=== PATIENT | male | born 1940 | race African-American/Black ===

== ENCOUNTER 2017-02-02 11:32 | Emergency (ER) | payer MEDICAID, MEDICARE, OTHER ==
--- NOTE | 2017-02-02 12:27 | ER Document Report ---
ED Medical Screen (RME) - General Chief Complaint: Leg Pain Stated Complaint: LEFT SIDE, FOOT AND LEG PAIN Time Seen by Provider: 02/02/17 12:17 Mode of Arrival: Ambulatory Information source: Patient, Relative - son Notes: Patient presents with his son for complaints of left ankle pain has been her last couple days. Son reports for the past 2 weeks patient has had increased confusion and slurred speech, progressively worse. Patient was seen by Dr. Landrum and is being scheduled for CT scan. TRAVEL OUTSIDE OF THE [place] IN LAST 30 DAYS: No - Related Data Allergies/Adverse Reactions: No Known Allergies Allergy (Verified 02/02/17 12:15) Past Medical History Renal/ Medical History: Denies: Hx Peritoneal Dialysis Physical Exam - Vital signs Vitals: Temp Pulse Resp BP Pulse Ox 98.5 F 67 16 165/104 H 99 02/02/17 11:39 02/02/17 11:39 02/02/17 11:39 02/02/17 11:39 02/02/17 11:39 Course - Vital Signs Vital signs: Temp Pulse Resp BP Pulse Ox 98.5 F 64 16 175/96 H 99 02/02/17 16:08 02/02/17 16:08 02/02/17 16:08 02/02/17 16:08 02/02/17 16:08 - Laboratory Result Diagrams: 02/02/17 12:45 02/02/17 12:45 Laboratory results interpreted by me: 02/02/17 02/02/17 02/02/17 12:40 12:45 12:45 MCHC 31.6 L RDW 15.9 H Plt Count 133 L Monocytes % 14.6 H Est GFR (Non-Af Amer) 58 L Direct Bilirubin 0.5 H Ur Leukocyte Esterase TRACE H Doctor's Discharge - Discharge Clinical Impression: Left foot pain, Gout Condition: Stable Disposition: HOME, SELF-CARE Additional Instructions: Take Ibuprofen 600 mg by mouth every 6 hours with food to help out with your foot pain. Your EKG is not normal, but we do not have an old one to compare this to. SInce you are not having any chest pain, you must follow-up with your primary care physician to have your symptoms rechecked. Gout You have been diagnosed as having gout. Gout is a problem caused by an excess of uric acid, a natural chemical found in the body. The cause of this disease is unknown. Gout arthritis occurs when crystals of uric acid form in the joints. The big toe is the most common joint involved, but any joint can become affected. Persons with gout may also form uric acid kidney stones, resulting in flank pain and blood in the urine. Nodules of uric acid may form under the skin. The first step of treatment is to decrease the inflammation in the joint with antiinflammatory medication. Medication to lower the uric acid level in the blood may then be prescribed. This medication should be taken regularly, as any sudden change in dosage may provoke an attack of gout. Some foods, such as red meat, can provoke an attack in some gout sufferers. Call the doctor if new symptoms arise, or if you do not improve. Gout Diet Changing your diet can decrease the uric acid in your blood. High levels of uric acid cause gouty arthritis and uric acid kidney stones. If you have gout , you should avoid meats that are high in purine. Meat products to avoid include liver, kidneys, and brains. In general, poultry is better than red meats. Seafoods to avoid include anchovies, sardines, villarreal, mackerel, and scallops. In addition to limiting purine-rich foods, people with gout should limit protein intake to 10-15% of total calories. Carbohydrate intake should be around 50% of total daily calories. Limit fat intake to 30% of total daily calories. Cholesterol intake should be less than 300 mg/day. Maintain or achieve a healthy body weight. Weight loss should be gradual. Rapid weight loss can actually increase uric acid levels temporarily. Alcohol, especially beer, should be avoided. Get plenty of fluids. This dilutes urinary uric acid, and helps prevent uric acid kidney stones. Drink eight to twelve cups of water daily. Referrals: IVAN LANDRUM MD [ACTIVE STAFF] - Follow up as needed
[2017-02-02 13:11] LABS: APPEARANCE,URINE CLEAR; BILIRUBIN,URINE NEGATIVE (NEGATIVE); GLUCOSE, URINE NEGATIVE (NEGATIVE); KETONES,URINE NEGATIVE (NEGATIVE); LEUKOCYTE ESTERASE,URINE TRACE (NEGATIVE); NITRITE,URINE NEGATIVE (NEGATIVE); PROTEIN,URINE NEGATIVE (NEGATIVE); URINE SPECIFIC GRAVITY 1.011; UROBILINOGEN,URINE NEGATIVE mg/dL (<2.0)
[2017-02-02 13:13] LABS: PROTHROMBIN TIME 12.7 SEC (11.4-15.4)
[2017-02-02 13:14] LABS: ABSOLUTE LYMPHOCYTES (AUTO) 1.4 10^3/uL (0.5-4.7); ABSOLUTE MONOCYTES (AUTO) 1.4 10^3/uL (0.1-1.4); ABSOLUTE NEUT (AUTO) 6.7 10^3/uL (1.7-8.2); BASOPHILS % (AUTO) 0.4 % (0-2); EOSINOPHILS % (AUTO) 0.4 % (0-6); HEMATOCRIT 47.5 % (37.9-51.0); HGB HCT DIFFERENCE -2.5; LYMPHOCYTES % (AUTO) 14.3 % (13-45); MEAN CORPUSCULAR HEMOGLOBIN 27.3 pg (27.0-33.4); MEAN CORPUSCULAR HGB CONC 31.6 g/dL (32.0-36.0); MEAN CORPUSCULAR VOLUME 87 fl (80-97); MONOCYTES % (AUTO) 14.6 % (3-13); RED BLOOD COUNT 5.48 10^6/uL (4.35-5.55); RED CELL DISTRIBUTION WIDTH 15.9 % (11.5-14.0); SEGMENTED NEUTROPHILS % (AUTO) 70.3 % (42-78); WHITE BLOOD COUNT 9.5 10^3/uL (4.0-10.5)
[2017-02-02 13:23] LABS: ALANINE AMINOTRANSFERASE 35 U/L (21-72); ALBUMIN 4.2 g/dL (3.5-5.0); ALKALINE PHOSPHATASE 101 U/L (38-126); ANION GAP 12 (5-19); ASPARTATE AMINO TRANSFERASE 27 U/L (17-59); BILIRUBIN,DIRECT 0.5 mg/dL (0.0-0.4); BILIRUBIN,TOTAL 0.7 mg/dL (0.2-1.3); BLOOD UREA NITROGEN 16 mg/dL (7-20); CARBON DIOXIDE 27 mmol/L (22-30); CHLORIDE 104 mmol/L (98-107); CREATININE RESULT 1.21 mg/dL (0.52-1.25); GLUCOSE 94 mg/dL (75-110); POTASSIUM 4.6 mmol/L (3.6-5.0); SODIUM 142.7 mmol/L (137-145); TOTAL PROTEIN 7.8 g/dL (6.3-8.2)
--- NOTE | 2017-02-02 13:51 | EKG REPORT ---
SEVERITY:- ABNORMAL ECG - ATRIAL-PACED COMPLEXES CONSIDER ANTERIOR INFARCT NONSPECIFIC T ABNORMALITIES, LATERAL LEADS : Confirmed by: Wilder Rizzo 02-Feb-2017 13:50:23
[2017-02-02] MEDS ORDERED: IBUPROFEN 600 MG TABLET PO ONE (14:10)
--- NOTE | 2017-02-02 14:21 | ER Document Report ---
ED Extremity Problem, Lower - General Chief Complaint: Leg Pain Stated Complaint: LEFT SIDE, FOOT AND LEG PAIN Time Seen by Provider: 02/02/17 12:17 Mode of Arrival: Ambulatory Notes: The patient is a 76-year-old male, past medical history hypertension, gout, history of [place], history of stroke, presents with 2 weeks of increasing left foot pain. In addition, he was having slurred speech a week ago, but he says that this has resolved. He saw his primary care physician, Dr. Landrum, yesterday and was started on Neurontin. He is also scheduled for an outpatient CT scan next week. He cannot remember what he takes in the past to help with his gout. He denies nausea, vomiting, numbness, tingling, focal weakness, blurry vision, chest pain, shortness of breath, fevers or headache. TRAVEL OUTSIDE OF THE [place] IN LAST 30 DAYS: No - Related Data Allergies/Adverse Reactions: No Known Allergies Allergy (Verified 02/02/17 12:15) Past Medical History - General Information source: Patient, Relative - son - Social History Smoking Status: Unknown if Ever Smoked Family History: Reviewed & Not Pertinent Patient has suicidal ideation: No Patient has homicidal ideation: No Renal/ Medical History: Denies: Hx Peritoneal Dialysis Review of Systems - Review of Systems Notes: REVIEW OF SYSTEMS: CONSTITUTIONAL: -fevers, -chills EENT: -eye pain, -difficulty swallowing, -nasal congestion CARDIOVASCULAR:-chest pain, -syncope. RESPIRATORY: -cough, -SOB GASTROINTESTINAL: -abdominal pain, -nausea, -vomiting, -diarrhea GENITOURINARY: -dysuria, -hematuria MUSCULOSKELETAL: +left foot pain, -back pain, -neck pain SKIN: -rash or skin lesions. HEMATOLOGIC: -easy bruising or bleeding. LYMPHATIC: -swollen, enlarged glands. NEUROLOGICAL: -altered mental status or loss of consciousness, -headache, - focal weakness or numbness PSYCHIATRIC: -anxiety, -depression. ALL OTHER SYSTEMS REVIEWED AND NEGATIVE. Physical Exam - Vital signs Vitals: Temp Pulse Resp BP Pulse Ox 98.5 F 67 16 165/104 H 99 02/02/17 11:39 02/02/17 11:39 02/02/17 11:39 02/02/17 11:39 02/02/17 11:39 - Notes Notes: PHYSICAL EXAMINATION: GENERAL: Well-appearing, well-nourished and in no acute distress. HEAD: Atraumatic, normocephalic. EYES: Pupils equal round and reactive to light, extraocular movements intact, sclera anicteric, conjunctiva are normal. ENT: nares patent, oropharynx clear without exudates. Moist mucous membranes. NECK: Normal range of motion, supple without lymphadenopathy LUNGS: Breath sounds clear to auscultation bilaterally and equal. No wheezes rales or rhonchi. HEART: Regular rate and rhythm without murmurs ABDOMEN: Soft, nontender, normoactive bowel sounds. No guarding, no rebound. No masses appreciated. EXTREMITIES: Mild tenderness and swelling over left foot diffusely, no erythema and storng pulses, normal range of motion, no pitting or edema. No cyanosis. NEUROLOGICAL: Cranial nerves grossly intact. Normal speech. Normal sensory and motor exams. PSYCH: Normal mood, normal affect. SKIN: Warm, Dry, normal turgor, no rashes or lesions noted. Course - Re-evaluation Re-evalutation: Labs, head CT and EKG performed prior to my evaluation in triage. Patient with absolutely no chest pain or neuro symptoms at this time. EKG shows nonspecific T abnormalities in the anterior lateral leads. Repeat EKG performed 2 hours later shows no changes. Troponin negative. No old EKG to compare. Head CT does not show any acute bleed, but it does show evidence of old infarcts. Patient with no neuro symptoms at this time. Patient's kidney function is normal, so will begin NSAIDs to help with his gout pain. He also has Neurontin prescribed to him by his primary care physician yesterday. Strong pulses and no evidence of necrotizing fasciitis or acute limb ischemia. Will discharge patient home with follow-up at his primary care physician. - Vital Signs Vital signs: Temp Pulse Resp BP Pulse Ox 98.5 F 67 16 182/98 H 100 02/02/17 11:39 02/02/17 11:39 02/02/17 14:07 02/02/17 14:07 02/02/17 14:07 - Laboratory Result Diagrams: 02/02/17 12:45 02/02/17 12:45 Laboratory results interpreted by me: 02/02/17 02/02/17 02/02/17 12:40 12:45 12:45 MCHC 31.6 L RDW 15.9 H Plt Count 133 L Monocytes % 14.6 H Est GFR (Non-Af Amer) 58 L Direct Bilirubin 0.5 H Ur Leukocyte Esterase TRACE H - Diagnostic Test Radiology reviewed: Image reviewed, Reports reviewed Radiology results interpreted by me: Head CT: NAD, evidence of old infarcts Left foot x-ray: No fractures or dislocations - EKG Interpretation by Me EKG shows normal: Sinus rhythm, [place], Intervals, QRS Complexes When compared to previous EKG there are: Previous EKG unavailable Additional EKG results interpreted by me: Non-specific ST changes in V3 and V4. 2 EKGs performed 2 hours apart show no dynamic changes. Discharge - Discharge Clinical Impression: Left foot pain Gout Qualifiers: Gout site: foot Gout etiology: unspecified cause Laterality: left Chronicity: chronic Presence of tophus: without tophus Condition: Stable Disposition: HOME, SELF-CARE Additional Instructions: Take Ibuprofen 600 mg by mouth every 6 hours with food to help out with your foot pain. Your EKG is not normal, but we do not have an old one to compare this to. SInce you are not having any chest pain, you must follow-up with your primary care physician to have your symptoms rechecked. Gout You have been diagnosed as having gout. Gout is a problem caused by an excess of uric acid, a natural chemical found in the body. The cause of this disease is unknown. Gout arthritis occurs when crystals of uric acid form in the joints. The big toe is the most common joint involved, but any joint can become affected. Persons with gout may also form uric acid kidney stones, resulting in flank pain and blood in the urine. Nodules of uric acid may form under the skin. The first step of treatment is to decrease the inflammation in the joint with antiinflammatory medication. Medication to lower the uric acid level in the blood may then be prescribed. This medication should be taken regularly, as any sudden change in dosage may provoke an attack of gout. Some foods, such as red meat, can provoke an attack in some gout sufferers. Call the doctor if new symptoms arise, or if you do not improve. Gout Diet Changing your diet can decrease the uric acid in your blood. High levels of uric acid cause gouty arthritis and uric acid kidney stones. If you have gout , you should avoid meats that are high in purine. Meat products to avoid include liver, kidneys, and brains. In general, poultry is better than red meats. Seafoods to avoid include anchovies, sardines, villarreal, mackerel, and scallops. In addition to limiting purine-rich foods, people with gout should limit protein intake to 10-15% of total calories. Carbohydrate intake should be around 50% of total daily calories. Limit fat intake to 30% of total daily calories. Cholesterol intake should be less than 300 mg/day. Maintain or achieve a healthy body weight. Weight loss should be gradual. Rapid weight loss can actually increase uric acid levels temporarily. Alcohol, especially beer, should be avoided. Get plenty of fluids. This dilutes urinary uric acid, and helps prevent uric acid kidney stones. Drink eight to twelve cups of water daily. Referrals: IVAN LANDRUM MD [ACTIVE STAFF] - Follow up as needed
[2017-02-02 16:09] VITALS: BP 175/96
--- NOTE | 2017-02-03 12:04 | EKG REPORT ---
SEVERITY:- ABNORMAL ECG - ATRIAL-PACED COMPLEXES CONSIDER ANTERIOR INFARCT AGE INDETERMINATE NONSPECIFIC T ABNORMALITIES, LATERAL LEADS : Confirmed by: Wilder Rizzo 03-Feb-2017 12:03:50
== END 2017-02-02 16:09 | disposition home or self-care (01) ==
LOC: ER 11:32
DX: M10.9 Gout, unspecified (principal); M79.672 Pain in left foot; M79.605 Pain in left leg; I10 Essential (primary) hypertension; I25.2 Old myocardial infarction; Z86.73 Personal history of transient ischemic attack (TIA), and cerebral infarction without residual deficits; Z79.899 Other long term (current) drug therapy
CPT/HCPCS: 93005; 99284; 36415; 85025; 85610; 80053; 81001; 84484; 73610; 71020; 70450; 93010; A9270

== ENCOUNTER 2017-02-07 12:24 | Emergency (ER) | payer MEDICARE ==
--- NOTE | 2017-02-07 12:59 | ER Document Report ---
ED Medical Screen (RME) - General Chief Complaint: Foot Pain Stated Complaint: LEFT LEG PAIN Time Seen by Provider: 02/07/17 12:54 Information source: Patient Notes: 76-year-old male who presents with the onset last week of some pain to his left leg. Patient states he has had gout multiple times. Patient states she was seen and evaluated this facility. Patient states however that the pain started behind his left leg and has now radiated down to his foot. Patient states the pain is to his anterior gallo ankle and foot. Patient states that his "gout" attacks in the past have never been extending this high in his leg. TRAVEL OUTSIDE OF THE [place] IN LAST 30 DAYS: No - Related Data Allergies/Adverse Reactions: No Known Allergies Allergy (Verified 02/07/17 12:26) Past Medical History Renal/ Medical History: Denies: Hx Peritoneal Dialysis Physical Exam - Vital signs Vitals: Temp Pulse Resp BP Pulse Ox 97.9 F 63 16 125/74 99 02/07/17 12:30 02/07/17 12:30 02/07/17 12:30 02/07/17 12:30 02/07/17 12:30 Course - Vital Signs Vital signs: Temp Pulse Resp BP Pulse Ox 97.9 F 63 16 125/74 99 02/07/17 12:30 02/07/17 12:30 02/07/17 12:30 02/07/17 12:30 02/07/17 12:30
[2017-02-07 13:36] LABS: ABSOLUTE NEUT (AUTO) 4.5 10^3/uL (1.7-8.2); BASOPHILS % (AUTO) 0.6 % (0-2); EOSINOPHILS % (AUTO) 0.6 % (0-6); HEMATOCRIT 44.6 % (37.9-51.0); HGB HCT DIFFERENCE -2.6; LYMPHOCYTES % (AUTO) 15.3 % (13-45); MEAN CORPUSCULAR HEMOGLOBIN 27.5 pg (27.0-33.4); MEAN CORPUSCULAR HGB CONC 31.5 g/dL (32.0-36.0); MEAN CORPUSCULAR VOLUME 87 fl (80-97); MONOCYTES % (AUTO) 14.8 % (3-13); RED CELL DISTRIBUTION WIDTH 15.7 % (11.5-14.0); SEGMENTED NEUTROPHILS % (AUTO) 68.7 % (42-78); WHITE BLOOD COUNT 6.6 10^3/uL (4.0-10.5)
[2017-02-07 13:51] LABS: ANION GAP 9 (5-19); BLOOD UREA NITROGEN 24 mg/dL (7-20); CALCIUM 9.4 mg/dL (8.4-10.2); CARBON DIOXIDE 27 mmol/L (22-30); CHLORIDE 106 mmol/L (98-107); CREATININE RESULT 1.17 mg/dL (0.52-1.25); GLUCOSE 106 mg/dL (75-110); POTASSIUM 5.2 mmol/L (3.6-5.0); SODIUM 141.8 mmol/L (137-145)
--- NOTE | 2017-02-07 13:51 | ER Document Report ---
ED General - General Chief Complaint: Foot Pain Stated Complaint: LEFT LEG PAIN Time Seen by Provider: 02/07/17 12:54 Information source: Patient Notes: 76-year-old male presents with one week duration of leg pain. Patient states he feels ice cold. Denies any trauma, patient was seen here one week prior TRAVEL OUTSIDE OF THE [place] IN LAST 30 DAYS: No - HPI Onset: Last week Onset/Duration: Persistent Quality of pain: Achy, Sharp Severity: Moderate Pain Level: 4 Associated symptoms: None Exacerbated by: Denies Relieved by: Denies Similar symptoms previously: Yes Recently seen / treated by doctor: Yes - Related Data Allergies/Adverse Reactions: No Known Allergies Allergy (Verified 02/07/17 12:26) Past Medical History - General Information source: Patient - Social History Smoking Status: Never Smoker Cigarette use (# per day): No Chew tobacco use (# tins/day): No Smoking Education Provided: No Family History: Reviewed & Not Pertinent Patient has suicidal ideation: No Patient has homicidal ideation: No - Past Medical History Cardiac Medical History: Reports: Hx Hypercholesterolemia, Hx Hypertension Renal/ Medical History: Denies: Hx Peritoneal Dialysis Review of Systems - Review of Systems Notes: PHYSICAL EXAMINATION: GENERAL: Well-appearing, well-nourished and in no acute distress. HEAD: Atraumatic, normocephalic. EYES: Pupils equal round and reactive to light, extraocular movements intact, sclera anicteric, conjunctiva are normal. ENT: Nares patent, oropharynx clear without exudates. Moist mucous membranes. NECK: Normal range of motion, supple without lymphadenopathy LUNGS: Breath sounds clear to auscultation bilaterally and equal. No wheezes rales or rhonchi. HEART: Regular rate and rhythm without murmurs ABDOMEN: Soft, nontender, nondistended abdomen. No guarding, no rebound. No masses appreciated. Musculoskeletal: Right leg warm good pulses noted left leg ice cold no acute cyanosis noted however no pulse noted on palpation NEUROLOGICAL: Cranial nerves grossly intact. Normal speech, normal gait. Normal sensory, motor exams PSYCH: Normal mood, normal affect. Physical Exam - Vital signs Vitals: Temp Pulse Resp BP Pulse Ox 97.9 F 63 16 125/74 99 02/07/17 12:30 02/07/17 12:30 02/07/17 12:30 02/07/17 12:30 02/07/17 12:30 Course - Re-evaluation Re-evalutation: 02/07/17 14:14 vidashai paged for transfer 02/07/17 14:25 Dr Ko notes left popliteal occlusion with very little flow in the dorsalis pedis Dr Callahan accepts to the ED [facility]. 02/07/17 14:52 Patient awaiting transfer at this time otherwise stable - Vital Signs Vital signs: Temp Pulse Resp BP Pulse Ox 97.9 F 63 16 125/74 99 02/07/17 12:30 02/07/17 12:30 02/07/17 12:30 02/07/17 12:30 02/07/17 12:30 - Laboratory Result Diagrams: 02/07/17 13:10 02/07/17 13:10 Laboratory results interpreted by me: 02/07/17 02/07/17 13:10 13:10 MCHC 31.5 L RDW 15.7 H Plt Count 149 L Monocytes % 14.8 H Potassium 5.2 H BUN 24 H Critical Care Note - Critical Care Note Total time excluding time spent on procedures (mins): 44 Comments: 44 minutes of critical care time spent in direct contact evaluating and reevaluating the patient, treating symptoms, reviewing labs and studies and speaking with family and consultants excluding any procedures Discharge - Discharge Clinical Impression: Occlusion of left popliteal artery Pain of lower extremity Qualifiers: Laterality: left Qualified Code(s): M79.605 - Pain in left leg Condition: Fair Disposition: [facility]
[2017-02-07] MEDS ORDERED: HEPARIN SOD (PORCINE) 1,000 UNIT/ML 10 ML VIAL IV ONE (14:15)
[2017-02-07] MEDS ORDERED: HEPARIN SOD (PORCINE) 1,000 UNIT/ML 10 ML VIAL IV PRN (14:15)
[2017-02-07] MEDS ORDERED: HEPARIN SODIUM,PORCINE/D5W 250 ML IV PRN (14:15)
[2017-02-07 14:41] LABS: PROTHROMBIN TIME 12.8 SEC (11.4-15.4)
[2017-02-07 14:42] LABS: PARTIAL THROMBOPLASTIN TIME 31.8 SEC (23.5-35.8)
[2017-02-07] MEDS ORDERED: HYDROMORPHONE HCL INJ/PF 2 MG/ML AMPULE IV ONE (15:05)
[2017-02-07 15:35] VITALS: BP 176/90
--- NOTE | 2017-02-07 16:58 | XCELERA REPORT ---
[address] [address] Lower Extremity Venous Evaluation Name: LESLI MOHAN Age: 76 yrs Gender: Male : 1940 Patient Status: Preadmit Patient Location: ER Study Date: 02/07/2017 01:33 PM Procedure: Color flow and duplex imaging of the veins of the left lower extremity as well as the right Common Femoral vein. Reason For Study: left lower leg Ordering Physician: CONSUELO CASTILLO Performed By: Stephanie Gillis Right Sided Venous Evaluation Incidental findings of totally occluded Femoral artery with no reconstitution, till minimal, trickle flow in the Anterior Tibial artery. Normal vessel filling wall to wall, compression and augmentation as well as Colour flow down to the infrageniculate veins. Critical Findings Called in to the ER at abouit 1600. Interpretation Summary No duplex evidence of DVT or obstruction in the left lower extremity nor in the right Common Femoral vein. Limb threatening lack of arterial flow to left leg. The patient is being transferred to [facility] for arterial work. : CONSUELO CASTILLO > Lee Ko
== END 2017-02-07 15:40 | disposition short-term general hospital (02) ==
LOC: ER 12:24
DX: I77.1 Stricture of artery (principal); M79.605 Pain in left leg
CPT/HCPCS: 96376; 99291; 96375; 96365; 36415; 85025; 85610; 85730; 80048; 93971 ×2; J1644 ×2; J1170

== ENCOUNTER 2017-05-05 12:41 | Inpatient (IN) | payer MEDICARE ==
--- NOTE | 2017-05-05 12:43 | ER Document Report ---
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 Pt had possible seizure last night, found unresponsive today. TRAVEL OUTSIDE OF THE [place] IN LAST 30 DAYS: No - HPI Onset: Just prior to arrival Onset/Duration: Sudden Quality of pain: No pain Severity: Severe Pain Level: Denies Associated symptoms: Weakness Exacerbated by: Denies Relieved by: Denies Similar symptoms previously: No Recently seen / treated by doctor: No - Related Data Allergies/Adverse Reactions: No Known Allergies Allergy (Verified 02/07/17 12:26) Past Medical History - Social History Smoking Status: Never Smoker Cigarette use (# per day): No Chew tobacco use (# tins/day): No Smoking Education Provided: No Family History: Reviewed & Not Pertinent - Past Medical History Cardiac Medical History: Reports: Hx Heart Attack, Hx Hypercholesterolemia, Hx Hypertension Renal/ Medical History: Denies: Hx Peritoneal Dialysis Past Surgical History: Reports: Hx Cardiac Surgery - pacemaker Review of Systems - Review of Systems -: Yes ROS unobtainable due to patient's medical condition Physical Exam - Vital signs Vitals: Pulse Ox 100 05/05/17 14:00 Interpretation: Tachycardic, Other - General General appearance: Unresponsive In distress: Severe - HEENT Head: Normocephalic, Atraumatic Eyes: Normal, Other Pupils: Pinpoint - Respiratory Respiratory status: Other - intubated Chest status: Nontender Breath sounds: Normal Chest palpation: Normal - Cardiovascular Rhythm: Tachycardia Heart sounds: Normal auscultation Murmur: No - Abdominal Inspection: Normal Distension: No distension Bowel sounds: Normal Tenderness: Nontender - Back Back: Normal, Nontender - Extremities General upper extremity: Normal inspection, Nontender, Normal color, Normal ROM , Normal temperature General lower extremity: Other - left bka, wound noted. No: Janett's sign - Neurological Neuro grossly intact: No Cognition: Other Christian Coma Scale Eye Opening: None [place] Coma Scale Verbal: None [place] Coma Scale Motor: None [place] Coma Scale Total: 3 Speech: Normal Sensory: Other Course - Re-evaluation Re-evalutation: 05/05/17 12:52 pt intubated by ems, pt concerning for cva bleed on avisis 05/05/17 14:14 CT head was negative, patient has been intubated initial GCS 3 however over the past hour he has moved his bilateral upper extremities, no obvious sign of infection is noted however the lactate is significantly elevated. This may have just been postictal in nature. Patient will be admitted to the ICU to the hospitalist service he is noted to be severely acidotic metabolic Bicarb was given - Vital Signs Vital signs: Temp Pulse Resp BP Pulse Ox 100 05/05/17 14:00 - Laboratory Result Diagrams: 05/05/17 12:54 05/05/17 12:54 Laboratory results interpreted by me: 05/05/17 05/05/17 05/05/17 12:50 12:54 12:54 WBC 13.9 H RBC 4.29 L Hgb 11.3 L MCH 26.3 L MCHC 28.6 L RDW 18.7 H Seg Neutrophils % 80.8 H Absolute Neutrophils 11.2 H PT 15.8 H VBG pH VBG HCO3 Sodium Chloride Carbon Dioxide Anion Gap Creatinine Est GFR ( Amer) Est GFR (Non-Af Amer) Glucose Lactic Acid Direct Bilirubin ALT Urine Protein 100 H Urine Ketones TRACE H Urine Blood LARGE H Ur Leukocyte Esterase SMALL H 05/05/17 05/05/17 05/05/17 12:54 12:54 12:54 WBC RBC Hgb MCH MCHC RDW Seg Neutrophils % Absolute Neutrophils PT VBG pH 6.80 L* VBG HCO3 7.5 L Sodium 145.4 H Chloride 111 H Carbon Dioxide 8 L* Anion Gap 26 H Creatinine 1.76 H Est GFR ( Amer) 46 L Est GFR (Non-Af Amer) 38 L Glucose 142 H Lactic Acid 17.3 H Direct Bilirubin 0.6 H ALT 9 L Urine Protein Urine Ketones Urine Blood Ur Leukocyte Esterase - Diagnostic Test Radiology reviewed: Image reviewed, Reports reviewed - EKG Interpretation by Me EKG shows normal: Sinus rhythm, [place], Intervals, QRS Complexes Critical Care Note - Critical Care Note Total time excluding time spent on procedures (mins): 45 Comments: 45 minutes of critical care time spent in direct contact evaluating and reevaluating the patient, treating symptoms, reviewing labs and studies and speaking with family and consultants excluding any procedures Discharge - Discharge Clinical Impression: Intubated for airway protection, Severe metabolic acidosis, Lactic acidosis, Unresponsiveness Condition: Critical Disposition: ADMITTED INPATIENT Admitting Provider: Hospitalist Unit Admitted: ICU
[2017-05-05 13:09] LABS: VENOUS BLOOD BASE EXCESS -26.8 mmol/L; VENOUS BLOOD HCO3 7.5 mmol/L (20-32); VENOUS BLOOD PCO2 49.3 mmHg (35-63)
[2017-05-05 13:10] LABS: PROTHROMBIN TIME 15.8 SEC (11.4-15.4)
[2017-05-05 13:12] LABS: ABSOLUTE EOSINOPHILS # (AUTO) 0.1 10^3/uL (0.0-0.6); ABSOLUTE LYMPHOCYTES (AUTO) 2.1 10^3/uL (0.5-4.7); ABSOLUTE MONOCYTES (AUTO) 0.5 10^3/uL (0.1-1.4); ABSOLUTE NEUT (AUTO) 11.2 10^3/uL (1.7-8.2); BASOPHILS % (AUTO) 0.2 % (0-2); EOSINOPHILS % (AUTO) 0.7 % (0-6); HEMATOCRIT 39.5 % (37.9-51.0); HEMOGLOBIN 11.3 g/dL (13.5-17.0); LYMPHOCYTES % (AUTO) 14.9 % (13-45); MEAN CORPUSCULAR HEMOGLOBIN 26.3 pg (27.0-33.4); MEAN CORPUSCULAR HGB CONC 28.6 g/dL (32.0-36.0); MEAN CORPUSCULAR VOLUME 92 fl (80-97); MONOCYTES % (AUTO) 3.4 % (3-13); RED BLOOD COUNT 4.29 10^6/uL (4.35-5.55); RED CELL DISTRIBUTION WIDTH 18.7 % (11.5-14.0); SEGMENTED NEUTROPHILS % (AUTO) 80.8 % (42-78); WHITE BLOOD COUNT 13.9 10^3/uL (4.0-10.5)
[2017-05-05 13:13] LABS: VENOUS BLOOD PH 6.8 (7.30-7.42)
[2017-05-05 13:18] LABS: APPEARANCE,URINE CLOUDY; BILIRUBIN,URINE NEGATIVE (NEGATIVE); GLUCOSE, URINE NEGATIVE (NEGATIVE); KETONES,URINE TRACE mg/dL (NEGATIVE); LEUKOCYTE ESTERASE,URINE SMALL (NEGATIVE); NITRITE,URINE NEGATIVE (NEGATIVE); PROTEIN,URINE 100 mg/dL (NEGATIVE); URINE SPECIFIC GRAVITY 1.019; UROBILINOGEN,URINE NEGATIVE mg/dL (<2.0)
--- NOTE | 2017-05-05 13:19 | RADIOLOGY REPORT (SQ) ---
EXAM DESCRIPTION: CHEST SINGLE VIEW COMPLETED DATE/TIME: 05/05/2017 1:08 pm REASON FOR STUDY: post intubation COMPARISON: 02/02/2017 EXAM PARAMETERS: NUMBER OF VIEWS: One view. TECHNIQUE: Single frontal radiographic view of the chest acquired. RADIATION DOSE: NA LIMITATIONS: None. FINDINGS: LUNGS AND PLEURA: No opacities, masses or pneumothorax. No pleural effusion. MEDIASTINUM AND HILAR STRUCTURES: No masses. Contour normal. HEART AND VASCULAR STRUCTURES: Heart normal in size. Normal vasculature. BONES: No acute findings. HARDWARE: Battery pack and leads remain in place. OTHER: No other significant finding. IMPRESSION: NO ACUTE RADIOGRAPHIC FINDING IN THE CHEST. TECHNICAL DOCUMENTATION: JOB ID: [id number]
[2017-05-05] MEDS ORDERED: SODIUM BICARBONATE 8.4% INJ 50 MEQ/50 ML DISP.SYRIN IV ONE (13:22)
[2017-05-05 13:24] LABS: ALANINE AMINOTRANSFERASE 9 U/L (21-72); ALBUMIN 3.9 g/dL (3.5-5.0); ALKALINE PHOSPHATASE 116 U/L (38-126); ASPARTATE AMINO TRANSFERASE 34 U/L (17-59); BILIRUBIN,DIRECT 0.6 mg/dL (0.0-0.4); BILIRUBIN,TOTAL 0.6 mg/dL (0.2-1.3); BLOOD UREA NITROGEN 20 mg/dL (7-20); CALCIUM 9.8 mg/dL (8.4-10.2); CHLORIDE 111 mmol/L (98-107); CREATININE RESULT 1.76 mg/dL (0.52-1.25); GLUCOSE 142 mg/dL (75-110); POTASSIUM 4.6 mmol/L (3.6-5.0); SODIUM 145.4 mmol/L (137-145); TOTAL PROTEIN 7.7 g/dL (6.3-8.2)
[2017-05-05 13:29] LABS: HGB HCT DIFFERENCE -5.6
[2017-05-05 13:30] LABS: ANION GAP 26 (5-19)
[2017-05-05 13:37] LABS: CARBON DIOXIDE 8 mmol/L (22-30)
--- NOTE | 2017-05-05 13:37 | RADIOLOGY REPORT (SQ) ---
EXAM DESCRIPTION: CT HEAD WITHOUT COMPLETED DATE/TIME: 05/05/2017 1:24 pm REASON FOR STUDY: altered COMPARISON: None. TECHNIQUE: Axial images acquired through the brain without intravenous contrast. Images reviewed wi th bone, brain and subdural windows. Images stored on PACS. All CT scanners at this facility use dose modulation, iterative reconstruction, and/or weight based d osing when appropriate to reduce radiation dose to as low as reasonably achievable (ALARA). [facility]: Dose Right [facility]: CareDose [facility]: Dose Right [facility]: Teradose 4D [facility]: Smart [employer] RADIATION DOSE: Up-to-date CT equipment and radiation dose reduction techniques were employed. CTDIv ol: 63.6 mGy. DLP: 1163 mGy-cm. mGy. LIMITATIONS: None. FINDINGS: VENTRICLES: Prominent. CEREBRUM: No masses. No hemorrhage. No midline shift. Areas of low density in the white matter mos t likely due to chronic micro-vascular ischemic change. No evidence for acute infarction. 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 EXTRAAXIAL SPACES: Mild age-related involutional change. No fluid collections. No masses. ORBITS AND GLOBE: No intra- or extraconal masses. Normal contour of globe without masses. CALVARIUM: No fracture. PARANASAL SINUSES: No fluid or mucosal thickening. SOFT TISSUES: No mass or hematoma. OTHER: No other significant finding. IMPRESSION: MILD CHRONIC CHANGES OF ATROPHY AND MICROVASCULAR ISCHEMIA. NO ACUTE PROCESS. TECHNICAL DOCUMENTATION: JOB ID: [id number] Quality ID # [id number]: Final reports with documentation of one or more dose reduction techniques (e.g., Au tomated exposure control, adjustment of the mA and/or kV according to patient size, use of iterative reconstruction technique) 2010 [employer]- All Rights Reserved
[2017-05-05] MEDS ORDERED: CEFTRIAXONE 1 GM/D5W RTU 50 ML IV ONE (13:42)
[2017-05-05] MEDS ORDERED: PROPOFOL 100 ML IV ONE (13:44)
[2017-05-05] MEDS: PROPOFOL 100 ML IV PRN ×3 (14:04→17:47)
[2017-05-05] MEDS: NORMAL SALINE 1000 ML 1,000 ML IV PRN ×5 (14:05→21:09)
--- NOTE | 2017-05-05 14:24 | RADIOLOGY REPORT (SQ) ---
EXAM DESCRIPTION: KUB/ABDOMEN (SINGLE VIEW) COMPLETED DATE/TIME: 05/05/2017 2:16 pm REASON FOR STUDY: line placement COMPARISON: None. NUMBER OF VIEWS: One view. TECHNIQUE: Supine radiographic image of the abdomen acquired. LIMITATIONS: None. FINDINGS: BOWEL GAS PATTERN: NG tube is been placed. Tip lies in the stomach. There is mild small bowel prominence this could represent early obstruction or ileus. CALCIFICATIONS: No suspicious calcifications. SOFT TISSUES: No gross mass or suggestion of organomegaly. HARDWARE: None in the abdomen. BONES: No acute fracture. No worrisome bone lesions. OTHER: No other significant finding. IMPRESSION: NG tube appears to be in satisfactory position. Mild small-bowel distention as describe d. TECHNICAL DOCUMENTATION: JOB ID: [id number] [employer]- All Rights Reserved
[2017-05-05] MEDS ORDERED: NORMAL SALINE 1000 ML 1,000 ML IV PRN (14:36)
[2017-05-05] MEDS ORDERED: PIPERACILLIN SODIUM/TAZOBACTAM 4.5 GM in NORMAL SALINE 100 ML IV SCH (15:00)
[2017-05-05] MEDS ORDERED: VANCOMYCIN HCL 0 MG in DEXTROSE 5%-WATER 250 ML IV NR (15:00)
[2017-05-05 15:33] LABS: MAGNESIUM 2.5 mg/dL (1.6-2.3)
[2017-05-05] MEDS ORDERED: PIPERACILLIN SODIUM/TAZOBACTAM 3.375 GM in NORMAL SALINE 100 ML IV ONE (16:00)
[2017-05-05 16:05] LABS: THYROID STIMULATING HORMONE 3.97 uIU/mL (0.47-4.68)
[2017-05-05 17:03] LABS: ARTERIAL BLOOD BASE EXCESS -7.1 mmol/L; ARTERIAL BLOOD O2 SATURATION 99.1 % (94-98)
[2017-05-05] MEDS: VANCOMYCIN HCL 1,000 MG in DEXTROSE 5%-WATER 250 ML IV SCH (17:44)
[2017-05-05 17:50] LABS: CREATINE KINASE MB 3.17 ng/mL (<4.55)
[2017-05-05 17:56] LABS: TROPONIN I 0.312 ng/mL
--- NOTE | 2017-05-05 18:57 | PDOC PROGRESS REPORT ---
Bedside Procedure - Central Line Right Internal jugular Time completed: 18:10 Consent obtained: Yes Central line pre-insertion: Sterile PPE donned, Betadine prep applied, Chloraprep applied, Sterile drapes applied Central line lumen type: Triple Anesthetic type: 1% Lidocaine Ultrasound guided: Yes Line secured with sutures: Yes Central line post-insertion: Biopatch applied, Sutured, Sterile dressing applied , Position confirmed w/ CXR Complications: No
--- NOTE | 2017-05-05 19:08 | RADIOLOGY REPORT (SQ) ---
EXAM DESCRIPTION: CHEST SINGLE VIEW COMPLETED DATE/TIME: 05/05/2017 6:55 pm REASON FOR STUDY: central line placement COMPARISON: 05/05/2017 EXAM PARAMETERS: NUMBER OF VIEWS: One view TECHNIQUE: Single frontal radiograph of the chest. RADIATION DOSE: N/A LIMITATIONS: None. FINDINGS: TEMPORARY SUPPORT DEVICES:ETT in expected location. NG tube courses below the omar-diaphr agm in to the stomach. Central venous access catheter tip is in expected location. Cavoatrial juncti on. LUNGS AND PLEURA: No opacities. Bilateral pleural effusions and basilar opacities. No masses. No pneu mothorax. MEDIASTINUM AND HILAR STRUCTURES: No masses. Contour normal. HEART AND VASCULAR STRUCTURES: Heart normal in size. normal vascularity. Pacemaker unchanged. BONES: No acute findings. OTHER: No other significant finding. IMPRESSION: Bilateral pleural effusions and basilar opacities. SUPPORT DEVICE(S) IN EXPECTED LOCATIONS. TECHNICAL DOCUMENTATION: JOB ID: [id number] [employer] All Rights Reserved
[2017-05-05 19:23] LABS: ARTERIAL BLOOD BASE EXCESS -4.7 mmol/L; ARTERIAL BLOOD O2 SATURATION 99.3 % (94-98)
[2017-05-05] MEDS ORDERED: NORMAL SALINE 1000 ML 2,000 ML IV ONE (19:45)
--- NOTE | 2017-05-05 21:52 | PDOC H&P ---
History of Present Illness Admission Date/PCP: 05/05/17 14:45 History of Present Illness: Patient was transferred to the emergency room on mechanical ventilation, he was tracheally intubated on the field for airway protection, EMG was dispatched to patient's residence because he was unresponsive ,no history could be obtained from this patient. In the emergency room he was evaluated the initial venous blood gas showed pH 6.9, the CO2 was 8 he was severely acidotic there was associated lactic acidosis, the lactic acid level was 17.3, he was hemodynamically unstable with low blood pressure. Patient has a history of peripheral vascular disease, status post amputation of the left leg, history of atrial fibrillation on chronic anticoagulation with Eliquis. Patient is new to our practice I saw him for the first time couple of weeks ago when he came to establish with us. He recently moved from [facility] to [place], [place]. On inspection of the stump there is an area of ulceration on the dorsal aspect of the stump, it looks infected with greenish discharge suggesting Pseudomonas infection. The nasogastric tube was inserted ,showed coffee-ground aspirate suggesting stress ulcers, GI bleed. No history could be obtained from this patient,record was reviewed ,he is started on Zosyn, vancomycin and clindamycin intravenously. Past Medical History Cardiac Medical History: Reports: Atrial Fibrillation, Myocardial Infarction, Hyperlipidema, Hypertension, Peripheral Vascular Disease Social History Smoking Status: Former Smoker Family History Family History: Reviewed & Not Pertinent Parental Family History Reviewed: Yes Children Family History Reviewed: Yes Sibling(s) Family History Reviewed.: Yes Medication/Allergy Home Medications: Acetaminophen [Tylenol 325 mg Tablet] 650 mg PO Q4HP PRN 05/05/17 Apixaban [Eliquis 5 mg Tablet] 5 mg PO Q12 05/05/17 Aspirin [Aspirin 81 mg Chewable Tablet] 81 mg PO DAILY 05/05/17 Atorvastatin Calcium [Lipitor 40 mg Tablet] 40 mg PO DAILY 05/05/17 Carvedilol [Coreg 3.125 mg Tablet] 3.125 mg PO Q12 05/05/17 Clopidogrel Bisulfate [Plavix 75 mg Tablet] 75 mg PO DAILY 05/05/17 Furosemide [Lasix] 40 mg PO DAILY 05/05/17 Polyethylene Glycol 3350 [Miralax Powder 17 gm/Packet] 17 gm PO DAILY 05/05/17 Potassium Chloride [K-Tab ER] 20 meq PO DAILY 05/05/17 Tamsulosin HCl [Flomax 0.4 mg Cap.sr] 0.4 mg PO DAILY 05/05/17 Tramadol HCl [Ultram 50 mg Tablet] 50 mg PO Q4HP PRN 05/05/17 Allergies/Adverse Reactions: No Known Allergies Allergy (Verified 02/07/17 12:26) Review of Systems ROS unobtainable: Due to endotracheal tube, Due to mental status Physical Exam Vital Signs: Temp Pulse Resp BP Pulse Ox 97.7 F 72 12 110/78 100 05/05/17 20:00 05/05/17 20:00 05/05/17 20:00 05/05/17 20:00 05/05/17 20:04 Intake & Output 05/04/17 05/05/17 05/06/17 06:59 06:59 06:59 Intake Total 500 Output Total 550 Balance -50 Weight 65.9 kg General appearance: PRESENT: other - Patient on mechanical ventilation Respiratory exam: PRESENT: other - Auscultation, there is equal air entry on both lung roberson Cardiovascular exam: PRESENT: +S1, +S2 GI/Abdominal exam: PRESENT: soft Extremities exam: PRESENT: other - Amputation above knee of left leg, there is ulceration on the stump with greenish discharge Neurological exam: PRESENT: other - Sedated on mechanical ventilation Results Laboratory Results: 05/05/17 05/05/17 05/05/17 15:30 16:40 17:15 Carbonic Acid 1.50 H HCO3/H2CO3 Ratio 13:1 ABG pH 7.23 L ABG pCO2 49.8 H ABG pO2 190.4 H ABG HCO3 20.3 ABG O2 Saturation 99.1 H ABG Base Excess -7.1 FiO2 60% Lactic Acid 1.9 Ammonia 14.8 05/05/17 18:50 Carbonic Acid 1.14 HCO3/H2CO3 Ratio 17:1 ABG pH 7.35 ABG pCO2 38.0 ABG pO2 193.9 H ABG HCO3 20.4 ABG O2 Saturation 99.3 H ABG Base Excess -4.7 FiO2 50% Lactic Acid Ammonia 05/05/17 05/05/17 17:15 17:15 Creatine Kinase 123 CK-MB (CK-2) 3.17 Troponin I 0.312 Impressions: Chest X-Ray 05/05/17 12:43 IMPRESSION: NO ACUTE RADIOGRAPHIC FINDING IN THE CHEST. Head CT 05/05/17 12:43 IMPRESSION: MILD CHRONIC CHANGES OF ATROPHY AND MICROVASCULAR ISCHEMIA. NO ACUTE PROCESS. KUB X-Ray 05/05/17 13:59 IMPRESSION: NG tube appears to be in satisfactory position. Mild small-bowel distention as described. Assessment & Plan - Diagnosis (1) Septic shock Is this a current diagnosis for this admission?: YesPlan: Patient is presently not requiring vasopressor, he will empirically be treated with intravenous antibiotic, vancomycin, Zosyn and clindamycin (2) Metabolic acidosis with increased anion gap and accumulation of organic acids Is this a current diagnosis for this admission?: Yes (3) Elevated troponin Is this a current diagnosis for this admission?: YesPlan: Elevated troponin most likely related to sepsis
[2017-05-05 21:54] LABS: ANION GAP 7 (5-19); BLOOD UREA NITROGEN 20 mg/dL (7-20); CALCIUM 7.2 mg/dL (8.4-10.2); CHLORIDE 115 mmol/L (98-107); CREATININE RESULT 1.12 mg/dL (0.52-1.25); GLUCOSE 142 mg/dL (75-110); POTASSIUM 3.9 mmol/L (3.6-5.0); SODIUM 140.8 mmol/L (137-145)
[2017-05-05 22:06] LABS: CARBON DIOXIDE 19 mmol/L (22-30)
[2017-05-05] MEDS: CLINDAMYCIN 600 MG/D5W RTU 600 MG/50 ML RTUPB IV SCH (22:53)
[2017-05-05] MEDS: HEPARIN SOD (PORCINE) 5,000 UNIT/ML 1 ML SYRINGE SUBCUT SCH (22:54)
[2017-05-06 00:06] LABS: CREATINE KINASE MB 4.65 ng/mL (<4.55)
[2017-05-06 00:08] LABS: TROPONIN I 0.432 ng/mL
[2017-05-06] MEDS: PIPERACILLIN SODIUM/TAZOBACTAM 3.375 GM in NORMAL SALINE 100 ML IV SCH ×5 (00:20→23:26)
[2017-05-06] MEDS: PROPOFOL 100 ML IV PRN ×4 (01:40→21:15)
[2017-05-06 04:53] LABS: ARTERIAL BLOOD BASE EXCESS -5.1 mmol/L; ARTERIAL BLOOD O2 SATURATION 97.2 % (94-98)
[2017-05-06 05:02] LABS: PROTHROMBIN TIME 15.5 SEC (11.4-15.4)
[2017-05-06 05:03] LABS: PARTIAL THROMBOPLASTIN TIME 36.1 SEC (23.5-35.8)
[2017-05-06 05:07] LABS: ALANINE AMINOTRANSFERASE 23 U/L (21-72); ALBUMIN 2.4 g/dL (3.5-5.0); ALKALINE PHOSPHATASE 75 U/L (38-126); AMYLASE 380 U/L (30-110); ANION GAP 9 (5-19); ASPARTATE AMINO TRANSFERASE 23 U/L (17-59); BILIRUBIN,DIRECT 0.3 mg/dL (0.0-0.4); BILIRUBIN,TOTAL 0.3 mg/dL (0.2-1.3); BLOOD UREA NITROGEN 20 mg/dL (7-20); CALCIUM 7.5 mg/dL (8.4-10.2); CARBON DIOXIDE 18 mmol/L (22-30); CHLORIDE 116 mmol/L (98-107); CREATINE KINASE 207 U/L (55-170); CREATININE RESULT 1.33 mg/dL (0.52-1.25); GLUCOSE 114 mg/dL (75-110); LIPASE 64.6 U/L (23-300); POTASSIUM 4.1 mmol/L (3.6-5.0); SODIUM 142.7 mmol/L (137-145); TOTAL PROTEIN 5.3 g/dL (6.3-8.2)
[2017-05-06 05:18] LABS: CREATINE KINASE MB 4.97 ng/mL (<4.55); TROPONIN I 0.375 ng/mL
[2017-05-06] MEDS: HEPARIN SOD (PORCINE) 5,000 UNIT/ML 1 ML SYRINGE SUBCUT SCH ×3 (05:21→21:27)
[2017-05-06] MEDS: LANSOPRAZOLE 30 MG TAB.RAP.DR PO SCH ×2 (05:21→17:01)
[2017-05-06 05:59] LABS: ABSOLUTE LYMPHOCYTES (AUTO) 0.6 10^3/uL (0.5-4.7); ABSOLUTE MONOCYTES (AUTO) 1.2 10^3/uL (0.1-1.4); ABSOLUTE NEUT (AUTO) 8.3 10^3/uL (1.7-8.2); BASOPHILS % (AUTO) 0.1 % (0-2); HEMATOCRIT 28.1 % (37.9-51.0); HGB HCT DIFFERENCE -1.1; LYMPHOCYTES % (AUTO) 6.3 % (13-45); MEAN CORPUSCULAR HEMOGLOBIN 27.1 pg (27.0-33.4); MONOCYTES % (AUTO) 11.4 % (3-13); RED BLOOD COUNT 3.33 10^6/uL (4.35-5.55); RED CELL DISTRIBUTION WIDTH 17.5 % (11.5-14.0); SEGMENTED NEUTROPHILS % (AUTO) 82.2 % (42-78); WHITE BLOOD COUNT 10.1 10^3/uL (4.0-10.5)
[2017-05-06] MEDS: CLINDAMYCIN 600 MG/D5W RTU 600 MG/50 ML RTUPB IV SCH ×3 (06:01→21:26)
[2017-05-06 06:14] LABS: MEAN CORPUSCULAR VOLUME 85 fl (80-97)
--- NOTE | 2017-05-06 07:42 | RADIOLOGY REPORT (SQ) ---
EXAM DESCRIPTION: CHEST SINGLE VIEW COMPLETED DATE/TIME: 05/06/2017 7:08 am REASON FOR STUDY: respiratory failure COMPARISON: 05/05/2017. EXAM PARAMETERS: NUMBER OF VIEWS: One view. TECHNIQUE: Single frontal radiographic view of the chest acquired. RADIATION DOSE: NA LIMITATIONS: None. FINDINGS: LUNGS AND PLEURA: Small bibasilar opacity-layered effusion. MEDIASTINUM AND HILAR STRUCTURES: No masses. Contour normal. HEART AND VASCULAR STRUCTURES: Borderline cardiac silhouette size. BONES: No acute findings. HARDWARE: Left cardiac stimulation device and leads. Adequate appearing endotracheal tube. Likely a dequate NG tube obscured distally. OTHER: No other significant finding. IMPRESSION: No significant interval change. TECHNICAL DOCUMENTATION: JOB ID: [id number]
[2017-05-06] MEDS: NORMAL SALINE 1000 ML 1,000 ML IV PRN (10:25)
--- NOTE | 2017-05-06 10:49 | RADIOLOGY REPORT (SQ) ---
EXAM DESCRIPTION: FEMUR LEFT COMPLETED DATE/TIME: 05/06/2017 10:02 am REASON FOR STUDY: r/o osteo COMPARISON: None NUMBER OF VIEWS: AP and lateral views TECHNIQUE: Two radiographic images acquired of the left femur to include hip and knee in at least on e projection. LIMITATIONS: None. FINDINGS: MINERALIZATION: Normal. BONES: Patient is status post amputation at the level of the mid femur. There is no plain film evide nce for bony involvement by osteomyelitis. SOFT TISSUES: Postsurgical changes are identified. OTHER: No other significant finding. IMPRESSION: Status post amputation at the level of the mid femur. There is no plain film evidence f or bony involvement by osteomyelitis. Other findings as noted above TECHNICAL DOCUMENTATION: JOB ID: [id number] [employer]- All Rights Reserved
--- NOTE | 2017-05-06 12:37 | OPERATIVE REPORT E ---
Operative Report NAME: MOHAN BALLESTEROS : 1940 AGE: 76Y DATE OF SURGERY: 05/06/2017 ROOM: 609 PREOPERATIVE DIAGNOSIS: Ulcer along the left anterior thigh with some greenish discharge. POSTOPERATIVE DIAGNOSIS: Ulcer along the left anterior thigh with some greenish discharge with partially necrotic skin. OPERATION: Sharp debridement of left anterior thigh ulcer measuring 7 cm wide by 3 cm long, an area of cavitation that appears to be quite dry about 1 x 2 cm on the lateral aspect of the old wound. SURGEON: RAO ÁLVAREZ M.D. ANESTHESIA: TISSUE REMOVED OR ALTERED: PROCEDURE: Patient has been intubated and was given extra propofol. The anterior thigh just above the AKA amputation stump which appears to be healing well, was then prepped and draped in the usual sterile fashion. With use of 11 blade, the necrotic skin was partially debrided down to the subcutaneous area. Most of the skin was incised, however, no obvious evidence of collection underneath. The skin debrided roughly measured about 6 cm x 4 cm. Patient tolerated procedure well. DICTATING PHYSICIAN: RAO ÁLVAREZ M.D. [id number] PHY#: [id number] ID: [id number] JOB#: [id number] ACCT: [id number] cc:RAO ÁLVAREZ M.D. >
--- NOTE | 2017-05-06 14:08 | PDOC CONSULTATION ---
Consultation Consult Date: 05/05/17 Attending physician:: CAYETANO RAY Consult reason:: acute resp failure/sepsis History of Present Illness Admission Date/PCP: 05/05/17 14:45 History of Present Illness: MOHAN BALLESTEROS JR is a 76 year old male found unresponsive hypoxic,unarousable; 2 weels s/p discharged from hospital out of town wher he had complicated course DVT,infection leading to a L bka.Since his discharged his course was unenevenyyful per family. smoking hx in distant past;large amount passive smoke as a child and adult Past Medical History Cardiac Medical History: Reports: Myocardial Infarction, Hyperlipidema, Hypertension Past Surgical History Past Surgical History: Reports: Vascular Surgery Social History Information Source: Relative, [facility] Records Smoking Status: Former Smoker Passive smoke exposure as: Both Family History Family History: Reviewed & Not Pertinent Parental Family History Reviewed: No Children Family History Reviewed: No Sibling(s) Family History Reviewed.: No Medication/Allergy Home Medications: Acetaminophen [Tylenol 325 mg Tablet] 650 mg PO Q4HP PRN 05/05/17 Apixaban [Eliquis 5 mg Tablet] 5 mg PO Q12 05/05/17 Aspirin [Aspirin 81 mg Chewable Tablet] 81 mg PO DAILY 05/05/17 Atorvastatin Calcium [Lipitor 40 mg Tablet] 40 mg PO DAILY 05/05/17 Carvedilol [Coreg 3.125 mg Tablet] 3.125 mg PO Q12 05/05/17 Clopidogrel Bisulfate [Plavix 75 mg Tablet] 75 mg PO DAILY 05/05/17 Furosemide [Lasix] 40 mg PO DAILY 05/05/17 Polyethylene Glycol 3350 [Miralax Powder 17 gm/Packet] 17 gm PO DAILY 05/05/17 Potassium Chloride [K-Tab ER] 20 meq PO DAILY 05/05/17 Tamsulosin HCl [Flomax 0.4 mg Cap.sr] 0.4 mg PO DAILY 05/05/17 Tramadol HCl [Ultram 50 mg Tablet] 50 mg PO Q4HP PRN 05/05/17 Allergies/Adverse Reactions: No Known Allergies Allergy (Verified 02/07/17 12:26) Review of Systems ROS unobtainable: Due to endotracheal tube, Due to mental status Physical Exam Vital Signs: Temp Pulse Resp BP Pulse Ox 126 H 16 116/82 100 05/05/17 14:49 05/05/17 14:49 05/05/17 14:49 05/05/17 16:51 General appearance: PRESENT: no acute distress, disheveled, thin, well-developed Head exam: PRESENT: atraumatic, normocephalic Eye exam: PRESENT: conjunctiva pale Mouth exam: PRESENT: dry mucosa, neck supple, tongue midline, other - ET tube d# 1 Neck exam: ABSENT: carotid bruit, JVD, lymphadenopathy, thyromegaly Respiratory exam: PRESENT: decreased breath sounds, prolonged expiratory phas, rhonchi, symmetrical, unlabored Cardiovascular exam: PRESENT: RRR, +S1, +S2 Pulses: PRESENT: normal radial pulses GI/Abdominal exam: PRESENT: normal bowel sounds, soft. ABSENT: distended, guarding, mass, organolmegaly, rebound, tenderness Rectal exam: PRESENT: deferred Gentrourinary exam: PRESENT: indwelling catheter Extremities exam: PRESENT: other - Lbka tessa in place 3x5 cm rectangle pkin area purulent with green discharged and eschar Skin exam: PRESENT: warm Results Laboratory Results: 05/05/17 05/05/17 05/05/17 15:30 16:40 17:15 Carbonic Acid 1.50 H HCO3/H2CO3 Ratio 13:1 ABG pH 7.23 L ABG pCO2 49.8 H ABG pO2 190.4 H ABG HCO3 20.3 ABG O2 Saturation 99.1 H ABG Base Excess -7.1 FiO2 60% Lactic Acid 1.9 Ammonia 14.8 05/05/17 05/05/17 17:15 17:15 Creatine Kinase 123 CK-MB (CK-2) 3.17 Troponin I 0.312 Impressions: Chest X-Ray 05/05/17 12:43 IMPRESSION: NO ACUTE RADIOGRAPHIC FINDING IN THE CHEST. Head CT 05/05/17 12:43 IMPRESSION: MILD CHRONIC CHANGES OF ATROPHY AND MICROVASCULAR ISCHEMIA. NO ACUTE PROCESS. KUB X-Ray 05/05/17 13:59 IMPRESSION: NG tube appears to be in satisfactory position. Mild small-bowel distention as described. Assessment & Plan - Diagnosis (1) Lactic acidosis Is this a current diagnosis for this admission?: YesPlan: poor perfusion and infection (2) Septic shock Is this a current diagnosis for this admission?: YesPlan: volume replacement ok for now (3) Unresponsive episode Is this a current diagnosis for this admission?: Yes - Time Critical Time spent with patient: 35 or more minutes - 55 min
--- NOTE | 2017-05-06 14:19 | PDOC PROGRESS REPORT ---
Subjective Progress Note for:: 05/06/17 Subjective:: intubated and sedated Physical Exam Vital Signs: Temp Pulse Resp BP Pulse Ox 98.4 F 62 12 120/76 100 05/06/17 08:00 05/06/17 08:00 05/06/17 08:00 05/06/17 08:00 05/06/17 08:00 Intake & Output 05/05/17 05/06/17 05/07/17 06:59 06:59 06:59 Intake Total 3430 Output Total 1290 100 Balance 2140 -100 Weight 66.7 kg General appearance: PRESENT: no acute distress, disheveled, thin, well-developed Head exam: PRESENT: atraumatic, normocephalic Eye exam: PRESENT: conjunctiva pale Mouth exam: PRESENT: dry mucosa, neck supple, tongue midline, other - ET tube d# 2 Neck exam: ABSENT: carotid bruit, JVD, lymphadenopathy, thyromegaly Respiratory exam: PRESENT: decreased breath sounds, prolonged expiratory phas, rhonchi, symmetrical, unlabored Cardiovascular exam: PRESENT: RRR, +S1, +S2 Pulses: PRESENT: normal radial pulses GI/Abdominal exam: PRESENT: normal bowel sounds, soft. ABSENT: distended, guarding, mass, organolmegaly, rebound, tenderness Rectal exam: PRESENT: deferred Gentrourinary exam: PRESENT: urethral discharge Extremities exam: PRESENT: other - leg wound Skin exam: PRESENT: warm Results Laboratory Results: 05/06/17 05:40 05/06/17 04:35 05/05/17 05/05/17 05/05/17 15:30 16:40 17:15 WBC RBC Hgb Hct MCV MCH MCHC RDW Plt Count Seg Neutrophils % Lymphocytes % Monocytes % Eosinophils % Basophils % Absolute Neutrophils Absolute Lymphocytes Absolute Monocytes Absolute Eosinophils Absolute Basophils Carbonic Acid 1.50 H HCO3/H2CO3 Ratio 13:1 ABG pH 7.23 L ABG pCO2 49.8 H ABG pO2 190.4 H ABG HCO3 20.3 ABG O2 Saturation 99.1 H ABG Base Excess -7.1 FiO2 60% Sodium Potassium Chloride Carbon Dioxide Anion Gap BUN Creatinine Est GFR ( Amer) Est GFR (Non-Af Amer) Glucose Lactic Acid 1.9 Calcium Total Bilirubin AST ALT Alkaline Phosphatase Ammonia 14.8 Total Protein Albumin Amylase Lipase 0805/05/17 05/06/17 18:50 21:20 04:30 WBC RBC Hgb Hct MCV MCH MCHC RDW Plt Count Seg Neutrophils % Lymphocytes % Monocytes % Eosinophils % Basophils % Absolute Neutrophils Absolute Lymphocytes Absolute Monocytes Absolute Eosinophils Absolute Basophils Carbonic Acid 1.14 1.02 L HCO3/H2CO3 Ratio 17:1 19:1 ABG pH 7.35 7.38 ABG pCO2 38.0 33.8 L ABG pO2 193.9 H 95.8 ABG HCO3 20.4 19.4 L ABG O2 Saturation 99.3 H 97.2 ABG Base Excess -4.7 -5.1 FiO2 50% 21% Sodium 140.8 Potassium 3.9 Chloride 115 H Carbon Dioxide 19 L D Anion Gap 7 BUN 20 Creatinine 1.12 Est GFR ( Amer) > 60 Est GFR (Non-Af Amer) > 60 Glucose 142 H Lactic Acid Calcium 7.2 L Total Bilirubin AST ALT Alkaline Phosphatase Ammonia Total Protein Albumin Amylase Lipase 05/06/17 05/06/17 05/06/17 04:35 04:35 05:40 WBC Cancelled 10.1 RBC Cancelled 3.33 L Hgb Cancelled 9.0 L D Hct Cancelled 28.1 L MCV Cancelled 85 D MCH Cancelled 27.1 MCHC Cancelled 32.0 RDW Cancelled 17.5 H Plt Count Cancelled 135 L Seg Neutrophils % Cancelled 82.2 H Lymphocytes % Cancelled 6.3 L Monocytes % Cancelled 11.4 Eosinophils % Cancelled 0.0 Basophils % Cancelled 0.1 Absolute Neutrophils Cancelled 8.3 H Absolute Lymphocytes Cancelled 0.6 Absolute Monocytes Cancelled 1.2 Absolute Eosinophils Cancelled 0.0 Absolute Basophils Cancelled 0.0 Carbonic Acid HCO3/H2CO3 Ratio ABG pH ABG pCO2 ABG pO2 ABG HCO3 ABG O2 Saturation ABG Base Excess FiO2 Sodium 142.7 Potassium 4.1 Chloride 116 H Carbon Dioxide 18 L Anion Gap 9 BUN 20 Creatinine 1.33 H Est GFR ( Amer) > 60 Est GFR (Non-Af Amer) 52 L Glucose 114 H Lactic Acid Calcium 7.5 L Total Bilirubin 0.3 AST 23 ALT 23 Alkaline Phosphatase 75 Ammonia Total Protein 5.3 L Albumin 2.4 L Amylase 380 H Lipase 64.6 08/11/17 08/11/17 08/11/17 17:15 17:15 23:30 Creatine Kinase 123 160 CK-MB (CK-2) 3.17 Troponin I 0.312 05/05/17 05/06/17 05/06/17 23:30 04:35 04:35 Creatine Kinase 207 H CK-MB (CK-2) 4.65 H 4.97 H Troponin I 0.432 0.375 Impressions: Head CT 05/05/17 12:43 IMPRESSION: MILD CHRONIC CHANGES OF ATROPHY AND MICROVASCULAR ISCHEMIA. NO ACUTE PROCESS. KUB X-Ray 05/05/17 13:59 IMPRESSION: NG tube appears to be in satisfactory position. Mild small-bowel distention as described. Chest X-Ray 05/06/17 06:00 IMPRESSION: No significant interval change. Assessment & Plan - Diagnosis (1) Lactic acidosis Is this a current diagnosis for this admission?: Yes (2) Septic shock Is this a current diagnosis for this admission?: Yes (3) Unresponsive episode Is this a current diagnosis for this admission?: Yes (4) Leg abrasion, infected Qualifiers: Laterality: left Is this a current diagnosis for this admission?: YesPlan: area of recent skin graft?surgery to debride - Time Critical Time spent with patient: 35 or more minutes - 45 min
--- NOTE | 2017-05-06 16:34 | EKG REPORT ---
SEVERITY:- ABNORMAL ECG - SINUS TACHYCARDIA ATRIAL PREMATURE COMPLEX LOW VOLTAGE IN FRONTAL LEADS CONSIDER ANTEROSEPTAL INFARCT NONSPECIFIC T ABNORMALITIES, LATERAL LEADS VPC : Confirmed by: Wilder Rizzo 06-May-2017 16:33:46
--- NOTE | 2017-05-06 16:34 | PDOC PROGRESS REPORT ---
Subjective Progress Note for:: 05/06/17 Subjective:: Patient remained sedated and intubated Physical Exam Vital Signs: Temp Pulse Resp BP Pulse Ox 99.0 F 69 14 144/88 H 100 05/06/17 16:00 05/06/17 16:00 05/06/17 16:00 05/06/17 16:00 05/06/17 16:00 Intake & Output 05/05/17 05/06/17 05/07/17 06:59 06:59 06:59 Intake Total 3430 Output Total 1290 360 Balance 2140 -360 Weight 66.7 kg Eye exam: PRESENT: PERRLA Respiratory exam: PRESENT: clear to auscultation srikanth Cardiovascular exam: PRESENT: +S1 GI/Abdominal exam: PRESENT: soft Neurological exam: PRESENT: other - sedated Results Laboratory Results: 05/06/17 05:40 05/06/17 04:35 05/05/17 05/05/17 05/05/17 16:40 17:15 18:50 WBC RBC Hgb Hct MCV MCH MCHC RDW Plt Count Seg Neutrophils % Lymphocytes % Monocytes % Eosinophils % Basophils % Absolute Neutrophils Absolute Lymphocytes Absolute Monocytes Absolute Eosinophils Absolute Basophils Carbonic Acid 1.50 H 1.14 HCO3/H2CO3 Ratio 13:1 17:1 ABG pH 7.23 L 7.35 ABG pCO2 49.8 H 38.0 ABG pO2 190.4 H 193.9 H ABG HCO3 20.3 20.4 ABG O2 Saturation 99.1 H 99.3 H ABG Base Excess -7.1 -4.7 FiO2 60% 50% Sodium Potassium Chloride Carbon Dioxide Anion Gap BUN Creatinine Est GFR ( Amer) Est GFR (Non-Af Amer) Glucose Lactic Acid 1.9 Calcium Total Bilirubin AST ALT Alkaline Phosphatase Total Protein Albumin Amylase Lipase 05/05/17 05/06/17 05/06/17 21:20 04:30 04:35 WBC RBC Hgb Hct MCV MCH MCHC RDW Plt Count Seg Neutrophils % Lymphocytes % Monocytes % Eosinophils % Basophils % Absolute Neutrophils Absolute Lymphocytes Absolute Monocytes Absolute Eosinophils Absolute Basophils Carbonic Acid 1.02 L HCO3/H2CO3 Ratio 19:1 ABG pH 7.38 ABG pCO2 33.8 L ABG pO2 95.8 ABG HCO3 19.4 L ABG O2 Saturation 97.2 ABG Base Excess -5.1 FiO2 21% Sodium 140.8 142.7 Potassium 3.9 4.1 Chloride 115 H 116 H Carbon Dioxide 19 L D 18 L Anion Gap 7 9 BUN 20 20 Creatinine 1.12 1.33 H Est GFR ( Amer) > 60 > 60 Est GFR (Non-Af Amer) > 60 52 L Glucose 142 H 114 H Lactic Acid Calcium 7.2 L 7.5 L Total Bilirubin 0.3 AST 23 ALT 23 Alkaline Phosphatase 75 Total Protein 5.3 L Albumin 2.4 L Amylase 380 H Lipase 64.6 05/06/17 05/06/17 04:35 05:40 WBC Cancelled 10.1 RBC Cancelled 3.33 L Hgb Cancelled 9.0 L D Hct Cancelled 28.1 L MCV Cancelled 85 D MCH Cancelled 27.1 MCHC Cancelled 32.0 RDW Cancelled 17.5 H Plt Count Cancelled 135 L Seg Neutrophils % Cancelled 82.2 H Lymphocytes % Cancelled 6.3 L Monocytes % Cancelled 11.4 Eosinophils % Cancelled 0.0 Basophils % Cancelled 0.1 Absolute Neutrophils Cancelled 8.3 H Absolute Lymphocytes Cancelled 0.6 Absolute Monocytes Cancelled 1.2 Absolute Eosinophils Cancelled 0.0 Absolute Basophils Cancelled 0.0 Carbonic Acid HCO3/H2CO3 Ratio ABG pH ABG pCO2 ABG pO2 ABG HCO3 ABG O2 Saturation ABG Base Excess FiO2 Sodium Potassium Chloride Carbon Dioxide Anion Gap BUN Creatinine Est GFR ( Amer) Est GFR (Non-Af Amer) Glucose Lactic Acid Calcium Total Bilirubin AST ALT Alkaline Phosphatase Total Protein Albumin Amylase Lipase 05/05/17 05/05/17 05/05/17 17:15 17:15 23:30 Creatine Kinase 123 160 CK-MB (CK-2) 3.17 Troponin I 0.312 05/05/17 05/06/17 05/06/17 23:30 04:35 04:35 Creatine Kinase 207 H CK-MB (CK-2) 4.65 H 4.97 H Troponin I 0.432 0.375 Impressions: Head CT 05/05/17 12:43 IMPRESSION: MILD CHRONIC CHANGES OF ATROPHY AND MICROVASCULAR ISCHEMIA. NO ACUTE PROCESS. KUB X-Ray 05/05/17 13:59 IMPRESSION: NG tube appears to be in satisfactory position. Mild small-bowel distention as described. Chest X-Ray 05/06/17 06:00 IMPRESSION: No significant interval change. 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 There is no plain film evidence for bony involvement by osteomyelitis. Other findings as noted above Assessment & Plan - Diagnosis (1) Septic shock Is this a current diagnosis for this admission?: Yes (2) Metabolic acidosis with increased anion gap and accumulation of organic acids Is this a current diagnosis for this admission?: Yes (3) Elevated troponin Is this a current diagnosis for this admission?: Yes - Plan Summary Plan Summary: Patient is still acidotic metabolically, continue vent support, continue IV antibiotic, start nutritional support
[2017-05-06] MEDS: VANCOMYCIN HCL 1,000 MG in DEXTROSE 5%-WATER 250 ML IV SCH (17:00)
[2017-05-07] MEDS: NORMAL SALINE 1000 ML 1,000 ML IV PRN ×2 (00:05→12:13)
[2017-05-07] MEDS: PROPOFOL 100 ML IV PRN ×3 (03:18→15:35)
[2017-05-07] MEDS: CLINDAMYCIN 600 MG/D5W RTU 600 MG/50 ML RTUPB IV SCH ×3 (05:00→21:23)
[2017-05-07] MEDS: HEPARIN SOD (PORCINE) 5,000 UNIT/ML 1 ML SYRINGE SUBCUT SCH ×3 (05:01→21:23)
[2017-05-07] MEDS: LANSOPRAZOLE 30 MG TAB.RAP.DR PO SCH ×2 (05:04→16:18)
[2017-05-07 05:42] LABS: ABSOLUTE LYMPHOCYTES (AUTO) 0.8 10^3/uL (0.5-4.7); ABSOLUTE MONOCYTES (AUTO) 0.9 10^3/uL (0.1-1.4); ABSOLUTE NEUT (AUTO) 6.5 10^3/uL (1.7-8.2); ARTERIAL BLOOD O2 SATURATION 97.1 % (94-98); BASOPHILS % (AUTO) 0.4 % (0-2); EOSINOPHILS % (AUTO) 0.3 % (0-6); HEMATOCRIT 26.2 % (37.9-51.0); HEMOGLOBIN 8.3 g/dL (13.5-17.0); HGB HCT DIFFERENCE -1.3; MEAN CORPUSCULAR HEMOGLOBIN 26.7 pg (27.0-33.4); MEAN CORPUSCULAR HGB CONC 31.8 g/dL (32.0-36.0); MEAN CORPUSCULAR VOLUME 84 fl (80-97); MONOCYTES % (AUTO) 11.2 % (3-13); RED BLOOD COUNT 3.11 10^6/uL (4.35-5.55); RED CELL DISTRIBUTION WIDTH 18.3 % (11.5-14.0); SEGMENTED NEUTROPHILS % (AUTO) 78.1 % (42-78); WHITE BLOOD COUNT 8.3 10^3/uL (4.0-10.5)
[2017-05-07 05:52] LABS: PROTHROMBIN TIME 15.3 SEC (11.4-15.4)
[2017-05-07 05:53] LABS: PARTIAL THROMBOPLASTIN TIME 37.1 SEC (23.5-35.8)
[2017-05-07 05:58] LABS: ALANINE AMINOTRANSFERASE 26 U/L (21-72); ALBUMIN 2.2 g/dL (3.5-5.0); ALKALINE PHOSPHATASE 65 U/L (38-126); AMYLASE 129 U/L (30-110); ANION GAP 8 (5-19); ASPARTATE AMINO TRANSFERASE 25 U/L (17-59); BILIRUBIN,DIRECT 0.3 mg/dL (0.0-0.4); BILIRUBIN,TOTAL 0.3 mg/dL (0.2-1.3); BLOOD UREA NITROGEN 14 mg/dL (7-20); CALCIUM 7.9 mg/dL (8.4-10.2); CARBON DIOXIDE 19 mmol/L (22-30); CHLORIDE 119 mmol/L (98-107); CREATININE RESULT 1.17 mg/dL (0.52-1.25); GLUCOSE 81 mg/dL (75-110); LIPASE 46.7 U/L (23-300); POTASSIUM 3.5 mmol/L (3.6-5.0); SODIUM 145.5 mmol/L (137-145); TOTAL PROTEIN 5.1 g/dL (6.3-8.2)
[2017-05-07] MEDS: PIPERACILLIN SODIUM/TAZOBACTAM 3.375 GM in NORMAL SALINE 100 ML IV SCH ×3 (06:05→17:17)
--- NOTE | 2017-05-07 08:40 | RADIOLOGY REPORT (SQ) ---
EXAM DESCRIPTION: CHEST SINGLE VIEW COMPLETED DATE/TIME: 05/07/2017 6:37 am REASON FOR STUDY: respiratory failure COMPARISON: 05/06/2017 EXAM PARAMETERS: NUMBER OF VIEWS: One view. TECHNIQUE: Single frontal radiographic view of the chest acquired. RADIATION DOSE: NA LIMITATIONS: None. FINDINGS: LUNGS AND PLEURA: The previously described bibasilar densities appear improved. MEDIASTINUM AND HILAR STRUCTURES: No masses. Contour normal. HEART AND VASCULAR STRUCTURES: The configuration of the heart and mediastinal structures is unchanged . BONES: No acute findings. HARDWARE: AICD device is unchanged in position. Endotracheal tube and central line are unchanged in position. OTHER: No other significant finding. IMPRESSION: Interval improvement in the bibasilar densities as noted above TECHNICAL DOCUMENTATION: JOB ID: [id number]
--- NOTE | 2017-05-07 12:04 | PDOC PROGRESS REPORT ---
Subjective Progress Note for:: 05/14/17 Subjective:: Patient sedated and intubated Physical Exam Vital Signs: Temp Pulse Resp BP Pulse Ox 98.2 F 64 23 H 136/79 H 98 05/07/17 08:00 05/07/17 10:00 05/07/17 11:17 05/07/17 11:17 05/07/17 11:23 Intake & Output 05/06/17 05/07/17 05/08/17 06:59 06:59 06:59 Intake Total 3430 2449 Output Total 1290 1560 225 Balance 2140 889 -225 Weight 66.7 kg 68.4 kg Eye exam: PRESENT: PERRLA Respiratory exam: PRESENT: clear to auscultation srikanth Cardiovascular exam: PRESENT: +S1, +S2 GI/Abdominal exam: PRESENT: soft Skin exam: PRESENT: other Results Laboratory Results: 05/07/17 05:25 05/07/17 05:25 05/07/17 05/07/17 05/07/17 05:25 05:25 05:25 WBC 8.3 RBC 3.11 L Hgb 8.3 L Hct 26.2 L MCV 84 MCH 26.7 L MCHC 31.8 L RDW 18.3 H Plt Count 127 L Seg Neutrophils % 78.1 H Lymphocytes % 10.0 L Monocytes % 11.2 Eosinophils % 0.3 Basophils % 0.4 Absolute Neutrophils 6.5 Absolute Lymphocytes 0.8 Absolute Monocytes 0.9 Absolute Eosinophils 0.0 Absolute Basophils 0.0 Carbonic Acid 0.97 L HCO3/H2CO3 Ratio 19:1 ABG pH 7.39 ABG pCO2 32.3 L ABG pO2 92.7 ABG HCO3 19.2 L ABG O2 Saturation 97.1 ABG Base Excess -5.0 FiO2 21% Sodium 145.5 H Potassium 3.5 L Chloride 119 H Carbon Dioxide 19 L Anion Gap 8 BUN 14 Creatinine 1.17 Est GFR ( Amer) > 60 Est GFR (Non-Af Amer) > 60 Glucose 81 Calcium 7.9 L Magnesium 2.0 Total Bilirubin 0.3 AST 25 ALT 26 Alkaline Phosphatase 65 Total Protein 5.1 L Albumin 2.2 L Amylase 129 H Lipase 46.7 05/05/17 16:35 Tracheal Aspirate Gram Stain - Final 05/05/17 16:35 Tracheal Aspirate Sputum Culture - Final NORMAL SANDRITA 05/05/17 05/05/17 05/05/17 17:15 17:15 23:30 Creatine Kinase 123 160 CK-MB (CK-2) 3.17 Troponin I 0.312 05/05/17 05/06/17 05/06/17 23:30 04:35 04:35 Creatine Kinase 207 H CK-MB (CK-2) 4.65 H 4.97 H Troponin I 0.432 0.375 Impressions: Head CT 05/05/17 12:43 IMPRESSION: MILD CHRONIC CHANGES OF ATROPHY AND MICROVASCULAR ISCHEMIA. NO ACUTE PROCESS. KUB X-Ray 05/05/17 13:59 IMPRESSION: NG tube appears to be in satisfactory position. Mild small-bowel distention as described. 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 There is no plain film evidence for bony involvement by osteomyelitis. Other findings as noted above Chest X-Ray 05/07/17 06:00 IMPRESSION: Interval improvement in the bibasilar densities as noted above Assessment & Plan - Diagnosis (1) Septic shock Is this a current diagnosis for this admission?: YesPlan: Patient is not requiring any vasopressors (2) Metabolic acidosis with increased anion gap and accumulation of organic acids Is this a current diagnosis for this admission?: Yes (3) Elevated troponin Is this a current diagnosis for this admission?: Yes (4) Pseudomonal sepsis Is this a current diagnosis for this admission?: Yes - Plan Summary Plan Summary: start tube feeds today with Jevity
[2017-05-07] MEDS: POTASSIUM CHLORIDE 20 MEQ/50 ML RTU IV SCH ×2 (12:58→14:26)
[2017-05-07] MEDS: VANCOMYCIN HCL 1,250 MG in DEXTROSE 5%-WATER 250 ML IV SCH (15:35)
--- NOTE | 2017-05-07 16:56 | PDOC PROGRESS REPORT ---
Subjective Progress Note for:: 05/07/17 Subjective:: intubated and sedated Physical Exam Vital Signs: Temp Pulse Resp BP Pulse Ox 99.9 F 66 20 133/87 H 97 05/07/17 16:00 05/07/17 16:00 05/07/17 16:00 05/07/17 16:00 05/07/17 16:00 Intake & Output 05/06/17 05/07/17 05/08/17 06:59 06:59 06:59 Intake Total 3430 2449 Output Total 1290 1560 500 Balance 2140 889 -500 Weight 66.7 kg 68.4 kg General appearance: PRESENT: no acute distress, disheveled, well-developed Head exam: PRESENT: atraumatic, normocephalic Eye exam: PRESENT: conjunctiva pale Mouth exam: PRESENT: dry mucosa, neck supple, tongue midline, other - ET tube Neck exam: ABSENT: carotid bruit, JVD, lymphadenopathy, thyromegaly Respiratory exam: PRESENT: decreased breath sounds, prolonged expiratory phas, rhonchi, unlabored Cardiovascular exam: PRESENT: RRR, +S1, +S2 Pulses: PRESENT: normal radial pulses GI/Abdominal exam: PRESENT: diminished bowel sounds, soft. ABSENT: distended, guarding, mass, organolmegaly, rebound, tenderness Rectal exam: PRESENT: deferred Gentrourinary exam: PRESENT: indwelling catheter Musculoskeletal exam: PRESENT: other - L aka Skin exam: PRESENT: other - area skin graft eschar Results Laboratory Results: 05/07/17 05:25 05/07/17 05:25 05/07/17 05/07/17 05/07/17 05:25 05:25 05:25 WBC 8.3 RBC 3.11 L Hgb 8.3 L Hct 26.2 L MCV 84 MCH 26.7 L MCHC 31.8 L RDW 18.3 H Plt Count 127 L Seg Neutrophils % 78.1 H Lymphocytes % 10.0 L Monocytes % 11.2 Eosinophils % 0.3 Basophils % 0.4 Absolute Neutrophils 6.5 Absolute Lymphocytes 0.8 Absolute Monocytes 0.9 Absolute Eosinophils 0.0 Absolute Basophils 0.0 Carbonic Acid 0.97 L HCO3/H2CO3 Ratio 19:1 ABG pH 7.39 ABG pCO2 32.3 L ABG pO2 92.7 ABG HCO3 19.2 L ABG O2 Saturation 97.1 ABG Base Excess -5.0 FiO2 21% Sodium 145.5 H Potassium 3.5 L Chloride 119 H Carbon Dioxide 19 L Anion Gap 8 BUN 14 Creatinine 1.17 Est GFR ( Amer) > 60 Est GFR (Non-Af Amer) > 60 Glucose 81 Calcium 7.9 L Magnesium 2.0 Total Bilirubin 0.3 AST 25 ALT 26 Alkaline Phosphatase 65 Total Protein 5.1 L Albumin 2.2 L Amylase 129 H Lipase 46.7 05/05/17 16:35 Tracheal Aspirate Gram Stain - Final 05/05/17 16:35 Tracheal Aspirate Sputum Culture - Final NORMAL SANDRITA 05/05/17 05/05/17 05/05/17 17:15 17:15 23:30 Creatine Kinase 123 160 CK-MB (CK-2) 3.17 Troponin I 0.312 05/05/17 05/06/17 05/06/17 23:30 04:35 04:35 Creatine Kinase 207 H CK-MB (CK-2) 4.65 H 4.97 H Troponin I 0.432 0.375 Impressions: Head CT 05/05/17 12:43 IMPRESSION: MILD CHRONIC CHANGES OF ATROPHY AND MICROVASCULAR ISCHEMIA. NO ACUTE PROCESS. KUB X-Ray 05/05/17 13:59 IMPRESSION: NG tube appears to be in satisfactory position. Mild small-bowel distention as described. 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 There is no plain film evidence for bony involvement by osteomyelitis. Other findings as noted above Chest X-Ray 05/07/17 06:00 IMPRESSION: Interval improvement in the bibasilar densities as noted above Assessment & Plan - Diagnosis (1) Lactic acidosis Is this a current diagnosis for this admission?: Yes (2) Septic shock Is this a current diagnosis for this admission?: Yes (3) Unresponsive episode Is this a current diagnosis for this admission?: Yes (4) Leg abrasion, infected Qualifiers: Laterality: left Is this a current diagnosis for this admission?: Yes
[2017-05-07] MEDS: COLLAGENASE CLOSTRIDIUM HIST. OINT 30 GM TOP SCH (17:17)
[2017-05-07] MEDS ORDERED: ALTEPLASE INJ 2 MG VIAL (CATH CLEARANCE) IV ONE (19:45)
[2017-05-08] MEDS: PROPOFOL 100 ML IV PRN ×3 (00:16→21:26)
[2017-05-08] MEDS: PIPERACILLIN SODIUM/TAZOBACTAM 3.375 GM in NORMAL SALINE 100 ML IV SCH ×4 (00:16→17:44)
[2017-05-08] MEDS: CLINDAMYCIN 600 MG/D5W RTU 600 MG/50 ML RTUPB IV SCH ×3 (05:04→21:25)
[2017-05-08] MEDS: HEPARIN SOD (PORCINE) 5,000 UNIT/ML 1 ML SYRINGE SUBCUT SCH ×3 (05:05→21:27)
[2017-05-08] MEDS: LANSOPRAZOLE 30 MG TAB.RAP.DR PO SCH ×2 (05:05→16:06)
[2017-05-08] MEDS: NORMAL SALINE 1000 ML 1,000 ML IV PRN ×2 (05:05→18:07)
[2017-05-08 05:42] LABS: ABSOLUTE MONOCYTES (AUTO) 0.9 10^3/uL (0.1-1.4); ABSOLUTE NEUT (AUTO) 4.6 10^3/uL (1.7-8.2); BASOPHILS % (AUTO) 0.7 % (0-2); EOSINOPHILS % (AUTO) 0.6 % (0-6); HEMATOCRIT 27.6 % (37.9-51.0); HEMOGLOBIN 8.7 g/dL (13.5-17.0); HGB HCT DIFFERENCE -1.5; LYMPHOCYTES % (AUTO) 15.2 % (13-45); MEAN CORPUSCULAR HEMOGLOBIN 26.9 pg (27.0-33.4); MEAN CORPUSCULAR HGB CONC 31.6 g/dL (32.0-36.0); MEAN CORPUSCULAR VOLUME 85 fl (80-97); MONOCYTES % (AUTO) 14.2 % (3-13); RED BLOOD COUNT 3.25 10^6/uL (4.35-5.55); RED CELL DISTRIBUTION WIDTH 18.3 % (11.5-14.0); SEGMENTED NEUTROPHILS % (AUTO) 69.3 % (42-78); WHITE BLOOD COUNT 6.6 10^3/uL (4.0-10.5)
[2017-05-08 05:49] LABS: ARTERIAL BLOOD BASE EXCESS -5.3 mmol/L; ARTERIAL BLOOD O2 SATURATION 97.3 % (94-98)
[2017-05-08 05:51] LABS: PROTHROMBIN TIME 15.4 SEC (11.4-15.4)
[2017-05-08 06:03] LABS: ALANINE AMINOTRANSFERASE 22 U/L (21-72); ALBUMIN 2.3 g/dL (3.5-5.0); ALKALINE PHOSPHATASE 61 U/L (38-126); AMYLASE 70 U/L (30-110); ANION GAP 6 (5-19); ASPARTATE AMINO TRANSFERASE 21 U/L (17-59); BILIRUBIN,DIRECT 0.5 mg/dL (0.0-0.4); BILIRUBIN,TOTAL 0.5 mg/dL (0.2-1.3); BLOOD UREA NITROGEN 11 mg/dL (7-20); CALCIUM 8.1 mg/dL (8.4-10.2); CARBON DIOXIDE 19 mmol/L (22-30); CHLORIDE 121 mmol/L (98-107); CREATININE RESULT 1.03 mg/dL (0.52-1.25); GLUCOSE 94 mg/dL (75-110); LIPASE 62.9 U/L (23-300); POTASSIUM 3.6 mmol/L (3.6-5.0); SODIUM 146.4 mmol/L (137-145); TOTAL PROTEIN 5.3 g/dL (6.3-8.2)
--- NOTE | 2017-05-08 07:57 | RADIOLOGY REPORT (SQ) ---
EXAM DESCRIPTION: CHEST SINGLE VIEW COMPLETED DATE/TIME: 05/08/2017 6:52 am REASON FOR STUDY: respiratory failure COMPARISON: Chest films 02/02/2017, 05/05/2017, 05/06/2017, 05/07/2017 EXAM PARAMETERS: NUMBER OF VIEWS: One view. TECHNIQUE: Single frontal radiographic view of the chest acquired. RADIATION DOSE: NA LIMITATIONS: None. FINDINGS: Endotracheal tube tip 5 cm above the johnny, unchanged. Nasogastric tube tip and side port in the stomach. Right jugular central venous catheter tip in the superior vena cava. Unchanged left-sided dual lead pacemaker. LUNGS AND PLEURA: Trace fluid or atelectasis in the posterior costophrenic sulci. Lungs are otherwis e well inflated and free of focal infiltrates. No pneumothorax. MEDIASTINUM AND HILAR STRUCTURES: No masses. Contour normal. HEART AND VASCULAR STRUCTURES: Heart normal in size. Normal vasculature. BONES: No acute findings. HARDWARE: As above OTHER: No other significant finding. IMPRESSION: Minimal density in the right and left posterior costophrenic sulci likely atelectasis. Tubes and lines in good positioning. TECHNICAL DOCUMENTATION: JOB ID: [id number]
--- NOTE | 2017-05-08 10:45 | PDOC PROGRESS REPORT ---
Subjective Progress Note for:: 05/08/17 Subjective:: intubated and sedated Physical Exam Vital Signs: Temp Pulse Resp BP Pulse Ox 98.4 F 70 17 101/69 100 05/08/17 07:44 05/08/17 07:44 05/08/17 07:44 05/08/17 07:44 05/08/17 07:44 Intake & Output 05/07/17 05/08/17 05/09/17 06:59 06:59 06:59 Intake Total 2449 2899 Output Total 1560 1110 25 Balance 889 1789 -25 Weight 68.4 kg 69.9 kg General appearance: PRESENT: no acute distress, disheveled, well-developed, well -nourished Head exam: PRESENT: atraumatic, normocephalic Eye exam: PRESENT: conjunctiva pale Mouth exam: PRESENT: dry mucosa, neck supple, tongue midline, other - ET tube in place Neck exam: ABSENT: carotid bruit, JVD, lymphadenopathy, thyromegaly Respiratory exam: PRESENT: decreased breath sounds, prolonged expiratory phas, rales, rhonchi, symmetrical, unlabored Cardiovascular exam: PRESENT: RRR, +S1, +S2 Pulses: PRESENT: normal radial pulses GI/Abdominal exam: PRESENT: normal bowel sounds, soft. ABSENT: distended, guarding, mass, organolmegaly, rebound, tenderness Rectal exam: PRESENT: deferred Gentrourinary exam: PRESENT: indwelling catheter Musculoskeletal exam: PRESENT: normal inspection Skin exam: PRESENT: dry Results Laboratory Results: 05/08/17 05:30 05/08/17 05:30 05/07/17 05/08/17 05/08/17 18:45 05:25 05:30 WBC 6.6 RBC 3.25 L Hgb 8.7 L Hct 27.6 L MCV 85 MCH 26.9 L MCHC 31.6 L RDW 18.3 H Plt Count 116 L Seg Neutrophils % 69.3 Lymphocytes % 15.2 Monocytes % 14.2 H Eosinophils % 0.6 Basophils % 0.7 Absolute Neutrophils 4.6 Absolute Lymphocytes 1.0 Absolute Monocytes 0.9 Absolute Eosinophils 0.0 Absolute Basophils 0.0 Carbonic Acid 0.88 L HCO3/H2CO3 Ratio 20:1 ABG pH 7.42 ABG pCO2 29.3 L ABG pO2 92.9 ABG HCO3 18.4 L ABG O2 Saturation 97.3 ABG Base Excess -5.3 FiO2 21% Sodium Potassium 3.9 Chloride Carbon Dioxide Anion Gap BUN Creatinine Est GFR ( Amer) Est GFR (Non-Af Amer) Glucose Calcium Total Bilirubin AST ALT Alkaline Phosphatase Total Protein Albumin Amylase Lipase 05/08/17 05:30 WBC RBC Hgb Hct MCV MCH MCHC RDW Plt Count Seg Neutrophils % Lymphocytes % Monocytes % Eosinophils % Basophils % Absolute Neutrophils Absolute Lymphocytes Absolute Monocytes Absolute Eosinophils Absolute Basophils Carbonic Acid HCO3/H2CO3 Ratio ABG pH ABG pCO2 ABG pO2 ABG HCO3 ABG O2 Saturation ABG Base Excess FiO2 Sodium 146.4 H Potassium 3.6 Chloride 121 H Carbon Dioxide 19 L Anion Gap 6 BUN 11 Creatinine 1.03 Est GFR ( Amer) > 60 Est GFR (Non-Af Amer) > 60 Glucose 94 Calcium 8.1 L Total Bilirubin 0.5 AST 21 ALT 22 Alkaline Phosphatase 61 Total Protein 5.3 L Albumin 2.3 L Amylase 70 Lipase 62.9 05/05/17 16:35 Tracheal Aspirate Gram Stain - Final 05/05/17 16:35 Tracheal Aspirate Sputum Culture - Final NORMAL SANDRITA 05/05/17 05/05/17 05/05/17 17:15 17:15 23:30 Creatine Kinase 123 160 CK-MB (CK-2) 3.17 Troponin I 0.312 05/05/17 05/06/17 05/06/17 23:30 04:35 04:35 Creatine Kinase 207 H CK-MB (CK-2) 4.65 H 4.97 H Troponin I 0.432 0.375 Impressions: Head CT 05/05/17 12:43 IMPRESSION: MILD CHRONIC CHANGES OF ATROPHY AND MICROVASCULAR ISCHEMIA. NO ACUTE PROCESS. KUB X-Ray 05/05/17 13:59 IMPRESSION: NG tube appears to be in satisfactory position. Mild small-bowel distention as described. 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 There is no plain film evidence for bony involvement by osteomyelitis. Other findings as noted above Chest X-Ray 05/08/17 06:00 IMPRESSION: Minimal density in the right and left posterior costophrenic sulci likely atelectasis. Tubes and lines in good positioning. Assessment & Plan - Diagnosis (1) Lactic acidosis Is this a current diagnosis for this admission?: Yes (2) Septic shock Is this a current diagnosis for this admission?: Yes (3) Unresponsive episode Is this a current diagnosis for this admission?: Yes (4) Leg abrasion, infected Qualifiers: Laterality: left Is this a current diagnosis for this admission?: YesPlan: Surgeon At the bedside debriding wound - Time Critical Time spent with patient: 35 or more minutes
--- NOTE | 2017-05-08 11:47 | Operative Report ---
Operative Report DATE OF SURGERY: 05/08/17 PREOPERATIVE DIAGNOSIS: Open wound left anterior thigh POSTOPERATIVE DIAGNOSIS: Same OPERATION: Excisional debridement of devitalized skin subcutaneous tissue using tenotomy scissors and #10 blade, with approximately 1 g of tissue removed approximately 2 x 3 cm SURGEON: JANETT ART ANESTHESIA: Other - None tissue was insensate TISSUE REMOVED OR ALTERED: See below COMPLICATIONS: None ESTIMATED BLOOD LOSS: Scant INTRAOPERATIVE FINDINGS: See below PROCEDURE: Summary of procedure: 1. Patient left thigh was exposed, prepped with Betadine. This was a rectangular wound superficially, but centrally there was nonviable dermis that was . Therefore using tenotomy scissors and #10 blade, the devitalized subcutaneous tissue and deep dermis was shaved off. Specimens were disposed of. Wound irrigated with chlorhexidine, then dressed with Xeroform and 4 x 4's. 2. Wound care instructions provided.
[2017-05-08] MEDS: COLLAGENASE CLOSTRIDIUM HIST. OINT 30 GM TOP SCH ×2 (12:22→17:44)
[2017-05-08 12:48] LABS: CREATINE KINASE MB 0.65 ng/mL (<4.55); TROPONIN I 0.06 ng/mL
[2017-05-08] MEDS: VANCOMYCIN HCL 1,250 MG in DEXTROSE 5%-WATER 250 ML IV SCH (16:03)
[2017-05-09] MEDS: PIPERACILLIN SODIUM/TAZOBACTAM 3.375 GM in NORMAL SALINE 100 ML IV SCH ×5 (00:18→23:45)
[2017-05-09] MEDS: PROPOFOL 100 ML IV PRN ×4 (00:30→23:45)
[2017-05-09] MEDS: LANSOPRAZOLE 30 MG TAB.RAP.DR PO SCH ×2 (06:01→17:51)
[2017-05-09] MEDS: CLINDAMYCIN 600 MG/D5W RTU 600 MG/50 ML RTUPB IV SCH ×3 (06:01→22:10)
[2017-05-09] MEDS: VANCOMYCIN HCL 750 MG in DEXTROSE 5%-WATER 250 ML IV SCH ×2 (06:03→17:51)
[2017-05-09] MEDS: NORMAL SALINE 1000 ML 1,000 ML IV PRN (06:04)
[2017-05-09] MEDS: HEPARIN SOD (PORCINE) 5,000 UNIT/ML 1 ML SYRINGE SUBCUT SCH ×3 (06:04→22:10)
[2017-05-09 06:36] LABS: ARTERIAL BLOOD BASE EXCESS -5.3 mmol/L; ARTERIAL BLOOD O2 SATURATION 97.3 % (94-98)
[2017-05-09 06:43] LABS: ABSOLUTE EOSINOPHILS # (AUTO) 0.1 10^3/uL (0.0-0.6); ABSOLUTE LYMPHOCYTES (AUTO) 0.7 10^3/uL (0.5-4.7); ABSOLUTE MONOCYTES (AUTO) 0.6 10^3/uL (0.1-1.4); ABSOLUTE NEUT (AUTO) 4.7 10^3/uL (1.7-8.2); BASOPHILS % (AUTO) 0.7 % (0-2); EOSINOPHILS % (AUTO) 2.1 % (0-6); HEMATOCRIT 28.5 % (37.9-51.0); HGB HCT DIFFERENCE -1.5; LYMPHOCYTES % (AUTO) 11.6 % (13-45); MEAN CORPUSCULAR HEMOGLOBIN 26.8 pg (27.0-33.4); MEAN CORPUSCULAR HGB CONC 31.5 g/dL (32.0-36.0); MEAN CORPUSCULAR VOLUME 85 fl (80-97); MONOCYTES % (AUTO) 10.3 % (3-13); RED BLOOD COUNT 3.34 10^6/uL (4.35-5.55); RED CELL DISTRIBUTION WIDTH 18.5 % (11.5-14.0); SEGMENTED NEUTROPHILS % (AUTO) 75.3 % (42-78); WHITE BLOOD COUNT 6.2 10^3/uL (4.0-10.5)
[2017-05-09 06:50] LABS: ALANINE AMINOTRANSFERASE 19 U/L (21-72); ALBUMIN 2.3 g/dL (3.5-5.0); ALKALINE PHOSPHATASE 62 U/L (38-126); ANION GAP 6 (5-19); ASPARTATE AMINO TRANSFERASE 17 U/L (17-59); BILIRUBIN,DIRECT 0.3 mg/dL (0.0-0.4); BILIRUBIN,TOTAL 0.3 mg/dL (0.2-1.3); BLOOD UREA NITROGEN 8 mg/dL (7-20); CALCIUM 8.2 mg/dL (8.4-10.2); CARBON DIOXIDE 20 mmol/L (22-30); CHLORIDE 120 mmol/L (98-107); CREATINE KINASE 197 U/L (55-170); CREATININE RESULT 1.03 mg/dL (0.52-1.25); GLUCOSE 103 mg/dL (75-110); MAGNESIUM 1.8 mg/dL (1.6-2.3); PHOSPHORUS 2.7 mg/dL (2.5-4.5); POTASSIUM 3.7 mmol/L (3.6-5.0); TOTAL PROTEIN 5.4 g/dL (6.3-8.2)
[2017-05-09 07:01] LABS: CREATINE KINASE MB 0.75 ng/mL (<4.55); TROPONIN I 0.056 ng/mL
--- NOTE | 2017-05-09 07:20 | RADIOLOGY REPORT (SQ) ---
EXAM DESCRIPTION: CHEST SINGLE VIEW COMPLETED DATE/TIME: 05/09/2017 6:31 am REASON FOR STUDY: resp failure COMPARISON: 05/09/2017. EXAM PARAMETERS: NUMBER OF VIEWS: One view. TECHNIQUE: Single frontal radiographic view of the chest acquired. RADIATION DOSE: NA LIMITATIONS: None. FINDINGS: LUNGS AND PLEURA: Small obscuration -effusion of bilateral costophrenic angles. MEDIASTINUM AND HILAR STRUCTURES: No masses. Contour normal. HEART AND VASCULAR STRUCTURES: Heart normal in size. Normal vasculature. BONES: No acute findings. HARDWARE: Adequate appearing endotracheal tube, right internal jugular central line, left cardiac sti mulation device, and NG tube obscured distally. OTHER: No other significant finding. IMPRESSION: No significant interval change. TECHNICAL DOCUMENTATION: JOB ID: [id number]
--- NOTE | 2017-05-09 08:59 | PDOC PROGRESS REPORT ---
Subjective Progress Note for:: 05/09/17 Subjective:: Patient remain intubated and ventilator supported. Tolerating enteral tube feeding.Remain on antibiotic therapy including IV Clindamycin, Vancpomycin and Zosyn. No reported fever. Physical Exam Vital Signs: Temp Pulse Resp BP Pulse Ox 97.7 F 65 14 106/72 100 05/09/17 07:40 05/09/17 07:40 05/09/17 07:40 05/09/17 07:40 05/09/17 08:20 Intake & Output 05/08/17 05/09/17 05/10/17 06:59 06:59 06:59 Intake Total 2899 2803 Output Total 1110 1010 35 Balance 1789 1793 -35 Weight 69.9 kg 72 kg Physical Exam: Sedated on IV Propofol. ET and NG tubes in situ. Head exam: PRESENT: atraumatic, normocephalic Eye exam: PRESENT: conjunctiva pink, EOMI, PERRLA. ABSENT: scleral icterus Mouth exam: PRESENT: moist Respiratory exam: PRESENT: clear to auscultation srikanth, decreased breath sounds - at lung bases Cardiovascular exam: PRESENT: RRR - monitor revealed pacemaker rhythm. ABSENT: diastolic murmur, rubs, systolic murmur GI/Abdominal exam: PRESENT: normal bowel sounds, soft. ABSENT: distended, guarding, mass, organolmegaly, rebound, tenderness Extremities exam: PRESENT: left AKA. ABSENT: pedal edema Neurological exam: PRESENT: altered - sedated Skin exam: PRESENT: dry, warm Results Laboratory Results: 05/09/17 06:15 05/09/17 06:15 05/09/17 05/09/17 05/09/17 06:15 06:15 06:15 WBC 6.2 RBC 3.34 L Hgb 9.0 L Hct 28.5 L MCV 85 MCH 26.8 L MCHC 31.5 L RDW 18.5 H Plt Count 118 L Seg Neutrophils % 75.3 Lymphocytes % 11.6 L Monocytes % 10.3 Eosinophils % 2.1 Basophils % 0.7 Absolute Neutrophils 4.7 Absolute Lymphocytes 0.7 Absolute Monocytes 0.6 Absolute Eosinophils 0.1 Absolute Basophils 0.0 Carbonic Acid 0.97 L HCO3/H2CO3 Ratio 19:1 ABG pH 7.38 ABG pCO2 32.1 L ABG pO2 95.6 ABG HCO3 18.6 L ABG O2 Saturation 97.3 ABG Base Excess -5.3 FiO2 21% Sodium Cancelled Potassium Cancelled Chloride Cancelled Carbon Dioxide Cancelled Anion Gap Cancelled BUN Cancelled Creatinine Cancelled Est GFR ( Amer) Cancelled Est GFR (Non-Af Amer) Cancelled Glucose Cancelled Calcium Cancelled Phosphorus Magnesium Total Bilirubin AST ALT Alkaline Phosphatase Total Protein Albumin 05/09/17 06:15 WBC RBC Hgb Hct MCV MCH MCHC RDW Plt Count Seg Neutrophils % Lymphocytes % Monocytes % Eosinophils % Basophils % Absolute Neutrophils Absolute Lymphocytes Absolute Monocytes Absolute Eosinophils Absolute Basophils Carbonic Acid HCO3/H2CO3 Ratio ABG pH ABG pCO2 ABG pO2 ABG HCO3 ABG O2 Saturation ABG Base Excess FiO2 Sodium 146.0 H Potassium 3.7 Chloride 120 H Carbon Dioxide 20 L Anion Gap 6 BUN 8 Creatinine 1.03 Est GFR ( Amer) > 60 Est GFR (Non-Af Amer) > 60 Glucose 103 Calcium 8.2 L Phosphorus 2.7 Magnesium 1.8 Total Bilirubin 0.3 AST 17 ALT 19 L Alkaline Phosphatase 62 Total Protein 5.4 L Albumin 2.3 L 05/05/17 16:45 Thigh - Left Gram Stain - Final 05/05/17 05/05/17 05/05/17 17:15 17:15 23:30 Creatine Kinase 123 160 CK-MB (CK-2) 3.17 Troponin I 0.312 05/05/17 05/06/17 05/06/17 23:30 04:35 04:35 Creatine Kinase 207 H CK-MB (CK-2) 4.65 H 4.97 H Troponin I 0.432 0.375 05/08/17 05/08/17 05/09/17 12:00 12:00 06:15 Creatine Kinase 186 H 197 H CK-MB (CK-2) 0.65 Troponin I 0.060 05/09/17 06:15 Creatine Kinase CK-MB (CK-2) 0.75 Troponin I 0.056 Impressions: Head CT 05/05/17 12:43 IMPRESSION: MILD CHRONIC CHANGES OF ATROPHY AND MICROVASCULAR ISCHEMIA. NO ACUTE PROCESS. KUB X-Ray 05/05/17 13:59 IMPRESSION: NG tube appears to be in satisfactory position. Mild small-bowel distention as described. 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 There is no plain film evidence for bony involvement by osteomyelitis. Other findings as noted above Chest X-Ray 05/09/17 06:00 IMPRESSION: No significant interval change. Assessment & Plan - Diagnosis (1) Pseudomonal sepsis Is this a current diagnosis for this admission?: YesPlan: Continue on current antibiotic therapy. Prognosis remain guarded. (2) Leg abrasion, infected Qualifiers: Laterality: left Is this a current diagnosis for this admission?: YesPlan: Continue antibiotic coverage. Follow up on Gram positive cocci in pair organism identification and sensitivity. (3) Acute respiratory failure with hypercapnia Is this a current diagnosis for this admission?: YesPlan: Continue ventilatory support. Clinical Data Abstractor input appreciated. - Time Time Spent with patient: 25-34 minutes Medications reviewed and adjusted accordingly: Yes Anticipated discharge: SNF Within: Other - Inpatient Certification Based on my medical assessment, after consideration of the patient's comorbidities, presenting symptoms, or acuity I expect that the services needed warrant INPATIENT care.: Yes I certify that my determination is in accordance with my understanding of Medicare's requirements for reasonable and necessary INPATIENT services [42 CFR 412.3e].: Yes Medical Necessity: Need Close Monitoring Due to Risk of Patient Decompensation, Need For IV Fluids, Need For Continuous Telemetry Monitoring, Need for Nebulizer Therapy and Monitoring of Response, Need for IV Antibiotics, Risk of Complication if Not Cared For in Hospital Post Hospital Care: D/C or Transfer Summary - Plan Summary Plan Summary: See covering attending physician orders.
[2017-05-09] MEDS: COLLAGENASE CLOSTRIDIUM HIST. OINT 30 GM TOP SCH ×2 (09:20→17:50)
--- NOTE | 2017-05-09 10:34 | PDOC PROGRESS REPORT ---
Subjective Progress Note for:: 05/09/17 Subjective:: intubated and sedated Physical Exam Vital Signs: Temp Pulse Resp BP Pulse Ox 97.7 F 65 14 106/72 100 05/09/17 07:40 05/09/17 07:40 05/09/17 07:40 05/09/17 07:40 05/09/17 07:40 Intake & Output 05/08/17 05/09/17 05/10/17 06:59 06:59 06:59 Intake Total 2899 2803 Output Total 1110 1010 35 Balance 1789 1793 -35 Weight 69.9 kg 72 kg General appearance: PRESENT: no acute distress, disheveled, well-developed, well -nourished Head exam: PRESENT: atraumatic, normocephalic Eye exam: PRESENT: conjunctiva pale Mouth exam: PRESENT: dry mucosa, neck supple, tongue midline, other - ET tube in place Neck exam: ABSENT: carotid bruit, JVD, lymphadenopathy, thyromegaly Respiratory exam: PRESENT: decreased breath sounds, prolonged expiratory phas, rhonchi, symmetrical, unlabored. ABSENT: crackles, rales, retraction, stridor, tachypnea, wheezes Cardiovascular exam: PRESENT: RRR, rubs, +S1. ABSENT: bradycardia, clicks Pulses: PRESENT: normal radial pulses GI/Abdominal exam: PRESENT: diminished bowel sounds, soft. ABSENT: distended, guarding, mass, organolmegaly, rebound, tenderness Rectal exam: PRESENT: deferred Gentrourinary exam: PRESENT: indwelling catheter Musculoskeletal exam: PRESENT: normal inspection Skin exam: PRESENT: dry, warm Results Laboratory Results: 05/09/17 06:15 05/09/17 06:15 05/09/17 05/09/17 05/09/17 06:15 06:15 06:15 WBC 6.2 RBC 3.34 L Hgb 9.0 L Hct 28.5 L MCV 85 MCH 26.8 L MCHC 31.5 L RDW 18.5 H Plt Count 118 L Seg Neutrophils % 75.3 Lymphocytes % 11.6 L Monocytes % 10.3 Eosinophils % 2.1 Basophils % 0.7 Absolute Neutrophils 4.7 Absolute Lymphocytes 0.7 Absolute Monocytes 0.6 Absolute Eosinophils 0.1 Absolute Basophils 0.0 Carbonic Acid 0.97 L HCO3/H2CO3 Ratio 19:1 ABG pH 7.38 ABG pCO2 32.1 L ABG pO2 95.6 ABG HCO3 18.6 L ABG O2 Saturation 97.3 ABG Base Excess -5.3 FiO2 21% Sodium Cancelled Potassium Cancelled Chloride Cancelled Carbon Dioxide Cancelled Anion Gap Cancelled BUN Cancelled Creatinine Cancelled Est GFR ( Amer) Cancelled Est GFR (Non-Af Amer) Cancelled Glucose Cancelled Calcium Cancelled Phosphorus Magnesium Total Bilirubin AST ALT Alkaline Phosphatase Total Protein Albumin 05/09/17 06:15 WBC RBC Hgb Hct MCV MCH MCHC RDW Plt Count Seg Neutrophils % Lymphocytes % Monocytes % Eosinophils % Basophils % Absolute Neutrophils Absolute Lymphocytes Absolute Monocytes Absolute Eosinophils Absolute Basophils Carbonic Acid HCO3/H2CO3 Ratio ABG pH ABG pCO2 ABG pO2 ABG HCO3 ABG O2 Saturation ABG Base Excess FiO2 Sodium 146.0 H Potassium 3.7 Chloride 120 H Carbon Dioxide 20 L Anion Gap 6 BUN 8 Creatinine 1.03 Est GFR ( Amer) > 60 Est GFR (Non-Af Amer) > 60 Glucose 103 Calcium 8.2 L Phosphorus 2.7 Magnesium 1.8 Total Bilirubin 0.3 AST 17 ALT 19 L Alkaline Phosphatase 62 Total Protein 5.4 L Albumin 2.3 L 05/05/17 16:45 Thigh - Left Gram Stain - Final 05/05/17 05/05/17 05/05/17 17:15 17:15 23:30 Creatine Kinase 123 160 CK-MB (CK-2) 3.17 Troponin I 0.312 05/05/17 05/06/17 05/06/17 23:30 04:35 04:35 Creatine Kinase 207 H CK-MB (CK-2) 4.65 H 4.97 H Troponin I 0.432 0.375 05/08/17 05/08/17 05/09/17 12:00 12:00 06:15 Creatine Kinase 186 H 197 H CK-MB (CK-2) 0.65 Troponin I 0.060 05/09/17 06:15 Creatine Kinase CK-MB (CK-2) 0.75 Troponin I 0.056 Impressions: Head CT 05/05/17 12:43 IMPRESSION: MILD CHRONIC CHANGES OF ATROPHY AND MICROVASCULAR ISCHEMIA. NO ACUTE PROCESS. KUB X-Ray 05/05/17 13:59 IMPRESSION: NG tube appears to be in satisfactory position. Mild small-bowel distention as described. 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 There is no plain film evidence for bony involvement by osteomyelitis. Other findings as noted above Chest X-Ray 05/09/17 06:00 IMPRESSION: No significant interval change. Assessment & Plan - Diagnosis (1) Lactic acidosis Is this a current diagnosis for this admission?: YesPlan: Labs- All tests 24 hr 05/05/17 05/05/17 05/06/17 12:54 21:20 04:35 Carbon Dioxide 8 L* 19 L D 18 L 05/07/17 05/08/17 05/09/17 05:25 05:30 06:15 Carbon Dioxide 19 L 19 L 20 L (2) Septic shock Is this a current diagnosis for this admission?: Yes (3) Unresponsive episode Is this a current diagnosis for this admission?: Yes (4) Leg abrasion, infected Qualifiers: Laterality: left Is this a current diagnosis for this admission?: YesPlan: 05/05/17 16:45 Gram Stain - Final Thigh - Left Wound Culture - Preliminary Pseudomonas Aeruginosa Gram Positive Cocci In Pairs Skin Cintia 05/05/17 16:35 Gram Stain - Final Tracheal Aspirate Sputum Culture - Final NORMAL CINTIA - Time Critical Time spent with patient: 25-34 minutes
[2017-05-10] MEDS: HEPARIN SOD (PORCINE) 5,000 UNIT/ML 1 ML SYRINGE SUBCUT SCH ×3 (05:22→21:44)
[2017-05-10] MEDS: VANCOMYCIN HCL 750 MG in DEXTROSE 5%-WATER 250 ML IV SCH ×2 (05:22→18:34)
[2017-05-10] MEDS: LANSOPRAZOLE 30 MG TAB.RAP.DR PO SCH ×2 (05:22→18:17)
[2017-05-10] MEDS: PIPERACILLIN SODIUM/TAZOBACTAM 3.375 GM in NORMAL SALINE 100 ML IV SCH ×4 (05:23→23:17)
[2017-05-10] MEDS: CLINDAMYCIN 600 MG/D5W RTU 600 MG/50 ML RTUPB IV SCH ×3 (05:23→21:43)
[2017-05-10] MEDS: PROPOFOL 100 ML IV PRN ×3 (06:54→23:17)
[2017-05-10] MEDS ORDERED: POTASSI CL 20 MEQ/50 ML RIDER 20 MEQ/50 ML RTUPB IV ONE ×2 (07:24→07:31)
[2017-05-10 07:48] LABS: ABSOLUTE BASOPHILS # (AUTO) 0.1 10^3/uL (0.0-0.2); ABSOLUTE EOSINOPHILS # (AUTO) 0.1 10^3/uL (0.0-0.6); ABSOLUTE LYMPHOCYTES (AUTO) 0.7 10^3/uL (0.5-4.7); ABSOLUTE MONOCYTES (AUTO) 0.7 10^3/uL (0.1-1.4); ABSOLUTE NEUT (AUTO) 3.8 10^3/uL (1.7-8.2); BASOPHILS % (AUTO) 1.3 % (0-2); EOSINOPHILS % (AUTO) 2.2 % (0-6); HEMATOCRIT 26.2 % (37.9-51.0); HEMOGLOBIN 8.5 g/dL (13.5-17.0); HGB HCT DIFFERENCE -0.7; LYMPHOCYTES % (AUTO) 12.8 % (13-45); MEAN CORPUSCULAR HEMOGLOBIN 27.5 pg (27.0-33.4); MEAN CORPUSCULAR HGB CONC 32.5 g/dL (32.0-36.0); MEAN CORPUSCULAR VOLUME 85 fl (80-97); MONOCYTES % (AUTO) 12.9 % (3-13); RED CELL DISTRIBUTION WIDTH 18.1 % (11.5-14.0); SEGMENTED NEUTROPHILS % (AUTO) 70.8 % (42-78); WHITE BLOOD COUNT 5.4 10^3/uL (4.0-10.5)
[2017-05-10 07:55] LABS: ANION GAP 5 (5-19); BLOOD UREA NITROGEN 6 mg/dL (7-20); CARBON DIOXIDE 21 mmol/L (22-30); CHLORIDE 120 mmol/L (98-107); CREATININE RESULT 0.95 mg/dL (0.52-1.25); GLUCOSE 103 mg/dL (75-110); MAGNESIUM 1.7 mg/dL (1.6-2.3); PHOSPHORUS 2.8 mg/dL (2.5-4.5); POTASSIUM 3.2 mmol/L (3.6-5.0); SODIUM 146.1 mmol/L (137-145)
[2017-05-10 07:56] LABS: ARTERIAL BLOOD BASE EXCESS -3.8 mmol/L; ARTERIAL BLOOD O2 SATURATION 96.8 % (94-98)
--- NOTE | 2017-05-10 08:41 | PDOC PROGRESS REPORT ---
Subjective Subjective:: Patient remain intubated and vent supported. Tolerating enteral tube feeding. Remain on IV Clindamycin, Vancpomycin and Zosyn. No reported fever. Physical Exam Vital Signs: Temp Pulse Resp BP Pulse Ox 98.2 F 62 12 95/68 L 100 05/10/17 07:54 05/10/17 07:54 05/10/17 07:54 05/10/17 07:54 05/10/17 07:54 Intake & Output 05/09/17 05/10/17 05/11/17 06:59 06:59 06:59 Intake Total 2803 3240 Output Total 1010 930 20 Balance 1793 2310 -20 Weight 72 kg 68 kg Physical Exam: Sedated on IV Propofol. ET and NG tubes in situ. Head exam: PRESENT: atraumatic, normocephalic Eye exam: PRESENT: conjunctiva pink, EOMI, PERRLA. ABSENT: scleral icterus Mouth exam: PRESENT: moist Respiratory exam: PRESENT: clear to auscultation srikanth, decreased breath sounds - at lung bases Cardiovascular exam: PRESENT: RRR - monitor revealed pacemaker rhythm. ABSENT: diastolic murmur, rubs, systolic murmur GI/Abdominal exam: PRESENT: normal bowel sounds, soft. ABSENT: distended, guarding, mass, organomegaly, rebound, tenderness Extremities exam: PRESENT: left AKA. ABSENT: pedal edema Neurological exam: PRESENT: altered - sedated Skin exam: PRESENT: dry, warm Results Laboratory Results: 05/09/17 06:15 05/09/17 06:15 05/05/17 16:45 Thigh - Left Gram Stain - Final 05/05/17 16:45 Thigh - Left Wound Culture - Final Pseudomonas Aeruginosa Enterococcus Faecalis(Group D) Skin Cintia No Anaerobic Organisms 05/05/17 05/05/17 05/05/17 17:15 17:15 23:30 Creatine Kinase 123 160 CK-MB (CK-2) 3.17 Troponin I 0.312 05/05/17 05/06/17 05/06/17 23:30 04:35 04:35 Creatine Kinase 207 H CK-MB (CK-2) 4.65 H 4.97 H Troponin I 0.432 0.375 05/08/17 05/08/17 05/09/17 12:00 12:00 06:15 Creatine Kinase 186 H 197 H CK-MB (CK-2) 0.65 Troponin I 0.060 05/09/17 06:15 Creatine Kinase CK-MB (CK-2) 0.75 Troponin I 0.056 Impressions: Head CT 05/05/17 12:43 IMPRESSION: MILD CHRONIC CHANGES OF ATROPHY AND MICROVASCULAR ISCHEMIA. NO ACUTE PROCESS. KUB X-Ray 05/05/17 13:59 IMPRESSION: NG tube appears to be in satisfactory position. Mild small-bowel distention as described. 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 There is no plain film evidence for bony involvement by osteomyelitis. Other findings as noted above Assessment & Plan - Diagnosis (1) Pseudomonal sepsis Is this a current diagnosis for this admission?: Yes (2) Leg abrasion, infected Qualifiers: Laterality: left Is this a current diagnosis for this admission?: Yes (3) Acute respiratory failure with hypercapnia Is this a current diagnosis for this admission?: Yes - Time Time Spent with patient: 25-34 minutes Medications reviewed and adjusted accordingly: Yes Anticipated discharge: SNF - Inpatient Certification Based on my medical assessment, after consideration of the patient's comorbidities, presenting symptoms, or acuity I expect that the services needed warrant INPATIENT care.: Yes I certify that my determination is in accordance with my understanding of Medicare's requirements for reasonable and necessary INPATIENT services [42 CFR 412.3e].: Yes Medical Necessity: Need Close Monitoring Due to Risk of Patient Decompensation, Need For IV Fluids, Need For Continuous Telemetry Monitoring, Need for Nebulizer Therapy and Monitoring of Response, Need for IV Antibiotics, Risk of Complication if Not Cared For in Hospital Post Hospital Care: D/C or Transfer Summary - Plan Summary Plan Summary: Continue IV Vancomycin, Zosyn and Clindamycin coverage. Patient is schedule for EEG evaluation this morning. Increase feeding rate to 30 mL/hour. Continue all other current medication management.
--- NOTE | 2017-05-10 09:03 | RADIOLOGY REPORT (SQ) ---
EXAM DESCRIPTION: CHEST SINGLE VIEW COMPLETED DATE/TIME: 05/10/2017 8:14 am REASON FOR STUDY: resp failure COMPARISON: 05/09/2008, 05/05/2017, 05/08/2017, 05/09/2017 chest films EXAM PARAMETERS: NUMBER OF VIEWS: One view. TECHNIQUE: Single frontal radiographic view of the chest acquired. RADIATION DOSE: NA LIMITATIONS: None. FINDINGS: LUNGS AND PLEURA: Mild pulmonary vascular prominence is present with mild alveolar and int erstitial edema and trace bilateral pleural effusions. This is new compared 05/09/2017 at 0555 hours. No pneumothorax MEDIASTINUM AND HILAR STRUCTURES: No masses. Contour normal. HEART AND VASCULAR STRUCTURES: No cardiomegaly BONES: No acute findings. HARDWARE: Endotracheal tube tip 4 cm above the johnny. Nasogastric tube tip and side port in the sto mach. Right jugular central line tip superior vena cava. OTHER: Left-sided pacemaker unchanged IMPRESSION: Mild alveolar and interstitial edema with trace pleural effusions. TECHNICAL DOCUMENTATION: JOB ID: [id number]
[2017-05-10] MEDS: COLLAGENASE CLOSTRIDIUM HIST. OINT 30 GM TOP SCH ×2 (10:50→18:12)
[2017-05-10 12:48] LABS: ANION GAP 6 (5-19); BLOOD UREA NITROGEN 6 mg/dL (7-20); CALCIUM 7.9 mg/dL (8.4-10.2); CARBON DIOXIDE 21 mmol/L (22-30); CHLORIDE 119 mmol/L (98-107); CREATININE RESULT 0.89 mg/dL (0.52-1.25); GLUCOSE 112 mg/dL (75-110); POTASSIUM 3.6 mmol/L (3.6-5.0); SODIUM 146.1 mmol/L (137-145)
--- NOTE | 2017-05-10 16:09 | PDOC PROGRESS REPORT ---
Subjective Progress Note for:: 05/10/17 Subjective:: intubated and sedated Physical Exam Vital Signs: Temp Pulse Resp BP Pulse Ox 98.2 F 62 12 95/68 L 100 05/10/17 07:54 05/10/17 07:54 05/10/17 07:54 05/10/17 07:54 05/10/17 07:54 Intake & Output 05/09/17 05/10/17 05/11/17 06:59 06:59 06:59 Intake Total 2803 3240 Output Total 1010 930 20 Balance 1793 2310 -20 Weight 72 kg 68 kg General appearance: PRESENT: no acute distress, disheveled, thin, well-developed Head exam: PRESENT: atraumatic, normocephalic Eye exam: PRESENT: conjunctiva pale Mouth exam: PRESENT: dry mucosa, neck supple, tongue midline, other - ET tube in place Neck exam: ABSENT: carotid bruit, JVD, lymphadenopathy, thyromegaly Respiratory exam: PRESENT: decreased breath sounds, prolonged expiratory phas, rhonchi, symmetrical, unlabored Cardiovascular exam: PRESENT: RRR, +S1, +S2 Pulses: PRESENT: normal radial pulses GI/Abdominal exam: PRESENT: ascites Rectal exam: PRESENT: deferred Gentrourinary exam: PRESENT: indwelling catheter Musculoskeletal exam: PRESENT: normal inspection Skin exam: PRESENT: dry, warm Results Laboratory Results: 05/09/17 06:15 05/09/17 06:15 05/05/17 16:45 Thigh - Left Gram Stain - Final 05/05/17 16:45 Thigh - Left Wound Culture - Final Pseudomonas Aeruginosa Enterococcus Faecalis(Group D) Skin Cintia No Anaerobic Organisms 05/05/17 05/05/17 05/05/17 17:15 17:15 23:30 Creatine Kinase 123 160 CK-MB (CK-2) 3.17 Troponin I 0.312 05/05/17 05/06/17 05/06/17 23:30 04:35 04:35 Creatine Kinase 207 H CK-MB (CK-2) 4.65 H 4.97 H Troponin I 0.432 0.375 05/08/17 05/08/17 05/09/17 12:00 12:00 06:15 Creatine Kinase 186 H 197 H CK-MB (CK-2) 0.65 Troponin I 0.060 05/09/17 06:15 Creatine Kinase CK-MB (CK-2) 0.75 Troponin I 0.056 Impressions: Head CT 05/05/17 12:43 IMPRESSION: MILD CHRONIC CHANGES OF ATROPHY AND MICROVASCULAR ISCHEMIA. NO ACUTE PROCESS. KUB X-Ray 05/05/17 13:59 IMPRESSION: NG tube appears to be in satisfactory position. Mild small-bowel distention as described. 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 There is no plain film evidence for bony involvement by osteomyelitis. Other findings as noted above Assessment & Plan - Diagnosis (1) Lactic acidosis Is this a current diagnosis for this admission?: Yes Plan: Left thigh wound debrided by surgery 05/05/17 16:45 Gram Stain - Final Thigh - Left Wound Culture - Final Pseudomonas Aeruginosa Enterococcus Faecalis(Group D) Skin Cintia No Anaerobic Organisms (2) Septic shock Is this a current diagnosis for this admission?: No (3) Unresponsive episode Is this a current diagnosis for this admission?: Yes (4) Leg abrasion, infected Qualifiers: Laterality: left Is this a current diagnosis for this admission?: Yes - Time Critical Time spent with patient: 25-34 minutes - Plan Summary Plan Summary: Positive fluid balance 8.9 L over the last 5 days Lasix 20 IV every 124 doses
[2017-05-10] MEDS: FUROSEMIDE INJ/PF 20 MG/2 ML SDV IV SCH (18:11)
[2017-05-10 18:16] LABS: CREATININE RESULT 0.87 mg/dL (0.52-1.25)
[2017-05-10] MEDS: NORMAL SALINE 1000 ML 1,000 ML IV PRN (18:27)
[2017-05-11] MEDS: VANCOMYCIN HCL 750 MG in DEXTROSE 5%-WATER 250 ML IV SCH ×2 (05:33→17:49)
[2017-05-11] MEDS: PROPOFOL 100 ML IV PRN (05:33)
[2017-05-11 05:34] LABS: ARTERIAL BLOOD BASE EXCESS -1.7 mmol/L; ARTERIAL BLOOD O2 SATURATION 96.3 % (94-98)
[2017-05-11] MEDS: CLINDAMYCIN 600 MG/D5W RTU 600 MG/50 ML RTUPB IV SCH ×3 (05:34→21:08)
[2017-05-11] MEDS: FUROSEMIDE INJ/PF 20 MG/2 ML SDV IV SCH ×2 (05:35→17:50)
[2017-05-11] MEDS: PIPERACILLIN SODIUM/TAZOBACTAM 3.375 GM in NORMAL SALINE 100 ML IV SCH ×4 (05:35→23:59)
[2017-05-11] MEDS: HEPARIN SOD (PORCINE) 5,000 UNIT/ML 1 ML SYRINGE SUBCUT SCH ×3 (05:36→21:08)
[2017-05-11] MEDS: LANSOPRAZOLE 30 MG TAB.RAP.DR PO SCH ×2 (05:36→17:09)
[2017-05-11] MEDS: NORMAL SALINE 1000 ML 1,000 ML IV PRN ×2 (05:38→19:37)
[2017-05-11 05:53] LABS: BLOOD UREA NITROGEN 4 mg/dL (7-20); CALCIUM 7.8 mg/dL (8.4-10.2); CHLORIDE 119 mmol/L (98-107); CREATININE RESULT 0.95 mg/dL (0.52-1.25); GLUCOSE 91 mg/dL (75-110)
[2017-05-11 06:05] LABS: CARBON DIOXIDE 23 mmol/L (22-30); POTASSIUM 3.1 mmol/L (3.6-5.0)
[2017-05-11 06:06] LABS: ANION GAP 1 (5-19)
[2017-05-11] MEDS: POTASSIUM CHLORIDE 20 MEQ/50 ML RTU IV SCH ×2 (07:50→09:30)
[2017-05-11] MEDS: COLLAGENASE CLOSTRIDIUM HIST. OINT 30 GM TOP SCH ×2 (09:32→17:29)
--- NOTE | 2017-05-11 11:18 | PDOC PROGRESS REPORT ---
Subjective Progress Note for:: 05/11/17 Subjective:: intubated Responds appropriately to commands Physical Exam Vital Signs: Temp Pulse Resp BP Pulse Ox 99.7 F 69 12 133/70 H 95 05/10/17 15:57 05/10/17 20:00 05/11/17 06:00 05/11/17 05:51 05/11/17 06:00 Intake & Output 05/10/17 05/11/17 05/12/17 06:59 06:59 06:59 Intake Total 3240 4278 Output Total 930 3285 Balance 2310 993 Weight 68 kg 67.5 kg General appearance: PRESENT: no acute distress, cooperative, disheveled, well- developed, well-nourished Head exam: PRESENT: atraumatic, normocephalic Eye exam: PRESENT: conjunctiva pale, EOMI Mouth exam: PRESENT: dry mucosa, neck supple, tongue midline, other - ET tube in place Neck exam: ABSENT: carotid bruit, JVD, lymphadenopathy, thyromegaly Respiratory exam: PRESENT: decreased breath sounds, prolonged expiratory phas, rhonchi, symmetrical, unlabored Cardiovascular exam: PRESENT: RRR, +S1, +S2 Pulses: PRESENT: normal radial pulses GI/Abdominal exam: PRESENT: diminished bowel sounds, soft. ABSENT: distended, guarding, mass, organolmegaly, rebound, tenderness Rectal exam: PRESENT: deferred Gentrourinary exam: PRESENT: indwelling catheter Musculoskeletal exam: PRESENT: normal inspection Neurological exam: PRESENT: awake Skin exam: PRESENT: dry, warm Results Laboratory Results: 05/10/17 05:10 05/11/17 05:15 05/10/17 05/10/17 05/10/17 05:10 05:45 05:45 WBC 5.4 RBC 3.10 L Hgb 8.5 L Hct 26.2 L MCV 85 MCH 27.5 MCHC 32.5 RDW 18.1 H Plt Count 114 L Seg Neutrophils % 70.8 Lymphocytes % 12.8 L Monocytes % 12.9 Eosinophils % 2.2 Basophils % 1.3 Absolute Neutrophils 3.8 Absolute Lymphocytes 0.7 Absolute Monocytes 0.7 Absolute Eosinophils 0.1 Absolute Basophils 0.1 Carbonic Acid 0.91 L HCO3/H2CO3 Ratio 21:1 ABG pH 7.42 ABG pCO2 30.2 L ABG pO2 85.2 ABG HCO3 19.3 L ABG O2 Saturation 96.8 ABG Base Excess -3.8 FiO2 21% Sodium 146.1 H Potassium 3.2 L Chloride 120 H Carbon Dioxide 21 L Anion Gap 5 BUN 6 L Creatinine 0.95 Est GFR ( Amer) > 60 Est GFR (Non-Af Amer) > 60 Glucose 103 Calcium 8.0 L Phosphorus 2.8 Magnesium 1.7 05/10/17 05/10/17 05/11/17 12:00 17:51 05:15 WBC RBC Hgb Hct MCV MCH MCHC RDW Plt Count Seg Neutrophils % Lymphocytes % Monocytes % Eosinophils % Basophils % Absolute Neutrophils Absolute Lymphocytes Absolute Monocytes Absolute Eosinophils Absolute Basophils Carbonic Acid 0.99 L HCO3/H2CO3 Ratio 22:1 ABG pH 7.44 ABG pCO2 32.9 L ABG pO2 79.4 L ABG HCO3 22.0 ABG O2 Saturation 96.3 ABG Base Excess -1.7 FiO2 21% Sodium 146.1 H Potassium 3.6 Chloride 119 H Carbon Dioxide 21 L Anion Gap 6 BUN 6 L Creatinine 0.89 0.87 Est GFR ( Amer) > 60 > 60 Est GFR (Non-Af Amer) > 60 > 60 Glucose 112 H Calcium 7.9 L Phosphorus Magnesium 05/11/17 05:15 WBC RBC Hgb Hct MCV MCH MCHC RDW Plt Count Seg Neutrophils % Lymphocytes % Monocytes % Eosinophils % Basophils % Absolute Neutrophils Absolute Lymphocytes Absolute Monocytes Absolute Eosinophils Absolute Basophils Carbonic Acid HCO3/H2CO3 Ratio ABG pH ABG pCO2 ABG pO2 ABG HCO3 ABG O2 Saturation ABG Base Excess FiO2 Sodium 143.0 Potassium 3.1 L Chloride 119 H Carbon Dioxide 23 Anion Gap 1 L BUN 4 L Creatinine 0.95 Est GFR ( Amer) > 60 Est GFR (Non-Af Amer) > 60 Glucose 91 Calcium 7.8 L Phosphorus Magnesium 05/05/17 05/05/17 05/05/17 17:15 17:15 23:30 Creatine Kinase 123 160 CK-MB (CK-2) 3.17 Troponin I 0.312 05/05/17 05/06/17 05/06/17 23:30 04:35 04:35 Creatine Kinase 207 H CK-MB (CK-2) 4.65 H 4.97 H Troponin I 0.432 0.375 05/08/17 05/08/1717 12:00 12:00 06:15 Creatine Kinase 186 H 197 H CK-MB (CK-2) 0.65 Troponin I 0.060 05/09/17 06:15 Creatine Kinase CK-MB (CK-2) 0.75 Troponin I 0.056 Impressions: Head CT 05/05/17 12:43 IMPRESSION: MILD CHRONIC CHANGES OF ATROPHY AND MICROVASCULAR ISCHEMIA. NO ACUTE PROCESS. KUB X-Ray 05/05/17 13:59 IMPRESSION: NG tube appears to be in satisfactory position. Mild small-bowel distention as described. 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 There is no plain film evidence for bony involvement by osteomyelitis. Other findings as noted above Assessment & Plan - Diagnosis (1) Lactic acidosis Is this a current diagnosis for this admission?: Yes Plan: Metabolic acidosis continues to improve (2) Septic shock Is this a current diagnosis for this admission?: No (3) Unresponsive episode Is this a current diagnosis for this admission?: Yes Plan: Patient currently responding to commands appropriately (4) Leg abrasion, infected Qualifiers: Laterality: left Is this a current diagnosis for this admission?: Yes Plan: 05/05/17 16:45 Gram Stain - Final Thigh - Left Wound Culture - Preliminary Pseudomonas Aeruginosa Gram Positive Cocci In Pairs Skin Cintia 05/05/17 16:35 Gram Stain - Final Tracheal Aspirate Sputum Culture - Final NORMAL CINTIA - Time Critical Time spent with patient: 35 or more minutes - Extubation 55 minutes - Plan Summary Plan Summary: Mental status, respiratory rate, FiO2, minute ventilation all suggest successful extubation will proceed with extubation
--- NOTE | 2017-05-11 19:08 | PDOC PROGRESS REPORT ---
Subjective Progress Note for:: 05/11/17 Subjective:: Patient remain intubated, vent supported, awake and following commands presently. Tolerating enteral tube feeding. Remain on IV Clindamycin, Vancomycin and Zosyn. No reported fever. Physical Exam Vital Signs: Temp Pulse Resp BP Pulse Ox 99.7 F 79 15 135/89 H 96 05/11/17 16:00 05/11/17 18:00 05/11/17 18:52 05/11/17 18:52 05/11/17 18:52 Intake & Output 05/10/17 05/11/17 05/12/17 06:59 06:59 06:59 Intake Total 3240 4278 1291 Output Total 930 3285 1875 Balance 2310 993 -584 Weight 68 kg 67.5 kg Physical Exam: ET and NG tubes in situ. Head exam: PRESENT: atraumatic, normocephalic Eye exam: PRESENT: conjunctiva pink, EOMI, PERRLA. ABSENT: scleral icterus Mouth exam: PRESENT: moist Respiratory exam: PRESENT: clear to auscultation srikanth, decreased breath sounds - at lung bases Cardiovascular exam: PRESENT: RRR - monitor revealed pacemaker rhythm. ABSENT: diastolic murmur, rubs, systolic murmur GI/Abdominal exam: PRESENT: normal bowel sounds, soft. ABSENT: distended, guarding, mass, organomegaly, rebound, tenderness Extremities exam: PRESENT: left AKA. ABSENT: pedal edema Neurological exam: PRESENT: altered - sedated Skin exam: PRESENT: dry, warm. [place] in situ. Wound dressing satisfactory. Results Laboratory Results: 05/10/17 05:10 05/11/17 14:51 05/11/17 05/11/17 05/11/17 05:15 05:15 14:51 Carbonic Acid 0.99 L HCO3/H2CO3 Ratio 22:1 ABG pH 7.44 ABG pCO2 32.9 L ABG pO2 79.4 L ABG HCO3 22.0 ABG O2 Saturation 96.3 ABG Base Excess -1.7 FiO2 21% Sodium 143.0 Potassium 3.1 L 3.7 Chloride 119 H Carbon Dioxide 23 Anion Gap 1 L BUN 4 L Creatinine 0.95 Est GFR ( Amer) > 60 Est GFR (Non-Af Amer) > 60 Glucose 91 Calcium 7.8 L 05/05/17 05/05/17 05/05/17 17:15 17:15 23:30 Creatine Kinase 123 160 CK-MB (CK-2) 3.17 Troponin I 0.312 05/05/17 05/06/17 05/06/17 23:30 04:35 04:35 Creatine Kinase 207 H CK-MB (CK-2) 4.65 H 4.97 H Troponin I 0.432 0.375 05/08/17 05/08/17 05/09/17 12:00 12:00 06:15 Creatine Kinase 186 H 197 H CK-MB (CK-2) 0.65 Troponin I 0.060 05/09/17 06:15 Creatine Kinase CK-MB (CK-2) 0.75 Troponin I 0.056 Impressions: Head CT 05/05/17 12:43 IMPRESSION: MILD CHRONIC CHANGES OF ATROPHY AND MICROVASCULAR ISCHEMIA. NO ACUTE PROCESS. KUB X-Ray 05/05/17 13:59 IMPRESSION: NG tube appears to be in satisfactory position. Mild small-bowel distention as described. 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 There is no plain film evidence for bony involvement by osteomyelitis. Other findings as noted above Assessment & Plan - Diagnosis (1) Pseudomonal sepsis Is this a current diagnosis for this admission?: Yes (2) Leg abrasion, infected Qualifiers: Laterality: left Is this a current diagnosis for this admission?: Yes (3) Acute respiratory failure with hypercapnia Is this a current diagnosis for this admission?: Yes - Time Time Spent with patient: 25-34 minutes Medications reviewed and adjusted accordingly: Yes Anticipated discharge: SNF Within: Other - Inpatient Certification Based on my medical assessment, after consideration of the patient's comorbidities, presenting symptoms, or acuity I expect that the services needed warrant INPATIENT care.: Yes I certify that my determination is in accordance with my understanding of Medicare's requirements for reasonable and necessary INPATIENT services [42 CFR 412.3e].: Yes Medical Necessity: Need Close Monitoring Due to Risk of Patient Decompensation, Need For IV Fluids, Need For Continuous Telemetry Monitoring, Need for Nebulizer Therapy and Monitoring of Response, Need for IV Antibiotics, Risk of Complication if Not Cared For in Hospital Post Hospital Care: D/C or Transfer Summary - Plan Summary Plan Summary: Continue current antibiotic coverage. Possible extubation in the morning. Maintain on all other current medication management.
[2017-05-12 05:17] LABS: ARTERIAL BLOOD O2 SATURATION 96.2 % (94-98)
[2017-05-12 05:22] LABS: ABSOLUTE EOSINOPHILS # (AUTO) 0.1 10^3/uL (0.0-0.6); ABSOLUTE MONOCYTES (AUTO) 0.9 10^3/uL (0.1-1.4); ABSOLUTE NEUT (AUTO) 5.3 10^3/uL (1.7-8.2); BASOPHILS % (AUTO) 0.5 % (0-2); EOSINOPHILS % (AUTO) 1.9 % (0-6); HEMATOCRIT 26.3 % (37.9-51.0); HEMOGLOBIN 8.4 g/dL (13.5-17.0); HGB HCT DIFFERENCE -1.1; LYMPHOCYTES % (AUTO) 13.1 % (13-45); MEAN CORPUSCULAR HEMOGLOBIN 26.7 pg (27.0-33.4); MEAN CORPUSCULAR VOLUME 84 fl (80-97); MONOCYTES % (AUTO) 12.7 % (3-13); RED BLOOD COUNT 3.15 10^6/uL (4.35-5.55); RED CELL DISTRIBUTION WIDTH 18.4 % (11.5-14.0); SEGMENTED NEUTROPHILS % (AUTO) 71.8 % (42-78); WHITE BLOOD COUNT 7.4 10^3/uL (4.0-10.5)
[2017-05-12 05:39] LABS: ALANINE AMINOTRANSFERASE 37 U/L (21-72); ALBUMIN 2.2 g/dL (3.5-5.0); ALKALINE PHOSPHATASE 57 U/L (38-126); ANION GAP 7 (5-19); ASPARTATE AMINO TRANSFERASE 42 U/L (17-59); BILIRUBIN,DIRECT 0.3 mg/dL (0.0-0.4); BILIRUBIN,TOTAL 0.3 mg/dL (0.2-1.3); BLOOD UREA NITROGEN 5 mg/dL (7-20); CARBON DIOXIDE 24 mmol/L (22-30); CHLORIDE 114 mmol/L (98-107); CREATININE RESULT 0.87 mg/dL (0.52-1.25); GLUCOSE 92 mg/dL (75-110); MAGNESIUM 1.3 mg/dL (1.6-2.3); POTASSIUM 3.1 mmol/L (3.6-5.0); SODIUM 144.5 mmol/L (137-145); TOTAL PROTEIN 5.1 g/dL (6.3-8.2)
[2017-05-12] MEDS: VANCOMYCIN HCL 750 MG in DEXTROSE 5%-WATER 250 ML IV SCH ×2 (06:00→17:33)
[2017-05-12] MEDS: CLINDAMYCIN 600 MG/D5W RTU 600 MG/50 ML RTUPB IV SCH ×2 (06:01→14:03)
[2017-05-12] MEDS: FUROSEMIDE INJ/PF 20 MG/2 ML SDV IV SCH (06:01)
[2017-05-12] MEDS: LANSOPRAZOLE 30 MG TAB.RAP.DR PO SCH ×2 (06:02→17:34)
[2017-05-12] MEDS: HEPARIN SOD (PORCINE) 5,000 UNIT/ML 1 ML SYRINGE SUBCUT SCH ×3 (06:02→21:21)
[2017-05-12] MEDS: PIPERACILLIN SODIUM/TAZOBACTAM 3.375 GM in NORMAL SALINE 100 ML IV SCH ×3 (06:03→17:34)
[2017-05-12] MEDS: NORMAL SALINE 1000 ML 1,000 ML IV PRN ×2 (06:04→17:36)
[2017-05-12] MEDS: POTASSIUM CHLORIDE 20 MEQ/50 ML RTU IV SCH ×4 (07:49→19:48)
[2017-05-12] MEDS: COLLAGENASE CLOSTRIDIUM HIST. OINT 30 GM TOP SCH ×2 (11:00→17:35)
--- NOTE | 2017-05-12 14:26 | PDOC PROGRESS REPORT ---
Subjective Progress Note for:: 05/12/17 Subjective:: intubated Responds appropriately to commands,[place] Continues to display Physical Exam Vital Signs: Temp Pulse Resp BP Pulse Ox 99.7 F 90 20 127/109 H 80 L 05/12/17 05:46 05/11/17 20:00 05/12/17 06:22 05/12/17 06:22 05/12/17 06:22 Intake & Output 05/11/17 05/12/17 05/13/17 06:59 06:59 06:59 Intake Total 4278 3135 Output Total 3285 4175 Balance 993 -1040 Weight 67.5 kg 72.6 kg General appearance: PRESENT: no acute distress, cooperative, disheveled, thin, well-developed Head exam: PRESENT: atraumatic, normocephalic Eye exam: PRESENT: conjunctiva pale, EOMI Mouth exam: PRESENT: dry mucosa, neck supple, tongue midline, other - ET in place Neck exam: ABSENT: carotid bruit, JVD, lymphadenopathy, thyromegaly Respiratory exam: PRESENT: decreased breath sounds, prolonged expiratory phas, rhonchi, symmetrical, unlabored Cardiovascular exam: PRESENT: RRR, +S1, +S2 Pulses: PRESENT: normal radial pulses GI/Abdominal exam: PRESENT: normal bowel sounds, soft. ABSENT: distended, guarding, mass, organolmegaly, rebound, tenderness Rectal exam: PRESENT: deferred Gentrourinary exam: PRESENT: indwelling catheter Musculoskeletal exam: PRESENT: normal inspection Neurological exam: PRESENT: awake Psychiatric exam: PRESENT: flat affect Skin exam: PRESENT: dry, warm Results Laboratory Results: 05/12/17 05:00 05/12/17 05:00 05/11/17 05/12/17 05/12/17 14:51 05:00 05:00 WBC 7.4 RBC 3.15 L Hgb 8.4 L Hct 26.3 L MCV 84 MCH 26.7 L MCHC 32.0 RDW 18.4 H Plt Count 121 L Seg Neutrophils % 71.8 Lymphocytes % 13.1 Monocytes % 12.7 Eosinophils % 1.9 Basophils % 0.5 Absolute Neutrophils 5.3 Absolute Lymphocytes 1.0 Absolute Monocytes 0.9 Absolute Eosinophils 0.1 Absolute Basophils 0.0 Carbonic Acid 1.00 L HCO3/H2CO3 Ratio 22:1 ABG pH 7.45 ABG pCO2 33.1 L ABG pO2 78.3 L ABG HCO3 22.5 ABG O2 Saturation 96.2 ABG Base Excess -1.0 FiO2 21% Sodium Potassium 3.7 Chloride Carbon Dioxide Anion Gap BUN Creatinine Est GFR ( Amer) Est GFR (Non-Af Amer) Glucose Calcium Magnesium Total Bilirubin AST ALT Alkaline Phosphatase Total Protein Albumin 05/12/17 05:00 WBC RBC Hgb Hct MCV MCH MCHC RDW Plt Count Seg Neutrophils % Lymphocytes % Monocytes % Eosinophils % Basophils % Absolute Neutrophils Absolute Lymphocytes Absolute Monocytes Absolute Eosinophils Absolute Basophils Carbonic Acid HCO3/H2CO3 Ratio ABG pH ABG pCO2 ABG pO2 ABG HCO3 ABG O2 Saturation ABG Base Excess FiO2 Sodium 144.5 Potassium 3.1 L Chloride 114 H Carbon Dioxide 24 Anion Gap 7 BUN 5 L Creatinine 0.87 Est GFR ( Amer) > 60 Est GFR (Non-Af Amer) > 60 Glucose 92 Calcium 8.0 L Magnesium 1.3 L Total Bilirubin 0.3 AST 42 ALT 37 Alkaline Phosphatase 57 Total Protein 5.1 L Albumin 2.2 L 05/05/17 05/05/17 05/05/17 17:15 17:15 23:30 Creatine Kinase 123 160 CK-MB (CK-2) 3.17 Troponin I 0.312 05/05/17 05/06/17 05/06/17 23:30 04:35 04:35 Creatine Kinase 207 H CK-MB (CK-2) 4.65 H 4.97 H Troponin I 0.432 0.375 05/08/17 05/08/17 05/09/17 12:00 12:00 06:15 Creatine Kinase 186 H 197 H CK-MB (CK-2) 0.65 Troponin I 0.060 05/09/17 06:15 Creatine Kinase CK-MB (CK-2) 0.75 Troponin I 0.056 Impressions: Head CT 05/05/17 12:43 IMPRESSION: MILD CHRONIC CHANGES OF ATROPHY AND MICROVASCULAR ISCHEMIA. NO ACUTE PROCESS. KUB X-Ray 05/05/17 13:59 IMPRESSION: NG tube appears to be in satisfactory position. Mild small-bowel distention as described. 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 There is no plain film evidence for bony involvement by osteomyelitis. Other findings as noted above Assessment & Plan - Diagnosis (1) Lactic acidosis Is this a current diagnosis for this admission?: Yes (2) Septic shock Is this a current diagnosis for this admission?: No (3) Unresponsive episode Is this a current diagnosis for this admission?: Yes Plan: improving (4) Leg abrasion, infected Qualifiers: Laterality: left Is this a current diagnosis for this admission?: Yes - Time Critical Time spent with patient: 25-34 minutes
--- NOTE | 2017-05-12 15:31 | RADIOLOGY REPORT (SQ) ---
EXAM DESCRIPTION: CHEST SINGLE VIEW COMPLETED DATE/TIME: 05/11/2017 6:39 am REASON FOR STUDY: Respiratory failure COMPARISON: AP chest 05/10/2017, 05/09/2017, 05/07/2017, 05/06/2017 TECHNIQUE: AP portable chest 05/11/2017, 607 hours LIMITATIONS: None FINDINGS: Endotracheal tube tip midtrachea. Nasogastric tube tip and side port below the hemidiaphr agms. Right jugular central line tip superior vena cava. Unchanged left-sided dual lead pacemaker Small right trace left pleural effusions, new compared to 05/09/2017, similar compared to 05/10/2017. Mild bibasilar atelectasis. No fluffy alveolar infiltrates worrisome for edema or pneumonia. No cardiomegaly. Coronary stents. IMPRESSION: Tubes and lines in good positioning. Small right, trace left pleural effusions with minimal bibasilar atelectasis.
--- NOTE | 2017-05-12 16:27 | PDOC PROGRESS REPORT ---
Subjective Progress Note for:: 05/12/17 Subjective:: Patient remain intubated, vent supported, awake and following commands presently. Extubation not carried out today due to excessive fatigue. Patient did not sleep overnight off sedation therapy. Tolerating enteral tube feeding. Remain on IV Clindamycin, Vancomycin and Zosyn. No reported fever. Physical Exam Vital Signs: Temp Pulse Resp BP Pulse Ox 99.3 F 80 22 H 128/89 H 98 05/12/17 12:00 05/12/17 14:00 05/12/17 14:23 05/12/17 14:23 05/12/17 14:23 Intake & Output 05/11/17 05/12/17 05/13/17 06:59 06:59 06:59 Intake Total 4278 3135 Output Total 3285 4175 750 Balance 993 -1040 -750 Weight 67.5 kg 72.6 kg Physical Exam: ET and NG tubes in situ. Head exam: PRESENT: atraumatic, normocephalic Eye exam: PRESENT: conjunctiva pink, EOMI, PERRLA. ABSENT: scleral icterus Mouth exam: PRESENT: moist Respiratory exam: PRESENT: clear to auscultation srikanth, decreased breath sounds - at lung bases Cardiovascular exam: PRESENT: RRR - monitor revealed pacemaker rhythm. ABSENT: diastolic murmur, rubs, systolic murmur GI/Abdominal exam: PRESENT: normal bowel sounds, soft. ABSENT: distended, guarding, mass, organomegaly, rebound, tenderness Extremities exam: PRESENT: left AKA. ABSENT: pedal edema Neurological exam: PRESENT: altered - sedated Skin exam: PRESENT: dry, warm. Anat in situ. Wound dressing satisfactory. Results Laboratory Results: 05/12/17 05:00 05/12/17 14:40 05/12/17 05/12/17 05/12/17 05:00 05:00 05:00 WBC 7.4 RBC 3.15 L Hgb 8.4 L Hct 26.3 L MCV 84 MCH 26.7 L MCHC 32.0 RDW 18.4 H Plt Count 121 L Seg Neutrophils % 71.8 Lymphocytes % 13.1 Monocytes % 12.7 Eosinophils % 1.9 Basophils % 0.5 Absolute Neutrophils 5.3 Absolute Lymphocytes 1.0 Absolute Monocytes 0.9 Absolute Eosinophils 0.1 Absolute Basophils 0.0 Carbonic Acid 1.00 L HCO3/H2CO3 Ratio 22:1 ABG pH 7.45 ABG pCO2 33.1 L ABG pO2 78.3 L ABG HCO3 22.5 ABG O2 Saturation 96.2 ABG Base Excess -1.0 FiO2 21% Sodium 144.5 Potassium 3.1 L Chloride 114 H Carbon Dioxide 24 Anion Gap 7 BUN 5 L Creatinine 0.87 Est GFR ( Amer) > 60 Est GFR (Non-Af Amer) > 60 Glucose 92 Calcium 8.0 L Magnesium 1.3 L Total Bilirubin 0.3 AST 42 ALT 37 Alkaline Phosphatase 57 Total Protein 5.1 L Albumin 2.2 L 05/12/17 14:40 WBC RBC Hgb Hct MCV MCH MCHC RDW Plt Count Seg Neutrophils % Lymphocytes % Monocytes % Eosinophils % Basophils % Absolute Neutrophils Absolute Lymphocytes Absolute Monocytes Absolute Eosinophils Absolute Basophils Carbonic Acid HCO3/H2CO3 Ratio ABG pH ABG pCO2 ABG pO2 ABG HCO3 ABG O2 Saturation ABG Base Excess FiO2 Sodium Potassium 3.2 L Chloride Carbon Dioxide Anion Gap BUN Creatinine Est GFR ( Amer) Est GFR (Non-Af Amer) Glucose Calcium Magnesium Total Bilirubin AST ALT Alkaline Phosphatase Total Protein Albumin 05/05/17 05/05/17 05/05/17 17:15 17:15 23:30 Creatine Kinase 123 160 CK-MB (CK-2) 3.17 Troponin I 0.312 05/05/17 05/06/17 05/06/17 23:30 04:35 04:35 Creatine Kinase 207 H CK-MB (CK-2) 4.65 H 4.97 H Troponin I 0.432 0.375 05/08/17 05/08/17 05/09/17 12:00 12:00 06:15 Creatine Kinase 186 H 197 H CK-MB (CK-2) 0.65 Troponin I 0.060 05/09/17 06:15 Creatine Kinase CK-MB (CK-2) 0.75 Troponin I 0.056 Impressions: Head CT 05/05/17 12:43 IMPRESSION: MILD CHRONIC CHANGES OF ATROPHY AND MICROVASCULAR ISCHEMIA. NO ACUTE PROCESS. KUB X-Ray 05/05/17 13:59 IMPRESSION: NG tube appears to be in satisfactory position. Mild small-bowel distention as described. 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 There is no plain film evidence for bony involvement by osteomyelitis. Other findings as noted above Chest X-Ray 05/11/17 06:00 IMPRESSION: Tubes and lines in good positioning. Small right, trace left pleural effusions with minimal bibasilar atelectasis. Assessment & Plan - Diagnosis (1) Pseudomonal sepsis Is this a current diagnosis for this admission?: Yes Plan: Continue on current antibiotic therapy. Prognosis remain guarded. (2) Leg abrasion, infected Qualifiers: Laterality: left Is this a current diagnosis for this admission?: Yes Plan: Continue antibiotic coverage. (3) Acute respiratory failure with hypercapnia Is this a current diagnosis for this admission?: Yes Plan: Continue ventilatory support. Technical Applications Specialist input appreciated. (4) Hypokalemia due to inadequate potassium intake Is this a current diagnosis for this admission?: Yes Plan: Patient will receive potassium supplementation. Monitor serum K+ level. Obtain magnesium level. - Time Time Spent with patient: 25-34 minutes Medications reviewed and adjusted accordingly: Yes Anticipated discharge: SNF - Inpatient Certification Based on my medical assessment, after consideration of the patient's comorbidities, presenting symptoms, or acuity I expect that the services needed warrant INPATIENT care.: Yes I certify that my determination is in accordance with my understanding of Medicare's requirements for reasonable and necessary INPATIENT services [42 CFR 412.3e].: Yes Medical Necessity: Need Close Monitoring Due to Risk of Patient Decompensation, Need For IV Fluids, Need For Continuous Telemetry Monitoring, Need for IV Antibiotics, Risk of Complication if Not Cared For in Hospital Post Hospital Care: D/C or Transfer Summary - Plan Summary Plan Summary: Continue current medication management and ventilator support. Possible extubation if his clinical condition continue to improve.
[2017-05-12] MEDS ORDERED: ACETAMINOPHEN 325 MG TABLET NG PRN (16:29)
[2017-05-13] MEDS: PIPERACILLIN SODIUM/TAZOBACTAM 3.375 GM in NORMAL SALINE 100 ML IV SCH ×3 (00:45→17:35)
[2017-05-13] MEDS: POTASSIUM CHLORIDE 20 MEQ/50 ML RTU IV SCH ×2 (01:04→03:34)
[2017-05-13] MEDS: NORMAL SALINE 1000 ML 1,000 ML IV PRN ×2 (04:55→18:09)
[2017-05-13] MEDS: HEPARIN SOD (PORCINE) 5,000 UNIT/ML 1 ML SYRINGE SUBCUT SCH (05:53)
[2017-05-13] MEDS: LANSOPRAZOLE 30 MG TAB.RAP.DR PO SCH ×2 (05:53→18:04)
[2017-05-13] MEDS: VANCOMYCIN HCL 750 MG in DEXTROSE 5%-WATER 250 ML IV SCH ×2 (05:54→18:06)
[2017-05-13 06:52] LABS: ABSOLUTE BASOPHILS # (AUTO) 0.1 10^3/uL (0.0-0.2); ABSOLUTE EOSINOPHILS # (AUTO) 0.2 10^3/uL (0.0-0.6); ABSOLUTE LYMPHOCYTES (AUTO) 0.7 10^3/uL (0.5-4.7); ABSOLUTE MONOCYTES (AUTO) 0.8 10^3/uL (0.1-1.4); ABSOLUTE NEUT (AUTO) 4.5 10^3/uL (1.7-8.2); EOSINOPHILS % (AUTO) 3.3 % (0-6); HEMATOCRIT 26.4 % (37.9-51.0); HEMOGLOBIN 8.5 g/dL (13.5-17.0); HGB HCT DIFFERENCE -0.9; LYMPHOCYTES % (AUTO) 11.4 % (13-45); MEAN CORPUSCULAR HEMOGLOBIN 27.1 pg (27.0-33.4); MEAN CORPUSCULAR HGB CONC 32.3 g/dL (32.0-36.0); MEAN CORPUSCULAR VOLUME 84 fl (80-97); MONOCYTES % (AUTO) 12.8 % (3-13); RED BLOOD COUNT 3.15 10^6/uL (4.35-5.55); RED CELL DISTRIBUTION WIDTH 18.7 % (11.5-14.0); SEGMENTED NEUTROPHILS % (AUTO) 71.5 % (42-78); WHITE BLOOD COUNT 6.3 10^3/uL (4.0-10.5)
[2017-05-13 06:55] LABS: ARTERIAL BLOOD BASE EXCESS 0.1 mmol/L; ARTERIAL BLOOD O2 SATURATION 96.8 % (94-98)
[2017-05-13 07:11] LABS: BLOOD UREA NITROGEN 6 mg/dL (7-20); CALCIUM 7.8 mg/dL (8.4-10.2); CREATININE RESULT 0.86 mg/dL (0.52-1.25); GLUCOSE 146 mg/dL (75-110); MAGNESIUM 1.5 mg/dL (1.6-2.3); POTASSIUM 3.8 mmol/L (3.6-5.0)
[2017-05-13 07:23] LABS: ANION GAP 5 (5-19); CARBON DIOXIDE 24 mmol/L (22-30); CHLORIDE 112 mmol/L (98-107); SODIUM 140.7 mmol/L (137-145)
--- NOTE | 2017-05-13 07:27 | RADIOLOGY REPORT (SQ) ---
EXAM DESCRIPTION: CHEST SINGLE VIEW COMPLETED DATE/TIME: 05/13/2017 6:39 am REASON FOR STUDY: alt mental status COMPARISON: 05/11/2017. EXAM PARAMETERS: NUMBER OF VIEWS: One view. TECHNIQUE: Single frontal radiographic view of the chest acquired. RADIATION DOSE: NA LIMITATIONS: None. FINDINGS: LUNGS AND PLEURA: [id number] mixed interstitial and airspace opacity of both lung fi elds, small bibasilar haziness-layered effusion. MEDIASTINUM AND HILAR STRUCTURES: No masses. Contour normal. HEART AND VASCULAR STRUCTURES: Borderline cardiac silhouette. BONES: No acute findings. HARDWARE: Left cardiac stimulation device and leads. Likely adequate endotracheal tube. Right inter nal jugular central line tip at the inferior cavoatrial junction. OTHER: No other significant finding. IMPRESSION: No significant interval change. TECHNICAL DOCUMENTATION: JOB ID: [id number]
[2017-05-13] MEDS: MAGNESIUM SULFATE 1 GM in D5W 100 ML IV SCH ×2 (08:51→09:53)
--- NOTE | 2017-05-13 09:01 | PDOC PROGRESS REPORT ---
Subjective Progress Note for:: 05/13/17 Subjective:: This is a 76-year-old male was admitted for the unresponsive and the Pseudomonas sepsis and respiratory failure and currently still intubated. No fever no other events happen patient still currently on vent Physical Exam Vital Signs: Temp Pulse Resp BP Pulse Ox 99.7 F 78 12 126/77 H 97 05/13/17 08:00 05/13/17 08:00 05/13/17 08:00 05/13/17 08:00 05/13/17 08:00 Intake & Output 05/12/17 05/13/17 05/14/17 06:59 06:59 06:59 Intake Total 3135 3567 Output Total 4175 1340 75 Balance -1040 2227 -75 Weight 72.6 kg 74.7 kg Physical Exam: Currently intubated General appearance: PRESENT: no acute distress Eye exam: PRESENT: PERRLA Mouth exam: PRESENT: dry mucosa Neck exam: ABSENT: JVD Respiratory exam: PRESENT: clear to auscultation srikanth Cardiovascular exam: PRESENT: +S1, +S2 GI/Abdominal exam: PRESENT: normal bowel sounds, soft Extremities exam: PRESENT: left BKA Neurological exam: PRESENT: alert Results Laboratory Results: 05/13/17 06:40 05/13/17 06:40 05/12/17 05/13/17 05/13/17 14:40 00:15 06:40 WBC RBC Hgb Hct MCV MCH MCHC RDW Plt Count Seg Neutrophils % Lymphocytes % Monocytes % Eosinophils % Basophils % Absolute Neutrophils Absolute Lymphocytes Absolute Monocytes Absolute Eosinophils Absolute Basophils Carbonic Acid 1.00 L HCO3/H2CO3 Ratio 23:1 ABG pH 7.47 H ABG pCO2 33.3 L ABG pO2 83.0 ABG HCO3 23.5 ABG O2 Saturation 96.8 ABG Base Excess 0.1 FiO2 21% Sodium Potassium 3.2 L 3.4 L Chloride Carbon Dioxide Anion Gap BUN Creatinine Est GFR ( Amer) Est GFR (Non-Af Amer) Glucose Calcium Magnesium 05/13/17 05/13/17 06:40 06:40 WBC 6.3 RBC 3.15 L Hgb 8.5 L Hct 26.4 L MCV 84 MCH 27.1 MCHC 32.3 RDW 18.7 H Plt Count 124 L Seg Neutrophils % 71.5 Lymphocytes % 11.4 L Monocytes % 12.8 Eosinophils % 3.3 Basophils % 1.0 Absolute Neutrophils 4.5 Absolute Lymphocytes 0.7 Absolute Monocytes 0.8 Absolute Eosinophils 0.2 Absolute Basophils 0.1 Carbonic Acid HCO3/H2CO3 Ratio ABG pH ABG pCO2 ABG pO2 ABG HCO3 ABG O2 Saturation ABG Base Excess FiO2 Sodium 140.7 Potassium 3.8 Chloride 112 H Carbon Dioxide 24 Anion Gap 5 BUN 6 L Creatinine 0.86 Est GFR ( Amer) > 60 Est GFR (Non-Af Amer) > 60 Glucose 146 H Calcium 7.8 L Magnesium 1.5 L 05/05/17 05/05/17 05/05/17 17:15 17:15 23:30 Creatine Kinase 123 160 CK-MB (CK-2) 3.17 Troponin I 0.312 05/05/17 05/06/17 05/06/17 23:30 04:35 04:35 Creatine Kinase 207 H CK-MB (CK-2) 4.65 H 4.97 H Troponin I 0.432 0.375 05/08/17 05/08/17 05/09/17 12:00 12:00 06:15 Creatine Kinase 186 H 197 H CK-MB (CK-2) 0.65 Troponin I 0.060 05/09/17 06:15 Creatine Kinase CK-MB (CK-2) 0.75 Troponin I 0.056 Impressions: Head CT 05/05/17 12:43 IMPRESSION: MILD CHRONIC CHANGES OF ATROPHY AND MICROVASCULAR ISCHEMIA. NO ACUTE PROCESS. KUB X-Ray 05/05/17 13:59 IMPRESSION: NG tube appears to be in satisfactory position. Mild small-bowel distention as described. 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 There is no plain film evidence for bony involvement by osteomyelitis. Other findings as noted above Chest X-Ray 05/13/17 06:00 IMPRESSION: No significant interval change. Assessment & Plan - Diagnosis (1) Acute respiratory failure with hypercapnia Is this a current diagnosis for this admission?: Yes Plan: Currently intubated follow with the pulmonary (2) Lactic acidosis Is this a current diagnosis for this admission?: Yes Plan: All resolved (3) Pseudomonal sepsis Is this a current diagnosis for this admission?: Yes Plan: Continues to IV Zosyn and the vancomycin (4) Septic shock Is this a current diagnosis for this admission?: No Plan: Is all improving - Time Time Spent with patient: 15-24 minutes Medications reviewed and adjusted accordingly: Yes Anticipated discharge: Other Within: Other - Inpatient Certification Based on my medical assessment, after consideration of the patient's comorbidities, presenting symptoms, or acuity I expect that the services needed warrant INPATIENT care.: Yes I certify that my determination is in accordance with my understanding of Medicare's requirements for reasonable and necessary INPATIENT services [42 CFR 412.3e].: Yes Medical Necessity: Need for IV Antibiotics Post Hospital Care: D/C Pension Examiner Documentation - Plan Summary Plan Summary: Continues to IV Zosyn and vancomycin coverage continue some Lasix follow with the pulmonary place the magnesium
[2017-05-13] MEDS: COLLAGENASE CLOSTRIDIUM HIST. OINT 30 GM TOP SCH ×2 (09:52→18:06)
[2017-05-13] MEDS: FUROSEMIDE INJ/PF 20 MG/2 ML SDV IV SCH ×2 (09:52→21:14)
[2017-05-13] MEDS ORDERED: LORAZEPAM INJ 2 MG/1 ML VIAL ONE (10:35)
[2017-05-13] MEDS ORDERED: DILTIAZEM HCL/D5W 125 MG/125 ML RTUINJ IV ONE (10:43)
[2017-05-13] MEDS ORDERED: DILTIAZEM HCL INJ 25 MG/5 ML VIAL ONE (10:43)
[2017-05-13] MEDS ORDERED: FUROSEMIDE INJ/PF 40 MG/4 ML SDV ONE (11:05)
[2017-05-13] MEDS ORDERED: PROPOFOL 100 ML IV ONE (11:06)
[2017-05-13 11:08] LABS: ARTERIAL BLOOD BASE EXCESS -5.8 mmol/L; ARTERIAL BLOOD O2 SATURATION 92.7 % (94-98)
[2017-05-13] MEDS ORDERED: AMIODARONE HCL INJ 150 MG/3 ML VIAL IV ONE ×3 (11:14→11:50)
--- NOTE | 2017-05-13 11:15 | RADIOLOGY REPORT (SQ) ---
EXAM DESCRIPTION: CHEST SINGLE VIEW COMPLETED DATE/TIME: 05/13/2017 11:02 am REASON FOR STUDY: Respiratory distress COMPARISON: 05/13/2017 NUMBER OF VIEWS: One view. TECHNIQUE: Single frontal radiographic view of the chest acquired. LIMITATIONS: None. FINDINGS: LUNGS AND PLEURA: Increasing patchy multifocal airspace disease suggestive of pulmonary ed alfie. Small to moderate right pleural effusion and small left pleural effusion. MEDIASTINUM AND HILAR STRUCTURES: No masses or contour abnormality. HEART AND VASCULATURE: Cardiac enlargement. Vascular congestion. BONES: No acute findings. HARDWARE: Stable. OTHER: No other significant finding. IMPRESSION: FINDINGS COMPATIBLE WITH WORSENING PULMONARY EDEMA AND RIGHT GREATER THAN LEFT PLEURAL E FFUSIONS. TECHNICAL DOCUMENTATION: JOB ID: [id number] [employer]- All Rights Reserved
[2017-05-13 11:20] LABS: ANION GAP 12 (5-19); BLOOD UREA NITROGEN 6 mg/dL (7-20); CALCIUM 8.2 mg/dL (8.4-10.2); CARBON DIOXIDE 19 mmol/L (22-30); CHLORIDE 110 mmol/L (98-107); CREATINE KINASE 129 U/L (55-170); CREATININE RESULT 0.94 mg/dL (0.52-1.25); GLUCOSE 231 mg/dL (75-110); POTASSIUM 3.7 mmol/L (3.6-5.0); SODIUM 140.8 mmol/L (137-145)
[2017-05-13 11:31] LABS: MAGNESIUM 2.5 mg/dL (1.6-2.3)
[2017-05-13 11:32] LABS: CREATINE KINASE MB 0.67 ng/mL (<4.55); TROPONIN I 0.039 ng/mL
[2017-05-13] MEDS ORDERED: NOREPINEPHRINE BITARTRATE INJ/PF 4 MG/4 ML SDV IV ONE (11:37)
[2017-05-13] MEDS ORDERED: DEXTROSE 5%-WATER 500 ML with AMIODARONE HCL 900 MG IV PRN ×2 (11:55)
[2017-05-13] MEDS ORDERED: ENOXAPARIN SODIUM INJ 60 MG/0.6 ML DISP.SYRIN SUBCUT ONE (12:00)
[2017-05-13] MEDS ORDERED: ENOXAPARIN SODIUM INJ 30 MG/0.3 ML DISP.SYRIN IV ONE (12:00)
--- NOTE | 2017-05-13 12:42 | PROGRESS NOTE E ---
Progress Note NAME: MOHAN BALLESTEROS : 1940 AGE: 76Y DATE: 05/13/2017 ROOM: 609 CRITICAL CARE NOTE: This is a 76-year-old patient who apparently was doing well this morning, but nursing from ICU called that the patient has been started to wean off. The patient is getting tachycardic and in more respiratory distress. The patient initially was given Cardizem and the patient's blood pressure was getting lower also. The patient at that time seen by myself and Dr. Rizzo, the radio director, and was given some amiodarone and IV fluids and then stabilized the patient currently. The patient's chest x-ray showed most likely a pulmonary edema and given IV Lasix. At this point the patient's initial chemistry was sodium 140, potassium 3.7, the patient's troponin is also 0.039. The patient at this point continues the current supportive measures. She was given some Levophed drip for maintaining the blood pressure. The patient at this point we will order the CT angiogram to rule out any PE and do serial cardiac enzymes and stat echocardiogram ordered by Dr. Rizzo. Again, the patient's overall prognosis is poor. We will continue the IV Zosyn and vancomycin. I discussed with the family about the patient's poor prognosis in the ICU. We will hope the patient continues to be improved. More than 45 minutes spent examining the patient in the ICU and discussed with the family. DICTATING PHYSICIAN: IVAN LANDRUM M.D. [id number] PHY#: [id number] ID: [id number] JOB#: [id number] ACCT: [id number] cc: >
[2017-05-13] MEDS ORDERED: LORAZEPAM INJ 2 MG/1 ML VIAL IV PRN (13:32)
--- NOTE | 2017-05-13 15:04 | XCELERA REPORT ---
[address] [address] Transthoracic Echocardiogram Report Name: MOHAN BALLESTEROS JR Age: 76 yrs Gender: Male : 1940 Patient Status: Inpatient Patient Location: ICU^609^A Study Date: 05/13/2017 01:20 PM Height: 69 in Weight: 164 lb BSA: 1.9 m2 Procedure: A complete two-dimensional transthoracic echocardiogram was performed (2D, M-mode, spectral and color flow Doppler). The study was technically difficult with many images being suboptimal in quality. Reason For Study: cad/chf Ordering Physician: IVAN LANDRUM Performed By: Nazario Ferrari Interpretation Summary The study was technically difficult with many images being suboptimal in quality. The Ejection Fraction estimate is 25-30% Left ventricular systolic function is severely reduced. There is borderline concentric left ventricular hypertrophy. The left ventricle is mildly dilated. Doppler measurements suggest pseudonormalized left ventricular relaxation, which is associated with grade II/IV or mild to moderate diastolic dysfunction There is mid to distal anterior wall akinesis There is apical wall akinesis The right ventricular systolic function is normal. The left atrium is moderately dilated. The right atrium is normal in size There is a mild amount of mitral regurgitation There is no mitral valve stenosis. No aortic regurgitation is present. There is no aortic valve stenosis There is a trace to mild amount of tricuspid regurgitation There is mild to moderate pulmonary hypertension by echo Right ventricular systolic pressure is estimated to be elevated at 40- 50mmHg. The aortic root is not well visualized. The inferior vena cava appeared dilated and decreased < 50% with respiration (RAP 15-20 mmHg) There is no pericardial effusion. MMode/2D Measurements & Calculations RVDd: 2.0 cm LVIDd: 5.9 cm FS: 20.1 % Ao root diam: IVSd: 0.66 cm LVIDs: 4.7 cm EDV(Teich): 3.2 cm LVPWd: 0.72 cm 174.9 ml Ao root area: ESV(Teich): 104.1 ml 8.1 cm2 EF(Teich): 40.5 % LVLd ap4: 7.7 cm SV(MOD-sp4): EDV(MOD-sp4): 39.0 ml 118.0 ml LVLs ap4: 7.4 cm ESV(MOD-sp4): 79.0 ml EF(MOD-sp4): 33.1 % Doppler Measurements & Calculations MV E max isidra: MV P1/2t max isidra: Ao V2 max: LV V1 max P.4 cm/sec 62.7 cm/sec 98.0 cm/sec 3.6 mmHg MV A max isidra: MV P1/2t: 59.8 msec Ao max PG: LV V1 max: 32.6 cm/sec 3.8 mmHg 94.9 cm/sec MV E/A: 1.9 MVA(P1/2t): 3.7 cm2 MV dec slope: 307.4 cm/sec2 PA V2 max: TR max isidra: RAP systole: 72.6 cm/sec 237.0 cm/sec 10.0 mmHg PA max PG: TR max P.5 mmHg 2.1 mmHg RVSP(TR): 32.5 mmHg Left Ventricle The left ventricle is mildly dilated. There is borderline concentric left ventricular hypertrophy. Left ventricular systolic function is severely reduced. The Ejection Fraction estimate is 25-30%. Doppler measurements suggest pseudonormalized left ventricular relaxation, which is associated with grade II/IV or mild to moderate diastolic dysfunction. There is mid to distal anterior wall akinesis. There is apical wall akinesis. Right Ventricle The right ventricle is grossly normal size. There is normal right ventricular wall thickness. The right ventricular systolic function is normal. Atria The right atrium is normal in size. The left atrium is moderately dilated. Interarterial septum not well visualized and not well dopplered. Cannot comment on ASD/PFO presence. Mitral Valve The mitral valve leaflets are sclerotic, but show no functional abnormalities. There is no mitral valve stenosis. There is a mild amount of mitral regurgitation. Aortic Valve The aortic valve is sclerotic, but shows no functional abnormality. There is no aortic valve stenosis. No aortic regurgitation is present. Tricuspid Valve The tricuspid valve is not well visualized secondary to technical limitations. There is no tricuspid stenosis. There is a trace to mild amount of tricuspid regurgitation. There is mild to moderate pulmonary hypertension by echo. Right ventricular systolic pressure is estimated to be elevated at 40-50mmHg. Pulmonic Valve The pulmonic valve is not well visualized. Great Vessels The aortic root is not well visualized. The inferior vena cava appeared dilated and decreased < 50% with respiration (RAP 15-20 mmHg). Effusions There is no pericardial effusion. : IVAN LANDRUM > Wilder Rizzo
--- NOTE | 2017-05-13 15:59 | PDOC CONSULTATION ---
Consultation Consult Date: 05/13/17 Attending physician:: IVAN LANDRUM Consult reason:: Tachycardia and respiratory distress History of Present Illness Admission Date/PCP: 05/05/17 14:45 Patient complains of: Patient is intubated and sedated History of Present Illness: MOHAN BALLESTEROS JR is a 76 year old male found unresponsive hypoxic, unarousable ; 3 weels s/p discharged from hospital out of town wher he had complicated course DVT, infection leading to a L bka. Patient has been recuperating in the intensive care unit. This morning while there was an attempt to wean patient off the ventilator, patient was noted to go into sudden respiratory distress and also become intermittently severely tachycardic. He was noted to have both atrial fibrillation with rapid ventricular response and also nonsustained multiple runs of wide-complex tachycardia. I saw 1 paced termination from his internal defibrillator in the unit. Patient cannot give any history. Past Medical History Cardiac Medical History: Reports: Atrial Fibrillation, Myocardial Infarction, Hyperlipidema, Hypertension, Peripheral Vascular Disease Past Surgical History Past Surgical History: Reports: Vascular Surgery, Other - Status post amputation left lower extremity. Social History Information Source: [facility] Records Smoking Status: Former Smoker - Advance Directive Resuscitation Status: Do Not Resuscitate Surrogate healthcare decision maker:: Patient's daughter Family History Family History: Reviewed & Not Pertinent, CAD, Hypertension Parental Family History Reviewed: Yes Children Family History Reviewed: Yes Sibling(s) Family History Reviewed.: Yes Medication/Allergy Home Medications: Acetaminophen [Tylenol 325 mg Tablet] 650 mg PO Q4HP PRN 05/05/17 Apixaban [Eliquis 5 mg Tablet] 5 mg PO Q12 05/05/17 Aspirin [Aspirin 81 mg Chewable Tablet] 81 mg PO DAILY 05/05/17 Atorvastatin Calcium [Lipitor 40 mg Tablet] 40 mg PO DAILY 05/05/17 Carvedilol [Coreg 3.125 mg Tablet] 3.125 mg PO Q12 05/05/17 Clopidogrel Bisulfate [Plavix 75 mg Tablet] 75 mg PO DAILY 05/05/17 Furosemide [Lasix] 40 mg PO DAILY 05/05/17 Polyethylene Glycol 3350 [Miralax Powder 17 gm/Packet] 17 gm PO DAILY 05/05/17 Potassium Chloride [K-Tab ER] 20 meq PO DAILY 05/05/17 Tamsulosin HCl [Flomax 0.4 mg Cap.sr] 0.4 mg PO DAILY 05/05/17 Tramadol HCl [Ultram 50 mg Tablet] 50 mg PO Q4HP PRN 05/05/17 Allergies/Adverse Reactions: No Known Allergies Allergy (Verified 02/07/17 12:26) Review of Systems ROS unobtainable: Due to endotracheal tube Physical Exam Vital Signs: Temp Pulse Resp BP Pulse Ox 98.2 F 64 19 119/76 100 05/13/17 14:00 05/13/17 14:00 05/13/17 14:15 05/13/17 14:15 05/13/17 14:15 Intake & Output 05/12/17 05/13/17 05/14/17 06:59 06:59 06:59 Intake Total 3135 3567 Output Total 4175 1340 1700 Balance -1040 2227 -1700 Weight 72.6 kg 74.7 kg Exam: GENERAL: well-nourished and in no acute distress. Patient is intubated and sedated. Orientation cannot be checked HEAD: Atraumatic, normocephalic. EYES: Pupils equal round and reactive to light, extraocular movements could not be checked, sclera anicteric, conjunctiva are normal. ENT: TMs normal, nares patent, oropharynx clear without exudates. Moist mucous membranes. No oral ulcerations or bleeding gums noted NECK: supple without lymphadenopathy or JVD. Trachea is central. No cervical or axillary lymphadenopathy noted. Carotids are 2+ LUNGS: Breath sounds mostly clear to auscultation patient is noted to have bibasal crackles at the bases. Bibasilar wheezing noted. CHEST: Palpation of the chest wall shows no significant chest wall tenderness or abnormalities. HEART: [place] [employer], No PSH, 2/6 CYNDIE aortic area, 1/6 reyna systolic murmur mitral area , no rubs or gallops. ABDOMEN: Soft, no significant tenderness appreciated, normoactive bowel sounds. No guarding, no rebound. No rigidity noted . No masses appreciated. EXTREMITIES: Pedal pulses are 1-2+, no calf tenderness noted, 1+ pedal edema noted. No clubbing or cyanosis. 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 NEUROLOGICAL: The patient cannot participate in the neurological exam but no facial asymmetry noted. Extremities slightly hypotonic PSYCH: This cannot be evaluated. Patient cannot participate. SKIN: No significant ecchymosis, rash, or signs of pruritus noted. MUSCULOSKELETAL EXAM: No significant joint swelling noted. Patient cannot participate in musculoskeletal exam Results Laboratory Results: 05/13/17 06:40 05/13/17 10:50 05/13/17 05/13/17 05/13/17 00:15 06:40 06:40 WBC RBC Hgb Hct MCV MCH MCHC RDW Plt Count Seg Neutrophils % Lymphocytes % Monocytes % Eosinophils % Basophils % Absolute Neutrophils Absolute Lymphocytes Absolute Monocytes Absolute Eosinophils Absolute Basophils Carbonic Acid 1.00 L HCO3/H2CO3 Ratio 23:1 ABG pH 7.47 H ABG pCO2 33.3 L ABG pO2 83.0 ABG HCO3 23.5 ABG O2 Saturation 96.8 ABG Base Excess 0.1 FiO2 21% Sodium 140.7 Potassium 3.4 L 3.8 Chloride 112 H Carbon Dioxide 24 Anion Gap 5 BUN 6 L Creatinine 0.86 Est GFR ( Amer) > 60 Est GFR (Non-Af Amer) > 60 Glucose 146 H Calcium 7.8 L Magnesium 1.5 L 05/13/17 05/13/17 05/13/17 06:40 10:50 10:50 WBC 6.3 RBC 3.15 L Hgb 8.5 L Hct 26.4 L MCV 84 MCH 27.1 MCHC 32.3 RDW 18.7 H Plt Count 124 L Seg Neutrophils % 71.5 Lymphocytes % 11.4 L Monocytes % 12.8 Eosinophils % 3.3 Basophils % 1.0 Absolute Neutrophils 4.5 Absolute Lymphocytes 0.7 Absolute Monocytes 0.8 Absolute Eosinophils 0.2 Absolute Basophils 0.1 Carbonic Acid 1.23 HCO3/H2CO3 Ratio 16:1 ABG pH 7.31 L ABG pCO2 41.0 ABG pO2 70.4 L ABG HCO3 20.1 ABG O2 Saturation 92.7 L ABG Base Excess -5.8 FiO2 100% Sodium 140.8 Potassium 3.7 Chloride 110 H Carbon Dioxide 19 L Anion Gap 12 BUN 6 L Creatinine 0.94 Est GFR ( Amer) > 60 Est GFR (Non-Af Amer) > 60 Glucose 231 H Calcium 8.2 L Magnesium 2.5 H D 05/05/17 05/05/17 05/05/17 17:15 17:15 23:30 Creatine Kinase 123 160 CK-MB (CK-2) 3.17 Troponin I 0.312 NT-Pro-B Natriuret Pep 05/05/17 05/06/17 05/06/17 23:30 04:35 04:35 Creatine Kinase 207 H CK-MB (CK-2) 4.65 H 4.97 H Troponin I 0.432 0.375 NT-Pro-B Natriuret Pep 05/08/17 05/08/17 05/09/17 12:00 12:00 06:15 Creatine Kinase 186 H 197 H CK-MB (CK-2) 0.65 Troponin I 0.060 NT-Pro-B Natriuret Pep 05/09/17 05/13/17 05/13/17 06:15 10:50 10:50 Creatine Kinase 129 CK-MB (CK-2) 0.75 0.67 Troponin I 0.056 0.039 NT-Pro-B Natriuret Pep 30319 H EKG Comments: Sinus tachycardia, probable anterior AZ age indeterminate. No acute ST segment changes noted. Impressions: Head CT 05/05/17 12:43 IMPRESSION: MILD CHRONIC CHANGES OF ATROPHY AND MICROVASCULAR ISCHEMIA. NO ACUTE PROCESS. KUB X-Ray 05/05/17 13:59 IMPRESSION: NG tube appears to be in satisfactory position. Mild small-bowel distention as described. 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 There is no plain film evidence for bony involvement by osteomyelitis. Other findings as noted above Chest X-Ray 05/13/17 06:00 IMPRESSION: No significant interval change. Status: Image reviewed by al - Chest x-ray reviewed. Consistent with pulmonary edema and also pneumonia. Patient is noted to have a dual-chamber defibrillator in place Assessment & Plan - Diagnosis (1) Acute respiratory failure Qualifiers: Respiratory failure complication: unspecified whether with hypoxia or hypercapnia Qualified Code(s): J96.00 - Acute respiratory failure, unspecified whether with hypoxia or hypercapnia Is this a current diagnosis for this admission?: Yes (2) Coronary artery disease Qualifiers: Coronary Disease-Associated Artery/Lesion type: unspecified vessel or lesion type Associated angina: angina presence unspecified Is this a current diagnosis for this admission?: Yes (3) Pulmonary edema Qualifiers: Chronicity: acute Qualified Code(s): J81.0 - Acute pulmonary edema Is this a current diagnosis for this admission?: Yes (4) Pneumonia Qualifiers: Pneumonia type: due to unspecified organism Lung location: unspecified part of lung Is this a current diagnosis for this admission?: Yes (5) Hypotension Qualifiers: Hypotension type: unspecified hypotension type Qualified Code(s): I95.9 - Hypotension, unspecified Is this a current diagnosis for this admission?: Yes (6) Ventricular tachycardia Is this a current diagnosis for this admission?: Yes (7) Atrial fibrillation with RVR Is this a current diagnosis for this admission?: Yes (8) Peripheral vascular disease Is this a current diagnosis for this admission?: Yes - Notes Notes: Acute respiratory failure: Patient noted to go into acute respiratory failure with marked increased ventricular rate and severe transient hypoxemia. Patient felt to have acute pulmonary edema, cannot rule out acute pulmonary embolism. Patient was placed back on 100% oxygen, patient was placed on IV and subcu Lovenox. Precipitating cause could be either acute ischemia versus pulmonary embolism. Patient to have a CT of the chest when more stable. Dr. Landrum to discuss CODE STATUS. Subsequently it seems patient was made a DNR. Coronary artery disease: 2D echo shows anterior wall and apical akinesis. This seems related to old AZ. LVEF is severely reduced. Medical management will be gradually optimized. Pulmonary edema: Most likely related to LV systolic dysfunction, cannot rule out aspiration. At this point patient was given IV Lasix with good response. Patient blood pressure needed to be supported by transient Levophed infusion. Pneumonia: Continue antibiotic therapy. Hypotension: Most likely related to severe LV systolic dysfunction, ischemia, cardiac dysrhythmia. At this point continue to observe and institute vasopressor support as needed. Peripheral vascular disease: No evidence of acute limb ischemia at this point but continue to observe. Ventricular tachycardia: Patient has a functioning defibrillator. Have started patient on amiodarone drip after giving bolus of 150 mg. Atrial fibrillation with rapid ventricular response: Patient being placed on amiodarone drip. Patient was transiently placed on Cardizem but that has now been discontinued. Will recommend beta-blockers for rate control and also digoxin if needed. Patient started on full dose chronic anticoagulation. Patient was critically ill and I was at the bedside for 15-20 minutes. This was directing care. - Time Time Spent: 50 to 70 Minutes - CODE STATUS : was discussed, patient remains DO NOT RESUSCITATE. Surrogate decision-maker unchanged. Multiple medical problems were addressed. More than 50% of the time spent coordinating care, discussing management plans with involved caregivers. Management plans discussed with involved personnels. Medical decision making was of moderate to high complexity, patient's has multiple comorbidities. Critical Time spent with patient: 15-25 minutes Medications reviewed and adjusted accordingly: Yes
--- NOTE | 2017-05-13 16:58 | RADIOLOGY REPORT (SQ) ---
EXAM DESCRIPTION: CTA CHEST COMPLETED DATE/TIME: 05/13/2017 4:26 pm REASON FOR STUDY: sob COMPARISON: Chest films 05/13/2017, 05/06/2017, 02/02/2017 TECHNIQUE: CT scan of the chest performed using helical scanning technique with dynamic intravenous contrast injection. Images reviewed with lung, soft tissue and bone windows. Reconstructed coronal and sagittal MPR images reviewed. Additional 3 dimensional post-processing performed to develop Maximal Intensity Projection images (WI P). All images stored on PACS. All CT scanners at this facility use dose modulation, iterative reconstruction, and/or weight based d osing when appropriate to reduce radiation dose to as low as reasonably achievable (ALARA). [facility]: Dose Right [facility]: CareDose [facility]: Dose Right [facility]: Teradose 4D [facility]: MYR CONTRAST TYPE AND DOSE: contrast/concentration: Isovue 370.00 mg/ml; Total Contrast Delivered: 68.0 ml; Total Saline Delivered: 80.0 ml RENAL FUNCTION: Creatinine 0.86 RADIATION DOSE: Up-to-date CT equipment and radiation dose reduction techniques were employed. CTDIv ol: 28.2 - 46.9 mGy. DLP: 1157 mGy-cm. . LIMITATIONS: None. FINDINGS: LUNGS AND PLEURA: Complete collapse of the right lower lobe and left lower lobe. Dependen t atelectasis in the upper lobes [id number]. Small to moderate bilateral pleural effusi ons. No pneumothorax. There is probable mucous plugging of the left lower lobe airways best shown o n axial images 63-72. AORTA AND GREAT VESSELS: No aneurysm or dissection. HEART: No pericardial effusion. LAD coronary stent. Left-sided dual lead pacemaker. PULMONARY ARTERIES: No emboli visualized in the main pulmonary arteries or the segmental branches. HILAR AND MEDIASTINAL STRUCTURES: Few small 1 to 2 cm precarinal, and bilateral hilar lymph nodes. HARDWARE: Endotracheal tube tip in the midtrachea. Nasogastric tube tip and side port in the stomach UPPER ABDOMEN: Left upper pole renal cortical cysts. THYROID AND OTHER SOFT TISSUES: No masses. No adenopathy. BONES: No acute or significant finding. 3D MIPS: Confirm above findings. OTHER: No other significant finding. IMPRESSION: No CT angio evidence of acute pulmonary emboli or thoracic aortic dissection. Bilateral complete collapse of the lower lobes with small to moderate bilateral pleural effusions. TECHNICAL DOCUMENTATION: JOB ID: [id number] Quality ID # [id number]: Final reports with documentation of one or more dose reduction techniques (e.g., Au tomated exposure control, adjustment of the mA and/or kV according to patient size, use of iterative reconstruction technique) 2010 [employer]- All Rights Reserved
[2017-05-13 18:05] LABS: ARTERIAL BLOOD BASE EXCESS 0.7 mmol/L; ARTERIAL BLOOD O2 SATURATION 99.3 % (94-98)
[2017-05-13] MEDS: PROPOFOL 100 ML IV PRN (18:05)
[2017-05-13] MEDS: DEXTROSE 5%-WATER 250 ML with NOREPINEPHRINE BITARTRATE 4 MG IV PRN ×2 (18:05)
[2017-05-13 18:20] LABS: ANION GAP 6 (5-19); BLOOD UREA NITROGEN 7 mg/dL (7-20); CALCIUM 7.8 mg/dL (8.4-10.2); CARBON DIOXIDE 23 mmol/L (22-30); CHLORIDE 110 mmol/L (98-107); CREATINE KINASE 95 U/L (55-170); CREATININE RESULT 0.88 mg/dL (0.52-1.25); GLUCOSE 170 mg/dL (75-110); MAGNESIUM 1.8 mg/dL (1.6-2.3); POTASSIUM 3.6 mmol/L (3.6-5.0); SODIUM 138.6 mmol/L (137-145)
[2017-05-13 18:30] LABS: CREATINE KINASE MB 1.34 ng/mL (<4.55); TROPONIN I 0.083 ng/mL
[2017-05-13] MEDS: ENOXAPARIN SODIUM INJ 80 MG/0.8 ML DISP.SYRIN SUBCUT SCH (21:15)
[2017-05-14] MEDS: PIPERACILLIN SODIUM/TAZOBACTAM 3.375 GM in NORMAL SALINE 100 ML IV SCH ×5 (00:31→23:40)
[2017-05-14] MEDS: PROPOFOL 100 ML IV PRN ×3 (00:31→23:39)
[2017-05-14] MEDS: LANSOPRAZOLE 30 MG TAB.RAP.DR PO SCH ×2 (05:24→17:24)
[2017-05-14 05:25] LABS: ARTERIAL BLOOD O2 SATURATION 98.1 % (94-98)
[2017-05-14 05:30] LABS: ABSOLUTE BASOPHILS # (AUTO) 0.1 10^3/uL (0.0-0.2); ABSOLUTE EOSINOPHILS # (AUTO) 0.3 10^3/uL (0.0-0.6); ABSOLUTE LYMPHOCYTES (AUTO) 1.1 10^3/uL (0.5-4.7); ABSOLUTE MONOCYTES (AUTO) 1.1 10^3/uL (0.1-1.4); ABSOLUTE NEUT (AUTO) 5.1 10^3/uL (1.7-8.2); BASOPHILS % (AUTO) 0.7 % (0-2); HEMATOCRIT 26.6 % (37.9-51.0); HEMOGLOBIN 8.5 g/dL (13.5-17.0); HGB HCT DIFFERENCE -1.1; LYMPHOCYTES % (AUTO) 14.5 % (13-45); MEAN CORPUSCULAR HEMOGLOBIN 26.7 pg (27.0-33.4); MEAN CORPUSCULAR HGB CONC 31.9 g/dL (32.0-36.0); MEAN CORPUSCULAR VOLUME 84 fl (80-97); MONOCYTES % (AUTO) 14.3 % (3-13); RED BLOOD COUNT 3.18 10^6/uL (4.35-5.55); RED CELL DISTRIBUTION WIDTH 18.9 % (11.5-14.0); SEGMENTED NEUTROPHILS % (AUTO) 66.5 % (42-78); WHITE BLOOD COUNT 7.7 10^3/uL (4.0-10.5)
[2017-05-14] MEDS: NORMAL SALINE 1000 ML 1,000 ML IV PRN ×2 (05:35→21:52)
[2017-05-14] MEDS: DEXTROSE 5%-WATER 250 ML with NOREPINEPHRINE BITARTRATE 4 MG IV PRN ×4 (05:37→18:36)
[2017-05-14 05:38] LABS: ALANINE AMINOTRANSFERASE 44 U/L (21-72); ALBUMIN 2.2 g/dL (3.5-5.0); ALKALINE PHOSPHATASE 55 U/L (38-126); ASPARTATE AMINO TRANSFERASE 34 U/L (17-59); BILIRUBIN,DIRECT 0.2 mg/dL (0.0-0.4); BILIRUBIN,TOTAL 0.2 mg/dL (0.2-1.3); BLOOD UREA NITROGEN 7 mg/dL (7-20); CALCIUM 7.7 mg/dL (8.4-10.2); CARBON DIOXIDE 26 mmol/L (22-30); CHLORIDE 111 mmol/L (98-107); CREATININE RESULT 0.88 mg/dL (0.52-1.25); GLUCOSE 141 mg/dL (75-110); MAGNESIUM 1.8 mg/dL (1.6-2.3); POTASSIUM 3.1 mmol/L (3.6-5.0)
[2017-05-14 05:49] LABS: SODIUM 140.5 mmol/L (137-145)
[2017-05-14 05:50] LABS: ANION GAP 4 (5-19)
[2017-05-14] MEDS: VANCOMYCIN HCL 750 MG in DEXTROSE 5%-WATER 250 ML IV SCH ×2 (06:01→17:24)
[2017-05-14] MEDS: POTASSIUM CHLORIDE 20 MEQ/50 ML RTU IV SCH ×2 (06:08→08:07)
--- NOTE | 2017-05-14 07:34 | EKG REPORT ---
SEVERITY:- ABNORMAL ECG - WANDERING PACEMAKER LOW VOLTAGE THROUGHOUT BORDERLINE R WAVE PROGRESSION, ANTERIOR LEADS NONSPECIFIC T ABNORMALITIES, LATERAL LEADS : Confirmed by: Alex Hurtado MD 14-May-2017 07:33:43
--- NOTE | 2017-05-14 09:34 | PDOC PROGRESS REPORT ---
Subjective Progress Note for:: 05/14/17 Subjective:: Patient is currently stable. Patient currently DNR. Patient's have an episode of respiratory distress and A. fib and patient's currently on a Levophed drip and continuous IV antibiotic Physical Exam Vital Signs: Temp Pulse Resp BP Pulse Ox 97.5 F 65 24 H 97/69 L 100 05/14/17 05:44 05/14/17 04:00 05/14/17 06:48 05/14/17 06:48 05/14/17 06:48 Intake & Output 05/13/17 05/14/17 05/15/17 06:59 06:59 06:59 Intake Total 3567 5025 Output Total 1340 4935 Balance 2227 90 Weight 74.7 kg 73.4 kg Physical Exam: intubated/under sedation only intubated and sedation's General appearance: PRESENT: no acute distress Eye exam: PRESENT: PERRLA Mouth exam: PRESENT: neck supple Respiratory exam: PRESENT: decreased breath sounds Cardiovascular exam: PRESENT: +S1, +S2 GI/Abdominal exam: PRESENT: normal bowel sounds, soft Extremities exam: PRESENT: pedal edema Neurological exam: PRESENT: altered Results Laboratory Results: 05/14/17 05:15 05/14/17 05:15 05/13/17 05/13/17 05/13/17 10:50 10:50 17:45 WBC RBC Hgb Hct MCV MCH MCHC RDW Plt Count Seg Neutrophils % Lymphocytes % Monocytes % Eosinophils % Basophils % Absolute Neutrophils Absolute Lymphocytes Absolute Monocytes Absolute Eosinophils Absolute Basophils Carbonic Acid 1.23 1.16 HCO3/H2CO3 Ratio 16:1 21:1 ABG pH 7.31 L 7.43 ABG pCO2 41.0 38.4 ABG pO2 70.4 L 181.3 H ABG HCO3 20.1 25.0 ABG O2 Saturation 92.7 L 99.3 H ABG Base Excess -5.8 0.7 FiO2 100% 80% Sodium 140.8 Potassium 3.7 Chloride 110 H Carbon Dioxide 19 L Anion Gap 12 BUN 6 L Creatinine 0.94 Est GFR ( Amer) > 60 Est GFR (Non-Af Amer) > 60 Glucose 231 H Calcium 8.2 L Magnesium 2.5 H D Total Bilirubin AST ALT Alkaline Phosphatase Total Protein Albumin 08/19/17 08/20/17 08/20/17 17:45 05:15 05:15 WBC 7.7 RBC 3.18 L Hgb 8.5 L Hct 26.6 L MCV 84 MCH 26.7 L MCHC 31.9 L RDW 18.9 H Plt Count 135 L Seg Neutrophils % 66.5 Lymphocytes % 14.5 Monocytes % 14.3 H Eosinophils % 4.0 Basophils % 0.7 Absolute Neutrophils 5.1 Absolute Lymphocytes 1.1 Absolute Monocytes 1.1 Absolute Eosinophils 0.3 Absolute Basophils 0.1 Carbonic Acid 1.12 HCO3/H2CO3 Ratio 20:1 ABG pH 7.42 ABG pCO2 37.2 ABG pO2 110.7 H ABG HCO3 23.4 ABG O2 Saturation 98.1 H ABG Base Excess -1.0 FiO2 30% Sodium 138.6 Potassium 3.6 Chloride 110 H Carbon Dioxide 23 Anion Gap 6 BUN 7 Creatinine 0.88 Est GFR ( Amer) > 60 Est GFR (Non-Af Amer) > 60 Glucose 170 H Calcium 7.8 L Magnesium 1.8 Total Bilirubin AST ALT Alkaline Phosphatase Total Protein Albumin 05/14/17 05:15 WBC RBC Hgb Hct MCV MCH MCHC RDW Plt Count Seg Neutrophils % Lymphocytes % Monocytes % Eosinophils % Basophils % Absolute Neutrophils Absolute Lymphocytes Absolute Monocytes Absolute Eosinophils Absolute Basophils Carbonic Acid HCO3/H2CO3 Ratio ABG pH ABG pCO2 ABG pO2 ABG HCO3 ABG O2 Saturation ABG Base Excess FiO2 Sodium 140.5 Potassium 3.1 L Chloride 111 H Carbon Dioxide 26 Anion Gap 4 L BUN 7 Creatinine 0.88 Est GFR ( Amer) > 60 Est GFR (Non-Af Amer) > 60 Glucose 141 H Calcium 7.7 L Magnesium 1.8 Total Bilirubin 0.2 AST 34 ALT 44 Alkaline Phosphatase 55 Total Protein 5.0 L Albumin 2.2 L 05/05/17 05/05/17 05/05/17 17:15 17:15 23:30 Creatine Kinase 123 160 CK-MB (CK-2) 3.17 Troponin I 0.312 NT-Pro-B Natriuret Pep 05/05/17 05/06/17 05/06/17 23:30 04:35 04:35 Creatine Kinase 207 H CK-MB (CK-2) 4.65 H 4.97 H Troponin I 0.432 0.375 NT-Pro-B Natriuret Pep 05/08/17 05/08/17 05/09/17 12:00 12:00 06:15 Creatine Kinase 186 H 197 H CK-MB (CK-2) 0.65 Troponin I 0.060 NT-Pro-B Natriuret Pep 05/09/17 05/13/17 05/13/17 06:15 10:50 10:50 Creatine Kinase 129 CK-MB (CK-2) 0.75 0.67 Troponin I 0.056 0.039 NT-Pro-B Natriuret Pep 57386 H 05/13/17 05/13/17 17:45 17:45 Creatine Kinase 95 CK-MB (CK-2) 1.34 Troponin I 0.083 NT-Pro-B Natriuret Pep Impressions: Head CT 05/05/17 12:43 IMPRESSION: MILD CHRONIC CHANGES OF ATROPHY AND MICROVASCULAR ISCHEMIA. NO ACUTE PROCESS. KUB X-Ray 05/05/17 13:59 IMPRESSION: NG tube appears to be in satisfactory position. Mild small-bowel distention as described. 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 There is no plain film evidence for bony involvement by osteomyelitis. Other findings as noted above Chest/Abdomen CTA 05/13/17 00:00 IMPRESSION: No CT angio evidence of acute pulmonary emboli or thoracic aortic dissection. Bilateral complete collapse of the lower lobes with small to moderate bilateral pleural effusions. Chest X-Ray 05/13/17 06:00 IMPRESSION: No significant interval change. Assessment & Plan - Diagnosis (1) Acute respiratory failure with hypercapnia Is this a current diagnosis for this admission?: Yes Plan: Currently intubated follow with the pulmonary (2) Lactic acidosis Is this a current diagnosis for this admission?: Yes Plan: All resolved (3) Pseudomonal sepsis Is this a current diagnosis for this admission?: Yes Plan: Continues to IV Zosyn and the vancomycin (4) Septic shock Is this a current diagnosis for this admission?: No Plan: Is all improving (5) Atrial fibrillation with RVR Is this a current diagnosis for this admission?: Yes Plan: Currently stable (6) Coronary artery disease Qualifiers: Coronary Disease-Associated Artery/Lesion type: unspecified vessel or lesion type Associated angina: angina presence unspecified Is this a current diagnosis for this admission?: Yes Plan: Status post defibrillator currently stable patient is DNR (7) Pulmonary edema Qualifiers: Chronicity: acute Qualified Code(s): J81.0 - Acute pulmonary edema Is this a current diagnosis for this admission?: Yes Plan: Nightly on IV Lasix will repeat the chest x-ray CT angiogram negative for PE (8) Anemia Qualifiers: Anemia type: unspecified type Qualified Code(s): D64.9 - Anemia, unspecified Is this a current diagnosis for this admission?: Yes Plan: Continues to monitor the patient if it below 8 we will transfuse the blood - Time Time Spent with patient: 15-24 minutes Medications reviewed and adjusted accordingly: Yes Anticipated discharge: Other Within: Other - Inpatient Certification Medical Necessity: Need Close Monitoring Due to Risk of Patient Decompensation, Need for IV Antibiotics Post Hospital Care: D/C Property Developer Documentation - Plan Summary Plan Summary: Discussed with the patient's family the patient's poor conditions patient is currently a DNR
--- NOTE | 2017-05-14 10:01 | RADIOLOGY REPORT (SQ) ---
EXAM DESCRIPTION: CHEST SINGLE VIEW COMPLETED DATE/TIME: 05/14/2017 9:53 am REASON FOR STUDY: respirtory distress COMPARISON: 05/13/2017 EXAM PARAMETERS: NUMBER OF VIEWS: One view. TECHNIQUE: Single frontal radiographic view of the chest acquired. RADIATION DOSE: NA LIMITATIONS: None. FINDINGS: LUNGS AND PLEURA: Overall improved aeration with some residual bilateral pleural effusions and airspace disease. MEDIASTINUM AND HILAR STRUCTURES: No masses. Contour normal. HEART AND VASCULAR STRUCTURES: Heart stable in size. Normal vasculature. BONES: No acute findings. HARDWARE: Stable. OTHER: No other significant finding. IMPRESSION: IMPROVED APPEARANCE OF THE CHEST ABOVE. TECHNICAL DOCUMENTATION: JOB ID: [id number]
[2017-05-14] MEDS: FUROSEMIDE INJ/PF 20 MG/2 ML SDV IV SCH ×2 (10:15→21:52)
[2017-05-14] MEDS: ENOXAPARIN SODIUM INJ 80 MG/0.8 ML DISP.SYRIN SUBCUT SCH (10:15)
[2017-05-14] MEDS: COLLAGENASE CLOSTRIDIUM HIST. OINT 30 GM TOP SCH ×2 (10:16→17:24)
[2017-05-14] MEDS ORDERED: AMIODARONE HCL 200 MG TABLET NG ONE (10:30)
[2017-05-14 13:19] LABS: ANION GAP 5 (5-19); BLOOD UREA NITROGEN 6 mg/dL (7-20); CALCIUM 7.9 mg/dL (8.4-10.2); CARBON DIOXIDE 25 mmol/L (22-30); CHLORIDE 110 mmol/L (98-107); CREATININE RESULT 0.87 mg/dL (0.52-1.25); GLUCOSE 136 mg/dL (75-110); POTASSIUM 3.5 mmol/L (3.6-5.0); SODIUM 140.4 mmol/L (137-145)
--- NOTE | 2017-05-14 13:55 | PDOC PROGRESS REPORT ---
Subjective Progress Note for:: 05/14/17 Subjective:: Patient showing improvement. Blood pressure has been stable. There is marked decrease in ventricular tachyarrhythmia as well as atrial tachyarrhythmia on amiodarone, to be switched over to amiodarone 400 p.o. twice daily. Patient remains intubated, sedated, patient however looks comfortable and in acute distress. Medications reviewed. Physical Exam Vital Signs: Temp Pulse Resp BP Pulse Ox 98.6 F 61 12 111/77 100 05/14/17 12:27 05/14/17 12:27 05/14/17 12:27 05/14/17 12:27 05/14/17 12:27 Intake & Output 05/13/17 05/14/17 05/15/17 06:59 06:59 06:59 Intake Total 3567 5025 Output Total 1340 4935 1325 Balance 2227 90 -1325 Weight 74.7 kg 73.4 kg Exam: GENERAL: well-nourished and in no acute distress. Patient is intubated and sedated. Orientation cannot be checked HEAD: Atraumatic, normocephalic. EYES: Pupils equal round and reactive to light, extraocular movements could not be checked, sclera anicteric, conjunctiva are normal. ENT: TMs normal, nares patent, oropharynx clear without exudates. Moist mucous membranes. No oral ulcerations or bleeding gums noted NECK: supple without lymphadenopathy or JVD. Trachea is central. No cervical or axillary lymphadenopathy noted. Carotids are 2+ LUNGS: Breath sounds mostly clear to auscultation patient is noted to have bibasal crackles at the extreme bases CHEST: Palpation of the chest wall shows no significant chest wall tenderness or abnormalities. 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 ABDOMEN: Soft, no significant tenderness appreciated, normoactive bowel sounds. No guarding, no rebound. No rigidity noted . No masses appreciated. EXTREMITIES: Pedal pulses are 1-2+, no calf tenderness noted, 1+ pedal edema noted. No clubbing or cyanosis. 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 NEUROLOGICAL: The patient cannot participate in the neurological exam but no facial asymmetry noted. Extremities slightly hypotonic PSYCH: This cannot be evaluated. Patient cannot participate. SKIN: No significant ecchymosis, rash, or signs of pruritus noted. MUSCULOSKELETAL EXAM: No significant joint swelling noted. Patient cannot participate in musculoskeletal exam Results Laboratory Results: 05/14/17 05:15 05/14/17 12:55 05/13/17 05/13/17 05/14/17 17:45 17:45 05:15 WBC RBC Hgb Hct MCV MCH MCHC RDW Plt Count Seg Neutrophils % Lymphocytes % Monocytes % Eosinophils % Basophils % Absolute Neutrophils Absolute Lymphocytes Absolute Monocytes Absolute Eosinophils Absolute Basophils Carbonic Acid 1.16 1.12 HCO3/H2CO3 Ratio 21:1 20:1 ABG pH 7.43 7.42 ABG pCO2 38.4 37.2 ABG pO2 181.3 H 110.7 H ABG HCO3 25.0 23.4 ABG O2 Saturation 99.3 H 98.1 H ABG Base Excess 0.7 -1.0 FiO2 80% 30% Sodium 138.6 Potassium 3.6 Chloride 110 H Carbon Dioxide 23 Anion Gap 6 BUN 7 Creatinine 0.88 Est GFR ( Amer) > 60 Est GFR (Non-Af Amer) > 60 Glucose 170 H Calcium 7.8 L Magnesium 1.8 Total Bilirubin AST ALT Alkaline Phosphatase Total Protein Albumin 05/14/17 05/14/17 05/14/17 05:15 05:15 12:55 WBC 7.7 RBC 3.18 L Hgb 8.5 L Hct 26.6 L MCV 84 MCH 26.7 L MCHC 31.9 L RDW 18.9 H Plt Count 135 L Seg Neutrophils % 66.5 Lymphocytes % 14.5 Monocytes % 14.3 H Eosinophils % 4.0 Basophils % 0.7 Absolute Neutrophils 5.1 Absolute Lymphocytes 1.1 Absolute Monocytes 1.1 Absolute Eosinophils 0.3 Absolute Basophils 0.1 Carbonic Acid HCO3/H2CO3 Ratio ABG pH ABG pCO2 ABG pO2 ABG HCO3 ABG O2 Saturation ABG Base Excess FiO2 Sodium 140.5 140.4 Potassium 3.1 L 3.5 L Chloride 111 H 110 H Carbon Dioxide 26 25 Anion Gap 4 L 5 BUN 7 6 L Creatinine 0.88 0.87 Est GFR ( Amer) > 60 > 60 Est GFR (Non-Af Amer) > 60 > 60 Glucose 141 H 136 H Calcium 7.7 L 7.9 L Magnesium 1.8 Total Bilirubin 0.2 AST 34 ALT 44 Alkaline Phosphatase 55 Total Protein 5.0 L Albumin 2.2 L 05/05/17 05/05/17 05/05/17 17:15 17:15 23:30 Creatine Kinase 123 160 CK-MB (CK-2) 3.17 Troponin I 0.312 NT-Pro-B Natriuret Pep 05/05/17 05/06/17 05/06/17 23:30 04:35 04:35 Creatine Kinase 207 H CK-MB (CK-2) 4.65 H 4.97 H Troponin I 0.432 0.375 NT-Pro-B Natriuret Pep 05/08/17 05/08/17 05/09/17 12:00 12:00 06:15 Creatine Kinase 186 H 197 H CK-MB (CK-2) 0.65 Troponin I 0.060 NT-Pro-B Natriuret Pep 05/09/17 05/13/17 05/13/17 06:15 10:50 10:50 Creatine Kinase 129 CK-MB (CK-2) 0.75 0.67 Troponin I 0.056 0.039 NT-Pro-B Natriuret Pep 20126 H 05/13/17 05/13/17 17:45 17:45 Creatine Kinase 95 CK-MB (CK-2) 1.34 Troponin I 0.083 NT-Pro-B Natriuret Pep EKG Comments: Telemetry strips shows intermittent AV paced rhythm. Impressions: Head CT 05/05/17 12:43 IMPRESSION: MILD CHRONIC CHANGES OF ATROPHY AND MICROVASCULAR ISCHEMIA. NO ACUTE PROCESS. KUB X-Ray 05/05/17 13:59 IMPRESSION: NG tube appears to be in satisfactory position. Mild small-bowel distention as described. 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 There is no plain film evidence for bony involvement by osteomyelitis. Other findings as noted above Chest/Abdomen CTA 05/13/17 00:00 IMPRESSION: No CT angio evidence of acute pulmonary emboli or thoracic aortic dissection. Bilateral complete collapse of the lower lobes with small to moderate bilateral pleural effusions. Chest X-Ray 05/14/17 00:00 IMPRESSION: IMPROVED APPEARANCE OF THE CHEST ABOVE. Status: Image reviewed by or - Chest x-ray shows improvement in pulmonary edema but patient remains in mild CHF. Assessment & Plan - Diagnosis (1) Acute respiratory failure Qualifiers: Respiratory failure complication: unspecified whether with hypoxia or hypercapnia Qualified Code(s): J96.00 - Acute respiratory failure, unspecified whether with hypoxia or hypercapnia Is this a current diagnosis for this admission?: Yes (2) Coronary artery disease Qualifiers: Coronary Disease-Associated Artery/Lesion type: unspecified vessel or lesion type Associated angina: angina presence unspecified Is this a current diagnosis for this admission?: Yes (3) Pulmonary edema Qualifiers: Chronicity: acute Qualified Code(s): J81.0 - Acute pulmonary edema Is this a current diagnosis for this admission?: Yes (4) Pneumonia Qualifiers: Pneumonia type: due to unspecified organism Lung location: unspecified part of lung Is this a current diagnosis for this admission?: Yes (5) Hypotension Qualifiers: Hypotension type: unspecified hypotension type Qualified Code(s): I95.9 - Hypotension, unspecified Is this a current diagnosis for this admission?: Yes (6) Ventricular tachycardia Is this a current diagnosis for this admission?: Yes (7) Atrial fibrillation with RVR Is this a current diagnosis for this admission?: Yes (8) Peripheral vascular disease Is this a current diagnosis for this admission?: Yes - Notes Notes: Acute respiratory failure: Currently intubated and being artificially ventilated. CTA chest was negative for pulmonary embolism but showed large left pleural effusion and moderate right pleural effusion. Will recommend diuretic therapy and optimization of CHF therapy. It seems respiratory failure was precipitated by acute pulmonary edema. This was most likely cardiogenic. Coronary artery disease: 2D echo shows anterior wall and apical akinesis. This seems related to old [place]. LVEF is severely reduced. Medical management will be gradually optimized. Patient noted to have stent in the LAD. Pulmonary edema: Most likely related to LV systolic dysfunction, cannot rule out aspiration. Continue with IV Lasix which had elicited so far a good response. Patient blood pressure needed to be supported by transient Levophed infusion. Currently on low-dose Levophed. Pneumonia: Continue antibiotic therapy. Hypotension: Most likely related to severe LV systolic dysfunction, ischemia, cardiac dysrhythmia. At this point continue to observe and institute vasopressor support as needed. Peripheral vascular disease: No evidence of acute limb ischemia at this point but continue to observe. Ventricular tachycardia: Patient has a functioning defibrillator. Have started patient on amiodarone drip after giving bolus of 150 mg. Atrial fibrillation with rapid ventricular response: Patient being placed on amiodarone drip. Patient was transiently placed on Cardizem but that has now been discontinued. Will recommend beta-blockers for rate control and also digoxin if needed. Have discontinued full dose anticoagulation in view of anemia, have started patient on Lovenox 30 mg subcu every 12. - Time Time with patient: Greater than 35 minutes - CODE STATUS was discussed, patient remains DNR. Surrogate decision-maker unchanged. Multiple medical problems were addressed. More than 50% of the time spent coordinating care, discussing management plans with involved caregivers. Management plans discussed with involved personnels. Medical decision making was of moderate to high complexity , patient's has multiple comorbidities. Dr. Willard to cover from tomorrow. Medications reviewed and adjusted accordingly: Yes
[2017-05-14] MEDS: AMIODARONE HCL 200 MG TABLET NG SCH (17:23)
[2017-05-14] MEDS: ENOXAPARIN SODIUM INJ 30 MG/0.3 ML DISP.SYRIN SUBCUT SCH (21:53)
[2017-05-15] MEDS: LANSOPRAZOLE 30 MG TAB.RAP.DR PO SCH ×2 (05:07→17:38)
[2017-05-15] MEDS: PIPERACILLIN SODIUM/TAZOBACTAM 3.375 GM in NORMAL SALINE 100 ML IV SCH ×4 (05:07→23:50)
[2017-05-15] MEDS: PROPOFOL 100 ML IV PRN ×4 (05:07→22:57)
[2017-05-15 05:43] LABS: APPEARANCE,URINE SLIGHTLY-CLOUDY; BILIRUBIN,URINE NEGATIVE (NEGATIVE); GLUCOSE, URINE NEGATIVE (NEGATIVE); KETONES,URINE NEGATIVE (NEGATIVE); LEUKOCYTE ESTERASE,URINE NEGATIVE (NEGATIVE); NITRITE,URINE NEGATIVE (NEGATIVE); PROTEIN,URINE NEGATIVE (NEGATIVE); UROBILINOGEN,URINE NEGATIVE mg/dL (<2.0)
[2017-05-15 05:46] LABS: HEMATOCRIT 25.1 % (37.9-51.0); HGB HCT DIFFERENCE -1.1; MEAN CORPUSCULAR HEMOGLOBIN 26.8 pg (27.0-33.4); MEAN CORPUSCULAR HGB CONC 31.8 g/dL (32.0-36.0); MEAN CORPUSCULAR VOLUME 84 fl (80-97); RED BLOOD COUNT 2.98 10^6/uL (4.35-5.55); RED CELL DISTRIBUTION WIDTH 19.9 % (11.5-14.0)
[2017-05-15] MEDS: VANCOMYCIN HCL 750 MG in DEXTROSE 5%-WATER 250 ML IV SCH ×2 (05:55→17:38)
[2017-05-15 06:02] LABS: BLOOD UREA NITROGEN 5 mg/dL (7-20); CALCIUM 7.8 mg/dL (8.4-10.2); CARBON DIOXIDE 27 mmol/L (22-30); CHLORIDE 111 mmol/L (98-107); CREATININE RESULT 0.91 mg/dL (0.52-1.25); GLUCOSE 124 mg/dL (75-110); POTASSIUM 3.1 mmol/L (3.6-5.0)
[2017-05-15 06:10] LABS: SODIUM 141.7 mmol/L (137-145)
[2017-05-15 06:12] LABS: ANION GAP 4 (5-19)
[2017-05-15] MEDS: FUROSEMIDE INJ/PF 20 MG/2 ML SDV IV SCH ×2 (09:42→21:17)
[2017-05-15] MEDS: AMIODARONE HCL 200 MG TABLET NG SCH ×2 (09:42→17:38)
[2017-05-15] MEDS: COLLAGENASE CLOSTRIDIUM HIST. OINT 30 GM TOP SCH ×2 (09:44→18:37)
[2017-05-15] MEDS: ENOXAPARIN SODIUM INJ 30 MG/0.3 ML DISP.SYRIN SUBCUT SCH ×2 (12:04→21:22)
--- NOTE | 2017-05-15 12:40 | EEG PRO FEE REPORT ---
EEG INTERPRETATION PATIENT NAME: MOHAN BALLESTEROS ROOM#: [id number] ORDER#: [id number] DATE OF STUDY: 05/10/2017 : 1940 REFERRING MD: MARLI LANG M.D. DIAGNOSIS: Altered mental status MEDICATIONS: Heparin, Lansoprozole, Propofol, Clindamycin. REPORT This is a 16 channel EEG recording with a channel of EKG done during wakefulness, periods of drowsiness likely; photic stimulation, and early stages of sleep. In wakefulness the background activity predominantly 7.5 cycles per second seen best in the posterior electrodes. This gives away intermittently to slower forms 4-5 cycles per second. Beta 18-22 cycles per second seen in moderate artifact. No epileptiform discharges noted. Photic stimulation was administered did not evoke any abnormal discharges. More slowing seen in early stages of sleep. IMPRESSION Mildly abnormal EEG that has some intermittent generalized slowing; finding is not specific can be sleepiness, drowsiness, medication affected, cephalopathy such as toxic, metabolic, ischemic, etc. Clinical correlation in that regard is recommended however no epileptiform activity noted. INTERPRETING PHYSICIAN: BRIJESH JUNG M.D. /: TEE TT: 1057 ID: [id number] /: [id number] TD: [id number] JOB: [id number] cc:Karlo CALLEUNKarlo OCHOA M.D. >
--- NOTE | 2017-05-15 15:28 | PDOC PROGRESS REPORT ---
Subjective Subjective:: Patient remain intubated, vent supported, and sedated on Propofol infusion. Interval event with respiratory distress and Atrial fibrillation noted. Cardiology input appreciated. Tolerating enteral tube feeding. Remain on IV Vancomycin and Zosyn. No reported fever. Physical Exam Vital Signs: Temp Pulse Resp BP Pulse Ox 98.6 F 63 12 110/68 99 05/15/17 12:00 05/15/17 14:00 05/15/17 14:00 05/15/17 14:00 05/15/17 14:00 Intake & Output 05/14/17 05/15/17 05/16/17 06:59 06:59 06:59 Intake Total 5025 4415 60 Output Total 4935 3675 2050 Balance 90 740 -1990 Weight 73.4 kg 73.6 kg Physical Exam: Remain intubated with ET and NG tubes in situ. Head exam: PRESENT: atraumatic, normocephalic Eye exam: PRESENT: conjunctiva pink, EOMI, PERRLA. ABSENT: scleral icterus Mouth exam: PRESENT: moist Respiratory exam: PRESENT: clear to auscultation srikanth, decreased breath sounds - at lung bases Cardiovascular exam: PRESENT: RRR - monitor revealed pacemaker rhythm. ABSENT: diastolic murmur, rubs, systolic murmur GI/Abdominal exam: PRESENT: normal bowel sounds, soft. ABSENT: distended, guarding, mass, organomegaly, rebound, tenderness Extremities exam: PRESENT: left AKA. ABSENT: pedal edema Neurological exam: PRESENT: altered - sedated Skin exam: PRESENT: dry, warm. [place] in situ. Wound dressing satisfactory. Results Laboratory Results: 05/15/17 05:30 05/15/17 05:30 05/15/17 05/15/17 05/15/17 00:05 05:30 05:30 WBC 7.0 RBC 2.98 L Hgb 8.0 L Hct 25.1 L MCV 84 MCH 26.8 L MCHC 31.8 L RDW 19.9 H Plt Count 129 L Sodium Potassium Chloride Carbon Dioxide Anion Gap BUN Creatinine Est GFR ( Amer) Est GFR (Non-Af Amer) Glucose Calcium Urine Color YELLOW Urine Appearance SLIGHTLY-CLOUDY Urine pH 5.0 Ur Specific [place]nn 1.020 Urine Protein NEGATIVE Urine Glucose (UA) NEGATIVE Urine Ketones NEGATIVE Urine Blood NEGATIVE Urine Nitrite NEGATIVE Ur Leukocyte Esterase NEGATIVE Urine WBC (Auto) 2 Urine RBC (Auto) 1 Stool Occult Blood NEGATIVE 05/15/17 05:30 WBC RBC Hgb Hct MCV MCH MCHC RDW Plt Count Sodium 141.7 Potassium 3.1 L Chloride 111 H Carbon Dioxide 27 Anion Gap 4 L BUN 5 L Creatinine 0.91 Est GFR ( Amer) > 60 Est GFR (Non-Af Amer) > 60 Glucose 124 H Calcium 7.8 L Urine Color Urine Appearance Urine pH Ur Specific [place] Urine Protein Urine Glucose (UA) Urine Ketones Urine Blood Urine Nitrite Ur Leukocyte Esterase Urine WBC (Auto) Urine RBC (Auto) Stool Occult Blood 05/05/17 05/05/17 05/05/17 17:15 17:15 23:30 Creatine Kinase 123 160 CK-MB (CK-2) 3.17 Troponin I 0.312 NT-Pro-B Natriuret Pep 05/05/17 05/06/17 05/06/17 23:30 04:35 04:35 Creatine Kinase 207 H CK-MB (CK-2) 4.65 H 4.97 H Troponin I 0.432 0.375 NT-Pro-B Natriuret Pep 05/08/17 05/08/17 05/09/17 12:00 12:00 06:15 Creatine Kinase 186 H 197 H CK-MB (CK-2) 0.65 Troponin I 0.060 NT-Pro-B Natriuret Pep 05/09/17 05/13/17 05/13/17 06:15 10:50 10:50 Creatine Kinase 129 CK-MB (CK-2) 0.75 0.67 Troponin I 0.056 0.039 NT-Pro-B Natriuret Pep 23151 H 05/13/17 05/13/17 17:45 17:45 Creatine Kinase 95 CK-MB (CK-2) 1.34 Troponin I 0.083 NT-Pro-B Natriuret Pep Impressions: Head CT 05/05/17 12:43 IMPRESSION: MILD CHRONIC CHANGES OF ATROPHY AND MICROVASCULAR ISCHEMIA. NO ACUTE PROCESS. KUB X-Ray 05/05/17 13:59 IMPRESSION: NG tube appears to be in satisfactory position. Mild small-bowel distention as described. 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 There is no plain film evidence for bony involvement by osteomyelitis. Other findings as noted above Chest/Abdomen CTA 05/13/17 00:00 IMPRESSION: No CT angio evidence of acute pulmonary emboli or thoracic aortic dissection. Bilateral complete collapse of the lower lobes with small to moderate bilateral pleural effusions. Chest X-Ray 05/14/17 00:00 IMPRESSION: IMPROVED APPEARANCE OF THE CHEST ABOVE. EEG INTERPRETATION 05/10/2017: Impression: Mildly abnormal EEG that has some intermittent generalized slowing; finding is not specific can be sleepiness, drowsiness, medication affected, cephalopathy such as toxic, metabolic, ischemic, etc. Clinical correlation in that regard is recommended however no epileptiform activity noted. Assessment & Plan - Diagnosis (1) Pseudomonal sepsis Is this a current diagnosis for this admission?: Yes (2) Leg abrasion, infected Qualifiers: Laterality: left Is this a current diagnosis for this admission?: Yes (3) Acute respiratory failure with hypercapnia Is this a current diagnosis for this admission?: Yes (4) Hypokalemia due to inadequate potassium intake Is this a current diagnosis for this admission?: Yes (5) Atrial fibrillation with RVR Is this a current diagnosis for this admission?: Yes Plan: Patient remain on pacemaker rate control management. (6) Hypotension Qualifiers: Hypotension type: unspecified hypotension type Qualified Code(s): I95.9 - Hypotension, unspecified Is this a current diagnosis for this admission?: Yes Plan: Improved on IV Levophed and IV Normal Saline infusion. - Time Time Spent with patient: 25-34 minutes Medications reviewed and adjusted accordingly: Yes Anticipated discharge: SNF Within: Other - Inpatient Certification Based on my medical assessment, after consideration of the patient's comorbidities, presenting symptoms, or acuity I expect that the services needed warrant INPATIENT care.: Yes I certify that my determination is in accordance with my understanding of Medicare's requirements for reasonable and necessary INPATIENT services [42 CFR 412.3e].: Yes Medical Necessity: Need Close Monitoring Due to Risk of Patient Decompensation, Need For IV Fluids, Need For Continuous Telemetry Monitoring, Need for Nebulizer Therapy and Monitoring of Response, Need for IV Antibiotics, Risk of Complication if Not Cared For in Hospital Post Hospital Care: D/C or Transfer Summary - Plan Summary Plan Summary: Continue IV antibiotic therapy coverage. Maintain on pressor support. I had extensive discussion with family at bedside regarding care plan and consideration of comfort care during this visit. Family will further deliberate on the issue and get back to me of Dr Molina. Overall prognosis remain poor. Patient do remain on DNR status.
[2017-05-15] MEDS: NORMAL SALINE 1000 ML 1,000 ML IV PRN (22:54)
[2017-05-16] MEDS: PIPERACILLIN SODIUM/TAZOBACTAM 3.375 GM in NORMAL SALINE 100 ML IV SCH ×4 (05:19→23:03)
[2017-05-16] MEDS: PROPOFOL 100 ML IV PRN ×3 (05:19→22:28)
[2017-05-16] MEDS: LANSOPRAZOLE 30 MG TAB.RAP.DR PO SCH ×2 (05:20→17:15)
[2017-05-16 06:07] LABS: ANION GAP 5 (5-19); BLOOD UREA NITROGEN 6 mg/dL (7-20); CARBON DIOXIDE 28 mmol/L (22-30); CHLORIDE 109 mmol/L (98-107); CREATININE RESULT 0.82 mg/dL (0.52-1.25); GLUCOSE 104 mg/dL (75-110); SODIUM 141.8 mmol/L (137-145)
[2017-05-16] MEDS: POTASSIUM CHLORIDE 20 MEQ/50 ML RTU IV SCH ×3 (06:52→10:11)
[2017-05-16] MEDS: AMIODARONE HCL 200 MG TABLET NG SCH ×2 (09:46→17:16)
[2017-05-16] MEDS: FUROSEMIDE INJ/PF 20 MG/2 ML SDV IV SCH ×2 (09:46→21:13)
[2017-05-16] MEDS: ENOXAPARIN SODIUM INJ 30 MG/0.3 ML DISP.SYRIN SUBCUT SCH ×2 (09:47→21:14)
[2017-05-16] MEDS: COLLAGENASE CLOSTRIDIUM HIST. OINT 30 GM TOP SCH ×2 (10:15→17:16)
[2017-05-16] MEDS: NORMAL SALINE 1000 ML 1,000 ML IV PRN ×2 (10:22→21:13)
[2017-05-16 16:12] LABS: BLOOD UREA NITROGEN 8 mg/dL (7-20); CARBON DIOXIDE 30 mmol/L (22-30); CREATININE RESULT 0.83 mg/dL (0.52-1.25); GLUCOSE 95 mg/dL (75-110); POTASSIUM 3.5 mmol/L (3.6-5.0)
[2017-05-16 16:22] LABS: CHLORIDE 109 mmol/L (98-107); SODIUM 140.7 mmol/L (137-145)
[2017-05-16 16:26] LABS: ANION GAP 2 (5-19)
--- NOTE | 2017-05-16 18:16 | PDOC PROGRESS REPORT ---
Subjective Progress Note for:: 05/16/17 Subjective:: Patient remain intubated and vent supported. Sedated on Propofol infusion. Tolerating enteral tube feeding. Remain on IV Vancomycin and Zosyn. No reported fever. Family has not indicated decision of further care intensity. Physical Exam Vital Signs: Temp Pulse Resp BP Pulse Ox 99.1 F 64 12 96/59 L 96 05/16/17 16:00 05/16/17 16:00 05/16/17 17:40 05/16/17 17:40 05/16/17 17:40 Intake & Output 05/15/17 05/16/17 05/17/17 06:59 06:59 06:59 Intake Total 4415 4056 Output Total 3679 8193 1835 Balance 740 379 -1836 Weight 73.6 kg 73.7 kg Physical Exam: ET and NG tubes in situ. Head exam: PRESENT: atraumatic, normocephalic Eye exam: PRESENT: conjunctiva pink, EOMI, PERRLA. ABSENT: scleral icterus Mouth exam: PRESENT: moist Respiratory exam: PRESENT: clear to auscultation srikanth, decreased breath sounds - at lung bases Cardiovascular exam: PRESENT: RRR - monitor revealed pacemaker rhythm. ABSENT: diastolic murmur, rubs, systolic murmur GI/Abdominal exam: PRESENT: normal bowel sounds, soft. ABSENT: distended, guarding, mass, organomegaly, rebound, tenderness Extremities exam: PRESENT: left AKA. ABSENT: pedal edema Neurological exam: PRESENT: altered - sedated Skin exam: PRESENT: dry, warm. [place] in situ. Wound dressing satisfactory. Results Laboratory Results: 05/15/17 05:30 05/16/17 15:52 05/16/17 05/16/17 05:30 15:52 Sodium 141.8 140.7 Potassium 3.0 L* 3.5 L Chloride 109 H 109 H Carbon Dioxide 28 30 Anion Gap 5 2 L BUN 6 L 8 Creatinine 0.82 0.83 Est GFR ( Amer) > 60 > 60 Est GFR (Non-Af Amer) > 60 > 60 Glucose 104 95 Calcium 8.0 L 8.0 L 05/05/17 05/05/17 05/05/17 17:15 17:15 23:30 Creatine Kinase 123 160 CK-MB (CK-2) 3.17 Troponin I 0.312 NT-Pro-B Natriuret Pep 05/05/17 05/06/17 05/06/17 23:30 04:35 04:35 Creatine Kinase 207 H CK-MB (CK-2) 4.65 H 4.97 H Troponin I 0.432 0.375 NT-Pro-B Natriuret Pep 05/08/17 05/08/17 05/09/17 12:00 12:00 06:15 Creatine Kinase 186 H 197 H CK-MB (CK-2) 0.65 Troponin I 0.060 NT-Pro-B Natriuret Pep 05/09/17 05/13/17 05/13/17 06:15 10:50 10:50 Creatine Kinase 129 CK-MB (CK-2) 0.75 0.67 Troponin I 0.056 0.039 NT-Pro-B Natriuret Pep 38024 H 05/13/17 05/13/17 17:45 17:45 Creatine Kinase 95 CK-MB (CK-2) 1.34 Troponin I 0.083 NT-Pro-B Natriuret Pep Impressions: Head CT 05/05/17 12:43 IMPRESSION: MILD CHRONIC CHANGES OF ATROPHY AND MICROVASCULAR ISCHEMIA. NO ACUTE PROCESS. KUB X-Ray 05/05/17 13:59 IMPRESSION: NG tube appears to be in satisfactory position. Mild small-bowel distention as described. 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 There is no plain film evidence for bony involvement by osteomyelitis. Other findings as noted above Chest/Abdomen CTA 05/13/17 00:00 IMPRESSION: No CT angio evidence of acute pulmonary emboli or thoracic aortic dissection. Bilateral complete collapse of the lower lobes with small to moderate bilateral pleural effusions. Chest X-Ray 05/14/17 00:00 IMPRESSION: IMPROVED APPEARANCE OF THE CHEST ABOVE. Assessment & Plan - Diagnosis (1) Pseudomonal sepsis Is this a current diagnosis for this admission?: Yes (2) Leg abrasion, infected Qualifiers: Laterality: left Is this a current diagnosis for this admission?: Yes (3) Acute respiratory failure with hypercapnia Is this a current diagnosis for this admission?: Yes (4) Hypokalemia due to inadequate potassium intake Is this a current diagnosis for this admission?: Yes (5) Atrial fibrillation with RVR Is this a current diagnosis for this admission?: Yes (6) Hypotension Qualifiers: Hypotension type: unspecified hypotension type Qualified Code(s): I95.9 - Hypotension, unspecified Is this a current diagnosis for this admission?: Yes - Time Time Spent with patient: 25-34 minutes Medications reviewed and adjusted accordingly: Yes Anticipated discharge: Hospice Within: Other - Inpatient Certification Based on my medical assessment, after consideration of the patient's comorbidities, presenting symptoms, or acuity I expect that the services needed warrant INPATIENT care.: Yes I certify that my determination is in accordance with my understanding of Medicare's requirements for reasonable and necessary INPATIENT services [42 CFR 412.3e].: Yes Medical Necessity: Need Close Monitoring Due to Risk of Patient Decompensation, Need For IV Fluids, Need For Continuous Telemetry Monitoring, Need for Nebulizer Therapy and Monitoring of Response, Need for IV Antibiotics, Risk of Complication if Not Cared For in Hospital Post Hospital Care: D/C or Transfer Summary - Plan Summary Plan Summary: Continue current medication management. Follow up with family regarding decision on care intensity in view of his poor prognosis and morbidities.
[2017-05-16] MEDS: DEXTROSE 5%-WATER 250 ML with NOREPINEPHRINE BITARTRATE 4 MG IV PRN ×2 (18:20)
[2017-05-17] MEDS: PIPERACILLIN SODIUM/TAZOBACTAM 3.375 GM in NORMAL SALINE 100 ML IV SCH ×4 (05:19→23:01)
[2017-05-17] MEDS: LANSOPRAZOLE 30 MG TAB.RAP.DR PO SCH ×2 (05:19→17:00)
[2017-05-17 05:22] LABS: APPEARANCE,URINE TURBID; BILIRUBIN,URINE NEGATIVE (NEGATIVE); GLUCOSE, URINE NEGATIVE (NEGATIVE); KETONES,URINE NEGATIVE (NEGATIVE); LEUKOCYTE ESTERASE,URINE NEGATIVE (NEGATIVE); NITRITE,URINE NEGATIVE (NEGATIVE); PROTEIN,URINE NEGATIVE (NEGATIVE); URINE SPECIFIC GRAVITY 1.012; UROBILINOGEN,URINE NEGATIVE mg/dL (<2.0)
[2017-05-17 05:27] LABS: HEMATOCRIT 24.7 % (37.9-51.0); HGB HCT DIFFERENCE -0.7; MEAN CORPUSCULAR HEMOGLOBIN 27.2 pg (27.0-33.4); MEAN CORPUSCULAR HGB CONC 32.3 g/dL (32.0-36.0); MEAN CORPUSCULAR VOLUME 84 fl (80-97); RED BLOOD COUNT 2.93 10^6/uL (4.35-5.55); RED CELL DISTRIBUTION WIDTH 20.1 % (11.5-14.0); WHITE BLOOD COUNT 6.2 10^3/uL (4.0-10.5)
[2017-05-17 05:39] LABS: BLOOD UREA NITROGEN 7 mg/dL (7-20); CALCIUM 7.6 mg/dL (8.4-10.2); CARBON DIOXIDE 29 mmol/L (22-30); CREATININE RESULT 0.81 mg/dL (0.52-1.25); GLUCOSE 86 mg/dL (75-110)
[2017-05-17 05:54] LABS: ANION GAP 5 (5-19); CHLORIDE 108 mmol/L (98-107); POTASSIUM 3.2 mmol/L (3.6-5.0); SODIUM 142.2 mmol/L (137-145)
[2017-05-17] MEDS ORDERED: POTASSI CL 20 MEQ/50 ML RIDER 20 MEQ/50 ML RTUPB IV ONE (06:07)
[2017-05-17] MEDS: PROPOFOL 100 ML IV PRN ×3 (08:18→23:01)
[2017-05-17] MEDS: POTASSIUM CHLORIDE 20 MEQ/50 ML RTU IV SCH ×2 (08:20→10:47)
[2017-05-17] MEDS: NORMAL SALINE 1000 ML 1,000 ML IV PRN ×2 (08:22→17:03)
[2017-05-17] MEDS: FUROSEMIDE INJ/PF 20 MG/2 ML SDV IV SCH ×2 (10:45→21:45)
[2017-05-17] MEDS: AMIODARONE HCL 200 MG TABLET NG SCH ×2 (10:45→17:00)
[2017-05-17] MEDS: COLLAGENASE CLOSTRIDIUM HIST. OINT 30 GM TOP SCH ×2 (10:46→17:01)
[2017-05-17] MEDS: ENOXAPARIN SODIUM INJ 30 MG/0.3 ML DISP.SYRIN SUBCUT SCH ×2 (10:48→21:45)
--- NOTE | 2017-05-17 17:03 | PDOC PROGRESS REPORT ---
Subjective Progress Note for:: 05/17/17 Subjective:: Patient remains sedated and intubated Physical Exam Vital Signs: Temp Pulse Resp BP Pulse Ox 99.0 F 61 12 107/65 95 05/17/17 15:53 05/17/17 15:53 05/17/17 15:53 05/17/17 15:53 05/17/17 15:53 Intake & Output 05/16/17 05/17/17 05/18/17 06:59 06:59 06:59 Intake Total 4056 4589 Output Total 4482 4450 1525 Balance -379 63 -1525 Weight 73.7 kg 72.7 kg General appearance: PRESENT: no acute distress Eye exam: PRESENT: PERRLA Respiratory exam: PRESENT: clear to auscultation srikanth Cardiovascular exam: PRESENT: +S1, +S2 GI/Abdominal exam: PRESENT: soft Results Laboratory Results: 05/17/17 05:00 05/17/17 13:00 05/17/17 05/17/17 05/17/17 05:00 05:00 05:00 WBC 6.2 RBC 2.93 L Hgb 8.0 L Hct 24.7 L MCV 84 MCH 27.2 MCHC 32.3 RDW 20.1 H Plt Count 156 Sodium 142.2 Potassium 3.2 L Chloride 108 H Carbon Dioxide 29 Anion Gap 5 BUN 7 Creatinine 0.81 Est GFR ( Amer) > 60 Est GFR (Non-Af Amer) > 60 Glucose 86 Calcium 7.6 L Urine Color Urine Appearance Urine pH Ur Specific [place] Urine Protein Urine Glucose (UA) Urine Ketones Urine Blood Urine Nitrite Ur Leukocyte Esterase Urine WBC (Auto) Urine RBC (Auto) Stool Occult Blood NEGATIVE 05/17/17 05/17/17 05:00 13:00 WBC RBC Hgb Hct MCV MCH MCHC RDW Plt Count Sodium Potassium 3.9 Chloride Carbon Dioxide Anion Gap BUN Creatinine Est GFR ( Amer) Est GFR (Non-Af Amer) Glucose Calcium Urine Color YELLOW Urine Appearance TURBID Urine pH 5.0 Ur Specific [place] 1.012 Urine Protein NEGATIVE Urine Glucose (UA) NEGATIVE Urine Ketones NEGATIVE Urine Blood MODERATE H Urine Nitrite NEGATIVE Ur Leukocyte Esterase NEGATIVE Urine WBC (Auto) 3 Urine RBC (Auto) 31 Stool Occult Blood 05/05/17 05/05/17 05/05/17 17:15 17:15 23:30 Creatine Kinase 123 160 CK-MB (CK-2) 3.17 Troponin I 0.312 NT-Pro-B Natriuret Pep 05/05/17 05/06/17 05/06/17 23:30 04:35 04:35 Creatine Kinase 207 H CK-MB (CK-2) 4.65 H 4.97 H Troponin I 0.432 0.375 NT-Pro-B Natriuret Pep 05/08/17 05/08/17 05/09/17 12:00 12:00 06:15 Creatine Kinase 186 H 197 H CK-MB (CK-2) 0.65 Troponin I 0.060 NT-Pro-B Natriuret Pep 05/09/17 05/13/17 05/13/17 06:15 10:50 10:50 Creatine Kinase 129 CK-MB (CK-2) 0.75 0.67 Troponin I 0.056 0.039 NT-Pro-B Natriuret Pep 42852 H 05/13/17 05/13/17 17:45 17:45 Creatine Kinase 95 CK-MB (CK-2) 1.34 Troponin I 0.083 NT-Pro-B Natriuret Pep Impressions: Head CT 05/05/17 12:43 IMPRESSION: MILD CHRONIC CHANGES OF ATROPHY AND MICROVASCULAR ISCHEMIA. NO ACUTE PROCESS. KUB X-Ray 05/05/17 13:59 IMPRESSION: NG tube appears to be in satisfactory position. Mild small-bowel distention as described. 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 There is no plain film evidence for bony involvement by osteomyelitis. Other findings as noted above Chest/Abdomen CTA 05/13/17 00:00 IMPRESSION: No CT angio evidence of acute pulmonary emboli or thoracic aortic dissection. Bilateral complete collapse of the lower lobes with small to moderate bilateral pleural effusions. Chest X-Ray 05/14/17 00:00 IMPRESSION: IMPROVED APPEARANCE OF THE CHEST ABOVE. Assessment & Plan - Diagnosis (1) Septic shock Is this a current diagnosis for this admission?: Yes Plan: Patient remained on intravenous norepinephrine to maintain a normal blood pressure, he is hemodynamically unstable requiring continuous vasopressor with norepinephrine, the nurses stated that family is thinking of transitioning care to comfort care measures. (2) Metabolic acidosis with increased anion gap and accumulation of organic acids Is this a current diagnosis for this admission?: Yes (3) Elevated troponin Is this a current diagnosis for this admission?: Yes (4) Pseudomonal sepsis Is this a current diagnosis for this admission?: Yes Plan: Patient will continue present antibiotic coverage
--- NOTE | 2017-05-17 20:26 | PDOC PROGRESS REPORT ---
Subjective Progress Note for:: 05/16/17 Subjective:: Patient showing improvement. Blood pressure has been stable. There is marked decrease in ventricular tachyarrhythmia as well as atrial tachyarrhythmia on amiodarone, to be switched over to amiodarone 400 p.o. twice daily. Patient remains intubated, sedated, patient however looks comfortable and in acute distress. Medications reviewed. Physical Exam Vital Signs: Temp Pulse Resp BP Pulse Ox 99.0 F 62 12 119/75 98 05/17/17 15:53 05/17/17 20:00 05/17/17 18:11 05/17/17 18:11 05/17/17 18:11 Intake & Output 05/16/17 05/17/17 05/18/17 06:59 06:59 06:59 Intake Total 4056 4523 2060 Output Total 4435 4460 1800 Balance -379 63 260 Weight 73.7 kg 72.7 kg Results Laboratory Results: 05/17/17 05:00 05/17/17 13:00 05/17/17 05/17/17 05/17/17 05:00 05:00 05:00 WBC 6.2 RBC 2.93 L Hgb 8.0 L Hct 24.7 L MCV 84 MCH 27.2 MCHC 32.3 RDW 20.1 H Plt Count 156 Sodium 142.2 Potassium 3.2 L Chloride 108 H Carbon Dioxide 29 Anion Gap 5 BUN 7 Creatinine 0.81 Est GFR ( Amer) > 60 Est GFR (Non-Af Amer) > 60 Glucose 86 Calcium 7.6 L Urine Color Urine Appearance Urine pH Ur Specific [employer] Urine Protein Urine Glucose (UA) Urine Ketones Urine Blood Urine Nitrite Ur Leukocyte Esterase Urine WBC (Auto) Urine RBC (Auto) Stool Occult Blood NEGATIVE 05/17/17 05/17/17 05:00 13:00 WBC RBC Hgb Hct MCV MCH MCHC RDW Plt Count Sodium Potassium 3.9 Chloride Carbon Dioxide Anion Gap BUN Creatinine Est GFR ( Amer) Est GFR (Non-Af Amer) Glucose Calcium Urine Color YELLOW Urine Appearance TURBID Urine pH 5.0 Ur Specific [employer] 1.012 Urine Protein NEGATIVE Urine Glucose (UA) NEGATIVE Urine Ketones NEGATIVE Urine Blood MODERATE H Urine Nitrite NEGATIVE Ur Leukocyte Esterase NEGATIVE Urine WBC (Auto) 3 Urine RBC (Auto) 31 Stool Occult Blood 05/05/17 05/05/1705/05/17 17:15 17:15 23:30 Creatine Kinase 123 160 CK-MB (CK-2) 3.17 Troponin I 0.312 NT-Pro-B Natriuret Pep 05/05/17 05/06/17 05/06/17 23:30 04:35 04:35 Creatine Kinase 207 H CK-MB (CK-2) 4.65 H 4.97 H Troponin I 0.432 0.375 NT-Pro-B Natriuret Pep 05/08/17 05/08/17 05/09/17 12:00 12:00 06:15 Creatine Kinase 186 H 197 H CK-MB (CK-2) 0.65 Troponin I 0.060 NT-Pro-B Natriuret Pep 05/09/17 05/13/17 05/13/17 06:15 10:50 10:50 Creatine Kinase 129 CK-MB (CK-2) 0.75 0.67 Troponin I 0.056 0.039 NT-Pro-B Natriuret Pep 27217 H 05/13/17 05/13/17 17:45 17:45 Creatine Kinase 95 CK-MB (CK-2) 1.34 Troponin I 0.083 NT-Pro-B Natriuret Pep Impressions: Head CT 05/05/17 12:43 IMPRESSION: MILD CHRONIC CHANGES OF ATROPHY AND MICROVASCULAR ISCHEMIA. NO ACUTE PROCESS. KUB X-Ray 05/05/17 13:59 IMPRESSION: NG tube appears to be in satisfactory position. Mild small-bowel distention as described. 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 There is no plain film evidence for bony involvement by osteomyelitis. Other findings as noted above Chest/Abdomen CTA 05/13/17 00:00 IMPRESSION: No CT angio evidence of acute pulmonary emboli or thoracic aortic dissection. Bilateral complete collapse of the lower lobes with small to moderate bilateral pleural effusions. Chest X-Ray 05/14/17 00:00 IMPRESSION: IMPROVED APPEARANCE OF THE CHEST ABOVE. Assessment & Plan - Diagnosis (1) Acute respiratory failure Qualifiers: Respiratory failure complication: unspecified whether with hypoxia or hypercapnia Qualified Code(s): J96.00 - Acute respiratory failure, unspecified whether with hypoxia or hypercapnia Is this a current diagnosis for this admission?: Yes (2) Coronary artery disease Qualifiers: Coronary Disease-Associated Artery/Lesion type: unspecified vessel or lesion type Associated angina: angina presence unspecified Is this a current diagnosis for this admission?: Yes (3) Pulmonary edema Qualifiers: Chronicity: acute Qualified Code(s): J81.0 - Acute pulmonary edema Is this a current diagnosis for this admission?: Yes (4) Pneumonia Qualifiers: Pneumonia type: due to unspecified organism Lung location: unspecified part of lung Is this a current diagnosis for this admission?: Yes (5) Hypotension Qualifiers: Hypotension type: unspecified hypotension type Qualified Code(s): I95.9 - Hypotension, unspecified Is this a current diagnosis for this admission?: Yes (6) Ventricular tachycardia Is this a current diagnosis for this admission?: Yes (7) Atrial fibrillation with RVR Is this a current diagnosis for this admission?: Yes (8) Peripheral vascular disease Is this a current diagnosis for this admission?: Yes - Notes Notes: Acute respiratory failure: Currently intubated and being artificially ventilated. It seems respiratory failure was precipitated by acute pulmonary edema. This was most likely cardiogenic. Continue with baseline diuretic therapy. Coronary artery disease: 2D echo shows anterior wall and apical akinesis. This seems related to old DC. LVEF is severely reduced. Medical management will be gradually optimized. Patient noted to have stent in the LAD. Pulmonary edema: Most likely related to LV systolic dysfunction, cannot rule out aspiration. Patient blood pressure needed to be supported by transient Levophed infusion. Currently on low-dose Levophed. Pneumonia: Continue antibiotic therapy. Hypotension: Most likely related to severe LV systolic dysfunction, ischemia, cardiac dysrhythmia. At this point continue to observe and institute vasopressor support as needed. Peripheral vascular disease: No evidence of acute limb ischemia at this point but continue to observe. Ventricular tachycardia: Patient has a functioning defibrillator. Continue p.o. amiodarone. Atrial fibrillation with rapid ventricular response: Will recommend beta- blockers for rate control and also digoxin if needed. Probably a marginal candidate for chronic anticoagulation. - Time Time with patient: Greater than 35 minutes - CODE STATUS : was discussed, patient remains DO NOT RESUSCITATE. Surrogate decision-maker unchanged. Multiple medical problems were addressed. More than 50% of the time spent coordinating care, discussing management plans with involved caregivers. Management plans discussed with involved personnels. Medical decision making was of moderate to high complexity, patient's has multiple comorbidities. Medications reviewed and adjusted accordingly: Yes
--- NOTE | 2017-05-17 20:26 | PDOC PROGRESS REPORT ---
Subjective Progress Note for:: 05/17/17 Subjective:: Patient showing improvement. Blood pressure has been stable. There is marked decrease in ventricular tachyarrhythmia as well as atrial tachyarrhythmia on amiodarone, to be switched over to amiodarone 400 p.o. twice daily. Patient remains intubated, sedated, patient however looks comfortable and in acute distress. Medications reviewed. Physical Exam Vital Signs: Temp Pulse Resp BP Pulse Ox 99.0 F 62 12 119/75 98 05/17/17 15:53 05/17/17 20:00 05/17/17 18:11 05/17/17 18:11 05/17/17 18:11 Intake & Output 05/16/17 05/17/17 05/18/17 06:59 06:59 06:59 Intake Total 4056 4523 2060 Output Total 4435 4460 1800 Balance -379 63 260 Weight 73.7 kg 72.7 kg Results Laboratory Results: 05/17/17 05:00 05/17/17 13:00 05/17/17 05/17/17 05/17/17 05:00 05:00 05:00 WBC 6.2 RBC 2.93 L Hgb 8.0 L Hct 24.7 L MCV 84 MCH 27.2 MCHC 32.3 RDW 20.1 H Plt Count 156 Sodium 142.2 Potassium 3.2 L Chloride 108 H Carbon Dioxide 29 Anion Gap 5 BUN 7 Creatinine 0.81 Est GFR ( Amer) > 60 Est GFR (Non-Af Amer) > 60 Glucose 86 Calcium 7.6 L Urine Color Urine Appearance Urine pH Ur Specific [place] Urine Protein Urine Glucose (UA) Urine Ketones Urine Blood Urine Nitrite Ur Leukocyte Esterase Urine WBC (Auto) Urine RBC (Auto) Stool Occult Blood NEGATIVE 05/17/17 05/17/17 05:00 13:00 WBC RBC Hgb Hct MCV MCH MCHC RDW Plt Count Sodium Potassium 3.9 Chloride Carbon Dioxide Anion Gap BUN Creatinine Est GFR ( Amer) Est GFR (Non-Af Amer) Glucose Calcium Urine Color YELLOW Urine Appearance TURBID Urine pH 5.0 Ur Specific [place] 1.012 Urine Protein NEGATIVE Urine Glucose (UA) NEGATIVE Urine Ketones NEGATIVE Urine Blood MODERATE H Urine Nitrite NEGATIVE Ur Leukocyte Esterase NEGATIVE Urine WBC (Auto) 3 Urine RBC (Auto) 31 Stool Occult Blood 05/05/17 05/05/1705/05/17 17:15 17:15 23:30 Creatine Kinase 123 160 CK-MB (CK-2) 3.17 Troponin I 0.312 NT-Pro-B Natriuret Pep 05/05/17 05/06/17 05/06/17 23:30 04:35 04:35 Creatine Kinase 207 H CK-MB (CK-2) 4.65 H 4.97 H Troponin I 0.432 0.375 NT-Pro-B Natriuret Pep 05/08/17 05/08/17 05/09/17 12:00 12:00 06:15 Creatine Kinase 186 H 197 H CK-MB (CK-2) 0.65 Troponin I 0.060 NT-Pro-B Natriuret Pep 05/09/17 05/13/17 05/13/17 06:15 10:50 10:50 Creatine Kinase 129 CK-MB (CK-2) 0.75 0.67 Troponin I 0.056 0.039 NT-Pro-B Natriuret Pep 58557 H 05/13/17 05/13/17 17:45 17:45 Creatine Kinase 95 CK-MB (CK-2) 1.34 Troponin I 0.083 NT-Pro-B Natriuret Pep Impressions: Head CT 05/05/17 12:43 IMPRESSION: MILD CHRONIC CHANGES OF ATROPHY AND MICROVASCULAR ISCHEMIA. NO ACUTE PROCESS. KUB X-Ray 05/05/17 13:59 IMPRESSION: NG tube appears to be in satisfactory position. Mild small-bowel distention as described. 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 There is no plain film evidence for bony involvement by osteomyelitis. Other findings as noted above Chest/Abdomen CTA 05/13/17 00:00 IMPRESSION: No CT angio evidence of acute pulmonary emboli or thoracic aortic dissection. Bilateral complete collapse of the lower lobes with small to moderate bilateral pleural effusions. Chest X-Ray 05/14/17 00:00 IMPRESSION: IMPROVED APPEARANCE OF THE CHEST ABOVE. Assessment & Plan - Diagnosis (1) Acute respiratory failure Qualifiers: Respiratory failure complication: unspecified whether with hypoxia or hypercapnia Qualified Code(s): J96.00 - Acute respiratory failure, unspecified whether with hypoxia or hypercapnia Is this a current diagnosis for this admission?: Yes (2) Coronary artery disease Qualifiers: Coronary Disease-Associated Artery/Lesion type: unspecified vessel or lesion type Associated angina: angina presence unspecified Is this a current diagnosis for this admission?: Yes (3) Pulmonary edema Qualifiers: Chronicity: acute Qualified Code(s): J81.0 - Acute pulmonary edema Is this a current diagnosis for this admission?: Yes (4) Pneumonia Qualifiers: Pneumonia type: due to unspecified organism Lung location: unspecified part of lung Is this a current diagnosis for this admission?: Yes (5) Hypotension Qualifiers: Hypotension type: unspecified hypotension type Qualified Code(s): I95.9 - Hypotension, unspecified Is this a current diagnosis for this admission?: Yes (6) Ventricular tachycardia Is this a current diagnosis for this admission?: Yes (7) Atrial fibrillation with RVR Is this a current diagnosis for this admission?: Yes (8) Peripheral vascular disease Is this a current diagnosis for this admission?: Yes - Notes Notes: Acute respiratory failure: Currently intubated and being artificially ventilated. It seems respiratory failure was precipitated by acute pulmonary edema. This was most likely cardiogenic. Continue with baseline diuretic therapy. Coronary artery disease: 2D echo shows anterior wall and apical akinesis. This seems related to old AR. LVEF is severely reduced. Medical management will be gradually optimized. Patient noted to have stent in the LAD. Pulmonary edema: Most likely related to LV systolic dysfunction, cannot rule out aspiration. Patient blood pressure needed to be supported by transient Levophed infusion. Currently on low-dose Levophed. Pneumonia: Continue antibiotic therapy. Hypotension: Most likely related to severe LV systolic dysfunction, ischemia, cardiac dysrhythmia. At this point continue to observe and institute vasopressor support as needed. Peripheral vascular disease: No evidence of acute limb ischemia at this point but continue to observe. Ventricular tachycardia: Patient has a functioning defibrillator. Continue p.o. amiodarone. Atrial fibrillation with rapid ventricular response: Will recommend beta- blockers for rate control and also digoxin if needed. Probably a marginal candidate for chronic anticoagulation. Have discontinued full dose anticoagulation in view of anemia, have started patient on Lovenox 30 mg subcu every 12. - Time Time with patient: 15-25 minutes - CODE STATUS : was discussed, patient remains DO NOT RESUSCITATE. Surrogate decision-maker unchanged. Multiple medical problems were addressed. More than 50% of the time spent coordinating care, discussing management plans with involved caregivers. Management plans discussed with involved personnels. Medical decision making was of moderate to high complexity, patient's has multiple comorbidities.
--- NOTE | 2017-05-17 21:46 | EKG REPORT ---
SEVERITY:- ABNORMAL ECG - ATRIAL-PACED COMPLEXES vs SINUS RHYTHM LOW VOLTAGE IN FRONTAL LEADS BORDERLINE R WAVE PROGRESSION, ANTERIOR LEADS NONSPECIFIC T ABNORMALITIES, LATERAL LEADS BORDERLINE PROLONGED QT INTERVAL : Confirmed by: Wilder Rizzo 17-May-2017 21:45:38
[2017-05-18] MEDS: PROPOFOL 100 ML IV PRN ×2 (03:34→11:12)
[2017-05-18] MEDS: DEXTROSE 5%-WATER 250 ML with NOREPINEPHRINE BITARTRATE 4 MG IV PRN ×2 (03:34)
[2017-05-18] MEDS: NORMAL SALINE 1000 ML 1,000 ML IV PRN ×2 (03:35→22:14)
[2017-05-18 05:29] LABS: ANION GAP 6 (5-19); BLOOD UREA NITROGEN 8 mg/dL (7-20); CALCIUM 8.2 mg/dL (8.4-10.2); CARBON DIOXIDE 29 mmol/L (22-30); CHLORIDE 109 mmol/L (98-107); GLUCOSE 124 mg/dL (75-110); POTASSIUM 3.4 mmol/L (3.6-5.0); SODIUM 144.3 mmol/L (137-145)
[2017-05-18] MEDS: PIPERACILLIN SODIUM/TAZOBACTAM 3.375 GM in NORMAL SALINE 100 ML IV SCH ×4 (05:54→23:40)
[2017-05-18] MEDS: LANSOPRAZOLE 30 MG TAB.RAP.DR PO SCH ×2 (05:54→18:08)
[2017-05-18] MEDS: POTASSIUM CHLORIDE 20 MEQ/50 ML RTU IV SCH ×2 (07:59→11:11)
[2017-05-18 08:37] LABS: ARTERIAL BLOOD BASE EXCESS 6.6 mmol/L
[2017-05-18 08:41] LABS: ABSOLUTE EOSINOPHILS # (AUTO) 0.2 10^3/uL (0.0-0.6); ABSOLUTE LYMPHOCYTES (AUTO) 0.8 10^3/uL (0.5-4.7); ABSOLUTE MONOCYTES (AUTO) 0.8 10^3/uL (0.1-1.4); ABSOLUTE NEUT (AUTO) 4.8 10^3/uL (1.7-8.2); BASOPHILS % (AUTO) 0.8 % (0-2); EOSINOPHILS % (AUTO) 2.4 % (0-6); HEMATOCRIT 24.4 % (37.9-51.0); LYMPHOCYTES % (AUTO) 11.4 % (13-45); MEAN CORPUSCULAR HEMOGLOBIN 26.8 pg (27.0-33.4); MEAN CORPUSCULAR HGB CONC 31.9 g/dL (32.0-36.0); MEAN CORPUSCULAR VOLUME 84 fl (80-97); MONOCYTES % (AUTO) 12.7 % (3-13); RED BLOOD COUNT 2.91 10^6/uL (4.35-5.55); RED CELL DISTRIBUTION WIDTH 19.6 % (11.5-14.0); SEGMENTED NEUTROPHILS % (AUTO) 72.7 % (42-78); WHITE BLOOD COUNT 6.6 10^3/uL (4.0-10.5)
[2017-05-18 08:44] LABS: HEMOGLOBIN 7.8 g/dL (13.5-17.0)
--- NOTE | 2017-05-18 09:35 | RADIOLOGY REPORT (SQ) ---
EXAM DESCRIPTION: CHEST SINGLE VIEW COMPLETED DATE/TIME: 05/18/2017 8:43 am REASON FOR STUDY: resp failure COMPARISON: CT angio chest 05/13/2017, Chest films 05/05/2017, 05/09/2017, 05/13/2017, 05/14/2017 EXAM PARAMETERS: NUMBER OF VIEWS: One view. TECHNIQUE: Single frontal radiographic view of the chest acquired. RADIATION DOSE: NA LIMITATIONS: Caps FINDINGS: Endotracheal tube tip 5 to 6 cm above the johnny, at the level of the clavicular heads. Right jugular central line tip superior vena cava. Nasogastric tube tip and side port in the stomach. LUNGS AND PLEURA: Stable trace bilateral pleural effusions. No focal airspace disease. No pneumotho rax. MEDIASTINUM AND HILAR STRUCTURES: No masses. Contour normal. HEART AND VASCULAR STRUCTURES: Heart normal in size. Normal vasculature. BONES: No acute findings. HARDWARE: Left-sided dual lead pacemaker unchanged OTHER: No other significant finding. IMPRESSION: Stable trace bilateral pleural effusions. No dense lobar consolidation worrisome for pn eumonia. Tubes and lines in good positioning TECHNICAL DOCUMENTATION: JOB ID: [id number]
[2017-05-18] MEDS: FUROSEMIDE INJ/PF 20 MG/2 ML SDV IV SCH ×2 (11:13→22:13)
[2017-05-18] MEDS: COLLAGENASE CLOSTRIDIUM HIST. OINT 30 GM TOP SCH ×2 (11:14→17:49)
[2017-05-18] MEDS: ENOXAPARIN SODIUM INJ 30 MG/0.3 ML DISP.SYRIN SUBCUT SCH ×2 (11:14→22:18)
[2017-05-18] MEDS: AMIODARONE HCL 200 MG TABLET NG SCH ×2 (11:14→18:08)
[2017-05-18] MEDS: ACETAMINOPHEN SOLN 325 MG/10.15 ML UDCUP NG PRN (17:48)
[2017-05-18 18:15] LABS: HEMATOCRIT 24.3 % (37.9-51.0); HGB HCT DIFFERENCE -0.9; MEAN CORPUSCULAR HEMOGLOBIN 26.8 pg (27.0-33.4); MEAN CORPUSCULAR VOLUME 84 fl (80-97); RED CELL DISTRIBUTION WIDTH 19.7 % (11.5-14.0); WHITE BLOOD COUNT 6.8 10^3/uL (4.0-10.5)
[2017-05-18 18:17] LABS: HEMOGLOBIN 7.8 g/dL (13.5-17.0)
[2017-05-18 18:40] LABS: BLOOD UREA NITROGEN 10 mg/dL (7-20); CALCIUM 8.2 mg/dL (8.4-10.2); CHLORIDE 108 mmol/L (98-107); GLUCOSE 97 mg/dL (75-110); POTASSIUM 3.8 mmol/L (3.6-5.0)
[2017-05-18 18:50] LABS: CARBON DIOXIDE 31 mmol/L (22-30); SODIUM 141.5 mmol/L (137-145)
[2017-05-18 18:52] LABS: ANION GAP 3 (5-19)
--- NOTE | 2017-05-18 19:36 | PDOC PROGRESS REPORT ---
Subjective Progress Note for:: 05/18/17 Subjective:: Patient sedated and intubated Physical Exam Vital Signs: Temp Pulse Resp BP Pulse Ox 99.0 F 60 0 L 104/63 96 05/17/17 15:53 05/18/17 07:44 05/18/17 18:28 05/18/17 18:28 05/18/17 18:28 Intake & Output 05/17/17 05/18/17 05/19/17 06:59 06:59 06:59 Intake Total 4554 4102 1553 Output Total 4404 7700 5 Balance 63 842 -472 Weight 72.7 kg 73.6 kg General appearance: PRESENT: no acute distress Respiratory exam: PRESENT: clear to auscultation srikanth Cardiovascular exam: PRESENT: +S1, +S2 GI/Abdominal exam: PRESENT: soft Results Laboratory Results: 05/18/17 18:00 05/18/17 18:00 05/18/17 05/18/17 05/18/17 04:55 08:20 08:23 WBC 6.6 RBC 2.91 L Hgb 7.8 L Hct 24.4 L MCV 84 MCH 26.8 L MCHC 31.9 L RDW 19.6 H Plt Count 175 Seg Neutrophils % 72.7 Lymphocytes % 11.4 L Monocytes % 12.7 Eosinophils % 2.4 Basophils % 0.8 Absolute Neutrophils 4.8 Absolute Lymphocytes 0.8 Absolute Monocytes 0.8 Absolute Eosinophils 0.2 Absolute Basophils 0.0 Carbonic Acid 1.15 HCO3/H2CO3 Ratio 26:1 ABG pH 7.51 H ABG pCO2 38.3 ABG pO2 99.1 ABG HCO3 30.0 H ABG O2 Saturation 98.0 ABG Base Excess 6.6 FiO2 30% Sodium 144.3 Potassium 3.4 L Chloride 109 H Carbon Dioxide 29 Anion Gap 6 BUN 8 Creatinine 0.90 Est GFR ( Amer) > 60 Est GFR (Non-Af Amer) > 60 Glucose 124 H Calcium 8.2 L 05/18/17 05/18/17 18:00 18:00 WBC 6.8 RBC 2.90 L Hgb 7.8 L Hct 24.3 L MCV 84 MCH 26.8 L MCHC 32.0 RDW 19.7 H Plt Count 179 Seg Neutrophils % Lymphocytes % Monocytes % Eosinophils % Basophils % Absolute Neutrophils Absolute Lymphocytes Absolute Monocytes Absolute Eosinophils Absolute Basophils Carbonic Acid HCO3/H2CO3 Ratio ABG pH ABG pCO2 ABG pO2 ABG HCO3 ABG O2 Saturation ABG Base Excess FiO2 Sodium 141.5 Potassium 3.8 Chloride 108 H Carbon Dioxide 31 H Anion Gap 3 L BUN 10 Creatinine 0.90 Est GFR ( Amer) > 60 Est GFR (Non-Af Amer) > 60 Glucose 97 Calcium 8.2 L 05/05/17 05/05/17 05/05/17 17:15 17:15 23:30 Creatine Kinase 123 160 CK-MB (CK-2) 3.17 Troponin I 0.312 NT-Pro-B Natriuret Pep 05/05/17 05/06/17 05/06/17 23:30 04:35 04:35 Creatine Kinase 207 H CK-MB (CK-2) 4.65 H 4.97 H Troponin I 0.432 0.375 NT-Pro-B Natriuret Pep 05/08/17 05/08/17 05/09/17 12:00 12:00 06:15 Creatine Kinase 186 H 197 H CK-MB (CK-2) 0.65 Troponin I 0.060 NT-Pro-B Natriuret Pep 05/09/17 05/13/17 05/13/17 06:15 10:50 10:50 Creatine Kinase 129 CK-MB (CK-2) 0.75 0.67 Troponin I 0.056 0.039 NT-Pro-B Natriuret Pep 19357 H 05/13/17 05/13/17 17:45 17:45 Creatine Kinase 95 CK-MB (CK-2) 1.34 Troponin I 0.083 NT-Pro-B Natriuret Pep Impressions: Head CT 05/05/17 12:43 IMPRESSION: MILD CHRONIC CHANGES OF ATROPHY AND MICROVASCULAR ISCHEMIA. NO ACUTE PROCESS. KUB X-Ray 05/05/17 13:59 IMPRESSION: NG tube appears to be in satisfactory position. Mild small-bowel distention as described. 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 There is no plain film evidence for bony involvement by osteomyelitis. Other findings as noted above Chest/Abdomen CTA 05/13/17 00:00 IMPRESSION: No CT angio evidence of acute pulmonary emboli or thoracic aortic dissection. Bilateral complete collapse of the lower lobes with small to moderate bilateral pleural effusions. Chest X-Ray 05/18/17 08:08 IMPRESSION: Stable trace bilateral pleural effusions. No dense lobar consolidation worrisome for pneumonia. Tubes and lines in good positioning Assessment & Plan - Diagnosis (1) Septic shock Is this a current diagnosis for this admission?: Yes (2) Metabolic acidosis with increased anion gap and accumulation of organic acids Is this a current diagnosis for this admission?: Yes (3) Elevated troponin Is this a current diagnosis for this admission?: Yes (4) Pseudomonal sepsis Is this a current diagnosis for this admission?: Yes (5) Anemia Qualifiers: Anemia type: unspecified type Qualified Code(s): D64.9 - Anemia, unspecified Is this a current diagnosis for this admission?: Yes Plan: We will transfuse with 2 units of packed red blood cells (6) Acute respiratory failure Qualifiers: Respiratory failure complication: unspecified whether with hypoxia or hypercapnia Qualified Code(s): J96.00 - Acute respiratory failure, unspecified whether with hypoxia or hypercapnia Is this a current diagnosis for this admission?: Yes Plan: Patient still continues to require mechanical ventilation, he tolerated pressure support mode/weaning mode for prolonged period of time we hopefully can wean patient off mechanical ventilation tomorrow, family will be in tomorrow.
[2017-05-19] MEDS: PIPERACILLIN SODIUM/TAZOBACTAM 3.375 GM in NORMAL SALINE 100 ML IV SCH ×3 (06:04→18:05)
[2017-05-19] MEDS: LANSOPRAZOLE 30 MG TAB.RAP.DR PO SCH ×2 (06:04→18:06)
[2017-05-19] MEDS: PROPOFOL 100 ML IV PRN (06:05)
[2017-05-19] MEDS: NORMAL SALINE 1000 ML 1,000 ML IV PRN (06:05)
[2017-05-19 06:36] LABS: APPEARANCE,URINE SLIGHTLY-CLOUDY; BILIRUBIN,URINE NEGATIVE (NEGATIVE); GLUCOSE, URINE NEGATIVE (NEGATIVE); KETONES,URINE NEGATIVE (NEGATIVE); LEUKOCYTE ESTERASE,URINE NEGATIVE (NEGATIVE); NITRITE,URINE NEGATIVE (NEGATIVE); PROTEIN,URINE 30 mg/dL (NEGATIVE); URINE SPECIFIC GRAVITY 1.025; UROBILINOGEN,URINE NEGATIVE mg/dL (<2.0)
[2017-05-19 06:37] LABS: AMORPHOUS SEDIMENT,URINE TRACE /HPF
[2017-05-19 06:46] LABS: ABSOLUTE BASOPHILS # (AUTO) 0.1 10^3/uL (0.0-0.2); ABSOLUTE EOSINOPHILS # (AUTO) 0.1 10^3/uL (0.0-0.6); ABSOLUTE MONOCYTES (AUTO) 0.9 10^3/uL (0.1-1.4); ABSOLUTE NEUT (AUTO) 5.3 10^3/uL (1.7-8.2); BASOPHILS % (AUTO) 0.7 % (0-2); EOSINOPHILS % (AUTO) 1.8 % (0-6); HEMATOCRIT 31.1 % (37.9-51.0); HGB HCT DIFFERENCE -0.2; LYMPHOCYTES % (AUTO) 13.8 % (13-45); MEAN CORPUSCULAR HEMOGLOBIN 28.2 pg (27.0-33.4); MEAN CORPUSCULAR HGB CONC 33.2 g/dL (32.0-36.0); MEAN CORPUSCULAR VOLUME 85 fl (80-97); MONOCYTES % (AUTO) 12.4 % (3-13); RED BLOOD COUNT 3.66 10^6/uL (4.35-5.55); RED CELL DISTRIBUTION WIDTH 17.5 % (11.5-14.0); SEGMENTED NEUTROPHILS % (AUTO) 71.3 % (42-78); WHITE BLOOD COUNT 7.4 10^3/uL (4.0-10.5)
[2017-05-19 06:50] LABS: ANION GAP 6 (5-19); BLOOD UREA NITROGEN 10 mg/dL (7-20); CALCIUM 8.6 mg/dL (8.4-10.2); CARBON DIOXIDE 30 mmol/L (22-30); CHLORIDE 108 mmol/L (98-107); CREATININE RESULT 0.93 mg/dL (0.52-1.25); GLUCOSE 82 mg/dL (75-110); POTASSIUM 3.5 mmol/L (3.6-5.0); SODIUM 144.4 mmol/L (137-145)
[2017-05-19 06:53] LABS: HEMOGLOBIN 10.3 g/dL (13.5-17.0)
[2017-05-19] MEDS: COLLAGENASE CLOSTRIDIUM HIST. OINT 30 GM TOP SCH ×2 (09:29→18:06)
[2017-05-19] MEDS: AMIODARONE HCL 200 MG TABLET NG SCH ×2 (09:29→18:06)
[2017-05-19] MEDS: ENOXAPARIN SODIUM INJ 30 MG/0.3 ML DISP.SYRIN SUBCUT SCH ×2 (09:29→22:17)
[2017-05-19] MEDS: FUROSEMIDE INJ/PF 20 MG/2 ML SDV IV SCH ×2 (09:29→22:16)
[2017-05-19] MEDS ORDERED: DEXAMETHASONE SOD PHOSPHATE INJ 4 MG/1 ML VIAL IV PRN (10:04)
[2017-05-19] MEDS ORDERED: SCOPOLAMINE HYDROBROMIDE 1.5 MG PATCH.TD72 TD ONE (20:00)
--- NOTE | 2017-05-19 21:32 | PDOC PROGRESS REPORT ---
Subjective Progress Note for:: 05/19/17 Subjective:: Patient was extubated from mechanical ventilation today, is seems to be tolerating the extubation very well ,presently on facemask oxygen therapy patient is a DNR status. Physical Exam Vital Signs: Temp Pulse Resp BP Pulse Ox 98.8 F 70 26 H 95/82 L 99 05/19/17 19:49 05/19/17 19:40 05/19/17 18:33 05/19/17 18:33 05/19/17 18:33 Intake & Output 05/18/17 05/19/17 05/20/17 06:59 06:59 06:59 Intake Total 4102 2747 380 Output Total 3260 8125 1335 Balance 842 -300 -163 Weight 73.6 kg 72.7 kg General appearance: PRESENT: mild distress Eye exam: PRESENT: PERRLA Respiratory exam: PRESENT: clear to auscultation srikanth Cardiovascular exam: PRESENT: +S1, +S2 GI/Abdominal exam: PRESENT: soft Neurological exam: PRESENT: alert Results Laboratory Results: 05/19/17 06:20 05/19/17 06:20 05/18/17 05/19/17 05/19/17 19:14 06:20 06:20 WBC 7.4 RBC 3.66 L Hgb 10.3 L D Hct 31.1 L MCV 85 MCH 28.2 MCHC 33.2 RDW 17.5 H Plt Count 171 Seg Neutrophils % 71.3 Lymphocytes % 13.8 Monocytes % 12.4 Eosinophils % 1.8 Basophils % 0.7 Absolute Neutrophils 5.3 Absolute Lymphocytes 1.0 Absolute Monocytes 0.9 Absolute Eosinophils 0.1 Absolute Basophils 0.1 Sodium 144.4 Potassium 3.5 L Chloride 108 H Carbon Dioxide 30 Anion Gap 6 BUN 10 Creatinine 0.93 Est GFR ( Amer) > 60 Est GFR (Non-Af Amer) > 60 Glucose 82 Calcium 8.6 Urine Color Urine Appearance Urine pH Ur Specific Thatcher Urine Protein Urine Glucose (UA) Urine Ketones Urine Blood Urine Nitrite Ur Leukocyte Esterase Urine WBC (Auto) Urine RBC (Auto) Stool Occult Blood Blood Type O POSITIVE Antibody Screen NEGATIVE 05/19/17 05/19/17 06:20 06:20 WBC RBC Hgb Hct MCV MCH MCHC RDW Plt Count Seg Neutrophils % Lymphocytes % Monocytes % Eosinophils % Basophils % Absolute Neutrophils Absolute Lymphocytes Absolute Monocytes Absolute Eosinophils Absolute Basophils Sodium Potassium Chloride Carbon Dioxide Anion Gap BUN Creatinine Est GFR ( Amer) Est GFR (Non-Af Amer) Glucose Calcium Urine Color YELLOW Urine Appearance SLIGHTLY-CLOUDY Urine pH 5.0 Ur Specific Thatcher 1.025 Urine Protein 30 H Urine Glucose (UA) NEGATIVE Urine Ketones NEGATIVE Urine Blood NEGATIVE Urine Nitrite NEGATIVE Ur Leukocyte Esterase NEGATIVE Urine WBC (Auto) 2 Urine RBC (Auto) 5 Stool Occult Blood NEGATIVE Blood Type Antibody Screen 05/05/17 05/05/17 05/05/17 17:15 17:15 23:30 Creatine Kinase 123 160 CK-MB (CK-2) 3.17 Troponin I 0.312 NT-Pro-B Natriuret Pep 05/05/17 05/06/17 05/06/17 23:30 04:35 04:35 Creatine Kinase 207 H CK-MB (CK-2) 4.65 H 4.97 H Troponin I 0.432 0.375 NT-Pro-B Natriuret Pep 05/08/17 05/08/17 05/09/17 12:00 12:00 06:15 Creatine Kinase 186 H 197 H CK-MB (CK-2) 0.65 Troponin I 0.060 NT-Pro-B Natriuret Pep 05/09/17 05/13/17 05/13/17 06:15 10:50 10:50 Creatine Kinase 129 CK-MB (CK-2) 0.75 0.67 Troponin I 0.056 0.039 NT-Pro-B Natriuret Pep 70965 H 05/13/17 05/13/17 17:45 17:45 Creatine Kinase 95 CK-MB (CK-2) 1.34 Troponin I 0.083 NT-Pro-B Natriuret Pep Impressions: Head CT 05/05/17 12:43 IMPRESSION: MILD CHRONIC CHANGES OF ATROPHY AND MICROVASCULAR ISCHEMIA. NO ACUTE PROCESS. KUB X-Ray 05/05/17 13:59 IMPRESSION: NG tube appears to be in satisfactory position. Mild small-bowel distention as described. 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 There is no plain film evidence for bony involvement by osteomyelitis. Other findings as noted above Chest/Abdomen CTA 05/13/17 00:00 IMPRESSION: No CT angio evidence of acute pulmonary emboli or thoracic aortic dissection. Bilateral complete collapse of the lower lobes with small to moderate bilateral pleural effusions. Chest X-Ray 05/18/17 08:08 IMPRESSION: Stable trace bilateral pleural effusions. No dense lobar consolidation worrisome for pneumonia. Tubes and lines in good positioning Assessment & Plan - Diagnosis (1) Septic shock Is this a current diagnosis for this admission?: Yes (2) Metabolic acidosis with increased anion gap and accumulation of organic acids Is this a current diagnosis for this admission?: Yes (3) Elevated troponin Is this a current diagnosis for this admission?: Yes (4) Pseudomonal sepsis Is this a current diagnosis for this admission?: Yes (5) Anemia Qualifiers: Anemia type: unspecified type Qualified Code(s): D64.9 - Anemia, unspecified Is this a current diagnosis for this admission?: Yes (6) Acute respiratory failure Qualifiers: Respiratory failure complication: unspecified whether with hypoxia or hypercapnia Qualified Code(s): J96.00 - Acute respiratory failure, unspecified whether with hypoxia or hypercapnia Is this a current diagnosis for this admission?: Yes
--- NOTE | 2017-05-19 23:59 | EKG REPORT ---
SEVERITY:- ABNORMAL ECG - SINUS RHYTHM NONSPECIFIC T ABNORMALITIES, DIFFUSE LEADS BORDERLINE PROLONGED QT INTERVAL LVH : Confirmed by: Wilder Rizzo 19-May-2017 23:58:55
[2017-05-20] MEDS: PIPERACILLIN SODIUM/TAZOBACTAM 3.375 GM in NORMAL SALINE 100 ML IV SCH ×2 (00:17→05:17)
[2017-05-20] MEDS: LANSOPRAZOLE 30 MG TAB.RAP.DR PO SCH ×2 (05:17→17:33)
[2017-05-20 05:23] LABS: ARTERIAL BLOOD BASE EXCESS 6.3 mmol/L; ARTERIAL BLOOD O2 SATURATION 98.9 % (94-98)
[2017-05-20 05:24] LABS: ABSOLUTE LYMPHOCYTES (AUTO) 0.5 10^3/uL (0.5-4.7); ABSOLUTE MONOCYTES (AUTO) 0.9 10^3/uL (0.1-1.4); ABSOLUTE NEUT (AUTO) 6.6 10^3/uL (1.7-8.2); BASOPHILS % (AUTO) 0.3 % (0-2); EOSINOPHILS % (AUTO) 0.2 % (0-6); LYMPHOCYTES % (AUTO) 6.8 % (13-45); MEAN CORPUSCULAR HEMOGLOBIN 28.3 pg (27.0-33.4); MEAN CORPUSCULAR HGB CONC 33.4 g/dL (32.0-36.0); MEAN CORPUSCULAR VOLUME 85 fl (80-97); MONOCYTES % (AUTO) 10.8 % (3-13); RED BLOOD COUNT 3.55 10^6/uL (4.35-5.55); SEGMENTED NEUTROPHILS % (AUTO) 81.9 % (42-78)
[2017-05-20 05:41] LABS: ALANINE AMINOTRANSFERASE 41 U/L (21-72); ALBUMIN 2.5 g/dL (3.5-5.0); ALKALINE PHOSPHATASE 62 U/L (38-126); ANION GAP 7 (5-19); ASPARTATE AMINO TRANSFERASE 29 U/L (17-59); BILIRUBIN,DIRECT 0.4 mg/dL (0.0-0.4); BILIRUBIN,TOTAL 0.4 mg/dL (0.2-1.3); BLOOD UREA NITROGEN 18 mg/dL (7-20); CALCIUM 8.5 mg/dL (8.4-10.2); CARBON DIOXIDE 30 mmol/L (22-30); CHLORIDE 106 mmol/L (98-107); CREATININE RESULT 0.99 mg/dL (0.52-1.25); GLUCOSE 112 mg/dL (75-110); MAGNESIUM 1.9 mg/dL (1.6-2.3); POTASSIUM 3.6 mmol/L (3.6-5.0); SODIUM 142.9 mmol/L (137-145); TOTAL PROTEIN 5.4 g/dL (6.3-8.2)
[2017-05-20] MEDS: COLLAGENASE CLOSTRIDIUM HIST. OINT 30 GM TOP SCH ×2 (10:51→17:34)
[2017-05-20] MEDS: ENOXAPARIN SODIUM INJ 30 MG/0.3 ML DISP.SYRIN SUBCUT SCH ×2 (10:51→22:23)
[2017-05-20] MEDS: FUROSEMIDE INJ/PF 20 MG/2 ML SDV IV SCH ×2 (10:52→22:23)
[2017-05-20] MEDS: AMIODARONE HCL 200 MG TABLET NG SCH ×2 (10:54→17:32)
--- NOTE | 2017-05-20 16:22 | PROGRESS NOTE E ---
Progress Note NAME: MOHAN BALLESTEROS : 1940 AGE: 76Y DATE: 05/20/2017 ROOM: 609 SUBJECTIVE: The patient appears to be nonverbal. He does not answer any questions but appears to be comfortable. He has no further ventricular arrhythmia on amiodarone and also is in sinus rhythm. There is trace pedal edema. The patient does not seem to have PND or orthopnea. OBJECTIVE: GENERAL: On examination the patient is well built but looks chronically ill. VITAL SIGNS: He was afebrile with a temperature of 98.1 degrees Fahrenheit earlier. At present, his pulse is 70 beats per minute. Blood pressure is 125/72. Note that the patient is off all pressors. Respirations are 24 per minute. O2 oximetry is 99% on 2 liters nasal cannula. HEAD: Atraumatic/normocephalic. EYES: Pupils are equal, round, reactive to, light and accommodation. Extraocular motions are normal. EARS, NOSE, AND THROAT: Negative. NECK: Supple. At present, there is no JVD. Carotids are equal. There is no bruit. There is no lymphadenopathy. There is no goiter. Trachea is central. CHEST: Lungs show a few crackles in the bases which are dry. HEART: S1 and S2 is heard. There is no S3 gallop. There is no S4 gallop. There is a systolic murmur in the left sternal border and the apex. There is no rub. ABDOMEN: Soft, nontender. There is no hepatosplenomegaly, and bowel sounds are well heard. There are no tender areas or masses. EXTREMITIES: Femorals are diminished. There is no femoral bruit. Leg pulses are diminished. There is trace pedal edema. There is no cyanosis or clubbing. Capillary refill is normal. There is no calf tenderness. CENTRAL NERVOUS SYSTEM: The patient is conscious but nonverbal but moves all 4 extremities. PSYCHIATRIC: Examination could not be made since the patient is not cooperative. INTAKE/OUTPUT: The patient's 24-hour intake has been 1368 mL, output is 2575 mL. DIAGNOSTIC DATA: The patient's EKG shows sinus rhythm, nonspecific T changes in the inferolateral leads. Note that the patient was extubated yesterday. The patient's sodium is 142.9, potassium is 3.6, chloride is 106, CO2 is 30. The patient's BUN is 18, creatinine is 0.99, GFR is greater than 60, glucose is 112. The patient's magnesium is normal at 1.9. His calcium is normal at 8.5. His liver function tests are normal. His albumin is 2.5. Total protein is 5.4. The patient's white count is 8,000, hemoglobin is 10, hematocrit is 30, the patient's platelet count is 197,000. The patient's ABGs today show a pH of 7.44, pCO2 is slightly elevated at 47.6, pO2 is good at 144.9, and O2 saturations are 98.9% on nasal cannula of 4 liters. Now the patient has been downgraded to 2 liters. IMPRESSION: 1. ACUTE RESPIRATORY FAILURE, PATIENT NOW EXTUBATED. 2. CORONARY ARTERY DISEASE. THE PATIENT DOES NOT SEEM TO BE HAVING ANY ANGINA. 3. PULMONARY EDEMA, AT PRESENT COMPENSATED. 4. PNEUMONIA SEEMS TO HAVE RESOLVED. 5. HYPOTENSION. THIS SEEMS TO HAVE ALSO RESOLVED. THE PATIENT'S BLOOD PRESSURE IS ALSO STABLE. 6. VENTRICULAR TACHYCARDIA WITH NO EVIDENCE OF AMIODARONE. 7. ATRIAL FIBRILLATION WITH RAPID VENTRICULAR RESPONSE. AT PRESENT, THE PATIENT IS IN SINUS RHYTHM. 8. PERIPHERAL VASCULAR DISEASE. AT PRESENT, THE PATIENT IS ASYMPTOMATIC FROM THAT. 9. THE PATIENT HAD ELEVATED TROPONIN-I WHICH IS BORDERLINE ELEVATION AND PROBABLY MOST LIKELY SECONDARY TO THE CHF. 10. CARDIOMYOPATHY, AT PRESENT SEEMS TO BE COMPENSATED. PLAN: The patient seems to be stable, although is nonverbal, probably has some form of dementia. Note, the patient's medications were reviewed. Twenty-five minutes spent on this patient with more than 50% of the time spent on direct patient care. Discussed the case with the other caregivers on this patient's case. Medical decision making was of moderate complexity. Will follow with you. DICTATING PHYSICIAN: ELENA BENSON M.D. [id number] PHY#: [id number] ID: [id number] JOB#: [id number] ACCT: [id number] cc:ELENA BENSON M.D. >
--- NOTE | 2017-05-20 16:26 | PDOC PROGRESS REPORT ---
Subjective Progress Note for:: 05/20/17 Subjective:: Patient is s/p extubation. Remain on supplemental oxygen via nasal cannula. Family at bedside. Tolerating enteral tube feeding. No reported fever. Patient remain a DNR. Physical Exam Vital Signs: Temp Pulse Resp BP Pulse Ox 98.4 F 62 28 H 136/78 H 100 05/20/17 05:31 05/20/17 08:00 05/20/17 14:00 05/20/17 13:33 05/20/17 14:00 Intake & Output 05/19/17 05/20/17 05/21/17 06:59 06:59 06:59 Intake Total 2747 1368 Output Total 3275 8197 1179 Balance -524 -8289 -117 Weight 72.7 kg 70 kg General appearance: PRESENT: no acute distress, cooperative Head exam: PRESENT: atraumatic, normocephalic Mouth exam: PRESENT: moist, other - NGT in situ Respiratory exam: PRESENT: clear to auscultation srikanth, decreased breath sounds - at lung bases Cardiovascular exam: PRESENT: RRR, +S1, +S2, other - pacemaker rhythm on monitor. ABSENT: diastolic murmur, rubs, systolic murmur GI/Abdominal exam: PRESENT: normal bowel sounds, soft. ABSENT: distended, guarding, mass, organolmegaly, rebound, tenderness Extremities exam: PRESENT: left AKA. ABSENT: pedal edema Neurological exam: PRESENT: alert, awake Psychiatric exam: ABSENT: agitated Skin exam: PRESENT: dry, intact, warm. ABSENT: cyanosis, rash Results Laboratory Results: 05/20/17 05:10 05/20/17 05:10 05/20/17 05/20/17 05/20/17 05:05 05:10 05:10 WBC 8.0 RBC 3.55 L Hgb 10.0 L Hct 30.0 L MCV 85 MCH 28.3 MCHC 33.4 RDW 18.0 H Plt Count 192 Seg Neutrophils % 81.9 H Lymphocytes % 6.8 L Monocytes % 10.8 Eosinophils % 0.2 Basophils % 0.3 Absolute Neutrophils 6.6 Absolute Lymphocytes 0.5 Absolute Monocytes 0.9 Absolute Eosinophils 0.0 Absolute Basophils 0.0 Carbonic Acid 1.43 H HCO3/H2CO3 Ratio 21:1 ABG pH 7.44 ABG pCO2 47.6 H ABG pO2 144.9 H ABG HCO3 31.4 H ABG O2 Saturation 98.9 H ABG Base Excess 6.3 FiO2 4 LITERS Sodium 142.9 Potassium 3.6 Chloride 106 Carbon Dioxide 30 Anion Gap 7 BUN 18 Creatinine 0.99 Est GFR ( Amer) > 60 Est GFR (Non-Af Amer) > 60 Glucose 112 H Calcium 8.5 Magnesium 1.9 Total Bilirubin 0.4 AST 29 ALT 41 Alkaline Phosphatase 62 Total Protein 5.4 L Albumin 2.5 L 05/05/17 05/05/17 05/05/17 17:15 17:15 23:30 Creatine Kinase 123 160 CK-MB (CK-2) 3.17 Troponin I 0.312 NT-Pro-B Natriuret Pep 05/05/17 05/06/17 05/06/17 23:30 04:35 04:35 Creatine Kinase 207 H CK-MB (CK-2) 4.65 H 4.97 H Troponin I 0.432 0.375 NT-Pro-B Natriuret Pep 05/08/17 05/08/17 05/09/17 12:00 12:00 06:15 Creatine Kinase 186 H 197 H CK-MB (CK-2) 0.65 Troponin I 0.060 NT-Pro-B Natriuret Pep 05/09/17 05/13/17 05/13/17 06:15 10:50 10:50 Creatine Kinase 129 CK-MB (CK-2) 0.75 0.67 Troponin I 0.056 0.039 NT-Pro-B Natriuret Pep 29314 H 05/13/17 05/13/17 17:45 17:45 Creatine Kinase 95 CK-MB (CK-2) 1.34 Troponin I 0.083 NT-Pro-B Natriuret Pep Impressions: Head CT 05/05/17 12:43 IMPRESSION: MILD CHRONIC CHANGES OF ATROPHY AND MICROVASCULAR ISCHEMIA. NO ACUTE PROCESS. KUB X-Ray 05/05/17 13:59 IMPRESSION: NG tube appears to be in satisfactory position. Mild small-bowel distention as described. 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 There is no plain film evidence for bony involvement by osteomyelitis. Other findings as noted above Chest/Abdomen CTA 05/13/17 00:00 IMPRESSION: No CT angio evidence of acute pulmonary emboli or thoracic aortic dissection. Bilateral complete collapse of the lower lobes with small to moderate bilateral pleural effusions. Chest X-Ray 05/18/17 08:08 IMPRESSION: Stable trace bilateral pleural effusions. No dense lobar consolidation worrisome for pneumonia. Tubes and lines in good positioning Assessment & Plan - Diagnosis (1) Pseudomonal sepsis Is this a current diagnosis for this admission?: Yes (2) Leg abrasion, infected Qualifiers: Laterality: left Is this a current diagnosis for this admission?: Yes (3) Acute respiratory failure with hypercapnia Is this a current diagnosis for this admission?: Yes (4) Hypokalemia due to inadequate potassium intake Is this a current diagnosis for this admission?: Yes (5) Atrial fibrillation with RVR Is this a current diagnosis for this admission?: Yes (6) Hypotension Qualifiers: Hypotension type: unspecified hypotension type Qualified Code(s): I95.9 - Hypotension, unspecified Is this a current diagnosis for this admission?: Yes - Time Time Spent with patient: 25-34 minutes Medications reviewed and adjusted accordingly: Yes Anticipated discharge: SNF Within: Other - Inpatient Certification Based on my medical assessment, after consideration of the patient's comorbidities, presenting symptoms, or acuity I expect that the services needed warrant INPATIENT care.: Yes I certify that my determination is in accordance with my understanding of Medicare's requirements for reasonable and necessary INPATIENT services [42 CFR 412.3e].: Yes Medical Necessity: Need Close Monitoring Due to Risk of Patient Decompensation, Need For IV Fluids, Need For Continuous Telemetry Monitoring, Risk of Complication if Not Cared For in Hospital Post Hospital Care: D/C or Transfer Summary - Plan Summary Plan Summary: Continue current medication management. Down grade to telemetry status.
[2017-05-21] MEDS: LANSOPRAZOLE 30 MG TAB.RAP.DR PO SCH ×2 (05:34→16:42)
--- NOTE | 2017-05-21 05:53 | PDOC PROGRESS REPORT ---
Subjective Progress Note for:: 05/18/17 Subjective:: Patient showing improvement. Blood pressure has been stable. There is marked decrease in ventricular tachyarrhythmia as well as atrial tachyarrhythmia on amiodarone, continue with amiodarone 400 p.o. twice daily. Patient remains intubated, sedated, patient however looks comfortable and in acute distress. Medications reviewed. Physical Exam Vital Signs: Temp Pulse Resp BP Pulse Ox 99.9 F 73 17 106/70 96 05/18/17 21:43 05/18/17 20:00 05/18/17 23:00 05/18/17 22:58 05/18/17 23:00 Intake & Output 05/17/17 05/18/17 05/19/17 06:59 06:59 06:59 Intake Total 4523 4102 1553 Output Total 4460 3260 2225 Balance 63 842 -672 Weight 72.7 kg 73.6 kg Exam: GENERAL: well-nourished and in no acute distress. Patient is intubated and sedated. Orientation cannot be checked HEAD: Atraumatic, normocephalic. EYES: Pupils equal round and reactive to light, extraocular movements could not be checked, sclera anicteric, conjunctiva are normal. ENT: TMs normal, nares patent, oropharynx clear without exudates. Moist mucous membranes. No oral ulcerations or bleeding gums noted NECK: supple without lymphadenopathy or JVD. Trachea is central. No cervical or axillary lymphadenopathy noted. Carotids are 2+ LUNGS: Breath sounds mostly clear to auscultation patient is noted to have bibasal crackles at the extreme bases CHEST: Palpation of the chest wall shows no significant chest wall tenderness or abnormalities. HEART: [place] [employer], No PSH, 2/6 CYNDIE aortic area, 1/6 reyna systolic murmur mitral area , no rubs or gallops. ABDOMEN: Soft, no significant tenderness appreciated, normoactive bowel sounds. No guarding, no rebound. No rigidity noted . No masses appreciated. EXTREMITIES: Pedal pulses are 1-2+, no calf tenderness noted, 1+ pedal edema noted. No clubbing or cyanosis. 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 Extremities slightly hypotonic. 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 PSYCH: This cannot be evaluated. Patient cannot participate. SKIN: No significant ecchymosis, rash, or signs of pruritus noted. MUSCULOSKELETAL EXAM: No significant joint swelling noted. Patient cannot participate in musculoskeletal exam Results Laboratory Results: 05/18/17 18:00 05/18/17 18:00 05/18/17 05/18/17 05/18/17 04:55 08:20 08:23 WBC 6.6 RBC 2.91 L Hgb 7.8 L Hct 24.4 L MCV 84 MCH 26.8 L MCHC 31.9 L RDW 19.6 H Plt Count 175 Seg Neutrophils % 72.7 Lymphocytes % 11.4 L Monocytes % 12.7 Eosinophils % 2.4 Basophils % 0.8 Absolute Neutrophils 4.8 Absolute Lymphocytes 0.8 Absolute Monocytes 0.8 Absolute Eosinophils 0.2 Absolute Basophils 0.0 Carbonic Acid 1.15 HCO3/H2CO3 Ratio 26:1 ABG pH 7.51 H ABG pCO2 38.3 ABG pO2 99.1 ABG HCO3 30.0 H ABG O2 Saturation 98.0 ABG Base Excess 6.6 FiO2 30% Sodium 144.3 Potassium 3.4 L Chloride 109 H Carbon Dioxide 29 Anion Gap 6 BUN 8 Creatinine 0.90 Est GFR ( Amer) > 60 Est GFR (Non-Af Amer) > 60 Glucose 124 H Calcium 8.2 L Blood Type Antibody Screen 05/18/17 05/18/17 05/18/17 18:00 18:00 19:14 WBC 6.8 RBC 2.90 L Hgb 7.8 L Hct 24.3 L MCV 84 MCH 26.8 L MCHC 32.0 RDW 19.7 H Plt Count 179 Seg Neutrophils % Lymphocytes % Monocytes % Eosinophils % Basophils % Absolute Neutrophils Absolute Lymphocytes Absolute Monocytes Absolute Eosinophils Absolute Basophils Carbonic Acid HCO3/H2CO3 Ratio ABG pH ABG pCO2 ABG pO2 ABG HCO3 ABG O2 Saturation ABG Base Excess FiO2 Sodium 141.5 Potassium 3.8 Chloride 108 H Carbon Dioxide 31 H Anion Gap 3 L BUN 10 Creatinine 0.90 Est GFR ( Amer) > 60 Est GFR (Non-Af Amer) > 60 Glucose 97 Calcium 8.2 L Blood Type O POSITIVE Antibody Screen NEGATIVE 05/05/17 05/05/17 05/05/17 17:15 17:15 23:30 Creatine Kinase 123 160 CK-MB (CK-2) 3.17 Troponin I 0.312 NT-Pro-B Natriuret Pep 05/05/17 05/06/17 05/06/17 23:30 04:35 04:35 Creatine Kinase 207 H CK-MB (CK-2) 4.65 H 4.97 H Troponin I 0.432 0.375 NT-Pro-B Natriuret Pep 05/08/17 05/08/17 05/09/17 12:00 12:00 06:15 Creatine Kinase 186 H 197 H CK-MB (CK-2) 0.65 Troponin I 0.060 NT-Pro-B Natriuret Pep 05/09/17 05/13/17 05/13/17 06:15 10:50 10:50 Creatine Kinase 129 CK-MB (CK-2) 0.75 0.67 Troponin I 0.056 0.039 NT-Pro-B Natriuret Pep 94710 H 05/13/17 05/13/17 17:45 17:45 Creatine Kinase 95 CK-MB (CK-2) 1.34 Troponin I 0.083 NT-Pro-B Natriuret Pep Impressions: Head CT 05/05/17 12:43 IMPRESSION: MILD CHRONIC CHANGES OF ATROPHY AND MICROVASCULAR ISCHEMIA. NO ACUTE PROCESS. KUB X-Ray 05/05/17 13:59 IMPRESSION: NG tube appears to be in satisfactory position. Mild small-bowel distention as described. 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 There is no plain film evidence for bony involvement by osteomyelitis. Other findings as noted above Chest/Abdomen CTA 05/13/17 00:00 IMPRESSION: No CT angio evidence of acute pulmonary emboli or thoracic aortic dissection. Bilateral complete collapse of the lower lobes with small to moderate bilateral pleural effusions. Chest X-Ray 05/18/17 08:08 IMPRESSION: Stable trace bilateral pleural effusions. No dense lobar consolidation worrisome for pneumonia. Tubes and lines in good positioning Assessment & Plan - Diagnosis (1) Acute respiratory failure Qualifiers: Respiratory failure complication: unspecified whether with hypoxia or hypercapnia Qualified Code(s): J96.00 - Acute respiratory failure, unspecified whether with hypoxia or hypercapnia Is this a current diagnosis for this admission?: Yes (2) Coronary artery disease Qualifiers: Coronary Disease-Associated Artery/Lesion type: unspecified vessel or lesion type Associated angina: angina presence unspecified Is this a current diagnosis for this admission?: Yes (3) Pulmonary edema Qualifiers: Chronicity: acute Qualified Code(s): J81.0 - Acute pulmonary edema Is this a current diagnosis for this admission?: Yes (4) Pneumonia Qualifiers: Pneumonia type: due to unspecified organism Lung location: unspecified part of lung Is this a current diagnosis for this admission?: Yes (5) Hypotension Qualifiers: Hypotension type: unspecified hypotension type Qualified Code(s): I95.9 - Hypotension, unspecified Is this a current diagnosis for this admission?: Yes (6) Ventricular tachycardia Is this a current diagnosis for this admission?: Yes (7) Atrial fibrillation with RVR Is this a current diagnosis for this admission?: Yes (8) Peripheral vascular disease Is this a current diagnosis for this admission?: Yes - Notes Notes: Acute respiratory failure: Currently intubated and being artificially ventilated. It seems respiratory failure was precipitated by acute pulmonary edema. This was most likely cardiogenic. Continue with baseline diuretic therapy. Coronary artery disease: 2D echo shows anterior wall and apical akinesis. 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 LVEF is severely reduced. Medical management will be gradually optimized. Patient noted to have stent in the LAD. Pulmonary edema: Most likely related to LV systolic dysfunction, cannot rule out aspiration. Patient blood pressure needed to be supported by transient Levophed infusion. Currently off Levophed. Pneumonia: Continue antibiotic therapy. Hypotension: Most likely related to severe LV systolic dysfunction, ischemia, cardiac dysrhythmia. At this point continue to observe and institute vasopressor support as needed. Peripheral vascular disease: No evidence of acute limb ischemia at this point but continue to observe. Ventricular tachycardia: Patient has a functioning defibrillator. Continue p.o. amiodarone. Atrial fibrillation with rapid ventricular response: Will recommend beta- blockers for rate control and also digoxin if needed. Probably a marginal candidate for chronic anticoagulation. Have discontinued full dose anticoagulation in view of anemia, have started patient on Lovenox 30 mg subcu every 12. - Time Time with patient: Greater than 35 minutes - CODE STATUS : was discussed, patient remains DO NOT RESUSCITATE. Surrogate decision-maker unchanged. Multiple medical problems were addressed. More than 50% of the time spent coordinating care, discussing management plans with involved caregivers. Management plans discussed with involved personnels. Medical decision making was of moderate to high complexity, patient's has multiple comorbidities. Dr. Montse Carrasquillo to cover from tomorrow. Medications reviewed and adjusted accordingly: Yes
[2017-05-21 06:21] LABS: ABSOLUTE EOSINOPHILS # (AUTO) 0.1 10^3/uL (0.0-0.6); ABSOLUTE MONOCYTES (AUTO) 0.8 10^3/uL (0.1-1.4); ABSOLUTE NEUT (AUTO) 4.8 10^3/uL (1.7-8.2); BASOPHILS % (AUTO) 0.5 % (0-2); EOSINOPHILS % (AUTO) 1.4 % (0-6); HEMATOCRIT 30.8 % (37.9-51.0); HEMOGLOBIN 10.1 g/dL (13.5-17.0); HGB HCT DIFFERENCE -0.5; LYMPHOCYTES % (AUTO) 14.2 % (13-45); MEAN CORPUSCULAR HEMOGLOBIN 27.9 pg (27.0-33.4); MEAN CORPUSCULAR HGB CONC 32.8 g/dL (32.0-36.0); MEAN CORPUSCULAR VOLUME 85 fl (80-97); MONOCYTES % (AUTO) 12.4 % (3-13); RED BLOOD COUNT 3.63 10^6/uL (4.35-5.55); RED CELL DISTRIBUTION WIDTH 17.9 % (11.5-14.0); SEGMENTED NEUTROPHILS % (AUTO) 71.5 % (42-78); WHITE BLOOD COUNT 6.8 10^3/uL (4.0-10.5)
[2017-05-21 06:35] LABS: ANION GAP 6 (5-19); BLOOD UREA NITROGEN 18 mg/dL (7-20); CALCIUM 8.4 mg/dL (8.4-10.2); CARBON DIOXIDE 33 mmol/L (22-30); CHLORIDE 104 mmol/L (98-107); CREATININE RESULT 0.86 mg/dL (0.52-1.25); GLUCOSE 118 mg/dL (75-110); MAGNESIUM 1.9 mg/dL (1.6-2.3); POTASSIUM 3.2 mmol/L (3.6-5.0); SODIUM 143.2 mmol/L (137-145)
--- NOTE | 2017-05-21 09:53 | PDOC PROGRESS REPORT ---
Subjective Progress Note for:: 05/21/17 Subjective:: No observed difficulty with breathing. No reported fever or chills. Tolerating NG tube feeding. Patient remain a DNR. Physical Exam Vital Signs: Temp Pulse Resp BP Pulse Ox 98.9 F 70 15 142/83 H 98 05/21/17 07:22 05/21/17 07:47 05/21/17 07:22 05/21/17 07:22 05/21/17 07:22 Intake & Output 05/20/17 05/21/17 05/22/17 06:59 06:59 06:59 Intake Total 1368 1901 120 Output Total 2575 2610 Balance -1207 -819 120 Weight 70 kg 70 kg Physical Exam: General appearance: PRESENT: no acute distress, cooperative Head exam: PRESENT: atraumatic, normocephalic Mouth exam: PRESENT: moist, other - NGT in situ Respiratory exam: PRESENT: clear to auscultation srikanth, decreased breath sounds - at lung bases Cardiovascular exam: PRESENT: RRR, +S1, +S2, other - pacemaker rhythm on monitor. ABSENT: diastolic murmur, rubs, systolic murmur GI/Abdominal exam: PRESENT: normal bowel sounds, soft. ABSENT: distended, guarding, mass, organomegaly, rebound, tenderness Extremities exam: PRESENT: left AKA. ABSENT: pedal edema Neurological exam: PRESENT: alert, awake Psychiatric exam: ABSENT: agitated Skin exam: PRESENT: dry, intact, warm. ABSENT: cyanosis, rash Results Laboratory Results: 05/21/17 05:30 05/21/17 05:30 05/21/17 05/21/17 05:30 05:30 WBC 6.8 RBC 3.63 L Hgb 10.1 L Hct 30.8 L MCV 85 MCH 27.9 MCHC 32.8 RDW 17.9 H Plt Count 201 Seg Neutrophils % 71.5 Lymphocytes % 14.2 Monocytes % 12.4 Eosinophils % 1.4 Basophils % 0.5 Absolute Neutrophils 4.8 Absolute Lymphocytes 1.0 Absolute Monocytes 0.8 Absolute Eosinophils 0.1 Absolute Basophils 0.0 Sodium 143.2 Potassium 3.2 L Chloride 104 Carbon Dioxide 33 H Anion Gap 6 BUN 18 Creatinine 0.86 Est GFR ( Amer) > 60 Est GFR (Non-Af Amer) > 60 Glucose 118 H Calcium 8.4 Magnesium 1.9 05/05/17 05/05/17 05/05/17 17:15 17:15 23:30 Creatine Kinase 123 160 CK-MB (CK-2) 3.17 Troponin I 0.312 NT-Pro-B Natriuret Pep 05/05/17 05/06/17 05/06/17 23:30 04:35 04:35 Creatine Kinase 207 H CK-MB (CK-2) 4.65 H 4.97 H Troponin I 0.432 0.375 NT-Pro-B Natriuret Pep 05/08/17 05/08/17 05/09/17 12:00 12:00 06:15 Creatine Kinase 186 H 197 H CK-MB (CK-2) 0.65 Troponin I 0.060 NT-Pro-B Natriuret Pep 05/09/17 05/13/17 05/13/17 06:15 10:50 10:50 Creatine Kinase 129 CK-MB (CK-2) 0.75 0.67 Troponin I 0.056 0.039 NT-Pro-B Natriuret Pep 88807 H 05/13/17 05/13/17 17:45 17:45 Creatine Kinase 95 CK-MB (CK-2) 1.34 Troponin I 0.083 NT-Pro-B Natriuret Pep Impressions: Head CT 05/05/17 12:43 IMPRESSION: MILD CHRONIC CHANGES OF ATROPHY AND MICROVASCULAR ISCHEMIA. NO ACUTE PROCESS. KUB X-Ray 05/05/17 13:59 IMPRESSION: NG tube appears to be in satisfactory position. Mild small-bowel distention as described. 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 There is no plain film evidence for bony involvement by osteomyelitis. Other findings as noted above Chest/Abdomen CTA 05/13/17 00:00 IMPRESSION: No CT angio evidence of acute pulmonary emboli or thoracic aortic dissection. Bilateral complete collapse of the lower lobes with small to moderate bilateral pleural effusions. Chest X-Ray 05/18/17 08:08 IMPRESSION: Stable trace bilateral pleural effusions. No dense lobar consolidation worrisome for pneumonia. Tubes and lines in good positioning Assessment & Plan - Diagnosis (1) Pseudomonal sepsis Is this a current diagnosis for this admission?: Yes (2) Leg abrasion, infected Qualifiers: Laterality: left Is this a current diagnosis for this admission?: Yes (3) Acute respiratory failure with hypercapnia Is this a current diagnosis for this admission?: Yes (4) Hypokalemia due to inadequate potassium intake Is this a current diagnosis for this admission?: Yes (5) Atrial fibrillation with RVR Is this a current diagnosis for this admission?: Yes (6) Hypotension Qualifiers: Hypotension type: unspecified hypotension type Qualified Code(s): I95.9 - Hypotension, unspecified Is this a current diagnosis for this admission?: Yes - Time Time Spent with patient: 25-34 minutes Medications reviewed and adjusted accordingly: Yes Anticipated discharge: SNF Within: Other - Inpatient Certification Based on my medical assessment, after consideration of the patient's comorbidities, presenting symptoms, or acuity I expect that the services needed warrant INPATIENT care.: Yes I certify that my determination is in accordance with my understanding of Medicare's requirements for reasonable and necessary INPATIENT services [42 CFR 412.3e].: Yes Medical Necessity: Need Close Monitoring Due to Risk of Patient Decompensation, Need For IV Fluids, Need For Continuous Telemetry Monitoring, Risk of Complication if Not Cared For in Hospital Post Hospital Care: D/C or Transfer Summary - Plan Summary Plan Summary: We will replace potassium via NG tube. Maintain on all other current medication management. Repeat BMP in AM. cardiology input appreciated.
[2017-05-21] MEDS ORDERED: POTASSIUM CHLORIDE 20 MEQ/15 ML UDCUP PO SCH (10:00)
[2017-05-21] MEDS: POTASSIUM CHLORIDE 20 MEQ/15 ML UDCUP NG SCH ×2 (10:17→21:59)
[2017-05-21] MEDS: AMIODARONE HCL 200 MG TABLET NG SCH ×2 (10:17→18:16)
[2017-05-21] MEDS: ENOXAPARIN SODIUM INJ 30 MG/0.3 ML DISP.SYRIN SUBCUT SCH ×2 (10:17→22:00)
[2017-05-21] MEDS: FUROSEMIDE INJ/PF 20 MG/2 ML SDV IV SCH ×2 (10:17→21:58)
[2017-05-21] MEDS: COLLAGENASE CLOSTRIDIUM HIST. OINT 30 GM TOP SCH ×2 (10:19→18:16)
[2017-05-21] MEDS ORDERED: LISINOPRIL 10 MG TABLET NG SCH (14:00)
[2017-05-21] MEDS ORDERED: LISINOPRIL 10 MG TABLET NG ONE (14:45)
[2017-05-21] MEDS ORDERED: CARVEDILOL 6.25 MG TABLET NG ONE (15:00)
--- NOTE | 2017-05-21 15:17 | PROGRESS NOTE E ---
Progress Note NAME: MOHAN BALLESTEROS : 1940 AGE: 76Y DATE: 05/18/2017 ROOM: 528 SUBJECTIVE: The patient is a little more verbal today, but still does not talk much. He does answer some questions. He denies any chest pain or discomfort. There is no PND, orthopnea, or shortness of breath. He remains in sinus rhythm. There is no TIA or CVA symptoms. OBJECTIVE: GENERAL: On examination, the patient is well built but looks chronically ill. Note that the patient is still being fed with an NG. VITAL SIGNS: The patient is afebrile with a temperature of 98.9 degrees Fahrenheit, pulse 70 beats per minute, blood pressure is 137/86, respirations are 18 per minute, O2 sat is 100% on room air. Also, the patient does not keep his oxygen on and his sats have been good on 100%. Hence, I have asked the nurse to stop the nasal *------* of oxygen and to recheck the saturation and make sure that it is above 93%. HEAD: Atraumatic/normocephalic. EYES: Pupils are equal, round, regular, reactive to light and accommodation. Extraocular motions are normal. There is no conjunctival pallor. There is no scleral icterus. EARS, NOSE, AND THROAT: Negative. NECK: Supple. There is no JVD. Carotids are equal. There is no bruit. There is no lymphadenopathy. There is no goiter. Trachea is central. CHEST: Lungs show a few crackles in the bases which are dry and less than yesterday. HEART: S1 and S2 is heard. There is no S3 gallop. There is no S4 gallop. There is a systolic murmur in the left sternal border and the apex. There is no rub. ABDOMEN: Soft, nontender. There is no hepatosplenomegaly, and bowel sounds are well heard. There are no tender areas or masses. EXTREMITIES: Femorals are diminished. There are no femoral bruits. Leg pulses are diminished. There is no pedal edema. There is no cyanosis or clubbing. Capillary refill is normal. There is no calf tenderness. CENTRAL NERVOUS SYSTEM: The patient is conscious, a little more verbal than yesterday, but moves all 4 extremities. PSYCHIATRIC: The patient does not appear to be agitated. INTAKE/OUTPUT: The patient's 24-hour intake is 1,901 mL; output is 2,610 mL. DIAGNOSTIC DATA: The patient's white count is 6,800; hemoglobin is 10.1; hematocrit is 30.8; and his platelet count is 201,000. The patient's sodium is 143.2, potassium 3.2, chloride is 104, CO2 is 33. The patient's BUN is 18, creatinine is 0.86, GFR is greater than 60, and his blood sugar is 118. The patient's calcium is 8.4 and his magnesium is 1.9. IMPRESSION: 1. ACUTE RESPIRATORY FAILURE, PATIENT HAS NOW BEEN EXTUBATED. 2. CORONARY ARTERY DISEASE. THE PATIENT DOES NOT SEEM TO HAVE ANY ANGINAL SYMPTOMS. 3. 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 4. PULMONARY EDEMA, SEEMS TO HAVE RESOLVED. 5. PNEUMONIA, SEEMS TO HAVE RESOLVED. 6. HYPOTENSION. THIS SEEMS TO HAVE ALSO RESOLVED. THE PATIENT'S BLOOD PRESSURE IS ALSO STABLE AND THE PATIENT IS OFF PRESSORS. 7. VENTRICULAR TACHYCARDIA. NO EVIDENCE OF RECURRENCE ON AMIODARONE. 8. ATRIAL FIBRILLATION WITH RAPID VENTRICULAR RESPONSE. AT PRESENT, THE PATIENT IS IN SINUS RHYTHM ON AMIODARONE. 9. PERIPHERAL VASCULAR DISEASE. THE PATIENT IS ASYMPTOMATIC AND THERE IS NO EVIDENCE OF LIMB ISCHEMIA. 10. THE PATIENT HAD ELEVATED TROPONIN-I, WHICH IS BORDERLINE ELEVATION AND MOST LIKELY SECONDARY TO THE CHF AND HYPOTENSION. 11. CARDIOMYOPATHY, AT PRESENT SEEMS TO BE COMPENSATED AND THE PATIENT'S LV EJECTION FRACTION WAS 25-30%. 12. HYPOKALEMIA. THE PATIENT IS GETTING POTASSIUM THROUGH THE NG TUBE. WILL RECHECK HIS SMA-7 IN THE A.M. The patient seems to be stable. He also states that his son, Maico, is his surrogate healthcare decision maker. It is also noted that the patient's son is next of kin on the chart in the summary, in the demographics. RECOMMENDATIONS: Will decrease the patient's amiodarone to 200 mg p.o. b.i.d. to give room to start the patient on Coreg 6.25 mg p.o. b.i.d. and also add Lisinopril 10 mg p.o. b.i.d. and see if these can be increased. Also, will recheck the patient's potassium in the a.m. Note that 30 minutes were spent on this patient with more than 50% of the time spent on direct patient care. His medications have been reviewed and discussed with the covering attending physician for Dr. Molina, and the medication changes have been made. Note that the patient is not a candidate for chronic anticoagulation. I discussed the case with the other caregivers on the patient's case. Medical decision making today was of high complexity in view of the making the decision that the patient is not a candidate for chronic anticoagulation therapy, and decreased the patient's amiodarone and starting the patient on ION inhibitor and beta justo, as recommended by the guidelines for a patient with cardiomyopathy. Will follow with you. Thanking you. DICTATING PHYSICIAN: ELENA BENSON M.D. [id number] RANCHO#: [id number] ID: [id number] JOB#: [id number] ACCT: [id number] cc: >
[2017-05-21] MEDS ORDERED: IPRATROPIUM/ALBUTEROL 0.5-2.5 MG/3 ML AMPUL NEB ONE (21:56)
[2017-05-21] MEDS: CARVEDILOL 6.25 MG TABLET NG SCH (21:59)
[2017-05-21] MEDS: LISINOPRIL 10 MG TABLET NG SCH (21:59)
[2017-05-22] MEDS: IPRATROPIUM/ALBUTEROL 0.5-2.5 MG/3 ML AMPUL NEB SCH ×4 (02:13→19:46)
[2017-05-22 04:36] LABS: HEMATOCRIT 38.3 % (37.9-51.0); HGB HCT DIFFERENCE -1.4; MEAN CORPUSCULAR HEMOGLOBIN 27.2 pg (27.0-33.4); MEAN CORPUSCULAR HGB CONC 32.1 g/dL (32.0-36.0); MEAN CORPUSCULAR VOLUME 85 fl (80-97); RED BLOOD COUNT 4.53 10^6/uL (4.35-5.55); RED CELL DISTRIBUTION WIDTH 17.7 % (11.5-14.0); WHITE BLOOD COUNT 12.6 10^3/uL (4.0-10.5)
[2017-05-22 04:40] LABS: HEMOGLOBIN 12.3 g/dL (13.5-17.0)
[2017-05-22 04:44] LABS: ANION GAP 7 (5-19); BLOOD UREA NITROGEN 22 mg/dL (7-20); CALCIUM 8.4 mg/dL (8.4-10.2); CARBON DIOXIDE 28 mmol/L (22-30); CHLORIDE 107 mmol/L (98-107); CREATININE RESULT 0.92 mg/dL (0.52-1.25); GLUCOSE 116 mg/dL (75-110); SODIUM 142.4 mmol/L (137-145)
[2017-05-22 04:56] LABS: POTASSIUM 4.1 mmol/L (3.6-5.0)
[2017-05-22] MEDS: LANSOPRAZOLE 30 MG TAB.RAP.DR PO SCH ×2 (05:03→18:50)
[2017-05-22] MEDS: ENOXAPARIN SODIUM INJ 30 MG/0.3 ML DISP.SYRIN SUBCUT SCH ×2 (09:43→21:42)
[2017-05-22] MEDS: CARVEDILOL 6.25 MG TABLET NG SCH ×2 (09:43→21:50)
[2017-05-22] MEDS: LISINOPRIL 10 MG TABLET NG SCH ×2 (09:43→21:42)
[2017-05-22] MEDS: AMIODARONE HCL 200 MG TABLET NG SCH ×2 (09:43→18:50)
[2017-05-22] MEDS: FUROSEMIDE INJ/PF 20 MG/2 ML SDV IV SCH (09:44)
[2017-05-22] MEDS: COLLAGENASE CLOSTRIDIUM HIST. OINT 30 GM TOP SCH ×2 (09:46→18:51)
[2017-05-22 14:51] LABS: APPEARANCE,URINE CLEAR; BILIRUBIN,URINE NEGATIVE (NEGATIVE); GLUCOSE, URINE NEGATIVE (NEGATIVE); KETONES,URINE NEGATIVE (NEGATIVE); LEUKOCYTE ESTERASE,URINE NEGATIVE (NEGATIVE); NITRITE,URINE NEGATIVE (NEGATIVE); PROTEIN,URINE NEGATIVE (NEGATIVE); UROBILINOGEN,URINE NEGATIVE mg/dL (<2.0)
--- NOTE | 2017-05-22 14:56 | PDOC PROGRESS REPORT ---
Subjective Progress Note for:: 05/22/17 Subjective:: doing well at this time Physical Exam Vital Signs: Temp Pulse Resp BP Pulse Ox 99.3 F 90 20 147/102 H 99 05/22/17 07:28 05/22/17 13:30 05/22/17 13:30 05/22/17 07:28 05/22/17 07:28 Intake & Output 05/21/17 05/22/17 05/23/17 06:59 06:59 06:59 Intake Total 1901 1335 Output Total 2610 2625 Balance -709 -1350 Weight 70 kg 72.7 kg General appearance: PRESENT: no acute distress, cooperative, disheveled, well- developed Head exam: PRESENT: atraumatic, normocephalic Eye exam: PRESENT: conjunctiva pale, EOMI Mouth exam: PRESENT: dry mucosa, neck supple, tongue midline Neck exam: ABSENT: carotid bruit, JVD, lymphadenopathy, thyromegaly Respiratory exam: PRESENT: decreased breath sounds, prolonged expiratory phas, rhonchi, symmetrical, unlabored Cardiovascular exam: PRESENT: irregular rhythm Pulses: PRESENT: normal radial pulses GI/Abdominal exam: PRESENT: normal bowel sounds, soft. ABSENT: distended, guarding, mass, organolmegaly, rebound, tenderness Rectal exam: PRESENT: deferred Gentrourinary exam: PRESENT: indwelling catheter Musculoskeletal exam: PRESENT: normal inspection Neurological exam: PRESENT: awake Skin exam: PRESENT: warm Results Laboratory Results: 05/22/17 04:12 05/22/17 04:12 05/22/17 05/22/17 05/22/17 04:12 04:12 14:17 WBC 12.6 H RBC 4.53 Hgb 12.3 L D Hct 38.3 MCV 85 MCH 27.2 MCHC 32.1 RDW 17.7 H Plt Count 244 Sodium 142.4 Potassium 4.1 Chloride 107 Carbon Dioxide 28 Anion Gap 7 BUN 22 H Creatinine 0.92 Est GFR ( Amer) > 60 Est GFR (Non-Af Amer) > 60 Glucose 116 H Calcium 8.4 Urine Color YELLOW Urine Appearance CLEAR Urine pH 6.0 Ur Specific [place] 1.010 Urine Protein NEGATIVE Urine Glucose (UA) NEGATIVE Urine Ketones NEGATIVE Urine Blood NEGATIVE Urine Nitrite NEGATIVE Ur Leukocyte Esterase NEGATIVE Urine WBC (Auto) 1 Urine RBC (Auto) 2 05/05/17 05/05/17 05/05/17 17:15 17:15 23:30 Creatine Kinase 123 160 CK-MB (CK-2) 3.17 Troponin I 0.312 NT-Pro-B Natriuret Pep 05/05/17 05/06/17 05/06/17 23:30 04:35 04:35 Creatine Kinase 207 H CK-MB (CK-2) 4.65 H 4.97 H Troponin I 0.432 0.375 NT-Pro-B Natriuret Pep 05/08/17 05/08/17 05/09/17 12:00 12:00 06:15 Creatine Kinase 186 H 197 H CK-MB (CK-2) 0.65 Troponin I 0.060 NT-Pro-B Natriuret Pep 05/09/17 05/13/17 05/13/17 06:15 10:50 10:50 Creatine Kinase 129 CK-MB (CK-2) 0.75 0.67 Troponin I 0.056 0.039 NT-Pro-B Natriuret Pep 02278 H 05/13/17 05/13/17 17:45 17:45 Creatine Kinase 95 CK-MB (CK-2) 1.34 Troponin I 0.083 NT-Pro-B Natriuret Pep Impressions: Head CT 05/05/17 12:43 IMPRESSION: MILD CHRONIC CHANGES OF ATROPHY AND MICROVASCULAR ISCHEMIA. NO ACUTE PROCESS. KUB X-Ray 05/05/17 13:59 IMPRESSION: NG tube appears to be in satisfactory position. Mild small-bowel distention as described. 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 There is no plain film evidence for bony involvement by osteomyelitis. Other findings as noted above Chest/Abdomen CTA 05/13/17 00:00 IMPRESSION: No CT angio evidence of acute pulmonary emboli or thoracic aortic dissection. Bilateral complete collapse of the lower lobes with small to moderate bilateral pleural effusions. Chest X-Ray 05/18/17 08:08 IMPRESSION: Stable trace bilateral pleural effusions. No dense lobar consolidation worrisome for pneumonia. Tubes and lines in good positioning Assessment & Plan - Diagnosis (1) Lactic acidosis Is this a current diagnosis for this admission?: No (2) Septic shock Is this a current diagnosis for this admission?: No (3) Unresponsive episode Is this a current diagnosis for this admission?: No (4) Leg abrasion, infected Qualifiers: Laterality: left Is this a current diagnosis for this admission?: Yes Plan: improved
[2017-05-22] MEDS ORDERED: CARVEDILOL 6.25 MG TABLET PO SCH (17:20)
[2017-05-22] MEDS: DEXTROSE 5%-NORMAL SALINE 1,000 ML IV PRN (18:50)
--- NOTE | 2017-05-22 19:45 | PDOC PROGRESS REPORT ---
Subjective Progress Note for:: 05/22/17 Subjective:: Patient was seen by the bedside, he was admitted because of septic shock, he was extubated on Monday. The nasogastric tube be discontinued, speech consultation will be requested, complained of constipation Physical Exam Vital Signs: Temp Pulse Resp BP Pulse Ox 98.9 F 100 34 H 154/105 H 100 05/22/17 16:24 05/22/17 16:24 05/22/17 16:24 05/22/17 16:24 05/22/17 16:24 Intake & Output 05/21/17 05/22/17 05/23/17 06:59 06:59 06:59 Intake Total 1901 1335 600 Output Total 2610 2685 1275 Balance -709 -1350 -675 Weight 70 kg 72.7 kg General appearance: PRESENT: no acute distress Eye exam: PRESENT: PERRLA Respiratory exam: PRESENT: clear to auscultation srikanth Cardiovascular exam: PRESENT: +S1, +S2 GI/Abdominal exam: PRESENT: soft Results Laboratory Results: 05/22/17 04:12 05/22/17 04:12 05/22/17 05/22/17 05/22/17 04:12 04:12 14:17 WBC 12.6 H RBC 4.53 Hgb 12.3 L D Hct 38.3 MCV 85 MCH 27.2 MCHC 32.1 RDW 17.7 H Plt Count 244 Sodium 142.4 Potassium 4.1 Chloride 107 Carbon Dioxide 28 Anion Gap 7 BUN 22 H Creatinine 0.92 Est GFR ( Amer) > 60 Est GFR (Non-Af Amer) > 60 Glucose 116 H Calcium 8.4 Urine Color YELLOW Urine Appearance CLEAR Urine pH 6.0 Ur Specific [place] 1.010 Urine Protein NEGATIVE Urine Glucose (UA) NEGATIVE Urine Ketones NEGATIVE Urine Blood NEGATIVE Urine Nitrite NEGATIVE Ur Leukocyte Esterase NEGATIVE Urine WBC (Auto) 1 Urine RBC (Auto) 2 05/05/17 05/05/17 05/05/17 17:15 17:15 23:30 Creatine Kinase 123 160 CK-MB (CK-2) 3.17 Troponin I 0.312 NT-Pro-B Natriuret Pep 05/05/17 05/06/17 05/06/17 23:30 04:35 04:35 Creatine Kinase 207 H CK-MB (CK-2) 4.65 H 4.97 H Troponin I 0.432 0.375 NT-Pro-B Natriuret Pep 05/08/17 05/08/17 05/09/17 12:00 12:00 06:15 Creatine Kinase 186 H 197 H CK-MB (CK-2) 0.65 Troponin I 0.060 NT-Pro-B Natriuret Pep 05/09/17 05/13/17 05/13/17 06:15 10:50 10:50 Creatine Kinase 129 CK-MB (CK-2) 0.75 0.67 Troponin I 0.056 0.039 NT-Pro-B Natriuret Pep 06961 H 05/13/17 05/13/17 17:45 17:45 Creatine Kinase 95 CK-MB (CK-2) 1.34 Troponin I 0.083 NT-Pro-B Natriuret Pep Impressions: Head CT 05/05/17 12:43 IMPRESSION: MILD CHRONIC CHANGES OF ATROPHY AND MICROVASCULAR ISCHEMIA. NO ACUTE PROCESS. KUB X-Ray 05/05/17 13:59 IMPRESSION: NG tube appears to be in satisfactory position. Mild small-bowel distention as described. 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 There is no plain film evidence for bony involvement by osteomyelitis. Other findings as noted above Chest/Abdomen CTA 05/13/17 00:00 IMPRESSION: No CT angio evidence of acute pulmonary emboli or thoracic aortic dissection. Bilateral complete collapse of the lower lobes with small to moderate bilateral pleural effusions. Chest X-Ray 05/18/17 08:08 IMPRESSION: Stable trace bilateral pleural effusions. No dense lobar consolidation worrisome for pneumonia. Tubes and lines in good positioning Assessment & Plan - Diagnosis (1) Septic shock Is this a current diagnosis for this admission?: No (2) Metabolic acidosis with increased anion gap and accumulation of organic acids Is this a current diagnosis for this admission?: Yes (3) Elevated troponin Is this a current diagnosis for this admission?: Yes (4) Pseudomonal sepsis Is this a current diagnosis for this admission?: Yes (5) Anemia Qualifiers: Anemia type: unspecified type Qualified Code(s): D64.9 - Anemia, unspecified Is this a current diagnosis for this admission?: Yes (6) Acute respiratory failure Qualifiers: Respiratory failure complication: unspecified whether with hypoxia or hypercapnia Qualified Code(s): J96.00 - Acute respiratory failure, unspecified whether with hypoxia or hypercapnia Is this a current diagnosis for this admission?: Yes (7) Atrial fibrillation with RVR Is this a current diagnosis for this admission?: Yes Plan: Continue amiodarone, increase carvedilol to 25 mg 1 tablet 2 times a day , discontinued nasogastric tube because of risk of aspiration , speech evaluation in the morning ,molases enema for constipation
--- NOTE | 2017-05-22 23:37 | PROGRESS NOTE E ---
Progress Note NAME: MOHAN BALLESTEROS : 1940 AGE: 76Y DATE: 05/22/2017 ROOM: 528 SUBJECTIVE: Note that the patient is very confused and agitated and is in soft restraints. Otherwise, apart from the agitation he does not seem to be in any acute distress. He is still being fed by the NG tube and he is now placed on oxygen since the sats dropped. There is no recurrence of ventricular tachycardia or atrial fibrillation. There is no TIA or CVA symptoms. In spite of his agitation, the patient is awake and alert but definitely confused and is nonverbal. OBJECTIVE: VITAL SIGNS: On examination, he is afebrile with a temperature of 99.3 degrees Fahrenheit, pulse is 92 beats per minute, blood pressure is 147/102 and most likely increased due to agitation, respirations are 18 and O2 saturations are 99% on 4L nasal cannula. HEAD: Atraumatic, normocephalic. EYES: Pupils are equal, round, regular, reactive to light and accommodation. Extraocular movements are normal. There is no conjunctivae pallor. There is no scleral icterus. ENT: Negative. NECK: Supple. There is no JVD. Carotids are equal. There is no bruit. There is no lymphadenopathy. Trachea is central. There is no goiter. LUNGS: Fairly clear. There is diminished inspiration and prolonged expiration on auscultation. There are a few scattered rhonchi. There are no rales, pneumonia or CHF. HEART: S1 and S2 are heard. There is no S3 gallop. There is no S4 gallop. S1 is of normal intensity. There is a systolic murmur in the left sternal border of the apex. There is no rub. ABDOMEN: Soft, nontender. There is no hepatosplenomegaly. Bowel sounds are well heard. There are no tender areas or masses. EXTREMITIES: Femorals are diminished. There are no femoral bruits. Leg pulses are diminished. There is no pedal edema. There is no cyanosis or clubbing. Capillary refill is normal. There are no tender areas or masses. There is no calf tenderness. CENTRAL NERVOUS SYSTEM: The patient is conscious, awake, but disoriented and agitated. He moves all 4 extremities in spite of being in restraints, hence no focal deficit. PSYCHIATRIC: The patient appears agitated. No other exam could be made. His 24 hour intact is 1335 and output is 2685. LABORATORY DATA: White count of 12,600, hemoglobin is 12.3, hematocrit is 38.3, platelet count is 244,000. The patient's sodium is 142.4, potassium 4.1, chloride is 107, CO2 is 28, BUN is 22, creatinine is 0.92. GFR is greater than 60. Glucose is 116. Calcium is 8.4. IMPRESSION: 1. ALTERED MENTAL STATUS, QUESTIONABLE ETIOLOGY. 2. AGITATION. 3. HISTORY OF VENTRICULAR TACHYCARDIA WITH NO RECURRENCE. 4. HISTORY OF PAROXYSMAL ATRIAL FIBRILLATION. THE PATIENT NOW IN SINUS RHYTHM. 5. HISTORY OF ACUTE RESPIRATORY FAILURE. THE PATIENT IS NOW EXTUBATED. 6. PULMONARY EDEMA, SEEMS TO HAVE RESOLVED. 7. PNEUMONIA, SEEMS TO HAVE RESOLVED. 8. HYPOTENSION, THIS ALSO HAS RESOLVED. THE BLOOD PRESSURE IS STABLE AND HE IS TOLERATING COREG AND LISINOPRIL. 9. PERIPHERAL VASCULAR DISEASE. THE PATIENT IS ASYMPTOMATIC. THERE IS NO EVIDENCE OF LIMB ISCHEMIA. 10. ELEVATED TROPONIN SECONDARY TO HIS PRIOR HYPOTENSION AND SEPSIS, WHICH IS TRENDING DOWN. 11. CARDIOMYOPATHY, SEEMS TO BE COMPENSATED. 12. HYPOKALEMIA, RESOLVED. RECOMMENDATIONS: Continue the patient on amiodarone 200 mg p.o. b.i.d. via NG tube. Continue Coreg and lisinopril. Continue antibiotics. Would recommend rechecking an x-ray in the morning. Note 25 minutes spent on the patient with more than 50% of the time spent on direct patient care. His medications have been reviewed. Case discussed with the attending physician and the nurse involved in the case. Would also recommend a CT of the head to be sure that there is no intracranial pathology causing it. If this continues, would recommend stopping the metoprolol *------* if that is the culprit since it cause it. Note moderately complex medical issues involved in this case. DICTATING PHYSICIAN: ELENA BENSON M.D. [id number] RANCHO#: [id number] ID: [id number] JOB#: [id number] ACCT: [id number] cc: >
[2017-05-23] MEDS: IPRATROPIUM/ALBUTEROL 0.5-2.5 MG/3 ML AMPUL NEB SCH ×4 (01:50→20:04)
[2017-05-23] MEDS: ACETAMINOPHEN SOLN 325 MG/10.15 ML UDCUP NG PRN (03:18)
[2017-05-23] MEDS: LANSOPRAZOLE 30 MG TAB.RAP.DR PO SCH ×2 (05:14→18:09)
[2017-05-23 06:16] LABS: BLOOD UREA NITROGEN 20 mg/dL (7-20); CALCIUM 8.7 mg/dL (8.4-10.2); CARBON DIOXIDE 32 mmol/L (22-30); CHLORIDE 107 mmol/L (98-107); CREATININE RESULT 0.86 mg/dL (0.52-1.25); GLUCOSE 119 mg/dL (75-110); POTASSIUM 3.5 mmol/L (3.6-5.0)
[2017-05-23 06:33] LABS: ANION GAP 5 (5-19); SODIUM 143.7 mmol/L (137-145)
[2017-05-23] MEDS: AMIODARONE HCL 200 MG TABLET NG SCH (09:28)
[2017-05-23] MEDS: ENOXAPARIN SODIUM INJ 30 MG/0.3 ML DISP.SYRIN SUBCUT SCH ×2 (09:28→21:06)
[2017-05-23] MEDS: CARVEDILOL 6.25 MG TABLET NG SCH (09:28)
[2017-05-23] MEDS: LISINOPRIL 10 MG TABLET NG SCH (09:29)
[2017-05-23] MEDS: COLLAGENASE CLOSTRIDIUM HIST. OINT 30 GM TOP SCH ×2 (09:37→18:03)
[2017-05-23] MEDS: DEXTROSE 5%-NORMAL SALINE 1,000 ML IV PRN (18:01)
[2017-05-23] MEDS ORDERED: POTASSIUM CHLORIDE 10 MEQ TABLET.SA PO ONE (19:00)
[2017-05-23] MEDS ORDERED: BISACODYL 5 MG TABEC PO ONE (20:00)
[2017-05-23] MEDS ORDERED: POTASSIUM CHLORIDE 20 MEQ/15 ML UDCUP PO ONE (20:00)
--- NOTE | 2017-05-23 20:51 | PDOC PROGRESS REPORT ---
Subjective Progress Note for:: 05/23/17 Subjective:: Patient was seen by the bedside he complained of constipation, it continues to require noninvasive positive pressure ventilation with BiPAP machine. He was seen by speech and he did well on the evaluation, it is recommended for him to eat orally. Physical Exam Vital Signs: Temp Pulse Resp BP Pulse Ox 98.7 F 63 26 H 122/79 100 05/23/17 11:44 05/23/17 13:59 05/23/17 16:15 05/23/17 11:44 05/23/17 16:15 Intake & Output 05/22/17 05/23/17 05/24/17 06:59 06:59 06:59 Intake Total 1335 600 600 Output Total 2685 1700 500 Balance -1350 -1100 100 Weight 72.7 kg 70 kg General appearance: PRESENT: no acute distress Eye exam: PRESENT: PERRLA Respiratory exam: PRESENT: clear to auscultation srikanth Cardiovascular exam: PRESENT: +S1, +S2 GI/Abdominal exam: PRESENT: soft Neurological exam: PRESENT: alert Results Laboratory Results: 05/22/17 04:12 05/23/17 05:35 05/23/17 05/23/17 05:35 20:05 Sodium 143.7 Potassium 3.5 L Chloride 107 Carbon Dioxide 32 H Anion Gap 5 BUN 20 Creatinine 0.86 Est GFR ( Amer) > 60 Est GFR (Non-Af Amer) > 60 Glucose 119 H Calcium 8.7 Stool Occult Blood NEGATIVE 05/05/17 05/05/17 05/05/17 17:15 17:15 23:30 Creatine Kinase 123 160 CK-MB (CK-2) 3.17 Troponin I 0.312 NT-Pro-B Natriuret Pep 05/05/17 05/06/17 05/06/17 23:30 04:35 04:35 Creatine Kinase 207 H CK-MB (CK-2) 4.65 H 4.97 H Troponin I 0.432 0.375 NT-Pro-B Natriuret Pep 05/08/17 05/08/17 05/09/17 12:00 12:00 06:15 Creatine Kinase 186 H 197 H CK-MB (CK-2) 0.65 Troponin I 0.060 NT-Pro-B Natriuret Pep 05/09/17 05/13/17 05/13/17 06:15 10:50 10:50 Creatine Kinase 129 CK-MB (CK-2) 0.75 0.67 Troponin I 0.056 0.039 NT-Pro-B Natriuret Pep 32279 H 05/13/17 05/13/17 17:45 17:45 Creatine Kinase 95 CK-MB (CK-2) 1.34 Troponin I 0.083 NT-Pro-B Natriuret Pep Impressions: Head CT 05/05/17 12:43 IMPRESSION: MILD CHRONIC CHANGES OF ATROPHY AND MICROVASCULAR ISCHEMIA. NO ACUTE PROCESS. KUB X-Ray 05/05/17 13:59 IMPRESSION: NG tube appears to be in satisfactory position. Mild small-bowel distention as described. 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 There is no plain film evidence for bony involvement by osteomyelitis. Other findings as noted above Chest/Abdomen CTA 05/13/17 00:00 IMPRESSION: No CT angio evidence of acute pulmonary emboli or thoracic aortic dissection. Bilateral complete collapse of the lower lobes with small to moderate bilateral pleural effusions. Chest X-Ray 05/18/17 08:08 IMPRESSION: Stable trace bilateral pleural effusions. No dense lobar consolidation worrisome for pneumonia. Tubes and lines in good positioning Assessment & Plan - Diagnosis (1) Septic shock Is this a current diagnosis for this admission?: No (2) Metabolic acidosis with increased anion gap and accumulation of organic acids Is this a current diagnosis for this admission?: Yes (3) Elevated troponin Is this a current diagnosis for this admission?: Yes (4) Pseudomonal sepsis Is this a current diagnosis for this admission?: Yes (5) Anemia Qualifiers: Anemia type: unspecified type Qualified Code(s): D64.9 - Anemia, unspecified Is this a current diagnosis for this admission?: Yes (6) Acute respiratory failure Qualifiers: Respiratory failure complication: unspecified whether with hypoxia or hypercapnia Qualified Code(s): J96.00 - Acute respiratory failure, unspecified whether with hypoxia or hypercapnia Is this a current diagnosis for this admission?: Yes (7) Atrial fibrillation with RVR Is this a current diagnosis for this admission?: Yes (8) Constipation Qualifiers: Constipation type: unspecified constipation type Qualified Code(s): K59.00 - Constipation, unspecified Is this a current diagnosis for this admission?: Yes Plan: He will be treated with Dulcolax
[2017-05-23] MEDS: ACETAMINOPHEN SOLN 325 MG/10.15 ML UDCUP PO PRN (21:03)
[2017-05-23] MEDS: CARVEDILOL 12.5 MG TABLET PO SCH (21:03)
[2017-05-23] MEDS: LISINOPRIL 10 MG TABLET PO SCH (21:04)
[2017-05-23] MEDS: AMIODARONE HCL 200 MG TABLET PO SCH (21:04)
[2017-05-23] MEDS ORDERED: CARVEDILOL 6.25 MG TABLET PO SCH (22:00)
[2017-05-24] MEDS: IPRATROPIUM/ALBUTEROL 0.5-2.5 MG/3 ML AMPUL NEB SCH ×4 (02:57→19:57)
[2017-05-24] MEDS: LANSOPRAZOLE 30 MG TAB.RAP.DR PO SCH ×2 (05:07→18:34)
[2017-05-24 05:44] LABS: HEMATOCRIT 30.7 % (37.9-51.0); HGB HCT DIFFERENCE -0.7; MEAN CORPUSCULAR HEMOGLOBIN 28.2 pg (27.0-33.4); MEAN CORPUSCULAR HGB CONC 32.7 g/dL (32.0-36.0); MEAN CORPUSCULAR VOLUME 86 fl (80-97); RED BLOOD COUNT 3.56 10^6/uL (4.35-5.55); RED CELL DISTRIBUTION WIDTH 17.8 % (11.5-14.0); WHITE BLOOD COUNT 8.5 10^3/uL (4.0-10.5)
[2017-05-24 05:56] LABS: ANION GAP 5 (5-19); BLOOD UREA NITROGEN 17 mg/dL (7-20); CALCIUM 8.8 mg/dL (8.4-10.2); CARBON DIOXIDE 31 mmol/L (22-30); CHLORIDE 109 mmol/L (98-107); GLUCOSE 102 mg/dL (75-110); POTASSIUM 3.6 mmol/L (3.6-5.0); SODIUM 144.7 mmol/L (137-145)
[2017-05-24] MEDS: CARVEDILOL 12.5 MG TABLET PO SCH ×2 (09:32→21:33)
[2017-05-24] MEDS: ENOXAPARIN SODIUM INJ 30 MG/0.3 ML DISP.SYRIN SUBCUT SCH ×2 (09:33→21:33)
[2017-05-24] MEDS: LISINOPRIL 10 MG TABLET PO SCH ×2 (09:33→21:33)
[2017-05-24] MEDS: AMIODARONE HCL 200 MG TABLET PO SCH ×2 (09:33→21:33)
[2017-05-24] MEDS: BISACODYL 5 MG TABEC PO SCH (09:40)
[2017-05-24] MEDS: COLLAGENASE CLOSTRIDIUM HIST. OINT 30 GM TOP SCH ×2 (09:40→18:31)
--- NOTE | 2017-05-24 10:05 | PDOC PROGRESS REPORT ---
Subjective Progress Note for:: 05/23/17 Subjective:: Awake otherwise unchanged Physical Exam Vital Signs: Temp Pulse Resp BP Pulse Ox 98.7 F 63 20 122/79 100 05/23/17 11:44 05/23/17 13:59 05/23/17 13:59 05/23/17 11:44 05/23/17 13:59 Intake & Output 05/22/17 05/23/17 05/24/17 06:59 06:59 06:59 Intake Total 1335 600 Output Total 2685 1700 Balance -1350 -1100 Weight 72.7 kg 70 kg General appearance: PRESENT: no acute distress, disheveled Head exam: PRESENT: atraumatic, normocephalic Eye exam: PRESENT: conjunctiva pale, EOMI Mouth exam: PRESENT: dry mucosa, neck supple Neck exam: ABSENT: carotid bruit, JVD, lymphadenopathy, thyromegaly Respiratory exam: PRESENT: decreased breath sounds, prolonged expiratory phas, rhonchi, symmetrical, unlabored. ABSENT: accessory muscle use, chest wall tenderness, clear to auscultation srikanth, retraction, stridor, tachypnea, wheezes Cardiovascular exam: PRESENT: irregular rhythm Pulses: PRESENT: normal radial pulses GI/Abdominal exam: PRESENT: normal bowel sounds, soft. ABSENT: distended, guarding, mass, organolmegaly, rebound, tenderness Rectal exam: PRESENT: deferred Gentrourinary exam: PRESENT: indwelling catheter Musculoskeletal exam: PRESENT: normal inspection Neurological exam: PRESENT: awake Skin exam: PRESENT: dry, warm Results Laboratory Results: 05/22/17 04:12 05/23/17 05:35 05/23/17 05:35 Sodium 143.7 Potassium 3.5 L Chloride 107 Carbon Dioxide 32 H Anion Gap 5 BUN 20 Creatinine 0.86 Est GFR ( Amer) > 60 Est GFR (Non-Af Amer) > 60 Glucose 119 H Calcium 8.7 05/05/17 05/05/17 05/05/17 17:15 17:15 23:30 Creatine Kinase 123 160 CK-MB (CK-2) 3.17 Troponin I 0.312 NT-Pro-B Natriuret Pep 05/05/17 05/06/17 05/06/17 23:30 04:35 04:35 Creatine Kinase 207 H CK-MB (CK-2) 4.65 H 4.97 H Troponin I 0.432 0.375 NT-Pro-B Natriuret Pep 05/08/17 05/08/17 05/09/17 12:00 12:00 06:15 Creatine Kinase 186 H 197 H CK-MB (CK-2) 0.65 Troponin I 0.060 NT-Pro-B Natriuret Pep 05/09/17 05/13/17 05/13/17 06:15 10:50 10:50 Creatine Kinase 129 CK-MB (CK-2) 0.75 0.67 Troponin I 0.056 0.039 NT-Pro-B Natriuret Pep 59836 H 05/13/17 05/13/17 17:45 17:45 Creatine Kinase 95 CK-MB (CK-2) 1.34 Troponin I 0.083 NT-Pro-B Natriuret Pep Impressions: Head CT 05/05/17 12:43 IMPRESSION: MILD CHRONIC CHANGES OF ATROPHY AND MICROVASCULAR ISCHEMIA. NO ACUTE PROCESS. KUB X-Ray 05/05/17 13:59 IMPRESSION: NG tube appears to be in satisfactory position. Mild small-bowel distention as described. 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 There is no plain film evidence for bony involvement by osteomyelitis. Other findings as noted above Chest/Abdomen CTA 05/13/17 00:00 IMPRESSION: No CT angio evidence of acute pulmonary emboli or thoracic aortic dissection. Bilateral complete collapse of the lower lobes with small to moderate bilateral pleural effusions. Chest X-Ray 05/18/17 08:08 IMPRESSION: Stable trace bilateral pleural effusions. No dense lobar consolidation worrisome for pneumonia. Tubes and lines in good positioning Assessment & Plan - Diagnosis (1) Lactic acidosis Is this a current diagnosis for this admission?: No (2) Septic shock Is this a current diagnosis for this admission?: No (3) Unresponsive episode Is this a current diagnosis for this admission?: No (4) Leg abrasion, infected Qualifiers: Laterality: left Is this a current diagnosis for this admission?: Yes - Plan Summary Plan Summary: patient stable will sign off for now please do not hesitate to call if I can be of addtional assistance.Thank you for allowing me to see and help participate in his care
[2017-05-24 16:53] LABS: APPEARANCE,URINE SLIGHTLY-CLOUDY; BILIRUBIN,URINE NEGATIVE (NEGATIVE); GLUCOSE, URINE NEGATIVE (NEGATIVE); KETONES,URINE NEGATIVE (NEGATIVE); LEUKOCYTE ESTERASE,URINE NEGATIVE (NEGATIVE); NITRITE,URINE NEGATIVE (NEGATIVE); PROTEIN,URINE 30 mg/dL (NEGATIVE); UROBILINOGEN,URINE NEGATIVE mg/dL (<2.0)
--- NOTE | 2017-05-24 17:19 | PDOC PROGRESS REPORT ---
Subjective Progress Note for:: 05/24/17 Subjective:: Patient is alert, he may need to be discharged to senior care for rehabilitation, discharge plan is to be consulted to make arrangements for transfer to senior care for rehabilitation. Physical Exam Vital Signs: Temp Pulse Resp BP Pulse Ox 98.8 F 76 23 H 127/78 H 96 05/23/17 23:34 05/24/17 13:04 05/24/17 16:05 05/23/17 23:34 05/24/17 16:05 Intake & Output 05/23/17 05/24/17 05/25/17 06:59 06:59 06:59 Intake Total 600 600 Output Total 1700 850 Balance -1100 -250 Weight 70 kg 70.6 kg General appearance: PRESENT: no acute distress Eye exam: PRESENT: PERRLA Respiratory exam: PRESENT: clear to auscultation srikanth Cardiovascular exam: PRESENT: +S1, +S2 GI/Abdominal exam: PRESENT: soft Results Laboratory Results: 05/24/17 05:25 05/24/17 05:25 05/23/17 05/24/17 05/24/17 20:05 05:25 05:25 WBC 8.5 RBC 3.56 L Hgb 10.0 L D Hct 30.7 L MCV 86 MCH 28.2 MCHC 32.7 RDW 17.8 H Plt Count 178 Sodium 144.7 Potassium 3.6 Chloride 109 H Carbon Dioxide 31 H Anion Gap 5 BUN 17 Creatinine 0.80 Est GFR ( Amer) > 60 Est GFR (Non-Af Amer) > 60 Glucose 102 Calcium 8.8 Urine Color Urine Appearance Urine pH Ur Specific [place] Urine Protein Urine Glucose (UA) Urine Ketones Urine Blood Urine Nitrite Ur Leukocyte Esterase Urine WBC (Auto) Urine RBC (Auto) Stool Occult Blood NEGATIVE 05/24/17 16:36 WBC RBC Hgb Hct MCV MCH MCHC RDW Plt Count Sodium Potassium Chloride Carbon Dioxide Anion Gap BUN Creatinine Est GFR ( Amer) Est GFR (Non-Af Amer) Glucose Calcium Urine Color YELLOW Urine Appearance SLIGHTLY-CLOUDY Urine pH 5.0 Ur Specific [place] 1.030 Urine Protein 30 H Urine Glucose (UA) NEGATIVE Urine Ketones NEGATIVE Urine Blood NEGATIVE Urine Nitrite NEGATIVE Ur Leukocyte Esterase NEGATIVE Urine WBC (Auto) 3 Urine RBC (Auto) 5 Stool Occult Blood 05/05/17 05/05/17 05/05/17 17:15 17:15 23:30 Creatine Kinase 123 160 CK-MB (CK-2) 3.17 Troponin I 0.312 NT-Pro-B Natriuret Pep 05/05/17 05/06/17 05/06/17 23:30 04:35 04:35 Creatine Kinase 207 H CK-MB (CK-2) 4.65 H 4.97 H Troponin I 0.432 0.375 NT-Pro-B Natriuret Pep 05/08/17 05/08/17 05/09/17 12:00 12:00 06:15 Creatine Kinase 186 H 197 H CK-MB (CK-2) 0.65 Troponin I 0.060 NT-Pro-B Natriuret Pep 05/09/17 05/13/17 05/13/17 06:15 10:50 10:50 Creatine Kinase 129 CK-MB (CK-2) 0.75 0.67 Troponin I 0.056 0.039 NT-Pro-B Natriuret Pep 10069 H 05/13/17 05/13/17 17:45 17:45 Creatine Kinase 95 CK-MB (CK-2) 1.34 Troponin I 0.083 NT-Pro-B Natriuret Pep Impressions: Head CT 05/05/17 12:43 IMPRESSION: MILD CHRONIC CHANGES OF ATROPHY AND MICROVASCULAR ISCHEMIA. NO ACUTE PROCESS. KUB X-Ray 05/05/17 13:59 IMPRESSION: NG tube appears to be in satisfactory position. Mild small-bowel distention as described. 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 There is no plain film evidence for bony involvement by osteomyelitis. Other findings as noted above Chest/Abdomen CTA 05/13/17 00:00 IMPRESSION: No CT angio evidence of acute pulmonary emboli or thoracic aortic dissection. Bilateral complete collapse of the lower lobes with small to moderate bilateral pleural effusions. Chest X-Ray 05/18/17 08:08 IMPRESSION: Stable trace bilateral pleural effusions. No dense lobar consolidation worrisome for pneumonia. Tubes and lines in good positioning Assessment & Plan - Diagnosis (1) Septic shock Is this a current diagnosis for this admission?: No (2) Metabolic acidosis with increased anion gap and accumulation of organic acids Is this a current diagnosis for this admission?: Yes (3) Elevated troponin Is this a current diagnosis for this admission?: Yes (4) Pseudomonal sepsis Is this a current diagnosis for this admission?: Yes (5) Anemia Qualifiers: Anemia type: unspecified type Qualified Code(s): D64.9 - Anemia, unspecified Is this a current diagnosis for this admission?: Yes (6) Acute respiratory failure Qualifiers: Respiratory failure complication: unspecified whether with hypoxia or hypercapnia Qualified Code(s): J96.00 - Acute respiratory failure, unspecified whether with hypoxia or hypercapnia Is this a current diagnosis for this admission?: Yes (7) Atrial fibrillation with RVR Is this a current diagnosis for this admission?: Yes (8) Constipation Qualifiers: Constipation type: unspecified constipation type Qualified Code(s): K59.00 - Constipation, unspecified Is this a current diagnosis for this admission?: Yes
--- NOTE | 2017-05-24 19:03 | RADIOLOGY REPORT (SQ) ---
EXAM DESCRIPTION: CHEST PA/LAT COMPLETED DATE/TIME: 05/24/2017 6:54 pm REASON FOR STUDY: pneumonia COMPARISON: 02/02/2017 EXAM PARAMETERS: NUMBER OF VIEWS: two views TECHNIQUE: Digital Frontal and Lateral radiographic views of the chest acquired. RADIATION DOSE: NA LIMITATIONS: none FINDINGS: LUNGS AND PLEURA: There is considerable opacification posteriorly on the lateral view. Pu lmonary edema is present. There is a loculated right pleural effusion. MEDIASTINUM AND HILAR STRUCTURES: No masses or contour abnormalities. HEART AND VASCULAR STRUCTURES: Heart size is borderline. BONES: No acute findings. HARDWARE: Pacemaker/ defibrillator. Right-sided catheter with the tip in the superior vena cava. OTHER: No other significant finding. IMPRESSION: Likely left lower lobe pneumonia with pulmonary edema right pleural effusion. TECHNICAL DOCUMENTATION: JOB ID: [id number] [employer]- All Rights Reserved
[2017-05-24] MEDS: ACETAMINOPHEN SOLN 325 MG/10.15 ML UDCUP PO PRN (21:32)
[2017-05-25] MEDS: IPRATROPIUM/ALBUTEROL 0.5-2.5 MG/3 ML AMPUL NEB SCH ×4 (02:02→19:45)
[2017-05-25] MEDS: LANSOPRAZOLE 30 MG TAB.RAP.DR PO SCH ×2 (05:08→16:53)
[2017-05-25 06:13] LABS: ANION GAP 9 (5-19); BLOOD UREA NITROGEN 15 mg/dL (7-20); CALCIUM 8.9 mg/dL (8.4-10.2); CARBON DIOXIDE 29 mmol/L (22-30); CHLORIDE 105 mmol/L (98-107); CREATININE RESULT 0.73 mg/dL (0.52-1.25); GLUCOSE 97 mg/dL (75-110); POTASSIUM 3.8 mmol/L (3.6-5.0); SODIUM 142.6 mmol/L (137-145)
[2017-05-25] MEDS: AMIODARONE HCL 200 MG TABLET PO SCH ×2 (11:00→20:41)
[2017-05-25] MEDS: ENOXAPARIN SODIUM INJ 30 MG/0.3 ML DISP.SYRIN SUBCUT SCH ×2 (11:00→20:41)
[2017-05-25] MEDS: BISACODYL 5 MG TABEC PO SCH (11:01)
[2017-05-25] MEDS: CARVEDILOL 12.5 MG TABLET PO SCH ×2 (11:01→20:42)
[2017-05-25] MEDS: LISINOPRIL 10 MG TABLET PO SCH ×2 (11:01→20:42)
[2017-05-25] MEDS: COLLAGENASE CLOSTRIDIUM HIST. OINT 30 GM TOP SCH ×2 (11:01→20:43)
[2017-05-25] MEDS: ACETAMINOPHEN SOLN 325 MG/10.15 ML UDCUP PO PRN (15:44)
[2017-05-25] MEDS: TAMSULOSIN HCL 0.4 MG CAP.SR.24H PO SCH (18:37)
--- NOTE | 2017-05-25 20:23 | PDOC PROGRESS REPORT ---
Subjective Progress Note for:: 05/25/17 Subjective:: Patient is somewhat confused he was pulling on IV lines subsequently requiring restraints. Physical Exam Vital Signs: Temp Pulse Resp BP Pulse Ox 100.2 F 78 32 H 162/98 H 100 05/25/17 15:15 05/25/17 19:45 05/25/17 19:45 05/25/17 15:15 05/25/17 15:15 Intake & Output 05/24/17 05/25/17 05/26/17 06:59 06:59 06:59 Intake Total 600 1358 440 Output Total 850 600 200 Balance -250 758 240 Weight 70.6 kg 73.6 kg General appearance: PRESENT: no acute distress Eye exam: PRESENT: PERRLA Respiratory exam: PRESENT: clear to auscultation srikanth Cardiovascular exam: PRESENT: +S1, +S2 GI/Abdominal exam: PRESENT: soft Neurological exam: PRESENT: alert Results Laboratory Results: 05/24/17 05:25 05/25/17 05:25 05/25/17 05:25 Sodium 142.6 Potassium 3.8 Chloride 105 Carbon Dioxide 29 Anion Gap 9 BUN 15 Creatinine 0.73 Est GFR ( Amer) > 60 Est GFR (Non-Af Amer) > 60 Glucose 97 Calcium 8.9 05/05/17 05/05/17 05/05/17 17:15 17:15 23:30 Creatine Kinase 123 160 CK-MB (CK-2) 3.17 Troponin I 0.312 NT-Pro-B Natriuret Pep 05/05/17 05/06/17 05/06/17 23:30 04:35 04:35 Creatine Kinase 207 H CK-MB (CK-2) 4.65 H 4.97 H Troponin I 0.432 0.375 NT-Pro-B Natriuret Pep 05/08/17 05/08/17 05/09/17 12:00 12:00 06:15 Creatine Kinase 186 H 197 H CK-MB (CK-2) 0.65 Troponin I 0.060 NT-Pro-B Natriuret Pep 05/09/17 05/13/17 05/13/17 06:15 10:50 10:50 Creatine Kinase 129 CK-MB (CK-2) 0.75 0.67 Troponin I 0.056 0.039 NT-Pro-B Natriuret Pep 70159 H 05/13/17 05/13/17 17:45 17:45 Creatine Kinase 95 CK-MB (CK-2) 1.34 Troponin I 0.083 NT-Pro-B Natriuret Pep Impressions: Head CT 05/05/17 12:43 IMPRESSION: MILD CHRONIC CHANGES OF ATROPHY AND MICROVASCULAR ISCHEMIA. NO ACUTE PROCESS. KUB X-Ray 05/05/17 13:59 IMPRESSION: NG tube appears to be in satisfactory position. Mild small-bowel distention as described. 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 There is no plain film evidence for bony involvement by osteomyelitis. Other findings as noted above Chest/Abdomen CTA 05/13/17 00:00 IMPRESSION: No CT angio evidence of acute pulmonary emboli or thoracic aortic dissection. Bilateral complete collapse of the lower lobes with small to moderate bilateral pleural effusions. Chest X-Ray 05/24/17 00:00 IMPRESSION: Likely left lower lobe pneumonia with pulmonary edema right pleural effusion. Assessment & Plan - Diagnosis (1) Septic shock Is this a current diagnosis for this admission?: No (2) Metabolic acidosis with increased anion gap and accumulation of organic acids Is this a current diagnosis for this admission?: Yes (3) Elevated troponin Is this a current diagnosis for this admission?: Yes (4) Pseudomonal sepsis Is this a current diagnosis for this admission?: Yes (5) Anemia Qualifiers: Anemia type: unspecified type Qualified Code(s): D64.9 - Anemia, unspecified Is this a current diagnosis for this admission?: Yes (6) Acute respiratory failure Qualifiers: Respiratory failure complication: unspecified whether with hypoxia or hypercapnia Qualified Code(s): J96.00 - Acute respiratory failure, unspecified whether with hypoxia or hypercapnia Is this a current diagnosis for this admission?: Yes (7) Atrial fibrillation with RVR Is this a current diagnosis for this admission?: Yes (8) Constipation Qualifiers: Constipation type: unspecified constipation type Qualified Code(s): K59.00 - Constipation, unspecified Is this a current diagnosis for this admission?: Yes (9) Delirium Is this a current diagnosis for this admission?: Yes
[2017-05-25] MEDS: ATORVASTATIN CALCIUM 40 MG TABLET PO SCH (20:41)
[2017-05-26] MEDS: IPRATROPIUM/ALBUTEROL 0.5-2.5 MG/3 ML AMPUL NEB SCH ×4 (02:05→19:59)
[2017-05-26] MEDS: LANSOPRAZOLE 30 MG TAB.RAP.DR PO SCH ×2 (05:13→17:01)
[2017-05-26 05:37] LABS: HEMATOCRIT 31.5 % (37.9-51.0); HEMOGLOBIN 10.4 g/dL (13.5-17.0); HGB HCT DIFFERENCE -0.3; MEAN CORPUSCULAR HEMOGLOBIN 28.2 pg (27.0-33.4); MEAN CORPUSCULAR HGB CONC 33.1 g/dL (32.0-36.0); MEAN CORPUSCULAR VOLUME 85 fl (80-97); RED BLOOD COUNT 3.69 10^6/uL (4.35-5.55); RED CELL DISTRIBUTION WIDTH 16.9 % (11.5-14.0)
[2017-05-26 05:59] LABS: ANION GAP 8 (5-19); BLOOD UREA NITROGEN 15 mg/dL (7-20); CALCIUM 8.9 mg/dL (8.4-10.2); CARBON DIOXIDE 28 mmol/L (22-30); CHLORIDE 104 mmol/L (98-107); CREATININE RESULT 0.78 mg/dL (0.52-1.25); GLUCOSE 98 mg/dL (75-110); POTASSIUM 3.7 mmol/L (3.6-5.0); SODIUM 139.7 mmol/L (137-145)
[2017-05-26] MEDS: ACETAMINOPHEN SOLN 325 MG/10.15 ML UDCUP PO PRN (08:13)
[2017-05-26] MEDS: ENOXAPARIN SODIUM INJ 30 MG/0.3 ML DISP.SYRIN SUBCUT SCH ×2 (10:12→21:36)
[2017-05-26] MEDS: COLLAGENASE CLOSTRIDIUM HIST. OINT 30 GM TOP SCH ×2 (10:13→21:38)
[2017-05-26] MEDS: BISACODYL 5 MG TABEC PO SCH (10:13)
[2017-05-26] MEDS: LISINOPRIL 10 MG TABLET PO SCH ×2 (10:13→21:37)
[2017-05-26] MEDS: AMIODARONE HCL 200 MG TABLET PO SCH ×2 (10:13→21:37)
[2017-05-26] MEDS: CARVEDILOL 12.5 MG TABLET PO SCH ×2 (10:13→21:37)
[2017-05-26] MEDS: TAMSULOSIN HCL 0.4 MG CAP.SR.24H PO SCH (17:01)
--- NOTE | 2017-05-26 20:02 | PDOC PROGRESS REPORT ---
Subjective Progress Note for:: 05/23/17 Subjective:: Patient showing improvement. Blood pressure has been stable. Patient however remains confused. Medications reviewed. Physical Exam Vital Signs: Temp Pulse Resp BP Pulse Ox 98.7 F 63 26 H 122/79 100 05/23/17 11:44 05/23/17 13:59 05/23/17 16:15 05/23/17 11:44 05/23/17 16:15 Intake & Output 05/22/17 05/23/17 05/24/17 06:59 06:59 06:59 Intake Total 1335 600 600 Output Total 2685 1700 500 Balance -1350 -1100 100 Weight 72.7 kg 70 kg Exam: GENERAL: well-nourished and in no acute distress. Intermittent mild respiratory distress reported by the nurses when off bilevel therapy.. Orientation cannot be checked HEAD: Atraumatic, normocephalic. EYES: Pupils equal round and reactive to light, extraocular movements could not be checked, sclera anicteric, conjunctiva are normal. ENT: TMs normal, nares patent, oropharynx clear without exudates. Moist mucous membranes. No oral ulcerations or bleeding gums noted NECK: supple without lymphadenopathy or JVD. Trachea is central. No cervical or axillary lymphadenopathy noted. Carotids are 2+ LUNGS: Breath sounds mostly clear to auscultation patient is noted to have bibasal crackles at the extreme bases CHEST: Palpation of the chest wall shows no significant chest wall tenderness or abnormalities. HEART: [place] [employer], No PSH, 2/6 CYNDIE aortic area, 1/6 reyna systolic murmur mitral area , no rubs or gallops. ABDOMEN: Soft, no significant tenderness appreciated, normoactive bowel sounds. No guarding, no rebound. No rigidity noted . No masses appreciated. EXTREMITIES: Pedal pulses are 1-2+, no calf tenderness noted, 1+ pedal edema noted. No clubbing or cyanosis. 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 Extremities slightly hypotonic. 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 PSYCH: This cannot be evaluated. Patient cannot participate. SKIN: No significant ecchymosis, rash, or signs of pruritus noted. MUSCULOSKELETAL EXAM: No significant joint swelling noted. Patient cannot participate in musculoskeletal exam Results Laboratory Results: 05/22/17 04:12 05/23/17 05:35 05/23/17 05:35 Sodium 143.7 Potassium 3.5 L Chloride 107 Carbon Dioxide 32 H Anion Gap 5 BUN 20 Creatinine 0.86 Est GFR ( Amer) > 60 Est GFR (Non-Af Amer) > 60 Glucose 119 H Calcium 8.7 05/05/17 05/05/17 05/05/17 17:15 17:15 23:30 Creatine Kinase 123 160 CK-MB (CK-2) 3.17 Troponin I 0.312 NT-Pro-B Natriuret Pep 05/05/17 05/06/17 05/06/17 23:30 04:35 04:35 Creatine Kinase 207 H CK-MB (CK-2) 4.65 H 4.97 H Troponin I 0.432 0.375 NT-Pro-B Natriuret Pep 05/08/17 05/08/17 05/09/17 12:00 12:00 06:15 Creatine Kinase 186 H 197 H CK-MB (CK-2) 0.65 Troponin I 0.060 NT-Pro-B Natriuret Pep 05/09/17 05/13/17 05/13/17 06:15 10:50 10:50 Creatine Kinase 129 CK-MB (CK-2) 0.75 0.67 Troponin I 0.056 0.039 NT-Pro-B Natriuret Pep 32329 H 05/13/17 05/13/17 17:45 17:45 Creatine Kinase 95 CK-MB (CK-2) 1.34 Troponin I 0.083 NT-Pro-B Natriuret Pep Impressions: Head CT 05/05/17 12:43 IMPRESSION: MILD CHRONIC CHANGES OF ATROPHY AND MICROVASCULAR ISCHEMIA. NO ACUTE PROCESS. KUB X-Ray 05/05/17 13:59 IMPRESSION: NG tube appears to be in satisfactory position. Mild small-bowel distention as described. 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 There is no plain film evidence for bony involvement by osteomyelitis. Other findings as noted above Chest/Abdomen CTA 05/13/17 00:00 IMPRESSION: No CT angio evidence of acute pulmonary emboli or thoracic aortic dissection. Bilateral complete collapse of the lower lobes with small to moderate bilateral pleural effusions. Chest X-Ray 05/18/17 08:08 IMPRESSION: Stable trace bilateral pleural effusions. No dense lobar consolidation worrisome for pneumonia. Tubes and lines in good positioning Assessment & Plan - Diagnosis (1) Acute respiratory failure Qualifiers: Respiratory failure complication: unspecified whether with hypoxia or hypercapnia Qualified Code(s): J96.00 - Acute respiratory failure, unspecified whether with hypoxia or hypercapnia Is this a current diagnosis for this admission?: Yes (2) Coronary artery disease Qualifiers: Coronary Disease-Associated Artery/Lesion type: unspecified vessel or lesion type Associated angina: angina presence unspecified Is this a current diagnosis for this admission?: Yes (3) Pulmonary edema Qualifiers: Chronicity: acute Qualified Code(s): J81.0 - Acute pulmonary edema Is this a current diagnosis for this admission?: Yes (4) Pneumonia Qualifiers: Pneumonia type: due to unspecified organism Lung location: unspecified part of lung Is this a current diagnosis for this admission?: Yes (5) Hypotension Qualifiers: Hypotension type: unspecified hypotension type Qualified Code(s): I95.9 - Hypotension, unspecified Is this a current diagnosis for this admission?: Yes (6) Ventricular tachycardia Is this a current diagnosis for this admission?: Yes (7) Atrial fibrillation with RVR Is this a current diagnosis for this admission?: Yes (8) Peripheral vascular disease Is this a current diagnosis for this admission?: Yes - Notes Notes: Acute respiratory failure: Status post extubation. It seems respiratory failure was precipitated by acute pulmonary edema, patient also has significant underlying COPD. Continue with baseline diuretic therapy. Coronary artery disease: 2D echo shows anterior wall and apical akinesis. This seems related to old IN. LVEF is severely reduced. Medical management will be gradually optimized. Patient noted to have stent in the LAD. Pulmonary edema: Most likely related to LV systolic dysfunction, cannot rule out aspiration. Possibly combination. Pneumonia: Continue antibiotic therapy. Hypotension: Most likely related to severe LV systolic dysfunction, ischemia, cardiac dysrhythmia. Blood pressure has remained stable. Peripheral vascular disease: No evidence of acute limb ischemia at this point but continue to observe. Ventricular tachycardia: Patient has a functioning defibrillator. Continue p.o. amiodarone. Dose of amiodarone reduced to 200 p.o. twice daily. Atrial fibrillation with rapid ventricular response: Will recommend beta- blockers for rate control and also digoxin if needed. Probably a marginal candidate for chronic anticoagulation. Continue with DVT prophylaxis. - Time Time with patient: 15-25 minutes - CODE STATUS : was discussed, patient remains DO NOT RESUSCITATE. Surrogate decision-maker unchanged. Multiple medical problems were addressed. More than 50% of the time spent coordinating care, discussing management plans with involved caregivers. Management plans discussed with involved personnels. Medical decision making was of moderate to high complexity, patient's has multiple comorbidities. Medications reviewed and adjusted accordingly: Yes
--- NOTE | 2017-05-26 20:05 | PDOC PROGRESS REPORT ---
Subjective Progress Note for:: 05/24/17 Subjective:: Patient showing very slow improvement. Blood pressure has been stable. Patient however remains confused. Patient becomes agitated whenever he is off BiPAP for some time. Patient currently on oxygen supplementation. Currently on 4 L. Medications reviewed. Physical Exam Vital Signs: Temp Pulse Resp BP Pulse Ox 98.8 F 76 23 H 127/78 H 96 05/23/17 23:34 05/24/17 13:04 05/24/17 16:05 05/23/17 23:34 05/24/17 16:05 Intake & Output 05/23/17 05/24/17 05/25/17 06:59 06:59 06:59 Intake Total 600 600 968 Output Total 1700 850 300 Balance -1100 -250 668 Weight 70 kg 70.6 kg Exam: GENERAL: well-nourished and in no acute distress. Patient is alert but not oriented to place time or person. Patient intermittently agitated and in mild respiratory distress. HEAD: Atraumatic, normocephalic. EYES: Pupils equal round and reactive to light, extraocular movements intact, sclera anicteric, conjunctiva are normal. ENT: TMs normal, nares patent, oropharynx clear without exudates. Moist mucous membranes. No oral ulcerations or bleeding gums noted NECK: supple without lymphadenopathy or JVD. Trachea is central. No cervical or axillary lymphadenopathy noted. Carotids are 2+ LUNGS: Breath sounds bibasilar fine crackles at bases. No significant dullness noted. CHEST: Palpation of chest wall shows no significant chest wall tenderness. 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 ABDOMEN: Soft, no significant tenderness appreciated, normoactive bowel sounds. No guarding, no rebound. No rigidity noted . No masses appreciated. 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 Trace + pedal edema noted. No clubbing or cyanosis. NEUROLOGICAL: Patient is alert but is not able to participate in neurological exam because of patient's current mental status PSYCH: Patient cannot participate in a neurologic and psych exam because of the patient's current mental status SKIN: No significant ecchymosis, rash, ulcerations or signs of pruritus noted. MUSCULOSKELETAL EXAM: No significant joint swelling noted. Results Laboratory Results: 05/24/17 05:25 05/24/17 05:25 05/23/17 05/24/17 05/24/17 20:05 05:25 05:25 WBC 8.5 RBC 3.56 L Hgb 10.0 L D Hct 30.7 L MCV 86 MCH 28.2 MCHC 32.7 RDW 17.8 H Plt Count 178 Sodium 144.7 Potassium 3.6 Chloride 109 H Carbon Dioxide 31 H Anion Gap 5 BUN 17 Creatinine 0.80 Est GFR ( Amer) > 60 Est GFR (Non-Af Amer) > 60 Glucose 102 Calcium 8.8 Urine Color Urine Appearance Urine pH Ur Specific [place] Urine Protein Urine Glucose (UA) Urine Ketones Urine Blood Urine Nitrite Ur Leukocyte Esterase Urine WBC (Auto) Urine RBC (Auto) Stool Occult Blood NEGATIVE 05/24/17 16:36 WBC RBC Hgb Hct MCV MCH MCHC RDW Plt Count Sodium Potassium Chloride Carbon Dioxide Anion Gap BUN Creatinine Est GFR ( Amer) Est GFR (Non-Af Amer) Glucose Calcium Urine Color YELLOW Urine Appearance SLIGHTLY-CLOUDY Urine pH 5.0 Ur Specific [place] 1.030 Urine Protein 30 H Urine Glucose (UA) NEGATIVE Urine Ketones NEGATIVE Urine Blood NEGATIVE Urine Nitrite NEGATIVE Ur Leukocyte Esterase NEGATIVE Urine WBC (Auto) 3 Urine RBC (Auto) 5 Stool Occult Blood 05/05/17 05/05/17 05/05/17 17:15 17:15 23:30 Creatine Kinase 123 160 CK-MB (CK-2) 3.17 Troponin I 0.312 NT-Pro-B Natriuret Pep 05/05/17 05/06/17 05/06/17 23:30 04:35 04:35 Creatine Kinase 207 H CK-MB (CK-2) 4.65 H 4.97 H Troponin I 0.432 0.375 NT-Pro-B Natriuret Pep 05/08/17 05/08/17 05/09/17 12:00 12:00 06:15 Creatine Kinase 186 H 197 H CK-MB (CK-2) 0.65 Troponin I 0.060 NT-Pro-B Natriuret Pep 05/09/17 05/13/17 05/13/17 06:15 10:50 10:50 Creatine Kinase 129 CK-MB (CK-2) 0.75 0.67 Troponin I 0.056 0.039 NT-Pro-B Natriuret Pep 01333 H 05/13/17 05/13/17 17:45 17:45 Creatine Kinase 95 CK-MB (CK-2) 1.34 Troponin I 0.083 NT-Pro-B Natriuret Pep Impressions: Head CT 05/05/17 12:43 IMPRESSION: MILD CHRONIC CHANGES OF ATROPHY AND MICROVASCULAR ISCHEMIA. NO ACUTE PROCESS. KUB X-Ray 05/05/17 13:59 IMPRESSION: NG tube appears to be in satisfactory position. Mild small-bowel distention as described. 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 There is no plain film evidence for bony involvement by osteomyelitis. Other findings as noted above Chest/Abdomen CTA 05/13/17 00:00 IMPRESSION: No CT angio evidence of acute pulmonary emboli or thoracic aortic dissection. Bilateral complete collapse of the lower lobes with small to moderate bilateral pleural effusions. Chest X-Ray 05/24/17 00:00 IMPRESSION: Likely left lower lobe pneumonia with pulmonary edema right pleural effusion. Assessment & Plan - Diagnosis (1) Acute respiratory failure Qualifiers: Respiratory failure complication: unspecified whether with hypoxia or hypercapnia Qualified Code(s): J96.00 - Acute respiratory failure, unspecified whether with hypoxia or hypercapnia Is this a current diagnosis for this admission?: Yes (2) Coronary artery disease Qualifiers: Coronary Disease-Associated Artery/Lesion type: unspecified vessel or lesion type Associated angina: angina presence unspecified Is this a current diagnosis for this admission?: Yes (3) Pulmonary edema Qualifiers: Chronicity: acute Qualified Code(s): J81.0 - Acute pulmonary edema Is this a current diagnosis for this admission?: Yes (4) Pneumonia Qualifiers: Pneumonia type: due to unspecified organism Lung location: unspecified part of lung Is this a current diagnosis for this admission?: Yes (5) Hypotension Qualifiers: Hypotension type: unspecified hypotension type Qualified Code(s): I95.9 - Hypotension, unspecified Is this a current diagnosis for this admission?: Yes (6) Ventricular tachycardia Is this a current diagnosis for this admission?: Yes (7) Atrial fibrillation with RVR Is this a current diagnosis for this admission?: Yes (8) Peripheral vascular disease Is this a current diagnosis for this admission?: Yes - Notes Notes: Acute respiratory failure: Continue with bilevel therapy. It seems respiratory failure was precipitated by acute pulmonary edema, patient also has significant underlying COPD. Continue with baseline diuretic therapy. Coronary artery disease: 2D echo shows anterior wall and apical akinesis. This seems related to old VA. LVEF is severely reduced. Medical management will be gradually optimized. Patient noted to have stent in the LAD. Pulmonary edema: Most likely related to LV systolic dysfunction, cannot rule out aspiration. Possibly combination. Pneumonia: Continue antibiotic therapy. Hypotension: Most likely related to severe LV systolic dysfunction, ischemia, cardiac dysrhythmia. Blood pressure has remained stable. Peripheral vascular disease: No evidence of acute limb ischemia at this point but continue to observe. Ventricular tachycardia: Patient has a functioning defibrillator. Continue p.o. amiodarone. Dose of amiodarone reduced to 200 p.o. twice daily. Atrial fibrillation with rapid ventricular response: Will recommend beta- blockers for rate control and also digoxin if needed. Probably a marginal candidate for chronic anticoagulation. Continue with DVT prophylaxis. Patient now off radiation monitor. Will sign off. Please reconsult if needed. - Time Time with patient: 15-25 minutes - CODE STATUS : was discussed, patient remains DO NOT RESUSCITATE. Surrogate decision-maker unchanged. Multiple medical problems were addressed. More than 50% of the time spent coordinating care, discussing management plans with involved caregivers. Management plans discussed with involved personnels. Medications reviewed and adjusted accordingly: Yes
--- NOTE | 2017-05-26 20:40 | PDOC PROGRESS REPORT ---
Subjective Progress Note for:: 05/26/17 Subjective:: Patient is seen by the bedside, patient has improved significantly the plan is to transfer to assisted for rehab transferred to Physical Exam Vital Signs: Temp Pulse Resp BP Pulse Ox 98.9 F 107 H 29 H 137/84 H 96 05/26/17 16:45 05/26/17 19:59 05/26/17 19:59 05/26/17 16:45 05/26/17 19:59 Intake & Output 05/25/17 05/26/17 05/27/17 06:59 06:59 06:59 Intake Total 1358 560 270 Output Total 600 200 300 Balance 758 360 -30 Weight 73.6 kg 73.6 kg General appearance: PRESENT: no acute distress Eye exam: PRESENT: PERRLA Respiratory exam: PRESENT: clear to auscultation srikanth Cardiovascular exam: PRESENT: +S1, +S2 GI/Abdominal exam: PRESENT: soft Results Laboratory Results: 05/26/17 05:00 05/26/17 05:00 05/26/17 05/26/17 05/26/17 05:00 05:00 13:00 WBC 8.0 RBC 3.69 L Hgb 10.4 L Hct 31.5 L MCV 85 MCH 28.2 MCHC 33.1 RDW 16.9 H Plt Count 205 Sodium 139.7 Potassium 3.7 Chloride 104 Carbon Dioxide 28 Anion Gap 8 BUN 15 Creatinine 0.78 Est GFR ( Amer) > 60 Est GFR (Non-Af Amer) > 60 Glucose 98 Calcium 8.9 Stool Occult Blood NEGATIVE 05/05/17 05/05/17 05/05/17 17:15 17:15 23:30 Creatine Kinase 123 160 CK-MB (CK-2) 3.17 Troponin I 0.312 NT-Pro-B Natriuret Pep 05/05/17 05/06/17 05/06/17 23:30 04:35 04:35 Creatine Kinase 207 H CK-MB (CK-2) 4.65 H 4.97 H Troponin I 0.432 0.375 NT-Pro-B Natriuret Pep 05/08/17 05/08/17 05/09/17 12:00 12:00 06:15 Creatine Kinase 186 H 197 H CK-MB (CK-2) 0.65 Troponin I 0.060 NT-Pro-B Natriuret Pep 05/09/17 05/13/17 05/13/17 06:15 10:50 10:50 Creatine Kinase 129 CK-MB (CK-2) 0.75 0.67 Troponin I 0.056 0.039 NT-Pro-B Natriuret Pep 38323 H 05/13/17 05/13/17 17:45 17:45 Creatine Kinase 95 CK-MB (CK-2) 1.34 Troponin I 0.083 NT-Pro-B Natriuret Pep Impressions: Head CT 05/05/17 12:43 IMPRESSION: MILD CHRONIC CHANGES OF ATROPHY AND MICROVASCULAR ISCHEMIA. NO ACUTE PROCESS. KUB X-Ray 05/05/17 13:59 IMPRESSION: NG tube appears to be in satisfactory position. Mild small-bowel distention as described. 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 There is no plain film evidence for bony involvement by osteomyelitis. Other findings as noted above Chest/Abdomen CTA 05/13/17 00:00 IMPRESSION: No CT angio evidence of acute pulmonary emboli or thoracic aortic dissection. Bilateral complete collapse of the lower lobes with small to moderate bilateral pleural effusions. Chest X-Ray 05/24/17 00:00 IMPRESSION: Likely left lower lobe pneumonia with pulmonary edema right pleural effusion. Assessment & Plan - Diagnosis (1) Septic shock Is this a current diagnosis for this admission?: No (2) Metabolic acidosis with increased anion gap and accumulation of organic acids Is this a current diagnosis for this admission?: Yes (3) Elevated troponin Is this a current diagnosis for this admission?: Yes (4) Pseudomonal sepsis Is this a current diagnosis for this admission?: Yes (5) Anemia Qualifiers: Anemia type: unspecified type Qualified Code(s): D64.9 - Anemia, unspecified Is this a current diagnosis for this admission?: Yes (6) Acute respiratory failure Qualifiers: Respiratory failure complication: unspecified whether with hypoxia or hypercapnia Qualified Code(s): J96.00 - Acute respiratory failure, unspecified whether with hypoxia or hypercapnia Is this a current diagnosis for this admission?: Yes (7) Atrial fibrillation with RVR Is this a current diagnosis for this admission?: Yes (8) Constipation Qualifiers: Constipation type: unspecified constipation type Qualified Code(s): K59.00 - Constipation, unspecified Is this a current diagnosis for this admission?: Yes
[2017-05-26] MEDS: ATORVASTATIN CALCIUM 40 MG TABLET PO SCH (21:37)
[2017-05-27] MEDS: IPRATROPIUM/ALBUTEROL 0.5-2.5 MG/3 ML AMPUL NEB SCH ×4 (01:49→19:43)
[2017-05-27 05:05] LABS: ANION GAP 14 (5-19); BLOOD UREA NITROGEN 14 mg/dL (7-20); CARBON DIOXIDE 25 mmol/L (22-30); CHLORIDE 101 mmol/L (98-107); CREATININE RESULT 0.78 mg/dL (0.52-1.25); GLUCOSE 121 mg/dL (75-110); POTASSIUM 3.7 mmol/L (3.6-5.0); SODIUM 139.7 mmol/L (137-145)
[2017-05-27] MEDS: LANSOPRAZOLE 30 MG TAB.RAP.DR PO SCH ×2 (05:26→16:41)
[2017-05-27] MEDS: CARVEDILOL 12.5 MG TABLET PO SCH ×2 (10:20→22:48)
[2017-05-27] MEDS: ENOXAPARIN SODIUM INJ 30 MG/0.3 ML DISP.SYRIN SUBCUT SCH ×2 (10:20→22:50)
[2017-05-27] MEDS: BISACODYL 5 MG TABEC PO SCH (10:20)
[2017-05-27] MEDS: AMIODARONE HCL 200 MG TABLET PO SCH ×2 (10:20→22:50)
[2017-05-27] MEDS: LISINOPRIL 10 MG TABLET PO SCH ×2 (10:21→22:49)
--- NOTE | 2017-05-27 11:08 | PDOC PROGRESS REPORT ---
Subjective Progress Note for:: 05/27/17 Subjective:: Patient is currently doing same still confused currently on nasal cannula According to the nursing staff no other events happens Patients waiting to going to the rehab Physical Exam Vital Signs: Temp Pulse Resp BP Pulse Ox 98.1 F 94 30 H 169/108 H 98 05/27/17 07:31 05/27/17 08:00 05/27/17 08:00 05/27/17 07:31 05/27/17 08:00 Intake & Output 05/26/17 05/27/17 05/28/17 06:59 06:59 06:59 Intake Total 560 470 Output Total 200 300 Balance 360 170 Weight 73.6 kg 73.6 kg General appearance: PRESENT: no acute distress Eye exam: PRESENT: PERRLA Mouth exam: PRESENT: neck supple Neck exam: ABSENT: full ROM Respiratory exam: PRESENT: decreased breath sounds Cardiovascular exam: PRESENT: +S1, +S2 GI/Abdominal exam: PRESENT: normal bowel sounds, soft Neurological exam: PRESENT: altered Results Laboratory Results: 05/26/17 05:00 05/27/17 03:45 05/26/17 05/27/17 13:00 03:45 Sodium 139.7 Potassium 3.7 Chloride 101 Carbon Dioxide 25 Anion Gap 14 BUN 14 Creatinine 0.78 Est GFR ( Amer) > 60 Est GFR (Non-Af Amer) > 60 Glucose 121 H Calcium 9.0 Stool Occult Blood NEGATIVE 05/05/17 05/05/17 05/05/17 17:15 17:15 23:30 Creatine Kinase 123 160 CK-MB (CK-2) 3.17 Troponin I 0.312 NT-Pro-B Natriuret Pep 05/05/17 05/06/17 05/06/17 23:30 04:35 04:35 Creatine Kinase 207 H CK-MB (CK-2) 4.65 H 4.97 H Troponin I 0.432 0.375 NT-Pro-B Natriuret Pep 05/08/17 05/08/17 05/09/17 12:00 12:00 06:15 Creatine Kinase 186 H 197 H CK-MB (CK-2) 0.65 Troponin I 0.060 NT-Pro-B Natriuret Pep 05/09/17 05/13/17 05/13/17 06:15 10:50 10:50 Creatine Kinase 129 CK-MB (CK-2) 0.75 0.67 Troponin I 0.056 0.039 NT-Pro-B Natriuret Pep 86544 H 05/13/17 05/13/17 17:45 17:45 Creatine Kinase 95 CK-MB (CK-2) 1.34 Troponin I 0.083 NT-Pro-B Natriuret Pep Impressions: Head CT 05/05/17 12:43 IMPRESSION: MILD CHRONIC CHANGES OF ATROPHY AND MICROVASCULAR ISCHEMIA. NO ACUTE PROCESS. KUB X-Ray 05/05/17 13:59 IMPRESSION: NG tube appears to be in satisfactory position. Mild small-bowel distention as described. 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 There is no plain film evidence for bony involvement by osteomyelitis. Other findings as noted above Chest/Abdomen CTA 05/13/17 00:00 IMPRESSION: No CT angio evidence of acute pulmonary emboli or thoracic aortic dissection. Bilateral complete collapse of the lower lobes with small to moderate bilateral pleural effusions. Chest X-Ray 05/24/17 00:00 IMPRESSION: Likely left lower lobe pneumonia with pulmonary edema right pleural effusion. Assessment & Plan - Diagnosis (1) Acute respiratory failure with hypercapnia Is this a current diagnosis for this admission?: Yes Plan: Continues to current medicationsCurrently on a BiPAP and the nasal cannula (2) Lactic acidosis Is this a current diagnosis for this admission?: No Plan: All resolved (3) Pseudomonal sepsis Is this a current diagnosis for this admission?: Yes Plan: Continues IV medications (4) Septic shock Is this a current diagnosis for this admission?: No (5) Atrial fibrillation with RVR Is this a current diagnosis for this admission?: Yes Plan: Currently stable (6) Coronary artery disease Qualifiers: Coronary Disease-Associated Artery/Lesion type: unspecified vessel or lesion type Associated angina: angina presence unspecified Is this a current diagnosis for this admission?: Yes Plan: Status post defibrillator currently stable patient is DNR (7) Pulmonary edema Qualifiers: Chronicity: acute Qualified Code(s): J81.0 - Acute pulmonary edema Is this a current diagnosis for this admission?: Yes (8) Anemia Qualifiers: Anemia type: unspecified type Qualified Code(s): D64.9 - Anemia, unspecified Is this a current diagnosis for this admission?: Yes - Time Time Spent with patient: 15-24 minutes Medications reviewed and adjusted accordingly: Yes Anticipated discharge: SNF - Inpatient Certification Medical Necessity: Need Close Monitoring Due to Risk of Patient Decompensation Post Hospital Care: D/C Industrial Engineering Technician Documentation - Plan Summary Plan Summary: Still very poor prognosis continues current medicationsPatient is currently DNR/ DNI
[2017-05-27] MEDS: COLLAGENASE CLOSTRIDIUM HIST. OINT 30 GM TOP SCH ×2 (16:56→22:53)
[2017-05-27] MEDS: TAMSULOSIN HCL 0.4 MG CAP.SR.24H PO SCH (16:56)
[2017-05-27] MEDS: ATORVASTATIN CALCIUM 40 MG TABLET PO SCH (22:49)
[2017-05-28] MEDS: IPRATROPIUM/ALBUTEROL 0.5-2.5 MG/3 ML AMPUL NEB SCH ×4 (01:58→20:03)
[2017-05-28] MEDS: LANSOPRAZOLE 30 MG TAB.RAP.DR PO SCH ×2 (06:37→17:21)
[2017-05-28 07:36] LABS: ANION GAP 6 (5-19); BLOOD UREA NITROGEN 10 mg/dL (7-20); CALCIUM 8.6 mg/dL (8.4-10.2); CARBON DIOXIDE 31 mmol/L (22-30); CHLORIDE 102 mmol/L (98-107); CREATININE RESULT 0.77 mg/dL (0.52-1.25); GLUCOSE 90 mg/dL (75-110); POTASSIUM 3.2 mmol/L (3.6-5.0); SODIUM 138.9 mmol/L (137-145)
[2017-05-28] MEDS: ENOXAPARIN SODIUM INJ 30 MG/0.3 ML DISP.SYRIN SUBCUT SCH ×2 (10:09→22:29)
[2017-05-28] MEDS: LISINOPRIL 10 MG TABLET PO SCH ×2 (10:10→22:25)
[2017-05-28] MEDS: CARVEDILOL 12.5 MG TABLET PO SCH ×2 (10:10→22:30)
[2017-05-28] MEDS: AMIODARONE HCL 200 MG TABLET PO SCH ×2 (10:10→22:30)
--- NOTE | 2017-05-28 11:13 | PDOC PROGRESS REPORT ---
Subjective Progress Note for:: 05/28/17 Subjective:: Patient is currently doing same still confused currently on nasal cannula According to the nursing staff no other events happens Patients waiting to going to the rehab Physical Exam Vital Signs: Temp Pulse Resp BP Pulse Ox 97.8 F 73 16 139/78 H 97 05/28/17 07:27 05/28/17 07:33 05/28/17 07:33 05/28/17 07:27 05/28/17 07:33 Intake & Output 05/27/17 05/28/17 05/29/17 06:59 06:59 06:59 Intake Total 470 750 Output Total 300 Balance 170 750 Weight 73.6 kg 73.6 kg General appearance: PRESENT: no acute distress Eye exam: PRESENT: PERRLA Mouth exam: PRESENT: neck supple Respiratory exam: PRESENT: clear to auscultation srikanth Cardiovascular exam: PRESENT: +S1, +S2 GI/Abdominal exam: PRESENT: normal bowel sounds, soft Neurological exam: PRESENT: alert, altered, awake Skin exam: PRESENT: dry Results Laboratory Results: 05/26/17 05:00 05/28/17 07:00 05/28/17 07:00 Sodium 138.9 Potassium 3.2 L Chloride 102 Carbon Dioxide 31 H Anion Gap 6 BUN 10 Creatinine 0.77 Est GFR ( Amer) > 60 Est GFR (Non-Af Amer) > 60 Glucose 90 Calcium 8.6 05/05/17 05/05/17 05/05/17 17:15 17:15 23:30 Creatine Kinase 123 160 CK-MB (CK-2) 3.17 Troponin I 0.312 NT-Pro-B Natriuret Pep 05/05/17 05/06/17 05/06/17 23:30 04:35 04:35 Creatine Kinase 207 H CK-MB (CK-2) 4.65 H 4.97 H Troponin I 0.432 0.375 NT-Pro-B Natriuret Pep 05/08/17 05/08/17 05/09/17 12:00 12:00 06:15 Creatine Kinase 186 H 197 H CK-MB (CK-2) 0.65 Troponin I 0.060 NT-Pro-B Natriuret Pep 05/09/17 05/13/17 05/13/17 06:15 10:50 10:50 Creatine Kinase 129 CK-MB (CK-2) 0.75 0.67 Troponin I 0.056 0.039 NT-Pro-B Natriuret Pep 61182 H 05/13/17 05/13/17 17:45 17:45 Creatine Kinase 95 CK-MB (CK-2) 1.34 Troponin I 0.083 NT-Pro-B Natriuret Pep Impressions: Head CT 05/05/17 12:43 IMPRESSION: MILD CHRONIC CHANGES OF ATROPHY AND MICROVASCULAR ISCHEMIA. NO ACUTE PROCESS. KUB X-Ray 05/05/17 13:59 IMPRESSION: NG tube appears to be in satisfactory position. Mild small-bowel distention as described. 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 There is no plain film evidence for bony involvement by osteomyelitis. Other findings as noted above Chest/Abdomen CTA 05/13/17 00:00 IMPRESSION: No CT angio evidence of acute pulmonary emboli or thoracic aortic dissection. Bilateral complete collapse of the lower lobes with small to moderate bilateral pleural effusions. Chest X-Ray 05/24/17 00:00 IMPRESSION: Likely left lower lobe pneumonia with pulmonary edema right pleural effusion. Assessment & Plan - Diagnosis (1) Acute respiratory failure with hypercapnia Is this a current diagnosis for this admission?: Yes Plan: Continues to current medicationsCurrently on a BiPAP and the nasal cannula (2) Lactic acidosis Is this a current diagnosis for this admission?: No Plan: All resolved (3) Pseudomonal sepsis Is this a current diagnosis for this admission?: Yes Plan: Continues IV medications (4) Septic shock Is this a current diagnosis for this admission?: No Plan: Is all improving (5) Atrial fibrillation with RVR Is this a current diagnosis for this admission?: Yes Plan: Currently stable (6) Coronary artery disease Qualifiers: Coronary Disease-Associated Artery/Lesion type: unspecified vessel or lesion type Associated angina: angina presence unspecified Is this a current diagnosis for this admission?: Yes Plan: Status post defibrillator currently stable patient is DNR (7) Pulmonary edema Qualifiers: Chronicity: acute Qualified Code(s): J81.0 - Acute pulmonary edema Is this a current diagnosis for this admission?: Yes Plan: Nightly on IV Lasix will repeat the chest x-ray CT angiogram negative for PE (8) Anemia Qualifiers: Anemia type: unspecified type Qualified Code(s): D64.9 - Anemia, unspecified Is this a current diagnosis for this admission?: Yes Plan: Continues to monitor the patient if it below 8 we will transfuse the blood - Time Time Spent with patient: Less than 15 minutes Medications reviewed and adjusted accordingly: Yes Within: Other - Inpatient Certification Medical Necessity: Need Close Monitoring Due to Risk of Patient Decompensation Post Hospital Care: D/C Vocational Psychologist Documentation - Plan Summary Plan Summary: cont curr med
[2017-05-28] MEDS: BISACODYL 5 MG TABEC PO SCH (13:50)
[2017-05-28] MEDS: COLLAGENASE CLOSTRIDIUM HIST. OINT 30 GM TOP SCH ×2 (15:56→22:30)
[2017-05-28] MEDS: TAMSULOSIN HCL 0.4 MG CAP.SR.24H PO SCH (17:22)
[2017-05-28] MEDS: ATORVASTATIN CALCIUM 40 MG TABLET PO SCH (22:30)
[2017-05-29] MEDS: IPRATROPIUM/ALBUTEROL 0.5-2.5 MG/3 ML AMPUL NEB SCH ×4 (01:48→19:50)
[2017-05-29] MEDS: LANSOPRAZOLE 30 MG TAB.RAP.DR PO SCH ×2 (05:58→18:11)
[2017-05-29 06:35] LABS: HEMATOCRIT 29.5 % (37.9-51.0); HEMOGLOBIN 9.6 g/dL (13.5-17.0); HGB HCT DIFFERENCE -0.7; MEAN CORPUSCULAR HEMOGLOBIN 27.5 pg (27.0-33.4); MEAN CORPUSCULAR HGB CONC 32.5 g/dL (32.0-36.0); MEAN CORPUSCULAR VOLUME 85 fl (80-97); RED BLOOD COUNT 3.49 10^6/uL (4.35-5.55); WHITE BLOOD COUNT 8.5 10^3/uL (4.0-10.5)
[2017-05-29 06:46] LABS: ANION GAP 8 (5-19); BLOOD UREA NITROGEN 12 mg/dL (7-20); CALCIUM 8.5 mg/dL (8.4-10.2); CARBON DIOXIDE 29 mmol/L (22-30); CHLORIDE 102 mmol/L (98-107); CREATININE RESULT 0.72 mg/dL (0.52-1.25); GLUCOSE 96 mg/dL (75-110); POTASSIUM 3.2 mmol/L (3.6-5.0); SODIUM 138.7 mmol/L (137-145)
[2017-05-29] MEDS: CARVEDILOL 12.5 MG TABLET PO SCH ×2 (10:53→22:17)
[2017-05-29] MEDS: ENOXAPARIN SODIUM INJ 30 MG/0.3 ML DISP.SYRIN SUBCUT SCH ×2 (10:53→22:15)
[2017-05-29] MEDS: AMIODARONE HCL 200 MG TABLET PO SCH ×2 (10:53→22:16)
[2017-05-29] MEDS: COLLAGENASE CLOSTRIDIUM HIST. OINT 30 GM TOP SCH ×2 (10:53→22:16)
[2017-05-29] MEDS: LISINOPRIL 10 MG TABLET PO SCH ×2 (10:53→22:16)
[2017-05-29] MEDS: BISACODYL 5 MG TABEC PO SCH (10:53)
[2017-05-29] MEDS ORDERED: POTASSIUM CHLORIDE 10 MEQ TABLET.SA PO ONE (11:00)
--- NOTE | 2017-05-29 11:02 | PDOC PROGRESS REPORT ---
Subjective Progress Note for:: 05/29/17 Subjective:: Is currently doing fair. Patient's denied any chest pain that any shortness of the breath currently on a nasal cannula Physical Exam Vital Signs: Temp Pulse Resp BP Pulse Ox 99.4 F 86 14 155/89 H 100 05/29/17 07:30 05/29/17 08:40 05/29/17 08:40 05/29/17 07:30 05/29/17 08:40 Intake & Output 05/28/17 05/29/17 05/30/17 06:59 06:59 06:59 Intake Total 750 1050 Balance 750 1050 Weight 73.6 kg 73.6 kg General appearance: PRESENT: no acute distress, well-developed, well-nourished Head exam: PRESENT: atraumatic, normocephalic Eye exam: PRESENT: conjunctiva pink, EOMI, PERRLA. ABSENT: scleral icterus Ear exam: PRESENT: normal external ear exam Mouth exam: PRESENT: moist, tongue midline Neck exam: PRESENT: full ROM. ABSENT: carotid bruit, JVD, lymphadenopathy, thyromegaly Respiratory exam: PRESENT: clear to auscultation srikanth Cardiovascular exam: PRESENT: RRR. ABSENT: diastolic murmur, rubs, systolic murmur Pulses: PRESENT: normal dorsalis pedis pul, +2 pedal pulses bilateral Vascular exam: PRESENT: normal capillary refill GI/Abdominal exam: PRESENT: normal bowel sounds, soft. ABSENT: distended, guarding, mass, organolmegaly, rebound, tenderness Rectal exam: PRESENT: deferred Neurological exam: PRESENT: alert, awake, oriented to person. ABSENT: motor sensory deficit Psychiatric exam: PRESENT: appropriate affect, normal mood. ABSENT: homicidal ideation, suicidal ideation Skin exam: PRESENT: dry, intact, warm. ABSENT: cyanosis, rash Results Laboratory Results: 05/29/17 06:00 05/29/17 06:00 05/29/17 05/29/17 06:00 06:00 WBC 8.5 RBC 3.49 L Hgb 9.6 L Hct 29.5 L MCV 85 MCH 27.5 MCHC 32.5 RDW 17.0 H Plt Count 202 Sodium 138.7 Potassium 3.2 L Chloride 102 Carbon Dioxide 29 Anion Gap 8 BUN 12 Creatinine 0.72 Est GFR ( Amer) > 60 Est GFR (Non-Af Amer) > 60 Glucose 96 Calcium 8.5 05/05/17 05/05/17 05/05/17 17:15 17:15 23:30 Creatine Kinase 123 160 CK-MB (CK-2) 3.17 Troponin I 0.312 NT-Pro-B Natriuret Pep 05/05/17 05/06/17 05/06/17 23:30 04:35 04:35 Creatine Kinase 207 H CK-MB (CK-2) 4.65 H 4.97 H Troponin I 0.432 0.375 NT-Pro-B Natriuret Pep 05/08/17 05/08/17 05/09/17 12:00 12:00 06:15 Creatine Kinase 186 H 197 H CK-MB (CK-2) 0.65 Troponin I 0.060 NT-Pro-B Natriuret Pep 05/09/17 05/13/17 05/13/17 06:15 10:50 10:50 Creatine Kinase 129 CK-MB (CK-2) 0.75 0.67 Troponin I 0.056 0.039 NT-Pro-B Natriuret Pep 13372 H 05/13/17 05/13/17 17:45 17:45 Creatine Kinase 95 CK-MB (CK-2) 1.34 Troponin I 0.083 NT-Pro-B Natriuret Pep Impressions: Head CT 05/05/17 12:43 IMPRESSION: MILD CHRONIC CHANGES OF ATROPHY AND MICROVASCULAR ISCHEMIA. NO ACUTE PROCESS. KUB X-Ray 05/05/17 13:59 IMPRESSION: NG tube appears to be in satisfactory position. Mild small-bowel distention as described. 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 There is no plain film evidence for bony involvement by osteomyelitis. Other findings as noted above Chest/Abdomen CTA 05/13/17 00:00 IMPRESSION: No CT angio evidence of acute pulmonary emboli or thoracic aortic dissection. Bilateral complete collapse of the lower lobes with small to moderate bilateral pleural effusions. Chest X-Ray 05/24/17 00:00 IMPRESSION: Likely left lower lobe pneumonia with pulmonary edema right pleural effusion. Assessment & Plan - Diagnosis (1) Acute respiratory failure with hypercapnia Is this a current diagnosis for this admission?: Yes Plan: Continues to current medicationsCurrently on a BiPAP and the nasal cannula (2) Lactic acidosis Is this a current diagnosis for this admission?: No Plan: All resolved (3) Pseudomonal sepsis Is this a current diagnosis for this admission?: Yes Plan: Continues IV medications (4) Septic shock Is this a current diagnosis for this admission?: No Plan: Is all improving (5) Atrial fibrillation with RVR Is this a current diagnosis for this admission?: Yes Plan: Currently stable (6) Coronary artery disease Qualifiers: Coronary Disease-Associated Artery/Lesion type: unspecified vessel or lesion type Associated angina: angina presence unspecified Is this a current diagnosis for this admission?: Yes Plan: Status post defibrillator currently stable patient is DNR (7) Pulmonary edema Qualifiers: Chronicity: acute Qualified Code(s): J81.0 - Acute pulmonary edema Is this a current diagnosis for this admission?: Yes (8) Anemia Qualifiers: Anemia type: unspecified type Qualified Code(s): D64.9 - Anemia, unspecified Is this a current diagnosis for this admission?: Yes - Time Time Spent with patient: 15-24 minutes Medications reviewed and adjusted accordingly: Yes Anticipated discharge: SNF Within: Other - Inpatient Certification Medical Necessity: Need Close Monitoring Due to Risk of Patient Decompensation 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
[2017-05-29] MEDS: TAMSULOSIN HCL 0.4 MG CAP.SR.24H PO SCH (18:11)
[2017-05-29] MEDS: ATORVASTATIN CALCIUM 40 MG TABLET PO SCH (22:16)
[2017-05-30] MEDS: IPRATROPIUM/ALBUTEROL 0.5-2.5 MG/3 ML AMPUL NEB SCH ×4 (01:51→20:42)
[2017-05-30] MEDS: LANSOPRAZOLE 30 MG TAB.RAP.DR PO SCH ×2 (05:50→17:17)
[2017-05-30 06:31] LABS: ANION GAP 9 (5-19); BLOOD UREA NITROGEN 10 mg/dL (7-20); CALCIUM 8.7 mg/dL (8.4-10.2); CARBON DIOXIDE 30 mmol/L (22-30); CHLORIDE 101 mmol/L (98-107); CREATININE RESULT 0.76 mg/dL (0.52-1.25); GLUCOSE 110 mg/dL (75-110); POTASSIUM 3.7 mmol/L (3.6-5.0); SODIUM 139.9 mmol/L (137-145)
[2017-05-30] MEDS: COLLAGENASE CLOSTRIDIUM HIST. OINT 30 GM TOP SCH ×2 (10:58→21:37)
[2017-05-30] MEDS: AMIODARONE HCL 200 MG TABLET PO SCH ×2 (10:58→21:36)
[2017-05-30] MEDS: ENOXAPARIN SODIUM INJ 30 MG/0.3 ML DISP.SYRIN SUBCUT SCH ×2 (10:58→21:39)
[2017-05-30] MEDS: LISINOPRIL 10 MG TABLET PO SCH ×2 (10:59→21:35)
[2017-05-30] MEDS: BISACODYL 5 MG TABEC PO SCH (10:59)
[2017-05-30] MEDS: CARVEDILOL 12.5 MG TABLET PO SCH ×2 (10:59→21:36)
[2017-05-30] MEDS: ACETAMINOPHEN SOLN 325 MG/10.15 ML UDCUP PO PRN (17:17)
[2017-05-30] MEDS: TAMSULOSIN HCL 0.4 MG CAP.SR.24H PO SCH (17:17)
--- NOTE | 2017-05-30 21:19 | PDOC PROGRESS REPORT ---
Subjective Progress Note for:: 05/30/17 Subjective:: Patient had was seen by the bedside, the plan is to transfer to residential in the morning, there are normal acute events to address. Physical Exam Vital Signs: Temp Pulse Resp BP Pulse Ox 99.3 F 67 16 104/64 98 05/30/17 19:31 05/30/17 20:41 05/30/17 20:41 05/30/17 19:31 05/30/17 20:41 Intake & Output 05/29/17 05/30/17 05/31/17 06:59 06:59 06:59 Intake Total 1050 1060 630 Balance 1050 1060 630 Weight 73.6 kg 68.6 kg General appearance: PRESENT: no acute distress Eye exam: PRESENT: PERRLA Respiratory exam: PRESENT: clear to auscultation srikanth Cardiovascular exam: PRESENT: +S1, +S2 GI/Abdominal exam: PRESENT: soft Results Laboratory Results: 05/29/17 06:00 05/30/17 06:02 05/30/17 06:02 Sodium 139.9 Potassium 3.7 Chloride 101 Carbon Dioxide 30 Anion Gap 9 BUN 10 Creatinine 0.76 Est GFR ( Amer) > 60 Est GFR (Non-Af Amer) > 60 Glucose 110 Calcium 8.7 05/05/17 05/05/17 05/05/17 17:15 17:15 23:30 Creatine Kinase 123 160 CK-MB (CK-2) 3.17 Troponin I 0.312 NT-Pro-B Natriuret Pep 05/05/17 05/06/17 05/06/17 23:30 04:35 04:35 Creatine Kinase 207 H CK-MB (CK-2) 4.65 H 4.97 H Troponin I 0.432 0.375 NT-Pro-B Natriuret Pep 05/08/17 05/08/17 05/09/17 12:00 12:00 06:15 Creatine Kinase 186 H 197 H CK-MB (CK-2) 0.65 Troponin I 0.060 NT-Pro-B Natriuret Pep 05/09/17 05/13/17 05/13/17 06:15 10:50 10:50 Creatine Kinase 129 CK-MB (CK-2) 0.75 0.67 Troponin I 0.056 0.039 NT-Pro-B Natriuret Pep 13348 H 05/13/17 05/13/17 17:45 17:45 Creatine Kinase 95 CK-MB (CK-2) 1.34 Troponin I 0.083 NT-Pro-B Natriuret Pep Impressions: Head CT 05/05/17 12:43 IMPRESSION: MILD CHRONIC CHANGES OF ATROPHY AND MICROVASCULAR ISCHEMIA. NO ACUTE PROCESS. KUB X-Ray 05/05/17 13:59 IMPRESSION: NG tube appears to be in satisfactory position. Mild small-bowel distention as described. 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 There is no plain film evidence for bony involvement by osteomyelitis. Other findings as noted above Chest/Abdomen CTA 05/13/17 00:00 IMPRESSION: No CT angio evidence of acute pulmonary emboli or thoracic aortic dissection. Bilateral complete collapse of the lower lobes with small to moderate bilateral pleural effusions. Chest X-Ray 05/24/17 00:00 IMPRESSION: Likely left lower lobe pneumonia with pulmonary edema right pleural effusion. Assessment & Plan - Diagnosis (1) Septic shock Is this a current diagnosis for this admission?: No (2) Metabolic acidosis with increased anion gap and accumulation of organic acids Is this a current diagnosis for this admission?: Yes (3) Elevated troponin Is this a current diagnosis for this admission?: Yes (4) Pseudomonal sepsis Is this a current diagnosis for this admission?: Yes (5) Anemia Qualifiers: Anemia type: unspecified type Qualified Code(s): D64.9 - Anemia, unspecified Is this a current diagnosis for this admission?: Yes (6) Acute respiratory failure Qualifiers: Respiratory failure complication: unspecified whether with hypoxia or hypercapnia Qualified Code(s): J96.00 - Acute respiratory failure, unspecified whether with hypoxia or hypercapnia Is this a current diagnosis for this admission?: Yes (7) Atrial fibrillation with RVR Is this a current diagnosis for this admission?: Yes (8) Constipation Qualifiers: Constipation type: unspecified constipation type Qualified Code(s): K59.00 - Constipation, unspecified Is this a current diagnosis for this admission?: Yes
[2017-05-30] MEDS: ATORVASTATIN CALCIUM 40 MG TABLET PO SCH (21:35)
[2017-05-31] MEDS: IPRATROPIUM/ALBUTEROL 0.5-2.5 MG/3 ML AMPUL NEB SCH ×4 (01:51→20:08)
[2017-05-31] MEDS: LANSOPRAZOLE 30 MG TAB.RAP.DR PO SCH ×2 (05:23→16:13)
[2017-05-31 05:52] LABS: HEMATOCRIT 29.5 % (37.9-51.0); HEMOGLOBIN 9.6 g/dL (13.5-17.0); HGB HCT DIFFERENCE -0.7; MEAN CORPUSCULAR HEMOGLOBIN 27.4 pg (27.0-33.4); MEAN CORPUSCULAR HGB CONC 32.5 g/dL (32.0-36.0); MEAN CORPUSCULAR VOLUME 84 fl (80-97); RED CELL DISTRIBUTION WIDTH 17.1 % (11.5-14.0); WHITE BLOOD COUNT 6.7 10^3/uL (4.0-10.5)
[2017-05-31 07:03] LABS: ANION GAP 10 (5-19); BLOOD UREA NITROGEN 9 mg/dL (7-20); CALCIUM 8.7 mg/dL (8.4-10.2); CARBON DIOXIDE 30 mmol/L (22-30); CHLORIDE 100 mmol/L (98-107); CREATININE RESULT 0.75 mg/dL (0.52-1.25); GLUCOSE 135 mg/dL (75-110); POTASSIUM 3.8 mmol/L (3.6-5.0); SODIUM 140.3 mmol/L (137-145)
[2017-05-31] MEDS: ENOXAPARIN SODIUM INJ 30 MG/0.3 ML DISP.SYRIN SUBCUT SCH ×2 (09:06→22:34)
[2017-05-31] MEDS: CARVEDILOL 12.5 MG TABLET PO SCH ×2 (09:07→22:34)
[2017-05-31] MEDS: AMIODARONE HCL 200 MG TABLET PO SCH ×2 (09:08→22:34)
[2017-05-31] MEDS: LISINOPRIL 10 MG TABLET PO SCH ×2 (09:08→22:34)
[2017-05-31] MEDS: COLLAGENASE CLOSTRIDIUM HIST. OINT 30 GM TOP SCH ×2 (10:58→22:37)
[2017-05-31] MEDS: BISACODYL 5 MG TABEC PO SCH (12:09)
--- NOTE | 2017-05-31 14:12 | PDOC TRANSFER SUMMARY ---
General - Admit/Disc Date/PCP Admission Date/Primary Care Provider: 05/05/17 14:45 Discharge Date: 05/31/17 - Discharge Diagnosis (1) Septic shock Is this a current diagnosis for this admission?: No (2) Metabolic acidosis with increased anion gap and accumulation of organic acids Is this a current diagnosis for this admission?: Yes (3) Elevated troponin Is this a current diagnosis for this admission?: Yes (4) Pseudomonal sepsis Is this a current diagnosis for this admission?: Yes (5) Anemia Is this a current diagnosis for this admission?: Yes (6) Acute respiratory failure Is this a current diagnosis for this admission?: Yes (7) Atrial fibrillation with RVR Is this a current diagnosis for this admission?: Yes (8) Constipation Is this a current diagnosis for this admission?: Yes (9) Upper gastrointestinal bleeding Is this a current diagnosis for this admission?: Yes (10) Anemia due to acute blood loss Is this a current diagnosis for this admission?: Yes - Additional Information Resuscitation Status: Do Not Resuscitate Home Medications: RX: Acetaminophen [Tylenol 325 mg Tablet] 650 mg PO Q4HP PRN 05/05/17 RX: Apixaban [Eliquis 5 mg Tablet] 5 mg PO Q12 05/05/17 RX: Aspirin [Aspirin 81 mg Chewable Tablet] 81 mg PO DAILY 05/05/17 RX: Atorvastatin Calcium [Lipitor 40 mg Tablet] 40 mg PO DAILY 05/05/17 RX: Furosemide [Lasix] 40 mg PO DAILY 05/05/17 RX: Polyethylene Glycol 3350 [Miralax Powder 17 gm/Packet] 17 gm PO DAILY RX: Potassium Chloride [K-Tab ER] 20 meq PO DAILY 05/05/17 RX: Tamsulosin HCl [Flomax 0.4 mg Cap.sr] 0.4 mg PO DAILY 05/05/17 RX: Acetaminophen [Tylenol Soln 325 mg/10.15 ml Udcup] 650 mg PO Q4HP PRN udc 05/31/17 RX: Amiodarone HCl [Cordarone 200 mg Tablet] 200 mg PO Q12 tablet 05/31/17 RX: Carvedilol [Coreg 12.5 mg Tablet] 12.5 mg PO Q12 #120 tablet 05/31/17 RX: Collagenase Clostridium Hist. [Santyl Ointment 30 gm] 1 applic TOP Q12 tube 05/31/17 RX: Ipratropium/Albuterol Sulfate [Duoneb 3 ml Ampul] 3 ml NEB RTQ6 vial.neb RX: Lansoprazole [Prevacid 30 mg Odt Tablet] 30 mg PO BID@0600,1700 tab. 05/31/17 RX: Lisinopril [Prinivil 10 mg Tablet] 10 mg PO Q12 tablet 05/31/17 History of Present Illness Admission Date/PCP: 05/05/17 14:45 History of Present Illness: Patient is a 76-year-old male with a history of coronary artery disease, chronic atrial fibrillation, he was admitted on 05/05/2017 when he presented with acute mental status change, septic shock, severe metabolic acidosis, respiratory failure requiring tracheal intubation. Patient was transfer from his home intubated on the field by EMS. Hospital Course Hospital Course: Patient hospital course was prolonged, He was admitted with septic shock, he is status post amputation of the left leg, he has an ulcer on the dorsum of the stump of the left leg it was obviously infected with greenish discharge suggesting Pseudomonas. The culture from the wound confirmed Pseudomonas. He was empirically treated with IV antibiotic including cefepime, vancomycin and Levaquin he was seen by pulmonary, he had episode of atrial fibrillation with rapid ventricular response because of this he was treated with amiodarone. He also had upper gastrointestinal hemorrhage thought to be due to stress ulcers from critical illness. He was subsequently extubated and presently stable the plan is to transfer patient to long-term for rehabilitation. Physical Exam Vital Signs: Temp Pulse Resp BP Pulse Ox 99.1 F 72 17 135/78 H 97 05/31/17 11:08 05/31/17 11:08 05/31/17 11:08 05/31/17 11:08 05/31/17 11:08 Intake & Output 05/30/17 05/31/17 06/01/17 06:59 06:59 06:59 Intake Total 1060 990 Balance 1060 990 Weight 68.6 kg 73.6 kg General appearance: PRESENT: no acute distress Eye exam: PRESENT: PERRLA Respiratory exam: PRESENT: clear to auscultation srikanth Cardiovascular exam: PRESENT: +S1, +S2 GI/Abdominal exam: PRESENT: soft - Left above-knee amputation Musculoskeletal exam: PRESENT: other Neurological exam: PRESENT: alert, CN II-XII grossly intact Results Laboratory Results: 05/31/17 05:30 05/31/17 06:20 05/31/17 05/31/17 05:30 06:20 WBC 6.7 RBC 3.50 L Hgb 9.6 L Hct 29.5 L MCV 84 MCH 27.4 MCHC 32.5 RDW 17.1 H Plt Count 221 Sodium 140.3 Potassium 3.8 Chloride 100 Carbon Dioxide 30 Anion Gap 10 BUN 9 Creatinine 0.75 Est GFR ( Amer) > 60 Est GFR (Non-Af Amer) > 60 Glucose 135 H Calcium 8.7 05/05/17 05/05/17 05/05/17 17:15 17:15 23:30 Creatine Kinase 123 160 CK-MB (CK-2) 3.17 Troponin I 0.312 NT-Pro-B Natriuret Pep 05/05/17 05/06/17 05/06/17 23:30 04:35 04:35 Creatine Kinase 207 H CK-MB (CK-2) 4.65 H 4.97 H Troponin I 0.432 0.375 NT-Pro-B Natriuret Pep 05/08/17 05/08/17 05/09/17 12:00 12:00 06:15 Creatine Kinase 186 H 197 H CK-MB (CK-2) 0.65 Troponin I 0.060 NT-Pro-B Natriuret Pep 05/09/17 05/13/17 05/13/17 06:15 10:50 10:50 Creatine Kinase 129 CK-MB (CK-2) 0.75 0.67 Troponin I 0.056 0.039 NT-Pro-B Natriuret Pep 58735 H 05/13/17 05/13/17 17:45 17:45 Creatine Kinase 95 CK-MB (CK-2) 1.34 Troponin I 0.083 NT-Pro-B Natriuret Pep Impressions: Head CT 05/05/17 12:43 IMPRESSION: MILD CHRONIC CHANGES OF ATROPHY AND MICROVASCULAR ISCHEMIA. NO ACUTE PROCESS. KUB X-Ray 05/05/17 13:59 IMPRESSION: NG tube appears to be in satisfactory position. Mild small-bowel distention as described. 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 There is no plain film evidence for bony involvement by osteomyelitis. Other findings as noted above Chest/Abdomen CTA 05/13/17 00:00 IMPRESSION: No CT angio evidence of acute pulmonary emboli or thoracic aortic dissection. Bilateral complete collapse of the lower lobes with small to moderate bilateral pleural effusions. Chest X-Ray 05/24/17 00:00 IMPRESSION: Likely left lower lobe pneumonia with pulmonary edema right pleural effusion. Transfer Plan - Time Spent with Patient Time spent with patient: Greater than 30 Minutes
[2017-05-31] MEDS: TAMSULOSIN HCL 0.4 MG CAP.SR.24H PO SCH (17:20)
[2017-05-31] MEDS: ATORVASTATIN CALCIUM 40 MG TABLET PO SCH (22:32)
[2017-06-01] MEDS: IPRATROPIUM/ALBUTEROL 0.5-2.5 MG/3 ML AMPUL NEB SCH ×4 (02:10→20:18)
[2017-06-01] MEDS: LANSOPRAZOLE 30 MG TAB.RAP.DR PO SCH ×2 (06:20→18:21)
[2017-06-01 07:13] LABS: ANION GAP 6 (5-19)
[2017-06-01 07:38] LABS: BLOOD UREA NITROGEN 7 mg/dL (7-20); CALCIUM 8.6 mg/dL (8.4-10.2); CARBON DIOXIDE 30 mmol/L (22-30); CHLORIDE 103 mmol/L (98-107); CREATININE RESULT 0.73 mg/dL (0.52-1.25); GLUCOSE 111 mg/dL (75-110); POTASSIUM 3.4 mmol/L (3.6-5.0); SODIUM 138.7 mmol/L (137-145)
[2017-06-01] MEDS: BISACODYL 5 MG TABEC PO SCH (09:32)
[2017-06-01] MEDS: COLLAGENASE CLOSTRIDIUM HIST. OINT 30 GM TOP SCH ×2 (09:40→22:58)
[2017-06-01] MEDS: AMIODARONE HCL 200 MG TABLET PO SCH ×2 (09:41→22:57)
[2017-06-01] MEDS: LISINOPRIL 10 MG TABLET PO SCH ×2 (09:41→22:57)
[2017-06-01] MEDS: ENOXAPARIN SODIUM INJ 30 MG/0.3 ML DISP.SYRIN SUBCUT SCH ×2 (09:41→22:57)
[2017-06-01] MEDS: CARVEDILOL 12.5 MG TABLET PO SCH ×2 (09:41→22:57)
[2017-06-01] MEDS: TAMSULOSIN HCL 0.4 MG CAP.SR.24H PO SCH (18:21)
[2017-06-01] MEDS: ATORVASTATIN CALCIUM 40 MG TABLET PO SCH (22:57)
[2017-06-02] MEDS: IPRATROPIUM/ALBUTEROL 0.5-2.5 MG/3 ML AMPUL NEB SCH ×4 (01:40→19:26)
[2017-06-02 05:57] LABS: HEMATOCRIT 27.8 % (37.9-51.0); HEMOGLOBIN 9.3 g/dL (13.5-17.0); HGB HCT DIFFERENCE 0.1; MEAN CORPUSCULAR HEMOGLOBIN 27.7 pg (27.0-33.4); MEAN CORPUSCULAR HGB CONC 33.4 g/dL (32.0-36.0); MEAN CORPUSCULAR VOLUME 83 fl (80-97); RED BLOOD COUNT 3.35 10^6/uL (4.35-5.55); RED CELL DISTRIBUTION WIDTH 17.1 % (11.5-14.0); WHITE BLOOD COUNT 9.2 10^3/uL (4.0-10.5)
[2017-06-02 06:04] LABS: ANION GAP 5 (5-19); BLOOD UREA NITROGEN 8 mg/dL (7-20); CALCIUM 8.5 mg/dL (8.4-10.2); CARBON DIOXIDE 33 mmol/L (22-30); CHLORIDE 102 mmol/L (98-107); CREATININE RESULT 0.75 mg/dL (0.52-1.25); GLUCOSE 101 mg/dL (75-110); POTASSIUM 3.5 mmol/L (3.6-5.0); SODIUM 139.8 mmol/L (137-145)
[2017-06-02] MEDS: LANSOPRAZOLE 30 MG TAB.RAP.DR PO SCH ×2 (06:26→17:40)
[2017-06-02] MEDS: LISINOPRIL 10 MG TABLET PO SCH ×2 (09:12→23:13)
[2017-06-02] MEDS: BISACODYL 5 MG TABEC PO SCH (09:12)
[2017-06-02] MEDS: COLLAGENASE CLOSTRIDIUM HIST. OINT 30 GM TOP SCH ×2 (09:13→23:12)
[2017-06-02] MEDS: AMIODARONE HCL 200 MG TABLET PO SCH ×2 (09:13→23:13)
[2017-06-02] MEDS: ENOXAPARIN SODIUM INJ 30 MG/0.3 ML DISP.SYRIN SUBCUT SCH ×2 (09:13→23:13)
[2017-06-02] MEDS: CARVEDILOL 12.5 MG TABLET PO SCH ×2 (09:13→23:13)
[2017-06-02] MEDS: TAMSULOSIN HCL 0.4 MG CAP.SR.24H PO SCH (17:40)
[2017-06-02] MEDS: ATORVASTATIN CALCIUM 40 MG TABLET PO SCH (23:13)
[2017-06-03] MEDS: IPRATROPIUM/ALBUTEROL 0.5-2.5 MG/3 ML AMPUL NEB SCH ×4 (02:13→19:33)
[2017-06-03] MEDS: LANSOPRAZOLE 30 MG TAB.RAP.DR PO SCH ×2 (06:40→18:14)
[2017-06-03 07:55] LABS: ANION GAP 8 (5-19); BLOOD UREA NITROGEN 8 mg/dL (7-20); CALCIUM 8.5 mg/dL (8.4-10.2); CARBON DIOXIDE 31 mmol/L (22-30); CHLORIDE 101 mmol/L (98-107); CREATININE RESULT 0.71 mg/dL (0.52-1.25); GLUCOSE 84 mg/dL (75-110); POTASSIUM 3.4 mmol/L (3.6-5.0); SODIUM 140.3 mmol/L (137-145)
[2017-06-03] MEDS: AMIODARONE HCL 200 MG TABLET PO SCH ×2 (10:45→22:48)
[2017-06-03] MEDS: ENOXAPARIN SODIUM INJ 30 MG/0.3 ML DISP.SYRIN SUBCUT SCH ×2 (10:45→22:47)
[2017-06-03] MEDS: CARVEDILOL 12.5 MG TABLET PO SCH ×2 (10:45→22:48)
[2017-06-03] MEDS: BISACODYL 5 MG TABEC PO SCH (10:45)
[2017-06-03] MEDS: LISINOPRIL 10 MG TABLET PO SCH ×2 (10:45→22:48)
[2017-06-03] MEDS: COLLAGENASE CLOSTRIDIUM HIST. OINT 30 GM TOP SCH ×2 (10:46→22:48)
[2017-06-03] MEDS: TAMSULOSIN HCL 0.4 MG CAP.SR.24H PO SCH (18:13)
[2017-06-03] MEDS: ATORVASTATIN CALCIUM 40 MG TABLET PO SCH (22:48)
[2017-06-04] MEDS: IPRATROPIUM/ALBUTEROL 0.5-2.5 MG/3 ML AMPUL NEB SCH ×4 (01:55→20:44)
[2017-06-04] MEDS: LANSOPRAZOLE 30 MG TAB.RAP.DR PO SCH ×2 (06:15→17:20)
[2017-06-04 06:29] LABS: ANION GAP 7 (5-19); BLOOD UREA NITROGEN 7 mg/dL (7-20); CALCIUM 8.3 mg/dL (8.4-10.2); CARBON DIOXIDE 32 mmol/L (22-30); CHLORIDE 102 mmol/L (98-107); CREATININE RESULT 0.74 mg/dL (0.52-1.25); GLUCOSE 94 mg/dL (75-110); SODIUM 140.5 mmol/L (137-145)
[2017-06-04] MEDS: POTASSIUM CHLORIDE 10 MEQ TABLET.SA PO SCH ×2 (08:12→11:16)
[2017-06-04] MEDS: AMIODARONE HCL 200 MG TABLET PO SCH ×2 (11:15→21:20)
[2017-06-04] MEDS: ENOXAPARIN SODIUM INJ 30 MG/0.3 ML DISP.SYRIN SUBCUT SCH ×2 (11:15→21:20)
[2017-06-04] MEDS: CARVEDILOL 12.5 MG TABLET PO SCH ×2 (11:16→21:20)
[2017-06-04] MEDS: LISINOPRIL 10 MG TABLET PO SCH ×2 (11:16→21:20)
[2017-06-04] MEDS: COLLAGENASE CLOSTRIDIUM HIST. OINT 30 GM TOP SCH ×2 (11:17→21:21)
[2017-06-04] MEDS: BISACODYL 5 MG TABEC PO SCH (11:17)
[2017-06-04] MEDS: TAMSULOSIN HCL 0.4 MG CAP.SR.24H PO SCH (17:20)
[2017-06-04] MEDS: ATORVASTATIN CALCIUM 40 MG TABLET PO SCH (21:21)
[2017-06-05] MEDS: IPRATROPIUM/ALBUTEROL 0.5-2.5 MG/3 ML AMPUL NEB SCH ×3 (02:12→14:00)
[2017-06-05 06:49] LABS: ANION GAP 10 (5-19); BLOOD UREA NITROGEN 9 mg/dL (7-20); CALCIUM 8.8 mg/dL (8.4-10.2); CARBON DIOXIDE 29 mmol/L (22-30); CHLORIDE 101 mmol/L (98-107); CREATININE RESULT 0.63 mg/dL (0.52-1.25); GLUCOSE 132 mg/dL (75-110); POTASSIUM 4.5 mmol/L (3.6-5.0); SODIUM 140.1 mmol/L (137-145)
[2017-06-05] MEDS: ENOXAPARIN SODIUM INJ 30 MG/0.3 ML DISP.SYRIN SUBCUT SCH (09:43)
[2017-06-05] MEDS: AMIODARONE HCL 200 MG TABLET PO SCH (09:43)
[2017-06-05] MEDS: BISACODYL 5 MG TABEC PO SCH (09:43)
[2017-06-05] MEDS: LISINOPRIL 10 MG TABLET PO SCH (09:43)
[2017-06-05] MEDS: CARVEDILOL 12.5 MG TABLET PO SCH (09:44)
[2017-06-05] MEDS: COLLAGENASE CLOSTRIDIUM HIST. OINT 30 GM TOP SCH (09:44)
[2017-06-05 12:42] VITALS: BP 108/70
== END 2017-06-05 14:15 | DRG 853 ==
LOC: ER 12:41 → UNDOADMIN 14:38 → EH 14:38 → ICU 16:35 → 5 05-21 02:51
PROVIDERS: ADMIT Internal Medicine; ATTEND Internal Medicine
PROC: 0BH17EZ Insertion of Endotracheal Airway into Trachea, Via Natural or Artificial Opening (ICD-10-PCS; 2017-05-05)
PROC: 5A1955Z Respiratory Ventilation, Greater than 96 Consecutive Hours (ICD-10-PCS; 2017-05-05)
PROC: 02HV33Z Insertion of Infusion Device into Superior Vena Cava, Percutaneous Approach (ICD-10-PCS; 2017-05-05)
PROC: 0HBJXZZ Excision of Left Upper Leg Skin, External Approach (ICD-10-PCS; 2017-05-06)
PROC: 0JBM0ZZ Excision of Left Upper Leg Subcutaneous Tissue and Fascia, Open Approach (ICD-10-PCS; principal; 2017-05-08)
PROC: 05HM33Z Insertion of Infusion Device into Right Internal Jugular Vein, Percutaneous Approach (ICD-10-PCS; 2017-05-09)
DX: A41.52 Sepsis due to Pseudomonas (principal); R65.21 Severe sepsis with septic shock; J96.02 Acute respiratory failure with hypercapnia; J96.01 Acute respiratory failure with hypoxia; J18.9 Pneumonia, unspecified organism; T87.44 Infection of amputation stump, left lower extremity; K92.2 Gastrointestinal hemorrhage, unspecified; D62 Acute posthemorrhagic anemia; I47.2 Ventricular tachycardia; I42.9 Cardiomyopathy, unspecified; B96.5 Pseudomonas (aeruginosa) (mallei) (pseudomallei) as the cause of diseases classified elsewhere; Z66 Do not resuscitate; I48.2 Chronic atrial fibrillation; K59.00 Constipation, unspecified; I25.10 Atherosclerotic heart disease of native coronary artery without angina pectoris; I10 Essential (primary) hypertension; I73.9 Peripheral vascular disease, unspecified; E78.5 Hyperlipidemia, unspecified; Z79.01 Long term (current) use of anticoagulants; Z79.82 Long term (current) use of aspirin; Z79.899 Other long term (current) drug therapy; I25.2 Old myocardial infarction; Z89.612 Acquired absence of left leg above knee; Z87.891 Personal history of nicotine dependence; Z95.810 Presence of automatic (implantable) cardiac defibrillator
CPT/HCPCS: 36415; 36430; 36600; 51702; 70450; 71010; 71020; 71275; 74000; 80048; 80053; 80202; 81001; 82140; 82150; 82271; 82272; 82550; 82553; 82565; 82803; 83036; 83605; 83690; 83735; 83880; 84100; 84132; 84439; 84443; 84484; 85025; 85027; 85610; 85730; 86850; 86900; 86901; 86920; 87040; 87070; 87075; 87077; 87086; 87186; 87205; 87493; 93005; 93010; 93306; 94002; 94003; 94640; 94660; 94799; 95819; 96365; 99291; C1751; G8978-GP; G8979-GP; G8996-GN; G8997-GN; J0282; J0696; J1100; J1644; J1650; J1940; J2060; J2543; J2704; J2997; J3370; J3475; J3480; J3490; J7030; J7060; J7620; P9016

== ENCOUNTER 2017-10-29 11:25 | Inpatient (IN) | payer MEDICARE, MEDICAID ==
[2017-10-29] MEDS ORDERED: ETOMIDATE INJ/PF 20 MG/10 ML SDV IV ONE ×2 (11:36→12:25)
[2017-10-29] MEDS ORDERED: SUCCINYLCHOLINE CHLORIDE INJ 200 MG/10 ML VIAL IV ONE (11:40)
[2017-10-29 11:53] LABS: ABSOLUTE BASOPHILS # (AUTO) 0.1 10^3/uL (0.0-0.2); ABSOLUTE EOSINOPHILS # (AUTO) 0.1 10^3/uL (0.0-0.6); ABSOLUTE LYMPHOCYTES (AUTO) 1.6 10^3/uL (0.5-4.7); ABSOLUTE MONOCYTES (AUTO) 0.8 10^3/uL (0.1-1.4); BASOPHILS % (AUTO) 0.7 % (0-2); EOSINOPHILS % (AUTO) 0.4 % (0-6); HEMATOCRIT 39.7 % (37.9-51.0); HEMOGLOBIN 12.7 g/dL (13.5-17.0); LYMPHOCYTES % (AUTO) 11.5 % (13-45); MEAN CORPUSCULAR HEMOGLOBIN 27.8 pg (27.0-33.4); MEAN CORPUSCULAR HGB CONC 31.8 g/dL (32.0-36.0); MEAN CORPUSCULAR VOLUME 88 fl (80-97); PLATELET COUNT 220 10^3/uL (150-450); RED BLOOD COUNT 4.54 10^6/uL (4.35-5.55); RED CELL DISTRIBUTION WIDTH 18.7 % (11.5-14.0); SEGMENTED NEUTROPHILS % (AUTO) 81.4 % (42-78); TOTAL CELLS COUNTED % (AUTO) 100 %; WHITE BLOOD COUNT 13.5 10^3/uL (4.0-10.5)
--- NOTE | 2017-10-29 11:53 | ER Document Report ---
ED General - General Stated Complaint: UNRESPONSIVE Time Seen by Provider: 10/29/17 11:37 Mode of Arrival: Medic Information source: Emergency Med Personnel, [facility] Records TRAVEL OUTSIDE OF THE [place] IN LAST 30 DAYS: No - HPI Patient complains to provider of: unresponsive Onset: Other - last seen at 0200 am alert and oriented as per pt.'s nephew Notes: 76 year-old -Citizen Of [place] male was found down and unresponsive by his nephew prior to arrival to the emergency department. It was last seen in his usual state of health at 2 AM by same nephew. Paramedics arrived patient had been picked up and placed on the couch. He was unresponsive with respiratory rate of approximately 8. In route to the hospital patient had a tonic-clonic seizure lasting 1 minute. He was given 2.5 mg of Versed intranasally. - Related Data Allergies/Adverse Reactions: No Known Allergies Allergy (Verified 02/07/17 12:26) Past Medical History - General Information source: [facility] Records Cannot obtain history due to: Altered mental status - Social History Smoking Status: Former Smoker Drug Abuse: None Lives with: Family Family History: Reviewed & Not Pertinent, CAD, Hypertension - Past Medical History Cardiac Medical History: Reports: Hx Atrial Fibrillation, Hx Heart Attack, Hx Hypercholesterolemia, Hx Hypertension, Hx Peripheral Vascular Disease Pulmonary Medical History: Reports: Other - Former smoker in the remote past. EENT Medical History: Reports: None Neurological Medical History: Reports: None Renal/ Medical History: Denies: Hx Peritoneal Dialysis GI Medical History: Reports: None Past Surgical History: Reports: Hx Cardiac Surgery - pacemaker, Hx Vascular Surgery - Left AKA, Other - Status post amputation left lower extremity. - Immunizations History of Influenza Vaccine for 06/2017 - 11/2017 Season: Unknown History of Pneumococcal Vaccine: Unknown Review of Systems - Review of Systems -: Yes ROS unobtainable due to patient's medical condition Physical Exam - Vital signs Vitals: Pulse Ox 98 10/29/17 11:25 - Notes Notes: PHYSICAL EXAMINATION: GENERAL: Thin -Citizen Of [place] male that is currently unresponsive with minimal spontaneous respirations brought in by EMS and being bagged HEAD: Atraumatic, normocephalic. EYES: Patient has right lateral deviation ENT: Nares patent, oropharynx clear without exudates. Moist mucous membranes. Her dentition NECK: Lymphadenopathy or masses. LUNGS: Breath sounds with rhonchi and bibasilar crackles. HEART: Regular rate and rhythm without murmurs ABDOMEN: Soft, nondistended abdomen. No masses appreciated. Musculoskeletal: Left AKA NEUROLOGICAL: PSYCH: Normal mood, normal affect. SKIN: Warm, Dry, normal turgor, no rashes or lesions noted. Course - Re-evaluation Re-evalutation: 10/29/17 13:38 We have made continual attempts to get in touch with the patient's son. He does work here as a security controls assessor. We are thinking perhaps he is in [place]. Continued attempts being made. I did talk to Dr. Leal. He states he will admit the patient if the family gives consent. We do not have pulmonary here at this time. 10/29/17 14:04 I spoke with the patient's son who is bedside now. His accompanied him and she is a nurse. Spine to the patient's son and it appears the patient has pneumonia and is getting treated for such. I stated that we do not have pulmonary here and that he would have to decide if he want the patient transferred. I did ask about CODE STATUS he informed me that patient has DNR status but he thinks that sister has the paperwork. He states last time that the patient was in the hospital he was resuscitated when he was actually DNR. He does not want this to happen again. He did state that he is in charge of making medical decisions when the patient cannot do so. He did state you are the patient to be DNR and paperwork was filled out by me and signed. - Vital Signs Vital signs: Temp Pulse Resp BP Pulse Ox 100 10/29/17 11:30 - Laboratory Result Diagrams: 10/29/17 11:31 10/29/17 11:31 Laboratory results interpreted by me: 10/29/17 10/29/17 10/29/17 11:31 11:31 11:31 WBC 13.5 H Hgb 12.7 L MCHC 31.8 L RDW 18.7 H Seg Neutrophils % 81.4 H Lymphocytes % 11.5 L Absolute Neutrophils 11.0 H VBG pH Chloride 110 H Carbon Dioxide 16 L Creatinine 1.76 H Est GFR ( Amer) 46 L Est GFR (Non-Af Amer) 38 L Glucose 240 H Lactic Acid 9.6 H Magnesium 1.5 L Urine Protein Urine Glucose (UA) Urine Blood 10/29/17 10/29/17 12:40 13:07 WBC Hgb MCHC RDW Seg Neutrophils % Lymphocytes % Absolute Neutrophils VBG pH 7.24 L Chloride Carbon Dioxide Creatinine Est GFR ( Amer) Est GFR (Non-Af Amer) Glucose Lactic Acid Magnesium Urine Protein 100 H Urine Glucose (UA) 50 H Urine Blood SMALL H - Diagnostic Test Radiology reviewed: Image reviewed, Reports reviewed Radiology results interpreted by me: 10/29/17 12:27 LLL inflitrate - EKG Interpretation by Me EKG shows normal: Sinus rhythm - 68 Rate: Normal When compared to previous EKG there are: No significant change Procedures - Intubation Orotracheal Airway evaluation: Normal anatomy Medications: Etomidate, Succinylcholine Intubation method: Orotracheal Blade type: Hola Blade size: 4 ETT size: 7.5 ETT secured at: Gums ETT secured at (cm): 26 Breath Sounds after Intubation: Equal End tidal CO2 confirmed: Yes Ventilator settings: SIMV Tidal volume: 500 FiO2: 40 Respirations: 12 PEEP: 5 Post Intubation Xray: Yes - LL PNA Intubation Complications: No complications Discharge - Discharge Clinical Impression: Pneumonia, Ventilator dependence, Acute respiratory failure, Hypomagnesemia, DNR (do not resuscitate) discussion, DNR (do not resuscitate) Condition: Serious Disposition: ADMITTED INPATIENT Admitting Provider: [facility] Admitted: ICU Referrals: CAYETANO RAY MD [Primary Care Provider] - Follow up as needed
[2017-10-29 11:57] LABS: INTERNATIONAL RATION (INR) 1.11; PROTHROMBIN TIME 15.1 SEC (11.4-15.4)
[2017-10-29 11:58] LABS: PARTIAL THROMBOPLASTIN TIME 26.8 SEC (23.5-35.8)
[2017-10-29] MEDS ORDERED: ROCURONIUM BROMIDE INJ 50 MG/5 ML VIAL IV ONE ×2 (12:01→15:33)
--- NOTE | 2017-10-29 12:01 | RADIOLOGY REPORT (SQ) ---
EXAM DESCRIPTION: CHEST SINGLE VIEW COMPLETED DATE/TIME: 10/29/2017 11:54 am REASON FOR STUDY: ETT COMPARISON: 05/24/2017 NUMBER OF VIEWS: One view. TECHNIQUE: Single frontal radiographic image of the chest acquired. LIMITATIONS: None. FINDINGS: LUNGS AND PLEURA: Segmental airspace disease in the left lower lobe. No pneumothorax. MEDIASTINUM AND HEART: Stable heart size and mediastinal structures. SUPPORT DEVICES: Unchanged position of left-sided pacemaker. Endotracheal tube tip about 2 cm above the johnny. Nasogastric tube in the stomach. BONY STRUCTURES: No acute findings. HARDWARE: None. OTHER: No other significant finding. IMPRESSION: Left lower lobe pneumonia status post intubation. No pneumothorax.
[2017-10-29 12:15] LABS: ALANINE AMINOTRANSFERASE 43 U/L (21-72); ALBUMIN 3.9 g/dL (3.5-5.0); ALCOHOL < 10 mg/dL (NONE DETECTED); ALKALINE PHOSPHATASE 103 U/L (38-126); ANION GAP 19 (5-19); ASPARTATE AMINO TRANSFERASE 39 U/L (17-59); BILIRUBIN,DIRECT 0.3 mg/dL (0.0-0.4); BILIRUBIN,TOTAL 0.3 mg/dL (0.2-1.3); BLOOD UREA NITROGEN 20 mg/dL (7-20); CALCIUM 8.9 mg/dL (8.4-10.2); CARBON DIOXIDE 16 mmol/L (22-30); CHLORIDE 110 mmol/L (98-107); CREATINE KINASE 78 U/L (55-170); GLUCOSE 240 mg/dL (75-110); MAGNESIUM 1.5 mg/dL (1.6-2.3); POTASSIUM 4.3 mmol/L (3.6-5.0); SODIUM 144.7 mmol/L (137-145); TOTAL PROTEIN 7.2 g/dL (6.3-8.2)
[2017-10-29] MEDS ORDERED: CEFTRIAXONE 1 GM/D5W RTU 1 GM/50 ML RTUPB IV ONE (12:19)
[2017-10-29] MEDS ORDERED: NORMAL SALINE 1000 ML 1,000 ML IV ONE ×2 (12:26→14:47)
[2017-10-29] MEDS ORDERED: CEFTRIAXONE INJ 1000 MG VIAL IV ONE (12:30)
--- NOTE | 2017-10-29 12:45 | RADIOLOGY REPORT (SQ) ---
EXAM DESCRIPTION: CT HEAD WITHOUT COMPLETED DATE/TIME: 10/29/2017 12:16 pm REASON FOR STUDY: unresponsive COMPARISON: CT brain 05/05/2017, 02/02/2017 TECHNIQUE: Axial images acquired through the brain without intravenous contrast. Images reviewed wi th bone, brain and subdural windows. Images stored on PACS. All CT scanners at this facility use dose modulation, iterative reconstruction, and/or weight based d osing when appropriate to reduce radiation dose to as low as reasonably achievable (ALARA). [facility]: Dose Right [facility]: CareDose [facility]: Dose Right [facility]: Teradose 4D [facility]: [employer] RADIATION DOSE: CT Rad equipment meets quality standard of care and radiation dose reduction techniq ues were employed. CTDIvol: 64.6 mGy. DLP: 1163 mGy-cm. mGy. LIMITATIONS: None. FINDINGS: VENTRICLES: Normal size and contour. CEREBRUM: Chronic appearing infarcts are present in the left frontal parasagittal region (axial image 26) and left posterior frontal perisylvian region (axial image 20-22). Old chronic lacunar infarct r ight caudate image 19. . No CT evidence of acute intracranial hemorrhage, acute large territory isch emic change, mass effect, or midline shift. CEREBELLUM: No masses. No acute hemorrhage. No evidence for acute infarction. Old left inferior ce rebellar hemisphere infarct axial image 7. EXTRAAXIAL SPACES: No fluid collections. No masses. ORBITS AND GLOBE: No intra- or extraconal masses. Normal contour of globe without masses. CALVARIUM: No fracture. PARANASAL SINUSES: No fluid or mucosal thickening. SOFT TISSUES: No mass or hematoma. OTHER: No other significant finding. IMPRESSION: Multiple old infarcts. No acute findings. EVIDENCE OF ACUTE STROKE: NO. COMMENT: Quality ID # [id number]: Final reports with documentation of one or more dose reduction techniques (e.g., Automated exposure control, adjustment of the mA and/or kV according to patient size, use of iterative reconstruction technique) TECHNICAL DOCUMENTATION: JOB ID: [id number]- All Rights Reserved
[2017-10-29] MEDS: PROPOFOL 100 ML IV PRN ×2 (13:01→22:25)
[2017-10-29 13:20] LABS: APPEARANCE,URINE CLOUDY; BILIRUBIN,URINE NEGATIVE (NEGATIVE); COLOR,URINE YELLOW; GLUCOSE, URINE 50 mg/dL (NEGATIVE); KETONES,URINE NEGATIVE (NEGATIVE); LEUKOCYTE ESTERASE,URINE NEGATIVE (NEGATIVE); NITRITE,URINE NEGATIVE (NEGATIVE); PROTEIN,URINE 100 mg/dL (NEGATIVE); URINE SPECIFIC GRAVITY 1.013; UROBILINOGEN,URINE NEGATIVE mg/dL (<2.0)
[2017-10-29] MEDS: MAGNESIUM SULFATE/D5W 1 GM/100 ML RTUPB IV SCH ×2 (13:24→14:43)
[2017-10-29 13:31] LABS: URINE AMPHETAMINES SCREEN NEGATIVE; URINE BARBITURATES SCREEN NEGATIVE; URINE BENZODIAZEPINES SCREEN UNCONFIRMED POSITIVE; URINE COCAINE SCREEN UNCONFIRMED POSITIVE; URINE MARIJUANA (THC) SCREEN UNCONFIRMED POSITIVE; URINE METHADONE SCREEN NEGATIVE; URINE PHENCYCLIDINE SCREEN NEGATIVE
[2017-10-29] MEDS ORDERED: NORMAL SALINE 500 ML IV ONE (13:36)
[2017-10-29 13:44] LABS: VENOUS BLOOD BASE EXCESS -2.4 mmol/L; VENOUS BLOOD HCO3 26.4 mmol/L (20-32); VENOUS BLOOD PCO2 62.8 mmHg (35-63); VENOUS BLOOD PH 7.24 (7.30-7.42)
[2017-10-29] MEDS ORDERED: ACETAMINOPHEN 650 MG SUPP.RECT PR PRN (14:53)
[2017-10-29] MEDS ORDERED: SUCCINYLCHOLINE CHLORIDE INJ 200 MG/10 ML VIAL ONE (15:33)
--- NOTE | 2017-10-29 16:03 | EKG REPORT ---
SEVERITY:- ABNORMAL ECG - SINUS RHYTHM LOW VOLTAGE THROUGHOUT NONSPECIFIC T ABNORMALITIES, LATERAL LEADS CONSIDER OLD ANTEROSEPTAL [place]. : Confirmed by: Alex Hurtado MD 29-Oct-2017 16:02:34
--- NOTE | 2017-10-29 16:03 | HISTORY AND PHYSICAL E ---
History and Physical NAME: MOHAN GILLIS : 1940 AGE: 76Y ADMITTED: 10/29/2017 ROOM: ED70 CHIEF COMPLAINT: Unresponsive. HISTORY OF PRESENT ILLNESS: This is a 76-year-old patient of Dr. Molina with a significant history of coronary artery disease, history of recent septic shock and admission to the hospital, and multiple other comorbidities, brought to the emergency department unresponsive by his nephew. Prior to arrival to the emergency department, he was in less than his usual state of health at 2:00 a.m. by the same nephew. Paramedics arrived. The patient had been picked up and placed on the couch. He was unresponsive with respiratory rate of approximately 8. En route to the hospital, patient had tonic-clonic seizures lasting about 1 minute. He was given 2 mg Versed intravenously. In the emergency department, patient was initially intubated, and the patient was found to be septic with pneumonia. Very extensive discussions with the patient's son, Mr. Gillis, and patient is currently a DNR. The patient is at this point kept in the ICU for the IV antibiotics and further evaluation. PAST MEDICAL HISTORY: History of coronary artery disease. History of hypertension. History of hyperlipidemia. History of septic shock from wound. History of atrial fibrillation. History of peripheral vascular disease. PAST SURGICAL HISTORY: Vascular surgery. Status post amputation of the left lower extremity. SOCIAL HISTORY: Patient is using marijuana. ALLERGIES: No known drug allergies. REVIEW OF SYSTEMS: Unable to obtain. Otherwise as above from nursing staff. PHYSICAL EXAMINATION: VITAL SIGNS: Patient's O2 sat: Currently intubated respirations. Pulse is 65. Blood pressure is 100/80. GENERAL: Patient is currently lying in a bed, currently intubated. HEAD AND NECK: Normocephalic. PERRL. LUNGS: No wheezing. No rales. HEART: S1 and S2 are present. ABDOMEN: Soft. Bowel sounds present. EXTREMITIES: No edema on the right. Left-sided amputation is present. LABORATORY/DIAGNOSTIC STUDIES: Head CT is multiple old infarcts, no acute findings otherwise. Patient's chest x-ray shows left lower lobe pneumonia, status post intubation, no pneumothorax. Patient's other lab: WBC is 13.5. Hemoglobin is 12.7. Platelets 220. Sodium is 144. Potassium is 4.3. BUN is 20. Creatinine is 1.76. CO2 is 16. INR was 1.11. The pH was 7.24. PCO2 was 62.8. Urine: Blood is positive. Protein is positive. Patient's urine drug screen confirmed benzodiazepine, confirmed cocaine, and confirmed marijuana. Alcohol is less than 10. ASSESSMENT AND PLAN: 1. ACUTE RESPIRATORY FAILURE STATUS POST INTUBATION. 2. PNEUMONIA. 3. SEPTICEMIA. 4. CORONARY ARTERY DISEASE. 5. HYPERTENSION. 6. PERIPHERAL VASCULAR DISEASE. The plan is to admit the patient in the ICU, start the patient on IV antibiotics, and consult Pulmonary and consult Cardiology. Continue to monitor the patient. Patient has multiple other comorbidities. Very extensive discussion with the patient's son. The patient is currently DNR as expressed. Patient has otherwise poor prognosis. More than 60 minutes spent examining the patient in the emergency department. Discussed with the ER physician. I hope the patient continues to improve. DICTATING PHYSICIAN: IVAN LANDRUM M.D. [id number] Y#: [id number] ID: [id number] JOB#: [id number] ACCT: [id number] cc:Karlo HODGE M.D. >
--- NOTE | 2017-10-29 17:21 | RADIOLOGY REPORT (SQ) ---
EXAM DESCRIPTION: KUB/ABDOMEN (SINGLE VIEW) COMPLETED DATE/TIME: 10/29/2017 4:59 pm REASON FOR STUDY: NGT placement COMPARISON: 05/05/2017. NUMBER OF VIEWS: One view. TECHNIQUE: Supine radiographic image of the abdomen acquired. LIMITATIONS: None. FINDINGS: BOWEL GAS PATTERN: Normal bowel gas pattern. No dilated loops. CALCIFICATIONS: No suspicious calcifications. SOFT TISSUES: No gross mass or suggestion of organomegaly. HARDWARE: Tip of the nasogastric tube in the stomach. BONES: No acute fracture. No worrisome bone lesions. OTHER: No other significant finding. IMPRESSION: TIP OF THE NASOGASTRIC TUBE IN THE STOMACH. NO RADIOGRAPHIC EVIDENCE FOR ACUTE ABDOMINA L DISEASE. TECHNICAL DOCUMENTATION: JOB ID: [id number] [employer]- All Rights Reserved
[2017-10-29] MEDS ORDERED: INFLUENZA ADLT QUAD (36MOS+) 2017-18 VAC 0.5 ML SYR IM PRN (17:25)
[2017-10-29] MEDS: NORMAL SALINE 1000 ML 1,000 ML IV PRN (18:07)
[2017-10-29 22:04] LABS: CREATINE KINASE MB 2.53 ng/mL (<4.55)
[2017-10-29 22:08] LABS: TROPONIN I 0.239 ng/mL
[2017-10-29] MEDS: FAMOTIDINE INJ/PF 20 MG/2 ML SDV IV SCH (22:25)
[2017-10-29] MEDS ORDERED: CEFEPIME 1 GM/D5W RTU 1 GM/50 ML RTUPB IV ONE (22:31)
[2017-10-29] MEDS: CEFEPIME 1 GM/D5W RTU 1 GM/50 ML RTUPB IV SCH (22:46)
[2017-10-29] MEDS ORDERED: MORPHINE SULFATE 10 MG/ML INJ IV PRN (22:56)
[2017-10-30 03:30] LABS: ABSOLUTE BASOPHILS # (AUTO) 0.1 10^3/uL (0.0-0.2); ABSOLUTE LYMPHOCYTES (AUTO) 1.5 10^3/uL (0.5-4.7); ABSOLUTE MONOCYTES (AUTO) 1.4 10^3/uL (0.1-1.4); ABSOLUTE NEUT (AUTO) 8.5 10^3/uL (1.7-8.2); BASOPHILS % (AUTO) 0.5 % (0-2); EOSINOPHILS % (AUTO) 0.4 % (0-6); HEMATOCRIT 34.6 % (37.9-51.0); HEMOGLOBIN 10.9 g/dL (13.5-17.0); LYMPHOCYTES % (AUTO) 13.1 % (13-45); MEAN CORPUSCULAR HEMOGLOBIN 27.3 pg (27.0-33.4); MEAN CORPUSCULAR HGB CONC 31.5 g/dL (32.0-36.0); MEAN CORPUSCULAR VOLUME 87 fl (80-97); MONOCYTES % (AUTO) 11.8 % (3-13); PLATELET COUNT 168 10^3/uL (150-450); RED BLOOD COUNT 3.99 10^6/uL (4.35-5.55); RED CELL DISTRIBUTION WIDTH 18.6 % (11.5-14.0); SEGMENTED NEUTROPHILS % (AUTO) 74.2 % (42-78); TOTAL CELLS COUNTED % (AUTO) 100 %; WHITE BLOOD COUNT 11.5 10^3/uL (4.0-10.5)
[2017-10-30 03:42] LABS: ALANINE AMINOTRANSFERASE 52 U/L (21-72); ALBUMIN 2.9 g/dL (3.5-5.0); ALKALINE PHOSPHATASE 85 U/L (38-126); ANION GAP 8 (5-19); ASPARTATE AMINO TRANSFERASE 31 U/L (17-59); BILIRUBIN,DIRECT 0.4 mg/dL (0.0-0.4); BILIRUBIN,TOTAL 0.4 mg/dL (0.2-1.3); BLOOD UREA NITROGEN 15 mg/dL (7-20); CALCIUM 8.7 mg/dL (8.4-10.2); CARBON DIOXIDE 23 mmol/L (22-30); CHLORIDE 114 mmol/L (98-107); GLUCOSE 89 mg/dL (75-110); MAGNESIUM 2.1 mg/dL (1.6-2.3); POTASSIUM 4.1 mmol/L (3.6-5.0); SODIUM 144.9 mmol/L (137-145); TOTAL PROTEIN 5.6 g/dL (6.3-8.2)
[2017-10-30 03:54] LABS: CREATINE KINASE MB 2.77 ng/mL (<4.55)
[2017-10-30 03:59] LABS: TROPONIN I 0.214 ng/mL
[2017-10-30] MEDS: PROPOFOL 100 ML IV PRN ×3 (05:09→22:08)
[2017-10-30 06:26] LABS: ARTERIAL BLOOD BASE EXCESS -0.8 mmol/L; ARTERIAL BLOOD H2CO3 1.04 mmol/L (1.05-1.35); ARTERIAL BLOOD O2 SATURATION 98.7 % (94-98); ARTERIAL BLOOD PCO2 34.7 mmHg (35-45); ARTERIAL BLOOD PH 7.44 (7.35-7.45); ARTERIAL BLOOD PO2 127.1 mmHg (80-100); ARTERIAL BLOOD TOTAL CO2 24.1 mmol/L (23-27)
[2017-10-30 06:27] LABS: ARTERIAL BLOOD FIO2 30%
[2017-10-30] MEDS: NORMAL SALINE 1000 ML 1,000 ML IV PRN (08:49)
[2017-10-30] MEDS: ENOXAPARIN SODIUM INJ 30 MG/0.3 ML DISP.SYRIN SUBCUT SCH (09:40)
[2017-10-30] MEDS: FAMOTIDINE INJ/PF 20 MG/2 ML SDV IV SCH ×2 (09:40→22:07)
[2017-10-30] MEDS: CEFEPIME 1 GM/D5W RTU 1 GM/50 ML RTUPB IV SCH ×2 (09:42→22:08)
--- NOTE | 2017-10-30 09:51 | EKG REPORT ---
SEVERITY:- ABNORMAL ECG - ATRIAL-PACED RHYTHM ANTERIOR INFARCT, AGE INDETERMINATE NONSPECIFIC T ABNORMALITIES, INFERIOR LEADS PROLONGED QT INTERVAL : Confirmed by: Wilder Rizzo 30-Oct-2017 09:50:52
[2017-10-30] MEDS ORDERED: AZITHROMYCIN 500 MG in DEXTROSE 5%-WATER 250 ML IV SCH (10:00)
[2017-10-30] MEDS ORDERED: AZITHROMYCIN INJ 500 MG VIAL IV SCH (10:00)
--- NOTE | 2017-10-30 13:02 | PDOC CONSULTATION ---
Consultation Consult Date: 10/30/17 Attending physician:: IVAN LANDRUM Consult reason:: Positive troponin I History of Present Illness Admission Date/PCP: 10/29/17 15:15 CAYETANO RAY MD Patient complains of: Intubated and sedated History of Present Illness: 76 year-old -[place] male was found down and unresponsive by his nephew prior to arrival to the emergency department. It was last seen in his usual state of health at 2 AM by same nephew. Paramedics arrived patient had been picked up and placed on the couch. He was unresponsive with respiratory rate of approximately 8. In route to the hospital patient had a tonic-clonic seizure lasting 1 minute. He was given 2.5 mg of Versed intranasally. Subsequently patient was intubated, sedated and moved to the unit. Subsequently patient noted to have positive troponin I. His blood pressure and heart rate has been stable. Have been asked to evaluate patient because of positive troponin I. Patient cannot give any history. No family members immediately available to obtain history. Past Medical History Cardiac Medical History: Reports: Atrial Fibrillation, Myocardial Infarction, Hyperlipidema, Hypertension, Peripheral Vascular Disease Pulmonary Medical History: Reports: Other - Former smoker in the remote past. EENT Medical History: Reports: None Neurological Medical History: Reports: None GI Medical History: Reports: None Psychiatric Medical History: Reports: Depression Past Surgical History Past Surgical History: Reports: Vascular Surgery - Left AKA, Other - Status post amputation left lower extremity. Social History Information Source: [facility] Records Lives with: Family Smoking Status: Current Every Day Smoker Drugs: Marijuana - Advance Directive Resuscitation Status: Do Not Resuscitate Family History Family History: CAD, Hypertension Parental Family History Reviewed: Yes Children Family History Reviewed: Yes Sibling(s) Family History Reviewed.: Yes Medication/Allergy Home Medications: Amiodarone HCl [Cordarone 200 mg Tablet] 200 mg PO Q12 10/29/17 Apixaban [Eliquis 5 mg Tablet] 5 mg PO Q12 10/29/17 Aspirin [Aspirin 81 mg Chewable Tablet] 81 mg PO DAILY 10/29/17 Atorvastatin Calcium [Lipitor 40 mg Tablet] 40 mg PO DAILY 10/29/17 Carvedilol [Coreg 12.5 mg Tablet] 12.5 mg PO Q12 10/29/17 Doxycycline Hyclate [Vibramycin] 100 mg PO Q12 10/29/17 Furosemide [Lasix 40 mg Tablet] 40 mg PO DAILY 10/29/17 Lansoprazole [Prevacid] 30 mg PO DAILY 10/29/17 Potassium Chloride [Klor-Con 10 Meq Tablet.sa] 20 meq PO DAILY 10/29/17 Silver Sulfadiazine [Ssd] 25 gm TP DAILY 10/29/17 Tamsulosin HCl [Flomax 0.4 mg Cap.sr] 0.4 mg PO DAILY 10/29/17 Allergies/Adverse Reactions: No Known Allergies Allergy (Verified 02/07/17 12:26) Review of Systems ROS unobtainable: Due to endotracheal tube Review of Systems: System review cannot be obtained because of patient is intubated and sedated. Physical Exam Vital Signs: Temp Pulse Resp BP Pulse Ox 99.7 F 60 12 144/86 H 100 10/30/17 12:30 10/30/17 12:00 10/30/17 12:30 10/30/17 12:19 10/30/17 12:30 Intake & Output 10/29/17 10/30/17 10/31/17 06:59 06:59 06:59 Intake Total 962 Output Total 850 345 Balance 112 -345 Weight 65.8 kg Exam: GENERAL: well-nourished and in no acute distress. Patient is intubated and sedated. Orientation cannot be checked HEAD: Atraumatic, normocephalic. EYES: Pupils equal round and reactive to light, extraocular movements could not be checked, sclera anicteric, conjunctiva are normal. ENT: TMs normal, nares patent, oropharynx clear without exudates. Moist mucous membranes. No oral ulcerations or bleeding gums noted NECK: supple without lymphadenopathy or JVD. Trachea is central. No cervical or axillary lymphadenopathy noted. Carotids are 2+ LUNGS: Breath sounds mostly clear to auscultation patient is noted to have bibasal crackles at the extreme bases CHEST: Palpation of the chest wall shows no significant chest wall tenderness or abnormalities. 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 ABDOMEN: Soft, no significant tenderness appreciated, normoactive bowel sounds. No guarding, no rebound. No rigidity noted . No masses appreciated. EXTREMITIES: Pedal pulses are 1-2+, no calf tenderness noted, 1+ pedal edema noted. No clubbing or cyanosis. Patient has above-knee amputation of the left lower extremity. NEUROLOGICAL: The patient cannot participate in the neurological exam but no facial asymmetry noted. Extremities slightly hypotonic PSYCH: This cannot be evaluated. Patient cannot participate. SKIN: No significant ecchymosis, rash, or signs of pruritus noted. MUSCULOSKELETAL EXAM: No significant joint swelling noted. Patient cannot participate in musculoskeletal exam Results Laboratory Results: 10/30/17 03:13 10/30/17 03:13 10/29/17 10/29/17 10/30/17 15:19 19:00 03:13 WBC 11.5 H RBC 3.99 L Hgb 10.9 L Hct 34.6 L MCV 87 MCH 27.3 MCHC 31.5 L RDW 18.6 H Plt Count 168 Seg Neutrophils % 74.2 Lymphocytes % 13.1 Monocytes % 11.8 Eosinophils % 0.4 Basophils % 0.5 Absolute Neutrophils 8.5 H Absolute Lymphocytes 1.5 Absolute Monocytes 1.4 Absolute Eosinophils 0.0 Absolute Basophils 0.1 Carbonic Acid HCO3/H2CO3 Ratio ABG pH ABG pCO2 ABG pO2 ABG HCO3 ABG O2 Saturation ABG Base Excess FiO2 Sodium Potassium Chloride Carbon Dioxide Anion Gap BUN Creatinine Est GFR ( Amer) Est GFR (Non-Af Amer) Glucose Lactic Acid 2.4 H Calcium Magnesium Total Bilirubin AST ALT Alkaline Phosphatase Total Protein Albumin Triglycerides 57 10/30/17 10/30/17 03:13 05:15 WBC RBC Hgb Hct MCV MCH MCHC RDW Plt Count Seg Neutrophils % Lymphocytes % Monocytes % Eosinophils % Basophils % Absolute Neutrophils Absolute Lymphocytes Absolute Monocytes Absolute Eosinophils Absolute Basophils Carbonic Acid 1.04 L HCO3/H2CO3 Ratio 22:1 ABG pH 7.44 ABG pCO2 34.7 L ABG pO2 127.1 H ABG HCO3 23.0 ABG O2 Saturation 98.7 H ABG Base Excess -0.8 FiO2 30% Sodium 144.9 Potassium 4.1 Chloride 114 H Carbon Dioxide 23 Anion Gap 8 BUN 15 Creatinine 1.13 Est GFR ( Amer) > 60 Est GFR (Non-Af Amer) > 60 Glucose 89 Lactic Acid Calcium 8.7 Magnesium 2.1 Total Bilirubin 0.4 AST 31 ALT 52 Alkaline Phosphatase 85 Total Protein 5.6 L Albumin 2.9 L Triglycerides 10/29/17 10/29/17 10/29/17 15:19 15:19 15:19 Creatine Kinase 131 CK-MB (CK-2) 1.67 Troponin I 0.136 Cancelled 10/29/17 10/29/17 10/30/17 21:15 21:15 03:13 Creatine Kinase 144 172 H CK-MB (CK-2) 2.53 Troponin I 0.239 10/30/17 03:13 Creatine Kinase CK-MB (CK-2) 2.77 Troponin I 0.214 EKG Comments: Shows QS complex anterior precordial leads suggestive of prior anterior myocardial infarction. Nonspecific T-wave changes are noted. Impressions: KUB X-Ray 10/29/17 00:00 IMPRESSION: TIP OF THE NASOGASTRIC TUBE IN THE STOMACH. NO RADIOGRAPHIC EVIDENCE FOR ACUTE ABDOMINAL DISEASE. Chest X-Ray 10/29/17 11:38 IMPRESSION: Left lower lobe pneumonia status post intubation. No pneumothorax. Head CT 10/29/17 11:39 IMPRESSION: Multiple old infarcts. No acute findings. EVIDENCE OF ACUTE STROKE: NO. Assessment & Plan - Diagnosis (1) Elevated troponin Is this a current diagnosis for this admission?: Yes (2) NSTEMI (non-ST elevated myocardial infarction) Is this a current diagnosis for this admission?: Yes (3) Coronary artery disease Qualifiers: Coronary Disease-Associated Artery/Lesion type: [place] artery [place] vs. transplanted heart: [place] heart Associated angina: angina presence unspecified Qualified Code(s): I25.10 - Atherosclerotic heart disease of [place] coronary artery without angina pectoris Is this a current diagnosis for this admission?: Yes (4) Acute respiratory failure Qualifiers: Is this a current diagnosis for this admission?: Yes (5) Lactic acidosis Is this a current diagnosis for this admission?: Yes (6) Pneumonia Qualifiers: Pneumonia type: due to unspecified organism Lung location: unspecified part of lung Is this a current diagnosis for this admission?: Yes - Notes Notes: Elevated troponin I: This is most likely related to supply demand mismatch rather than acute coronary syndrome but cannot rule it out entirely since patient does have some nonspecific T-wave inversions which are noted to be new. At this point recommend Lovenox, aspirin, beta blockers, ION inhibitors etc. as tolerated by patient's blood pressure. Non-STEMI: Most likely type II but as noted above cannot rule out acute coronary syndrome. Patient does have depressed LVEF. Coronary artery disease: Please see discussion about non-STEMI and elevated troponin I. Acute respiratory failure: Most likely related to COPD, pneumonia, aspiration etc. Patient currently intubated and ventilated. Lactic acidosis: Most likely related to underlying sepsis, decreased cardiac output etc. Recommend supportive care. Pneumonia: Continue with supportive care and antibiotics as noted. - Time Time Spent: 30 to 50 Minutes - CODE STATUS : was discussed, patient remains DO NOT RESUSCITATE. Surrogate decision-maker unchanged. Multiple medical problems were addressed. More than 50% of the time spent coordinating care, discussing management plans with involved caregivers. Management plans discussed with involved personnels. Medical decision making was of moderate to high complexity, patient's has multiple comorbidities. Medications reviewed and adjusted accordingly: Yes
--- NOTE | 2017-10-30 22:52 | PDOC PROGRESS REPORT ---
Subjective Progress Note for:: 10/30/17 Subjective:: Patient was admitted yesterday, intubated on mechanical ventilation Reason For Visit: SEPSIS,PNEUMONIA Physical Exam Vital Signs: Temp Pulse Resp BP Pulse Ox 100.0 F 60 28 H 136/97 H 99 10/30/17 21:38 10/30/17 18:00 10/30/17 20:30 10/30/17 20:19 10/30/17 20:30 Intake & Output 10/29/17 10/30/17 10/31/17 06:59 06:59 06:59 Intake Total 962 997 Output Total 850 1180 Balance 112 -183 Weight 65.8 kg Respiratory exam: PRESENT: clear to auscultation srikanth Cardiovascular exam: PRESENT: +S1, +S2 Results Laboratory Results: 10/30/17 03:13 10/30/17 03:13 10/30/17 10/30/17 10/30/17 03:13 03:13 05:15 WBC 11.5 H RBC 3.99 L Hgb 10.9 L Hct 34.6 L MCV 87 MCH 27.3 MCHC 31.5 L RDW 18.6 H Plt Count 168 Seg Neutrophils % 74.2 Lymphocytes % 13.1 Monocytes % 11.8 Eosinophils % 0.4 Basophils % 0.5 Absolute Neutrophils 8.5 H Absolute Lymphocytes 1.5 Absolute Monocytes 1.4 Absolute Eosinophils 0.0 Absolute Basophils 0.1 Carbonic Acid 1.04 L HCO3/H2CO3 Ratio 22:1 ABG pH 7.44 ABG pCO2 34.7 L ABG pO2 127.1 H ABG HCO3 23.0 ABG O2 Saturation 98.7 H ABG Base Excess -0.8 FiO2 30% Sodium 144.9 Potassium 4.1 Chloride 114 H Carbon Dioxide 23 Anion Gap 8 BUN 15 Creatinine 1.13 Est GFR ( Amer) > 60 Est GFR (Non-Af Amer) > 60 Glucose 89 Calcium 8.7 Magnesium 2.1 Total Bilirubin 0.4 AST 31 ALT 52 Alkaline Phosphatase 85 Total Protein 5.6 L Albumin 2.9 L 10/29/17 10/29/17 10/29/17 15:19 15:19 15:19 Creatine Kinase 131 CK-MB (CK-2) 1.67 Troponin I 0.136 Cancelled 02/04/18 02/04/18 02/05/18 21:15 21:15 03:13 Creatine Kinase 144 172 H CK-MB (CK-2) 2.53 Troponin I 0.239 10/30/17 03:13 Creatine Kinase CK-MB (CK-2) 2.77 Troponin I 0.214 Impressions: KUB X-Ray 10/29/17 00:00 IMPRESSION: TIP OF THE NASOGASTRIC TUBE IN THE STOMACH. NO RADIOGRAPHIC EVIDENCE FOR ACUTE ABDOMINAL DISEASE. Chest X-Ray 10/29/17 11:38 IMPRESSION: Left lower lobe pneumonia status post intubation. No pneumothorax. Head CT 10/29/17 11:39 IMPRESSION: Multiple old infarcts. No acute findings. EVIDENCE OF ACUTE STROKE: NO. Assessment & Plan - Diagnosis (1) Acute respiratory failure Qualifiers: Respiratory failure complication: unspecified whether with hypoxia or hypercapnia Qualified Code(s): J96.00 - Acute respiratory failure, unspecified whether with hypoxia or hypercapnia Is this a current diagnosis for this admission?: Yes Plan: Patient on mechanical ventilation, continue vent support (2) Pneumonia Qualifiers: Pneumonia type: due to unspecified organism Laterality: left Lung location: lower lobe of lung Qualified Code(s): J18.1 - Lobar pneumonia, unspecified organism Is this a current diagnosis for this admission?: Yes Plan: Continue antibiotic intravenously - Plan Summary Plan Summary: Start tube feed with Jevity
[2017-10-30] MEDS ORDERED: TAMSULOSIN HCL 0.4 MG CAP.SR.24H PO ONE (23:00)
[2017-10-30] MEDS ORDERED: LEVOFLOXACIN 750 MG/D5W RTU 750 MG/150 ML RTUPB IV ONE (23:00)
[2017-10-30] MEDS ORDERED: CARVEDILOL 12.5 MG TABLET PO ONE (23:00)
[2017-10-30] MEDS ORDERED: VANCOMYCIN HCL 0 MG in DEXTROSE 5%-WATER 250 ML IV NR (23:00)
[2017-10-30] MEDS ORDERED: VANCOMYCIN HCL INJ 1000 MG VIAL IV PRN (23:03)
[2017-10-30] MEDS ORDERED: LANSOPRAZOLE 30 MG TAB.RAP.DR PO ONE (23:15)
[2017-10-30] MEDS ORDERED: ATORVASTATIN CALCIUM 40 MG TABLET PO ONE (23:15)
[2017-10-30] MEDS ORDERED: VANCOMYCIN HCL 1,500 MG in DEXTROSE 5%-WATER 250 ML IV ONE (23:15)
[2017-10-30] MEDS ORDERED: AMIODARONE HCL 200 MG TABLET PO ONE (23:15)
--- NOTE | 2017-10-30 23:37 | RADIOLOGY REPORT (SQ) ---
EXAM DESCRIPTION: CHEST SINGLE VIEW COMPLETED DATE/TIME: 10/30/2017 11:13 pm REASON FOR STUDY: pneumonia COMPARISON: 10/29/2017 NUMBER OF VIEWS: One view. TECHNIQUE: Single frontal radiographic image of the chest acquired. LIMITATIONS: None. FINDINGS: ENDOTRACHEAL TUBE: Tip is approximately 3.5 cm above the level of the johnny. OTHER SUPPORT DEVICES: NG tube tip overlies the body of the stomach. CHANGES IN RADIOGRAPHIC FINDINGS: Near complete resolution of patchy airspace disease in the left garima g base. HARDWARE: Dual lead cardiac defibrillator. OTHER: No other significant finding. IMPRESSION: Near complete resolution of patchy airspace disease in the left lung base. Tubes and lines are stable position. TECHNICAL DOCUMENTATION: JOB ID: [id number] [id number] 2010 [employer]- All Rights Reserved
[2017-10-30] MEDS ORDERED: VANCOMYCIN HCL INJ 1000 MG VIAL ONE (23:52)
[2017-10-30] MEDS ORDERED: VANCOMYCIN HCL INJ 500 MG VIAL ONE (23:52)
[2017-10-31] MEDS: PROPOFOL 100 ML IV PRN ×4 (02:20→21:24)
[2017-10-31 04:24] LABS: ABSOLUTE BASOPHILS # (AUTO) 0.1 10^3/uL (0.0-0.2); ABSOLUTE LYMPHOCYTES (AUTO) 1.5 10^3/uL (0.5-4.7); ABSOLUTE MONOCYTES (AUTO) 0.9 10^3/uL (0.1-1.4); BASOPHILS % (AUTO) 0.8 % (0-2); EOSINOPHILS % (AUTO) 0.4 % (0-6); HEMATOCRIT 29.6 % (37.9-51.0); HEMOGLOBIN 9.7 g/dL (13.5-17.0); LYMPHOCYTES % (AUTO) 19.6 % (13-45); MEAN CORPUSCULAR HGB CONC 32.9 g/dL (32.0-36.0); MEAN CORPUSCULAR VOLUME 85 fl (80-97); MONOCYTES % (AUTO) 12.1 % (3-13); PLATELET COUNT 147 10^3/uL (150-450); RED BLOOD COUNT 3.48 10^6/uL (4.35-5.55); RED CELL DISTRIBUTION WIDTH 18.3 % (11.5-14.0); SEGMENTED NEUTROPHILS % (AUTO) 67.1 % (42-78); TOTAL CELLS COUNTED % (AUTO) 100 %; WHITE BLOOD COUNT 7.5 10^3/uL (4.0-10.5)
[2017-10-31 04:46] LABS: ALANINE AMINOTRANSFERASE 44 U/L (21-72); ALBUMIN 2.3 g/dL (3.5-5.0); ALKALINE PHOSPHATASE 69 U/L (38-126); ASPARTATE AMINO TRANSFERASE 24 U/L (17-59); BILIRUBIN,DIRECT 0.4 mg/dL (0.0-0.4); BILIRUBIN,TOTAL 0.4 mg/dL (0.2-1.3); BLOOD UREA NITROGEN 10 mg/dL (7-20); CALCIUM 8.8 mg/dL (8.4-10.2); GLUCOSE 76 mg/dL (75-110); MAGNESIUM 1.9 mg/dL (1.6-2.3); TOTAL PROTEIN 4.9 g/dL (6.3-8.2)
[2017-10-31 04:59] LABS: ANION GAP 5 (5-19); POTASSIUM 3.5 mmol/L (3.6-5.0)
[2017-10-31 05:00] LABS: CARBON DIOXIDE 23 mmol/L (22-30); CHLORIDE 118 mmol/L (98-107); SODIUM 145.6 mmol/L (137-145)
--- NOTE | 2017-10-31 06:54 | RADIOLOGY REPORT (SQ) ---
EXAM DESCRIPTION: CHEST SINGLE VIEW CLINICAL HISTORY: pneumonia COMPARISON: 10/30/2017 FINDINGS: Single frontal view of the chest. Endotracheal tube just above the johnny. NG tube with tip below the diaphragm. Left-sided pacemaker. Heart is not enlarged. Tortuosity of thoracic aorta. No consolidation, pneumothorax, or pleural effusion. No acute pulmonary process. Upper abdominal soft tissues are unremarkable. IMPRESSION: 1. Stable appearance of the chest.
--- NOTE | 2017-10-31 09:10 | XCELERA REPORT ---
[address] [address] Transthoracic Echocardiogram Report Name: MOHAN BALLESTEROS JR Age: 76 yrs Gender: Male : 1940 Patient Status: Inpatient Patient Location: ICU^605^A Study Date: 10/30/2017 01:45 PM Height: 66 in Weight: 145 lb BSA: 1.7 m2 Procedure: A complete two-dimensional transthoracic echocardiogram was performed (2D, M-mode, spectral and color flow Doppler). The study was technically difficult with many images being suboptimal in quality. Reason For Study: Non-STEMI Ordering Physician: WILDER BORGES Performed By: Herlinda Rodriguez Interpretation Summary The study was technically difficult with many images being suboptimal in quality. Left ventricular systolic function is moderately reduced. The Ejection Fraction estimate is 35-40% Doppler measurements suggest pseudonormalized left ventricular relaxation, which is associated with grade II/IV or mild to moderate diastolic dysfunction The left ventricle is grossly normal size. There is apical wall akinesis There is distal anterior wall akinesis Right ventricular function cannot be assessed due to poor image quality. The right atrium is normal. The left atrial size is normal. There is no mitral valve stenosis. There is a trace amount of mitral regurgitation No aortic regurgitation is present. There is no aortic valve stenosis There is no tricuspid stenosis. No tricuspid regurgitation. The aortic root is not well visualized. The inferior vena cava appeared normal and decreased < 50% with respiration (RAP 10-15 mmHg) Minimal pericardial effusion. MMode/2D Measurements & Calculations RVDd: 2.2 cm LVIDd: 5.3 cm FS: 16.4 % Ao root diam: 3.5 cm IVSd: 0.71 cm LVIDs: 4.4 cm EDV(Teich): 135.3 ml LVPWd: 0.74 cm ESV(Teich): 89.2 ml Ao root area: 9.4 cm2 EF(Teich): 34.1 % LA dimension: 2.8 cm Doppler Measurements & Calculations MV E max isidra: MV P1/2t max isidra: Ao V2 max: LV V1 max P.8 cm/sec 54.8 cm/sec 117.0 cm/sec 3.6 mmHg MV A max isidra: MV P1/2t: 93.2 msec Ao max PG: LV V1 max: 80.9 cm/sec 5.5 mmHg 94.3 cm/sec MV E/A: 0.66 MVA(P1/2t): 2.4 cm2 MV dec slope: 172.3 cm/sec2 PA V2 max: 94.8 cm/sec PA max P.6 mmHg Left Ventricle The left ventricle is grossly normal size. Left ventricular systolic function is moderately reduced. The Ejection Fraction estimate is 35-40%. Doppler measurements suggest pseudonormalized left ventricular relaxation, which is associated with grade II/IV or mild to moderate diastolic dysfunction. There is apical wall akinesis. There is distal anterior wall akinesis. Right Ventricle The right ventricle is grossly normal size. There is normal right ventricular wall thickness. Right ventricular function cannot be assessed due to poor image quality. Atria The right atrium is normal. The left atrial size is normal. Interarterial septum not well visualized and not well dopplered. Cannot comment on ASD/PFO presence. Mitral Valve The mitral valve is grossly normal. There is no mitral valve stenosis. There is a trace amount of mitral regurgitation. Aortic Valve The aortic valve is not well visualized secondary to technical limitations. There is no aortic valve stenosis. No aortic regurgitation is present. Tricuspid Valve The tricuspid valve is not well visualized secondary to technical limitations. There is no tricuspid stenosis. No tricuspid regurgitation. Pulmonic Valve The pulmonic valve is not well visualized. Great Vessels The aortic root is not well visualized. The inferior vena cava appeared normal and decreased < 50% with respiration (RAP 10-15 mmHg). Effusions Minimal pericardial effusion. : WILDER BORGES > Wilder Borges
[2017-10-31] MEDS: CEFEPIME 1 GM/D5W RTU 1 GM/50 ML RTUPB IV SCH ×2 (09:25→21:21)
[2017-10-31] MEDS: FAMOTIDINE INJ/PF 20 MG/2 ML SDV IV SCH ×2 (09:26→21:22)
[2017-10-31] MEDS: CARVEDILOL 12.5 MG TABLET PO SCH ×2 (09:27→21:23)
[2017-10-31] MEDS: LANSOPRAZOLE 30 MG TAB.RAP.DR PO SCH (09:27)
[2017-10-31] MEDS: TAMSULOSIN HCL 0.4 MG CAP.SR.24H PO SCH (09:27)
[2017-10-31] MEDS: AMIODARONE HCL 200 MG TABLET PO SCH ×2 (09:27→21:23)
[2017-10-31] MEDS: ENOXAPARIN SODIUM INJ 30 MG/0.3 ML DISP.SYRIN SUBCUT SCH (09:28)
[2017-10-31] MEDS: VANCOMYCIN HCL 750 MG in DEXTROSE 5%-WATER 250 ML IV SCH (12:26)
[2017-10-31] MEDS ORDERED: POTASSI CL 20 MEQ/50 ML RIDER 20 MEQ/50 ML RTUPB IV ONE (15:00)
[2017-10-31] MEDS: NORMAL SALINE 1000 ML 1,000 ML IV PRN ×2 (15:05)
--- NOTE | 2017-10-31 20:27 | PDOC PROGRESS REPORT ---
Subjective Progress Note for:: 10/31/17 Subjective:: Patient about the same and has made very little progress. There is no significant change in general condition. Patient remains intubated and sedated. Cardiac cruz he seems maintaining good vitals and stable paced rhythm. Patient remains intubated, sedated, patient however looks comfortable and in acute distress. Medications reviewed. Reason For Visit: SEPSIS,PNEUMONIA Physical Exam Vital Signs: Temp Pulse Resp BP Pulse Ox 99.7 F 60 12 122/79 100 10/31/17 19:34 10/31/17 12:00 10/31/17 18:00 10/31/17 17:19 10/31/17 18:00 Intake & Output 10/30/17 10/31/17 11/01/17 06:59 06:59 06:59 Intake Total 962 2503 1219 Output Total 850 2670 925 Balance 112 -167 294 Weight 65.8 kg 65.6 kg Exam: GENERAL: well-nourished and in no acute distress. Patient is intubated and sedated. Orientation cannot be checked HEAD: Atraumatic, normocephalic. EYES: Pupils equal round and reactive to light, extraocular movements could not be checked, sclera anicteric, conjunctiva are normal. ENT: TMs normal, nares patent, oropharynx clear without exudates. Moist mucous membranes. No oral ulcerations or bleeding gums noted NECK: supple without lymphadenopathy or JVD. Trachea is central. No cervical or axillary lymphadenopathy noted. Carotids are 2+ LUNGS: Breath sounds mostly clear to auscultation patient is noted to have bibasal crackles at the extreme bases CHEST: Palpation of the chest wall shows no significant chest wall tenderness or abnormalities. HEART: [employer], No PSH, 2/6 CYNDIE aortic area, 1/6 reyna systolic murmur mitral area , no rubs or gallops. ABDOMEN: Soft, no significant tenderness appreciated, normoactive bowel sounds. No guarding, no rebound. No rigidity noted . No masses appreciated. EXTREMITIES: Pedal pulses are 1-2+, no calf tenderness noted, 1+ pedal edema noted. No clubbing or cyanosis. Status post AKA left lower extremity NEUROLOGICAL: The patient cannot participate in the neurological exam but no facial asymmetry noted. Extremities slightly hypotonic PSYCH: This cannot be evaluated. Patient cannot participate. SKIN: No significant ecchymosis, rash, or signs of pruritus noted. MUSCULOSKELETAL EXAM: No significant joint swelling noted. Patient cannot participate in musculoskeletal exam Results Laboratory Results: 10/31/17 03:53 10/31/17 03:53 10/31/17 10/31/17 03:53 03:53 WBC 7.5 RBC 3.48 L Hgb 9.7 L Hct 29.6 L MCV 85 MCH 28.0 MCHC 32.9 RDW 18.3 H Plt Count 147 L Seg Neutrophils % 67.1 Lymphocytes % 19.6 Monocytes % 12.1 Eosinophils % 0.4 Basophils % 0.8 Absolute Neutrophils 5.0 Absolute Lymphocytes 1.5 Absolute Monocytes 0.9 Absolute Eosinophils 0.0 Absolute Basophils 0.1 Sodium 145.6 H Potassium 3.5 L Chloride 118 H Carbon Dioxide 23 Anion Gap 5 BUN 10 Creatinine 0.88 Est GFR ( Amer) > 60 Est GFR (Non-Af Amer) > 60 Glucose 76 Calcium 8.8 Magnesium 1.9 Total Bilirubin 0.4 AST 24 ALT 44 Alkaline Phosphatase 69 Total Protein 4.9 L Albumin 2.3 L 10/29/17 16:00 Tracheal Aspirate Gram Stain - Final 10/29/17 16:00 Tracheal Aspirate Sputum Culture - Final NORMAL SANDRITA 10/29/17 10/29/17 10/29/17 15:19 15:19 15:19 Creatine Kinase 131 CK-MB (CK-2) 1.67 Troponin I 0.136 Cancelled 10/29/17 10/29/17 10/30/17 21:15 21:15 03:13 Creatine Kinase 144 172 H CK-MB (CK-2) 2.53 Troponin I 0.239 10/30/17 03:13 Creatine Kinase CK-MB (CK-2) 2.77 Troponin I 0.214 EKG Comments: Telemetry strip shows atrial paced rhythm. Impressions: KUB X-Ray 10/29/17 00:00 IMPRESSION: TIP OF THE NASOGASTRIC TUBE IN THE STOMACH. NO RADIOGRAPHIC EVIDENCE FOR ACUTE ABDOMINAL DISEASE. Head CT 10/29/17 11:39 IMPRESSION: Multiple old infarcts. No acute findings. EVIDENCE OF ACUTE STROKE: NO. Chest X-Ray 10/31/17 07:00 IMPRESSION: 1. Stable appearance of the chest. Assessment & Plan - Diagnosis (1) Elevated troponin Is this a current diagnosis for this admission?: Yes (2) NSTEMI (non-ST elevated myocardial infarction) Is this a current diagnosis for this admission?: Yes (3) Coronary artery disease Qualifiers: Coronary Disease-Associated Artery/Lesion type: [place] artery [place] vs. transplanted heart: [place] heart Associated angina: angina presence unspecified Qualified Code(s): I25.10 - Atherosclerotic heart disease of [place] coronary artery without angina pectoris Is this a current diagnosis for this admission?: Yes (4) Acute respiratory failure Qualifiers: Is this a current diagnosis for this admission?: Yes (5) Lactic acidosis Is this a current diagnosis for this admission?: Yes (6) Pneumonia Qualifiers: Pneumonia type: due to unspecified organism Lung location: unspecified part of lung Is this a current diagnosis for this admission?: Yes - Notes Notes: 2D echocardiogram shows mildly depressed LVEF with apical wall motion abnormalities which may be chronic. No new recommendations since yesterday. However will continue to follow because of significant cardiac related issues. Will repeat an EKG in the morning. Elevated troponin I: This is most likely related to supply demand mismatch rather than acute coronary syndrome but cannot rule it out entirely since patient does have some nonspecific T-wave inversions which are noted to be new. At this point recommend Lovenox, aspirin, beta blockers, ION inhibitors etc. as tolerated by patient's blood pressure. Non-STEMI: Most likely type II but as noted above cannot rule out acute coronary syndrome. Patient does have depressed LVEF. Coronary artery disease: Please see discussion about non-STEMI and elevated troponin I. Acute respiratory failure: Most likely related to COPD, pneumonia, aspiration etc. Patient currently intubated and ventilated. Lactic acidosis: Most likely related to underlying sepsis, decreased cardiac output etc. Recommend supportive care. Pneumonia: Continue with supportive care and antibiotics as noted. - Time Time with patient: Greater than 35 minutes - CODE STATUS : was discussed, patient remains DO NOT RESUSCITATE. Surrogate decision-maker unchanged. Multiple medical problems were addressed. More than 50% of the time spent coordinating care, discussing management plans with involved caregivers. Management plans discussed with involved personnels. Medical decision making was of moderate to high complexity, patient's has multiple comorbidities. Medications reviewed and adjusted accordingly: Yes
--- NOTE | 2017-10-31 21:19 | PDOC PROGRESS REPORT ---
Subjective Progress Note for:: 10/31/17 Subjective:: Patient intubated on light sedation alert Reason For Visit: SEPSIS,PNEUMONIA Physical Exam Vital Signs: Temp Pulse Resp BP Pulse Ox 99.7 F 60 12 122/79 100 10/31/17 19:34 10/31/17 20:00 10/31/17 18:00 10/31/17 17:19 10/31/17 18:00 Intake & Output 10/30/17 10/31/17 11/01/17 06:59 06:59 06:59 Intake Total 962 2503 1219 Output Total 850 0170 925 Balance 112 -167 294 Weight 65.8 kg 65.6 kg Eye exam: PRESENT: PERRLA Respiratory exam: PRESENT: clear to auscultation srikanth Cardiovascular exam: PRESENT: +S1, +S2 GI/Abdominal exam: PRESENT: soft Results Laboratory Results: 10/31/17 03:53 10/31/17 03:53 10/31/17 10/31/17 03:53 03:53 WBC 7.5 RBC 3.48 L Hgb 9.7 L Hct 29.6 L MCV 85 MCH 28.0 MCHC 32.9 RDW 18.3 H Plt Count 147 L Seg Neutrophils % 67.1 Lymphocytes % 19.6 Monocytes % 12.1 Eosinophils % 0.4 Basophils % 0.8 Absolute Neutrophils 5.0 Absolute Lymphocytes 1.5 Absolute Monocytes 0.9 Absolute Eosinophils 0.0 Absolute Basophils 0.1 Sodium 145.6 H Potassium 3.5 L Chloride 118 H Carbon Dioxide 23 Anion Gap 5 BUN 10 Creatinine 0.88 Est GFR ( Amer) > 60 Est GFR (Non-Af Amer) > 60 Glucose 76 Calcium 8.8 Magnesium 1.9 Total Bilirubin 0.4 AST 24 ALT 44 Alkaline Phosphatase 69 Total Protein 4.9 L Albumin 2.3 L 10/29/17 16:00 Tracheal Aspirate Gram Stain - Final 10/29/17 16:00 Tracheal Aspirate Sputum Culture - Final NORMAL SANDRITA 10/29/17 10/29/17 10/29/17 15:19 15:19 15:19 Creatine Kinase 131 CK-MB (CK-2) 1.67 Troponin I 0.136 Cancelled 10/29/17 10/29/17 10/30/17 21:15 21:15 03:13 Creatine Kinase 144 172 H CK-MB (CK-2) 2.53 Troponin I 0.239 10/30/17 03:13 Creatine Kinase CK-MB (CK-2) 2.77 Troponin I 0.214 Impressions: KUB X-Ray 10/29/17 00:00 IMPRESSION: TIP OF THE NASOGASTRIC TUBE IN THE STOMACH. NO RADIOGRAPHIC EVIDENCE FOR ACUTE ABDOMINAL DISEASE. Head CT 10/29/17 11:39 IMPRESSION: Multiple old infarcts. No acute findings. EVIDENCE OF ACUTE STROKE: NO. Chest X-Ray 10/31/17 07:00 IMPRESSION: 1. Stable appearance of the chest. Assessment & Plan - Diagnosis (1) Acute respiratory failure Qualifiers: Respiratory failure complication: unspecified whether with hypoxia or hypercapnia Qualified Code(s): J96.00 - Acute respiratory failure, unspecified whether with hypoxia or hypercapnia Is this a current diagnosis for this admission?: Yes (2) Pneumonia Qualifiers: Pneumonia type: due to unspecified organism Laterality: left Lung location: lower lobe of lung Qualified Code(s): J18.1 - Lobar pneumonia, unspecified organism Is this a current diagnosis for this admission?: Yes - Plan Summary Plan Summary: Continue mechanical ventilation start weaning trials
[2017-10-31] MEDS: ATORVASTATIN CALCIUM 40 MG TABLET PO SCH (21:22)
[2017-10-31] MEDS: LEVOFLOXACIN 750 MG/D5W RTU 750 MG/150 ML RTUPB IV SCH (21:22)
[2017-11-01] MEDS: VANCOMYCIN HCL 750 MG in DEXTROSE 5%-WATER 250 ML IV SCH ×2 (00:09→13:35)
[2017-11-01] MEDS: PROPOFOL 100 ML IV PRN ×2 (03:36→06:59)
[2017-11-01 04:17] LABS: ABSOLUTE LYMPHOCYTES (AUTO) 0.8 10^3/uL (0.5-4.7); ABSOLUTE MONOCYTES (AUTO) 0.9 10^3/uL (0.1-1.4); ABSOLUTE NEUT (AUTO) 6.3 10^3/uL (1.7-8.2); BASOPHILS % (AUTO) 0.5 % (0-2); EOSINOPHILS % (AUTO) 0.5 % (0-6); HEMATOCRIT 33.8 % (37.9-51.0); HEMOGLOBIN 10.9 g/dL (13.5-17.0); LYMPHOCYTES % (AUTO) 9.4 % (13-45); MEAN CORPUSCULAR HEMOGLOBIN 27.4 pg (27.0-33.4); MEAN CORPUSCULAR HGB CONC 32.2 g/dL (32.0-36.0); MEAN CORPUSCULAR VOLUME 85 fl (80-97); MONOCYTES % (AUTO) 11.8 % (3-13); PLATELET COUNT 151 10^3/uL (150-450); RED BLOOD COUNT 3.96 10^6/uL (4.35-5.55); RED CELL DISTRIBUTION WIDTH 18.6 % (11.5-14.0); SEGMENTED NEUTROPHILS % (AUTO) 77.8 % (42-78); TOTAL CELLS COUNTED % (AUTO) 100 %; WHITE BLOOD COUNT 8.1 10^3/uL (4.0-10.5)
[2017-11-01 04:31] LABS: ALANINE AMINOTRANSFERASE 38 U/L (21-72); ALBUMIN 2.7 g/dL (3.5-5.0); ALKALINE PHOSPHATASE 87 U/L (38-126); ANION GAP 8 (5-19); ASPARTATE AMINO TRANSFERASE 23 U/L (17-59); BILIRUBIN,DIRECT 0.3 mg/dL (0.0-0.4); BILIRUBIN,TOTAL 0.4 mg/dL (0.2-1.3); BLOOD UREA NITROGEN 7 mg/dL (7-20); CALCIUM 8.8 mg/dL (8.4-10.2); CARBON DIOXIDE 22 mmol/L (22-30); CHLORIDE 115 mmol/L (98-107); GLUCOSE 101 mg/dL (75-110); MAGNESIUM 1.7 mg/dL (1.6-2.3); POTASSIUM 3.6 mmol/L (3.6-5.0); SODIUM 144.9 mmol/L (137-145); TOTAL PROTEIN 5.3 g/dL (6.3-8.2)
[2017-11-01 05:07] LABS: ARTERIAL BLOOD BASE EXCESS -3.8 mmol/L; ARTERIAL BLOOD HCO3 19.5 mmol/L (20-26); ARTERIAL BLOOD O2 SATURATION 98.3 % (94-98); ARTERIAL BLOOD PCO2 29.9 mmHg (35-45); ARTERIAL BLOOD PH 7.43 (7.35-7.45); ARTERIAL BLOOD PO2 112.3 mmHg (80-100); ARTERIAL BLOOD TOTAL CO2 20.5 mmol/L (23-27)
[2017-11-01 05:09] LABS: ARTERIAL BLOOD FIO2 25%
[2017-11-01] MEDS: NORMAL SALINE 1000 ML 1,000 ML IV PRN ×2 (05:42→21:41)
--- NOTE | 2017-11-01 06:16 | RADIOLOGY REPORT (SQ) ---
EXAM DESCRIPTION: CHEST SINGLE VIEW CLINICAL HISTORY: pneumonia COMPARISON: 10/31/2017 FINDINGS: Single frontal view of the chest. Endotracheal tube just above the johnny. NG tube with tip below the diaphragm. Left-sided pacemaker. Heart is not enlarged. Tortuosity of thoracic aorta. Possible small right pleural effusion. No lobar consolidation or pneumothorax. No acute pulmonary process. Upper abdominal soft tissues are unremarkable. IMPRESSION: 1. Stable appearance of the chest. Electronically signed by: Hammad Isaacs 11/01/2017 5:15 AM
--- NOTE | 2017-11-01 09:13 | EKG REPORT ---
SEVERITY:- ABNORMAL ECG - SINUS RHYTHM SHORT NM INTERVAL, ACCELERATED AV CONDUCTION LOW VOLTAGE THROUGHOUT CONSIDER ANTEROSEPTAL INFARCT NONSPECIFIC T ABNORMALITIES, DIFFUSE LEADS : Confirmed by: Wilder Rizzo 01-Nov-2017 09:13:04
[2017-11-01] MEDS: AMIODARONE HCL 200 MG TABLET PO SCH ×2 (10:17→21:25)
[2017-11-01] MEDS: CARVEDILOL 12.5 MG TABLET PO SCH ×2 (10:17→21:25)
[2017-11-01] MEDS: LANSOPRAZOLE 30 MG TAB.RAP.DR PO SCH (10:18)
[2017-11-01] MEDS: FAMOTIDINE INJ/PF 20 MG/2 ML SDV IV SCH ×2 (10:18→21:24)
[2017-11-01] MEDS: CEFEPIME 1 GM/D5W RTU 1 GM/50 ML RTUPB IV SCH ×2 (10:18→21:25)
[2017-11-01] MEDS: ENOXAPARIN SODIUM INJ 30 MG/0.3 ML DISP.SYRIN SUBCUT SCH (10:18)
[2017-11-01] MEDS: TAMSULOSIN HCL 0.4 MG CAP.SR.24H PO SCH (10:25)
[2017-11-01] MEDS: ATORVASTATIN CALCIUM 40 MG TABLET PO SCH (21:25)
[2017-11-01] MEDS: LEVOFLOXACIN 750 MG/D5W RTU 750 MG/150 ML RTUPB IV SCH (21:26)
--- NOTE | 2017-11-01 21:55 | PDOC PROGRESS REPORT ---
Subjective Progress Note for:: 11/01/17 Subjective:: Patient seen by the bedside, he was extubated today presently on trach collar Reason For Visit: SEPSIS,PNEUMONIA Physical Exam Vital Signs: Temp Pulse Resp BP Pulse Ox 100.2 F 65 17 134/73 H 100 11/01/17 21:40 11/01/17 20:00 11/01/17 19:19 11/01/17 19:19 11/01/17 19:19 Intake & Output 10/31/17 11/01/17 11/02/17 06:59 06:59 06:59 Intake Total 2503 3021 1236 Output Total 2670 6329 1690 Balance -167 1046 -454 Weight 65.6 kg 66.8 kg General appearance: PRESENT: no acute distress Eye exam: PRESENT: PERRLA Respiratory exam: PRESENT: clear to auscultation srikanth Cardiovascular exam: PRESENT: +S1, +S2 GI/Abdominal exam: PRESENT: soft Neurological exam: PRESENT: alert Results Laboratory Results: 11/01/17 03:46 11/01/17 11:20 11/01/17 11/01/17 11/01/17 03:46 03:46 04:55 WBC 8.1 RBC 3.96 L Hgb 10.9 L Hct 33.8 L MCV 85 MCH 27.4 MCHC 32.2 RDW 18.6 H Plt Count 151 Seg Neutrophils % 77.8 Lymphocytes % 9.4 L Monocytes % 11.8 Eosinophils % 0.5 Basophils % 0.5 Absolute Neutrophils 6.3 Absolute Lymphocytes 0.8 Absolute Monocytes 0.9 Absolute Eosinophils 0.0 Absolute Basophils 0.0 Carbonic Acid 0.90 L HCO3/H2CO3 Ratio 21:1 ABG pH 7.43 ABG pCO2 29.9 L ABG pO2 112.3 H ABG HCO3 19.5 L ABG O2 Saturation 98.3 H ABG Base Excess -3.8 FiO2 25% Sodium 144.9 Potassium 3.6 Chloride 115 H Carbon Dioxide 22 Anion Gap 8 BUN 7 Creatinine 0.87 Est GFR ( Amer) > 60 Est GFR (Non-Af Amer) > 60 Glucose 101 Calcium 8.8 Magnesium 1.7 Total Bilirubin 0.4 AST 23 ALT 38 Alkaline Phosphatase 87 Total Protein 5.3 L Albumin 2.7 L 11/01/17 11:20 WBC RBC Hgb Hct MCV MCH MCHC RDW Plt Count Seg Neutrophils % Lymphocytes % Monocytes % Eosinophils % Basophils % Absolute Neutrophils Absolute Lymphocytes Absolute Monocytes Absolute Eosinophils Absolute Basophils Carbonic Acid HCO3/H2CO3 Ratio ABG pH ABG pCO2 ABG pO2 ABG HCO3 ABG O2 Saturation ABG Base Excess FiO2 Sodium Potassium Chloride Carbon Dioxide Anion Gap BUN Creatinine 0.79 Est GFR ( Amer) > 60 Est GFR (Non-Af Amer) > 60 Glucose Calcium Magnesium Total Bilirubin AST ALT Alkaline Phosphatase Total Protein Albumin 10/29/17 17:05 Thigh - Left Gram Stain - Final 10/29/17 17:05 Thigh - Left Wound Culture - Final Skin Cintia No Anaerobic Organisms 10/29/17 10/29/17 10/29/17 15:19 15:19 15:19 Creatine Kinase 131 CK-MB (CK-2) 1.67 Troponin I 0.136 Cancelled 10/29/17 10/29/17 10/30/17 21:15 21:15 03:13 Creatine Kinase 144 172 H CK-MB (CK-2) 2.53 Troponin I 0.239 10/30/17 03:13 Creatine Kinase CK-MB (CK-2) 2.77 Troponin I 0.214 Impressions: KUB X-Ray 10/29/17 00:00 IMPRESSION: TIP OF THE NASOGASTRIC TUBE IN THE STOMACH. NO RADIOGRAPHIC EVIDENCE FOR ACUTE ABDOMINAL DISEASE. Head CT 10/29/17 11:39 IMPRESSION: Multiple old infarcts. No acute findings. EVIDENCE OF ACUTE STROKE: NO. Chest X-Ray 11/01/17 07:00 IMPRESSION: 1. Stable appearance of the chest. Assessment & Plan - Diagnosis (1) Acute respiratory failure Qualifiers: Respiratory failure complication: unspecified whether with hypoxia or hypercapnia Qualified Code(s): J96.00 - Acute respiratory failure, unspecified whether with hypoxia or hypercapnia Is this a current diagnosis for this admission?: Yes (2) Pneumonia Qualifiers: Pneumonia type: due to unspecified organism Laterality: left Lung location: lower lobe of lung Qualified Code(s): J18.1 - Lobar pneumonia, unspecified organism Is this a current diagnosis for this admission?: Yes
[2017-11-01] MEDS: VANCOMYCIN HCL 1,000 MG in DEXTROSE 5%-WATER 250 ML IV SCH (23:36)
[2017-11-02 04:23] LABS: ABSOLUTE BASOPHILS # (AUTO) 0.1 10^3/uL (0.0-0.2); ABSOLUTE EOSINOPHILS # (AUTO) 0.1 10^3/uL (0.0-0.6); ABSOLUTE LYMPHOCYTES (AUTO) 1.4 10^3/uL (0.5-4.7); ABSOLUTE NEUT (AUTO) 4.8 10^3/uL (1.7-8.2); BASOPHILS % (AUTO) 0.8 % (0-2); EOSINOPHILS % (AUTO) 0.8 % (0-6); HEMATOCRIT 31.1 % (37.9-51.0); HEMOGLOBIN 10.1 g/dL (13.5-17.0); LYMPHOCYTES % (AUTO) 19.3 % (13-45); MEAN CORPUSCULAR HEMOGLOBIN 27.9 pg (27.0-33.4); MEAN CORPUSCULAR HGB CONC 32.4 g/dL (32.0-36.0); MEAN CORPUSCULAR VOLUME 86 fl (80-97); MONOCYTES % (AUTO) 13.7 % (3-13); PLATELET COUNT 141 10^3/uL (150-450); RED BLOOD COUNT 3.61 10^6/uL (4.35-5.55); RED CELL DISTRIBUTION WIDTH 18.4 % (11.5-14.0); SEGMENTED NEUTROPHILS % (AUTO) 65.4 % (42-78); TOTAL CELLS COUNTED % (AUTO) 100 %; WHITE BLOOD COUNT 7.3 10^3/uL (4.0-10.5)
[2017-11-02 04:39] LABS: ALANINE AMINOTRANSFERASE 40 U/L (21-72); ALBUMIN 2.7 g/dL (3.5-5.0); ALKALINE PHOSPHATASE 80 U/L (38-126); ANION GAP 6 (5-19); ASPARTATE AMINO TRANSFERASE 27 U/L (17-59); BILIRUBIN,DIRECT 0.2 mg/dL (0.0-0.4); BILIRUBIN,TOTAL 0.4 mg/dL (0.2-1.3); BLOOD UREA NITROGEN 6 mg/dL (7-20); CALCIUM 8.4 mg/dL (8.4-10.2); CARBON DIOXIDE 23 mmol/L (22-30); CHLORIDE 116 mmol/L (98-107); GLUCOSE 83 mg/dL (75-110); MAGNESIUM 1.6 mg/dL (1.6-2.3); POTASSIUM 3.3 mmol/L (3.6-5.0); SODIUM 144.9 mmol/L (137-145); TOTAL PROTEIN 5.4 g/dL (6.3-8.2)
[2017-11-02 05:23] LABS: ARTERIAL BLOOD BASE EXCESS -0.9 mmol/L; ARTERIAL BLOOD H2CO3 1.11 mmol/L (1.05-1.35); ARTERIAL BLOOD HCO3 23.3 mmol/L (20-26); ARTERIAL BLOOD O2 SATURATION 94.5 % (94-98); ARTERIAL BLOOD PCO2 36.9 mmHg (35-45); ARTERIAL BLOOD PH 7.42 (7.35-7.45); ARTERIAL BLOOD PO2 70.2 mmHg (80-100); ARTERIAL BLOOD TOTAL CO2 24.5 mmol/L (23-27)
[2017-11-02 05:24] LABS: ARTERIAL BLOOD FIO2 2L
--- NOTE | 2017-11-02 07:26 | RADIOLOGY REPORT (SQ) ---
EXAM DESCRIPTION: CHEST SINGLE VIEW CLINICAL HISTORY: pneumonia COMPARISON: 10/31/2017 FINDINGS: Single frontal view of the chest. Interval removal of endotracheal tube. NG tube with tip below the diaphragm. Left-sided pacemaker. Heart is not enlarged. Tortuosity of thoracic aorta. Level increase in hazy bilateral airspace opacity. No pneumothorax. . Upper abdominal soft tissues are unremarkable. IMPRESSION: 1. Interval removal of endotracheal tube with increased bilateral airspace opacity. Electronically signed by: Hammad Isaacs 11/02/2017 6:25 AM [employer]POOLER
--- NOTE | 2017-11-02 09:19 | EKG REPORT ---
SEVERITY:- ABNORMAL ECG - SINUS RHYTHM LOW VOLTAGE IN FRONTAL LEADS BORDERLINE R WAVE PROGRESSION, ANTERIOR LEADS NONSPECIFIC T ABNORMALITIES, DIFFUSE LEADS PROLONGED QT INTERVAL CONSIDER ANT NE OLD : Confirmed by: Wilder Rizzo 02-Nov-2017 09:18:35
--- NOTE | 2017-11-02 11:00 | PDOC PROGRESS REPORT ---
Subjective Progress Note for:: 11/01/17 Subjective:: Patient was seen yesterday on morning rounds, somehow, did not but missed and not dictated. Patient remained stable. Attempts to extubate will be made today. Patient remains intubated and sedated. Cardiac cruz he seems maintaining good vitals and stable paced rhythm. Patient remains intubated, sedated, patient however looks comfortable and in acute distress. Sedation is being gradually withdrawn. Medications reviewed. Reason For Visit: SEPSIS,PNEUMONIA Physical Exam Vital Signs: Temp Pulse Resp BP Pulse Ox 99.0 F 60 17 151/86 H 100 11/02/17 10:00 11/02/17 10:00 11/02/17 10:00 11/02/17 10:00 11/02/17 10:00 Intake & Output 11/01/17 11/02/17 11/03/17 06:59 06:59 06:59 Intake Total 3021 2609 Output Total 1975 2100 200 Balance 1046 509 -200 Weight 66.8 kg 66.7 kg Exam: GENERAL: well-nourished and in no acute distress. Patient is intubated and sedated. Orientation cannot be checked HEAD: Atraumatic, normocephalic. EYES: Pupils equal round and reactive to light, extraocular movements could not be checked, sclera anicteric, conjunctiva are normal. ENT: TMs normal, nares patent, oropharynx clear without exudates. Moist mucous membranes. No oral ulcerations or bleeding gums noted NECK: supple without lymphadenopathy or JVD. Trachea is central. No cervical or axillary lymphadenopathy noted. Carotids are 2+ LUNGS: Breath sounds mostly clear to auscultation patient is noted to have bibasal crackles at the extreme bases CHEST: Palpation of the chest wall shows no significant chest wall tenderness or abnormalities. HEART: [place] [employer], No PSH, 2/6 CYNDIE aortic area, 1/6 reyna systolic murmur mitral area , no rubs or gallops. ABDOMEN: Soft, no significant tenderness appreciated, normoactive bowel sounds. No guarding, no rebound. No rigidity noted . No masses appreciated. EXTREMITIES: Pedal pulses are 1-2+, no calf tenderness noted, 1+ pedal edema noted. No clubbing or cyanosis, Status post AKA left lower extremity. NEUROLOGICAL: The patient cannot participate in the neurological exam but no facial asymmetry noted. Extremities slightly hypotonic PSYCH: This cannot be evaluated. Patient cannot participate. SKIN: No significant ecchymosis, rash, or signs of pruritus noted. MUSCULOSKELETAL EXAM: No significant joint swelling noted. Patient cannot participate in musculoskeletal exam Results Laboratory Results: 11/02/17 03:46 11/02/17 03:46 11/01/17 11/02/17 11/02/17 11:20 03:46 03:46 WBC 7.3 RBC 3.61 L Hgb 10.1 L Hct 31.1 L MCV 86 MCH 27.9 MCHC 32.4 RDW 18.4 H Plt Count 141 L Seg Neutrophils % 65.4 Lymphocytes % 19.3 Monocytes % 13.7 H Eosinophils % 0.8 Basophils % 0.8 Absolute Neutrophils 4.8 Absolute Lymphocytes 1.4 Absolute Monocytes 1.0 Absolute Eosinophils 0.1 Absolute Basophils 0.1 Carbonic Acid HCO3/H2CO3 Ratio ABG pH ABG pCO2 ABG pO2 ABG HCO3 ABG O2 Saturation ABG Base Excess FiO2 Sodium 144.9 Potassium 3.3 L Chloride 116 H Carbon Dioxide 23 Anion Gap 6 BUN 6 L Creatinine 0.79 0.90 Est GFR ( Amer) > 60 > 60 Est GFR (Non-Af Amer) > 60 > 60 Glucose 83 Calcium 8.4 Magnesium 1.6 Total Bilirubin 0.4 AST 27 ALT 40 Alkaline Phosphatase 80 Total Protein 5.4 L Albumin 2.7 L 11/02/17 05:10 WBC RBC Hgb Hct MCV MCH MCHC RDW Plt Count Seg Neutrophils % Lymphocytes % Monocytes % Eosinophils % Basophils % Absolute Neutrophils Absolute Lymphocytes Absolute Monocytes Absolute Eosinophils Absolute Basophils Carbonic Acid 1.11 HCO3/H2CO3 Ratio 20:1 ABG pH 7.42 ABG pCO2 36.9 ABG pO2 70.2 L ABG HCO3 23.3 ABG O2 Saturation 94.5 ABG Base Excess -0.9 FiO2 2L Sodium Potassium Chloride Carbon Dioxide Anion Gap BUN Creatinine Est GFR ( Amer) Est GFR (Non-Af Amer) Glucose Calcium Magnesium Total Bilirubin AST ALT Alkaline Phosphatase Total Protein Albumin 10/29/17 17:05 Thigh - Left Gram Stain - Final 10/29/17 17:05 Thigh - Left Wound Culture - Final Skin Cintia No Anaerobic Organisms 10/29/17 10/29/17 10/29/17 15:19 15:19 15:19 Creatine Kinase 131 CK-MB (CK-2) 1.67 Troponin I 0.136 Cancelled 10/29/17 10/29/17 10/30/17 21:15 21:15 03:13 Creatine Kinase 144 172 H CK-MB (CK-2) 2.53 Troponin I 0.239 10/30/17 03:13 Creatine Kinase CK-MB (CK-2) 2.77 Troponin I 0.214 EKG Comments: 12-lead EKG reviewed showed atrial paced rhythm, nonspecific T-wave inversion noted anterior precordial leads. Telemetry shows sinus rhythm without any sustained tachycardia or bradycardia arrhythmias. Impressions: KUB X-Ray 10/29/17 00:00 IMPRESSION: TIP OF THE NASOGASTRIC TUBE IN THE STOMACH. NO RADIOGRAPHIC EVIDENCE FOR ACUTE ABDOMINAL DISEASE. Head CT 10/29/17 11:39 IMPRESSION: Multiple old infarcts. No acute findings. EVIDENCE OF ACUTE STROKE: NO. Chest X-Ray 11/02/17 07:00 IMPRESSION: 1. Interval removal of endotracheal tube with increased bilateral airspace opacity. Assessment & Plan - Diagnosis (1) Elevated troponin Is this a current diagnosis for this admission?: Yes (2) NSTEMI (non-ST elevated myocardial infarction) Is this a current diagnosis for this admission?: Yes (3) Coronary artery disease Qualifiers: Coronary Disease-Associated Artery/Lesion type: [place] artery [place] vs. transplanted heart: [place] heart Associated angina: angina presence unspecified Qualified Code(s): I25.10 - Atherosclerotic heart disease of [place] coronary artery without angina pectoris Is this a current diagnosis for this admission?: Yes (4) Acute respiratory failure Qualifiers: Is this a current diagnosis for this admission?: Yes (5) Lactic acidosis Is this a current diagnosis for this admission?: Yes (6) Pneumonia Qualifiers: Pneumonia type: due to unspecified organism Lung location: unspecified part of lung Is this a current diagnosis for this admission?: Yes - Notes Notes: Elevated troponin I: This is most likely related to supply demand mismatch rather than acute coronary syndrome but cannot rule it out entirely since patient does have some nonspecific T-wave inversions which are noted to be new. At this point recommend Lovenox, aspirin, beta blockers, ION inhibitors etc. as tolerated by patient's blood pressure. Patient has remained stable without any new EKG changes. Any ischemia evaluation will be planned later on after talking to the patient postextubation. Non-STEMI: Most likely type II but as noted above cannot rule out acute coronary syndrome. Patient does have depressed LVEF. Currently is stable. Coronary artery disease: Please see discussion about non-STEMI and elevated troponin I. Currently stable. Acute respiratory failure: Most likely related to COPD, pneumonia, aspiration etc. Patient currently intubated and ventilated. Attempts are being made to try to extubate patient. Lactic acidosis: Most likely related to underlying sepsis, decreased cardiac output etc. Recommend supportive care. This has improved. Pneumonia: Continue with supportive care and antibiotics as noted. Seems to be improving. - Time Time with patient: 15-25 minutes - CODE STATUS : was discussed, patient remains DO NOT RESUSCITATE. Surrogate decision-maker unchanged. Multiple medical problems were addressed. More than 50% of the time spent coordinating care, discussing management plans with involved caregivers. Management plans discussed with involved personnels. Medical decision making was of moderate to high complexity, patient's has multiple comorbidities. Medications reviewed and adjusted accordingly: Yes
--- NOTE | 2017-11-02 11:04 | PDOC PROGRESS REPORT ---
Subjective Progress Note for:: 11/02/17 Subjective:: Patient has been extubated. Currently alert and verbal. Patient seems to be doing better with gradual improvement. Pt is denying any chest arm or neck discomfort. Patient denying any other significant discomfort. Patient is maintaining sinus rhythm/atrial paced rhythm. Review of systems: Rest review of systems negative. Medications: Medications have been reviewed. Reason For Visit: SEPSIS,PNEUMONIA Physical Exam Vital Signs: Temp Pulse Resp BP Pulse Ox 99.0 F 60 17 151/86 H 100 11/02/17 10:00 11/02/17 10:00 11/02/17 10:00 11/02/17 10:00 11/02/17 10:00 Intake & Output 11/01/17 11/02/17 11/03/17 06:59 06:59 06:59 Intake Total 3021 2609 Output Total 1975 2100 200 Balance 1046 509 -200 Weight 66.8 kg 66.7 kg Exam: GENERAL: well-nourished and in no acute distress. Alert and oriented x2, patient currently not oriented to time. HEAD: Atraumatic, normocephalic. EYES: Pupils equal round and reactive to light, extraocular movements intact, sclera anicteric, conjunctiva are normal. ENT: TMs normal, nares patent, oropharynx clear without exudates. Moist mucous membranes. No oral ulcerations or bleeding gums noted NECK: supple without lymphadenopathy. Trachea is central. No cervical or axillary lymphadenopathy noted. Carotids are 2+, JVD WNL LUNGS: Respiration seems nonlabored, no significant accessory muscle action noted. Bibasilar fine crackles and few bilateral wheezes rales or rhonchi noted. No significant dullness noted on percussion. CHEST: Palpation of the chest wall shows no significant chest wall tenderness. No other significant abnormalities noted. 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 ABDOMEN: Soft, no significant tenderness appreciated, normoactive bowel sounds. No guarding, no rebound. No rigidity noted . No masses appreciated. EXTREMITIES: Pedal pulses are 1-2+, no calf tenderness noted. No clubbing or cyanosis.trace to 1+ pedal edema noted, Status post AKA left lower extremity. NEUROLOGICAL: Focused neurological exam showed no significant neurologic deficit. Normal speech, no focal weakness appreciated on quick neuro exam patient able to move all 4 extremities. PSYCH: Normal mood, normal affect. Judgment and insight led not checked today. SKIN: No significant ecchymosis, rash, ulcerations or signs of pruritus noted. MUSCULOSKELETAL EXAM: No significant joint swelling noted. Results Laboratory Results: 11/02/17 03:46 11/02/17 03:46 11/01/17 11/02/17 11/02/17 11:20 03:46 03:46 WBC 7.3 RBC 3.61 L Hgb 10.1 L Hct 31.1 L MCV 86 MCH 27.9 MCHC 32.4 RDW 18.4 H Plt Count 141 L Seg Neutrophils % 65.4 Lymphocytes % 19.3 Monocytes % 13.7 H Eosinophils % 0.8 Basophils % 0.8 Absolute Neutrophils 4.8 Absolute Lymphocytes 1.4 Absolute Monocytes 1.0 Absolute Eosinophils 0.1 Absolute Basophils 0.1 Carbonic Acid HCO3/H2CO3 Ratio ABG pH ABG pCO2 ABG pO2 ABG HCO3 ABG O2 Saturation ABG Base Excess FiO2 Sodium 144.9 Potassium 3.3 L Chloride 116 H Carbon Dioxide 23 Anion Gap 6 BUN 6 L Creatinine 0.79 0.90 Est GFR ( Amer) > 60 > 60 Est GFR (Non-Af Amer) > 60 > 60 Glucose 83 Calcium 8.4 Magnesium 1.6 Total Bilirubin 0.4 AST 27 ALT 40 Alkaline Phosphatase 80 Total Protein 5.4 L Albumin 2.7 L 11/02/17 05:10 WBC RBC Hgb Hct MCV MCH MCHC RDW Plt Count Seg Neutrophils % Lymphocytes % Monocytes % Eosinophils % Basophils % Absolute Neutrophils Absolute Lymphocytes Absolute Monocytes Absolute Eosinophils Absolute Basophils Carbonic Acid 1.11 HCO3/H2CO3 Ratio 20:1 ABG pH 7.42 ABG pCO2 36.9 ABG pO2 70.2 L ABG HCO3 23.3 ABG O2 Saturation 94.5 ABG Base Excess -0.9 FiO2 2L Sodium Potassium Chloride Carbon Dioxide Anion Gap BUN Creatinine Est GFR ( Amer) Est GFR (Non-Af Amer) Glucose Calcium Magnesium Total Bilirubin AST ALT Alkaline Phosphatase Total Protein Albumin 10/29/17 17:05 Thigh - Left Gram Stain - Final 10/29/17 17:05 Thigh - Left Wound Culture - Final Skin Cintia No Anaerobic Organisms 10/29/17 10/29/17 10/29/17 15:19 15:19 15:19 Creatine Kinase 131 CK-MB (CK-2) 1.67 Troponin I 0.136 Cancelled 10/29/17 10/29/17 10/30/17 21:15 21:15 03:13 Creatine Kinase 144 172 H CK-MB (CK-2) 2.53 Troponin I 0.239 10/30/17 03:13 Creatine Kinase CK-MB (CK-2) 2.77 Troponin I 0.214 EKG Comments: Twelve-lead EKG is reviewed. No significant changes noted from before. Telemetry shows sinus/atrial paced rhythm without any sustained tachycardia or bradycardia arrhythmias. Impressions: KUB X-Ray 10/29/17 00:00 IMPRESSION: TIP OF THE NASOGASTRIC TUBE IN THE STOMACH. NO RADIOGRAPHIC EVIDENCE FOR ACUTE ABDOMINAL DISEASE. Head CT 10/29/17 11:39 IMPRESSION: Multiple old infarcts. No acute findings. EVIDENCE OF ACUTE STROKE: NO. Chest X-Ray 11/02/17 07:00 IMPRESSION: 1. Interval removal of endotracheal tube with increased bilateral airspace opacity. Assessment & Plan - Diagnosis (1) Elevated troponin Is this a current diagnosis for this admission?: Yes (2) NSTEMI (non-ST elevated myocardial infarction) Is this a current diagnosis for this admission?: Yes (3) Coronary artery disease Qualifiers: Coronary Disease-Associated Artery/Lesion type: [place] artery [place] vs. transplanted heart: [place] heart Associated angina: angina presence unspecified Qualified Code(s): I25.10 - Atherosclerotic heart disease of [place] coronary artery without angina pectoris Is this a current diagnosis for this admission?: Yes (4) Acute respiratory failure Qualifiers: Is this a current diagnosis for this admission?: Yes (5) Lactic acidosis Is this a current diagnosis for this admission?: Yes (6) Pneumonia Qualifiers: Pneumonia type: due to unspecified organism Lung location: unspecified part of lung Is this a current diagnosis for this admission?: Yes (7) Hypertension Qualifiers: Hypertension type: essential hypertension Qualified Code(s): I10 - Essential (primary) hypertension Is this a current diagnosis for this admission?: Yes (8) Ventricular tachycardia Is this a current diagnosis for this admission?: No - Notes Notes: Elevated troponin I: This is most likely related to supply demand mismatch rather than acute coronary syndrome but cannot rule it out entirely since patient does have some nonspecific T-wave inversions which are noted to be new. At this point recommend Lovenox, aspirin, beta blockers, ION inhibitors etc. as tolerated by patient's blood pressure. No ischemia evaluation planned at this time. We will talk to the patient in detail tomorrow when he is more stable to assess any need for ischemia evaluation. Non-STEMI: Most likely type II but as noted above cannot rule out acute coronary syndrome. Patient does have depressed LVEF. Will gradually optimize medications. Coronary artery disease: Please see discussion about non-STEMI and elevated troponin I. Acute respiratory failure: Most likely related to COPD, pneumonia, aspiration etc. resolved currently off ventilator. Patient is needing some supplemental oxygen. Lactic acidosis: Most likely related to underlying sepsis, decreased cardiac output etc. seems resolved.. Pneumonia: Continue with supportive care and antibiotics as noted. Seems markedly improved. Hypertension: We will start patient on Diovan 80 mg p.o. daily. History of ventricular tachycardia: No recurrence during this admission. Continue amiodarone therapy. - Time Time with patient: 15-25 minutes - CODE STATUS : was discussed, patient remains DO NOT RESUSCITATE. Surrogate decision-maker unchanged. Multiple medical problems were addressed. More than 50% of the time spent coordinating care, discussing management plans with involved caregivers. Management plans discussed with involved personnels. Medical decision making was of moderate to high complexity, patient's has multiple comorbidities. Medications reviewed and adjusted accordingly: Yes
[2017-11-02] MEDS: CEFEPIME 1 GM/D5W RTU 1 GM/50 ML RTUPB IV SCH (12:07)
[2017-11-02] MEDS: AMIODARONE HCL 200 MG TABLET PO SCH ×2 (12:08→22:28)
[2017-11-02] MEDS: FAMOTIDINE INJ/PF 20 MG/2 ML SDV IV SCH ×2 (12:08→22:27)
[2017-11-02] MEDS: VANCOMYCIN HCL 1,000 MG in DEXTROSE 5%-WATER 250 ML IV SCH (12:08)
[2017-11-02] MEDS: CARVEDILOL 12.5 MG TABLET PO SCH ×2 (12:09→22:27)
[2017-11-02] MEDS: TAMSULOSIN HCL 0.4 MG CAP.SR.24H PO SCH (12:09)
[2017-11-02] MEDS: LANSOPRAZOLE 30 MG TAB.RAP.DR PO SCH (12:10)
[2017-11-02] MEDS: ENOXAPARIN SODIUM INJ 30 MG/0.3 ML DISP.SYRIN SUBCUT SCH (12:10)
[2017-11-02] MEDS ORDERED: VALSARTAN 80 MG TABLET PO ONE (13:00)
[2017-11-02] MEDS ORDERED: ASPIRIN 81 MG TABLET, ENT COATED PO ONE (13:00)
[2017-11-02] MEDS: AMPICILLIN SODIUM/SULBACTAM NA 3 GM in NORMAL SALINE 100 ML IV SCH ×2 (20:10→23:56)
--- NOTE | 2017-11-02 22:15 | PDOC PROGRESS REPORT ---
Subjective Progress Note for:: 11/02/17 Subjective:: Patient was seen by the bedside off mechanical ventilation will be downgraded to medical floor telemetry the blood culture grew enterococcus raffinosus, urine culture grew Proteus Reason For Visit: SEPSIS,PNEUMONIA Physical Exam Vital Signs: Temp Pulse Resp BP Pulse Ox 100.0 F 60 19 137/80 H 99 11/02/17 20:20 11/02/17 18:00 11/02/17 20:20 11/02/17 20:20 11/02/17 20:20 Intake & Output 11/01/17 11/02/17 11/03/17 06:59 06:59 06:59 Intake Total 3021 2609 701 Output Total 0681 2100 955 Balance 1046 509 -254 Weight 66.8 kg 66.7 kg General appearance: PRESENT: no acute distress Eye exam: PRESENT: PERRLA Respiratory exam: PRESENT: clear to auscultation srikanth Cardiovascular exam: PRESENT: +S1, +S2 GI/Abdominal exam: PRESENT: soft Neurological exam: PRESENT: alert Results Laboratory Results: 11/02/17 03:46 11/02/17 03:46 11/02/17 11/02/17 11/02/17 03:46 03:46 05:10 WBC 7.3 RBC 3.61 L Hgb 10.1 L Hct 31.1 L MCV 86 MCH 27.9 MCHC 32.4 RDW 18.4 H Plt Count 141 L Seg Neutrophils % 65.4 Lymphocytes % 19.3 Monocytes % 13.7 H Eosinophils % 0.8 Basophils % 0.8 Absolute Neutrophils 4.8 Absolute Lymphocytes 1.4 Absolute Monocytes 1.0 Absolute Eosinophils 0.1 Absolute Basophils 0.1 Carbonic Acid 1.11 HCO3/H2CO3 Ratio 20:1 ABG pH 7.42 ABG pCO2 36.9 ABG pO2 70.2 L ABG HCO3 23.3 ABG O2 Saturation 94.5 ABG Base Excess -0.9 FiO2 2L Sodium 144.9 Potassium 3.3 L Chloride 116 H Carbon Dioxide 23 Anion Gap 6 BUN 6 L Creatinine 0.90 Est GFR ( Amer) > 60 Est GFR (Non-Af Amer) > 60 Glucose 83 Calcium 8.4 Magnesium 1.6 Total Bilirubin 0.4 AST 27 ALT 40 Alkaline Phosphatase 80 Total Protein 5.4 L Albumin 2.7 L 10/29/17 10/29/1718 15:19 15:19 15:19 Creatine Kinase 131 CK-MB (CK-2) 1.67 Troponin I 0.136 Cancelled 10/29/17 10/29/17 10/30/17 21:15 21:15 03:13 Creatine Kinase 144 172 H CK-MB (CK-2) 2.53 Troponin I 0.239 10/30/17 03:13 Creatine Kinase CK-MB (CK-2) 2.77 Troponin I 0.214 Impressions: KUB X-Ray 10/29/17 00:00 IMPRESSION: TIP OF THE NASOGASTRIC TUBE IN THE STOMACH. NO RADIOGRAPHIC EVIDENCE FOR ACUTE ABDOMINAL DISEASE. Head CT 10/29/17 11:39 IMPRESSION: Multiple old infarcts. No acute findings. EVIDENCE OF ACUTE STROKE: NO. Chest X-Ray 11/02/17 07:00 IMPRESSION: 1. Interval removal of endotracheal tube with increased bilateral airspace opacity. Assessment & Plan - Diagnosis (1) Acute respiratory failure Qualifiers: Respiratory failure complication: unspecified whether with hypoxia or hypercapnia Qualified Code(s): J96.00 - Acute respiratory failure, unspecified whether with hypoxia or hypercapnia Is this a current diagnosis for this admission?: Yes (2) Pneumonia Qualifiers: Pneumonia type: due to unspecified organism Laterality: left Lung location: lower lobe of lung Qualified Code(s): J18.1 - Lobar pneumonia, unspecified organism Is this a current diagnosis for this admission?: Yes (3) Septicemia due to enterococcus Is this a current diagnosis for this admission?: Yes Plan: The antibiotic is changed to Unasyn, will cover enterococcus and Proteus (4) Urinary tract infection due to Proteus Is this a current diagnosis for this admission?: Yes
[2017-11-02] MEDS: NORMAL SALINE 1000 ML 1,000 ML IV PRN (22:28)
[2017-11-02] MEDS: ATORVASTATIN CALCIUM 40 MG TABLET PO SCH (22:28)
[2017-11-03] MEDS: AMPICILLIN SODIUM/SULBACTAM NA 3 GM in NORMAL SALINE 100 ML IV SCH ×3 (05:01→17:57)
--- NOTE | 2017-11-03 08:41 | RADIOLOGY REPORT (SQ) ---
EXAM DESCRIPTION: CHEST SINGLE VIEW COMPLETED DATE/TIME: 11/03/2017 8:20 am REASON FOR STUDY: pneumonia COMPARISON: Chest films 10/29/2017, 10/31/2017, 11/01/2017, 11/02/2017 EXAM PARAMETERS: NUMBER OF VIEWS: One view. TECHNIQUE: Single frontal radiographic view of the chest acquired. RADIATION DOSE: NA LIMITATIONS: None. FINDINGS: LUNGS AND PLEURA: Trace bilateral pleural effusions are present left greater than right. Mild pulmonary vascular congestion. Mild perihilar pulmonary edema. No pneumothorax. No dense consolidation worrisome for pneumonia MEDIASTINUM AND HILAR STRUCTURES: No masses. Contour normal. HEART AND VASCULAR STRUCTURES: Heart normal in size. Radiopaque coronary stents are present BONES: No acute findings. HARDWARE: Left-sided dual lead pacemaker unchanged OTHER: No other significant finding. IMPRESSION: Trace pleural effusions with mild pulmonary vascular congestion and minimal perihilar pu lmonary edema. TECHNICAL DOCUMENTATION: JOB ID: [id number] [employer]- All Rights Reserved
[2017-11-03] MEDS: VALSARTAN 80 MG TABLET PO SCH (09:21)
[2017-11-03] MEDS: AMIODARONE HCL 200 MG TABLET PO SCH ×2 (09:22→21:36)
[2017-11-03] MEDS: ASPIRIN 81 MG TABLET, ENT COATED PO SCH (09:22)
[2017-11-03] MEDS: TAMSULOSIN HCL 0.4 MG CAP.SR.24H PO SCH (09:22)
[2017-11-03] MEDS: CARVEDILOL 12.5 MG TABLET PO SCH ×2 (09:22→21:37)
[2017-11-03] MEDS: ENOXAPARIN SODIUM INJ 30 MG/0.3 ML DISP.SYRIN SUBCUT SCH (09:23)
[2017-11-03] MEDS: LANSOPRAZOLE 30 MG TAB.RAP.DR PO SCH (09:23)
[2017-11-03] MEDS: FAMOTIDINE INJ/PF 20 MG/2 ML SDV IV SCH ×2 (09:53→21:37)
[2017-11-03 19:47] LABS: ABSOLUTE EOSINOPHILS # (AUTO) 0.1 10^3/uL (0.0-0.6); ABSOLUTE LYMPHOCYTES (AUTO) 0.8 10^3/uL (0.5-4.7); ABSOLUTE MONOCYTES (AUTO) 0.9 10^3/uL (0.1-1.4); ABSOLUTE NEUT (AUTO) 5.4 10^3/uL (1.7-8.2); BASOPHILS % (AUTO) 0.6 % (0-2); EOSINOPHILS % (AUTO) 1.2 % (0-6); HEMATOCRIT 29.4 % (37.9-51.0); HEMOGLOBIN 9.6 g/dL (13.5-17.0); LYMPHOCYTES % (AUTO) 11.4 % (13-45); MEAN CORPUSCULAR HEMOGLOBIN 28.1 pg (27.0-33.4); MEAN CORPUSCULAR HGB CONC 32.7 g/dL (32.0-36.0); MEAN CORPUSCULAR VOLUME 86 fl (80-97); MONOCYTES % (AUTO) 12.2 % (3-13); PLATELET COUNT 133 10^3/uL (150-450); RED BLOOD COUNT 3.42 10^6/uL (4.35-5.55); RED CELL DISTRIBUTION WIDTH 17.5 % (11.5-14.0); SEGMENTED NEUTROPHILS % (AUTO) 74.6 % (42-78); TOTAL CELLS COUNTED % (AUTO) 100 %; WHITE BLOOD COUNT 7.2 10^3/uL (4.0-10.5)
[2017-11-03 20:09] LABS: ALANINE AMINOTRANSFERASE 38 U/L (21-72); ALBUMIN 2.3 g/dL (3.5-5.0); ALKALINE PHOSPHATASE 68 U/L (38-126); ASPARTATE AMINO TRANSFERASE 22 U/L (17-59); BILIRUBIN,DIRECT 0.4 mg/dL (0.0-0.4); BILIRUBIN,TOTAL 0.4 mg/dL (0.2-1.3); BLOOD UREA NITROGEN 6 mg/dL (7-20); CALCIUM 8.2 mg/dL (8.4-10.2); GLUCOSE 104 mg/dL (75-110); POTASSIUM 3.4 mmol/L (3.6-5.0); TOTAL PROTEIN 4.9 g/dL (6.3-8.2)
[2017-11-03 20:17] LABS: CARBON DIOXIDE 26 mmol/L (22-30); CHLORIDE 113 mmol/L (98-107); SODIUM 141.5 mmol/L (137-145)
[2017-11-03 20:19] LABS: ANION GAP 3 (5-19)
--- NOTE | 2017-11-03 20:25 | PDOC PROGRESS REPORT ---
Subjective Progress Note for:: 11/03/17 Subjective:: Patient denying any discomfort. Currently stable with some nocturnal oxygenation by oxygen cannula. Currently alert and verbal. Patient seems to be doing better with gradual improvement. Pt is denying any chest arm or neck discomfort. Patient denying any other significant discomfort. Patient is maintaining sinus rhythm/atrial paced rhythm. Review of systems: Rest review of systems negative. Medications: Medications have been reviewed. Reason For Visit: SEPSIS,PNEUMONIA Physical Exam Vital Signs: Temp Pulse Resp BP Pulse Ox 98.6 F 60 17 152/83 H 100 11/03/17 15:12 11/03/17 15:12 11/03/17 15:12 11/03/17 15:12 11/03/17 15:12 Intake & Output 11/02/17 11/03/17 11/04/17 06:59 06:59 06:59 Intake Total 2609 1021 1403 Output Total 2100 1355 550 Balance 509 -334 853 Weight 66.7 kg 66.7 kg Exam: GENERAL: well-nourished and in no acute distress. Alert and oriented x3 HEAD: Atraumatic, normocephalic. EYES: Pupils equal round and reactive to light, extraocular movements intact, sclera anicteric, conjunctiva are normal. ENT: TMs normal, nares patent, oropharynx clear without exudates. Moist mucous membranes. No oral ulcerations or bleeding gums noted NECK: supple without lymphadenopathy. Trachea is central. No cervical or axillary lymphadenopathy noted. Carotids are 2+, JVD WNL LUNGS: Respiration seems nonlabored, no significant accessory muscle action noted. Breath sounds clear to auscultation bilaterally and equal noted. No wheezes rales or rhonchi noted. No significant dullness noted on percussion. CHEST: Palpation of the chest wall shows no significant chest wall tenderness. No other significant abnormalities noted. 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 ABDOMEN: Soft, no significant tenderness appreciated, normoactive bowel sounds. No guarding, no rebound. No rigidity noted . No masses appreciated. EXTREMITIES: Pedal pulses are 1-2+, no calf tenderness noted. No clubbing or cyanosis.trace to 1+ pedal edema noted. Status post AKA left lower extremity. NEUROLOGICAL: Focused neurological exam showed no significant neurologic deficit. Normal speech, no focal weakness appreciated. PSYCH: Normal mood, normal affect. Judgment and insight within normal limits. SKIN: No significant ecchymosis, rash, ulcerations or signs of pruritus noted. MUSCULOSKELETAL EXAM: No significant joint swelling noted. Results Laboratory Results: 11/03/17 19:40 11/03/17 19:40 11/03/17 11/03/17 19:40 19:40 WBC 7.2 RBC 3.42 L Hgb 9.6 L Hct 29.4 L MCV 86 MCH 28.1 MCHC 32.7 RDW 17.5 H Plt Count 133 L Seg Neutrophils % 74.6 Lymphocytes % 11.4 L Monocytes % 12.2 Eosinophils % 1.2 Basophils % 0.6 Absolute Neutrophils 5.4 Absolute Lymphocytes 0.8 Absolute Monocytes 0.9 Absolute Eosinophils 0.1 Absolute Basophils 0.0 Sodium 141.5 Potassium 3.4 L Chloride 113 H Carbon Dioxide 26 Anion Gap 3 L BUN 6 L Creatinine 0.88 Est GFR ( Amer) > 60 Est GFR (Non-Af Amer) > 60 Glucose 104 Calcium 8.2 L Total Bilirubin 0.4 AST 22 ALT 38 Alkaline Phosphatase 68 Total Protein 4.9 L Albumin 2.3 L 10/29/17 10/29/17 10/29/17 15:19 15:19 15:19 Creatine Kinase 131 CK-MB (CK-2) 1.67 Troponin I 0.136 Cancelled 10/29/17 10/29/17 10/30/17 21:15 21:15 03:13 Creatine Kinase 144 172 H CK-MB (CK-2) 2.53 Troponin I 0.239 10/30/17 03:13 Creatine Kinase CK-MB (CK-2) 2.77 Troponin I 0.214 EKG Comments: Telemetry strips shows atrial paced rhythm Impressions: KUB X-Ray 10/29/17 00:00 IMPRESSION: TIP OF THE NASOGASTRIC TUBE IN THE STOMACH. NO RADIOGRAPHIC EVIDENCE FOR ACUTE ABDOMINAL DISEASE. Head CT 10/29/17 11:39 IMPRESSION: Multiple old infarcts. No acute findings. EVIDENCE OF ACUTE STROKE: NO. Chest X-Ray 11/03/17 07:00 IMPRESSION: Trace pleural effusions with mild pulmonary vascular congestion and minimal perihilar pulmonary edema. Assessment & Plan - Diagnosis (1) Elevated troponin Is this a current diagnosis for this admission?: Yes (2) NSTEMI (non-ST elevated myocardial infarction) Is this a current diagnosis for this admission?: Yes (3) Coronary artery disease Qualifiers: Coronary Disease-Associated Artery/Lesion type: [place] artery [place] vs. transplanted heart: [place] heart Associated angina: angina presence unspecified Qualified Code(s): I25.10 - Atherosclerotic heart disease of [place] coronary artery without angina pectoris Is this a current diagnosis for this admission?: Yes (4) Acute respiratory failure Qualifiers: Is this a current diagnosis for this admission?: Yes (5) Lactic acidosis Is this a current diagnosis for this admission?: Yes (6) Pneumonia Qualifiers: Pneumonia type: due to unspecified organism Lung location: unspecified part of lung Is this a current diagnosis for this admission?: Yes (7) Hypertension Qualifiers: Hypertension type: essential hypertension Qualified Code(s): I10 - Essential (primary) hypertension Is this a current diagnosis for this admission?: Yes (8) Ventricular tachycardia Is this a current diagnosis for this admission?: No - Notes Notes: Patient has done well from cardiac standpoint. He seems to be on a stable regimen. Patient does have prior history of myocardial infarction and also coronary artery disease. He did sustain a non-STEMI this admission but felt mostly related to metabolic reason. Currently patient still somewhat intermittently confused. I believe patient would benefit from a stress test but this can be scheduled prior to discharge even as an outpatient. Patient medical regimen reviewed. It seems to be very satisfactory. Will discuss with Dr. Molina. - Time Time with patient: 15-25 minutes - CODE STATUS : was discussed, patient remains DO NOT RESUSCITATE. Surrogate decision-maker unchanged. Multiple medical problems were addressed. More than 50% of the time spent coordinating care, discussing management plans with involved caregivers. Management plans discussed with involved personnels. Medical decision making was of moderate to high complexity, patient's has multiple comorbidities. Medications reviewed and adjusted accordingly: Yes
--- NOTE | 2017-11-03 21:25 | PDOC PROGRESS REPORT ---
Subjective Progress Note for:: 11/03/17 Subjective:: Patient was seen by the bedside off mechanical ventilation will be downgraded to medical floor telemetry the blood culture grew enterococcus raffinosus, urine culture grew Proteus Reason For Visit: SEPSIS,PNEUMONIA Physical Exam Vital Signs: Temp Pulse Resp BP Pulse Ox 98.6 F 60 17 152/83 H 100 11/03/17 15:12 11/03/17 15:12 11/03/17 15:12 11/03/17 15:12 11/03/17 15:12 Intake & Output 11/02/17 11/03/17 11/04/17 06:59 06:59 06:59 Intake Total 2609 1021 1403 Output Total 2100 1355 550 Balance 509 -981 853 Weight 66.7 kg 66.7 kg General appearance: PRESENT: no acute distress Eye exam: PRESENT: PERRLA Respiratory exam: PRESENT: clear to auscultation srikanth Cardiovascular exam: PRESENT: +S1, +S2 GI/Abdominal exam: PRESENT: soft Neurological exam: PRESENT: alert Results Laboratory Results: 11/03/17 19:40 11/03/17 19:40 11/03/17 11/03/17 19:40 19:40 WBC 7.2 RBC 3.42 L Hgb 9.6 L Hct 29.4 L MCV 86 MCH 28.1 MCHC 32.7 RDW 17.5 H Plt Count 133 L Seg Neutrophils % 74.6 Lymphocytes % 11.4 L Monocytes % 12.2 Eosinophils % 1.2 Basophils % 0.6 Absolute Neutrophils 5.4 Absolute Lymphocytes 0.8 Absolute Monocytes 0.9 Absolute Eosinophils 0.1 Absolute Basophils 0.0 Sodium 141.5 Potassium 3.4 L Chloride 113 H Carbon Dioxide 26 Anion Gap 3 L BUN 6 L Creatinine 0.88 Est GFR ( Amer) > 60 Est GFR (Non-Af Amer) > 60 Glucose 104 Calcium 8.2 L Total Bilirubin 0.4 AST 22 ALT 38 Alkaline Phosphatase 68 Total Protein 4.9 L Albumin 2.3 L 10/29/17 10/29/17 10/29/17 15:19 15:19 15:19 Creatine Kinase 131 CK-MB (CK-2) 1.67 Troponin I 0.136 Cancelled 10/29/17 10/29/17 10/30/17 21:15 21:15 03:13 Creatine Kinase 144 172 H CK-MB (CK-2) 2.53 Troponin I 0.239 10/30/17 03:13 Creatine Kinase CK-MB (CK-2) 2.77 Troponin I 0.214 Impressions: KUB X-Ray 10/29/17 00:00 IMPRESSION: TIP OF THE NASOGASTRIC TUBE IN THE STOMACH. NO RADIOGRAPHIC EVIDENCE FOR ACUTE ABDOMINAL DISEASE. Head CT 10/29/17 11:39 IMPRESSION: Multiple old infarcts. No acute findings. EVIDENCE OF ACUTE STROKE: NO. Chest X-Ray 11/03/17 07:00 IMPRESSION: Trace pleural effusions with mild pulmonary vascular congestion and minimal perihilar pulmonary edema. Assessment & Plan - Diagnosis (1) Acute respiratory failure Qualifiers: Respiratory failure complication: unspecified whether with hypoxia or hypercapnia Qualified Code(s): J96.00 - Acute respiratory failure, unspecified whether with hypoxia or hypercapnia Is this a current diagnosis for this admission?: Yes (2) Pneumonia Qualifiers: Pneumonia type: due to unspecified organism Laterality: left Lung location: lower lobe of lung Qualified Code(s): J18.1 - Lobar pneumonia, unspecified organism Is this a current diagnosis for this admission?: Yes (3) Septicemia due to enterococcus Is this a current diagnosis for this admission?: Yes (4) Urinary tract infection due to Proteus Is this a current diagnosis for this admission?: Yes - Plan Summary Plan Summary: Continue treatment
[2017-11-03] MEDS: ATORVASTATIN CALCIUM 40 MG TABLET PO SCH (21:37)
[2017-11-04 04:33] LABS: ABSOLUTE EOSINOPHILS # (AUTO) 0.1 10^3/uL (0.0-0.6); ABSOLUTE LYMPHOCYTES (AUTO) 0.8 10^3/uL (0.5-4.7); ABSOLUTE NEUT (AUTO) 6.1 10^3/uL (1.7-8.2); BASOPHILS % (AUTO) 0.5 % (0-2); EOSINOPHILS % (AUTO) 0.9 % (0-6); HEMATOCRIT 28.9 % (37.9-51.0); HEMOGLOBIN 9.6 g/dL (13.5-17.0); LYMPHOCYTES % (AUTO) 10.4 % (13-45); MEAN CORPUSCULAR HEMOGLOBIN 28.6 pg (27.0-33.4); MEAN CORPUSCULAR HGB CONC 33.1 g/dL (32.0-36.0); MEAN CORPUSCULAR VOLUME 86 fl (80-97); PLATELET COUNT 134 10^3/uL (150-450); RED BLOOD COUNT 3.35 10^6/uL (4.35-5.55); RED CELL DISTRIBUTION WIDTH 18.1 % (11.5-14.0); SEGMENTED NEUTROPHILS % (AUTO) 75.2 % (42-78); TOTAL CELLS COUNTED % (AUTO) 100 %
[2017-11-04 04:52] LABS: ALANINE AMINOTRANSFERASE 29 U/L (21-72); ALBUMIN 2.5 g/dL (3.5-5.0); ALKALINE PHOSPHATASE 78 U/L (38-126); ANION GAP 6 (5-19); ASPARTATE AMINO TRANSFERASE 26 U/L (17-59); BILIRUBIN,DIRECT 0.2 mg/dL (0.0-0.4); BILIRUBIN,TOTAL 0.3 mg/dL (0.2-1.3); BLOOD UREA NITROGEN 7 mg/dL (7-20); CALCIUM 8.1 mg/dL (8.4-10.2); CARBON DIOXIDE 25 mmol/L (22-30); CHLORIDE 113 mmol/L (98-107); GLUCOSE 85 mg/dL (75-110); POTASSIUM 3.6 mmol/L (3.6-5.0); SODIUM 144.2 mmol/L (137-145); TOTAL PROTEIN 4.9 g/dL (6.3-8.2)
[2017-11-04] MEDS: AMPICILLIN SODIUM/SULBACTAM NA 3 GM in NORMAL SALINE 100 ML IV SCH ×5 (05:15→17:40)
[2017-11-04] MEDS: ENOXAPARIN SODIUM INJ 30 MG/0.3 ML DISP.SYRIN SUBCUT SCH (09:09)
[2017-11-04] MEDS: VALSARTAN 80 MG TABLET PO SCH (09:11)
[2017-11-04] MEDS: FAMOTIDINE INJ/PF 20 MG/2 ML SDV IV SCH ×2 (09:11→21:51)
[2017-11-04] MEDS: ASPIRIN 81 MG TABLET, ENT COATED PO SCH (09:11)
[2017-11-04] MEDS: AMIODARONE HCL 200 MG TABLET PO SCH ×2 (09:11→21:52)
[2017-11-04] MEDS: LANSOPRAZOLE 30 MG TAB.RAP.DR PO SCH (09:12)
[2017-11-04] MEDS: TAMSULOSIN HCL 0.4 MG CAP.SR.24H PO SCH (09:12)
[2017-11-04] MEDS: CARVEDILOL 12.5 MG TABLET PO SCH ×2 (09:12→21:52)
--- NOTE | 2017-11-04 09:16 | RADIOLOGY REPORT (SQ) ---
EXAM DESCRIPTION: CHEST SINGLE VIEW COMPLETED DATE/TIME: 11/04/2017 7:57 am REASON FOR STUDY: pneumonia COMPARISON: 11/03/2017. EXAM PARAMETERS: NUMBER OF VIEWS: One view. TECHNIQUE: Single frontal radiographic view of the chest acquired. RADIATION DOSE: NA LIMITATIONS: None. FINDINGS: LUNGS AND PLEURA: Increasing airspace disease in the right mid lung. Patchy airspace dise ase in the perihilar left lung. Pleural effusions, right greater than left. MEDIASTINUM AND HILAR STRUCTURES: No masses. Contour normal. HEART AND VASCULAR STRUCTURES: Cardiomegaly. BONES: No acute findings. HARDWARE: Pacemaker. OTHER: No other significant finding. IMPRESSION: INCREASING AIRSPACE DISEASE IN THE RIGHT LUNG CONCERNING FOR PNEUMONIA. TECHNICAL DOCUMENTATION: JOB ID: [id number] [employer]- All Rights Reserved
--- NOTE | 2017-11-04 11:20 | PDOC PROGRESS REPORT ---
Subjective Progress Note for:: 11/04/17 Subjective:: Patient denying any discomfort. Currently stable with some nocturnal oxygenation by oxygen cannula. Currently alert and verbal. Patient seems to be doing better with gradual improvement. Pt is denying any chest arm or neck discomfort. Patient denying any other significant discomfort. Patient is maintaining sinus rhythm/atrial paced rhythm. Chest x-ray shows worsening infiltrate/pneumonia. Review of systems: Rest review of systems negative. Medications: Medications have been reviewed. Reason For Visit: SEPSIS,PNEUMONIA Physical Exam Vital Signs: Temp Pulse Resp BP Pulse Ox 99.2 F 60 15 148/86 H 100 11/04/17 08:00 11/04/17 08:00 11/04/17 08:00 11/04/17 08:00 11/04/17 08:00 Intake & Output 11/03/17 11/04/17 11/05/17 06:59 06:59 06:59 Intake Total 1021 2693 Output Total 1355 550 Balance -334 2143 Weight 66.7 kg 66.6 kg Exam: GENERAL: well-nourished and in no acute distress. Alert and oriented x2, patient not oriented to place or time but is oriented to person. HEAD: Atraumatic, normocephalic. EYES: Pupils equal round and reactive to light, extraocular movements intact, sclera anicteric, conjunctiva are normal. ENT: TMs normal, nares patent, oropharynx clear without exudates. Moist mucous membranes. No oral ulcerations or bleeding gums noted NECK: supple without lymphadenopathy. Trachea is central. No cervical or axillary lymphadenopathy noted. Carotids are 2+, JVD WNL LUNGS: Respiration seems nonlabored, no significant accessory muscle action noted. Breath sounds clear to auscultation bilaterally and equal noted. No wheezes rales or rhonchi noted. No significant dullness noted on percussion. CHEST: Palpation of the chest wall shows no significant chest wall tenderness. No other significant abnormalities noted. HEART: [place] [employer]PER[employer], No PSH, 1/6 CYNDIE aortic area, 1/6 reyna systolic murmur mitral area, no rubs, no gallops. ABDOMEN: Soft, no significant tenderness appreciated, normoactive bowel sounds. No guarding, no rebound. No rigidity noted . No masses appreciated. EXTREMITIES: Pedal pulses are 1-2+, no calf tenderness noted. No clubbing or cyanosis.trace to 1+ pedal edema noted. 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 NEUROLOGICAL: Focused neurological exam showed no significant neurologic deficit. Normal speech, no focal weakness appreciated. PSYCH: Normal mood, normal affect. Judgment not checked. SKIN: No significant ecchymosis, rash, ulcerations or signs of pruritus noted. MUSCULOSKELETAL EXAM: No significant joint swelling noted. Results Laboratory Results: 11/04/17 04:21 11/04/17 04:21 11/03/17 11/03/17 11/04/17 19:40 19:40 04:21 WBC 7.2 8.0 RBC 3.42 L 3.35 L Hgb 9.6 L 9.6 L Hct 29.4 L 28.9 L MCV 86 86 MCH 28.1 28.6 MCHC 32.7 33.1 RDW 17.5 H 18.1 H Plt Count 133 L 134 L Seg Neutrophils % 74.6 75.2 Lymphocytes % 11.4 L 10.4 L Monocytes % 12.2 13.0 Eosinophils % 1.2 0.9 Basophils % 0.6 0.5 Absolute Neutrophils 5.4 6.1 Absolute Lymphocytes 0.8 0.8 Absolute Monocytes 0.9 1.0 Absolute Eosinophils 0.1 0.1 Absolute Basophils 0.0 0.0 Sodium 141.5 Potassium 3.4 L Chloride 113 H Carbon Dioxide 26 Anion Gap 3 L BUN 6 L Creatinine 0.88 Est GFR ( Amer) > 60 Est GFR (Non-Af Amer) > 60 Glucose 104 Calcium 8.2 L Total Bilirubin 0.4 AST 22 ALT 38 Alkaline Phosphatase 68 Total Protein 4.9 L Albumin 2.3 L 11/04/17 04:21 WBC RBC Hgb Hct MCV MCH MCHC RDW Plt Count Seg Neutrophils % Lymphocytes % Monocytes % Eosinophils % Basophils % Absolute Neutrophils Absolute Lymphocytes Absolute Monocytes Absolute Eosinophils Absolute Basophils Sodium 144.2 Potassium 3.6 Chloride 113 H Carbon Dioxide 25 Anion Gap 6 BUN 7 Creatinine 0.86 Est GFR ( Amer) > 60 Est GFR (Non-Af Amer) > 60 Glucose 85 Calcium 8.1 L Total Bilirubin 0.3 AST 26 ALT 29 Alkaline Phosphatase 78 Total Protein 4.9 L Albumin 2.5 L 10/29/17 10/29/17 10/29/17 15:19 15:19 15:19 Creatine Kinase 131 CK-MB (CK-2) 1.67 Troponin I 0.136 Cancelled 10/29/17 10/29/17 10/30/17 21:15 21:15 03:13 Creatine Kinase 144 172 H CK-MB (CK-2) 2.53 Troponin I 0.239 10/30/17 03:13 Creatine Kinase CK-MB (CK-2) 2.77 Troponin I 0.214 EKG Comments: Telemetry strip shows atrial paced rhythm. Impressions: KUB X-Ray 10/29/17 00:00 IMPRESSION: TIP OF THE NASOGASTRIC TUBE IN THE STOMACH. NO RADIOGRAPHIC EVIDENCE FOR ACUTE ABDOMINAL DISEASE. Head CT 10/29/17 11:39 IMPRESSION: Multiple old infarcts. No acute findings. EVIDENCE OF ACUTE STROKE: NO. Chest X-Ray 11/04/17 07:00 IMPRESSION: INCREASING AIRSPACE DISEASE IN THE RIGHT LUNG CONCERNING FOR PNEUMONIA. Assessment & Plan - Diagnosis (1) Elevated troponin Is this a current diagnosis for this admission?: Yes (2) NSTEMI (non-ST elevated myocardial infarction) Is this a current diagnosis for this admission?: Yes (3) Coronary artery disease Qualifiers: Coronary Disease-Associated Artery/Lesion type: [place] artery [place] vs. transplanted heart: [place] heart Associated angina: angina presence unspecified Qualified Code(s): I25.10 - Atherosclerotic heart disease of [place] coronary artery without angina pectoris Is this a current diagnosis for this admission?: Yes (4) Acute respiratory failure Qualifiers: Is this a current diagnosis for this admission?: Yes (5) Lactic acidosis Is this a current diagnosis for this admission?: Yes (6) Pneumonia Qualifiers: Pneumonia type: due to unspecified organism Lung location: unspecified part of lung Is this a current diagnosis for this admission?: Yes (7) Hypertension Qualifiers: Hypertension type: essential hypertension Qualified Code(s): I10 - Essential (primary) hypertension Is this a current diagnosis for this admission?: Yes (8) Ventricular tachycardia Is this a current diagnosis for this admission?: No - Notes Notes: Patient has been generally stable from cardiac standpoint. Currently being treated for pneumonia, respiratory failure. Currently on oxygen therapy. There has been no recurrence of ventricular tachycardia. We did try to discuss further management plan with the patient however patient does not have enough cognitive recognition at this point to consent to any stress testing. Patient currently DNR and may have some underlying dementia. Patient's medical regimen reviewed. Today no changes were made. We will continue to follow because of serious underlying cardiac issues in this patient until discharge. Will try optimize underlying therapy for coronary artery disease, cardiac dysrhythmia etc. - Time Time with patient: 15-25 minutes - CODE STATUS : was discussed, patient remains DO NOT RESUSCITATE. Surrogate decision-maker unchanged. Multiple medical problems were addressed. More than 50% of the time spent coordinating care, discussing management plans with involved caregivers. Management plans discussed with involved personnels. Medical decision making was of moderate to high complexity, patient's has multiple comorbidities. Medications reviewed and adjusted accordingly: Yes
[2017-11-04] MEDS ORDERED: AMPICILLIN SOD/SULBACTAM 3 GM VIAL ONE (17:19)
[2017-11-04] MEDS ORDERED: FUROSEMIDE INJ/PF 40 MG/4 ML SDV IV ONE (19:58)
--- NOTE | 2017-11-04 19:59 | PDOC PROGRESS REPORT ---
Subjective Progress Note for:: 11/04/17 Subjective:: The chest x-ray showed increasing airspace disease, felt to be due to pneumonia , this is probably volume from IV fluid, will discontinue IV fluid and give a bolus of Lasix Reason For Visit: SEPSIS,PNEUMONIA Physical Exam Vital Signs: Temp Pulse Resp BP Pulse Ox 99.5 F 59 L 16 108/62 100 11/04/17 16:00 11/04/17 16:00 11/04/17 16:00 11/04/17 16:00 11/04/17 16:00 Intake & Output 11/03/17 11/04/17 11/05/17 06:59 06:59 06:59 Intake Total 1021 2693 2990 Output Total 1355 550 400 Balance -334 2143 2590 Weight 66.7 kg 66.6 kg General appearance: PRESENT: no acute distress Eye exam: PRESENT: PERRLA Respiratory exam: PRESENT: rhonchi Cardiovascular exam: PRESENT: +S1, +S2 GI/Abdominal exam: PRESENT: soft Neurological exam: PRESENT: alert Results Laboratory Results: 11/04/17 04:21 11/04/17 04:21 11/03/17 11/04/17 11/04/17 19:40 04:21 04:21 WBC 8.0 RBC 3.35 L Hgb 9.6 L Hct 28.9 L MCV 86 MCH 28.6 MCHC 33.1 RDW 18.1 H Plt Count 134 L Seg Neutrophils % 75.2 Lymphocytes % 10.4 L Monocytes % 13.0 Eosinophils % 0.9 Basophils % 0.5 Absolute Neutrophils 6.1 Absolute Lymphocytes 0.8 Absolute Monocytes 1.0 Absolute Eosinophils 0.1 Absolute Basophils 0.0 Sodium 141.5 144.2 Potassium 3.4 L 3.6 Chloride 113 H 113 H Carbon Dioxide 26 25 Anion Gap 3 L 6 BUN 6 L 7 Creatinine 0.88 0.86 Est GFR ( Amer) > 60 > 60 Est GFR (Non-Af Amer) > 60 > 60 Glucose 104 85 Calcium 8.2 L 8.1 L Total Bilirubin 0.4 0.3 AST 22 26 ALT 38 29 Alkaline Phosphatase 68 78 Total Protein 4.9 L 4.9 L Albumin 2.3 L 2.5 L 10/29/17 10/29/17 10/29/17 15:19 15:19 15:19 Creatine Kinase 131 CK-MB (CK-2) 1.67 Troponin I 0.136 Cancelled 10/29/17 10/29/17 10/30/17 21:15 21:15 03:13 Creatine Kinase 144 172 H CK-MB (CK-2) 2.53 Troponin I 0.239 10/30/17 03:13 Creatine Kinase CK-MB (CK-2) 2.77 Troponin I 0.214 Impressions: KUB X-Ray 10/29/17 00:00 IMPRESSION: TIP OF THE NASOGASTRIC TUBE IN THE STOMACH. NO RADIOGRAPHIC EVIDENCE FOR ACUTE ABDOMINAL DISEASE. Head CT 10/29/17 11:39 IMPRESSION: Multiple old infarcts. No acute findings. EVIDENCE OF ACUTE STROKE: NO. Chest X-Ray 11/04/17 07:00 IMPRESSION: INCREASING AIRSPACE DISEASE IN THE RIGHT LUNG CONCERNING FOR PNEUMONIA. Assessment & Plan - Diagnosis (1) Acute respiratory failure Qualifiers: Respiratory failure complication: unspecified whether with hypoxia or hypercapnia Qualified Code(s): J96.00 - Acute respiratory failure, unspecified whether with hypoxia or hypercapnia Is this a current diagnosis for this admission?: Yes (2) Pneumonia Qualifiers: Pneumonia type: due to unspecified organism Laterality: left Lung location: lower lobe of lung Qualified Code(s): J18.1 - Lobar pneumonia, unspecified organism Is this a current diagnosis for this admission?: Yes (3) Septicemia due to enterococcus Is this a current diagnosis for this admission?: Yes (4) Urinary tract infection due to Proteus Is this a current diagnosis for this admission?: Yes
[2017-11-04] MEDS: ATORVASTATIN CALCIUM 40 MG TABLET PO SCH (21:52)
[2017-11-05] MEDS: AMPICILLIN SODIUM/SULBACTAM NA 3 GM in NORMAL SALINE 100 ML IV SCH ×5 (01:34→23:28)
--- NOTE | 2017-11-05 08:16 | RADIOLOGY REPORT (SQ) ---
EXAM DESCRIPTION: CHEST SINGLE VIEW COMPLETED DATE/TIME: 11/05/2017 7:58 am REASON FOR STUDY: pneumonia COMPARISON: 11/04/2017. EXAM PARAMETERS: NUMBER OF VIEWS: One view. TECHNIQUE: Single frontal radiographic view of the chest acquired. RADIATION DOSE: NA LIMITATIONS: None. FINDINGS: LUNGS AND PLEURA: Continued airspace disease in the mid right lung with right pleural effu kanika. Faint left perihilar markings less noticeable. MEDIASTINUM AND HILAR STRUCTURES: No masses. Contour normal. HEART AND VASCULAR STRUCTURES: Heart normal in size. Normal vasculature. BONES: No acute findings. HARDWARE: Defibrillator. OTHER: No other significant finding. IMPRESSION: LITTLE CHANGE IN APPEARANCE OF THE CHEST. CONTINUED AIRSPACE DISEASE IN THE RIGHT LUNG WITH RIGHT PLEURAL EFFUSION. TECHNICAL DOCUMENTATION: JOB ID: [id number] [employer] All Rights Reserved
[2017-11-05] MEDS: ENOXAPARIN SODIUM INJ 30 MG/0.3 ML DISP.SYRIN SUBCUT SCH (09:21)
[2017-11-05] MEDS: CARVEDILOL 12.5 MG TABLET PO SCH ×2 (09:22→21:15)
[2017-11-05] MEDS: ASPIRIN 81 MG TABLET, ENT COATED PO SCH (09:22)
[2017-11-05] MEDS: TAMSULOSIN HCL 0.4 MG CAP.SR.24H PO SCH (09:22)
[2017-11-05] MEDS: LANSOPRAZOLE 30 MG TAB.RAP.DR PO SCH (09:22)
[2017-11-05] MEDS: AMIODARONE HCL 200 MG TABLET PO SCH ×2 (09:22→21:15)
[2017-11-05] MEDS: VALSARTAN 80 MG TABLET PO SCH (09:23)
[2017-11-05] MEDS: FAMOTIDINE INJ/PF 20 MG/2 ML SDV IV SCH ×2 (09:23→21:14)
--- NOTE | 2017-11-05 12:58 | RADIOLOGY REPORT (SQ) ---
EXAM DESCRIPTION: CT CHEST WITHOUT COMPLETED DATE/TIME: 11/05/2017 11:40 am REASON FOR STUDY: PNEUMONIA COMPARISON: Chest x-ray dated 11/05/2017. Chest CT dated 05/13/2017. TECHNIQUE: CT scan performed of the chest without intravenous contrast. Images reviewed with lung, soft tissue and bone windows. Reconstructed coronal and sagittal MPR images reviewed. All images st ored on PACS. All CT scanners at this facility use dose modulation, iterative reconstruction, and/or weight based d osing when appropriate to reduce radiation dose to as low as reasonably achievable (ALARA). [facility]: Dose Right [facility]: CareDose [facility]: Dose Right [facility]: Teradose 4D [facility]: [employer] RADIATION DOSE: CT Rad equipment meets quality standard of care and radiation dose reduction techniq ues were employed. CTDIvol: 14.8 mGy. DLP: 589 mGy-cm. mGy. LIMITATIONS: No technical limitations. FINDINGS: LUNGS AND PLEURA: Bilateral pleural effusions, right greater than left. Consolidation kiah suzanna compressive atelectasis left lower lobe. Several rounded areas in the right lung secondary to pl eural fluid trapped in the major and minor fissure. Patchy parenchymal airspace disease in the right lower lobe. HILAR AND MEDIASTINAL STRUCTURES: No identified masses or abnormal nodes. No obvious aneurysm. HEART AND VASCULAR STRUCTURES: No aneurysm. No pericardial effusion. UPPER ABDOMEN: No significant findings. Limited exam. THYROID AND OTHER SOFT TISSUES: No masses. No adenopathy. BONES: No significant finding. HARDWARE: None in the chest. OTHER: No other significant findings. IMPRESSION: BILATERAL PLEURAL EFFUSIONS, RIGHT GREATER THAN LEFT. NODULAR AREAS IN THE RIGHT LUNG P RIMARILY DUE TO FLUID TRAPPED IN THE MAJOR AND MINOR FISSURE. THERE IS SCATTERED AIRSPACE DISEASE IN THE RIGHT LOWER LOBE. THERE IS CONSOLIDATION SECONDARY TO PNEUMONIA VERSUS COMPRESSIVE ATELECTASIS IN THE LEFT LUNG BASE. TECHNICAL DOCUMENTATION: JOB ID: [id number] Quality ID # [id number]: Final reports with documentation of one or more dose reduction techniques (e.g., Au tomated exposure control, adjustment of the mA and/or kV according to patient size, use of iterative reconstruction technique) 2010 [employer]- All Rights Reserved
--- NOTE | 2017-11-05 14:18 | PDOC PROGRESS REPORT ---
Subjective Progress Note for:: 11/05/17 Subjective:: Patient denying any discomfort. Currently stable with some nocturnal oxygenation by oxygen cannula. Currently alert and verbal. Patient seems to be doing better with gradual improvement. Pt is denying any chest arm or neck discomfort. Patient denying any other significant discomfort. Patient is maintaining sinus rhythm/atrial paced rhythm. Patient received IV Lasix. Currently stable. Review of systems: Rest review of systems negative. Medications: Medications have been reviewed. Reason For Visit: SEPSIS,PNEUMONIA Physical Exam Vital Signs: Temp Pulse Resp BP Pulse Ox 99.1 F 60 16 106/65 99 11/05/17 11:38 11/05/17 14:00 11/05/17 11:38 11/05/17 11:38 11/05/17 11:38 Intake & Output 11/04/17 11/05/17 11/06/17 06:59 06:59 06:59 Intake Total 2693 3390 Output Total 550 3250 Balance 2143 140 Weight 66.6 kg 69.1 kg Exam: GENERAL: well-nourished and in no acute distress. Alert and oriented x3. Patient was noted to be oriented 3 today. HEAD: Atraumatic, normocephalic. EYES: Pupils equal round and reactive to light, extraocular movements intact, sclera anicteric, conjunctiva are normal. ENT: TMs normal, nares patent, oropharynx clear without exudates. Moist mucous membranes. No oral ulcerations or bleeding gums noted NECK: supple without lymphadenopathy. Trachea is central. No cervical or axillary lymphadenopathy noted. Carotids are 2+, JVD WNL LUNGS: Respiration seems nonlabored, no significant accessory muscle action noted. Breath sounds clear to auscultation bilaterally and equal noted. No wheezes rales or rhonchi noted. No significant dullness noted on percussion. CHEST: Palpation of the chest wall shows no significant chest wall tenderness. No other significant abnormalities noted. 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 ABDOMEN: Soft, no significant tenderness appreciated, normoactive bowel sounds. No guarding, no rebound. No rigidity noted . No masses appreciated. EXTREMITIES: Pedal pulses are 1-2+, no calf tenderness noted. No clubbing or cyanosis. Above-knee amputation left side. Right side has trace pedal edema NEUROLOGICAL: Focused neurological exam showed no significant neurologic deficit. Normal speech, no focal weakness appreciated. PSYCH: Normal mood, normal affect. Judgment and insight possibly somewhat impaired SKIN: No significant ecchymosis, rash, ulcerations or signs of pruritus noted. MUSCULOSKELETAL EXAM: No significant joint swelling noted. Results Laboratory Results: 11/04/17 04:21 11/04/17 04:21 10/29/17 10/29/17 10/29/17 15:19 15:19 15:19 Creatine Kinase 131 CK-MB (CK-2) 1.67 Troponin I 0.136 Cancelled 10/29/17 10/29/17 10/30/17 21:15 21:15 03:13 Creatine Kinase 144 172 H CK-MB (CK-2) 2.53 Troponin I 0.239 10/30/17 03:13 Creatine Kinase CK-MB (CK-2) 2.77 Troponin I 0.214 Impressions: KUB X-Ray 10/29/17 00:00 IMPRESSION: TIP OF THE NASOGASTRIC TUBE IN THE STOMACH. NO RADIOGRAPHIC EVIDENCE FOR ACUTE ABDOMINAL DISEASE. Head CT 10/29/17 11:39 IMPRESSION: Multiple old infarcts. No acute findings. EVIDENCE OF ACUTE STROKE: NO. Chest CT 11/05/17 00:00 IMPRESSION: BILATERAL PLEURAL EFFUSIONS, RIGHT GREATER THAN LEFT. NODULAR AREAS IN THE RIGHT LUNG PRIMARILY DUE TO FLUID TRAPPED IN THE MAJOR AND MINOR FISSURE. THERE IS SCATTERED AIRSPACE DISEASE IN THE RIGHT LOWER LOBE. THERE IS CONSOLIDATION SECONDARY TO PNEUMONIA VERSUS COMPRESSIVE ATELECTASIS IN THE LEFT LUNG BASE. Chest X-Ray 11/05/17 07:00 IMPRESSION: LITTLE CHANGE IN APPEARANCE OF THE CHEST. CONTINUED AIRSPACE DISEASE IN THE RIGHT LUNG WITH RIGHT PLEURAL EFFUSION. Assessment & Plan - Diagnosis (1) Elevated troponin Is this a current diagnosis for this admission?: Yes (2) NSTEMI (non-ST elevated myocardial infarction) Is this a current diagnosis for this admission?: Yes (3) Coronary artery disease Qualifiers: Coronary Disease-Associated Artery/Lesion type: [place] artery [place] vs. transplanted heart: [place] heart Associated angina: angina presence unspecified Qualified Code(s): I25.10 - Atherosclerotic heart disease of [place] coronary artery without angina pectoris Is this a current diagnosis for this admission?: Yes (4) Acute respiratory failure Qualifiers: Is this a current diagnosis for this admission?: Yes (5) Lactic acidosis Is this a current diagnosis for this admission?: Yes (6) Pneumonia Qualifiers: Pneumonia type: due to unspecified organism Lung location: unspecified part of lung Is this a current diagnosis for this admission?: Yes (7) Hypertension Qualifiers: Hypertension type: essential hypertension Qualified Code(s): I10 - Essential (primary) hypertension Is this a current diagnosis for this admission?: Yes (8) Ventricular tachycardia Is this a current diagnosis for this admission?: No - Notes Notes: Chest x-ray and CT scan of the chest reviewed. It seems patient has CHF on top of pneumonia. Patient did get IV Lasix by Dr. Molina yesterday. Will start patient on some maintenance diuretics. Will go ahead and order a BNP level for monitoring purposes. Patient has otherwise has been stable from cardiac standpoint. Patient today offered no opinion as to his treatment plans. At this point will continue with conservative management since he has done well. CODE STATUS reviewed. He prefers to remain DNR at this point. Patient has been generally stable from cardiac standpoint. Currently being treated for pneumonia, respiratory failure. Currently on oxygen therapy. There has been no recurrence of ventricular tachycardia. However patient does have a defibrillator in place. Therefore is protected. Patient's medical regimen reviewed. Today no changes were made. We will continue to follow because of serious underlying cardiac issues in this patient until discharge. Will try optimize underlying therapy for coronary artery disease, cardiac dysrhythmia etc. currently however medical regimen seems satisfactory. - Time Time with patient: 15-25 minutes - CODE STATUS : was discussed, patient remains DO NOT RESUSCITATE. Surrogate decision-maker unchanged. Multiple medical problems were addressed. More than 50% of the time spent coordinating care, discussing management plans with involved caregivers. Management plans discussed with involved personnels. Medical decision making was of moderate to high complexity, patient's has multiple comorbidities. Medications reviewed and adjusted accordingly: Yes
--- NOTE | 2017-11-05 17:51 | PDOC PROGRESS REPORT ---
Subjective Progress Note for:: 11/05/17 Subjective:: Patient seen by the bedside CT chest without contrast showed bilateral pleural effusions right more than left. Consolidation versus compressive atelectasis left lower lobe. Several rounded areas the right lung secondary to pleural fluid trapped in the major and minor fissure. Patchy parenchyma airspace disease in the right lower lobe Reason For Visit: SEPSIS,PNEUMONIA Physical Exam Vital Signs: Temp Pulse Resp BP Pulse Ox 99.0 F 58 L 18 113/63 100 11/05/17 16:00 11/05/17 16:00 11/05/17 16:00 11/05/17 16:00 11/05/17 16:00 Intake & Output 11/04/17 11/05/17 11/06/17 06:59 06:59 06:59 Intake Total 2693 3390 Output Total 550 3250 Balance 2143 140 Weight 66.6 kg 69.1 kg General appearance: PRESENT: no acute distress Eye exam: PRESENT: PERRLA Respiratory exam: PRESENT: rales Cardiovascular exam: PRESENT: +S1, +S2 GI/Abdominal exam: PRESENT: soft Neurological exam: PRESENT: alert Results Laboratory Results: 11/04/17 04:21 11/04/17 04:21 10/29/17 10/29/17 10/29/17 15:19 15:19 15:19 Creatine Kinase 131 CK-MB (CK-2) 1.67 Troponin I 0.136 Cancelled NT-Pro-B Natriuret Pep 10/29/17 10/29/17 10/30/17 21:15 21:15 03:13 Creatine Kinase 144 172 H CK-MB (CK-2) 2.53 Troponin I 0.239 NT-Pro-B Natriuret Pep 10/30/17 11/05/17 03:13 15:00 Creatine Kinase CK-MB (CK-2) 2.77 Troponin I 0.214 NT-Pro-B Natriuret Pep [id number] H Impressions: KUB X-Ray 10/29/17 00:00 IMPRESSION: TIP OF THE NASOGASTRIC TUBE IN THE STOMACH. NO RADIOGRAPHIC EVIDENCE FOR ACUTE ABDOMINAL DISEASE. Head CT 10/29/17 11:39 IMPRESSION: Multiple old infarcts. No acute findings. EVIDENCE OF ACUTE STROKE: NO. Chest CT 11/05/17 00:00 IMPRESSION: BILATERAL PLEURAL EFFUSIONS, RIGHT GREATER THAN LEFT. NODULAR AREAS IN THE RIGHT LUNG PRIMARILY DUE TO FLUID TRAPPED IN THE MAJOR AND MINOR FISSURE. THERE IS SCATTERED AIRSPACE DISEASE IN THE RIGHT LOWER LOBE. THERE IS CONSOLIDATION SECONDARY TO PNEUMONIA VERSUS COMPRESSIVE ATELECTASIS IN THE LEFT LUNG BASE. Chest X-Ray 11/05/17 07:00 IMPRESSION: LITTLE CHANGE IN APPEARANCE OF THE CHEST. CONTINUED AIRSPACE DISEASE IN THE RIGHT LUNG WITH RIGHT PLEURAL EFFUSION. Assessment & Plan - Diagnosis (1) Acute respiratory failure Qualifiers: Respiratory failure complication: unspecified whether with hypoxia or hypercapnia Qualified Code(s): J96.00 - Acute respiratory failure, unspecified whether with hypoxia or hypercapnia Is this a current diagnosis for this admission?: Yes (2) Pneumonia Qualifiers: Pneumonia type: due to unspecified organism Laterality: left Lung location: lower lobe of lung Qualified Code(s): J18.1 - Lobar pneumonia, unspecified organism Is this a current diagnosis for this admission?: Yes Plan: He has right lung pneumonia, pleural effusion, require thoracentesis encourage incentive spirometry (3) Septicemia due to enterococcus Is this a current diagnosis for this admission?: Yes (4) Urinary tract infection due to Proteus Is this a current diagnosis for this admission?: Yes
[2017-11-05 18:17] LABS: INTERNATIONAL RATION (INR) 1.05; PROTHROMBIN TIME 14.5 SEC (11.4-15.4)
[2017-11-05 18:18] LABS: PARTIAL THROMBOPLASTIN TIME 37.7 SEC (23.5-35.8)
[2017-11-05 18:43] LABS: ALANINE AMINOTRANSFERASE 35 U/L (21-72); ALBUMIN 2.7 g/dL (3.5-5.0); ALKALINE PHOSPHATASE 84 U/L (38-126); ANION GAP 7 (5-19); ASPARTATE AMINO TRANSFERASE 23 U/L (17-59); BILIRUBIN,DIRECT 0.3 mg/dL (0.0-0.4); BILIRUBIN,TOTAL 0.3 mg/dL (0.2-1.3); BLOOD UREA NITROGEN 8 mg/dL (7-20); CALCIUM 8.4 mg/dL (8.4-10.2); CARBON DIOXIDE 29 mmol/L (22-30); CHLORIDE 105 mmol/L (98-107); GLUCOSE 125 mg/dL (75-110); LDH 370 U/L (313-618); TOTAL PROTEIN 5.5 g/dL (6.3-8.2)
[2017-11-05 18:45] LABS: POTASSIUM 2.9 mmol/L (3.6-5.0)
[2017-11-05] MEDS: POTASSIUM CHLORIDE 20 MEQ/50 ML RTU IV SCH ×2 (19:24→21:16)
[2017-11-05] MEDS: ACETAMINOPHEN 325 MG TABLET PO PRN (21:14)
[2017-11-05] MEDS: ATORVASTATIN CALCIUM 40 MG TABLET PO SCH (21:15)
[2017-11-06] MEDS ORDERED: POTASSI CL 20 MEQ/50 ML RIDER 20 MEQ/50 ML RTUPB IV ONE (00:59)
[2017-11-06] MEDS: POTASSIUM CHLORIDE 20 MEQ/50 ML RTU IV SCH (01:05)
[2017-11-06] MEDS: AMPICILLIN SODIUM/SULBACTAM NA 3 GM in NORMAL SALINE 100 ML IV SCH ×3 (05:10→16:52)
[2017-11-06 05:17] LABS: ALANINE AMINOTRANSFERASE 29 U/L (21-72); ALBUMIN 2.8 g/dL (3.5-5.0); ALKALINE PHOSPHATASE 89 U/L (38-126); ANION GAP 9 (5-19); ASPARTATE AMINO TRANSFERASE 23 U/L (17-59); BILIRUBIN,DIRECT 0.2 mg/dL (0.0-0.4); BILIRUBIN,TOTAL 0.3 mg/dL (0.2-1.3); BLOOD UREA NITROGEN 6 mg/dL (7-20); CALCIUM 8.4 mg/dL (8.4-10.2); CARBON DIOXIDE 27 mmol/L (22-30); CHLORIDE 109 mmol/L (98-107); GLUCOSE 95 mg/dL (75-110); LDH 414 U/L (313-618); POTASSIUM 3.6 mmol/L (3.6-5.0); SODIUM 144.8 mmol/L (137-145); TOTAL PROTEIN 5.4 g/dL (6.3-8.2)
[2017-11-06] MEDS: ENOXAPARIN SODIUM INJ 30 MG/0.3 ML DISP.SYRIN SUBCUT SCH (07:59)
[2017-11-06] MEDS: ASPIRIN 81 MG TABLET, ENT COATED PO SCH (07:59)
[2017-11-06] MEDS: AMIODARONE HCL 200 MG TABLET PO SCH ×2 (08:28→22:23)
[2017-11-06] MEDS: TAMSULOSIN HCL 0.4 MG CAP.SR.24H PO SCH (08:29)
[2017-11-06] MEDS: LANSOPRAZOLE 30 MG TAB.RAP.DR PO SCH (08:29)
[2017-11-06] MEDS: FAMOTIDINE INJ/PF 20 MG/2 ML SDV IV SCH ×2 (08:29→22:23)
[2017-11-06] MEDS: CARVEDILOL 12.5 MG TABLET PO SCH ×2 (08:29→22:23)
[2017-11-06] MEDS: TORSEMIDE 20 MG TABLET PO SCH (08:29)
[2017-11-06] MEDS: VALSARTAN 80 MG TABLET PO SCH (08:30)
--- NOTE | 2017-11-06 10:55 | RADIOLOGY REPORT (SQ) ---
EXAM DESCRIPTION: CHEST SINGLE VIEW COMPLETED DATE/TIME: 11/06/2017 8:49 am REASON FOR STUDY: pneumonia COMPARISON: 11/05/2017. EXAM PARAMETERS: NUMBER OF VIEWS: One view. TECHNIQUE: Single frontal radiographic view of the chest acquired. RADIATION DOSE: NA LIMITATIONS: None. FINDINGS: LUNGS AND PLEURA: Again seen are vague areas of airspace disease in both lungs. Bilateral pleural effusions, right greater than left. MEDIASTINUM AND HILAR STRUCTURES: No masses. Contour normal. HEART AND VASCULAR STRUCTURES: Mild cardiomegaly. BONES: No acute findings. HARDWARE: Defibrillator. OTHER: No other significant finding. IMPRESSION: NO CHANGE IN APPEARANCE OF THE CHEST. TECHNICAL DOCUMENTATION: JOB ID: [id number] [employer]- All Rights Reserved
--- NOTE | 2017-11-06 11:36 | RADIOLOGY REPORT (SQ) ---
EXAM DESCRIPTION: CHEST SINGLE VIEW COMPLETED DATE/TIME: 11/06/2017 11:24 am REASON FOR STUDY: S/P LEFT THORACENTESIS COMPARISON: 11/06/2017 at 0807 hours. EXAM PARAMETERS: NUMBER OF VIEWS: One view. TECHNIQUE: Single frontal radiographic view of the chest acquired. RADIATION DOSE: NA LIMITATIONS: None. FINDINGS: LUNGS AND PLEURA: Decrease in the left pleural effusion following thoracentesis. Improved aeration. No pneumothorax. Right side pleural effusion and airspace opacities unchanged. MEDIASTINUM AND HILAR STRUCTURES: No masses. Contour normal. HEART AND VASCULAR STRUCTURES: Heart normal in size. Normal vasculature. BONES: No acute findings. HARDWARE: None in the chest. OTHER: No other significant finding. IMPRESSION: DECREASE IN THE LEFT PLEURAL EFFUSION FOLLOWING THORACENTESIS. NO PNEUMOTHORAX. NO MOI NGE ON THE RIGHT SIDE. TECHNICAL DOCUMENTATION: JOB ID: [id number] [employer]- All Rights Reserved
--- NOTE | 2017-11-06 11:38 | RADIOLOGY REPORT (SQ) ---
EXAM DESCRIPTION: U/S THORACENTESIS WITH IMAGING COMPLETED DATE/TIME: 11/06/2017 11:13 am REASON FOR STUDY: pleural effusion COMPARISON: None. LIMITATIONS: None. PROCEDURE: Procedure, risks, benefit, and alternative explained to patient who then gave written con sent. The posterior left chest wall was marked using ultrasound guidance. A time-out was called for correct marking verification. Chest prepped and draped using sterile technique. Local anesthesia ac hieved using 10 ml of 1% lidocaine injection. A 5fr needle/catheter set was introduced into the left pleural space. Fluid was aspirated. The catheter was removed and the entry site was covered with s terile bandage. No immediate complications noted. Images acquired during the procedure were stored on PACS. FINDINGS: ENTRY SITE: Posterior left chest. FLUID VOLUME: 850 mL. FLUID ANALYSIS: Clear yellow color. OTHER: Fluid sent to the lab for testing. IMPRESSION: SUCCESSFUL THORACENTESIS USING ULTRASOUND GUIDANCE. COMMENT: Patient medication list reviewed: Yes- Quality ID# [id number]:Eligible professional attests to doc umenting in the medical record they obtained, updated, or reviewed the patient's current medications. Quality ID #[id number]: Final reports for procedures using fluoroscopy that document radiation exposure malissa gerry, or exposure time and number of fluorographic images (if radiation exposure indices are not avail able) TECHNICAL DOCUMENTATION: JOB ID: [id number] [employer]- All Rights Reserved
[2017-11-06 12:29] LABS: FLUID TYPE PLEURAL
[2017-11-06 12:30] LABS: FLUID APPEARANCE HAZY; FLUID COLOR YELLOW; FLUID SOURCE LUNG; FLUID VISCOSITY LIQUID
--- NOTE | 2017-11-06 13:37 | RADIOLOGY REPORT (SQ) ---
EXAM DESCRIPTION: CHEST SINGLE VIEW COMPLETED DATE/TIME: 11/06/2017 1:27 pm REASON FOR STUDY: 2 HOURS S/P LEFT THORACENTESIS COMPARISON: 11/06/2017 at 1118 hours. EXAM PARAMETERS: NUMBER OF VIEWS: One view. TECHNIQUE: Single frontal radiographic view of the chest acquired. RADIATION DOSE: NA LIMITATIONS: None. FINDINGS: LUNGS AND PLEURA: No pneumothorax 2 hours after thoracentesis. Right pleural effusion and airspace disease unchanged. MEDIASTINUM AND HILAR STRUCTURES: No masses. Contour normal. HEART AND VASCULAR STRUCTURES: Heart normal in size. Normal vasculature. BONES: No acute findings. HARDWARE: Defibrillator. OTHER: No other significant finding. IMPRESSION: NO CHANGE IN APPEARANCE OF THE CHEST. NO PNEUMOTHORAX POST THORACENTESIS. TECHNICAL DOCUMENTATION: JOB ID: [id number] [employer] All Rights Reserved
--- NOTE | 2017-11-06 19:38 | PDOC PROGRESS REPORT ---
Subjective Progress Note for:: 11/06/17 Subjective:: Patient denying any discomfort. Currently stable with some nocturnal oxygenation by oxygen cannula. Currently alert and verbal. Patient seems to be doing better with gradual improvement. Pt is denying any chest arm or neck discomfort. Patient denying any other significant discomfort. Patient had thoracentesis yesterday evening. Patient is maintaining sinus rhythm/atrial paced rhythm. BNP level came back elevated at over 10,000. Review of systems: Rest review of systems negative. Medications: Medications have been reviewed. Reason For Visit: SEPSIS,PNEUMONIA Physical Exam Vital Signs: Temp Pulse Resp BP Pulse Ox 98.4 F 60 17 133/80 H 100 11/06/17 15:06 11/06/17 15:06 11/06/17 15:06 11/06/17 15:06 11/06/17 15:06 Intake & Output 11/05/17 11/06/17 11/07/17 06:59 06:59 06:59 Intake Total 3390 3200 702 Output Total 3250 150 Balance 140 3050 702 Weight 69.1 kg 66.9 kg Exam: GENERAL: well-nourished and in no acute distress. Alert and oriented x3 HEAD: Atraumatic, normocephalic. EYES: Pupils equal round and reactive to light, extraocular movements intact, sclera anicteric, conjunctiva are normal. ENT: TMs normal, nares patent, oropharynx clear without exudates. Moist mucous membranes. No oral ulcerations or bleeding gums noted NECK: supple without lymphadenopathy. Trachea is central. No cervical or axillary lymphadenopathy noted. Carotids are 2+, JVD WNL LUNGS: Respiration seems nonlabored, no significant accessory muscle action noted. Bibasilar fine crackles noted right more than left. No wheezing noted. No significant dullness noted on percussion. CHEST: Palpation of the chest wall shows no significant chest wall tenderness. No other significant abnormalities noted. HEART: [place] CLASSIF[employer], No PSH, 1/6 CYNDIE aortic area, 1/6 reyna systolic murmur mitral area, no rubs, no gallops. ABDOMEN: Soft, no significant tenderness appreciated, normoactive bowel sounds. No guarding, no rebound. No rigidity noted . No masses appreciated. EXTREMITIES: Pedal pulses are 1-2+, no calf tenderness noted. No clubbing or cyanosis. Negative edema. 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 NEUROLOGICAL: Focused neurological exam showed no significant neurologic deficit. Normal speech, no focal weakness appreciated. PSYCH: Normal mood, normal affect. Judgment and insight within normal limits. SKIN: No significant ecchymosis, rash, ulcerations or signs of pruritus noted. MUSCULOSKELETAL EXAM: No significant joint swelling noted. Results Laboratory Results: 11/04/17 04:21 11/06/17 04:09 11/06/17 11/06/17 04:09 11:05 Sodium 144.8 Potassium 3.6 Chloride 109 H Carbon Dioxide 27 Anion Gap 9 BUN 6 L Creatinine 0.89 Est GFR ( Amer) > 60 Est GFR (Non-Af Amer) > 60 Glucose 95 Calcium 8.4 Total Bilirubin 0.3 AST 23 ALT 29 Alkaline Phosphatase 89 Total Protein 5.4 L Albumin 2.8 L Fluid Type PLEURAL Fluid Source LUNG Fluid Color YELLOW Fluid Appearance HAZY Fluid Viscosity LIQUID Fluid WBC 457 Fluid RBC 96 10/29/17 10/29/17 10/29/17 15:19 15:19 15:19 Creatine Kinase 131 CK-MB (CK-2) 1.67 Troponin I 0.136 Cancelled NT-Pro-B Natriuret Pep 10/29/17 10/29/17 10/30/17 21:15 21:15 03:13 Creatine Kinase 144 172 H CK-MB (CK-2) 2.53 Troponin I 0.239 NT-Pro-B Natriuret Pep 10/30/17 11/05/17 03:13 15:00 Creatine Kinase CK-MB (CK-2) 2.77 Troponin I 0.214 NT-Pro-B Natriuret Pep 59420 H EKG Comments: Telemetry strips shows mainly atrial paced rhythm. Impressions: KUB X-Ray 10/29/17 00:00 IMPRESSION: TIP OF THE NASOGASTRIC TUBE IN THE STOMACH. NO RADIOGRAPHIC EVIDENCE FOR ACUTE ABDOMINAL DISEASE. Head CT 10/29/17 11:39 IMPRESSION: Multiple old infarcts. No acute findings. EVIDENCE OF ACUTE STROKE: NO. Chest CT 11/05/17 00:00 IMPRESSION: BILATERAL PLEURAL EFFUSIONS, RIGHT GREATER THAN LEFT. NODULAR AREAS IN THE RIGHT LUNG PRIMARILY DUE TO FLUID TRAPPED IN THE MAJOR AND MINOR FISSURE. THERE IS SCATTERED AIRSPACE DISEASE IN THE RIGHT LOWER LOBE. THERE IS CONSOLIDATION SECONDARY TO PNEUMONIA VERSUS COMPRESSIVE ATELECTASIS IN THE LEFT LUNG BASE. Thoracentesis Ultrasound 11/05/17 17:51 IMPRESSION: SUCCESSFUL THORACENTESIS USING ULTRASOUND GUIDANCE. Chest X-Ray 11/06/17 07:00 IMPRESSION: NO CHANGE IN APPEARANCE OF THE CHEST. Assessment & Plan - Diagnosis (1) Congestive heart failure Qualifiers: Heart failure type: combined systolic and diastolic Heart failure chronicity: acute on chronic Qualified Code(s): I50.43 - Acute on chronic combined systolic (congestive) and diastolic (congestive) heart failure Is this a current diagnosis for this admission?: Yes (2) Elevated troponin Is this a current diagnosis for this admission?: Yes (3) NSTEMI (non-ST elevated myocardial infarction) Is this a current diagnosis for this admission?: Yes (4) Coronary artery disease Qualifiers: Coronary Disease-Associated Artery/Lesion type: [place] artery [place] vs. transplanted heart: [place] heart Associated angina: angina presence unspecified Qualified Code(s): I25.10 - Atherosclerotic heart disease of [place] coronary artery without angina pectoris Is this a current diagnosis for this admission?: Yes (5) Acute respiratory failure Qualifiers: Is this a current diagnosis for this admission?: Yes (6) Lactic acidosis Is this a current diagnosis for this admission?: Yes (7) Pneumonia Qualifiers: Pneumonia type: due to unspecified organism Lung location: unspecified part of lung Is this a current diagnosis for this admission?: Yes (8) Hypertension Qualifiers: Hypertension type: essential hypertension Qualified Code(s): I10 - Essential (primary) hypertension Is this a current diagnosis for this admission?: Yes (9) Ventricular tachycardia Is this a current diagnosis for this admission?: No - Notes Notes: Congestive heart failure: Related to systolic and diastolic dysfunction. Continue baseline diuretic therapy. Patient seems to be under good regimen for his CHF but to optimize it further. Thoracentesis fluid results are pending. Troponin I elevation: Alvin to be most likely from metabolic reasons rather than acute coronary syndrome. Non-STEMI: Most likely related to supply demand mismatch and metabolic reasons rather than ACS. Coronary artery disease: Patient seems symptomatically stable. Continue with current regimen. Acute respiratory failure: Resolved. Was due to combination of CHF and pneumonia. Lactic acidosis: Resolved. Ventricular tachycardia: There has been no recurrence. Hypertension: Currently stable. - Time Time with patient: 15-25 minutes - CODE STATUS : was discussed, patient remains DO NOT RESUSCITATE. Surrogate decision-maker unchanged. Multiple medical problems were addressed. More than 50% of the time spent coordinating care, discussing management plans with involved caregivers. Management plans discussed with involved personnels. Medical decision making was of moderate to high complexity, patient's has multiple comorbidities. Medications reviewed and adjusted accordingly: Yes
--- NOTE | 2017-11-06 21:14 | PDOC PROGRESS REPORT ---
Subjective Progress Note for:: 11/06/17 Subjective:: Patient was seen by the bedside, he had diagnostic thoracentesis today 850 ML of pleural fluid was removed from the left pleural space not sure if it is transudate or exudate, result pending, Reason For Visit: SEPSIS,PNEUMONIA Physical Exam Vital Signs: Temp Pulse Resp BP Pulse Ox 98.8 F 60 15 134/77 H 99 11/06/17 19:23 11/06/17 19:23 11/06/17 19:23 11/06/17 19:23 11/06/17 19:23 Intake & Output 11/05/17 11/06/17 11/07/17 06:59 06:59 06:59 Intake Total 3390 3200 702 Output Total 3250 150 Balance 140 3050 702 Weight 69.1 kg 66.9 kg General appearance: PRESENT: no acute distress Eye exam: PRESENT: PERRLA Respiratory exam: PRESENT: clear to auscultation srikanth Cardiovascular exam: PRESENT: +S1, +S2 GI/Abdominal exam: PRESENT: soft Neurological exam: PRESENT: alert Results Laboratory Results: 11/04/17 04:21 11/06/17 04:09 11/06/17 11/06/17 04:09 11:05 Sodium 144.8 Potassium 3.6 Chloride 109 H Carbon Dioxide 27 Anion Gap 9 BUN 6 L Creatinine 0.89 Est GFR ( Amer) > 60 Est GFR (Non-Af Amer) > 60 Glucose 95 Calcium 8.4 Total Bilirubin 0.3 AST 23 ALT 29 Alkaline Phosphatase 89 Total Protein 5.4 L Albumin 2.8 L Fluid Type PLEURAL Fluid Source LUNG Fluid Color YELLOW Fluid Appearance HAZY Fluid Viscosity LIQUID Fluid WBC 457 Fluid RBC 96 10/29/17 10/29/17 10/29/17 15:19 15:19 15:19 Creatine Kinase 131 CK-MB (CK-2) 1.67 Troponin I 0.136 Cancelled NT-Pro-B Natriuret Pep 10/29/17 10/29/17 10/30/17 21:15 21:15 03:13 Creatine Kinase 144 172 H CK-MB (CK-2) 2.53 Troponin I 0.239 NT-Pro-B Natriuret Pep 10/30/17 11/05/17 03:13 15:00 Creatine Kinase CK-MB (CK-2) 2.77 Troponin I 0.214 NT-Pro-B Natriuret Pep [id number] H Impressions: KUB X-Ray 10/29/17 00:00 IMPRESSION: TIP OF THE NASOGASTRIC TUBE IN THE STOMACH. NO RADIOGRAPHIC EVIDENCE FOR ACUTE ABDOMINAL DISEASE. Head CT 10/29/17 11:39 IMPRESSION: Multiple old infarcts. No acute findings. EVIDENCE OF ACUTE STROKE: NO. Chest CT 11/05/17 00:00 IMPRESSION: BILATERAL PLEURAL EFFUSIONS, RIGHT GREATER THAN LEFT. NODULAR AREAS IN THE RIGHT LUNG PRIMARILY DUE TO FLUID TRAPPED IN THE MAJOR AND MINOR FISSURE. THERE IS SCATTERED AIRSPACE DISEASE IN THE RIGHT LOWER LOBE. THERE IS CONSOLIDATION SECONDARY TO PNEUMONIA VERSUS COMPRESSIVE ATELECTASIS IN THE LEFT LUNG BASE. Thoracentesis Ultrasound 11/05/17 17:51 IMPRESSION: SUCCESSFUL THORACENTESIS USING ULTRASOUND GUIDANCE. Chest X-Ray 11/06/17 07:00 IMPRESSION: NO CHANGE IN APPEARANCE OF THE CHEST. Assessment & Plan - Diagnosis (1) Acute respiratory failure Qualifiers: Respiratory failure complication: unspecified whether with hypoxia or hypercapnia Qualified Code(s): J96.00 - Acute respiratory failure, unspecified whether with hypoxia or hypercapnia Is this a current diagnosis for this admission?: Yes (2) Pneumonia Qualifiers: Pneumonia type: due to unspecified organism Laterality: left Lung location: lower lobe of lung Qualified Code(s): J18.1 - Lobar pneumonia, unspecified organism Is this a current diagnosis for this admission?: Yes (3) Septicemia due to enterococcus Is this a current diagnosis for this admission?: Yes (4) Urinary tract infection due to Proteus Is this a current diagnosis for this admission?: Yes (5) Pleural effusion on left Is this a current diagnosis for this admission?: Yes Plan: Status post thoracentesis
[2017-11-06] MEDS: ATORVASTATIN CALCIUM 40 MG TABLET PO SCH (22:23)
[2017-11-07] MEDS: AMPICILLIN SODIUM/SULBACTAM NA 3 GM in NORMAL SALINE 100 ML IV SCH ×4 (00:06→16:44)
--- NOTE | 2017-11-07 08:26 | RADIOLOGY REPORT (SQ) ---
EXAM DESCRIPTION: CHEST SINGLE VIEW COMPLETED DATE/TIME: 11/07/2017 8:18 am REASON FOR STUDY: pneumonia COMPARISON: 11/06/2017. EXAM PARAMETERS: NUMBER OF VIEWS: One view. TECHNIQUE: Single frontal radiographic view of the chest acquired. RADIATION DOSE: NA LIMITATIONS: None. FINDINGS: LUNGS AND PLEURA: Persistent right basilar density with pleural effusion. Improved aerati on in the left base with residual density in the retrocardiac lung. No pneumothorax. MEDIASTINUM AND HILAR STRUCTURES: No masses. Contour normal. HEART AND VASCULAR STRUCTURES: Heart normal in size. Normal vasculature. BONES: No acute findings. HARDWARE: Pacemaker. OTHER: No other significant finding. IMPRESSION: IMPROVED APPEARANCE OF THE LEFT LUNG BASE. LITTLE CHANGE ON THE RIGHT. TECHNICAL DOCUMENTATION: JOB ID: [id number] [employer]- All Rights Reserved
[2017-11-07] MEDS: CARVEDILOL 12.5 MG TABLET PO SCH ×2 (09:15→22:45)
[2017-11-07] MEDS: AMIODARONE HCL 200 MG TABLET PO SCH ×2 (09:15→22:46)
[2017-11-07] MEDS: ASPIRIN 81 MG TABLET, ENT COATED PO SCH (09:15)
[2017-11-07] MEDS: LANSOPRAZOLE 30 MG TAB.RAP.DR PO SCH (09:15)
[2017-11-07] MEDS: ENOXAPARIN SODIUM INJ 30 MG/0.3 ML DISP.SYRIN SUBCUT SCH (09:15)
[2017-11-07] MEDS: TORSEMIDE 20 MG TABLET PO SCH (09:16)
[2017-11-07] MEDS: VALSARTAN 80 MG TABLET PO SCH (09:16)
[2017-11-07] MEDS: TAMSULOSIN HCL 0.4 MG CAP.SR.24H PO SCH (09:16)
[2017-11-07] MEDS: FAMOTIDINE INJ/PF 20 MG/2 ML SDV IV SCH ×2 (09:16→22:45)
--- NOTE | 2017-11-07 17:28 | PDOC PROGRESS REPORT ---
Subjective Progress Note for:: 11/07/17 Subjective:: The pleural effusion is consistent with transudate other than exudate, the urine was positive for cocaine and marijuana . Patient denied using cocaine or marijuana. Reason For Visit: SEPSIS,PNEUMONIA Physical Exam Vital Signs: Temp Pulse Resp BP Pulse Ox 99.1 F 61 18 128/72 H 98 11/07/17 15:10 11/07/17 15:10 11/07/17 15:10 11/07/17 15:10 11/07/17 15:10 Intake & Output 11/06/17 11/07/17 11/08/17 06:59 06:59 06:59 Intake Total 3200 1312 821 Output Total 150 900 900 Balance 3050 412 -79 Weight 66.9 kg 63.7 kg General appearance: PRESENT: no acute distress Eye exam: PRESENT: PERRLA Respiratory exam: PRESENT: clear to auscultation srikanth Cardiovascular exam: PRESENT: +S1, +S2 GI/Abdominal exam: PRESENT: soft Neurological exam: PRESENT: alert Results Laboratory Results: 11/04/17 04:21 11/06/17 04:09 11/06/17 11/06/17 11/06/17 11:05 11:05 11:05 Fluid Glucose 146 Fluid Total Protein Fluid LDH 77 Fluid Amylase 18 11/06/17 11:05 Fluid Glucose Fluid Total Protein 1.4 Fluid LDH Fluid Amylase 10/29/17 10/29/17 10/29/17 15:19 15:19 15:19 Creatine Kinase 131 CK-MB (CK-2) 1.67 Troponin I 0.136 Cancelled NT-Pro-B Natriuret Pep 10/29/17 10/29/17 10/30/17 21:15 21:15 03:13 Creatine Kinase 144 172 H CK-MB (CK-2) 2.53 Troponin I 0.239 NT-Pro-B Natriuret Pep 10/30/17 11/05/17 03:13 15:00 Creatine Kinase CK-MB (CK-2) 2.77 Troponin I 0.214 NT-Pro-B Natriuret Pep [id number] H Impressions: KUB X-Ray 10/29/17 00:00 IMPRESSION: TIP OF THE NASOGASTRIC TUBE IN THE STOMACH. NO RADIOGRAPHIC EVIDENCE FOR ACUTE ABDOMINAL DISEASE. Head CT 10/29/17 11:39 IMPRESSION: Multiple old infarcts. No acute findings. EVIDENCE OF ACUTE STROKE: NO. Chest CT 11/05/17 00:00 IMPRESSION: BILATERAL PLEURAL EFFUSIONS, RIGHT GREATER THAN LEFT. NODULAR AREAS IN THE RIGHT LUNG PRIMARILY DUE TO FLUID TRAPPED IN THE MAJOR AND MINOR FISSURE. THERE IS SCATTERED AIRSPACE DISEASE IN THE RIGHT LOWER LOBE. THERE IS CONSOLIDATION SECONDARY TO PNEUMONIA VERSUS COMPRESSIVE ATELECTASIS IN THE LEFT LUNG BASE. Thoracentesis Ultrasound 11/05/17 17:51 IMPRESSION: SUCCESSFUL THORACENTESIS USING ULTRASOUND GUIDANCE. Chest X-Ray 11/07/17 07:00 IMPRESSION: IMPROVED APPEARANCE OF THE LEFT LUNG BASE. LITTLE CHANGE ON THE RIGHT. Assessment & Plan - Diagnosis (1) Acute respiratory failure Qualifiers: Respiratory failure complication: unspecified whether with hypoxia or hypercapnia Qualified Code(s): J96.00 - Acute respiratory failure, unspecified whether with hypoxia or hypercapnia Is this a current diagnosis for this admission?: Yes (2) Pneumonia Qualifiers: Pneumonia type: due to unspecified organism Laterality: left Lung location: lower lobe of lung Qualified Code(s): J18.1 - Lobar pneumonia, unspecified organism Is this a current diagnosis for this admission?: Yes (3) Septicemia due to enterococcus Is this a current diagnosis for this admission?: Yes (4) Urinary tract infection due to Proteus Is this a current diagnosis for this admission?: Yes (5) Pleural effusion on left Is this a current diagnosis for this admission?: Yes (6) Acute systolic (congestive) heart failure Is this a current diagnosis for this admission?: Yes Plan: The pleural fluid is consistent with transudate suggesting this is acute CHF rather than pneumonia, we start patient on anti-CHF therapy
[2017-11-07] MEDS: SACUBITRIL/VALSARTAN 49 MG/51 MG TABLET PO SCH (22:43)
[2017-11-07] MEDS: ATORVASTATIN CALCIUM 40 MG TABLET PO SCH (22:44)
[2017-11-08] MEDS: ACETAMINOPHEN 325 MG TABLET PO PRN (00:04)
[2017-11-08] MEDS: AMPICILLIN SODIUM/SULBACTAM NA 3 GM in NORMAL SALINE 100 ML IV SCH ×4 (00:05→18:18)
--- NOTE | 2017-11-08 09:51 | RADIOLOGY REPORT (SQ) ---
EXAM DESCRIPTION: CHEST SINGLE VIEW COMPLETED DATE/TIME: 11/08/2017 9:41 am REASON FOR STUDY: pneumonia COMPARISON: 11/07/2017 NUMBER OF VIEWS: One view. TECHNIQUE: Single frontal radiographic image of the chest acquired. LIMITATIONS: None. FINDINGS: LUNGS AND PLEURA: Improved aeration with residual airspace disease in the lateral segment of the middle lobe and right lower lobe. Left lung is clear. MEDIASTINUM AND HEART: Stable heart size and mediastinal structures. SUPPORT DEVICES: Appropriate location without change. BONY STRUCTURES: No acute findings. HARDWARE: None. OTHER: No other significant finding. IMPRESSION: Improving pneumonia.
[2017-11-08] MEDS: ENOXAPARIN SODIUM INJ 30 MG/0.3 ML DISP.SYRIN SUBCUT SCH (10:14)
[2017-11-08] MEDS: TORSEMIDE 20 MG TABLET PO SCH (10:14)
[2017-11-08] MEDS: AMIODARONE HCL 200 MG TABLET PO SCH ×2 (10:14→21:27)
[2017-11-08] MEDS: LANSOPRAZOLE 30 MG TAB.RAP.DR PO SCH (10:14)
[2017-11-08] MEDS: FAMOTIDINE INJ/PF 20 MG/2 ML SDV IV SCH ×2 (10:14→21:27)
[2017-11-08] MEDS: TAMSULOSIN HCL 0.4 MG CAP.SR.24H PO SCH (10:14)
[2017-11-08] MEDS: CARVEDILOL 12.5 MG TABLET PO SCH ×2 (10:14→21:27)
[2017-11-08] MEDS: ASPIRIN 81 MG TABLET, ENT COATED PO SCH (10:14)
[2017-11-08] MEDS: SACUBITRIL/VALSARTAN 49 MG/51 MG TABLET PO SCH ×2 (10:14→21:27)
--- NOTE | 2017-11-08 15:21 | PDOC DISCHARGE SUMMARY ---
General - Admit/Disc Date/PCP Admission Date/Primary Care Provider: 10/29/17 15:15 CAYETANO RAY MD Discharge Date: 11/08/17 - Discharge Diagnosis (1) Acute respiratory failure Is this a current diagnosis for this admission?: Yes (2) Pneumonia Is this a current diagnosis for this admission?: Yes (3) Septicemia due to enterococcus Is this a current diagnosis for this admission?: Yes (4) Urinary tract infection due to Proteus Is this a current diagnosis for this admission?: Yes (5) Pleural effusion on left Is this a current diagnosis for this admission?: Yes (6) Acute systolic (congestive) heart failure Is this a current diagnosis for this admission?: Yes - Additional Information Resuscitation Status: Do Not Resuscitate Discharge Diet: Cardiac Discharge Activity: Activity As Tolerated, Balance Activity w/Rest, Weigh Daily Prescriptions: Apixaban [Eliquis 5 mg Tablet] 5 mg PO Q12 #60 tablet Sacubitril/Valsartan [Entresto 49 mg/51 mg Tablet] 1 tab PO Q12 #60 tablet Torsemide [Demadex 20 mg Tablet] 10 mg PO DAILY #90 tablet Home Medications: Amiodarone HCl [Cordarone 200 mg Tablet] 200 mg PO Q12 10/29/17 Aspirin [Aspirin 81 mg Chewable Tablet] 81 mg PO DAILY 10/29/17 Atorvastatin Calcium [Lipitor 40 mg Tablet] 40 mg PO DAILY 10/29/17 Carvedilol [Coreg 12.5 mg Tablet] 12.5 mg PO Q12 10/29/17 Lansoprazole [Prevacid] 30 mg PO DAILY 10/29/17 Potassium Chloride [Klor-Con 10 Meq Tablet.sa] 20 meq PO DAILY 10/29/17 Silver Sulfadiazine [Ssd] 25 gm TP DAILY 10/29/17 Tamsulosin HCl [Flomax 0.4 mg Cap.sr] 0.4 mg PO DAILY 10/29/17 Apixaban [Eliquis 5 mg Tablet] 5 mg PO Q12 #60 tablet 11/08/17 Sacubitril/Valsartan [Entresto 49 mg/51 mg Tablet] 1 tab PO Q12 #60 tablet 11/08 Torsemide [Demadex 20 mg Tablet] 10 mg PO DAILY #90 tablet 11/08/17 History of Present Illness History of Present Illness: MOHAN BALLETSEROS JR is a 76 year old male, he was admitted when he presented with altered mental status due to acute hypoxemic respiratory failure associated with pneumonia Hospital Course Hospital Course: He was admitted into intensive care unit, managed with IV antibiotic, he has a history of ischemic cardiomyopathy, a 2D echo was done on this admission it showed combined systolic and diastolic dysfunction of left ventricle. The estimated ejection fraction of left ventricle is 35%. Blood culture grew enterococcus species. He was initially empirically treated with IV antibiotic cefepime, vancomycin and Levaquin. Urine culture grew Proteus mirabilis. He was mechanically ventilated for the initial few days in the intensive care unit. The antibiotic was changed soon after the blood culture result came back , it was changed to Unasyn to cover the enterococcus and also the Proteus species. He has bilateral pleural effusion he underwent thoracentesis, more 800 cc of pleural fluid was collected, it was consistent with transudate probably from CHF. urine drug screen was positive for cocaine and marijuana Physical Exam Vital Signs: Temp Pulse Resp BP Pulse Ox 98.9 F 62 17 141/71 H 98 11/08/17 11:13 11/08/17 11:13 11/08/17 11:13 11/08/17 11:13 11/08/17 11:13 Intake & Output 11/07/17 11/08/17 11/09/17 06:59 06:59 06:59 Intake Total 1312 1451 Output Total 900 1800 Balance 412 -349 Weight 63.7 kg 63.7 kg General appearance: PRESENT: no acute distress Eye exam: PRESENT: PERRLA Respiratory exam: PRESENT: clear to auscultation srikanth Cardiovascular exam: PRESENT: +S1, +S2 GI/Abdominal exam: PRESENT: soft Neurological exam: PRESENT: alert, CN II-XII grossly intact Results Laboratory Results: 11/04/17 04:21 11/06/17 04:09 10/29/17 10/29/17 10/29/17 15:19 15:19 15:19 Creatine Kinase 131 CK-MB (CK-2) 1.67 Troponin I 0.136 Cancelled NT-Pro-B Natriuret Pep 10/29/17 10/29/17 10/30/17 21:15 21:15 03:13 Creatine Kinase 144 172 H CK-MB (CK-2) 2.53 Troponin I 0.239 NT-Pro-B Natriuret Pep 10/30/17 11/05/17 03:13 15:00 Creatine Kinase CK-MB (CK-2) 2.77 Troponin I 0.214 NT-Pro-B Natriuret Pep [id number] H Impressions: KUB X-Ray 10/29/17 00:00 IMPRESSION: TIP OF THE NASOGASTRIC TUBE IN THE STOMACH. NO RADIOGRAPHIC EVIDENCE FOR ACUTE ABDOMINAL DISEASE. Head CT 10/29/17 11:39 IMPRESSION: Multiple old infarcts. No acute findings. EVIDENCE OF ACUTE STROKE: NO. Chest CT 11/05/17 00:00 IMPRESSION: BILATERAL PLEURAL EFFUSIONS, RIGHT GREATER THAN LEFT. NODULAR AREAS IN THE RIGHT LUNG PRIMARILY DUE TO FLUID TRAPPED IN THE MAJOR AND MINOR FISSURE. THERE IS SCATTERED AIRSPACE DISEASE IN THE RIGHT LOWER LOBE. THERE IS CONSOLIDATION SECONDARY TO PNEUMONIA VERSUS COMPRESSIVE ATELECTASIS IN THE LEFT LUNG BASE. Thoracentesis Ultrasound 11/05/17 17:51 IMPRESSION: SUCCESSFUL THORACENTESIS USING ULTRASOUND GUIDANCE. Chest X-Ray 11/08/17 07:00 IMPRESSION: Improving pneumonia.
--- NOTE | 2017-11-08 20:06 | PDOC PROGRESS REPORT ---
Subjective Progress Note for:: 11/07/17 Subjective:: Patient denying any discomfort. Currently stable with some nocturnal oxygenation by oxygen cannula. Currently alert and verbal. Patient seems to be doing better with gradual improvement. Pt is denying any chest arm or neck discomfort. Patient denying any other significant discomfort. Patient had thoracentesis yesterday evening. Patient is maintaining sinus rhythm/atrial paced rhythm. BNP level came back elevated at over 10,000. Review of systems: Rest review of systems negative. Medications: Medications have been reviewed. Reason For Visit: SEPSIS,PNEUMONIA Physical Exam Vital Signs: Temp Pulse Resp BP Pulse Ox 99.1 F 61 18 128/72 H 98 11/07/17 15:10 11/07/17 15:10 11/07/17 15:10 11/07/17 15:10 11/07/17 15:10 Intake & Output 11/06/17 11/07/17 11/08/17 06:59 06:59 06:59 Intake Total 3200 1312 821 Output Total 150 900 900 Balance 3050 412 -79 Weight 66.9 kg 63.7 kg Exam: GENERAL: well-nourished and in no acute distress. Alert and oriented x3 HEAD: Atraumatic, normocephalic. EYES: Pupils equal round and reactive to light, extraocular movements intact, sclera anicteric, conjunctiva are normal. ENT: TMs normal, nares patent, oropharynx clear without exudates. Moist mucous membranes. No oral ulcerations or bleeding gums noted NECK: supple without lymphadenopathy. Trachea is central. No cervical or axillary lymphadenopathy noted. Carotids are 2+, JVD WNL LUNGS: Respiration seems nonlabored, no significant accessory muscle action noted. Bibasilar fine crackles noted right more than left. No wheezing noted. No significant dullness noted on percussion. CHEST: Palpation of the chest wall shows no significant chest wall tenderness. No other significant abnormalities noted. HEART: [employer]GER, No PSH, 1/6 CYNDIE aortic area, 1/6 reyna systolic murmur mitral area, no rubs, no gallops. ABDOMEN: Soft, no significant tenderness appreciated, normoactive bowel sounds. No guarding, no rebound. No rigidity noted . No masses appreciated. EXTREMITIES: Pedal pulses are 1-2+, no calf tenderness noted. No clubbing or cyanosis. Negative edema. 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 NEUROLOGICAL: Focused neurological exam showed no significant neurologic deficit. Normal speech, no focal weakness appreciated. PSYCH: Normal mood, normal affect. Judgment and insight within normal limits. SKIN: No significant ecchymosis, rash, ulcerations or signs of pruritus noted. MUSCULOSKELETAL EXAM: No significant joint swelling noted. Results Laboratory Results: 11/04/17 04:21 11/06/17 04:09 11/06/17 11/06/17 11/06/17 11:05 11:05 11:05 Fluid Glucose 146 Fluid Total Protein Fluid LDH 77 Fluid Amylase 18 11/06/17 11:05 Fluid Glucose Fluid Total Protein 1.4 Fluid LDH Fluid Amylase 10/29/17 10/29/17 10/29/17 15:19 15:19 15:19 Creatine Kinase 131 CK-MB (CK-2) 1.67 Troponin I 0.136 Cancelled NT-Pro-B Natriuret Pep 10/29/17 10/29/17 10/30/17 21:15 21:15 03:13 Creatine Kinase 144 172 H CK-MB (CK-2) 2.53 Troponin I 0.239 NT-Pro-B Natriuret Pep 10/30/17 11/05/17 03:13 15:00 Creatine Kinase CK-MB (CK-2) 2.77 Troponin I 0.214 NT-Pro-B Natriuret Pep 64153 H Impressions: KUB X-Ray 10/29/17 00:00 IMPRESSION: TIP OF THE NASOGASTRIC TUBE IN THE STOMACH. NO RADIOGRAPHIC EVIDENCE FOR ACUTE ABDOMINAL DISEASE. Head CT 10/29/17 11:39 IMPRESSION: Multiple old infarcts. No acute findings. EVIDENCE OF ACUTE STROKE: NO. Chest CT 11/05/17 00:00 IMPRESSION: BILATERAL PLEURAL EFFUSIONS, RIGHT GREATER THAN LEFT. NODULAR AREAS IN THE RIGHT LUNG PRIMARILY DUE TO FLUID TRAPPED IN THE MAJOR AND MINOR FISSURE. THERE IS SCATTERED AIRSPACE DISEASE IN THE RIGHT LOWER LOBE. THERE IS CONSOLIDATION SECONDARY TO PNEUMONIA VERSUS COMPRESSIVE ATELECTASIS IN THE LEFT LUNG BASE. Thoracentesis Ultrasound 11/05/17 17:51 IMPRESSION: SUCCESSFUL THORACENTESIS USING ULTRASOUND GUIDANCE. Chest X-Ray 11/07/17 07:00 IMPRESSION: IMPROVED APPEARANCE OF THE LEFT LUNG BASE. LITTLE CHANGE ON THE RIGHT. Assessment & Plan - Diagnosis (1) Congestive heart failure Qualifiers: Heart failure type: combined systolic and diastolic Heart failure chronicity: acute on chronic Qualified Code(s): I50.43 - Acute on chronic combined systolic (congestive) and diastolic (congestive) heart failure Is this a current diagnosis for this admission?: Yes (2) Elevated troponin Is this a current diagnosis for this admission?: Yes (3) NSTEMI (non-ST elevated myocardial infarction) Is this a current diagnosis for this admission?: Yes (4) Coronary artery disease Qualifiers: Coronary Disease-Associated Artery/Lesion type: [place] artery [place] vs. transplanted heart: [place] heart Associated angina: angina presence unspecified Qualified Code(s): I25.10 - Atherosclerotic heart disease of [place] coronary artery without angina pectoris Is this a current diagnosis for this admission?: Yes (5) Acute respiratory failure Qualifiers: Is this a current diagnosis for this admission?: Yes (6) Lactic acidosis Is this a current diagnosis for this admission?: Yes (7) Pneumonia Qualifiers: Pneumonia type: due to unspecified organism Lung location: unspecified part of lung Is this a current diagnosis for this admission?: Yes (8) Hypertension Qualifiers: Hypertension type: essential hypertension Qualified Code(s): I10 - Essential (primary) hypertension Is this a current diagnosis for this admission?: Yes (9) Ventricular tachycardia Is this a current diagnosis for this admission?: No - Notes Notes: Patient remained stable from cardiac standpoint. Patient is intermittently pleasantly confused. However mental status has significantly improved. Patient has had no chest pains. At this point patient medical regimen was reviewed and is noted to be very satisfactory. Will follow 1 more day and sign off as patient probably not a very good candidate for any revascularization therapy, in the absence of significant anginal symptoms which patient does not have.. - Time Time with patient: 15-25 minutes - CODE STATUS was discussed, patient remains full code. Surrogate decision-maker unchanged. Multiple medical problems were addressed. More than 50% of the time spent coordinating care, discussing management plans with involved caregivers. Management plans discussed with involved personnels. Medical decision making was of moderate to high complexity , patient's has multiple comorbidities. Medications reviewed and adjusted accordingly: Yes
--- NOTE | 2017-11-08 20:08 | PDOC PROGRESS REPORT ---
Subjective Progress Note for:: 11/08/17 Subjective:: Patient denying any discomfort. Currently stable with some nocturnal oxygenation by oxygen cannula. Pt is denying any chest arm or neck discomfort. Patient denying any other significant discomfort. Patient had thoracentesis yesterday evening. Patient is maintaining sinus rhythm/atrial paced rhythm. Review of systems: Rest review of systems negative. Medications: Medications have been reviewed. Reason For Visit: SEPSIS,PNEUMONIA Physical Exam Vital Signs: Temp Pulse Resp BP Pulse Ox 98.8 F 61 17 138/79 H 96 11/08/17 16:36 11/08/17 19:00 11/08/17 16:36 11/08/17 16:36 11/08/17 16:36 Intake & Output 11/07/17 11/08/17 11/09/17 06:59 06:59 06:59 Intake Total 1312 1451 1009 Output Total 900 1800 1300 Balance 412 349 -291 Weight 63.7 kg 63.7 kg Exam: GENERAL: well-nourished and in no acute distress. Alert and oriented x3 HEAD: Atraumatic, normocephalic. EYES: Pupils equal round and reactive to light, extraocular movements intact, sclera anicteric, conjunctiva are normal. ENT: TMs normal, nares patent, oropharynx clear without exudates. Moist mucous membranes. No oral ulcerations or bleeding gums noted NECK: supple without lymphadenopathy. Trachea is central. No cervical or axillary lymphadenopathy noted. Carotids are 2+, JVD WNL LUNGS: Respiration seems nonlabored, no significant accessory muscle action noted. Bibasilar fine crackles noted right more than left. No wheezing noted. No significant dullness noted on percussion. CHEST: Palpation of the chest wall shows no significant chest wall tenderness. No other significant abnormalities noted. HEART: [employer], No PSH, 1/6 CYNDIE aortic area, 1/6 reyna systolic murmur mitral area, no rubs, no gallops. ABDOMEN: Soft, no significant tenderness appreciated, normoactive bowel sounds. No guarding, no rebound. No rigidity noted . No masses appreciated. EXTREMITIES: Pedal pulses are 1-2+, no calf tenderness noted. No clubbing or cyanosis. Negative edema. 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 NEUROLOGICAL: Focused neurological exam showed no significant neurologic deficit. Normal speech, no focal weakness appreciated. PSYCH: Normal mood, normal affect. Judgment and insight within normal limits. SKIN: No significant ecchymosis, rash, ulcerations or signs of pruritus noted. MUSCULOSKELETAL EXAM: No significant joint swelling noted. Results Laboratory Results: 11/04/17 04:21 11/06/17 04:09 10/29/17 10/29/17 10/29/17 15:19 15:19 15:19 Creatine Kinase 131 CK-MB (CK-2) 1.67 Troponin I 0.136 Cancelled NT-Pro-B Natriuret Pep 10/29/17 10/29/17 10/30/17 21:15 21:15 03:13 Creatine Kinase 144 172 H CK-MB (CK-2) 2.53 Troponin I 0.239 NT-Pro-B Natriuret Pep 10/30/17 11/05/17 03:13 15:00 Creatine Kinase CK-MB (CK-2) 2.77 Troponin I 0.214 NT-Pro-B Natriuret Pep 39501 H Impressions: KUB X-Ray 10/29/17 00:00 IMPRESSION: TIP OF THE NASOGASTRIC TUBE IN THE STOMACH. NO RADIOGRAPHIC EVIDENCE FOR ACUTE ABDOMINAL DISEASE. Head CT 10/29/17 11:39 IMPRESSION: Multiple old infarcts. No acute findings. EVIDENCE OF ACUTE STROKE: NO. Chest CT 11/05/17 00:00 IMPRESSION: BILATERAL PLEURAL EFFUSIONS, RIGHT GREATER THAN LEFT. NODULAR AREAS IN THE RIGHT LUNG PRIMARILY DUE TO FLUID TRAPPED IN THE MAJOR AND MINOR FISSURE. THERE IS SCATTERED AIRSPACE DISEASE IN THE RIGHT LOWER LOBE. THERE IS CONSOLIDATION SECONDARY TO PNEUMONIA VERSUS COMPRESSIVE ATELECTASIS IN THE LEFT LUNG BASE. Thoracentesis Ultrasound 11/05/17 17:51 IMPRESSION: SUCCESSFUL THORACENTESIS USING ULTRASOUND GUIDANCE. Chest X-Ray 11/08/17 07:00 IMPRESSION: Improving pneumonia. Assessment & Plan - Diagnosis (1) Congestive heart failure Qualifiers: Heart failure type: combined systolic and diastolic Heart failure chronicity: acute on chronic Qualified Code(s): I50.43 - Acute on chronic combined systolic (congestive) and diastolic (congestive) heart failure Is this a current diagnosis for this admission?: Yes (2) Elevated troponin Is this a current diagnosis for this admission?: Yes (3) NSTEMI (non-ST elevated myocardial infarction) Is this a current diagnosis for this admission?: Yes (4) Coronary artery disease Qualifiers: Coronary Disease-Associated Artery/Lesion type: [place] artery [place] vs. transplanted heart: [place] heart Associated angina: angina presence unspecified Qualified Code(s): I25.10 - Atherosclerotic heart disease of [place] coronary artery without angina pectoris Is this a current diagnosis for this admission?: Yes (5) Acute respiratory failure Qualifiers: Is this a current diagnosis for this admission?: Yes (6) Lactic acidosis Is this a current diagnosis for this admission?: Yes (7) Pneumonia Qualifiers: Pneumonia type: due to unspecified organism Lung location: unspecified part of lung Is this a current diagnosis for this admission?: Yes (8) Hypertension Qualifiers: Hypertension type: essential hypertension Qualified Code(s): I10 - Essential (primary) hypertension Is this a current diagnosis for this admission?: Yes (9) Ventricular tachycardia Is this a current diagnosis for this admission?: No - Notes Notes: Patient has remained stable from cardiac standpoint for last several days. His pneumonia is showing improvement. His CHF is also improved. Patient has not had any significant tachyarrhythmias. Patient has been free of any chest pain. Patient has intermittent confusion. At this point do not feel patient is a good candidate for any heart catheterization or revascularization in the absence of significant ischemic symptoms which patient does not have. Patient seems to be on a stable regimen. Will sign off. Please reconsult if needed. - Time Time with patient: 15-25 minutes - CODE STATUS : was discussed, patient remains DO NOT RESUSCITATE. Surrogate decision-maker unchanged. Multiple medical problems were addressed. More than 50% of the time spent coordinating care, discussing management plans with involved caregivers. Management plans discussed with involved personnels. Medical decision making was of moderate to high complexity, patient's has multiple comorbidities.
[2017-11-08] MEDS: ATORVASTATIN CALCIUM 40 MG TABLET PO SCH (21:27)
[2017-11-09 02:34] VITALS: BP 119/66
== END 2017-11-09 00:15 | disposition home health service (06) | DRG 871 ==
LOC: ER 11:25 → EH 15:15 → ICU 16:04 → 5 11-03 02:15
PROVIDERS: ADMIT Internal Medicine; ATTEND Internal Medicine
PROC: 5A1945Z Respiratory Ventilation, 24-96 Consecutive Hours (ICD-10-PCS; 2017-10-29)
PROC: 0BH17EZ Insertion of Endotracheal Airway into Trachea, Via Natural or Artificial Opening (ICD-10-PCS; 2017-10-29)
PROC: 0W9B3ZX Drainage of Left Pleural Cavity, Percutaneous Approach, Diagnostic (ICD-10-PCS; principal; 2017-11-06)
DX: A41.81 Sepsis due to Enterococcus (principal); J18.1 Lobar pneumonia, unspecified organism; J96.01 Acute respiratory failure with hypoxia; I21.A1 Myocardial infarction type 2; I50.43 Acute on chronic combined systolic (congestive) and diastolic (congestive) heart failure; N39.0 Urinary tract infection, site not specified; J90 Pleural effusion, not elsewhere classified; E87.2 Acidosis; I47.2 Ventricular tachycardia; Z66 Do not resuscitate; B96.4 Proteus (mirabilis) (morganii) as the cause of diseases classified elsewhere; I25.5 Ischemic cardiomyopathy; I48.91 Unspecified atrial fibrillation; E78.5 Hyperlipidemia, unspecified; I11.0 Hypertensive heart disease with heart failure; I73.9 Peripheral vascular disease, unspecified; F32.9 Major depressive disorder, single episode, unspecified; F17.210 Nicotine dependence, cigarettes, uncomplicated; I25.10 Atherosclerotic heart disease of native coronary artery without angina pectoris; Z78.1 Physical restraint status; I25.2 Old myocardial infarction; Z79.899 Other long term (current) drug therapy; Z89.612 Acquired absence of left leg above knee; Z82.49 Family history of ischemic heart disease and other diseases of the circulatory system; Z95.0 Presence of cardiac pacemaker
CPT/HCPCS: 32555; 36415; 70450; 71045; 71250; 74018; 80053; 80202; 80307; 81001; 82042; 82150; 82550; 82553; 82565; 82803; 82945; 82962; 83605; 83615; 83735; 83880; 84157; 84478; 84484; 85025; 85610; 85730; 87040; 87070; 87075; 87077; 87086; 87088; 87101; 87186; 87205; 87252; 89050; 93005; 93010; 93306; 94002; 94003; 94799; 96365; 96367; 99285; J0295; J0330; J0456; J0692; J0696; J1650; J1940; J1956; J2270; J2704; J3370; J3475; J3480; J3490; J7030; J7040; J7060; S0028

== ENCOUNTER 2017-11-13 23:13 | Emergency (ER) | payer MEDICARE, MEDICAID ==
--- NOTE | 2017-11-14 00:51 | ER Document Report ---
ED Extremity Problem, Lower - General Chief Complaint: Leg Swelling Stated Complaint: LEG PAIN Time Seen by Provider: 11/14/17 00:51 Mode of Arrival: Ambulatory Information source: Patient TRAVEL OUTSIDE OF THE [place] IN LAST 30 DAYS: No - HPI Notes: 77-year-old gentleman with past medical history of atrial fibrillation, heart failure, hypertension, hyperlipidemia, peripheral vascular disease, prior history of amputation of the left lower extremity presented today for evaluation of right lower extremity pain as well as swelling. Family reported that swelling has been going on for the past few days. Patient also complains of right knee swelling as well as pain. Pain is localized to the right knee, radiation of pain to the distal femur as well as proximal tib-fib, achy, worse with movement as well as palpation, severity of symptoms is 6 out of 10. Patient denies systemic signs of illness such as fevers, chills, nausea or vomiting. Patient typically ambulates with a wheelchair. - Related Data Allergies/Adverse Reactions: No Known Allergies Allergy (Verified 02/07/17 12:26) Past Medical History - Social History Smoking Status: Never Smoker Chew tobacco use (# tins/day): No Frequency of alcohol use: Social Drug Abuse: Marijuana Family History: CAD, Hypertension Patient has suicidal ideation: No Patient has homicidal ideation: No - Past Medical History Cardiac Medical History: Reports: Hx Atrial Fibrillation, Hx Congestive Heart Failure, Hx Heart Attack, Hx Hypercholesterolemia, Hx Hypertension, Hx Peripheral Vascular Disease Renal/ Medical History: Denies: Hx Peritoneal Dialysis Psychiatric Medical History: Reports: Hx Depression Past Surgical History: Reports: Hx Cardiac Surgery - defib, CABGx3, Hx Vascular Surgery - Left AKA, Other - Status post amputation left lower extremity. Review of Systems - Review of Systems Notes: REVIEW OF SYSTEMS: CONSTITUTIONAL: -fevers, -chills EENT: -eye pain, -difficulty swallowing, -nasal congestion CARDIOVASCULAR: -chest pain, -syncope. RESPIRATORY: -cough, -SOB GASTROINTESTINAL: -abdominal pain, -nausea, -vomiting, -diarrhea GENITOURINARY: -dysuria, -hematuria MUSCULOSKELETAL: -back pain, -neck pain, +knee pain and swelling SKIN: -rash or skin lesions. HEMATOLOGIC: -easy bruising or bleeding. LYMPHATIC: -swollen, enlarged glands. NEUROLOGICAL: -altered mental status or loss of consciousness, -headache, - neurologic symptoms PSYCHIATRIC: -anxiety, -depression. ALL OTHER SYSTEMS REVIEWED AND NEGATIVE. Physical Exam - Vital signs Vitals: Temp Pulse Resp BP Pulse Ox 97.8 F 59 L 18 97/47 L 99 11/13/17 23:25 11/13/17 23:25 11/13/17 23:25 11/13/17 23:25 11/13/17 23:25 - Notes Notes: Reviewed vital signs and nursing note as charted by RN. CONSTITUTIONAL: Alert and oriented HEAD: Normocephalic; atraumatic EYES: PERRL ENT: normal nose NECK: Supple CARD: Regular rate and rhythm; no murmurs, no clicks, no rubs, no gallops; symmetric distal pulses RESP: Normal chest excursion without splinting or tachypnea; breath sounds clear and equal bilaterally ABD/GI: Normal bowel sounds; non-distended; soft, no tenderness BACK: The back appears normal and is non-tender to palpation EXT: Patient has amputation of left lower extremity above the knee, right lower extreme examination with pitting edema 2+, tenderness to palpation throughout the right lower extremity including the right knee, right knee has effusion, tender to touch, has mild fluctuance, patient able to range with mild pain, no superficial findings concerning for septic knee or cellulitis, DP and PT has biphasic signals, unable to palpate secondary to edema, sensation is present in all the dermatomes of the lower extremity SKIN: Normal color for age and race; warm; dry; good turgor; capillary refill < 2 seconds; no acute lesions noted NEURO: Cranial nerves 3-12 intact. Motor strength 5/5 bilaterally. Sensation intact to touch bilaterally PSYCH: The patient's mood and manner are appropriate. Grooming and personal hygiene are appropriate. Course - Re-evaluation Re-evalutation: 77-year-old man here for evaluation of right lower extremity pain as well as edema Patient has notable knee effusion and swelling Differential diagnoses includes DVT, musculoskeletal pain, knee fracture, osteo- arthritis of the knee, knee effusion, gout, septic knee We will obtain basic lab work including CBC, BMP, coags We will perform arthrocentesis of the right knee X-ray of the right knee Unfortunately unable to obtain Doppler of the right lower extremity, will schedule patient to obtain Doppler tomorrow, will treat with Lovenox tonight Pain control with [place] Reassess Reassessment 2 AM Patient has slightly low potassium, will give oral 40 mEq X-ray of the knee with effusion without any fracture, patient has osteophytic changes Arthrocentesis performed, please see procedure note Disposition per fluid analysis 11/14/17 04:33 Synovial fluid with no crystals White count is not high enough to be concerned for septic knee, it is 22K today Patient felt better after arthrocentesis as well as pain control Will discharge patient on NSAIDs as well as [place] for pain Follow-up with outpatient Doppler ultrasound for evaluation of DVT Patient was given strict precautions to come back if his knee is getting more hot or swollen, patient has fevers or chills - Vital Signs Vital signs: Temp Pulse Resp BP Pulse Ox 97.8 F 59 L 17 99/60 L 99 11/13/17 23:25 11/13/17 23:25 11/14/17 02:01 11/14/17 02:00 11/14/17 02:01 - Laboratory Result Diagrams: 11/14/17 01:10 11/14/17 01:10 Laboratory results interpreted by me: 11/14/17 11/14/17 11/14/17 01:10 01:10 01:10 WBC 11.1 H RBC 3.50 L Hgb 9.8 L Hct 30.1 L RDW 17.5 H Monocytes % 13.9 H Absolute Monocytes 1.5 H PT 15.7 H Potassium 3.0 L* Calcium 8.1 L - Diagnostic Test Radiology reviewed: Image reviewed - EXAM DESCRIPTION: KNEE RIGHT 3 VIEWS CLINICAL HISTORY: knee pain COMPARISON: None. FINDINGS: 3 views of the right knee. No acute fracture or dislocation. Normal osseous mineralization. Large joint effusion. Severe 3 compartment joint space narrowing and marginal osteophytosis. Atherosclerotic vascular calcification. IMPRESSION: 1. No acute fracture or dislocation. 2. Large joint effusion. If there is concern for internal derangement MRI could provide additional characterization. 3. Severe 3 compartment osteoarthritic change. Dictated by: SUSHMA MOON DO [id number] CC: JEYSON SOTO MD Procedures - Joint Aspiration Right Knee Time completed: 02:45 Consent obtained: Yes Joint aspiration pre-procedure: Chloraprep applied, Sterile drapes applied Anesthetic type: 1% Lidocaine mL's of anesthetic: 10 Needle size: 18 Amount/type of drainage: 50 cc, strawlike, mild bleeding Number of attempts: 1 Complications: No Discharge - Discharge Clinical Impression: Hypokalemia, Leg pain, Knee effusion, right, Osteoarthritis, knee, Leg edema, right Condition: Stable Disposition: HOME, SELF-CARE Instructions: Hypokalemia ([facility]), Knee Effusion ([facility]) Additional Instructions: You have been diagnosed with right knee effusion The fluid analysis did not reveal any infection or evidence of gout You do have right knee osteoarthritis likely secondary to damage to cartilage from overuse Please follow-up with ultrasound tomorrow morning, please make an appointment Come back if it worsening pain, swelling, chest pain or shortness of breath Prescriptions: Ibuprofen [Motrin 600 mg Tablet] 600 mg PO Q8HP PRN #90 tablet PRN Reason: Hydrocodone/Acetaminophen [[place] 5-325 Tablet] 1 each PO Q6 #12 tablet Forms: Follow-Up Outpatient Testing Referrals: CAYETANO RAY MD [Primary Care Provider] - Follow up as needed
[2017-11-14] MEDS ORDERED: HYDROCODONE/ACETAMINOPHEN 10-325 MG TABLET PO ONE (01:04)
[2017-11-14] MEDS ORDERED: LIDOCAINE 1% INJ (10 MG/ML) 10 ML MDV INJ ONE (01:08)
[2017-11-14] MEDS ORDERED: LIDOCAINE 1% INJ-PF (10 MG/ML) 30 ML SDV ONE (01:12)
[2017-11-14 01:20] LABS: ABSOLUTE BASOPHILS # (AUTO) 0.1 10^3/uL (0.0-0.2); ABSOLUTE EOSINOPHILS # (AUTO) 0.1 10^3/uL (0.0-0.6); ABSOLUTE LYMPHOCYTES (AUTO) 1.5 10^3/uL (0.5-4.7); ABSOLUTE MONOCYTES (AUTO) 1.5 10^3/uL (0.1-1.4); ABSOLUTE NEUT (AUTO) 7.9 10^3/uL (1.7-8.2); BASOPHILS % (AUTO) 0.6 % (0-2); EOSINOPHILS % (AUTO) 0.7 % (0-6); HEMATOCRIT 30.1 % (37.9-51.0); HEMOGLOBIN 9.8 g/dL (13.5-17.0); LYMPHOCYTES % (AUTO) 13.2 % (13-45); MEAN CORPUSCULAR HGB CONC 32.5 g/dL (32.0-36.0); MEAN CORPUSCULAR VOLUME 86 fl (80-97); MONOCYTES % (AUTO) 13.9 % (3-13); PLATELET COUNT 229 10^3/uL (150-450); RED CELL DISTRIBUTION WIDTH 17.5 % (11.5-14.0); SEGMENTED NEUTROPHILS % (AUTO) 71.6 % (42-78); TOTAL CELLS COUNTED % (AUTO) 100 %; WHITE BLOOD COUNT 11.1 10^3/uL (4.0-10.5)
[2017-11-14 01:26] LABS: INTERNATIONAL RATION (INR) 1.17; PROTHROMBIN TIME 15.7 SEC (11.4-15.4)
[2017-11-14 01:45] LABS: ANION GAP 7 (5-19); BLOOD UREA NITROGEN 15 mg/dL (7-20); CALCIUM 8.1 mg/dL (8.4-10.2); CARBON DIOXIDE 30 mmol/L (22-30); CHLORIDE 106 mmol/L (98-107); GLUCOSE 96 mg/dL (75-110); SODIUM 143.1 mmol/L (137-145)
[2017-11-14] MEDS ORDERED: POTASSIUM CHLORIDE 20 MEQ/15 ML UDCUP PO ONE (02:11)
--- NOTE | 2017-11-14 03:48 | RADIOLOGY REPORT (SQ) ---
EXAM DESCRIPTION: KNEE RIGHT 3 VIEWS CLINICAL HISTORY: knee pain COMPARISON: None. FINDINGS: 3 views of the right knee. No acute fracture or dislocation. Normal osseous mineralization. Large joint effusion. Severe 3 compartment joint space narrowing and marginal osteophytosis. Atherosclerotic vascular calcification. IMPRESSION: 1. No acute fracture or dislocation. 2. Large joint effusion. If there is concern for internal derangement MRI could provide additional characterization. 3. Severe 3 compartment osteoarthritic change.
[2017-11-14 03:51] LABS: CALCIUM PYROPHOSPHATE CRYSTALS NONE OBSERVED; MONOSODIUM URATE CRYSTALS NONE OBSERVED; OTHER CRYSTALS NONE OBSERVED
[2017-11-14] MEDS ORDERED: ENOXAPARIN SODIUM INJ 80 MG/0.8 ML DISP.SYRIN SUBCUT PRN (03:58)
[2017-11-14 04:25] LABS: FLUID SOURCE KNEE; FLUID TYPE SYNOVIAL
[2017-11-14 04:26] LABS: FLUID APPEARANCE TURBID; FLUID COLOR RED; FLUID VISCOSITY SLIGHTLY VISCOUS
[2017-11-14 04:50] VITALS: BP 103/84
== END 2017-11-14 04:50 | disposition home or self-care (01) ==
LOC: ER 23:13
PROC: 0S9C3ZZ Drainage of Right Knee Joint, Percutaneous Approach (ICD-10-PCS; principal; 2017-11-13)
DX: E87.6 Hypokalemia (principal); M25.461 Effusion, right knee; M79.89 Other specified soft tissue disorders; M17.12 Unilateral primary osteoarthritis, left knee; I48.91 Unspecified atrial fibrillation; I11.0 Hypertensive heart disease with heart failure; I50.9 Heart failure, unspecified; E78.00 Pure hypercholesterolemia, unspecified; Z89.612 Acquired absence of left leg above knee; Z95.1 Presence of aortocoronary bypass graft
CPT/HCPCS: 99284; 96372; 36415; 87205; 87070; 85025; 85610; 89050; 89060; 87075; 80048; 73562; 20610; J3490; A9270 ×2; J1650

== ENCOUNTER → 2017-11-14 | Outpatient (CLI) | payer MEDICARE, MEDICAID ==
--- NOTE | 2017-11-14 10:50 | RADIOLOGY REPORT (SQ) ---
EXAM DESCRIPTION: VENOUS UNILATERAL LOWER COMPLETED DATE/TIME: 11/14/2017 10:32 am REASON FOR STUDY: RLE PAIN M79.604 PAIN IN RIGHT LEG COMPARISON: None. TECHNIQUE: Dynamic and static nunez scale and color images acquired of the right leg venous system. S elected spectral images acquired with additional compression and augmentation maneuvers. The contrala teral common femoral vein and saphenofemoral junction were also imaged. Images stored on PACS. LIMITATIONS: None. FINDINGS: COMMON FEMORAL: Normal phasicity, compression and augmentation. No visualized echogenic ma terial on nunez scale. No defects on color images. FEMORAL: Normal compression and augmentation. No visualized echogenic material on nunez scale. No defe cts on color images. POPLITEAL: Normal compression, augmentation. No visualized echogenic material on nunez scale. No defec ts on color images. CALF VESSELS: Normal compression, augmentation. No visualized echogenic material on nunez scale. No de fects on color images. GSV and SSV: Normal compression, augmentation. No visualized echogenic material on nunez scale. No def ects on color images. ANY DEEP VENOUS INSUFFICIENCY: Not evaluated. ANY EVIDENCE OF POPLITEAL CYST: No. OTHER: No other significant finding. CONTRALATERAL COMMON FEMORAL VEIN AND SAPHENOFEMORAL JUNCTION: Normal phasicity, compression and augmentation. No visualized echogenic material on nunez scale. No de fects on color images. IMPRESSION: NO EVIDENCE DVT OR SVT IN THE RIGHT LEG. TECHNICAL DOCUMENTATION: JOB ID: [id number] All Rights Reserved
== END ==
LOC: SP 09:52
PROVIDERS: ATTEND Student in an Organized Health Care Education/Training Program
DX: M79.604 Pain in right leg (principal)
CPT/HCPCS: 93971

== ENCOUNTER 2017-11-26 11:12 | Emergency (ER) | payer MEDICARE, MEDICAID ==
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
[2017-11-26] MEDS ORDERED: SILVER SULFADIAZINE 1% CREAM 25 GM TP ONE (13:09)
--- NOTE | 2017-11-26 13:11 | ER Document Report ---
HPI - HPI Patient complains to provider of: leg burn Onset: Other - 3 days ago Onset/Duration: Persistent Quality of pain: Achy Pain Level: 2 Context: Patient states that he accidentally spilled boiling water on his leg 3 days ago. Patient complains of mild discomfort to his leg. Patient without any fever. Patient is currently being managed by the wound clinic for a chronic wound to the anterior aspect of his left thigh. Associated Symptoms: Other - leg burn Relieved by: Denies Similar symptoms previously: No Recently seen / treated by doctor: No - ROS ROS below otherwise negative: Yes Systems Reviewed and Negative: Yes All other systems reviewed and negative - CONSTITUTIONAL Constitutional: DENIES: Fever, Chills - NEURO Neurology: DENIES: Weakness - GASTROINTESTINAL Gastrointestinal: DENIES: Nausea - REPRODUCTIVE Reproductive: DENIES: : - MUSCULOSKELETAL Musculoskeletal: REPORTS: Extremity pain - DERM Skin Problems: Burn Past Medical History - General Information source: Patient, Relative Cannot obtain history due to: Dementia - Social History Smoking Status: Current Every Day Smoker Frequency of alcohol use: Rare Drug Abuse: Marijuana Lives with: Family Family History: CAD, Hypertension Patient has suicidal ideation: No Patient has homicidal ideation: No - Past Medical History Cardiac Medical History: Reports: Hx Atrial Fibrillation, Hx Congestive Heart Failure, Hx Heart Attack, Hx Hypercholesterolemia, Hx Hypertension, Hx Peripheral Vascular Disease Renal/ Medical History: Denies: Hx Peritoneal Dialysis Psychiatric Medical History: Reports: Hx Depression Past Surgical History: Reports: Hx Cardiac Surgery - defib, CABGx3, Hx Vascular Surgery - Left AKA, Other - Status post amputation left lower extremity. Vertical Provider Document - CONSTITUTIONAL Agree With Documented VS: Yes Exam Limitations: No Limitations General Appearance: WD/WN, No Apparent Distress - INFECTION CONTROL TRAVEL OUTSIDE OF THE [place] IN LAST 30 DAYS: No - HEENT HEENT: Atraumatic, Normocephalic - NECK Neck: Normal Inspection - RESPIRATORY Respiratory: Breath Sounds Normal, No Respiratory Distress O2 Sat by Pulse Oximetry: 99 - CARDIOVASCULAR Cardiovascular: Regular Rate, Regular Rhythm - MUSCULOSKELETAL/EXTREMETIES Musculoskeletal/Extremeties: MAEW - NEURO Level of Consciousness: Awake, Alert, Appropriate Motor/Sensory: No Motor Deficit - DERM Integumentary: Warm, Dry Adult Front & Back Diagram: 1 - Large partial thickness burn to right thigh, no surrounding erythema, with a fluid-filled blister measuring about 4 cm diameter 2 - 2 cm open wound 3 - Partial-thickness burn, with 1.5 cm open wound, no blistering noted 4 - Chronic wound with dressing in place, no surrounding erythema 5 - Partial thickness burn, no blistering Course - Re-evaluation Re-evalutation: 11/26/17 13:33 Patient with multiple large partial-thickness prasad to bilateral lower extremities. No circumferential joint involvement. No concern for cellulitis. Patient already has a wound clinic appointment this week for management of his chronic left anterior thigh wound. Discussed wound management with patient and family. Discussed safety concerns regarding patient cooking in the kitchen. Family and patient verbalized understanding and agrees with discharge plan of care. 11/26/17 20:58 patient's healthcare decision maker (son) notified that patient did not receive his tetanus immunization while he was here today. Family member advised that an order would be left at the desk for patient to return as a nurse visit to receive his tetanus immunization. Patient's family member advised that patient could see his primary doctor or the virtual reality specialist, or could come back to the emergency department and receive this vaccine. Discussed process with healthcare decision maker regarding presentation to the ER as a nurse visit. Patient's son states that he will bring patient tomorrow to receive the vaccination. - Vital Signs Vital signs: Temp Pulse Resp BP Pulse Ox 98.2 F 59 L 18 123/66 99 11/26/17 11:27 11/26/17 11:27 11/26/17 11:27 11/26/17 11:27 11/26/17 11:27 Discharge - Discharge Clinical Impression: Burn, Tinea cruris Condition: Stable Disposition: HOME, SELF-CARE Instructions: Prasad ([facility]), Silvadene Cream ([facility]), Skin Fungus ([facility]) Additional Instructions: Return immediately for any new or worsening symptoms Followup with your primary care provider, call tomorrow to make a followup appointment Keep wounds clean and covered Use antifungal cream to rash to groin area follow-up with the wound clinic as planned for further management of leg prasad. Prescriptions: Ketoconazole [Nizoral] 1 applic TP DAILY #30 cream.gm. Silver Sulfadiazine [Silvadene 1% Cream 400 Gm Jar] 1 applic TP BID #1 jar Referrals: Wound Care [Provider Group] - Follow up as needed CAYETANO RAY MD [Primary Care Provider] - Follow up tomorrow
[2017-11-26 14:24] VITALS: BP 135/90
== END 2017-11-26 14:24 | disposition home or self-care (01) ==
LOC: ER 11:12
DX: T24.211A Burn of second degree of right thigh, initial encounter (principal); T24.101A Burn of first degree of unspecified site of right lower limb, except ankle and foot, initial encounter; X12.XXXA Contact with other hot fluids, initial encounter; Y93.G3 Activity, cooking and baking; Y92.009 Unspecified place in unspecified non-institutional (private) residence as the place of occurrence of the external cause; B35.6 Tinea cruris; F17.200 Nicotine dependence, unspecified, uncomplicated; I10 Essential (primary) hypertension
CPT/HCPCS: 99283; A9270

== ENCOUNTER → 2017-12-06 | Outpatient (CLI) | payer MEDICARE, MEDICAID ==
--- NOTE | 2017-12-07 16:49 | XCELERA REPORT ---
[address] [address] Lower Extremity Arterial Evaluation Name: MOHAN BALLESTEROS JR Age: 77 yrs Gender: Male : 1940 Patient Status: Outpatient Patient Location: Study Date: 12/06/2017 10:16 AM Procedure: A color flow and duplex scan of the lower extremity arteries was performed bilaterally with velocity and waveform anaylsis. Reason For Study: ULCER LT THIGH WOUND Ordering Physician: ALIX KO Performed By: Stephanie Ballesteros Measurements and Calculations Right Left INTERNAL AFFAIRS INVESTIGATOR PSV 123.4 26.5 cm/sec Prox PFA PSV -72.2 -73.9 cm/sec Prox SFA PSV 84.0 cm/sec Mid SFA PSV -68.8 cm/sec Dist SFA PSV -47.5 cm/sec Prox Pop A PSV 41.0 cm/sec Prox FAWAD PSV 69.8 cm/sec Mid FAWAD PSV 15.9 cm/sec Dist FAWAD PSV -8.8 cm/sec Dist GOSPEL WORKER PSV 81.7 cm/sec Salomon Pedis PSV 35.6 cm/sec Right Side Arterial Evaluation Normal velocity and triphasic waveforms noted from the Common Femoral artery to the Posterior Tibial artery . Monophasic in the Anterior Tibial artery. 50-99 % stenosis at the Anterior Tibial artery. Ankle Brachial index is 1.17. Left Side Arterial Evaluation Normal velocity and triphasic waveforms noted in the Common Femoral artery. Biphasic in the Deep Femoral artery. No flow in the Femoral, Amputation below that level. 0-19% stenosis at the Deep Femoral artery. Severe sequential disease. Interpretation Summary Mild hemodynamically significant lesions in the right lower extremity only, on duplex imaging, at rest. 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 : ALIX KO > Alix Ko
== END ==
LOC: SP 09:41
PROVIDERS: ATTEND Surgery
DX: L97.122 Non-pressure chronic ulcer of left thigh with fat layer exposed (principal)
CPT/HCPCS: 93922; 93925

== ENCOUNTER 2017-12-23 08:40 | Inpatient (IN) | payer MEDICARE, MEDICAID ==
[2017-12-23] MEDS ORDERED: IPRATROPIUM/ALBUTEROL 0.5-2.5 MG/3 ML AMPUL NEB ONE (08:46)
[2017-12-23] MEDS ORDERED: FUROSEMIDE INJ/PF 40 MG/4 ML SDV IV ONE ×2 (08:49→12:30)
[2017-12-23 09:11] LABS: ABSOLUTE BASOPHILS # (AUTO) 0.1 10^3/uL (0.0-0.2); ABSOLUTE EOSINOPHILS # (AUTO) 0.2 10^3/uL (0.0-0.6); ABSOLUTE LYMPHOCYTES (AUTO) 2.3 10^3/uL (0.5-4.7); ABSOLUTE MONOCYTES (AUTO) 1.2 10^3/uL (0.1-1.4); ABSOLUTE NEUT (AUTO) 7.2 10^3/uL (1.7-8.2); BASOPHILS % (AUTO) 1.3 % (0-2); EOSINOPHILS % (AUTO) 1.8 % (0-6); HEMATOCRIT 38.1 % (37.9-51.0); HEMOGLOBIN 12.1 g/dL (13.5-17.0); LYMPHOCYTES % (AUTO) 20.9 % (13-45); MEAN CORPUSCULAR HGB CONC 31.7 g/dL (32.0-36.0); MEAN CORPUSCULAR VOLUME 88 fl (80-97); MONOCYTES % (AUTO) 10.6 % (3-13); PLATELET COUNT 245 10^3/uL (150-450); RED BLOOD COUNT 4.31 10^6/uL (4.35-5.55); SEGMENTED NEUTROPHILS % (AUTO) 65.4 % (42-78); TOTAL CELLS COUNTED % (AUTO) 100 %; WHITE BLOOD COUNT 10.9 10^3/uL (4.0-10.5)
--- NOTE | 2017-12-23 09:21 | RADIOLOGY REPORT (SQ) ---
EXAM DESCRIPTION: CHEST SINGLE VIEW COMPLETED DATE/TIME: 12/23/2017 9:10 am REASON FOR STUDY: sob COMPARISON: 11/08/2017 EXAM PARAMETERS: NUMBER OF VIEWS: One view. TECHNIQUE: Single frontal radiographic view of the chest acquired. RADIATION DOSE: NA LIMITATIONS: None. FINDINGS: LUNGS AND PLEURA: Diffuse bilateral parenchymal opacities in both lungs. Right pleural ef fusion. MEDIASTINUM AND HILAR STRUCTURES: No masses. Contour normal. HEART AND VASCULAR STRUCTURES: Heart slightly enlarged with perihilar haziness. BONES: No acute findings. HARDWARE: Pacemaker. OTHER: No other significant finding. IMPRESSION: Congestive heart failure with pulmonary edema. Right pleural effusion. TECHNICAL DOCUMENTATION: JOB ID: [id number] [employer]- All Rights Reserved Reading location - IP/workstation name: [email or web address]
[2017-12-23 09:32] LABS: ALANINE AMINOTRANSFERASE 45 U/L (21-72); ALBUMIN 3.4 g/dL (3.5-5.0); ALKALINE PHOSPHATASE 133 U/L (38-126); ANION GAP 10 (5-19); ASPARTATE AMINO TRANSFERASE 60 U/L (17-59); BILIRUBIN,DIRECT 0.2 mg/dL (0.0-0.4); BILIRUBIN,TOTAL 0.3 mg/dL (0.2-1.3); BLOOD UREA NITROGEN 10 mg/dL (7-20); CALCIUM 8.6 mg/dL (8.4-10.2); CARBON DIOXIDE 23 mmol/L (22-30); CHLORIDE 110 mmol/L (98-107); GLUCOSE 196 mg/dL (75-110); LIPASE 77.1 U/L (23-300); POTASSIUM 4.3 mmol/L (3.6-5.0); SODIUM 143.1 mmol/L (137-145); TOTAL PROTEIN 6.8 g/dL (6.3-8.2)
[2017-12-23 09:43] LABS: NT PRO BNP 5570 pg/mL (<450)
[2017-12-23 09:45] LABS: TROPONIN I < 0.012 ng/mL
[2017-12-23 09:54] LABS: INTERNATIONAL RATION (INR) 1.13; PARTIAL THROMBOPLASTIN TIME 31.5 SEC (23.5-35.8); PROTHROMBIN TIME 15.3 SEC (11.4-15.4)
[2017-12-23] MEDS ORDERED: NITROGLYCERIN 2% OINTMENT 1 GM PACKET TP ONE (10:17)
--- NOTE | 2017-12-23 10:20 | ER Document Report ---
ED General - General Chief Complaint: Respiratory Distress Stated Complaint: SHORTNESS OF BREATH Time Seen by Provider: 12/23/17 08:44 TRAVEL OUTSIDE OF THE [place] IN LAST 30 DAYS: No - HPI Patient complains to provider of: Shortness of breath Notes: EMS was called the patient's house today for respiratory distress. Found patient to have an SPO2 in the 70s. Patient had wheezing rales a albuterol treatment was given patient was placed on CPAP and transported to the ER upon his arrival here patient states feeling a little bit better still tachypneic and slightly hypoxic on CPAP with SPO2 of 88. Patient was transitioned to BiPAP FiO2 of 100%. Patient denies any chest pain abdominal pain nausea vomiting fevers or chills. Much of the HPI is limited due to the severity of patient's condition - Related Data Allergies/Adverse Reactions: No Known Allergies Allergy (Verified 12/23/17 09:10) Past Medical History - Social History Smoking Status: Unknown if Ever Smoked Chew tobacco use (# tins/day): No Frequency of alcohol use: Social Drug Abuse: None Family History: CAD, Hypertension Patient has suicidal ideation: No Patient has homicidal ideation: No - Past Medical History Cardiac Medical History: Reports: Hx Atrial Fibrillation, Hx Congestive Heart Failure, Hx Heart Attack, Hx Hypercholesterolemia, Hx Hypertension, Hx Peripheral Vascular Disease Renal/ Medical History: Denies: Hx Peritoneal Dialysis Psychiatric Medical History: Reports: Hx Depression Past Surgical History: Reports: Hx Cardiac Surgery - defib, CABGx3, Hx Vascular Surgery - Left AKA, Other - Status post amputation left lower extremity. Review of Systems - Review of Systems Constitutional: No symptoms reported EENT: No symptoms reported Cardiovascular: No symptoms reported Respiratory: Short of breath, Wheezing Gastrointestinal: No symptoms reported Genitourinary: No symptoms reported Male Genitourinary: No symptoms reported Musculoskeletal: No symptoms reported Skin: No symptoms reported Hematologic/Lymphatic: No symptoms reported Neurological/Psychological: No symptoms reported -: Yes All other systems reviewed and negative Physical Exam - Vital signs Vitals: Resp Pulse Ox 30 H 93 12/23/17 08:42 12/23/17 08:42 Interpretation: Tachypneic - General General appearance: Alert In distress: Moderate - HEENT Head: Normocephalic, Atraumatic Eyes: Normal Pupils: PERRL - Respiratory Respiratory status: Respiratory distress Chest status: Nontender Breath sounds: Rales, Wheezing Chest palpation: Normal - Cardiovascular Rhythm: Regular Heart sounds: Normal auscultation Murmur: No - Abdominal Inspection: Normal Distension: No distension Bowel sounds: Normal Tenderness: Nontender Organomegaly: No organomegaly - Back Back: Normal, Nontender - Extremities General upper extremity: Normal inspection, Nontender, Normal color, Normal ROM , Normal temperature General lower extremity: Normal inspection, Nontender, Normal color, Normal ROM , Normal temperature, Normal weight bearing. No: Janett's sign - Neurological Neuro grossly intact: Yes Cognition: Normal Orientation: AAOx4 Christian Coma Scale Eye Opening: Spontaneous Christian Coma Scale Verbal: Oriented Carolina Coma Scale Motor: Obeys Commands Christian Coma Scale Total: 15 Speech: Normal Motor strength normal: LUE, RUE, LLE, RLE Sensory: Normal - Psychological Associated symptoms: Normal affect, Normal mood - Skin Skin Temperature: Warm Skin Moisture: Dry Skin Color: Normal Course - Re-evaluation Re-evalutation: 12/23/17 14:36 Patient was placed on BiPAP chest x-ray is consistent with CHF exacerbation. Patient was given Lasix at the Lasix and urination patient respiratory rate did improve patient feeling much better now with complete full sentences continues to deny any abdominal pain and chest pain. Discussed with PCP will admit the patient for further evaluation. - Vital Signs Vital signs: Temp Pulse Resp BP Pulse Ox 13 131/112 H 98 12/23/17 13:20 12/23/17 11:09 12/23/17 13:20 - Laboratory Result Diagrams: 12/23/17 08:40 12/23/17 08:40 Laboratory results interpreted by me: 12/23/17 12/23/17 12/23/17 08:40 08:40 08:40 WBC 10.9 H RBC 4.31 L Hgb 12.1 L MCHC 31.7 L RDW 17.0 H Chloride 110 H Glucose 196 H AST 60 H Alkaline Phosphatase 133 H NT-Pro-B Natriuret Pep 5570 H Albumin 3.4 L Urine Blood 12/23/17 10:30 WBC RBC Hgb MCHC RDW Chloride Glucose AST Alkaline Phosphatase NT-Pro-B Natriuret Pep Albumin Urine Blood SMALL H Critical Care Note - Critical Care Note Total time excluding time spent on procedures (mins): 35 Comments: Multiple evaluation managing patient with respiratory distress requiring BiPAP Discharge - Discharge Clinical Impression: Acute respiratory failure Qualifiers: Respiratory failure complication: unspecified whether with hypoxia or hypercapnia Qualified Code(s): J96.00 - Acute respiratory failure, unspecified whether with hypoxia or hypercapnia Congestive heart failure Qualifiers: Heart failure type: unspecified Heart failure chronicity: unspecified Qualified Code(s): I50.9 - Heart failure, unspecified Condition: Good Disposition: ADMITTED INPATIENT Admitting Provider: Deannaks Unit Admitted: [facility]
--- NOTE | 2017-12-23 10:20 | EKG REPORT ---
SEVERITY:- ABNORMAL ECG - SINUS TACHYCARDIA LEFT ATRIAL ABNORMALITY ANTERIOR INFARCT, OLD : Confirmed by: Alex Hurtado MD 23-Dec-2017 10:19:30
[2017-12-23 11:01] LABS: APPEARANCE,URINE CLEAR; BILIRUBIN,URINE NEGATIVE (NEGATIVE); COLOR,URINE STRAW; GLUCOSE, URINE NEGATIVE (NEGATIVE); KETONES,URINE NEGATIVE (NEGATIVE); URINE SPECIFIC GRAVITY 1.005
[2017-12-23 11:02] LABS: LEUKOCYTE ESTERASE,URINE NEGATIVE (NEGATIVE); NITRITE,URINE NEGATIVE (NEGATIVE); PROTEIN,URINE NEGATIVE (NEGATIVE); UROBILINOGEN,URINE NEGATIVE mg/dL (<2.0)
[2017-12-23 11:21] LABS: URINE AMPHETAMINES SCREEN NEGATIVE; URINE BARBITURATES SCREEN NEGATIVE; URINE BENZODIAZEPINES SCREEN NEGATIVE; URINE COCAINE SCREEN NEGATIVE; URINE MARIJUANA (THC) SCREEN UNCONFIRMED POSITIVE; URINE METHADONE SCREEN NEGATIVE; URINE PHENCYCLIDINE SCREEN NEGATIVE
[2017-12-23 11:44] LABS: VENOUS BLOOD BASE EXCESS -1.3 mmol/L; VENOUS BLOOD HCO3 25.8 mmol/L (20-32); VENOUS BLOOD PH 7.31 (7.30-7.42)
[2017-12-23] MEDS ORDERED: AMIODARONE HCL 200 MG TABLET PO ONE (12:30)
[2017-12-23] MEDS ORDERED: APIXABAN 5 MG TABLET PO ONE (12:30)
[2017-12-23] MEDS ORDERED: (PENDING PHARMACY ID) (Lansoprazole [Prevacid] 30 MG) PO SCH (12:30)
[2017-12-23] MEDS ORDERED: SACUBITRIL/VALSARTAN 49 MG/51 MG TABLET PO ONE ×2 (12:45→21:30)
[2017-12-23] MEDS ORDERED: TAMSULOSIN HCL 0.4 MG CAP.SR.24H PO ONE (13:00)
[2017-12-23] MEDS ORDERED: CARVEDILOL 12.5 MG TABLET PO ONE (13:00)
[2017-12-23 13:16] LABS: INTERNATIONAL RATION (INR) 1.03; PARTIAL THROMBOPLASTIN TIME 30.9 SEC (23.5-35.8); PROTHROMBIN TIME 14.2 SEC (11.4-15.4)
[2017-12-23 13:31] LABS: ALANINE AMINOTRANSFERASE 56 U/L (21-72); ALBUMIN 3.5 g/dL (3.5-5.0); ALKALINE PHOSPHATASE 129 U/L (38-126); ASPARTATE AMINO TRANSFERASE 52 U/L (17-59); BILIRUBIN,DIRECT 0.2 mg/dL (0.0-0.4); BILIRUBIN,TOTAL 0.4 mg/dL (0.2-1.3); CREATINE KINASE 90 U/L (55-170); DIGOXIN 0.61 ng/mL (0.8-2.0); TOTAL PROTEIN 6.8 g/dL (6.3-8.2)
[2017-12-23 13:44] LABS: FREE T4 (FREE THYROXINE) 2.34 ng/dL (0.78-2.19)
[2017-12-23 13:53] LABS: TROPONIN I 0.047 ng/mL
[2017-12-23 13:59] LABS: THYROID STIMULATING HORMONE 1.96 uIU/mL (0.47-4.68)
[2017-12-23 14:01] LABS: ARTERIAL BLOOD BASE EXCESS 1.3 mmol/L; ARTERIAL BLOOD HCO3 25.7 mmol/L (20-26); ARTERIAL BLOOD O2 SATURATION 92.7 % (94-98); ARTERIAL BLOOD PCO2 39.9 mmHg (35-45); ARTERIAL BLOOD PH 7.43 (7.35-7.45); ARTERIAL BLOOD TOTAL CO2 26.9 mmol/L (23-27)
[2017-12-23 14:02] LABS: ARTERIAL BLOOD FIO2 40%
[2017-12-23] MEDS ORDERED: LANSOPRAZOLE 30 MG TAB.RAP.DR PO ONE (14:30)
--- NOTE | 2017-12-23 17:07 | PDOC H&P ---
History of Present Illness Admission Date/PCP: 12/23/17 10:34 CAYETANO RAY MD History of Present Illness: MOHAN BALLESTEROS JR is a 77 year old male, he has a history of chronic systolic and diastolic heart failure, chronic atrial fibrillation, peripheral vascular disease, status post amputation of left leg, he came to the emergency room for evaluation of shortness of breath. In the emergency room he was evaluated, a chest x-ray was done, it showed congestive heart failure pattern with diffuse bilateral parenchymal opacities in both lungs, the BNP was elevated consistent with acute systolic heart failure. The last time he was admitted in this hospital was October 30, 2017, at that time a 2D echo was done, the ejection fraction was 35-40%. I saw patient emergency room, he required noninvasive positive pressure ventilation with BiPAP presently stable not in any distress, he will be admitted into intermediate care unit to be treated for the acute systolic heart failure. Past Medical History Cardiac Medical History: Reports: Atrial Fibrillation, Congestive Heart Failure , Myocardial Infarction, Hyperlipidema, Hypertension, Peripheral Vascular Disease Psychiatric Medical History: Reports: Depression Past Surgical History Past Surgical History: Reports: Cardiac Catheterization, Coronary Artery Bypass Graft, Vascular Surgery - Left AKA, Other - Status post amputation left lower extremity. Social History Smoking Status: Current Every Day Smoker Drugs: Marijuana - Advance Directive Resuscitation Status: Full Code Family History Family History: CAD, Hypertension Parental Family History Reviewed: Yes Children Family History Reviewed: Yes Sibling(s) Family History Reviewed.: Yes Medication/Allergy Home Medications: Amiodarone HCl [Cordarone 200 mg Tablet] 200 mg PO Q12 12/23/17 Apixaban [Eliquis 5 mg Tablet] 5 mg PO Q12 12/23/17 Atorvastatin Calcium [Lipitor 40 mg Tablet] 40 mg PO DAILY 12/23/17 Carvedilol [Coreg 12.5 mg Tablet] 12.5 mg PO Q12 12/23/17 Furosemide [Lasix 40 mg Tablet] 40 mg PO QAM 12/23/17 Ibuprofen [Motrin 600 mg Tablet] 600 mg PO Q8HP PRN 12/23/17 Lansoprazole [Prevacid] 30 mg PO Q6AM 12/23/17 Potassium Chloride [Klor-Con 10 Meq Tablet.sa] 20 meq PO DAILY 12/23/17 Sacubitril/Valsartan [Entresto 49 mg-51 mg Tablet] 1 tab PO Q12 12/23/17 Tamsulosin HCl [Flomax 0.4 mg Cap.sr] 0.4 mg PO DAILY 12/23/17 Torsemide [Demadex 20 mg Tablet] 10 mg PO DAILY 12/23/17 Allergies/Adverse Reactions: No Known Allergies Allergy (Verified 12/23/17 09:10) Review of Systems Constitutional: ABSENT: as per HPI, anorexia, chills, fatigue, fever(s), headache(s), night sweats, weakness, weight gain, weight loss, other Eyes: ABSENT: visual disturbances Ears: ABSENT: hearing changes Cardiovascular: PRESENT: dyspnea on exertion, edema Respiratory: PRESENT: cough, dyspnea Gastrointestinal: ABSENT: abdominal pain, constipation, diarrhea, hematemesis, hematochezia, nausea, vomiting Genitourinary: ABSENT: dysuria, hematuria Musculoskeletal: ABSENT: joint swelling Integumentary: ABSENT: rash, wounds Neurological: ABSENT: abnormal gait, abnormal speech, confusion, dizziness, focal weakness, syncope Psychiatric: ABSENT: anxiety, depression, homidical ideation, suicidal ideation Endocrine: ABSENT: cold intolerance, heat intolerance, menstrual abnormalities, polydipsia, polyuria Hematologic/Lymphatic: ABSENT: easy bleeding, easy bruising, lymphadenopathy Physical Exam Vital Signs: Temp Pulse Resp BP Pulse Ox 92 20 158/96 H 95 12/23/17 15:56 12/23/17 15:56 12/23/17 14:01 12/23/17 15:56 Intake & Output 12/22/17 12/23/17 12/24/17 06:59 06:59 06:59 Output Total 1100 Balance -1100 Weight 68.039 kg General appearance: PRESENT: mild distress Head exam: PRESENT: atraumatic, normocephalic Eye exam: PRESENT: conjunctiva pink, EOMI, PERRLA Mouth exam: PRESENT: moist, tongue midline Neck exam: PRESENT: full ROM Respiratory exam: PRESENT: crackles Cardiovascular exam: PRESENT: RRR, +S1, +S2 Vascular exam: PRESENT: normal capillary refill GI/Abdominal exam: PRESENT: normal bowel sounds, soft Rectal exam: PRESENT: deferred Extremities exam: PRESENT: left BKA Neurological exam: PRESENT: alert, CN II-XII grossly intact Psychiatric exam: PRESENT: appropriate affect, normal mood Skin exam: PRESENT: dry, intact, warm. ABSENT: cyanosis, rash Results Laboratory Results: 12/23/17 12/23/17 12/23/17 11:05 11:05 12:57 Carbonic Acid HCO3/H2CO3 Ratio ABG pH ABG pCO2 ABG pO2 ABG HCO3 ABG O2 Saturation ABG Base Excess VBG pH 7.31 VBG pCO2 53.0 VBG HCO3 25.8 VBG Base Excess -1.3 FiO2 Lactic Acid 2.4 H Magnesium 1.8 Total Bilirubin 0.4 AST 52 ALT 56 Alkaline Phosphatase 129 H Total Protein 6.8 Albumin 3.5 TSH Free T4 12/23/17 12/23/17 12/23/17 12:57 13:40 15:56 Carbonic Acid 1.20 HCO3/H2CO3 Ratio 21:1 ABG pH 7.43 ABG pCO2 39.9 ABG pO2 63.0 L ABG HCO3 25.7 ABG O2 Saturation 92.7 L ABG Base Excess 1.3 VBG pH VBG pCO2 VBG HCO3 VBG Base Excess FiO2 40% Lactic Acid 1.7 Magnesium Total Bilirubin AST ALT Alkaline Phosphatase Total Protein Albumin TSH 1.96 Free T4 2.34 H 12/23/17 12/23/17 12:57 12:57 Creatine Kinase 90 Troponin I 0.047 NT-Pro-B Natriuret Pep 8140 H Impressions: Chest X-Ray 12/23/17 08:44 IMPRESSION: Congestive heart failure with pulmonary edema. Right pleural effusion. Assessment & Plan - Diagnosis (1) Acute systolic heart failure Is this a current diagnosis for this admission?: Yes Plan: Patient is admitted for the management of acute systolic heart failure, he will be continued on his regular CHF medications, IV Lasix 40 mg every 12 hours (2) Acute hypoxemic respiratory failure Is this a current diagnosis for this admission?: Yes Plan: Patient developed acute hypoxemic respiratory failure due to acute systolic heart failure, requiring noninvasive positive pressure ventilation with BiPAP (3) Acute on chronic systolic heart failure Is this a current diagnosis for this admission?: Yes Plan: He developed decompensated chronic systolic heart failure, we need to rule out acute VT with serial enzymes, the precipitating etiology of the acute systolic heart failure is not clear (4) Chronic atrial fibrillation Is this a current diagnosis for this admission?: Yes Plan: We will continue anticoagulation with Eliquis for stroke prophylaxis
[2017-12-23] MEDS ORDERED: SACUBITRIL/VALSARTAN 97 MG/103 MG TABLET PO ONE (19:00)
[2017-12-23] MEDS ORDERED: ISOSORB DINIT/HYDRALAZINE HCL 20-37.5 MG TABLET PO ONE (19:30)
[2017-12-23] MEDS: ATORVASTATIN CALCIUM 40 MG TABLET PO SCH (21:53)
[2017-12-23] MEDS: APIXABAN 5 MG TABLET PO SCH (21:53)
[2017-12-23] MEDS: CARVEDILOL 12.5 MG TABLET PO SCH (21:53)
[2017-12-23] MEDS: AMIODARONE HCL 200 MG TABLET PO SCH (21:53)
[2017-12-23] MEDS: FUROSEMIDE INJ/PF 40 MG/4 ML SDV IV SCH (21:53)
[2017-12-23] MEDS ORDERED: CARVEDILOL 12.5 MG TABLET PO SCH (22:00)
[2017-12-23] MEDS ORDERED: SACUBITRIL/VALSARTAN 49 MG/51 MG TABLET PO SCH (22:00)
[2017-12-24] MEDS: LANSOPRAZOLE 30 MG TAB.RAP.DR PO SCH (06:18)
[2017-12-24] MEDS: ISOSORB DINIT/HYDRALAZINE HCL 20-37.5 MG TABLET PO SCH ×3 (06:18→21:11)
[2017-12-24 07:30] LABS: ABSOLUTE BASOPHILS # (AUTO) 0.1 10^3/uL (0.0-0.2); ABSOLUTE LYMPHOCYTES (AUTO) 0.8 10^3/uL (0.5-4.7); ABSOLUTE NEUT (AUTO) 7.1 10^3/uL (1.7-8.2); EOSINOPHILS % (AUTO) 0.5 % (0-6); HEMATOCRIT 34.8 % (37.9-51.0); HEMOGLOBIN 11.2 g/dL (13.5-17.0); LYMPHOCYTES % (AUTO) 8.4 % (13-45); MEAN CORPUSCULAR HEMOGLOBIN 27.5 pg (27.0-33.4); MEAN CORPUSCULAR HGB CONC 32.1 g/dL (32.0-36.0); MEAN CORPUSCULAR VOLUME 86 fl (80-97); MONOCYTES % (AUTO) 11.1 % (3-13); PLATELET COUNT 216 10^3/uL (150-450); RED BLOOD COUNT 4.06 10^6/uL (4.35-5.55); RED CELL DISTRIBUTION WIDTH 16.4 % (11.5-14.0); TOTAL CELLS COUNTED % (AUTO) 100 %
[2017-12-24 08:04] LABS: ANION GAP 8 (5-19); BLOOD UREA NITROGEN 14 mg/dL (7-20); CALCIUM 8.6 mg/dL (8.4-10.2); CARBON DIOXIDE 27 mmol/L (22-30); CHLORIDE 105 mmol/L (98-107); CHOLESTEROL 129.51 mg/dL (0-200); GLUCOSE 114 mg/dL (75-110); POTASSIUM 3.8 mmol/L (3.6-5.0); SODIUM 139.6 mmol/L (137-145); TRIGLYCERIDES 53 mg/dL (<150)
[2017-12-24 08:15] LABS: DIRECT LDL 73 mg/dL (<100)
[2017-12-24] MEDS ORDERED: SACUBITRIL/VALSARTAN 97 MG/103 MG TABLET PO SCH (10:00)
[2017-12-24] MEDS: FUROSEMIDE INJ/PF 40 MG/4 ML SDV IV SCH ×2 (10:28→21:12)
[2017-12-24] MEDS: APIXABAN 5 MG TABLET PO SCH ×2 (10:28→21:12)
[2017-12-24] MEDS: TAMSULOSIN HCL 0.4 MG CAP.SR.24H PO SCH (10:28)
[2017-12-24] MEDS: AMIODARONE HCL 200 MG TABLET PO SCH ×2 (10:28→21:12)
[2017-12-24] MEDS: CARVEDILOL 12.5 MG TABLET PO SCH ×2 (12:25→21:11)
[2017-12-24] MEDS: SACUBITRIL/VALSARTAN 49 MG/51 MG TABLET PO SCH ×2 (12:25→17:24)
--- NOTE | 2017-12-24 14:47 | PDOC PROGRESS REPORT ---
Subjective Progress Note for:: 12/24/17 Subjective:: He was seen by the bedside, he was admitted yesterday when he presented with acute hypoxemic respiratory failure due to acute systolic heart failure. He has multiple ulcers in the right leg and the amputated left leg he also has overall shape looks infected the ulcer on the left leg we require collagenase because there are areas of sloughs that needs to be debrided Reason For Visit: ACUTE SYSTOLIC HEART FAILURE Physical Exam Vital Signs: Temp Pulse Resp BP Pulse Ox 99.0 F 63 19 112/70 100 12/24/17 11:51 12/24/17 11:51 12/24/17 11:51 12/24/17 11:51 12/24/17 11:51 Intake & Output 12/23/17 12/24/17 12/25/17 06:59 06:59 06:59 Intake Total 235 236 Output Total 2400 600 Balance -2165 -364 Weight 63 kg General appearance: PRESENT: no acute distress Eye exam: PRESENT: PERRLA Respiratory exam: PRESENT: rales Cardiovascular exam: PRESENT: +S1, +S2 Extremities exam: PRESENT: left AKA, other - Multiple ulcers affecting the right leg and the left leg Neurological exam: PRESENT: alert Results Laboratory Results: 12/24/17 06:43 12/24/17 06:43 12/23/17 12/24/17 12/24/17 15:56 06:43 06:43 WBC 9.0 RBC 4.06 L Hgb 11.2 L Hct 34.8 L MCV 86 MCH 27.5 MCHC 32.1 RDW 16.4 H Plt Count 216 Seg Neutrophils % 79.0 H Lymphocytes % 8.4 L Monocytes % 11.1 Eosinophils % 0.5 Basophils % 1.0 Absolute Neutrophils 7.1 Absolute Lymphocytes 0.8 Absolute Monocytes 1.0 Absolute Eosinophils 0.0 Absolute Basophils 0.1 Sodium 139.6 Potassium 3.8 Chloride 105 Carbon Dioxide 27 Anion Gap 8 BUN 14 Creatinine 1.00 Est GFR ( Amer) > 60 Est GFR (Non-Af Amer) > 60 Glucose 114 H Lactic Acid 1.7 Calcium 8.6 Triglycerides 53 Cholesterol 129.51 LDL Cholesterol Direct 73 VLDL Cholesterol 11.0 HDL Cholesterol 46 12/23/17 12/23/17 12/23/17 12:57 12:57 18:20 Creatine Kinase 90 128 Troponin I 0.047 NT-Pro-B Natriuret Pep 8140 H 12/23/17 12/23/17 12/24/17 18:20 19:20 00:22 Creatine Kinase 38 L Troponin I Cancelled 0.059 NT-Pro-B Natriuret Pep 12/24/17 00:22 Creatine Kinase Troponin I 0.064 NT-Pro-B Natriuret Pep Impressions: Chest X-Ray 12/23/17 08:44 IMPRESSION: Congestive heart failure with pulmonary edema. Right pleural effusion. Assessment & Plan - Diagnosis (1) Acute systolic heart failure Is this a current diagnosis for this admission?: Yes Plan: Decrease the dose of IV furosemide to once a day, yesterday he was started on BiDil,in addition to the entresto (2) Acute hypoxemic respiratory failure Is this a current diagnosis for this admission?: Yes (3) Acute on chronic systolic heart failure Is this a current diagnosis for this admission?: Yes (4) Chronic atrial fibrillation Is this a current diagnosis for this admission?: Yes (5) Ischemic ulcer of left thigh, limited to breakdown of skin Is this a current diagnosis for this admission?: Yes (6) Ischemic ulcer of lower extremity Is this a current diagnosis for this admission?: Yes Plan: Topical dressing of these ulcers
--- NOTE | 2017-12-24 16:01 | RADIOLOGY REPORT (SQ) ---
EXAM DESCRIPTION: CHEST SINGLE VIEW COMPLETED DATE/TIME: 12/24/2017 3:50 pm REASON FOR STUDY: CHF COMPARISON: 12/23/2017. EXAM PARAMETERS: NUMBER OF VIEWS: One view. TECHNIQUE: Single frontal radiographic view of the chest acquired. RADIATION DOSE: NA LIMITATIONS: None. FINDINGS: LUNGS AND PLEURA: Improved aeration with almost complete clearing of the previously seen p ulmonary edema. Small right pleural effusion. MEDIASTINUM AND HILAR STRUCTURES: No masses. Contour normal. HEART AND VASCULAR STRUCTURES: Mild cardiomegaly. BONES: No acute findings. HARDWARE: Defibrillator. OTHER: No other significant finding. IMPRESSION: IMPROVED APPEARANCE OF THE CHEST WITH ALMOST COMPLETE CLEARING OF THE PREVIOUSLY SEEN PU LMONARY EDEMA. SMALL RIGHT PLEURAL EFFUSION. TECHNICAL DOCUMENTATION: JOB ID: [id number] [employer]- All Rights Reserved Reading location - IP/workstation name: [email or web address]
[2017-12-24] MEDS ORDERED: ACETAMINOPHEN 325 MG TABLET PO PRN (19:34)
[2017-12-24] MEDS ORDERED: NYSTATIN CREAM 15 GM TP ONE (20:00)
[2017-12-24] MEDS: ATORVASTATIN CALCIUM 40 MG TABLET PO SCH (21:12)
[2017-12-25] MEDS: ISOSORB DINIT/HYDRALAZINE HCL 20-37.5 MG TABLET PO SCH ×3 (05:33→22:36)
[2017-12-25] MEDS: LANSOPRAZOLE 30 MG TAB.RAP.DR PO SCH (05:34)
[2017-12-25 06:31] LABS: ABSOLUTE BASOPHILS # (AUTO) 0.1 10^3/uL (0.0-0.2); ABSOLUTE LYMPHOCYTES (AUTO) 1.3 10^3/uL (0.5-4.7); ABSOLUTE MONOCYTES (AUTO) 1.3 10^3/uL (0.1-1.4); BASOPHILS % (AUTO) 1.1 % (0-2); EOSINOPHILS % (AUTO) 0.5 % (0-6); HEMATOCRIT 33.7 % (37.9-51.0); HEMOGLOBIN 10.9 g/dL (13.5-17.0); LYMPHOCYTES % (AUTO) 14.5 % (13-45); MEAN CORPUSCULAR HEMOGLOBIN 27.7 pg (27.0-33.4); MEAN CORPUSCULAR HGB CONC 32.4 g/dL (32.0-36.0); MEAN CORPUSCULAR VOLUME 85 fl (80-97); MONOCYTES % (AUTO) 14.9 % (3-13); PLATELET COUNT 179 10^3/uL (150-450); RED BLOOD COUNT 3.95 10^6/uL (4.35-5.55); RED CELL DISTRIBUTION WIDTH 16.1 % (11.5-14.0); TOTAL CELLS COUNTED % (AUTO) 100 %; WHITE BLOOD COUNT 8.6 10^3/uL (4.0-10.5)
[2017-12-25] MEDS ORDERED: FUROSEMIDE INJ/PF 40 MG/4 ML SDV IV SCH (10:00)
[2017-12-25] MEDS: CARVEDILOL 12.5 MG TABLET PO SCH ×2 (10:55→22:35)
[2017-12-25] MEDS: TAMSULOSIN HCL 0.4 MG CAP.SR.24H PO SCH (10:55)
[2017-12-25] MEDS: AMIODARONE HCL 200 MG TABLET PO SCH ×2 (10:56→22:36)
[2017-12-25] MEDS: APIXABAN 5 MG TABLET PO SCH ×2 (10:56→22:37)
[2017-12-25] MEDS: NYSTATIN CREAM 15 GM TP SCH (10:56)
[2017-12-25] MEDS: SACUBITRIL/VALSARTAN 49 MG/51 MG TABLET PO SCH ×2 (10:56→17:24)
[2017-12-25] MEDS: FUROSEMIDE 40 MG TABLET PO SCH (10:56)
[2017-12-25] MEDS: COLLAGENASE CLOSTRIDIUM HIST. OINT 30 GM TOP SCH (10:56)
[2017-12-25 15:47] LABS: ALANINE AMINOTRANSFERASE 37 U/L (21-72); ALBUMIN 2.7 g/dL (3.5-5.0); ALKALINE PHOSPHATASE 89 U/L (38-126); ANION GAP 5 (5-19); ASPARTATE AMINO TRANSFERASE 27 U/L (17-59); BILIRUBIN,DIRECT 0.2 mg/dL (0.0-0.4); BILIRUBIN,TOTAL 0.4 mg/dL (0.2-1.3); BLOOD UREA NITROGEN 15 mg/dL (7-20); CALCIUM 8.6 mg/dL (8.4-10.2); CARBON DIOXIDE 32 mmol/L (22-30); CHLORIDE 102 mmol/L (98-107); GLUCOSE 114 mg/dL (75-110); POTASSIUM 3.2 mmol/L (3.6-5.0); SODIUM 138.7 mmol/L (137-145); TOTAL PROTEIN 5.7 g/dL (6.3-8.2)
--- NOTE | 2017-12-25 16:40 | PDOC PROGRESS REPORT ---
Subjective Progress Note for:: 12/25/17 Subjective:: Patient was seen by the bedside, he has no new complaints today Reason For Visit: ACUTE SYSTOLIC HEART FAILURE Physical Exam Vital Signs: Temp Pulse Resp BP Pulse Ox 98.7 F 60 17 102/66 100 12/25/17 11:28 12/25/17 14:00 12/25/17 11:28 12/25/17 11:28 12/25/17 11:28 Intake & Output 12/24/17 12/25/17 12/26/17 06:59 06:59 06:59 Intake Total 235 696 193 Output Total 2400 1300 Balance -2163 -604 193 Weight 63 kg 65.1 kg General appearance: PRESENT: no acute distress Eye exam: PRESENT: PERRLA Respiratory exam: PRESENT: clear to auscultation srikanth Cardiovascular exam: PRESENT: +S1, +S2 Neurological exam: PRESENT: alert, CN II-XII grossly intact Results Laboratory Results: 12/25/17 05:54 12/25/17 05:54 12/25/17 12/25/17 05:54 05:54 WBC 8.6 RBC 3.95 L Hgb 10.9 L Hct 33.7 L MCV 85 MCH 27.7 MCHC 32.4 RDW 16.1 H Plt Count 179 Seg Neutrophils % 69.0 Lymphocytes % 14.5 Monocytes % 14.9 H Eosinophils % 0.5 Basophils % 1.1 Absolute Neutrophils 6.0 Absolute Lymphocytes 1.3 Absolute Monocytes 1.3 Absolute Eosinophils 0.0 Absolute Basophils 0.1 Sodium 138.7 Potassium 3.2 L Chloride 102 Carbon Dioxide 32 H Anion Gap 5 BUN 15 Creatinine 1.02 Est GFR ( Amer) > 60 Est GFR (Non-Af Amer) > 60 Glucose 114 H Calcium 8.6 Total Bilirubin 0.4 AST 27 ALT 37 Alkaline Phosphatase 89 Total Protein 5.7 L Albumin 2.7 L 12/23/17 12/23/17 12/23/17 12:57 12:57 18:20 Creatine Kinase 90 128 Troponin I 0.047 NT-Pro-B Natriuret Pep 8140 H 12/23/17 12/23/17 12/24/17 18:20 19:20 00:22 Creatine Kinase 38 L Troponin I Cancelled 0.059 NT-Pro-B Natriuret Pep 12/24/17 00:22 Creatine Kinase Troponin I 0.064 NT-Pro-B Natriuret Pep Impressions: Chest X-Ray 12/24/17 00:00 IMPRESSION: IMPROVED APPEARANCE OF THE CHEST WITH ALMOST COMPLETE CLEARING OF THE PREVIOUSLY SEEN PULMONARY EDEMA. SMALL RIGHT PLEURAL EFFUSION. Assessment & Plan - Diagnosis (1) Acute systolic heart failure Is this a current diagnosis for this admission?: Yes (2) Acute hypoxemic respiratory failure Is this a current diagnosis for this admission?: Yes (3) Acute on chronic systolic heart failure Is this a current diagnosis for this admission?: Yes (4) Chronic atrial fibrillation Is this a current diagnosis for this admission?: Yes (5) Ischemic ulcer of left thigh, limited to breakdown of skin Is this a current diagnosis for this admission?: Yes (6) Ischemic ulcer of lower extremity Is this a current diagnosis for this admission?: Yes - Plan Summary Plan Summary: Continue treatment
[2017-12-25] MEDS ORDERED: POTASSIUM CHLORIDE 10 MEQ TABLET.SA PO ONE (17:30)
[2017-12-25] MEDS: ATORVASTATIN CALCIUM 40 MG TABLET PO SCH (22:33)
[2017-12-26] MEDS: ISOSORB DINIT/HYDRALAZINE HCL 20-37.5 MG TABLET PO SCH ×2 (06:13→15:07)
[2017-12-26] MEDS: LANSOPRAZOLE 30 MG TAB.RAP.DR PO SCH (06:13)
[2017-12-26] MEDS: NYSTATIN CREAM 15 GM TP SCH (10:58)
[2017-12-26] MEDS: CARVEDILOL 12.5 MG TABLET PO SCH (10:58)
[2017-12-26] MEDS: APIXABAN 5 MG TABLET PO SCH (10:58)
[2017-12-26] MEDS: AMIODARONE HCL 200 MG TABLET PO SCH (10:58)
[2017-12-26] MEDS: COLLAGENASE CLOSTRIDIUM HIST. OINT 30 GM TOP SCH (10:58)
[2017-12-26] MEDS: TAMSULOSIN HCL 0.4 MG CAP.SR.24H PO SCH (10:58)
[2017-12-26] MEDS: SACUBITRIL/VALSARTAN 49 MG/51 MG TABLET PO SCH ×2 (10:58→17:23)
[2017-12-26] MEDS: FUROSEMIDE 40 MG TABLET PO SCH (10:58)
[2017-12-26 18:14] VITALS: BP 161/90
--- NOTE | 2017-12-26 20:21 | PDOC DISCHARGE SUMMARY ---
General - Admit/Disc Date/PCP Admission Date/Primary Care Provider: 12/23/17 10:34 CAYETANO RAY MD Discharge Date: 12/26/17 - Discharge Diagnosis (1) Acute systolic heart failure Is this a current diagnosis for this admission?: Yes (2) Acute hypoxemic respiratory failure Is this a current diagnosis for this admission?: Yes (3) Acute on chronic systolic heart failure Is this a current diagnosis for this admission?: Yes (4) Chronic atrial fibrillation Is this a current diagnosis for this admission?: Yes (5) Ischemic ulcer of left thigh, limited to breakdown of skin Is this a current diagnosis for this admission?: Yes (6) Ischemic ulcer of lower extremity Is this a current diagnosis for this admission?: Yes - Additional Information Resuscitation Status: Full Code Discharge Diet: Cardiac Discharge Activity: Activity As Tolerated, Balance Activity w/Rest Prescriptions: Carvedilol [Coreg 12.5 mg Tablet] 25 mg PO Q12 #60 tablet Furosemide [Lasix 40 mg Tablet] 20 mg PO DAILY #30 tablet Isosorb Dinit/Hydralazine HCl [Bidil 20-37.5 mg Tablet] 1 tab PO Q8 #90 tablet Nystatin [Mycostatin Cream 15 gm] 1 applic TP DAILY #2 tube Sacubitril/Valsartan [Entresto 97 mg/103 mg Tablet] 1 tab PO BID #60 tablet Home Medications: Amiodarone HCl [Cordarone 200 mg Tablet] 200 mg PO Q12 12/23/17 Apixaban [Eliquis 5 mg Tablet] 5 mg PO Q12 12/23/17 Atorvastatin Calcium [Lipitor 40 mg Tablet] 40 mg PO DAILY 12/23/17 Lansoprazole [Prevacid] 30 mg PO Q6AM 12/23/17 Tamsulosin HCl [Flomax 0.4 mg Cap.sr] 0.4 mg PO DAILY 12/23/17 Carvedilol [Coreg 12.5 mg Tablet] 25 mg PO Q12 #60 tablet 12/26/17 Furosemide [Lasix 40 mg Tablet] 20 mg PO DAILY #30 tablet 12/26/17 Isosorb Dinit/Hydralazine HCl [Bidil 20-37.5 mg Tablet] 1 tab PO Q8 #90 tablet 12/26/17 Nystatin [Mycostatin Cream 15 gm] 1 applic TP DAILY #2 tube 12/26/17 Sacubitril/Valsartan [Entresto 97 mg/103 mg Tablet] 1 tab PO BID #60 tablet 12/10 History of Present Illness History of Present Illness: MOHAN BALLESTEROS JR is a 77 year old male, he has a history of chronic systolic and diastolic heart failure, chronic atrial fibrillation, peripheral vascular disease, status post amputation of left leg, he came to the emergency room for evaluation of shortness of breath. In the emergency room he was evaluated, a chest x-ray was done, it showed congestive heart failure pattern with diffuse bilateral parenchymal opacities in both lungs, the BNP was elevated consistent with acute systolic heart failure. The last time he was admitted in this hospital was October 30, 2017, at that time a 2D echo was done, the ejection fraction was 35-40%. I saw patient emergency room, he required noninvasive positive pressure ventilation with BiPAP presently stable not in any distress, he will be admitted into intermediate care unit to be treated for the acute systolic heart failure. Hospital Course Hospital Course: Patient was admitted for the management of acute systolic heart failure, he presented with shortness of breath, he was evaluated in the emergency room, chest x-ray was done, it showed diffuse bilateral pulmonary edema there was associated acute hypoxemic respiratory failure, he was treated with noninvasive positive pressure ventilation, BiPAP he also received diuretic. The medications were adjusted, the dose of entresto was increased, he was started on BiDil and the dose of Coreg was increased. 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 Patient improved currently with treatment subsequent chest x-ray showed complete resolution of the pulmonary edema. Physical Exam Vital Signs: Temp Pulse Resp BP Pulse Ox 98.8 F 58 L 18 161/90 H 99 12/26/17 18:12 12/26/17 18:12 12/26/17 18:12 12/26/17 18:12 12/26/17 18:12 Intake & Output 12/25/17 12/26/17 12/27/17 06:59 06:59 06:59 Intake Total 696 703 318 Output Total 1300 600 500 Balance -604 103 -182 Weight 65.1 kg 65 kg General appearance: PRESENT: no acute distress, well-developed, well-nourished Head exam: PRESENT: atraumatic, normocephalic Eye exam: PRESENT: conjunctiva pink, EOMI, PERRLA Ear exam: PRESENT: normal external ear exam Mouth exam: PRESENT: moist, tongue midline Neck exam: PRESENT: full ROM Respiratory exam: PRESENT: clear to auscultation srikanth Cardiovascular exam: PRESENT: RRR, +S1, +S2 Pulses: PRESENT: normal dorsalis pedis pul, +2 pedal pulses bilateral Vascular exam: PRESENT: normal capillary refill GI/Abdominal exam: PRESENT: normal bowel sounds, soft Rectal exam: PRESENT: deferred Neurological exam: PRESENT: alert, awake, oriented to person, oriented to place , oriented to time, oriented to situation, CN II-XII grossly intact Psychiatric exam: PRESENT: appropriate affect, normal mood Skin exam: PRESENT: dry, intact, warm Results Laboratory Results: 12/25/17 05:54 12/25/17 05:54 12/23/17 12/23/17 12/23/17 12:57 12:57 18:20 Creatine Kinase 90 128 Troponin I 0.047 NT-Pro-B Natriuret Pep 8140 H 12/23/17 12/23/17 12/24/17 18:20 19:20 00:22 Creatine Kinase 38 L Troponin I Cancelled 0.059 NT-Pro-B Natriuret Pep 12/24/17 00:22 Creatine Kinase Troponin I 0.064 NT-Pro-B Natriuret Pep Impressions: Chest X-Ray 12/24/17 00:00 IMPRESSION: IMPROVED APPEARANCE OF THE CHEST WITH ALMOST COMPLETE CLEARING OF THE PREVIOUSLY SEEN PULMONARY EDEMA. SMALL RIGHT PLEURAL EFFUSION. Qualifiers - * PATEINT BEING DISCHARGED WITH ANY OF THE FOLLOWING DIAGNOSIS?: No
== END 2017-12-26 19:45 | disposition home or self-care (01) | DRG 291 ==
LOC: ER 08:40 → EH 10:34 → 3S 16:33
PROVIDERS: ADMIT Internal Medicine; ATTEND Internal Medicine
DX: I11.0 Hypertensive heart disease with heart failure (principal); J96.01 Acute respiratory failure with hypoxia; L97.919 Non-pressure chronic ulcer of unspecified part of right lower leg with unspecified severity; L97.121 Non-pressure chronic ulcer of left thigh limited to breakdown of skin; I50.23 Acute on chronic systolic (congestive) heart failure; I48.2 Chronic atrial fibrillation; I73.9 Peripheral vascular disease, unspecified; F17.210 Nicotine dependence, cigarettes, uncomplicated; I25.2 Old myocardial infarction; Z89.612 Acquired absence of left leg above knee; Z79.01 Long term (current) use of anticoagulants; Z79.899 Other long term (current) drug therapy
CPT/HCPCS: 36415; 36600; 71045; 80048; 80053; 80061; 80076; 80162; 80307; 81001; 82550; 82803; 82962; 83036; 83605; 83690; 83735; 83880; 84439; 84443; 84484; 85025; 85610; 85730; 87040; 87070; 87077; 87086; 87186; 87205; 93005; 93010; 94640; 94660; 96374; 99291; J1940; J3490; J7620

== ENCOUNTER 2018-07-29 11:00 | Emergency (ER) | payer MEDICAID, MEDICARE ==
--- NOTE | 2018-07-29 12:21 | ER Document Report ---
ED Medical Screen (RME) - General Chief Complaint: Foot Pain Stated Complaint: RIGHT FOOT PAIN Time Seen by Provider: 07/29/18 12:19 Mode of Arrival: Wheelchair Information source: Patient Notes: 77-year-old man with a history of a left AKA presenting to the emergency room with infection of the right foot despite being on oral antibiotics (clindamycin) . Patient was placed on the antibiotics recently by Dr. [place]. TRAVEL OUTSIDE OF THE [place] IN LAST 30 DAYS: No - Related Data Allergies/Adverse Reactions: No Known Allergies Allergy (Verified 12/23/17 09:10) Past Medical History - Social History Frequency of alcohol use: Rare Drug Abuse: Marijuana - Past Medical History Cardiac Medical History: Reports: Hx Atrial Fibrillation, Hx Congestive Heart Failure, Hx Heart Attack, Hx Hypercholesterolemia, Hx Hypertension, Hx Peripheral Vascular Disease Renal/ Medical History: Denies: Hx Peritoneal Dialysis Psychiatric Medical History: Reports: Hx Depression Past Surgical History: Reports: Hx Cardiac Catheterization, Hx Cardiac Surgery - defib, CABGx3, Hx Coronary Artery Bypass Graft, Hx Vascular Surgery - Left AKA , Other - Status post amputation left lower extremity. - Immunizations History of Influenza Vaccine for 06/2017 - 11/2017 Season: Yes Influenza Administration Date for 06/2017 - 11/2017 Season: 07/26/17 Physical Exam - Vital signs Vitals: Temp Pulse Resp BP Pulse Ox 98.0 F 60 14 108/77 97 07/29/18 11:15 07/29/18 11:15 07/29/18 11:15 07/29/18 11:15 07/29/18 11:15 Course - Vital Signs Vital signs: Temp Pulse Resp BP Pulse Ox 98.0 F 60 14 108/77 97 07/29/18 11:15 07/29/18 11:15 07/29/18 11:15 07/29/18 11:15 07/29/18 11:15 Doctor's Discharge - Discharge Referrals: CAYETANO RAY MD [Primary Care Provider] - Follow up as needed
--- NOTE | 2018-07-29 12:56 | RADIOLOGY REPORT (SQ) ---
EXAM DESCRIPTION: FOOT RIGHT COMPLETE COMPLETED DATE/TIME: 07/29/2018 12:47 pm REASON FOR STUDY: right foot infection COMPARISON: None. NUMBER OF VIEWS: Three views. TECHNIQUE: AP, lateral and oblique radiographic images acquired of the right foot. LIMITATIONS: None. FINDINGS: MINERALIZATION: Patchy generalized demineralization. BONES: No acute fracture or dislocation. No worrisome bone lesions. JOINTS: Degenerative changes at the 1st metatarsal phalangeal joint. SOFT TISSUES: No soft tissue swelling. No foreign body. OTHER: No other significant finding. IMPRESSION: CHRONIC CHANGES ABOVE. NO ACUTE FINDINGS. TECHNICAL DOCUMENTATION: JOB ID: [id number] [employer]- All Rights Reserved Reading location - IP/workstation name: [email or web address]
[2018-07-29 13:02] LABS: ABSOLUTE BASOPHILS # (AUTO) 0.1 10^3/uL (0.0-0.2); ABSOLUTE EOSINOPHILS # (AUTO) 0.1 10^3/uL (0.0-0.6); ABSOLUTE LYMPHOCYTES (AUTO) 0.8 10^3/uL (0.5-4.7); ABSOLUTE MONOCYTES (AUTO) 1.3 10^3/uL (0.1-1.4); ABSOLUTE NEUT (AUTO) 7.8 10^3/uL (1.7-8.2); BASOPHILS % (AUTO) 0.5 % (0-2); EOSINOPHILS % (AUTO) 0.6 % (0-6); HEMATOCRIT 45.6 % (37.9-51.0); HEMOGLOBIN 15.2 g/dL (13.5-17.0); LYMPHOCYTES % (AUTO) 7.8 % (13-45); MEAN CORPUSCULAR HEMOGLOBIN 28.9 pg (27.0-33.4); MEAN CORPUSCULAR HGB CONC 33.3 g/dL (32.0-36.0); MEAN CORPUSCULAR VOLUME 87 fl (80-97); MONOCYTES % (AUTO) 13.1 % (3-13); PLATELET COUNT 210 10^3/uL (150-450); RED BLOOD COUNT 5.25 10^6/uL (4.35-5.55); RED CELL DISTRIBUTION WIDTH 14.7 % (11.5-14.0); TOTAL CELLS COUNTED % (AUTO) 100 %; WHITE BLOOD COUNT 10.1 10^3/uL (4.0-10.5)
[2018-07-29 14:21] LABS: ALANINE AMINOTRANSFERASE 121 U/L (21-72); ALBUMIN 3.6 g/dL (3.5-5.0); ALKALINE PHOSPHATASE 130 U/L (38-126); ANION GAP 12 (5-19); ASPARTATE AMINO TRANSFERASE 88 U/L (17-59); BILIRUBIN,DIRECT 0.3 mg/dL (0.0-0.4); BILIRUBIN,TOTAL 0.6 mg/dL (0.2-1.3); BLOOD UREA NITROGEN 25 mg/dL (7-20); CARBON DIOXIDE 22 mmol/L (22-30); CHLORIDE 102 mmol/L (98-107); GLUCOSE 121 mg/dL (75-110); POTASSIUM 3.6 mmol/L (3.6-5.0); SODIUM 136.3 mmol/L (137-145); TOTAL PROTEIN 7.1 g/dL (6.3-8.2)
--- NOTE | 2018-07-29 14:37 | ER Document Report ---
ED General <YADIEL SHAIKH - Last Filed: 07/29/18 16:44> - General Mode of Arrival: Wheelchair Information source: Patient TRAVEL OUTSIDE OF THE [place] IN LAST 30 DAYS: No - HPI Onset: Other - 2 weeks ago Onset/Duration: Gradual Quality of pain: Throbbing Severity: Moderate Similar symptoms previously: No <RIAN DEL CASTILLO - Last Filed: 07/29/18 17:25> - General Chief Complaint: Foot Pain Stated Complaint: RIGHT FOOT PAIN Time Seen by Provider: 07/29/18 12:19 - HPI Notes: 77 yo gentlemen with h/o CHF, CAD, and left AKA presents for a foot infection on his right foot dorsal between the fourth and fifth digits. Patient endorses pain at rest exacerbated by manipulation not relieved by anything. Patient denies fever chills vomiting diarrhea, or any constitutional symptoms. Patient noticed the infection 2 weeks ago states it has slowly gotten worse. Patient denies that he is a diabetic. (RIAN DEL CASTILLO) - Related Data Allergies/Adverse Reactions: No Known Allergies Allergy (Verified 12/23/17 09:10) Past Medical History - General Information source: Patient - Social History Smoking Status: Never Smoker Frequency of alcohol use: Rare Drug Abuse: Marijuana Family History: CAD, Hypertension Patient has suicidal ideation: No Patient has homicidal ideation: No - Past Medical History Cardiac Medical History: Reports: Hx Atrial Fibrillation, Hx Congestive Heart Failure, Hx Heart Attack, Hx Hypercholesterolemia, Hx Hypertension, Hx Peripheral Vascular Disease Renal/ Medical History: Denies: Hx Peritoneal Dialysis Psychiatric Medical History: Reports: Hx Depression Past Surgical History: Reports: Hx Cardiac Catheterization, Hx Cardiac Surgery - defib, CABGx3, Hx Coronary Artery Bypass Graft, Hx Vascular Surgery - Left AKA , Other - Status post amputation left lower extremity. <RIAN DEL CASTILLO - Last Filed: 07/29/18 17:25> Review of Systems - Review of Systems Constitutional: No symptoms reported. denies: See HPI, Chills, Diaphoresis, Fever, Malaise, Weakness, Other, Weight gain, Weight loss, Recent illness Cardiovascular: denies: Chest pain, Dyspnea, Dizziness, Lightheaded, Edema Respiratory: denies: Short of breath Gastrointestinal: denies: Diarrhea, Nausea, Vomiting Skin: Other - infection R dorsal aspect of foot across 4th and 5th MTP Neurological/Psychological: denies: Confusion <ABUNDIORIAN - Last Filed: 07/29/18 17:25> Physical Exam - General General appearance: Appears well, Alert In distress: None - HEENT Head: Normocephalic Eyes: Normal Conjunctiva: Normal - Respiratory Respiratory status: No respiratory distress Chest status: Nontender Breath sounds: Normal Chest palpation: Normal - Cardiovascular Rhythm: Regular Heart sounds: Normal auscultation, S1 appreciated, S2 appreciated Murmur: No - Heart sounds distant, could not appreciate murmur - Abdominal Inspection: Normal Distension: No distension Tenderness: Nontender - Extremities Foot: Other - R 4th and 5th phalanges with open wound, mild purulence, very tender to palpation and manipulation, approximately 2 inches across crease and in between 4th and 5th toes - Neurological Cognition: Normal Orientation: AAOx4 - Skin Skin Temperature: Warm Skin Moisture: Dry Skin Color: Normal Skin irregularity: other <RIAN DEL CASTILLO - Last Filed: 07/29/18 17:25> - Vital signs Vitals: Temp Pulse Resp BP Pulse Ox 98.0 F 60 14 108/77 97 07/29/18 11:15 07/29/18 11:15 07/29/18 11:15 07/29/18 11:15 07/29/18 11:15 Course - Laboratory Result Diagrams: 07/29/18 12:32 07/29/18 13:46 <YADIEL SHAIKH - Last Filed: 07/29/18 16:44> - Laboratory Result Diagrams: 07/29/18 12:32 07/29/18 13:46 - Diagnostic Test Radiology reviewed: Image reviewed, Reports reviewed <RIAN DEL CATSILLO - Last Filed: 07/29/18 17:25> - Re-evaluation Re-evalutation: 07/29/18 16:44 Personally evaluated the patient with the mid-level provider. Wound between the fifth and fourth and fourth and third toes looks to be chronic with some mild weeping. Patient states that he is recently been placed on antibiotics with no improvement x-ray is negative no white count no fever patient looks to be in need of wound care wound was cleaned and padded the wound was placed with antibiotic ointment does not look to be grossly infected at this time very stages of greenish tissue in the wound. Patient is advised to follow-up primary care physician. Patient does have slight elevation in his BUN and creatinine from previous visits. With history of recent antibiotic patient does not have the name of possible etiology patient also is on Lasix. No other signs of critical pathology. Patient is able to produce urine. Patient also follow-up with his primary care physician for further evaluation of his renal findings. (YADIEL SHAIKH) 07/29/18 16:[address] Shaikh. Pt appears comfortable. Completed an antibiotic course per patient last . Wound appears slightly weepy, very mild purulence. Will clean and irrigate wound, apply antibiotic ointment, and dress. Will arrange for patient to follow-up with his primary provider on Monday. Patient with elevated creatinine compared to previous level in November 2017. Will advise his primary provider of the finding to be addressed. ( RIAN DEL CASTILLO) - Vital Signs Vital signs: Temp Pulse Resp BP Pulse Ox 97.7 F 59 L 16 145/82 H 100 07/29/18 16:49 07/29/18 16:49 07/29/18 16:49 07/29/18 16:49 07/29/18 16:49 - Laboratory Laboratory results interpreted by me: 07/29/18 07/29/18 12:32 13:46 RDW 14.7 H Lymphocytes % 7.8 L Monocytes % 13.1 H Sodium 136.3 L BUN 25 H Creatinine 1.97 H Est GFR ( Amer) 40 L Est GFR (Non-Af Amer) 33 L Glucose 121 H AST 88 H ALT 121 H Alkaline Phosphatase 130 H 07/29/18 17:23 Labs- Entire Visit 07/29/18 07/29/18 07/29/18 12:32 12:32 13:46 WBC 10.1 RBC 5.25 Hgb 15.2 Hct 45.6 MCV 87 MCH 28.9 MCHC 33.3 RDW 14.7 H Plt Count 210 Seg Neutrophils % 78.0 Lymphocytes % 7.8 L Monocytes % 13.1 H Eosinophils % 0.6 Basophils % 0.5 Absolute Neutrophils 7.8 Absolute Lymphocytes 0.8 Absolute Monocytes 1.3 Absolute Eosinophils 0.1 Absolute Basophils 0.1 Sodium Cancelled 136.3 L Potassium Cancelled 3.6 Chloride Cancelled 102 Carbon Dioxide Cancelled 22 Anion Gap Cancelled 12 BUN Cancelled 25 H Creatinine Cancelled 1.97 H Est GFR ( Amer) Cancelled 40 L Est GFR (Non-Af Amer) Cancelled 33 L Glucose Cancelled 121 H Calcium Cancelled 9.0 Total Bilirubin Cancelled 0.6 Direct Bilirubin Cancelled 0.3 Neonat Total Bilirubin Cancelled Not Reportable Neonat Direct Bilirubin Cancelled Not Reportable Neonat Indirect Bili Cancelled Not Reportable AST Cancelled 88 H ALT Cancelled 121 H Alkaline Phosphatase Cancelled 130 H Total Protein Cancelled 7.1 Albumin Cancelled 3.6 (RIAN DEL CASTILLO) Discharge <YADIEL SHAIKH - Last Filed: 07/29/18 16:44> <RIAN DEL CASTILLO - Last Filed: 07/29/18 17:25> - Discharge Clinical Impression: Elevated serum creatinine, Chronic wound of extremity Condition: Good Disposition: HOME, SELF-CARE Instructions: Dressing Instructions for Open Wounds ([facility]), Kidney Failure ([facility]) Additional Instructions: Seen in the emergency department today for a chronic wound on your right foot. It is important to keep the wound clean, apply antibiotic ointment to it every day, and then dressed the wound. Please follow-up with your primary provider tomorrow. Kidney test showed that your numbers were high compared to the previous test in November. Least discuss this with your primary provider when you make the appointment to see him. Ensure that you are eating well and have good nutrition because it promotes wound healing. Also make sure to drink water and stay hydrated. Make sure to take your medications every day and discuss those with your primary doctor as well. Referrals: CAYETANO RAY MD [Primary Care Provider] - Follow up as needed (Call your doctor on Monday to schedule a follow-up appointment)
[2018-07-29 16:49] VITALS: BP 145/82
== END 2018-07-29 18:34 | disposition home or self-care (01) ==
LOC: ER 11:00
DX: R79.89 Other specified abnormal findings of blood chemistry (principal); M79.671 Pain in right foot; S81.801A Unspecified open wound, right lower leg, initial encounter; X58.XXXA Exposure to other specified factors, initial encounter; I50.9 Heart failure, unspecified; I25.10 Atherosclerotic heart disease of native coronary artery without angina pectoris; Z89.612 Acquired absence of left leg above knee; I25.2 Old myocardial infarction; Z95.1 Presence of aortocoronary bypass graft
CPT/HCPCS: 36415; 80053; 85025; 99284

== ENCOUNTER → 2018-08-20 | Outpatient (CLI) | payer MEDICARE ==
--- NOTE | 2018-08-21 11:30 | XCELERA REPORT ---
[address] [address] Lower Extremity Arterial Evaluation Name: MOHAN BALLESTEROS JR Age: 77 yrs Gender: Male : 1940 Patient Status: Outpatient Patient Location: RAD Study Date: 08/20/2018 09:25 AM Procedure: A color flow and duplex scan of the lower extremity arteries was performed bilaterally with velocity and waveform anaylsis. Reason For Study: ULCER Ordering Physician: LETICIA MORENO Performed By: Homer Link Measurements and Calculations Right Left VINER OPERATOR PSV 91.8 34.0 cm/sec Prox PFA PSV -55.6 -74.4 cm/sec Prox Pop A PSV 146.0 cm/sec Dist Pop A PSV 34.2 cm/sec Prox FAWAD PSV 89.1 cm/sec Mid FAWAD PSV 15.9 cm/sec Dist FAWAD PSV 17.1 cm/sec Prox PARKING SUPERVISOR PSV 183.0 cm/sec Mid PARKING SUPERVISOR PSV 88.9 cm/sec Dist PARKING SUPERVISOR PSV -69.9 cm/sec Salomon Pedis PSV 13.6 cm/sec Right Side Arterial Evaluation Normal velocity and triphasic waveforms noted from the Common Femoral artery to the Popliteal. Biphasic Posterior tibial with normal velocity, moderate spectral broadening. Anterior Tibial monophasic with severely diminished flow distally. Infrageniculate vessels show a spectrum from nearly normal flow proximally, to compromised distally. 20-49 % stenosis at the Posterior Tibial artery. Severe diminution in Anterior Tibial Ankle Brachial index was not done due to patient's inability to cooperate. Left Side Arterial Evaluation Normal velocity and triphasic waveforms noted in the Common Femoral artery. Popliteal. Monophasic with minimal flow. Left above knee amputation present. 50-99 % stenosis at the Femoral artery. Interpretation Summary Moderate hemodynamically significant lesions in the right lower extremity only, on duplex imaging, at rest. Severe hemodynamically significant lesions in the left lower extremity only, on duplex imaging, at rest. On the left, in remaining thigh only. : LETICIA MORENO > Lee Ko
== END ==
LOC: RAD 09:00
PROVIDERS: ATTEND Nurse Practitioner
DX: L97.512 Non-pressure chronic ulcer of other part of right foot with fat layer exposed (principal)
CPT/HCPCS: 93925

== ENCOUNTER 2018-08-27 15:20 | Emergency (ER) | payer MEDICARE ==
--- NOTE | 2018-08-27 15:44 | ER Document Report ---
ED General - General Stated Complaint: BLOOD PRESSURE ISSUES Time Seen by Provider: 08/27/18 15:28 Mode of Arrival: Stretcher Information source: Patient, Emergency Med Personnel TRAVEL OUTSIDE OF THE [place] IN LAST 30 DAYS: No - HPI Patient complains to provider of: Hypotension Onset: Just prior to arrival Onset/Duration: Sudden Quality of pain: No pain Associated symptoms: Other - Dysuria Exacerbated by: Denies Relieved by: Denies Similar symptoms previously: No Recently seen / treated by doctor: Yes Notes: Patient is a 77-year-old male presenting to the emergency room today on the advice of a home health nurse for low blood pressure that was noted during a home visit, patient reports some dysuria but denies any additional symptoms, he does have a chronic nonhealing wound to his right fifth toe, he is being followed by on local wound care for this ulcer, he denies any other symptoms at present, no recent illness or injury, states he has been eating well and drinking plenty of fluids, denies any cough, cold or congestion, no headache, no nausea vomiting or diarrhea, denies any pain except for in the right fifth toe - Related Data Allergies/Adverse Reactions: No Known Allergies Allergy (Verified 08/27/18 16:37) Past Medical History - General Information source: Patient - Social History Smoking Status: Unknown if Ever Smoked Family History: CAD, Hypertension - Past Medical History Cardiac Medical History: Reports: Hx Atrial Fibrillation, Hx Congestive Heart Failure, Hx Heart Attack, Hx Hypercholesterolemia, Hx Hypertension, Hx Peripheral Vascular Disease Renal/ Medical History: Denies: Hx Peritoneal Dialysis Psychiatric Medical History: Reports: Hx Depression Past Surgical History: Reports: Hx Cardiac Catheterization, Hx Cardiac Surgery - defib, CABGx3, Hx Coronary Artery Bypass Graft, Hx Vascular Surgery - Left AKA , Other - Status post amputation left lower extremity. Review of Systems - Review of Systems Constitutional: Chills EENT: No symptoms reported Cardiovascular: No symptoms reported Respiratory: No symptoms reported Gastrointestinal: No symptoms reported Genitourinary: Dysuria Male Genitourinary: No symptoms reported Musculoskeletal: See HPI Skin: See HPI Hematologic/Lymphatic: No symptoms reported Neurological/Psychological: No symptoms reported -: Yes All other systems reviewed and negative Physical Exam - Vital signs Vitals: Temp 97.7 F 08/27/18 15:25 Interpretation: Normal - General General appearance: Appears well, Alert In distress: None - HEENT Head: Normocephalic, Atraumatic Eyes: Normal Pupils: PERRL - Respiratory Respiratory status: No respiratory distress Chest status: Nontender Breath sounds: Normal Chest palpation: Normal - Cardiovascular Rhythm: Regular Heart sounds: Normal auscultation Murmur: No - Abdominal Inspection: Normal Distension: No distension Bowel sounds: Normal Tenderness: Nontender Organomegaly: No organomegaly - Back Back: Normal, Nontender - Extremities General upper extremity: Normal inspection, Nontender, Normal color, Normal ROM , Normal temperature General lower extremity: No: Janett's sign Thigh: Other - Left AKA, no tenderness, swelling or erythema Foot: Other - Right fifth toe with ulceration to the medial surface, there is a wound care dressing in place, there is no bleeding, drainage, the toe is hyperpigmented black, there is mild swelling and tenderness to palpate, 2+ DP pulses, sensation and motor intact - Neurological Neuro grossly intact: Yes Cognition: Normal Orientation: AAOx4 Christian Coma Scale Eye Opening: Spontaneous Christian Coma Scale Verbal: Oriented Dunlap Coma Scale Motor: Obeys Commands Dun[place] Coma Scale Total: 15 Speech: Normal Motor strength normal: LUE, RUE, LLE, RLE Sensory: Normal - Psychological Associated symptoms: Normal affect, Normal mood - Skin Skin Temperature: Warm Skin Moisture: Dry Skin Color: Normal Course - Re-evaluation Re-evalutation: 08/27/18 15:43 Patient's BP on arrival is 120/76, besides dysuria he has no acute complaints at this time, given his low blood pressure measured by the home health nurse and EMS on their initial arrival, we will do a sepsis workup, x-ray of the right foot to rule out osteomyelitis, and obtain a urinalysis as patient is complaining of dysuria 08/27/18 16:59 Lab and imaging findings discussed with patient and son at bedside which are unremarkable, he is noted to have mild elevated creatinine but this is improved from previous visits, x-ray shows no evidence of osteomyelitis, patient's vital signs have been unremarkable since being in the department with a blood pressure of 147/81 at present time which required no intervention, patient is followed at the wound care clinic for his chronic nonhealing ulceration to the right fifth toe, he was advised to follow-up there as well as with his primary care provider or return if symptoms worsen, patient and son at bedside acknowledge understanding and agreement with this plan - Vital Signs Vital signs: Temp Pulse Resp BP Pulse Ox 97.7 F 60 17 147/81 H 100 08/27/18 15:25 08/27/18 15:28 08/27/18 16:38 08/27/18 16:38 08/27/18 16:38 - Laboratory Result Diagrams: 08/27/18 15:48 08/27/18 15:48 Laboratory results interpreted by me: 08/27/18 08/27/18 08/27/18 15:48 15:48 16:30 RBC 4.32 L Hgb 12.3 L Hct 37.4 L RDW 14.8 H BUN 28 H Creatinine 1.53 H Est GFR ( Amer) 54 L Est GFR (Non-Af Amer) 44 L Glucose 112 H Albumin 3.4 L Urine Blood SMALL H - Diagnostic Test Radiology reviewed: Image reviewed, Reports reviewed Discharge - Discharge Clinical Impression: Toe ulcer Qualifiers: Laterality: right Non-pressure ulcer stage: limited to breakdown of skin Qualified Code(s): L97.511 - Non-pressure chronic ulcer of other part of right foot limited to breakdown of skin Hypotension Qualifiers: Hypotension type: unspecified hypotension type Qualified Code(s): I95.9 - Hypotension, unspecified Condition: Stable Disposition: HOME, SELF-CARE Instructions: Ulcer ([facility]), Foot or Leg Ulcer ([facility]), Hypotension ([facility]) Additional Instructions: Follow up with your primary care provider in one to 2 days. Return to the emergency room immediately if symptoms worsen or any additional concerns. Referrals: LETICIA MORENO NP [Primary Care Provider] - Follow up as needed
[2018-08-27 16:03] LABS: ABSOLUTE MONOCYTES (AUTO) 0.7 10^3/uL (0.1-1.4); BASOPHILS % (AUTO) 0.6 % (0-2); EOSINOPHILS % (AUTO) 0.5 % (0-6); HEMATOCRIT 37.4 % (37.9-51.0); HEMOGLOBIN 12.3 g/dL (13.5-17.0); LYMPHOCYTES % (AUTO) 13.3 % (13-45); MEAN CORPUSCULAR HEMOGLOBIN 28.4 pg (27.0-33.4); MEAN CORPUSCULAR HGB CONC 32.8 g/dL (32.0-36.0); MEAN CORPUSCULAR VOLUME 87 fl (80-97); MONOCYTES % (AUTO) 9.4 % (3-13); PLATELET COUNT 162 10^3/uL (150-450); RED BLOOD COUNT 4.32 10^6/uL (4.35-5.55); RED CELL DISTRIBUTION WIDTH 14.8 % (11.5-14.0); SEGMENTED NEUTROPHILS % (AUTO) 76.2 % (42-78); TOTAL CELLS COUNTED % (AUTO) 100 %; WHITE BLOOD COUNT 7.8 10^3/uL (4.0-10.5)
--- NOTE | 2018-08-27 16:15 | RADIOLOGY REPORT (SQ) ---
EXAM DESCRIPTION: FOOT RIGHT COMPLETE COMPLETED DATE/TIME: 08/27/2018 4:03 pm REASON FOR STUDY: 5th toe infection COMPARISON: 07/29/2018 NUMBER OF VIEWS: Three views. TECHNIQUE: AP, lateral and oblique radiographic images acquired of the right foot. LIMITATIONS: None. FINDINGS: MINERALIZATION: Osteopenia. BONES: No acute fracture or dislocation. No worrisome bone lesions. No evidence of osteomyelitis. Calcaneal spur. JOINTS: Degenerative joint changes in the 1st metatarsal-phalangeal joint SOFT TISSUES: No soft tissue swelling. No foreign body. OTHER: No other significant finding. IMPRESSION: Calcaneal spur. Degenerative joint disease. No evidence of osteomyelitis. TECHNICAL DOCUMENTATION: JOB ID: [id number] [employer]- All Rights Reserved Reading location - IP/workstation name: [email or web address]
[2018-08-27 16:18] LABS: ALANINE AMINOTRANSFERASE 25 U/L (21-72); ALBUMIN 3.4 g/dL (3.5-5.0); ALKALINE PHOSPHATASE 90 U/L (38-126); ANION GAP 5 (5-19); ASPARTATE AMINO TRANSFERASE 37 U/L (17-59); BILIRUBIN,DIRECT 0.3 mg/dL (0.0-0.4); BILIRUBIN,TOTAL 0.4 mg/dL (0.2-1.3); BLOOD UREA NITROGEN 28 mg/dL (7-20); CALCIUM 8.4 mg/dL (8.4-10.2); CARBON DIOXIDE 27 mmol/L (22-30); CHLORIDE 106 mmol/L (98-107); GLUCOSE 112 mg/dL (75-110); POTASSIUM 4.8 mmol/L (3.6-5.0); SODIUM 138.3 mmol/L (137-145); TOTAL PROTEIN 6.7 g/dL (6.3-8.2)
[2018-08-27 16:54] LABS: APPEARANCE,URINE CLEAR; BILIRUBIN,URINE NEGATIVE (NEGATIVE); COLOR,URINE YELLOW; GLUCOSE, URINE NEGATIVE (NEGATIVE); KETONES,URINE NEGATIVE (NEGATIVE); LEUKOCYTE ESTERASE,URINE NEGATIVE (NEGATIVE); NITRITE,URINE NEGATIVE (NEGATIVE); PROTEIN,URINE NEGATIVE (NEGATIVE); URINE SPECIFIC GRAVITY 1.015; UROBILINOGEN,URINE NEGATIVE mg/dL (<2.0)
[2018-08-27 17:08] VITALS: BP 120/77
== END 2018-08-27 17:20 | disposition home or self-care (01) ==
LOC: ER 15:20
DX: L97.511 Non-pressure chronic ulcer of other part of right foot limited to breakdown of skin (principal); I95.9 Hypotension, unspecified; R30.0 Dysuria; I50.9 Heart failure, unspecified; I11.0 Hypertensive heart disease with heart failure; I48.91 Unspecified atrial fibrillation
CPT/HCPCS: 36415; 80053; 81001; 83605; 85025; 87040; 87086; 99285

== ENCOUNTER 2018-12-03 17:01 | Inpatient (IN) | payer MEDICARE ==
[2018-12-03 18:45] LABS: ABSOLUTE BASOPHILS # (AUTO) 0.1 10^3/uL (0.0-0.2); ABSOLUTE LYMPHOCYTES (AUTO) 1.1 10^3/uL (0.5-4.7); ABSOLUTE MONOCYTES (AUTO) 1.5 10^3/uL (0.1-1.4); ABSOLUTE NEUT (AUTO) 8.2 10^3/uL (1.7-8.2); BASOPHILS % (AUTO) 0.6 % (0-2); EOSINOPHILS % (AUTO) 0.3 % (0-6); HEMATOCRIT 39.3 % (37.9-51.0); HEMOGLOBIN 13.1 g/dL (13.5-17.0); LYMPHOCYTES % (AUTO) 9.8 % (13-45); MEAN CORPUSCULAR HEMOGLOBIN 30.3 pg (27.0-33.4); MEAN CORPUSCULAR HGB CONC 33.4 g/dL (32.0-36.0); MEAN CORPUSCULAR VOLUME 91 fl (80-97); PLATELET COUNT 160 10^3/uL (150-450); RED BLOOD COUNT 4.34 10^6/uL (4.35-5.55); RED CELL DISTRIBUTION WIDTH 15.2 % (11.5-14.0); SEGMENTED NEUTROPHILS % (AUTO) 75.3 % (42-78); TOTAL CELLS COUNTED % (AUTO) 100 %; WHITE BLOOD COUNT 10.9 10^3/uL (4.0-10.5)
[2018-12-03] MEDS ORDERED: HYDROMORPHONE HCL INJ/PF 2 MG/ML AMPULE IV PRN (18:49)
[2018-12-03] MEDS: HYDROMORPHONE HCL INJ/PF 2 MG/ML AMPULE IV PRN ×2 (19:32→23:57)
[2018-12-03 20:27] LABS: ALANINE AMINOTRANSFERASE 20 U/L (21-72); ALBUMIN 3.9 g/dL (3.5-5.0); ALKALINE PHOSPHATASE 99 U/L (38-126); ANION GAP 11 (5-19); ASPARTATE AMINO TRANSFERASE 27 U/L (17-59); BILIRUBIN,DIRECT 0.5 mg/dL (0.0-0.4); BILIRUBIN,TOTAL 0.7 mg/dL (0.2-1.3); BLOOD UREA NITROGEN 19 mg/dL (7-20); CALCIUM 9.3 mg/dL (8.4-10.2); CARBON DIOXIDE 23 mmol/L (22-30); CHLORIDE 104 mmol/L (98-107); GLUCOSE 130 mg/dL (75-110); POTASSIUM 4.1 mmol/L (3.6-5.0); SODIUM 137.5 mmol/L (137-145); TOTAL PROTEIN 7.2 g/dL (6.3-8.2)
--- NOTE | 2018-12-03 21:43 | PDOC H&P ---
History of Present Illness Admission Date/PCP: 12/03/18 17:01 CAYETANO RAY MD History of Present Illness: MOHAN BALLESTEROS JR is a 78 year old male He has a history of ischemic cardiom yopathy, chronic atrial fibrillation on anticoagulant, peripheral vascular disease status post amputation of the left leg [id number], he came to the office this afternoon for evaluation of pain in the right leg. He has a history of peripheral vascular disease of the right leg, on examination of the right leg in the office there was minimal pulses palpable in the feet, the feet was cold with discoloration of the dorsum of the right foot. The fifth toe is black that suggest gangrene. Patient presentation is consistent with ischemic right leg. The onset of the symptoms is in the last 1-2 weeks, there is severe hyperanesthesia of the right foot Past Medical History Cardiac Medical History: Reports: Atrial Fibrillation, Congestive Heart Failure, Myocardial Infarction, Hyperlipidema, Hypertension, Peripheral Vascular Disease Psychiatric Medical History: Reports: Depression Past Surgical History Past Surgical History: Reports: Cardiac Catheterization, Coronary Artery Bypass Graft, Vascular Surgery - Left AKA, Other - Status post amputation left lower extremity. Social History Smoking Status: Former Smoker Frequency of Alcohol Use: Occasional Hx Recreational Drug Use: Yes Drugs: Marijuana Hx Prescription Drug Abuse: No Family History Family History: CAD, Hypertension Parental Family History Reviewed: Yes Children Family History Reviewed: Yes Sibling(s) Family History Reviewed.: Yes Medication/Allergy Home Medications: Amiodarone HCl [Cordarone 200 mg Tablet] 200 mg PO Q12 12/23/17 Apixaban [Eliquis 5 mg Tablet] 5 mg PO Q12 12/23/17 Atorvastatin Calcium [Lipitor 40 mg Tablet] 40 mg PO DAILY 12/23/17 Lansoprazole [Prevacid] 30 mg PO Q6AM 12/23/17 Tamsulosin HCl [Flomax 0.4 mg Cap.sr] 0.4 mg PO DAILY 12/23/17 Carvedilol [Coreg 12.5 mg Tablet] 25 mg PO Q12 #60 tablet 12/26/17 Furosemide [Lasix 40 mg Tablet] 20 mg PO DAILY #30 tablet 12/26/17 Isosorb Dinit/Hydralazine HCl [Bidil 20-37.5 mg Tablet] 1 tab PO Q8 #90 tablet 12/26/17 Nystatin [Mycostatin Cream 15 gm] 1 applic TP DAILY #2 tube 12/26/17 Sacubitril/Valsartan [Entresto 97 mg/103 mg Tablet] 1 tab PO BID #60 tablet 12/26/17 Aspirin [Ecotrin 81 mg EC Tablet] 81 mg PO DAILY 08/27/18 Potassium Chloride [Klor-Con] 20 meq PO DAILY 08/27/18 Allergies/Adverse Reactions: No Known Allergies Allergy (Verified 08/27/18 16:37) Review of Systems Constitutional: ABSENT: chills, fever(s), headache(s), weight gain, weight loss Eyes: ABSENT: visual disturbances Ears: ABSENT: hearing changes Cardiovascular: ABSENT: chest pain, dyspnea on exertion, edema, orthropnea, palpitations Respiratory: ABSENT: cough, hemoptysis Gastrointestinal: ABSENT: abdominal pain, constipation, diarrhea, hematemesis, hematochezia, nausea, vomiting Genitourinary: ABSENT: dysuria, hematuria Musculoskeletal: ABSENT: joint swelling Integumentary: ABSENT: rash, wounds Neurological: ABSENT: abnormal gait, abnormal speech, confusion, dizziness, focal weakness, syncope Psychiatric: ABSENT: anxiety, depression, homidical ideation, suicidal ideation Endocrine: ABSENT: cold intolerance, heat intolerance, menstrual abnormalities, polydipsia, polyuria Hematologic/Lymphatic: ABSENT: easy bleeding, easy bruising, lymphadenopathy Physical Exam Vital Signs: Temp Pulse Resp BP Pulse Ox 98.3 F 59 L 17 86/56 L 96 12/03/18 20:08 12/03/18 20:08 12/03/18 20:08 12/03/18 20:08 12/03/18 20:08 Intake & Output 12/02/18 12/03/18 12/04/18 06:59 06:59 06:59 Weight 61.5 kg General appearance: PRESENT: no acute distress Head exam: PRESENT: atraumatic, normocephalic Eye exam: PRESENT: PERRLA Mouth exam: PRESENT: moist, tongue midline Neck exam: PRESENT: full ROM Respiratory exam: PRESENT: clear to auscultation srikanth Cardiovascular exam: PRESENT: RRR, +S1, +S2 Vascular exam: PRESENT: normal capillary refill GI/Abdominal exam: PRESENT: normal bowel sounds, soft Rectal exam: PRESENT: deferred Extremities exam: PRESENT: left AKA Neurological exam: PRESENT: alert, CN II-XII grossly intact Psychiatric exam: PRESENT: appropriate affect, normal mood Skin exam: PRESENT: dry, intact, warm Results Laboratory Results: 12/03/18 18:35 12/03/18 19:48 12/03/18 12/03/18 12/03/18 18:35 18:35 19:48 WBC 10.9 H RBC 4.34 L Hgb 13.1 L Hct 39.3 MCV 91 MCH 30.3 MCHC 33.4 RDW 15.2 H Plt Count 160 Seg Neutrophils % 75.3 Lymphocytes % 9.8 L Monocytes % 14.0 H Eosinophils % 0.3 Basophils % 0.6 Absolute Neutrophils 8.2 Absolute Lymphocytes 1.1 Absolute Monocytes 1.5 H Absolute Eosinophils 0.0 Absolute Basophils 0.1 Sodium Cancelled 137.5 Potassium Cancelled 4.1 Chloride Cancelled 104 Carbon Dioxide Cancelled 23 Anion Gap Cancelled 11 BUN Cancelled 19 Creatinine Cancelled 1.30 H Est GFR ( Amer) Cancelled > 60 Est GFR (Non-Af Amer) Cancelled 53 L Glucose Cancelled 130 H Calcium Cancelled 9.3 Total Bilirubin Cancelled 0.7 AST Cancelled 27 ALT Cancelled 20 L Alkaline Phosphatase Cancelled 99 Total Protein Cancelled 7.2 Albumin Cancelled 3.9 Assessment & Plan - Diagnosis (1) Ischemia of right lower extremity Is this a current diagnosis for this admission?: Yes Plan: Patient with ischemic right lower extremity, I attempted to transfer patient to Dr. Summers at [facility] in [place], but the hospital is presently in diversion, not receiving any new patient, consultation will be obtained from our vascular surgeon (2) Chronic combined systolic and diastolic CHF (congestive heart failure) Is this a current diagnosis for this admission?: Yes Plan: Continue anti-CHF medication (3) Chronic atrial fibrillation Is this a current diagnosis for this admission?: Yes Plan: Continue treatment for atrial fibrillation
[2018-12-03] MEDS ORDERED: APIXABAN 5 MG TABLET PO SCH (22:00)
[2018-12-03 22:20] LABS: APPEARANCE,URINE CLEAR; BILIRUBIN,URINE NEGATIVE (NEGATIVE); COLOR,URINE YELLOW; GLUCOSE, URINE NEGATIVE (NEGATIVE); KETONES,URINE NEGATIVE (NEGATIVE); LEUKOCYTE ESTERASE,URINE NEGATIVE (NEGATIVE); NITRITE,URINE NEGATIVE (NEGATIVE); PROTEIN,URINE NEGATIVE (NEGATIVE); URINE SPECIFIC GRAVITY 1.013; UROBILINOGEN,URINE NEGATIVE mg/dL (<2.0)
[2018-12-03] MEDS ORDERED: ATORVASTATIN CALCIUM 40 MG TABLET PO ONE (22:30)
[2018-12-03] MEDS: AMIODARONE HCL 200 MG TABLET PO SCH (22:32)
[2018-12-03] MEDS: CARVEDILOL 12.5 MG TABLET PO SCH (22:32)
[2018-12-03] MEDS: ASPIRIN 81 MG TABLET, ENT COATED PO SCH (22:32)
[2018-12-03] MEDS: SACUBITRIL/VALSARTAN 97 MG/103 MG TABLET PO SCH (22:33)
[2018-12-03] MEDS: TAMSULOSIN HCL 0.4 MG CAP.SR.24H PO SCH (22:35)
[2018-12-04] MEDS: NYSTATIN CREAM 15 GM TP SCH ×2 (00:20→09:24)
--- NOTE | 2018-12-04 00:42 | PDOC CONSULTATION ---
Consultation Attending physician:: CAYETANO RAY Consult reason:: Ischemic right foot History of Present Illness Admission Date/PCP: 12/03/18 17:01 CAYETANO RAY MD History of Present Illness: MOHAN BALLESTEROS JR is a 78 year old male Brought to the [facility] by Dr. Ray for evaluation treatmen t of ischemic right foot. Patient has a history of left AKA, date and location unknown. He lives at home with family member. He is a poor historian. Apparently has had chronic pain in his right lower extremity for some time. Has an ischemic right fifth toe. His ambulatory status involves transferring from bed to a wheelchair. Attempts were made to transfer the patient to the care of Dr. Summers [facility] however no beds were available. arterial duplex study done tonight results pending Past Medical History Cardiac Medical History: Reports: Atrial Fibrillation, Congestive Heart Failure, Myocardial Infarction, Hyperlipidema, Hypertension, Peripheral Vascular Disease Psychiatric Medical History: Reports: Depression Past Surgical History Past Surgical History: Reports: Cardiac Catheterization, Coronary Artery Bypass Graft, Vascular Surgery - Left AKA, Other - Status post amputation left lower extremity. Social History Smoking Status: Former Smoker Frequency of Alcohol Use: Occasional Hx Recreational Drug Use: Yes Drugs: Marijuana Hx Prescription Drug Abuse: No Family History Family History: CAD, Hypertension Parental Family History Reviewed: Yes Children Family History Reviewed: Yes Sibling(s) Family History Reviewed.: Yes Medication/Allergy Home Medications: Amiodarone HCl [Cordarone 200 mg Tablet] 200 mg PO Q12 12/23/17 Apixaban [Eliquis 5 mg Tablet] 5 mg PO Q12 12/23/17 Atorvastatin Calcium [Lipitor 40 mg Tablet] 40 mg PO DAILY 12/23/17 Lansoprazole [Prevacid] 30 mg PO Q6AM 12/23/17 Tamsulosin HCl [Flomax 0.4 mg Cap.sr] 0.4 mg PO DAILY 12/23/17 Carvedilol [Coreg 12.5 mg Tablet] 25 mg PO Q12 #60 tablet 12/26/17 Furosemide [Lasix 40 mg Tablet] 20 mg PO DAILY #30 tablet 12/26/17 Isosorb Dinit/Hydralazine HCl [Bidil 20-37.5 mg Tablet] 1 tab PO Q8 #90 tablet 12/26/17 Sacubitril/Valsartan [Entresto 97 mg/103 mg Tablet] 1 tab PO BID #60 tablet 12/26/17 Potassium Chloride [Klor-Con] 20 meq PO DAILY 08/27/18 Allergies/Adverse Reactions: No Known Allergies Allergy (Verified 08/27/18 16:37) Review of Systems ROS unobtainable: Due to mental status Physical Exam Vital Signs: Temp Pulse Resp BP Pulse Ox 99.0 F 60 17 122/82 99 12/03/18 23:48 12/03/18 23:48 12/03/18 23:48 12/03/18 23:48 12/03/18 23:48 Intake & Output 12/02/18 12/03/18 12/04/18 06:59 06:59 06:59 Weight 61.5 kg General appearance: PRESENT: other - Arouses and answers questions some degree of accuracy Eye exam: PRESENT: other - Disconjugate gaze Teeth exam: PRESENT: poor dentation Neck exam: PRESENT: other - Limited range of motion Respiratory exam: PRESENT: rhonchi Vascular exam: PRESENT: other - Left lower extremity AKA, closure scar well- healed Right lower extremity examined. Palpable femoral pulse; no palpable or Doppler pulses at the level of the foot. Musculoskeletal exam: PRESENT: other - Ischemic, dry gangrenous right fifth toe; chronic arterial insufficiency changes right foot Results Laboratory Results: 12/03/18 18:35 12/03/18 19:48 12/03/18 12/03/18 12/03/18 18:35 18:35 19:48 WBC 10.9 H RBC 4.34 L Hgb 13.1 L Hct 39.3 MCV 91 MCH 30.3 MCHC 33.4 RDW 15.2 H Plt Count 160 Seg Neutrophils % 75.3 Lymphocytes % 9.8 L Monocytes % 14.0 H Eosinophils % 0.3 Basophils % 0.6 Absolute Neutrophils 8.2 Absolute Lymphocytes 1.1 Absolute Monocytes 1.5 H Absolute Eosinophils 0.0 Absolute Basophils 0.1 Sodium Cancelled 137.5 Potassium Cancelled 4.1 Chloride Cancelled 104 Carbon Dioxide Cancelled 23 Anion Gap Cancelled 11 BUN Cancelled 19 Creatinine Cancelled 1.30 H Est GFR ( Amer) Cancelled > 60 Est GFR (Non-Af Amer) Cancelled 53 L Glucose Cancelled 130 H Calcium Cancelled 9.3 Total Bilirubin Cancelled 0.7 AST Cancelled 27 ALT Cancelled 20 L Alkaline Phosphatase Cancelled 99 Total Protein Cancelled 7.2 Albumin Cancelled 3.9 Urine Color Urine Appearance Urine pH Ur Specific [place] Urine Protein Urine Glucose (UA) Urine Ketones Urine Blood Urine Nitrite Ur Leukocyte Esterase Urine WBC (Auto) Urine RBC (Auto) 12/03/18 21:00 WBC RBC Hgb Hct MCV MCH MCHC RDW Plt Count Seg Neutrophils % Lymphocytes % Monocytes % Eosinophils % Basophils % Absolute Neutrophils Absolute Lymphocytes Absolute Monocytes Absolute Eosinophils Absolute Basophils Sodium Potassium Chloride Carbon Dioxide Anion Gap BUN Creatinine Est GFR ( Amer) Est GFR (Non-Af Amer) Glucose Calcium Total Bilirubin AST ALT Alkaline Phosphatase Total Protein Albumin Urine Color YELLOW Urine Appearance CLEAR Urine pH 5.0 Ur Specific [place] 1.013 Urine Protein NEGATIVE Urine Glucose (UA) NEGATIVE Urine Ketones NEGATIVE Urine Blood NEGATIVE Urine Nitrite NEGATIVE Ur Leukocyte Esterase NEGATIVE Urine WBC (Auto) 1 Urine RBC (Auto) 2 Assessment & Plan - Diagnosis (1) Ischemia of right lower extremity Is this a current diagnosis for this admission?: Yes Plan: Impression: Ischemic right foot with dry gangrenous right fifth toe, chronic unrelenting pain in diabetic with severe peripheral vascular disease, atrial fib on 10 a inhibitor with left AKA and DNR status Recommendations: 1. Options at this point are to live with chronic right leg pain for undergo a right [id number] amputation. Patient is not an appropriate candidate for revascularization. 2. Suggest holding 10 a inhibitor, and prep. Patient for right [id number] amputation hospitalization. I discussed provisionally this option with the patient and I believe he is in agreement - Time Time Spent: 30 to 50 Minutes Smoking Cessation Education: over 10 minutes Medications reviewed and adjusted accordingly: Yes Anticipated discharge: SNF - Inpatient Certification Based on my medical assessment, after consideration of the patient's comorbidities, presenting symptoms, or acuity I expect that the services needed warrant INPATIENT care.: Yes I certify that my determination is in accordance with my understanding of Medicare's requirements for reasonable and necessary INPATIENT services [42 CFR 412.3e].: Yes Medical Necessity: Need for Pain Control, Need for IV Antibiotics, Need for Beltrán rgery
[2018-12-04] MEDS: HYDROMORPHONE HCL INJ/PF 2 MG/ML AMPULE IV PRN ×4 (03:59→20:05)
[2018-12-04] MEDS: ISOSORB DINIT/HYDRALAZINE HCL 20-37.5 MG TABLET PO SCH ×4 (04:34→22:00)
[2018-12-04] MEDS: LANSOPRAZOLE 30 MG TAB.RAP.DR PO SCH (05:29)
--- NOTE | 2018-12-04 07:51 | XCELERA REPORT ---
[address] [facility] [address] Lower Extremity Venous Evaluation Procedure: Color flow and duplex imaging of the veins of the right lower extremity as well as the left Common Femoral vein. Right Sided Venous Evaluation Normal vessel filling wall to wall, compression and augmentation as well as Colour flow down to the infrageniculate veins. Left Sided Venous Evaluation The left common femoral vein is fully compressible. Spontaneous and phasic flow is present in the left common femoral vein. Interpretation Summary No duplex evidence of DVT or obstruction in the right lower extremity nor in the left Common Femoral vein. Name: MOHAN BALLESTEROS JR, JR Age: 78 yrs Gender: Male : 1940 Patient Status: Inpatient Patient Location: [address] [place], [place] [address] Study Date: 12/03/2018 07:45 PM Reason For Study: right leg ischemia Ordering Physician: CAYETANO RAY Performed By: Julia Torres : CAYETANO RAY > Lee Ko
[2018-12-04] MEDS: AMIODARONE HCL 200 MG TABLET PO SCH ×2 (09:23→22:00)
[2018-12-04] MEDS: FUROSEMIDE 40 MG TABLET PO SCH (09:23)
[2018-12-04] MEDS: CARVEDILOL 12.5 MG TABLET PO SCH ×2 (09:24→22:00)
[2018-12-04] MEDS: SACUBITRIL/VALSARTAN 97 MG/103 MG TABLET PO SCH ×2 (09:24→22:00)
[2018-12-04] MEDS: ASPIRIN 81 MG TABLET, ENT COATED PO SCH (09:24)
--- NOTE | 2018-12-04 13:08 | XCELERA REPORT ---
[address] [address] Lower Extremity Arterial Evaluation Name: MOHAN BALLESTEROS JR, JR Age: 78 yrs Gender: Male : 1940 Patient Status: Inpatient Patient Location: [address] [place], [place] [id number] Study Date: 12/04/2018 10:10 AM Procedure: A color flow and duplex scan of the lower extremity arteries was performed on the right with velocity and waveform anaylsis. Reason For Study: ischemic right leg Ordering Physician: CAYETANO RAY Performed By: Stephanie Ballesteros Measurements and Calculations Right Left GIS TECHNICIAN PSV 60.2 cm/sec Prox PFA PSV -83.8 cm/sec Prox SFA PSV -51.1 cm/sec Mid SFA PSV -29.0 cm/sec Dist COMMERCIAL PLUMBER PSV -13.0 cm/sec Dist Abran A 7.6 cm/sec PSV Right Side Arterial Evaluation Normal velocity and triphasic waveforms noted in the Common Femoral artery and Deep Femoral. Occluded Femoral and Popliteal arteries. Minimal , trickle flow, almost none in the Posterior Tibial Ankle Brachial index not obtained due to pain. Interpretation Summary Severe hemodynamically significant lesions in the right lower extremity only, on duplex imaging, at rest. Almost no arterial flow to the right leg. : CAYETANO RAY > Lee Ko
[2018-12-04] MEDS: TAMSULOSIN HCL 0.4 MG CAP.SR.24H PO SCH (17:31)
--- NOTE | 2018-12-04 20:03 | PDOC PROGRESS REPORT ---
Subjective Progress Note for:: 12/04/18 Subjective:: He has ischemic right leg, the leg is not salvageable, amputation recommended Reason For Visit: ISCHEMIC RIGHT LEG,HISTORY OF AFIB,CAD,AMPUTATED Physical Exam Vital Signs: Temp Pulse Resp BP Pulse Ox 99.2 F 60 18 111/77 100 12/04/18 16:27 12/04/18 16:27 12/04/18 16:27 12/04/18 16:27 12/04/18 16:27 Intake & Output 12/03/18 12/04/18 12/05/18 06:59 06:59 06:59 Intake Total 959 Output Total 775 475 Balance -775 484 Weight 63.7 kg General appearance: PRESENT: no acute distress Eye exam: PRESENT: PERRLA Respiratory exam: PRESENT: clear to auscultation srikanth Cardiovascular exam: PRESENT: +S1, +S2 GI/Abdominal exam: PRESENT: soft Extremities exam: PRESENT: left AKA Neurological exam: PRESENT: alert Results Laboratory Results: 12/03/18 18:35 12/03/18 19:48 12/03/18 12/03/18 19:48 21:00 Sodium 137.5 Potassium 4.1 Chloride 104 Carbon Dioxide 23 Anion Gap 11 BUN 19 Creatinine 1.30 H Est GFR ( Amer) > 60 Est GFR (Non-Af Amer) 53 L Glucose 130 H Calcium 9.3 Total Bilirubin 0.7 AST 27 ALT 20 L Alkaline Phosphatase 99 Total Protein 7.2 Albumin 3.9 Urine Color YELLOW Urine Appearance CLEAR Urine pH 5.0 Ur Specific [place] 1.013 Urine Protein NEGATIVE Urine Glucose (UA) NEGATIVE Urine Ketones NEGATIVE Urine Blood NEGATIVE Urine Nitrite NEGATIVE Ur Leukocyte Esterase NEGATIVE Urine WBC (Auto) 1 Urine RBC (Auto) 2 Assessment & Plan - Diagnosis (1) Ischemia of right lower extremity Is this a current diagnosis for this admission?: Yes (2) Chronic combined systolic and diastolic CHF (congestive heart failure) Is this a current diagnosis for this admission?: Yes (3) Chronic atrial fibrillation Is this a current diagnosis for this admission?: Yes (4) Gangrene due to arterial insufficiency Is this a current diagnosis for this admission?: Yes (5) Gangrene of toe of right foot Is this a current diagnosis for this admission?: Yes
[2018-12-04] MEDS: ATORVASTATIN CALCIUM 40 MG TABLET PO SCH (22:00)
[2018-12-05] MEDS: HYDROMORPHONE HCL INJ/PF 2 MG/ML AMPULE IV PRN ×3 (06:34→18:35)
[2018-12-05] MEDS: LANSOPRAZOLE 30 MG TAB.RAP.DR PO SCH ×2 (06:35→06:44)
[2018-12-05] MEDS: ISOSORB DINIT/HYDRALAZINE HCL 20-37.5 MG TABLET PO SCH ×3 (06:35→22:12)
--- NOTE | 2018-12-05 08:30 | PDOC PROGRESS REPORT ---
Subjective Progress Note for:: 12/05/18 Subjective:: This is a 78-year-old male with acute on chronic critical limb ischemia. The patient reports that the pain in his right lower extremity is worsening. He reports that he cannot move his leg or his foot. He denies fevers, chills, chest pain, shortness of breath, nausea, vomiting, abdominal pain, hematochezia, melena, hematemesis, dizziness, blurry vision. Reason For Visit: ISCHEMIC RIGHT LEG,HISTORY OF AFIB,CAD,AMPUTATED Physical Exam Vital Signs: Temp Pulse Resp BP Pulse Ox 98.7 F 60 18 120/75 99 12/05/18 00:00 12/05/18 02:00 12/05/18 00:00 12/05/18 01:05 12/05/18 00:00 Intake & Output 12/04/18 12/05/18 12/06/18 06:59 06:59 06:59 Intake Total 1319 Output Total 775 1125 Balance -775 194 Weight 63.7 kg 63.8 kg General appearance: PRESENT: mild distress - Right lower extremity pain Head exam: PRESENT: atraumatic, normocephalic Eye exam: PRESENT: EOMI, PERRLA. ABSENT: scleral icterus Mouth exam: PRESENT: moist, neck supple Neck exam: ABSENT: meningismus, tenderness, thyromegaly, tracheal deviation Respiratory exam: PRESENT: clear to auscultation srikanth. ABSENT: chest wall tenderness Cardiovascular exam: PRESENT: RRR Pulses: PRESENT: normal radial pulses, other - No right lower extremity pulses are palpable. GI/Abdominal exam: PRESENT: soft. ABSENT: distended, firm, guarding, tenderness Rectal exam: PRESENT: deferred Extremities exam: PRESENT: other - Severe tenderness to palpation the right lower extremity. The extremity is cool and slightly mottled at the foot. There is mild erythema onto the calf. There is no obvious abscess or gayle necrosis. 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 Neurological exam: PRESENT: alert, awake, oriented to person, oriented to place, oriented to time, oriented to situation, CN II-XII grossly intact Psychiatric exam: ABSENT: agitated, anxious, depressed Focused psych exam: ABSENT: delusional Skin exam: PRESENT: cyanosis - See extremity exam, erythema - See extremity exam, mottled - See extremity exam. ABSENT: jaundice Results Laboratory Results: 12/03/18 18:35 12/03/18 19:48 Assessment & Plan - Diagnosis (1) Critical ischemia of lower extremity Is this a current diagnosis for this admission?: Yes - Plan Summary Plan Summary: This is a 78-year-old male with critical limb ischemia of the right lower extremity. It appears to be acute on chronic. The patient has increasing amounts of pain. He currently does not have evidence of wet gangrene. I have recommended surgical intervention. The patient has been off his Eliquis for almost 48 hours. Consultation was made with anesthesia. They have requested cardiac evaluation prior to any anesthesia being given. I will consult cardiology for risk stratification prior to surgery. Plan to proceed with above-knee amputation once fit for operative intervention.
--- NOTE | 2018-12-05 09:28 | PDOC PROGRESS REPORT ---
Subjective Progress Note for:: 12/05/18 Subjective:: Patient admitted with right lower extremity pain and is noted to have acute ischemia. I been asked to clear him for surgery. Patient is going to need amputation. Patient has a complicated cardiac history. He has history of congestive heart failure, cardiomyopathy and CAD but currently noted to be stable without any angina symptoms, CHF symptoms. He is noted to have atrial paced rhythm. Reason For Visit: ISCHEMIC RIGHT LEG,HISTORY OF AFIB,CAD,AMPUTATED Physical Exam Vital Signs: Temp Pulse Resp BP Pulse Ox 98.7 F 60 18 120/75 99 12/05/18 00:00 12/05/18 02:00 12/05/18 00:00 12/05/18 01:05 12/05/18 00:00 Intake & Output 12/04/18 12/05/18 12/06/18 06:59 06:59 06:59 Intake Total 1319 Output Total 775 1125 Balance -775 194 Weight 63.7 kg 63.8 kg Exam: GENERAL: well-nourished and in no acute distress. Alert and oriented x3 HEAD: Atraumatic, normocephalic. EYES: LIGIA, sclera anicteric, conjunctiva are normal. ENT: Moist mucous membranes. No oral ulcerations or bleeding gums noted. No obvious ear, nose or throat abnormalities noted. NECK: supple without lymphadenopathy. Trachea is central. No cervical or axillary lymphadenopathy noted. Carotids are 2+, JVD WNL LUNGS: Breath sounds clear bilaterally. No wheezes rales or rhonchi noted. No significant dullness noted on percussion. CHEST: Palpation of the chest wall shows no significant chest wall tenderness. Fibrillated noted to the left side chest. 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 ABDOMEN: Soft, no significant tenderness appreciated, normoactive bowel sounds. No guarding, no rebound. No rigidity noted . No masses appreciated. EXTREMITIES: Pedal pulses are absent, no calf tenderness noted. No clubbing or cyanosis. negative pedal edema noted. Patient is status post amputation above knee on the left side. NEUROLOGICAL: Focused neurological exam showed no significant neurologic deficit. Normal speech, no focal weakness appreciated. PSYCH: Normal mood, normal affect. Judgment and insight within normal limits. SKIN: No significant ecchymosis, skin is noted to be warm. MUSCULOSKELETAL EXAM: No significant acute joint swelling noted. Results Laboratory Results: 12/03/18 18:35 12/03/18 19:48 EKG Comments: Telemetry shows atrial paced rhythm. Assessment & Plan - Diagnosis (1) Preoperative cardiovascular examination Is this a current diagnosis for this admission?: Yes (2) Cardiomyopathy Qualifiers: Cardiomyopathy type: unspecified Qualified Code(s): I42.9 - Cardiomyopathy, unspecified Is this a current diagnosis for this admission?: Yes (3) Gangrene of toe of right foot Is this a current diagnosis for this admission?: Yes (4) Ischemia of right lower extremity Is this a current diagnosis for this admission?: Yes (5) Coronary artery disease Qualifiers: Coronary Disease-Associated Artery/Lesion type: unspecified vessel or lesion type [place] vs. transplanted heart: [place] heart Associated angina: angina presence unspecified Qualified Code(s): I25.10 - Atherosclerotic heart disease of [place] coronary artery without angina pectoris Is this a current diagnosis for this admission?: Yes - Notes Notes: Preop clearance: Patient in atrial paced rhythm. Patient has had no angina or angina equivalent symptoms. Patient not in clinical CHF. Patient cleared for surgery. However because of his history of cardiomyopathy, CAD, history of paroxysmal atrial fibrillation, patient is felt to be at increased risk overall but not in the prohibitive range." Amputation surgery is overall relatively low risk surgery therefore patient is likely to do well. Have ordered a 2D echo and chest x-ray backed this should not hold up his surgery if patient is having active limb ischemia. CAD: Patient is relatively stable. Cardiomyopathy: Have ordered a 2D echo. History of CHF: Currently compensated. Paroxysmal atrial fibrillation: Currently off Eliquis for surgery. Please restart as soon as cleared from surgical standpoint. 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 Molina. - Time Time with patient: Greater than 35 minutes - I thank Dr. Molina and Dr. Hobson very much for the kind consultation. Medications reviewed and adjusted accordingly: Yes
[2018-12-05] MEDS: FUROSEMIDE 40 MG TABLET PO SCH (09:43)
[2018-12-05] MEDS: AMIODARONE HCL 200 MG TABLET PO SCH ×2 (09:43→22:11)
[2018-12-05] MEDS: CARVEDILOL 12.5 MG TABLET PO SCH ×2 (09:43→22:11)
[2018-12-05] MEDS: SACUBITRIL/VALSARTAN 97 MG/103 MG TABLET PO SCH (09:44)
[2018-12-05] MEDS: ASPIRIN 81 MG TABLET, ENT COATED PO SCH (09:44)
[2018-12-05] MEDS: NYSTATIN CREAM 15 GM TP SCH (09:45)
[2018-12-05] MEDS ORDERED: BUPIVACAINE HCL 0.25 % INJ/PF (2.5 MG/1 ML) 30 ML VIAL ONE (10:29)
--- NOTE | 2018-12-05 13:31 | RADIOLOGY REPORT (SQ) ---
EXAM DESCRIPTION: CHEST SINGLE VIEW COMPLETED DATE/TIME: 12/05/2018 1:15 pm REASON FOR STUDY: pre-op eval COMPARISON: 05/24/2017. EXAM PARAMETERS: NUMBER OF VIEWS: One view. TECHNIQUE: Single frontal radiographic view of the chest acquired. RADIATION DOSE: NA LIMITATIONS: None. FINDINGS: LUNGS AND PLEURA: No opacities, masses or pneumothorax. No pleural effusion. MEDIASTINUM AND HILAR STRUCTURES: No masses. Contour normal. HEART AND VASCULAR STRUCTURES: Heart upper limits of normal in size. Normal vasculature. BONES: No acute findings. HARDWARE: Pacemaker. OTHER: No other significant finding. IMPRESSION: NO ACUTE RADIOGRAPHIC FINDING IN THE CHEST. TECHNICAL DOCUMENTATION: JOB ID: [id number] [employer]- All Rights Reserved Reading location - IP/workstation name: [email or web address]
[2018-12-05] MEDS: TAMSULOSIN HCL 0.4 MG CAP.SR.24H PO SCH (17:11)
[2018-12-05] MEDS ORDERED: GLUCAGON,HUMAN RECOMB 1 MG INJ SUBCUT PRN (17:17)
[2018-12-05] MEDS ORDERED: DEXTROSE 40% GEL 15 GM TUBE PO PRN ×2 (17:17)
[2018-12-05] MEDS ORDERED: DEXTROSE 50%-WATER 25 GM/50 ML DISP.SYRIN IV PRN ×2 (17:17)
--- NOTE | 2018-12-05 17:20 | XCELERA REPORT ---
[address] [address] Transthoracic Echocardiogram Report Name: MOHAN BALLESTEROS JR, JR Age: 78 yrs Gender: Male : 1940 Patient Status: Inpatient Patient Location: [address] [place] [address] Study Date: 12/05/2018 02:02 PM Procedure: A complete two-dimensional transthoracic echocardiogram was performed (2D, M-mode, spectral and color flow Doppler). The study was technically difficult with many images being suboptimal in quality. The apical views were difficult to obtain and are suboptimal in quality. 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 There is borderline concentric left ventricular hypertrophy. The left ventricle is grossly normal size. LV diastolic function could not be adequately assessed. Regional wall motion abnormalities cannot be excluded due to limited visualization. The right ventricular systolic function is normal. The right ventricle is borderline dilated. The left atrium is mildly dilated. The right atrium is normal in size There is a trace to mild amount of mitral regurgitation There is no mitral valve stenosis. No aortic regurgitation is present. There is no aortic valve stenosis There is a trace amount of tricuspid regurgitation Tricuspid regurgitation jet envelope not well defined to measure RV systolic pressure accurately. The aortic root is not well visualized. The inferior vena cava was not visualized Minimal pericardial effusion. MMode/2D Measurements & Calculations RVDd: 3.4 cm LVIDd: 5.4 cm FS: 21.0 % Ao root diam: 3.3 cm IVSd: 1.0 cm LVIDs: 4.3 cm EDV(Teich): 140.5 ml Ao root area: 8.7 cm2 LVPWd: 1.0 cm ESV(Teich): 81.0 ml EF(Teich): 42.4 % Doppler Measurements & Calculations MV E max iisdra: MV dec slope: Ao V2 max: LV V1 max P.3 cm/sec 93.1 cm/sec 1.7 mmHg MV A max isidra: 111.2 cm/sec2 Ao max PG: LV V1 max: 44.2 cm/sec MV dec time: 0.26 sec 3.5 mmHg 65.2 cm/sec MV E/A: 0.66 PA V2 max: 78.6 cm/sec PA max P.5 mmHg Left Ventricle The left ventricle is grossly normal size. There is borderline concentric left ventricular hypertrophy. Left ventricular systolic function is mild to moderately reduced. LV EF is 40%. LV diastolic function could not be adequately assessed. Regional wall motion abnormalities cannot be excluded due to limited visualization. Right Ventricle The right ventricle is borderline dilated. There is normal right ventricular wall thickness. The right ventricular systolic function is normal. Atria The right atrium is normal in size. The left atrium is mildly dilated. Interarterial septum not well visualized and not well dopplered. Cannot comment on ASD/PFO presence. Mitral Valve The mitral valve leaflets are sclerotic, but show no functional abnormalities. There is no mitral valve stenosis. There is a trace to mild amount of mitral regurgitation. Aortic Valve The aortic valve is grossly normal. There is no aortic valve stenosis. No aortic regurgitation is present. Tricuspid Valve The tricuspid valve is not well visualized, but is grossly normal. There is no tricuspid stenosis. There is a trace amount of tricuspid regurgitation. Tricuspid regurgitation jet envelope not well defined to measure RV systolic pressure accurately. Pulmonic Valve The pulmonic valve is not well visualized. Great Vessels The aortic root is not well visualized. The inferior vena cava was not visualized. Effusions Minimal pericardial effusion. : WILDER BORGES > Wilder Borges
--- NOTE | 2018-12-05 17:42 | PDOC PROGRESS REPORT ---
Subjective Progress Note for:: 12/05/18 Subjective:: Patient with severe peripheral vascular disease with no flow of blood below the right knee scheduled for amputation tomorrow he was seen today by cardiology requested by anesthesia Reason For Visit: ISCHEMIC RIGHT LEG,HISTORY OF AFIB,CAD,AMPUTATED Physical Exam Vital Signs: Temp Pulse Resp BP Pulse Ox 98.1 F 60 16 110/90 H 96 12/05/18 11:55 12/05/18 14:00 12/05/18 11:55 12/05/18 11:55 12/05/18 08:20 Intake & Output 12/04/18 12/05/18 12/06/18 06:59 06:59 06:59 Intake Total 1319 Output Total 775 1125 Balance -775 194 Weight 63.7 kg 63.8 kg General appearance: PRESENT: no acute distress Eye exam: PRESENT: PERRLA Respiratory exam: PRESENT: clear to auscultation srikanth Cardiovascular exam: PRESENT: +S1, +S2 GI/Abdominal exam: PRESENT: soft Neurological exam: PRESENT: alert Results Laboratory Results: 12/03/18 18:35 12/03/18 19:48 Impressions: Chest X-Ray 12/05/18 00:00 IMPRESSION: NO ACUTE RADIOGRAPHIC FINDING IN THE CHEST. Assessment & Plan - Diagnosis (1) Ischemia of right lower extremity Is this a current diagnosis for this admission?: Yes (2) Chronic combined systolic and diastolic CHF (congestive heart failure) Is this a current diagnosis for this admission?: Yes (3) Chronic atrial fibrillation Is this a current diagnosis for this admission?: Yes (4) Gangrene due to arterial insufficiency Is this a current diagnosis for this admission?: Yes (5) Gangrene of toe of right foot Is this a current diagnosis for this admission?: Yes
[2018-12-05 18:26] LABS: ABSOLUTE BASOPHILS # (AUTO) 0.1 10^3/uL (0.0-0.2); ABSOLUTE LYMPHOCYTES (AUTO) 1.1 10^3/uL (0.5-4.7); ABSOLUTE MONOCYTES (AUTO) 1.3 10^3/uL (0.1-1.4); ABSOLUTE NEUT (AUTO) 7.9 10^3/uL (1.7-8.2); BASOPHILS % (AUTO) 0.7 % (0-2); EOSINOPHILS % (AUTO) 0.3 % (0-6); HEMATOCRIT 38.5 % (37.9-51.0); LYMPHOCYTES % (AUTO) 10.4 % (13-45); MEAN CORPUSCULAR HGB CONC 33.8 g/dL (32.0-36.0); MEAN CORPUSCULAR VOLUME 89 fl (80-97); MONOCYTES % (AUTO) 12.7 % (3-13); PLATELET COUNT 185 10^3/uL (150-450); RED BLOOD COUNT 4.33 10^6/uL (4.35-5.55); RED CELL DISTRIBUTION WIDTH 14.6 % (11.5-14.0); SEGMENTED NEUTROPHILS % (AUTO) 75.9 % (42-78); TOTAL CELLS COUNTED % (AUTO) 100 %; WHITE BLOOD COUNT 10.4 10^3/uL (4.0-10.5)
[2018-12-05 19:50] LABS: ALANINE AMINOTRANSFERASE 23 U/L (21-72); ALKALINE PHOSPHATASE 93 U/L (38-126); ANION GAP 9 (5-19); ASPARTATE AMINO TRANSFERASE 34 U/L (17-59); BILIRUBIN,DIRECT 0.4 mg/dL (0.0-0.4); BILIRUBIN,TOTAL 0.7 mg/dL (0.2-1.3); BLOOD UREA NITROGEN 19 mg/dL (7-20); CALCIUM 9.6 mg/dL (8.4-10.2); CARBON DIOXIDE 28 mmol/L (22-30); CHLORIDE 101 mmol/L (98-107); GLUCOSE 99 mg/dL (75-110); POTASSIUM 3.9 mmol/L (3.6-5.0); SODIUM 138.4 mmol/L (137-145); TOTAL PROTEIN 7.2 g/dL (6.3-8.2)
[2018-12-05] MEDS: ATORVASTATIN CALCIUM 40 MG TABLET PO SCH (22:11)
[2018-12-06] MEDS: SACUBITRIL/VALSARTAN 97 MG/103 MG TABLET PO SCH ×2 (03:18→09:39)
[2018-12-06] MEDS: ISOSORB DINIT/HYDRALAZINE HCL 20-37.5 MG TABLET PO SCH ×2 (06:10→15:08)
[2018-12-06] MEDS: LANSOPRAZOLE 30 MG TAB.RAP.DR PO SCH (06:10)
[2018-12-06] MEDS: FUROSEMIDE 40 MG TABLET PO SCH (09:38)
[2018-12-06] MEDS: AMIODARONE HCL 200 MG TABLET PO SCH ×2 (09:39→22:56)
[2018-12-06] MEDS: CARVEDILOL 12.5 MG TABLET PO SCH ×2 (09:39→22:56)
[2018-12-06] MEDS: ASPIRIN 81 MG TABLET, ENT COATED PO SCH (09:39)
[2018-12-06] MEDS: NYSTATIN CREAM 15 GM TP SCH (09:40)
--- NOTE | 2018-12-06 11:15 | PDOC PROGRESS REPORT ---
Subjective Progress Note for:: 12/06/18 Subjective:: This is a 78-year-old male with acute on chronic critical limb ischemia. The patient reports that the pain in his right lower extremity is worsening. He reports that he cannot move his leg or his foot. He denies fevers, chills, chest pain, shortness of breath, nausea, vomiting, abdominal pain, hematochezia, melena, hematemesis, dizziness, blurry vision. Reason For Visit: ISCHEMIC RIGHT LEG,HISTORY OF AFIB,CAD,AMPUTATED Physical Exam Vital Signs: Temp Pulse Resp BP Pulse Ox 98.7 F 62 16 128/76 H 100 12/06/18 08:06 12/06/18 08:06 12/06/18 08:06 12/06/18 09:24 12/06/18 08:06 Intake & Output 12/05/18 12/06/18 12/07/18 06:59 06:59 06:59 Intake Total 1319 505 Output Total 1125 500 Balance 194 5 Weight 63.8 kg 64 kg General appearance: PRESENT: cooperative, mild distress Head exam: PRESENT: atraumatic, normocephalic Eye exam: PRESENT: EOMI, PERRLA. ABSENT: scleral icterus Mouth exam: PRESENT: moist, neck supple Neck exam: ABSENT: meningismus, tenderness, thyromegaly, tracheal deviation Respiratory exam: PRESENT: clear to auscultation srikanth, unlabored. ABSENT: chest wall tenderness, rales, retraction Cardiovascular exam: PRESENT: RRR Pulses: PRESENT: normal radial pulses Vascular exam: PRESENT: pallor - lower extremity Extremities exam: PRESENT: other - tenderness to palpationbelow the knee Neurological exam: PRESENT: alert, awake, oriented to person, oriented to place Psychiatric exam: PRESENT: agitated. ABSENT: anxious, depressed Focused psych exam: ABSENT: delusional Skin exam: ABSENT: erythema, jaundice Results Laboratory Results: 12/05/18 18:13 12/05/18 19:05 12/05/18 12/05/18 12/05/18 18:13 18: 19:05 WBC 10.4 RBC 4.33 L Hgb 13.0 L Hct 38.5 MCV 89 MCH 30.0 MCHC 33.8 RDW 14.6 H Plt Count 185 Seg Neutrophils % 75.9 Lymphocytes % 10.4 L Monocytes % 12.7 Eosinophils % 0.3 Basophils % 0.7 Absolute Neutrophils 7.9 Absolute Lymphocytes 1.1 Absolute Monocytes 1.3 Absolute Eosinophils 0.0 Absolute Basophils 0.1 Sodium Cancelled 138.4 Potassium Cancelled 3.9 Chloride Cancelled 101 Carbon Dioxide Cancelled 28 Anion Gap Cancelled 9 BUN Cancelled 19 Creatinine Cancelled 1.25 Est GFR ( Amer) Cancelled > 60 Est GFR (Non-Af Amer) Cancelled 56 L Glucose Cancelled 99 Calcium Cancelled 9.6 Total Bilirubin Cancelled 0.7 AST Cancelled 34 ALT Cancelled 23 Alkaline Phosphatase Cancelled 93 Total Protein Cancelled 7.2 Albumin Cancelled 4.0 Impressions: Chest X-Ray 12/05/18 00:00 IMPRESSION: NO ACUTE RADIOGRAPHIC FINDING IN THE CHEST. Assessment & Plan - Diagnosis (1) Critical ischemia of lower extremity Is this a current diagnosis for this admission?: Yes - Plan Summary Plan Summary: This is a 78-year-old male with critical limb ischemia of the right lower extremity. It appears to be acute on chronic. The patient has increasing jerel unts of pain. He currently does not have evidence of wet gangrene. I have recommended surgical intervention. The patient has been off his Eliquis for more than 48 hours. Cardiac clearance has been obtained. Plan for above knee amputation today.
[2018-12-06] MEDS ORDERED: ROCURONIUM BROMIDE INJ 50 MG/5 ML VIAL IV ONE (12:12)
[2018-12-06] MEDS ORDERED: DEXAMETHASONE SOD PHOSPHATE INJ 4 MG/1 ML VIAL ONE (12:12)
[2018-12-06] MEDS ORDERED: SUCCINYLCHOLINE CHLORIDE INJ 200 MG/10 ML VIAL ONE (12:12)
[2018-12-06] MEDS ORDERED: ONDANSETRON HCL INJ/PF 4 MG/2 ML SDV ONE (12:12)
[2018-12-06] MEDS ORDERED: LIDOCAINE 2% INJ-PF (20 MG/ML) 2 ML AMPUL ONE (12:12)
[2018-12-06] MEDS ORDERED: FENTANYL CITRATE INJ/PF 100 MCG/2 ML AMPUL ONE (14:09)
[2018-12-06] MEDS ORDERED: HYDROMORPHONE HCL INJ/PF 2 MG/ML AMPULE ONE (14:09)
[2018-12-06] MEDS ORDERED: MIDAZOLAM 2 MG/2 ML INJ ONE (14:09)
[2018-12-06] MEDS ORDERED: ACETAMINOPHEN 1,000 MG/100 ML RTUPB IV ONE (14:10)
[2018-12-06] MEDS ORDERED: PROPOFOL INJ 200 MG/20 ML VIAL IV ONE (14:10)
[2018-12-06] MEDS ORDERED: LIDOCAINE 1% INJ-PF (10 MG/ML) 30 ML SDV ONE (14:10)
[2018-12-06] MEDS ORDERED: EPHEDRINE SULFATE INJ 50 MG/1 ML AMPULE ONE (14:10)
[2018-12-06] MEDS ORDERED: KETAMINE HCL INJ 500 MG/10 ML VIAL ONE (14:28)
[2018-12-06] MEDS ORDERED: SUGAMMADEX SODIUM 200 MG/2 ML SDV IV ONE (14:33)
[2018-12-06] MEDS ORDERED: CEFAZOLIN INJ 1 GM VIAL ONE (14:57)
[2018-12-06] MEDS ORDERED: PROMETHAZINE HCL INJ 25 MG/1 ML VIAL IV PRN ×2 (15:27)
[2018-12-06] MEDS ORDERED: DIPHENHYDRAMINE HCL 50 MG/ML VIAL IV PRN (15:27)
[2018-12-06] MEDS ORDERED: FENTANYL CITRATE INJ/PF 100 MCG/2 ML AMPUL IV PRN ×3 (15:27)
--- NOTE | 2018-12-06 16:05 | Operative Report ---
Operative Report DATE OF SURGERY: 12/06/18 PREOPERATIVE DIAGNOSIS: 1. Ischemic right foot. 2. Status post left above-th e-knee amputation POSTOPERATIVE DIAGNOSIS: Same OPERATION: Right [id number] amputation with primary closure SURGEON: JANETT ART ANESTHESIA: GA TISSUE REMOVED OR ALTERED: Right leg COMPLICATIONS: None ESTIMATED BLOOD LOSS: 100 cc INTRAOPERATIVE FINDINGS: See below PROCEDURE: The patient was taken to the preop holding her to the main operating room seizure was induced. The right leg was elevated, scrotum shaved, right leg prepped and draped in sterile fashion with the leg at the level of the knee unprepped. The lower leg was then wrapped with a series of wraps and sterile [place] and. The right upper leg and groin was prepped and draped in sterile fashion. Surgical plan surgical timeout were conducted. The skin was marked for a right [id number] amputation, orienting the fishmouth incision above the previous scar tissue associated with skin grafting or burn on the anterior and anterior lateral aspect of the thigh. The superior incision was made with a #10 blade, subcutaneous tissue, fascia and muscle divided as encountered. The saphenous vein was ligated with 0 Vicryl ties. The dissection continued all the way down to the superficial femoral artery and vein. With 0 Vicryl ties. The posterior component of the fishmouth incision was made with a #10 blade. The posterior musculature was divided with electrocautery. We came back to the anterior side of the leg, elevated the muscle off of the mid femur, using the periosteal elevator to divide the posterior ligamentous attachments. The femur was then divided with the oscillating saw uneventfully. The remainder the leg was then amputated with electrocautery. We did ligate the sciatic nerve with 0 Vicryl suture. The leg was passed off to pathology We checked the stump for bleeders washed it and checked for bleeders again. There was minimal bleeding from the bone marrow which abated. The muscle looked healthy as did the skin. We now completed a myodesis with 2-0 Vicryl suture and the skin approximated tessa. Xeroform 4 x 4's Kerlix and Matthias wrap applied. Patient tolerated the procedure well, extubated, taken recovery in stable condition.
--- NOTE | 2018-12-06 16:41 | PDOC PROGRESS REPORT ---
Subjective Progress Note for:: 12/06/18 Subjective:: Patient seen on morning rounds. Noted to be comfortable laying in bed. Does not voice any complaints. Patient's son and sister in the room. Informed them that patient is going to need amputation. Patient has a complicated cardiac history. He has history of congestive heart failure, cardiomyopathy and CAD but currently noted to be stable without any angina symptoms, CHF symptoms. He is noted to have atrial paced rhythm. Reason For Visit: ISCHEMIC RIGHT LEG,HISTORY OF AFIB,CAD,AMPUTATED Physical Exam Vital Signs: Temp Pulse Resp BP Pulse Ox 98.9 F 60 16 108/76 96 12/06/18 14:00 12/06/18 14:00 12/06/18 14:00 12/06/18 14:00 12/06/18 14:00 Intake & Output 12/05/18 12/06/18 12/07/18 06:59 06:59 06:59 Intake Total 1319 505 Output Total 1125 500 Balance 194 5 Weight 63.8 kg 64 kg Exam: GENERAL: well-nourished and in no acute distress. Alert and oriented x3 HEAD: Atraumatic, normocephalic. EYES: LIGIA, sclera anicteric, conjunctiva are normal. ENT: Moist mucous membranes. No oral ulcerations or bleeding gums noted. No obvious ear, nose or throat abnormalities noted. NECK: supple without lymphadenopathy. Trachea is central. No cervical or axillary lymphadenopathy noted. Carotids are 2+, JVD WNL LUNGS: Breath sounds clear bilaterally. No wheezes rales or rhonchi noted. No significant dullness noted on percussion. CHEST: Palpation of the chest wall shows no significant chest wall tenderness. 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 ABDOMEN: Soft, no significant tenderness appreciated, normoactive bowel sounds. No guarding, no rebound. No rigidity noted . No masses appreciated. EXTREMITIES: Pedal pulses are absent, no calf tenderness noted. No clubbing or cyanosis. negative pedal edema noted. 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 NEUROLOGICAL: Focused neurological exam showed no significant neurologic deficit. Normal speech, no focal weakness appreciated. PSYCH: Normal mood, normal affect. Judgment and insight within normal limits. SKIN: No significant ecchymosis, skin is noted to be warm. MUSCULOSKELETAL EXAM: No significant acute joint swelling noted. Results Laboratory Results: 12/05/18 18:13 12/05/18 19:05 12/05/18 12/05/18 12/05/18 18:13 18:13 19:05 WBC 10.4 RBC 4.33 L Hgb 13.0 L Hct 38.5 MCV 89 MCH 30.0 MCHC 33.8 RDW 14.6 H Plt Count 185 Seg Neutrophils % 75.9 Lymphocytes % 10.4 L Monocytes % 12.7 Eosinophils % 0.3 Basophils % 0.7 Absolute Neutrophils 7.9 Absolute Lymphocytes 1.1 Absolute Monocytes 1.3 Absolute Eosinophils 0.0 Absolute Basophils 0.1 Sodium Cancelled 138.4 Potassium Cancelled 3.9 Chloride Cancelled 101 Carbon Dioxide Cancelled 28 Anion Gap Cancelled 9 BUN Cancelled 19 Creatinine Cancelled 1.25 Est GFR ( Amer) Cancelled > 60 Est GFR (Non-Af Amer) Cancelled 56 L Glucose Cancelled 99 Calcium Cancelled 9.6 Total Bilirubin Cancelled 0.7 AST Cancelled 34 ALT Cancelled 23 Alkaline Phosphatase Cancelled 93 Total Protein Cancelled 7.2 Albumin Cancelled 4.0 EKG Comments: Shows atrial paced rhythm. Impressions: Chest X-Ray 12/05/18 00:00 IMPRESSION: NO ACUTE RADIOGRAPHIC FINDING IN THE CHEST. Assessment & Plan - Diagnosis (1) Preoperative cardiovascular examination Is this a current diagnosis for this admission?: Yes (2) Cardiomyopathy Qualifiers: Cardiomyopathy type: unspecified Qualified Code(s): I42.9 - Cardiomyopathy, unspecified Is this a current diagnosis for this admission?: Yes (3) Gangrene of toe of right foot Is this a current diagnosis for this admission?: Yes (4) Ischemia of right lower extremity Is this a current diagnosis for this admission?: Yes (5) Coronary artery disease Qualifiers: Coronary Disease-Associated Artery/Lesion type: unspecified vessel or lesion type [place] vs. transplanted heart: [place] heart Associated angina: angina presence unspecified Qualified Code(s): I25.10 - Atherosclerotic heart disease of [place] coronary artery without angina pectoris Is this a current diagnosis for this admission?: Yes - Notes Notes: Patient noted to be generally stable from cardiac standpoint. Patient therefore cleared for surgery. 2D echo shows LVEF at around 35-40% without any significant valvular abnormalities. These results were briefly reviewed with patient's family. At this point would recommend starting patient back on chronic anticoagulation as soon as feasible from surgical standpoint. Also restart all of patient's home medications. Please call me if any further help is needed. - Time Time with patient: 15-25 minutes - More than 50% of the time spent coordinating care, discussing management plans with involved caregivers. Management plans discussed with involved personnels. Medical decision making was of moderate to high complexity, patient's has multiple comorbidities. Medications reviewed and adjusted accordingly: Yes
[2018-12-06] MEDS ORDERED: RINGERS SOLUTION,LACTATED 250 ML IV PRN (17:27)
[2018-12-06] MEDS: TAMSULOSIN HCL 0.4 MG CAP.SR.24H PO SCH (18:20)
--- NOTE | 2018-12-06 20:47 | PDOC PROGRESS REPORT ---
Subjective Progress Note for:: 12/06/18 Subjective:: Patient was seen by the bedside, he underwent amputation of the right leg, AKA without any complications Reason For Visit: ISCHEMIC RIGHT LEG,HISTORY OF AFIB,CAD,AMPUTATED Physical Exam Vital Signs: Temp Pulse Resp BP Pulse Ox 98.1 F 62 18 93/64 L 97 12/06/18 18:27 12/06/18 18:27 12/06/18 18:27 12/06/18 18:27 12/06/18 18:27 Intake & Output 12/05/18 12/06/18 12/07/18 06:59 06:59 06:59 Intake Total 1941 135 1111 Output Total 1125 500 225 Balance 194 5 825 Weight 63.8 kg 64 kg General appearance: PRESENT: no acute distress Eye exam: PRESENT: PERRLA Respiratory exam: PRESENT: clear to auscultation srikanth Cardiovascular exam: PRESENT: +S1, +S2 GI/Abdominal exam: PRESENT: soft Extremities exam: PRESENT: left AKA, right AKA Neurological exam: PRESENT: alert Results Laboratory Results: 12/05/18 18:13 12/05/18 19:05 Impressions: Chest X-Ray 12/05/18 00:00 IMPRESSION: NO ACUTE RADIOGRAPHIC FINDING IN THE CHEST. Assessment & Plan - Diagnosis (1) Ischemia of right lower extremity Is this a current diagnosis for this admission?: Yes (2) Chronic combined systolic and diastolic CHF (congestive heart failure) Is this a current diagnosis for this admission?: Yes (3) Chronic atrial fibrillation Is this a current diagnosis for this admission?: Yes (4) Gangrene due to arterial insufficiency Is this a current diagnosis for this admission?: Yes (5) Gangrene of toe of right foot Is this a current diagnosis for this admission?: Yes Plan: Status post right AKA
[2018-12-06] MEDS: ATORVASTATIN CALCIUM 40 MG TABLET PO SCH (22:56)
[2018-12-07] MEDS: SACUBITRIL/VALSARTAN 97 MG/103 MG TABLET PO SCH ×3 (02:29→23:30)
[2018-12-07] MEDS: ISOSORB DINIT/HYDRALAZINE HCL 20-37.5 MG TABLET PO SCH ×4 (02:29→23:20)
[2018-12-07] MEDS: HYDROMORPHONE HCL INJ/PF 2 MG/ML AMPULE IV PRN ×4 (02:35→23:33)
[2018-12-07] MEDS: RINGERS SOLUTION,LACTATED 1,000 ML IV PRN ×2 (02:36→12:17)
[2018-12-07] MEDS: LANSOPRAZOLE 30 MG TAB.RAP.DR PO SCH (06:40)
[2018-12-07] MEDS: CARVEDILOL 12.5 MG TABLET PO SCH ×2 (09:39→23:20)
[2018-12-07] MEDS: ASPIRIN 81 MG TABLET, ENT COATED PO SCH (09:39)
[2018-12-07] MEDS: FUROSEMIDE 40 MG TABLET PO SCH (09:39)
[2018-12-07] MEDS: AMIODARONE HCL 200 MG TABLET PO SCH ×2 (09:39→23:24)
[2018-12-07] MEDS: NYSTATIN CREAM 15 GM TP SCH (09:42)
[2018-12-07] MEDS: TAMSULOSIN HCL 0.4 MG CAP.SR.24H PO SCH (17:33)
--- NOTE | 2018-12-07 22:12 | PDOC PROGRESS REPORT ---
Subjective Progress Note for:: 12/07/18 Subjective:: Patient seen by the bedside status post AKA of the right leg Reason For Visit: ISCHEMIC RIGHT LEG,HISTORY OF AFIB,CAD,AMPUTATED Physical Exam Vital Signs: Temp Pulse Resp BP Pulse Ox 98.5 F 60 17 98/64 L 100 12/07/18 19:32 12/07/18 19:32 12/07/18 19:32 12/07/18 19:32 12/07/18 19:32 Intake & Output 12/06/18 12/07/18 12/08/18 06:59 06:59 06:59 Intake Total 505 1050 1208 Output Total 500 525 600 Balance 5 525 608 Weight 64 kg 57.6 kg General appearance: PRESENT: no acute distress Eye exam: PRESENT: PERRLA Respiratory exam: PRESENT: clear to auscultation srikanth Cardiovascular exam: PRESENT: +S1, +S2 Extremities exam: PRESENT: right AKA, left BKA Neurological exam: PRESENT: alert Results Laboratory Results: 12/05/18 18:13 12/05/18 19:05 Impressions: Chest X-Ray 12/05/18 00:00 IMPRESSION: NO ACUTE RADIOGRAPHIC FINDING IN THE CHEST. Assessment & Plan - Diagnosis (1) Ischemia of right lower extremity Is this a current diagnosis for this admission?: Yes Plan: Status post amputation of the right leg (2) Chronic combined systolic and diastolic CHF (congestive heart failure) Is this a current diagnosis for this admission?: Yes (3) Chronic atrial fibrillation Is this a current diagnosis for this admission?: Yes (4) Gangrene due to arterial insufficiency Is this a current diagnosis for this admission?: Yes (5) Gangrene of toe of right foot Is this a current diagnosis for this admission?: Yes
[2018-12-07] MEDS: ATORVASTATIN CALCIUM 40 MG TABLET PO SCH (23:30)
--- NOTE | 2018-12-07 23:35 | PDOC PROGRESS REPORT ---
Subjective Progress Note for:: 12/07/18 Subjective:: Right BKA pains post Op Day1 Reason For Visit: ISCHEMIC RIGHT LEG,HISTORY OF AFIB,CAD,AMPUTATED Physical Exam Vital Signs: Temp Pulse Resp BP Pulse Ox 98.5 F 60 17 98/64 L 100 12/07/18 19:32 12/07/18 19:32 12/07/18 19:32 12/07/18 19:32 12/07/18 19:32 Intake & Output 12/06/18 12/07/18 12/08/18 06:59 06:59 06:59 Intake Total 505 1050 1208 Output Total 500 525 600 Balance 5 525 608 Weight 64 kg 57.6 kg Exam: Dressing right BKA stump is dry. Results Laboratory Results: 12/05/18 18:13 12/05/18 19:05 Impressions: Chest X-Ray 12/05/18 00:00 IMPRESSION: NO ACUTE RADIOGRAPHIC FINDING IN THE CHEST. Assessment & Plan - Time Time Spent with patient: 15-24 minutes - Inpatient Certification Medical Necessity: Need for Pain Control, Need for IV Antibiotics - Plan Summary Plan Summary: Will change Right BKA dressing tomorrow and evaluate incision site Continue IV antibiotics
[2018-12-08] MEDS: ISOSORB DINIT/HYDRALAZINE HCL 20-37.5 MG TABLET PO SCH ×2 (06:16→13:26)
[2018-12-08] MEDS: PANTOPRAZOLE SODIUM 40 MG TABLET.DR PO SCH (06:17)
[2018-12-08] MEDS: HYDROMORPHONE HCL INJ/PF 2 MG/ML AMPULE IV PRN ×3 (08:56→21:52)
[2018-12-08] MEDS: FUROSEMIDE 40 MG TABLET PO SCH (09:17)
[2018-12-08] MEDS: CARVEDILOL 12.5 MG TABLET PO SCH ×2 (09:17→21:51)
[2018-12-08] MEDS: SACUBITRIL/VALSARTAN 97 MG/103 MG TABLET PO SCH ×2 (09:17→21:52)
[2018-12-08] MEDS: AMIODARONE HCL 200 MG TABLET PO SCH ×2 (09:17→21:51)
[2018-12-08] MEDS: ASPIRIN 81 MG TABLET, ENT COATED PO SCH (09:17)
[2018-12-08] MEDS: NYSTATIN CREAM 15 GM TP SCH (09:18)
--- NOTE | 2018-12-08 11:11 | PDOC PROGRESS REPORT ---
Subjective Progress Note for:: 12/08/18 Subjective:: Patient is currently doing better patient underwent for the right AKA Patient is otherwise denied any chest pain to than any shortness of the breath Patient's blood pressure is currently on the lower end but patients denied any symptoms currently hold the hydralazine Reason For Visit: ISCHEMIC RIGHT LEG,HISTORY OF AFIB,CAD,AMPUTATED Physical Exam Vital Signs: Temp Pulse Resp BP Pulse Ox 97.4 F 60 16 118/79 100 12/08/18 08:07 12/08/18 08:07 12/08/18 08:07 12/08/18 08:07 12/08/18 08:07 Intake & Output 12/07/18 12/08/18 12/09/18 06:59 06:59 06:59 Intake Total 1050 1333 Output Total 525 700 Balance 525 633 Weight 57.6 kg General appearance: PRESENT: no acute distress, well-developed, well-nourished Head exam: PRESENT: atraumatic, normocephalic Eye exam: PRESENT: conjunctiva pink, EOMI, PERRLA. ABSENT: scleral icterus Ear exam: PRESENT: normal external ear exam Mouth exam: PRESENT: moist, tongue midline Neck exam: PRESENT: full ROM. ABSENT: carotid bruit, JVD, lymphadenopathy, thyromegaly Respiratory exam: PRESENT: clear to auscultation srikanth Cardiovascular exam: PRESENT: RRR. ABSENT: diastolic murmur, rubs, systolic murmur Vascular exam: PRESENT: normal capillary refill GI/Abdominal exam: PRESENT: normal bowel sounds, soft. ABSENT: distended, guarding, mass, organolmegaly, rebound, tenderness Rectal exam: PRESENT: deferred Extremities exam: PRESENT: left AKA Additional comments: Dressing is intact Neurological exam: PRESENT: alert, awake, oriented to person, oriented to place, oriented to time, oriented to situation, CN II-XII grossly intact. ABSENT: motor sensory deficit Psychiatric exam: PRESENT: appropriate affect, normal mood. ABSENT: homicidal ideation, suicidal ideation Skin exam: PRESENT: dry, intact, warm. ABSENT: cyanosis, rash Results Laboratory Results: 12/05/18 18:13 12/05/18 19:05 Impressions: Chest X-Ray 12/05/18 00:00 IMPRESSION: NO ACUTE RADIOGRAPHIC FINDING IN THE CHEST. Assessment & Plan - Diagnosis (1) Cardiomyopathy Qualifiers: Cardiomyopathy type: unspecified Qualified Code(s): I42.9 - Cardiomyopathy, unspecified Is this a current diagnosis for this admission?: Yes (2) Chronic combined systolic and diastolic CHF (congestive heart failure) Is this a current diagnosis for this admission?: Yes (3) Ischemia of right lower extremity Is this a current diagnosis for this admission?: Yes (4) Anemia Qualifiers: Anemia type: unspecified type Qualified Code(s): D64.9 - Anemia, unspecified Is this a current diagnosis for this admission?: Yes (5) Chronic atrial fibrillation Is this a current diagnosis for this admission?: Yes - Time Time Spent with patient: 15-24 minutes Medications reviewed and adjusted accordingly: Yes Anticipated discharge: Other Within: Other - Plan Summary Plan Summary: Currently hold the hydralazine Patient is currently denied any other symptoms Follow with the surgery
[2018-12-08] MEDS ORDERED: HYDROMORPHONE HCL INJ/PF 2 MG/ML AMPULE IV ONE (13:00)
[2018-12-08] MEDS: TAMSULOSIN HCL 0.4 MG CAP.SR.24H PO SCH (17:15)
--- NOTE | 2018-12-08 18:51 | PDOC PROGRESS REPORT ---
Subjective Progress Note for:: 12/08/18 Subjective:: Less pains right AKA Reason For Visit: ISCHEMIC RIGHT LEG,HISTORY OF AFIB,CAD,AMPUTATED Physical Exam Vital Signs: Temp Pulse Resp BP Pulse Ox 98.5 F 60 16 120/78 100 12/08/18 15:25 12/08/18 15:25 12/08/18 15:25 12/08/18 15:25 12/08/18 15:25 Intake & Output 12/07/18 12/08/18 12/09/18 06:59 06:59 06:59 Intake Total 1050 1333 100 Output Total 525 700 175 Balance 525 633 -75 Weight 57.6 kg Exam: Original dressing removed and new dressing placed Stump looks good. No drainage Some tenderness at incision site which is quite expected Results Laboratory Results: 12/05/18 18:13 12/05/18 19:05 Impressions: Chest X-Ray 12/05/18 00:00 IMPRESSION: NO ACUTE RADIOGRAPHIC FINDING IN THE CHEST. Assessment & Plan - Plan Summary Plan Summary: Continue IV antibiotics Prophylactic DVT regimen
--- NOTE | 2018-12-08 18:55 | PDOC PROGRESS REPORT ---
Subjective Reason For Visit: ISCHEMIC RIGHT LEG,HISTORY OF AFIB,CAD,AMPUTATED Physical Exam Vital Signs: Temp Pulse Resp BP Pulse Ox 98.5 F 60 16 120/78 100 12/08/18 15:25 12/08/18 15:25 12/08/18 15:25 12/08/18 15:25 12/08/18 15:25 Intake & Output 12/07/18 12/08/18 12/09/18 06:59 06:59 06:59 Intake Total 1050 1333 573 Output Total 525 700 175 Balance 525 633 398 Weight 57.6 kg Results Laboratory Results: 12/05/18 18:13 12/05/18 19:05 Impressions: Chest X-Ray 12/05/18 00:00 IMPRESSION: NO ACUTE RADIOGRAPHIC FINDING IN THE CHEST.
[2018-12-08] MEDS: ATORVASTATIN CALCIUM 40 MG TABLET PO SCH (21:51)
[2018-12-09] MEDS: HYDROMORPHONE HCL INJ/PF 2 MG/ML AMPULE IV PRN ×4 (03:18→20:02)
[2018-12-09 05:21] LABS: ABSOLUTE BASOPHILS # (AUTO) 0.1 10^3/uL (0.0-0.2); ABSOLUTE LYMPHOCYTES (AUTO) 1.1 10^3/uL (0.5-4.7); ABSOLUTE MONOCYTES (AUTO) 1.6 10^3/uL (0.1-1.4); BASOPHILS % (AUTO) 0.5 % (0-2); EOSINOPHILS % (AUTO) 0.2 % (0-6); HEMATOCRIT 34.6 % (37.9-51.0); HEMOGLOBIN 11.7 g/dL (13.5-17.0); MEAN CORPUSCULAR HEMOGLOBIN 29.9 pg (27.0-33.4); MEAN CORPUSCULAR HGB CONC 33.7 g/dL (32.0-36.0); MEAN CORPUSCULAR VOLUME 89 fl (80-97); MONOCYTES % (AUTO) 14.8 % (3-13); PLATELET COUNT 202 10^3/uL (150-450); RED CELL DISTRIBUTION WIDTH 14.1 % (11.5-14.0); SEGMENTED NEUTROPHILS % (AUTO) 74.5 % (42-78); TOTAL CELLS COUNTED % (AUTO) 100 %; WHITE BLOOD COUNT 10.7 10^3/uL (4.0-10.5)
[2018-12-09] MEDS: PANTOPRAZOLE SODIUM 40 MG TABLET.DR PO SCH (05:22)
[2018-12-09 05:46] LABS: ANION GAP 6 (5-19); BLOOD UREA NITROGEN 18 mg/dL (7-20); CALCIUM 8.9 mg/dL (8.4-10.2); CARBON DIOXIDE 28 mmol/L (22-30); CHLORIDE 103 mmol/L (98-107); GLUCOSE 112 mg/dL (75-110); POTASSIUM 3.8 mmol/L (3.6-5.0); SODIUM 137.1 mmol/L (137-145)
[2018-12-09] MEDS: NYSTATIN CREAM 15 GM TP SCH (09:39)
[2018-12-09] MEDS: ASPIRIN 81 MG TABLET, ENT COATED PO SCH (09:41)
[2018-12-09] MEDS: CARVEDILOL 12.5 MG TABLET PO SCH ×2 (09:41→21:48)
[2018-12-09] MEDS: FUROSEMIDE 40 MG TABLET PO SCH (09:42)
[2018-12-09] MEDS: AMIODARONE HCL 200 MG TABLET PO SCH ×2 (09:42→21:48)
[2018-12-09] MEDS: SACUBITRIL/VALSARTAN 97 MG/103 MG TABLET PO SCH ×2 (09:42→21:49)
--- NOTE | 2018-12-09 10:03 | PDOC PROGRESS REPORT ---
Subjective Progress Note for:: 12/09/18 Subjective:: Patient is currently doing well Patient is denied any chest pain to than any shortness of the breath No abdominal pain no fever no chills Reason For Visit: ISCHEMIC RIGHT LEG,HISTORY OF AFIB,CAD,AMPUTATED Physical Exam Vital Signs: Temp Pulse Resp BP Pulse Ox 98.8 F 60 17 113/70 99 12/09/18 07:41 12/09/18 08:43 12/09/18 07:41 12/09/18 08:43 12/09/18 07:41 Intake & Output 12/08/18 12/09/18 12/10/18 06:59 06:59 06:59 Intake Total 1333 673 Output Total 700 525 Balance 633 148 Weight 61.1 kg General appearance: PRESENT: no acute distress, well-developed, well-nourished Head exam: PRESENT: atraumatic, normocephalic Eye exam: PRESENT: conjunctiva pink, EOMI, PERRLA. ABSENT: scleral icterus Ear exam: PRESENT: normal external ear exam Mouth exam: PRESENT: moist, tongue midline Neck exam: PRESENT: full ROM. ABSENT: carotid bruit, JVD, lymphadenopathy, thyromegaly Respiratory exam: PRESENT: clear to auscultation srikanth Cardiovascular exam: PRESENT: RRR. ABSENT: diastolic murmur, rubs, systolic murmur Vascular exam: PRESENT: normal capillary refill GI/Abdominal exam: PRESENT: normal bowel sounds, soft. ABSENT: distended, guarding, mass, organolmegaly, rebound, tenderness Rectal exam: PRESENT: deferred Extremities exam: PRESENT: right AKA Neurological exam: PRESENT: alert, awake, oriented to person, oriented to place, oriented to time, oriented to situation, CN II-XII grossly intact. ABSENT: motor sensory deficit Psychiatric exam: PRESENT: appropriate affect, normal mood. ABSENT: homicidal ideation, suicidal ideation Skin exam: PRESENT: dry, intact, warm. ABSENT: cyanosis, rash Results Laboratory Results: 12/09/18 04:46 12/09/18 04:46 12/09/18 12/09/18 04:46 04:46 WBC 10.7 H RBC 3.90 L Hgb 11.7 L Hct 34.6 L MCV 89 MCH 29.9 MCHC 33.7 RDW 14.1 H Plt Count 202 Seg Neutrophils % 74.5 Lymphocytes % 10.0 L Monocytes % 14.8 H Eosinophils % 0.2 Basophils % 0.5 Absolute Neutrophils 8.0 Absolute Lymphocytes 1.1 Absolute Monocytes 1.6 H Absolute Eosinophils 0.0 Absolute Basophils 0.1 Sodium 137.1 Potassium 3.8 Chloride 103 Carbon Dioxide 28 Anion Gap 6 BUN 18 Creatinine 0.87 Est GFR ( Amer) > 60 Est GFR (Non-Af Amer) > 60 Glucose 112 H Calcium 8.9 Impressions: Chest X-Ray 12/05/18 00:00 IMPRESSION: NO ACUTE RADIOGRAPHIC FINDING IN THE CHEST. Assessment & Plan - Diagnosis (1) Cardiomyopathy Qualifiers: Cardiomyopathy type: unspecified Qualified Code(s): I42.9 - Cardiomyopathy, unspecified Is this a current diagnosis for this admission?: Yes (2) Chronic combined systolic and diastolic CHF (congestive heart failure) Is this a current diagnosis for this admission?: Yes (3) Ischemia of right lower extremity Is this a current diagnosis for this admission?: Yes Plan: Status post right AKA (4) Anemia Qualifiers: Anemia type: unspecified type Qualified Code(s): D64.9 - Anemia, unspecified Is this a current diagnosis for this admission?: Yes (5) Chronic atrial fibrillation Is this a current diagnosis for this admission?: Yes - Time Time Spent with patient: 15-24 minutes Medications reviewed and adjusted accordingly: Yes Anticipated discharge: SNF Within: Other - Plan Summary Plan Summary: Continues to current medications
--- NOTE | 2018-12-09 11:02 | PDOC PROGRESS REPORT ---
Subjective Progress Note for:: 12/09/18 Subjective:: No complaints, feels better. Reason For Visit: ISCHEMIC RIGHT LEG,HISTORY OF AFIB,CAD,AMPUTATED Physical Exam Vital Signs: Temp Pulse Resp BP Pulse Ox 98.8 F 60 17 113/70 99 12/09/18 07:41 12/09/18 08:43 12/09/18 07:41 12/09/18 08:43 12/09/18 07:41 Intake & Output 12/08/18 12/09/18 12/10/18 06:59 06:59 06:59 Intake Total 1333 673 Output Total 700 525 Balance 633 148 Weight 61.1 kg General appearance: PRESENT: no acute distress Musculoskeletal exam: PRESENT: other - Right AKA stump dressing dry and intact [place] intact. Results Laboratory Results: 12/09/18 04:46 12/09/18 04:46 12/09/18 12/09/18 04:46 04:46 WBC 10.7 H RBC 3.90 L Hgb 11.7 L Hct 34.6 L MCV 89 MCH 29.9 MCHC 33.7 RDW 14.1 H Plt Count 202 Seg Neutrophils % 74.5 Lymphocytes % 10.0 L Monocytes % 14.8 H Eosinophils % 0.2 Basophils % 0.5 Absolute Neutrophils 8.0 Absolute Lymphocytes 1.1 Absolute Monocytes 1.6 H Absolute Eosinophils 0.0 Absolute Basophils 0.1 Sodium 137.1 Potassium 3.8 Chloride 103 Carbon Dioxide 28 Anion Gap 6 BUN 18 Creatinine 0.87 Est GFR ( Amer) > 60 Est GFR (Non-Af Amer) > 60 Glucose 112 H Calcium 8.9 Impressions: Chest X-Ray 12/05/18 00:00 IMPRESSION: NO ACUTE RADIOGRAPHIC FINDING IN THE CHEST. Assessment & Plan - Diagnosis (1) Ischemia of right lower extremity Is this a current diagnosis for this admission?: Yes Plan: Impression: Patient is postoperative day 3 status post right [id number] amputation with primary closure; wound inspected yesterday and site healing satisfactorily Recommendations: 1. Dressing changes ordered every 3 days 2. Patient can follow-up with [facility], Dr. [facility] in 1 week to begin staple removal. 3. We will sign off at this time; reconsult if clinically indicated
[2018-12-09] MEDS ORDERED: NORMAL SALINE 1000 ML 360 ML IV PRN (18:28)
[2018-12-09] MEDS: TAMSULOSIN HCL 0.4 MG CAP.SR.24H PO SCH (18:31)
[2018-12-09] MEDS: ACETAMINOPHEN 325 MG TABLET PO PRN (18:38)
[2018-12-09] MEDS: ATORVASTATIN CALCIUM 40 MG TABLET PO SCH (21:48)
[2018-12-10] MEDS: ACETAMINOPHEN 325 MG TABLET PO PRN (04:20)
[2018-12-10 05:12] LABS: ANION GAP 7 (5-19); BLOOD UREA NITROGEN 17 mg/dL (7-20); CALCIUM 8.9 mg/dL (8.4-10.2); CARBON DIOXIDE 27 mmol/L (22-30); CHLORIDE 105 mmol/L (98-107); GLUCOSE 94 mg/dL (75-110); POTASSIUM 3.7 mmol/L (3.6-5.0); SODIUM 139.1 mmol/L (137-145)
[2018-12-10] MEDS: PANTOPRAZOLE SODIUM 40 MG TABLET.DR PO SCH (05:49)
[2018-12-10] MEDS: CARVEDILOL 12.5 MG TABLET PO SCH ×2 (11:29→22:55)
[2018-12-10] MEDS: NYSTATIN CREAM 15 GM TP SCH (11:29)
[2018-12-10] MEDS: FUROSEMIDE 40 MG TABLET PO SCH (11:29)
[2018-12-10] MEDS: ASPIRIN 81 MG TABLET, ENT COATED PO SCH (11:29)
[2018-12-10] MEDS: AMIODARONE HCL 200 MG TABLET PO SCH ×2 (11:29→22:55)
[2018-12-10] MEDS: SACUBITRIL/VALSARTAN 97 MG/103 MG TABLET PO SCH ×2 (11:30→22:56)
[2018-12-10] MEDS: HYDROMORPHONE HCL INJ/PF 2 MG/ML AMPULE IV PRN (14:22)
[2018-12-10] MEDS: TAMSULOSIN HCL 0.4 MG CAP.SR.24H PO SCH (19:17)
--- NOTE | 2018-12-10 19:20 | PDOC PROGRESS REPORT ---
Subjective Progress Note for:: 12/10/18 Subjective:: Patient was seen by the bedside, status post amputation of the right leg, discharge planners need to arrange for detention home rehabilitation Reason For Visit: ISCHEMIC RIGHT LEG,HISTORY OF AFIB,CAD,AMPUTATED Physical Exam Vital Signs: Temp Pulse Resp BP Pulse Ox 98.3 F 60 15 100/58 L 98 12/10/18 15:44 12/10/18 16:38 12/10/18 15:44 12/10/18 18:00 12/10/18 15:44 Intake & Output 12/09/18 12/10/18 12/11/18 06:59 06:59 06:59 Intake Total 673 834 200 Output Total 525 480 0 Balance 148 354 200 Weight 61.1 kg 56.2 kg General appearance: PRESENT: no acute distress Eye exam: PRESENT: PERRLA Respiratory exam: PRESENT: clear to auscultation sirkanth Cardiovascular exam: PRESENT: +S1, +S2 GI/Abdominal exam: PRESENT: soft Results Laboratory Results: 12/09/18 04:46 12/10/18 04:11 12/10/18 04:11 Sodium 139.1 Potassium 3.7 Chloride 105 Carbon Dioxide 27 Anion Gap 7 BUN 17 Creatinine 0.82 Est GFR ( Amer) > 60 Est GFR (Non-Af Amer) > 60 Glucose 94 Calcium 8.9 Impressions: Chest X-Ray 12/05/18 00:00 IMPRESSION: NO ACUTE RADIOGRAPHIC FINDING IN THE CHEST. Assessment & Plan - Diagnosis (1) Ischemia of right lower extremity Is this a current diagnosis for this admission?: Yes (2) Chronic combined systolic and diastolic CHF (congestive heart failure) Is this a current diagnosis for this admission?: Yes (3) Chronic atrial fibrillation Is this a current diagnosis for this admission?: Yes (4) Gangrene due to arterial insufficiency Is this a current diagnosis for this admission?: Yes (5) Gangrene of toe of right foot Is this a current diagnosis for this admission?: Yes
[2018-12-10] MEDS: OXYCODONE-ACETAMINOPHEN 5-325 MG TABLET PO PRN (22:58)
[2018-12-10] MEDS: ATORVASTATIN CALCIUM 40 MG TABLET PO SCH (22:59)
--- NOTE | 2018-12-10 23:57 | PDOC PROGRESS REPORT ---
Subjective Progress Note for:: 12/10/18 Subjective:: Patient seen on morning rounds. Noted to be comfortable laying in bed. Does not voice any complaints. He has history of congestive heart failure, cardiomyopathy and CAD but currently noted to be stable without any angina symptoms, CHF symptoms. He is noted to have atrial paced rhythm. Patient status post amputation above the knee of the right lower extremity and has done well. Reason For Visit: ISCHEMIC RIGHT LEG,HISTORY OF AFIB,CAD,AMPUTATED Physical Exam Vital Signs: Temp Pulse Resp BP Pulse Ox 98.2 F 60 20 93/52 L 99 12/10/18 19:57 12/10/18 19:57 12/10/18 19:57 12/10/18 19:57 12/10/18 19:57 Intake & Output 12/09/18 12/10/18 12/11/18 06:59 06:59 06:59 Intake Total 673 834 200 Output Total 525 480 300 Balance 148 354 -100 Weight 61.1 kg 56.2 kg Exam: GEN: NAD, patient alert oriented x3. Appearance and grooming WNL HEENT : Eyes: LIGIA, Ears: No significant abnormalities, Nose: No significant abnormalities. normocephalic atraumatic. Flat midface (-), Receding chin (-) ORAL : Mallampati class IV, narrow arched palate (-) Tonsils: Not enlarged. NECK: no thyromegaly, no masses, trachea is central, JVD is not elevated, carotids 2+ with bruit (-) RESP: lungs clear, no rales, wheezes or rhonchi, nonlabored, accessory muscles of respiration use (-). CV: NL S1 and S2. No significant murmurs noted, no gallop, no extra sounds, no clicks, no rub noted. GI: abd NT to palpation, no masses, bowel sounds present, no guarding or rigidity noted. EXT: Bilateral above the amputation noted MUSC/SKEL: no acute joint swelling noted. Muscle strength is generally intact. NEURO: no significant focal neurological deficits are note, sensation grossly intact, AO x 3 PSYCH: NL mood and affect. judgment and insight noted to be intact. SKIN: (-) rash, (-)Signs of pruritus, (-) other significant abnormality Results Laboratory Results: 12/09/18 04:46 12/10/18 04:11 12/10/18 04:11 Sodium 139.1 Potassium 3.7 Chloride 105 Carbon Dioxide 27 Anion Gap 7 BUN 17 Creatinine 0.82 Est GFR ( Amer) > 60 Est GFR (Non-Af Amer) > 60 Glucose 94 Calcium 8.9 EKG Comments: 12 [address]KG [address] no acute [address]-T wave changes. Impressions: Chest X-Ray 12/05/18 00:00 IMPRESSION: NO ACUTE RADIOGRAPHIC FINDING IN THE CHEST. Assessment & Plan - Diagnosis (1) Preoperative cardiovascular examination Is this a current diagnosis for this admission?: Yes (2) Cardiomyopathy Qualifiers: Cardiomyopathy type: unspecified Qualified Code(s): I42.9 - Cardiomyopathy, unspecified Is this a current diagnosis for this admission?: Yes (3) Gangrene of toe of right foot Is this a current diagnosis for this admission?: Yes (4) Ischemia of right lower extremity Is this a current diagnosis for this admission?: Yes (5) Coronary artery disease Qualifiers: Coronary Disease-Associated Artery/Lesion type: unspecified vessel or lesion type [place] vs. transplanted heart: [place] heart Associated angina: angina presence unspecified Qualified Code(s): I25.10 - Atherosclerotic heart disease of [place] coronary artery without angina pectoris Is this a current diagnosis for this admission?: Yes - Notes Notes: Patient has done well post surgery. He has remained stable for several days. Wi ll sign off. Please re-consult if needed. - Time Time with patient: 15-25 minutes
--- NOTE | 2018-12-11 00:09 | EKG REPORT ---
SEVERITY:- ABNORMAL ECG - ATRIAL-PACED COMPLEXES NONSPECIFIC T ABNORMALITIES, ANT-LAT LEADS : Confirmed by: Wilder Rizzo 11-Dec-2018 00:08:45
[2018-12-11] MEDS: PANTOPRAZOLE SODIUM 40 MG TABLET.DR PO SCH (05:31)
[2018-12-11 06:27] LABS: ANION GAP 6 (5-19); BLOOD UREA NITROGEN 23 mg/dL (7-20); CARBON DIOXIDE 28 mmol/L (22-30); CHLORIDE 106 mmol/L (98-107); GLUCOSE 96 mg/dL (75-110); POTASSIUM 3.7 mmol/L (3.6-5.0); SODIUM 140.2 mmol/L (137-145)
[2018-12-11] MEDS: ASPIRIN 81 MG TABLET, ENT COATED PO SCH (09:31)
[2018-12-11] MEDS: AMIODARONE HCL 200 MG TABLET PO SCH ×2 (09:31→22:52)
[2018-12-11] MEDS: CARVEDILOL 12.5 MG TABLET PO SCH ×2 (09:31→22:52)
[2018-12-11] MEDS: FUROSEMIDE 40 MG TABLET PO SCH (09:31)
[2018-12-11] MEDS: SACUBITRIL/VALSARTAN 97 MG/103 MG TABLET PO SCH ×2 (09:32→22:52)
[2018-12-11] MEDS: OXYCODONE-ACETAMINOPHEN 5-325 MG TABLET PO PRN (09:33)
[2018-12-11] MEDS: ACETAMINOPHEN 325 MG TABLET PO PRN (17:55)
[2018-12-11] MEDS: TAMSULOSIN HCL 0.4 MG CAP.SR.24H PO SCH (17:55)
--- NOTE | 2018-12-11 22:00 | PDOC PROGRESS REPORT ---
Subjective Progress Note for:: 12/11/18 Subjective:: Patient was seen by the bedside, he complained of left-sided abdominal pain, status post amputation of right leg. Reason For Visit: ISCHEMIC RIGHT LEG,HISTORY OF AFIB,CAD,AMPUTATED Physical Exam Vital Signs: Temp Pulse Resp BP Pulse Ox 98.7 F 60 16 94/59 L 99 12/11/18 19:26 12/11/18 19:26 12/11/18 19:26 12/11/18 19:26 12/11/18 19:26 Intake & Output 12/10/18 12/11/18 12/12/18 06:59 06:59 06:59 Intake Total 834 200 620 Output Total 480 300 300 Balance 354 -100 320 Weight 56.2 kg 59.2 kg General appearance: PRESENT: no acute distress Eye exam: PRESENT: PERRLA Respiratory exam: PRESENT: clear to auscultation srikanth Cardiovascular exam: PRESENT: +S1, +S2 GI/Abdominal exam: PRESENT: soft Neurological exam: PRESENT: alert Results Laboratory Results: 12/09/18 04:46 12/11/18 04:46 12/11/18 04:46 Sodium 140.2 Potassium 3.7 Chloride 106 Carbon Dioxide 28 Anion Gap 6 BUN 23 H Creatinine 0.86 Est GFR ( Amer) > 60 Est GFR (Non-Af Amer) > 60 Glucose 96 Calcium 9.0 Impressions: Chest X-Ray 12/05/18 00:00 IMPRESSION: NO ACUTE RADIOGRAPHIC FINDING IN THE CHEST. Assessment & Plan - Diagnosis (1) Ischemia of right lower extremity Is this a current diagnosis for this admission?: Yes (2) Chronic combined systolic and diastolic CHF (congestive heart failure) Is this a current diagnosis for this admission?: Yes (3) Chronic atrial fibrillation Is this a current diagnosis for this admission?: Yes (4) Gangrene due to arterial insufficiency Is this a current diagnosis for this admission?: Yes (5) Gangrene of toe of right foot Is this a current diagnosis for this admission?: Yes
--- NOTE | 2018-12-11 22:13 | PDOC TRANSFER SUMMARY ---
General - Admit/Disc Date/PCP Admission Date/Primary Care Provider: 12/03/18 17:01 CAYETANO RAY MD Discharge Date: 12/12/18 - Discharge Diagnosis (1) Ischemia of right lower extremity Is this a current diagnosis for this admission?: Yes (2) Chronic combined systolic and diastolic CHF (congestive heart failure) Is this a current diagnosis for this admission?: Yes (3) Chronic atrial fibrillation Is this a current diagnosis for this admission?: Yes (4) Gangrene due to arterial insufficiency Is this a current diagnosis for this admission?: Yes (5) Gangrene of toe of right foot Is this a current diagnosis for this admission?: Yes (6) Femoral popliteal artery thrombus Is this a current diagnosis for this admission?: Yes - Additional Information Resuscitation Status: Full Code Home Medications: Amiodarone HCl [Cordarone 200 mg Tablet] 200 mg PO Q12 12/23/17 Apixaban [Eliquis 5 mg Tablet] 5 mg PO Q12 12/23/17 Atorvastatin Calcium [Lipitor 40 mg Tablet] 40 mg PO DAILY 12/23/17 Lansoprazole [Prevacid] 30 mg PO Q6AM 12/23/17 Tamsulosin HCl [Flomax 0.4 mg Cap.sr] 0.4 mg PO DAILY 12/23/17 Carvedilol [Coreg 12.5 mg Tablet] 25 mg PO Q12 #60 tablet 12/26/17 Furosemide [Lasix 40 mg Tablet] 20 mg PO DAILY #30 tablet 12/26/17 Isosorb Dinit/Hydralazine HCl [Bidil 20-37.5 mg Tablet] 1 tab PO Q8 #90 tablet 12/26/17 Sacubitril/Valsartan [Entresto 97 mg/103 mg Tablet] 1 tab PO BID #60 tablet 12/26/17 Potassium Chloride [Klor-Con] 20 meq PO DAILY 08/27/18 Acetaminophen [Tylenol 325 mg Tablet] 650 mg PO Q6HP PRN tablet 12/11/18 History of Present Illness Admission Date/PCP: 12/03/18 17:01 CAYETANO RAY MD History of Present Illness: MOHAN BALLESTEROS JR is a 78 year old male He has a history of ischemic car diomyopathy, chronic atrial fibrillation on anticoagulant, peripheral vascular disease status post amputation of the left leg [id number], he came to the office this afternoon for evaluation of pain in the right leg. He has a history of peripheral vascular disease of the right leg, on examination of the right leg in the office there was minimal pulses palpable in the feet, the feet was cold with discoloration of the dorsum of the right foot. The fifth toe is black that suggest gangrene. Patient presentation is consistent with ischemic right leg. The onset of the symptoms is in the last 1-2 weeks, there is severe hyperanesthesia of the right foot Hospital Course Hospital Course: Patient was admitted for the management of ischemic right leg, he was seen by the surgeon ultrasound was done, it demonstrated no flow below the knee, he underwent right leg amputation above the knee without any complications. He has a history of chronic systolic and diastolic heart failure, chronic atrial fibrillation, he was on anticoagulation with Eliquis despite that he still had organizing thrombus of the femoral popliteal arterial system based on the pathology result Physical Exam Vital Signs: Temp Pulse Resp BP Pulse Ox 98.7 F 60 16 94/59 L 99 12/11/18 19:26 12/11/18 19:26 12/11/18 19:26 12/11/18 19:26 12/11/18 19:26 Intake & Output 12/10/18 12/11/18 12/12/18 06:59 06:59 06:59 Intake Total 834 200 620 Output Total 480 300 300 Balance 354 -100 320 Weight 56.2 kg 59.2 kg General appearance: PRESENT: no acute distress, well-developed, well-nourished Head exam: PRESENT: atraumatic, normocephalic Eye exam: PRESENT: conjunctiva pink, EOMI, PERRLA Ear exam: PRESENT: normal external ear exam Mouth exam: PRESENT: moist, tongue midline Respiratory exam: PRESENT: clear to auscultation srikanth Cardiovascular exam: PRESENT: RRR, +S1, +S2 Pulses: PRESENT: normal dorsalis pedis pul Vascular exam: PRESENT: normal capillary refill GI/Abdominal exam: PRESENT: normal bowel sounds, soft Rectal exam: PRESENT: deferred Neurological exam: PRESENT: alert, CN II-XII grossly intact Psychiatric exam: PRESENT: appropriate affect, normal mood Skin exam: PRESENT: dry, intact, warm Results Laboratory Results: 12/09/18 04:46 12/11/18 04:46 12/11/18 04:46 Sodium 140.2 Potassium 3.7 Chloride 106 Carbon Dioxide 28 Anion Gap 6 BUN 23 H Creatinine 0.86 Est GFR ( Amer) > 60 Est GFR (Non-Af Amer) > 60 Glucose 96 Calcium 9.0 Impressions: Chest X-Ray 12/05/18 00:00 IMPRESSION: NO ACUTE RADIOGRAPHIC FINDING IN THE CHEST. Qualifiers - * PATIENT BEING DISCHARGED WITH ANY OF THE FOLLOWING DIAGNOSIS: No
[2018-12-11] MEDS: ATORVASTATIN CALCIUM 40 MG TABLET PO SCH (22:56)
[2018-12-12] MEDS: OXYCODONE-ACETAMINOPHEN 5-325 MG TABLET PO PRN (00:06)
[2018-12-12] MEDS: PANTOPRAZOLE SODIUM 40 MG TABLET.DR PO SCH (05:31)
--- NOTE | 2018-12-12 08:38 | RADIOLOGY REPORT (SQ) ---
EXAM DESCRIPTION: CT ABD/PELVIS NO ORAL OR IV COMPLETED DATE/TIME: 12/12/2018 7:56 am REASON FOR STUDY: abdominal pain COMPARISON: None. TECHNIQUE: CT scan of the abdomen and pelvis performed without intravenous or oral contrast. Images reviewed with lung, soft tissue, and bone windows. Reconstructed coronal and sagittal MPR images revi ewed. All images stored on PACS. All CT scanners at this facility use dose modulation, iterative reconstruction, and/or weight based d osing when appropriate to reduce radiation dose to as low as reasonably achievable (ALARA). [facility]: Dose Right [facility]: CareDose [facility]: Dose Right [facility]: Teradose 4D [facility]: RESAAS RADIATION DOSE: CT Rad equipment meets quality standard of care and radiation dose reduction techniq ues were employed. CTDIvol: 6.5 mGy. DLP: 349 mGy-cm.mGy. LIMITATIONS: None. FINDINGS: LOWER CHEST: No significant findings. No nodules or infiltrates. NON-CONTRASTED LIVER, SPLEEN, ADRENALS: Evaluation limited by lack of IV contrast. No identified sign ificant masses. PANCREAS: No masses. No peripancreatic inflammatory changes. GALLBLADDER: Gallstones. No inflammatory changes to suggest cholecystitis. RIGHT KIDNEY AND URETER: Cortical cysts. No suspicious masses. Assessment limited by lack of IV cont rast. No significant calcifications. No hydronephrosis or hydroureter. LEFT KIDNEY AND URETER: Cortical cysts. No suspicious masses. Assessment limited by lack of IV contr ast. No significant calcifications. No hydronephrosis or hydroureter. AORTA AND RETROPERITONEUM: No aneurysm. No retroperitoneal masses or adenopathy. BOWEL AND PERITONEAL CAVITY: Diffuse diverticulosis. No obvious masses or inflammatory changes. No f ree fluid. APPENDIX: Normal. PELVIS, BLADDER, AND ABDOMINAL WALL:No abnormal masses. No free fluid. Bladder normal. BONES: No acute findings. OTHER: No other significant finding. IMPRESSION: 1. Diffuse diverticulosis. No evidence of diverticulitis. 2. Cholelithiasis. COMMENT: Quality ID # [id number]: Final reports with documentation of one or more dose reduction techniques (e.g., Automated exposure control, adjustment of the mA and/or kV according to patient size, use of iterative reconstruction technique) TECHNICAL DOCUMENTATION: JOB ID: [id number] [email or web address]- All Rights Reserved Reading location - IP/workstation name: [email or web address]
[2018-12-12 08:44] VITALS: BP 92/53
[2018-12-12] MEDS: AMIODARONE HCL 200 MG TABLET PO SCH (09:16)
[2018-12-12] MEDS: CARVEDILOL 12.5 MG TABLET PO SCH (09:16)
[2018-12-12] MEDS: SACUBITRIL/VALSARTAN 97 MG/103 MG TABLET PO SCH (09:16)
[2018-12-12] MEDS: ASPIRIN 81 MG TABLET, ENT COATED PO SCH (09:20)
[2018-12-12] MEDS: FUROSEMIDE 40 MG TABLET PO SCH (09:20)
[2018-12-12] MEDS: ACETAMINOPHEN 325 MG TABLET PO PRN (10:18)
== END 2018-12-12 15:14 | DRG 240 ==
LOC: 3N 17:01 → UNDODISIN 17:17
PROVIDERS: ADMIT Internal Medicine; ATTEND Internal Medicine
PROC: 0Y6C0Z2 Detachment at Right Upper Leg, Mid, Open Approach (ICD-10-PCS; principal; 2018-12-06 16:00)
DX: E11.52 Type 2 diabetes mellitus with diabetic peripheral angiopathy with gangrene (principal); I70.261 Atherosclerosis of native arteries of extremities with gangrene, right leg; I50.42 Chronic combined systolic (congestive) and diastolic (congestive) heart failure; Z89.612 Acquired absence of left leg above knee; Z66 Do not resuscitate; I74.3 Embolism and thrombosis of arteries of the lower extremities; I48.2 Chronic atrial fibrillation; G89.29 Other chronic pain; I25.5 Ischemic cardiomyopathy; Z79.01 Long term (current) use of anticoagulants; D64.9 Anemia, unspecified; I11.0 Hypertensive heart disease with heart failure; E78.5 Hyperlipidemia, unspecified; I25.2 Old myocardial infarction; Z87.891 Personal history of nicotine dependence; Z82.49 Family history of ischemic heart disease and other diseases of the circulatory system; Z79.899 Other long term (current) drug therapy
CPT/HCPCS: 01232; 36415; 71045; 74176; 80048; 80053; 80076; 81001; 82962; 85025; 88307; 93005; 93010; 93306; 93926; 93971; J0131; J0330; J0690; J1100; J1170; J2250; J2405; J2704; J3010; J3490; J7030; J7120

== ENCOUNTER 2019-06-11 12:38 | Inpatient (IN) | payer MEDICARE ==
[2019-06-11 14:21] LABS: HEMATOCRIT 45.3 % (37.9-51.0); HEMOGLOBIN 14.7 g/dL (13.5-17.0); MEAN CORPUSCULAR HEMOGLOBIN 26.8 pg (27.0-33.4); MEAN CORPUSCULAR HGB CONC 32.4 g/dL (32.0-36.0); MEAN CORPUSCULAR VOLUME 83 fl (80-97); PLATELET COUNT 205 10^3/uL (150-450); RED BLOOD COUNT 5.47 10^6/uL (4.35-5.55); RED CELL DISTRIBUTION WIDTH 15.4 % (11.5-14.0); WHITE BLOOD COUNT 9.2 10^3/uL (4.0-10.5)
[2019-06-11 14:41] LABS: ALBUMIN 4.5 g/dL (3.5-5.0); ALKALINE PHOSPHATASE 104 U/L (38-126); ANION GAP 13 (5-19); ASPARTATE AMINO TRANSFERASE 67 U/L (17-59); BILIRUBIN,DIRECT 0.3 mg/dL (0.0-0.4); BILIRUBIN,TOTAL 0.7 mg/dL (0.2-1.3); BLOOD UREA NITROGEN 47 mg/dL (7-20); CARBON DIOXIDE 24 mmol/L (22-30); CHLORIDE 108 mmol/L (98-107); GLUCOSE 103 mg/dL (75-110); POTASSIUM 4.6 mmol/L (3.6-5.0); TOTAL PROTEIN 8.4 g/dL (6.3-8.2)
[2019-06-11] MEDS: NORMAL SALINE 1000 ML 1,000 ML IV PRN (15:14)
[2019-06-11] MEDS: CIPROFLOXACIN 400 MG/D5W RTU 400 MG/200 ML RTUPB IV SCH ×2 (15:20→21:29)
[2019-06-11] MEDS ORDERED: TRAMADOL HCL 50 MG TABLET PO PRN (19:05)
[2019-06-11 21:05] LABS: APPEARANCE,URINE CLEAR; BILIRUBIN,URINE NEGATIVE (NEGATIVE); COLOR,URINE YELLOW; GLUCOSE, URINE NEGATIVE (NEGATIVE); KETONES,URINE NEGATIVE (NEGATIVE); LEUKOCYTE ESTERASE,URINE NEGATIVE (NEGATIVE); NITRITE,URINE NEGATIVE (NEGATIVE); PROTEIN,URINE NEGATIVE (NEGATIVE); URINE SPECIFIC GRAVITY 1.013; UROBILINOGEN,URINE NEGATIVE mg/dL (<2.0)
[2019-06-11] MEDS: ATORVASTATIN CALCIUM 40 MG TABLET PO SCH (21:29)
[2019-06-11] MEDS: CARVEDILOL 12.5 MG TABLET PO SCH (21:30)
[2019-06-11] MEDS: APIXABAN 5 MG TABLET PO SCH (21:30)
--- NOTE | 2019-06-11 21:41 | PDOC H&P ---
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 He was brought to the office by his son because of concern that it seems he is acutely ill, he has altered mental status, confusion, burning sensation on urination. He has multiple comorbid conditions essentially wheelchair-bound, he was admitted into the hospital for further evaluation of the symptoms.The initial dipstick urinalysis was negative but he has significant azotemia with serum creatinine of 1.98 suggesting acute kidney injury his baseline serum creatinine is about 1.3- 1.4 Past Medical History Cardiac Medical History: Reports: Atrial Fibrillation, Congestive Heart Failure, Myocardial Infarction, Hyperlipidema, Hypertension, Peripheral Vascular Disease Psychiatric Medical History: Reports: Depression Past Surgical History Past Surgical History: Reports: Cardiac Catheterization, Coronary Artery Bypass Graft, Vascular Surgery - Left AKA, Other - Status post amputation left lower extremity. Social History Smoking Status: Current Every Day Smoker Frequency of Alcohol Use: Occasional Hx Recreational Drug Use: Yes Drugs: Marijuana Hx Prescription Drug Abuse: No Family History Family History: CAD, Hypertension Parental Family History Reviewed: Yes Children Family History Reviewed: Yes Sibling(s) Family History Reviewed.: Yes Medication/Allergy Home Medications: Amiodarone HCl [Cordarone 200 mg Tablet] 200 mg PO BID 06/11/19 Apixaban [Eliquis 5 mg Tablet] 5 mg PO Q12 06/11/19 Aspirin [Aspirin 81 mg Chewable Tablet] 81 mg PO DAILY 06/11/19 Atorvastatin Calcium [Lipitor 40 mg Tablet] 40 mg PO QHS 06/11/19 Carvedilol [Coreg 25 mg Tablet] 25 mg PO BID 06/11/19 Furosemide [Lasix 40 mg Tablet] 40 mg PO DAILY 06/11/19 Isosorb Dinit/Hydralazine HCl [Bidil 20-37.5 mg Tablet] 1 tab PO TID 06/11/19 Lansoprazole [Prevacid] 30 mg PO DAILY 06/11/19 Potassium Chloride [Klor-Con M20] 20 mg PO DAILY 06/11/19 Sacubitril/Valsartan [Entresto 97 mg/103 mg Tablet] 1 tab PO BID 06/11/19 Tamsulosin HCl [Flomax 0.4 mg Cap.sr] 0.4 mg PO QPM 06/11/19 Tramadol HCl [Ultram 50 mg Tablet] 50 mg PO Q6HP PRN 06/11/19 Allergies/Adverse Reactions: No Known Allergies Allergy (Verified 08/27/18 16:37) Review of Systems Constitutional: PRESENT: anorexia, fatigue Eyes: ABSENT: visual disturbances Ears: ABSENT: hearing changes Cardiovascular: ABSENT: chest pain, dyspnea on exertion, edema, orthropnea, palpitations Respiratory: ABSENT: cough, hemoptysis Gastrointestinal: ABSENT: abdominal pain, constipation, diarrhea, hematemesis, hematochezia, nausea, vomiting Genitourinary: PRESENT: dysuria. ABSENT: hematuria Musculoskeletal: ABSENT: joint swelling Integumentary: ABSENT: rash, wounds Neurological: ABSENT: abnormal gait, abnormal speech, confusion, dizziness, focal weakness, syncope Psychiatric: ABSENT: anxiety, depression, homidical ideation, suicidal ideation Endocrine: ABSENT: cold intolerance, heat intolerance, menstrual abnormalities, polydipsia, polyuria Hematologic/Lymphatic: ABSENT: easy bleeding, easy bruising, lymphadenopathy Physical Exam Vital Signs: Temp Pulse Resp BP Pulse Ox 98.3 F 60 16 121/77 98 06/11/19 15:22 06/11/19 19:00 06/11/19 15:22 06/11/19 15:22 06/11/19 15:22 Intake & Output 06/10/19 06/11/19 06/12/19 06:59 06:59 06:59 Intake Total 440 Balance 440 Weight 70 kg General appearance: PRESENT: no acute distress Head exam: PRESENT: atraumatic, normocephalic Eye exam: PRESENT: PERRLA Mouth exam: PRESENT: moist, tongue midline Neck exam: PRESENT: full ROM Respiratory exam: PRESENT: clear to auscultation srikanth Cardiovascular exam: PRESENT: RRR, +S1, +S2 Vascular exam: PRESENT: normal capillary refill GI/Abdominal exam: PRESENT: normal bowel sounds, soft Rectal exam: PRESENT: deferred Extremities exam: PRESENT: left AKA, right AKA Neurological exam: PRESENT: alert, CN II-XII grossly intact Psychiatric exam: PRESENT: appropriate affect, normal mood Skin exam: PRESENT: dry, intact, warm Results Laboratory Results: 06/11/19 13:58 06/11/19 13:58 06/11/19 06/11/19 06/11/19 13:58 13:58 20:40 WBC 9.2 RBC 5.47 Hgb 14.7 Hct 45.3 MCV 83 MCH 26.8 L MCHC 32.4 RDW 15.4 H Plt Count 205 Sodium 144.9 Potassium 4.6 Chloride 108 H Carbon Dioxide 24 Anion Gap 13 BUN 47 H Creatinine 1.97 H Est GFR ( Amer) 40 L Glucose 103 Calcium 10.0 Total Bilirubin 0.7 AST 67 H Alkaline Phosphatase 104 Total Protein 8.4 H Albumin 4.5 Urine Color YELLOW Urine Appearance CLEAR Urine pH 5.0 Ur Specific [place] 1.013 Urine Protein NEGATIVE Urine Glucose (UA) NEGATIVE Urine Ketones NEGATIVE Urine Blood NEGATIVE Urine Nitrite NEGATIVE Ur Leukocyte Esterase NEGATIVE Urine WBC (Auto) 0 Urine RBC (Auto) 1 Assessment & Plan - Diagnosis (1) Acute kidney injury Is this a current diagnosis for this admission?: Yes Plan: There is acute kidney injury, probably prerenal, will slowly hydrate patient follow kidney function (2) Chronic combined systolic and diastolic CHF (congestive heart failure) Is this a current diagnosis for this admission?: Yes (3) Chronic atrial fibrillation Is this a current diagnosis for this admission?: Yes
[2019-06-12] MEDS: NORMAL SALINE 1000 ML 1,000 ML IV PRN (03:57)
[2019-06-12] MEDS: PANTOPRAZOLE SODIUM 40 MG TABLET.DR PO SCH (05:22)
[2019-06-12] MEDS: CIPROFLOXACIN 400 MG/D5W RTU 400 MG/200 ML RTUPB IV SCH (09:15)
[2019-06-12] MEDS: ISOSORB DINIT/HYDRALAZINE HCL 20-37.5 MG TABLET PO SCH ×3 (09:16→17:39)
[2019-06-12] MEDS: ASPIRIN 81 MG TABLET, CHEWABLE PO SCH (09:16)
[2019-06-12] MEDS: POTASSIUM CHLORIDE 10 MEQ CAPSULE.ER PO SCH (09:16)
[2019-06-12] MEDS: AMIODARONE HCL 200 MG TABLET PO SCH ×2 (09:16→17:40)
[2019-06-12] MEDS: CARVEDILOL 12.5 MG TABLET PO SCH ×2 (09:16→21:43)
[2019-06-12] MEDS: FUROSEMIDE 40 MG TABLET PO SCH (09:16)
[2019-06-12] MEDS: SACUBITRIL/VALSARTAN 97 MG/103 MG TABLET PO SCH ×2 (09:16→17:40)
[2019-06-12] MEDS: APIXABAN 5 MG TABLET PO SCH ×2 (09:16→21:46)
[2019-06-12] MEDS ORDERED: POTASSIUM CHLORIDE 20 MG PO SCH (10:00)
[2019-06-12] MEDS ORDERED: (PENDING PHARMACY ID) (Lansoprazole [Prevacid] 30 MG) PO SCH (10:00)
[2019-06-12] MEDS ORDERED: BISACODYL 5 MG TABEC PO ONE (17:00)
[2019-06-12] MEDS ORDERED: NORMAL SALINE 500 ML IV ONE (17:00)
[2019-06-12] MEDS: TAMSULOSIN HCL 0.4 MG CAP.SR.24H PO SCH (17:41)
--- NOTE | 2019-06-12 18:33 | PDOC PROGRESS REPORT ---
Subjective Progress Note for:: 06/12/19 Subjective:: Patient seen by the bedside,He had episode of low blood pressure last night requiring boluses of fluid to restore Blood pressure Reason For Visit: UNSPECIFIED ENCEPHALOPATHYUTI,S/P DOUBLE AKA Physical Exam Vital Signs: Temp Pulse Resp BP Pulse Ox 98.2 F 58 L 17 98/64 L 98 06/12/19 16:00 06/12/19 17:34 06/12/19 16:00 06/12/19 17:34 06/12/19 16:00 Intake & Output 06/11/19 06/12/19 06/13/19 06:59 06:59 06:59 Intake Total 1640 1777 Output Total 200 550 Balance 1440 1227 Weight 72.9 kg General appearance: PRESENT: no acute distress Eye exam: PRESENT: PERRLA Respiratory exam: PRESENT: clear to auscultation srikanth Cardiovascular exam: PRESENT: +S1, +S2 GI/Abdominal exam: PRESENT: soft Neurological exam: PRESENT: alert Results Laboratory Results: 06/11/19 13:58 06/11/19 13:58 06/11/19 20:40 Urine Color YELLOW Urine Appearance CLEAR Urine pH 5.0 Ur Specific [place] 1.013 Urine Protein NEGATIVE Urine Glucose (UA) NEGATIVE Urine Ketones NEGATIVE Urine Blood NEGATIVE Urine Nitrite NEGATIVE Ur Leukocyte Esterase NEGATIVE Urine WBC (Auto) 0 Urine RBC (Auto) 1 Assessment & Plan - Diagnosis (1) Acute kidney injury Is this a current diagnosis for this admission?: Yes (2) Chronic atrial fibrillation Is this a current diagnosis for this admission?: Yes (3) Chronic combined systolic and diastolic CHF (congestive heart failure) Is this a current diagnosis for this admission?: Yes
--- NOTE | 2019-06-12 20:36 | RADIOLOGY REPORT (SQ) ---
XR CHEST 2 VIEWS CLINICAL STATEMENT: ? pneumonia COMPARISON: None FINDINGS: Heart is moderately enlarged. Left chest dual-lead pacemaker/AICD device. No pneumothorax. No pulmonary edema. No significant pleural effusions. IMPRESSION: No acute disease.
[2019-06-12 21:43] LABS: URINE AMPHETAMINES SCREEN NEGATIVE; URINE BARBITURATES SCREEN NEGATIVE; URINE BENZODIAZEPINES SCREEN NEGATIVE; URINE COCAINE SCREEN NEGATIVE; URINE METHADONE SCREEN NEGATIVE; URINE PHENCYCLIDINE SCREEN NEGATIVE
[2019-06-12] MEDS: ATORVASTATIN CALCIUM 40 MG TABLET PO SCH (21:46)
[2019-06-12 22:02] LABS: URINE MARIJUANA (THC) SCREEN UNCONFIRMED POSITIVE
[2019-06-13] MEDS: NORMAL SALINE 1000 ML 1,000 ML IV PRN (04:07)
[2019-06-13] MEDS: PANTOPRAZOLE SODIUM 40 MG TABLET.DR PO SCH (05:11)
[2019-06-13] MEDS: CARVEDILOL 12.5 MG TABLET PO SCH ×2 (10:15→21:53)
[2019-06-13] MEDS: FUROSEMIDE 40 MG TABLET PO SCH (10:15)
[2019-06-13] MEDS: POTASSIUM CHLORIDE 10 MEQ CAPSULE.ER PO SCH (10:15)
[2019-06-13] MEDS: APIXABAN 5 MG TABLET PO SCH ×2 (10:15→21:53)
[2019-06-13] MEDS: ASPIRIN 81 MG TABLET, CHEWABLE PO SCH (10:15)
[2019-06-13] MEDS: ISOSORB DINIT/HYDRALAZINE HCL 20-37.5 MG TABLET PO SCH ×3 (10:16→17:23)
[2019-06-13] MEDS: AMIODARONE HCL 200 MG TABLET PO SCH ×2 (10:16→17:23)
[2019-06-13] MEDS: SACUBITRIL/VALSARTAN 97 MG/103 MG TABLET PO SCH ×2 (11:16→17:23)
[2019-06-13] MEDS: TAMSULOSIN HCL 0.4 MG CAP.SR.24H PO SCH (17:23)
[2019-06-13] MEDS: ATORVASTATIN CALCIUM 40 MG TABLET PO SCH (21:53)
--- NOTE | 2019-06-13 22:07 | PDOC PROGRESS REPORT ---
Subjective Progress Note for:: 06/13/19 Subjective:: Patient seen by the bedside, he complain of shortness of breath, will DC IV fluid, he has cardiomyopathy Reason For Visit: TANA Physical Exam Vital Signs: Temp Pulse Resp BP Pulse Ox 98.2 F 60 16 110/72 100 06/13/19 11:46 06/13/19 14:00 06/13/19 11:46 06/13/19 11:46 06/13/19 11:46 Intake & Output 06/12/19 06/13/19 06/14/19 06:59 06:59 06:59 Intake Total 1640 2617 537 Output Total 200 550 650 Balance 1440 2067 -113 Weight 72.9 kg 75.4 kg General appearance: PRESENT: no acute distress Eye exam: PRESENT: PERRLA Respiratory exam: PRESENT: clear to auscultation srikanth Cardiovascular exam: PRESENT: +S1, +S2 GI/Abdominal exam: PRESENT: soft Neurological exam: PRESENT: alert Results Laboratory Results: 06/11/19 13:58 06/11/19 13:58 06/11/19 20:40 Catheterized Urine Urine Culture - Final NO GROWTH 2 DAYS Impressions: Chest X-Ray 06/12/19 00:00 IMPRESSION: No acute disease. Assessment & Plan - Diagnosis (1) Acute kidney injury Is this a current diagnosis for this admission?: Yes (2) Chronic atrial fibrillation Is this a current diagnosis for this admission?: Yes (3) Chronic combined systolic and diastolic CHF (congestive heart failure) Is this a current diagnosis for this admission?: Yes
[2019-06-13 22:15] LABS: ABSOLUTE EOSINOPHILS # (AUTO) 0.1 10^3/uL (0.0-0.6); ABSOLUTE LYMPHOCYTES (AUTO) 1.2 10^3/uL (0.5-4.7); ABSOLUTE MONOCYTES (AUTO) 1.1 10^3/uL (0.1-1.4); ABSOLUTE NEUT (AUTO) 5.6 10^3/uL (1.7-8.2); BASOPHILS % (AUTO) 0.6 % (0-2); EOSINOPHILS % (AUTO) 1.6 % (0-6); HEMATOCRIT 42.7 % (37.9-51.0); HEMOGLOBIN 13.9 g/dL (13.5-17.0); LYMPHOCYTES % (AUTO) 14.7 % (13-45); MEAN CORPUSCULAR HEMOGLOBIN 27.1 pg (27.0-33.4); MEAN CORPUSCULAR HGB CONC 32.4 g/dL (32.0-36.0); MEAN CORPUSCULAR VOLUME 84 fl (80-97); PLATELET COUNT 164 10^3/uL (150-450); RED BLOOD COUNT 5.12 10^6/uL (4.35-5.55); RED CELL DISTRIBUTION WIDTH 15.1 % (11.5-14.0); SEGMENTED NEUTROPHILS % (AUTO) 69.1 % (42-78); TOTAL CELLS COUNTED % (AUTO) 100 %; WHITE BLOOD COUNT 8.2 10^3/uL (4.0-10.5)
[2019-06-13 22:31] LABS: ALBUMIN 3.7 g/dL (3.5-5.0); ALKALINE PHOSPHATASE 86 U/L (38-126); ANION GAP 10 (5-19); ASPARTATE AMINO TRANSFERASE 68 U/L (17-59); BILIRUBIN,DIRECT 0.2 mg/dL (0.0-0.4); BILIRUBIN,TOTAL 0.6 mg/dL (0.2-1.3); BLOOD UREA NITROGEN 27 mg/dL (7-20); CALCIUM 8.8 mg/dL (8.4-10.2); CARBON DIOXIDE 20 mmol/L (22-30); CHLORIDE 111 mmol/L (98-107); GLUCOSE 88 mg/dL (75-110); POTASSIUM 4.2 mmol/L (3.6-5.0); TOTAL PROTEIN 7.2 g/dL (6.3-8.2)
[2019-06-14] MEDS: PANTOPRAZOLE SODIUM 40 MG TABLET.DR PO SCH (06:22)
[2019-06-14 10:12] LABS: ABSOLUTE EOSINOPHILS # (AUTO) 0.1 10^3/uL (0.0-0.6); ABSOLUTE LYMPHOCYTES (AUTO) 0.8 10^3/uL (0.5-4.7); ABSOLUTE MONOCYTES (AUTO) 0.8 10^3/uL (0.1-1.4); ABSOLUTE NEUT (AUTO) 4.3 10^3/uL (1.7-8.2); BASOPHILS % (AUTO) 0.6 % (0-2); HEMATOCRIT 39.7 % (37.9-51.0); HEMOGLOBIN 12.8 g/dL (13.5-17.0); LYMPHOCYTES % (AUTO) 12.6 % (13-45); MEAN CORPUSCULAR HEMOGLOBIN 26.9 pg (27.0-33.4); MEAN CORPUSCULAR HGB CONC 32.3 g/dL (32.0-36.0); MEAN CORPUSCULAR VOLUME 83 fl (80-97); PLATELET COUNT 140 10^3/uL (150-450); RED BLOOD COUNT 4.76 10^6/uL (4.35-5.55); RED CELL DISTRIBUTION WIDTH 15.5 % (11.5-14.0); SEGMENTED NEUTROPHILS % (AUTO) 71.8 % (42-78); TOTAL CELLS COUNTED % (AUTO) 100 %
[2019-06-14] MEDS: CARVEDILOL 12.5 MG TABLET PO SCH ×3 (10:27→21:17)
[2019-06-14] MEDS: FUROSEMIDE 40 MG TABLET PO SCH ×2 (10:28→10:37)
[2019-06-14] MEDS: POTASSIUM CHLORIDE 10 MEQ CAPSULE.ER PO SCH (10:28)
[2019-06-14] MEDS: SACUBITRIL/VALSARTAN 97 MG/103 MG TABLET PO SCH ×2 (10:28→17:35)
[2019-06-14] MEDS: AMIODARONE HCL 200 MG TABLET PO SCH ×2 (10:32→17:29)
[2019-06-14] MEDS: APIXABAN 5 MG TABLET PO SCH ×2 (10:32→21:19)
[2019-06-14] MEDS: ISOSORB DINIT/HYDRALAZINE HCL 20-37.5 MG TABLET PO SCH ×4 (10:33→17:20)
[2019-06-14] MEDS: ASPIRIN 81 MG TABLET, CHEWABLE PO SCH (10:33)
[2019-06-14 10:34] LABS: ALBUMIN 3.1 g/dL (3.5-5.0); ALKALINE PHOSPHATASE 70 U/L (38-126); ANION GAP 9 (5-19); ASPARTATE AMINO TRANSFERASE 59 U/L (17-59); BILIRUBIN,DIRECT 0.2 mg/dL (0.0-0.4); BILIRUBIN,TOTAL 0.4 mg/dL (0.2-1.3); BLOOD UREA NITROGEN 25 mg/dL (7-20); CALCIUM 8.7 mg/dL (8.4-10.2); CARBON DIOXIDE 21 mmol/L (22-30); CHLORIDE 111 mmol/L (98-107); GLUCOSE 112 mg/dL (75-110); TOTAL PROTEIN 6.2 g/dL (6.3-8.2)
[2019-06-14] MEDS: TAMSULOSIN HCL 0.4 MG CAP.SR.24H PO SCH (17:30)
--- NOTE | 2019-06-14 20:53 | XCELERA REPORT ---
[address] [address] Transthoracic Echocardiogram Report Name: BALLESTEROS MOHAN OLIVIER JR Age: 78 yrs Gender: Male : 1940 Patient Status: Inpatient Patient Location: [address] [place] [address] Study Date: 06/14/2019 09:20 AM Height: 36 in Weight: 166 lb BSA: 1.2 m2 Procedure: A two-dimensional transthoracic echocardiogram with color flow and Doppler was performed. Study Quality: Poor. The study was technically difficult with many images being suboptimal in quality. Reason For Study: chf History: CHF. Ordering Physician: CAYETANO RAY Performed By: Homer Link Interpretation Summary The left ventricle is normal in size. There is normal left ventricular wall thickness. LV EF is 45% Left ventricular systolic function is moderately reduced. There is moderate global hypokinesis of the left ventricle. There is an area of the apical inferior wall which is dyskinetic. The right ventricle is not well visualized secondary to technical limitations There is a pacemaker lead in the right ventricle. The left atrial size is normal. Cannot assess ASD ,VSD , or PFO. There is no evidence of mitral valve prolapse. There is a trace amount of mitral regurgitation There is no aortic valvular vegetation. There is no aortic valve stenosis No aortic regurgitation is present. There is no tricuspid stenosis. There is a trace to mild amount of tricuspid regurgitation There is mild pulmonary hypertension by echo RVSP is 34 mm of Hg , with RA mean of 10. There is no pulmonic valvular stenosis. There is a trace amount of pulmonic regurgitation The aortic root is mildly dilated The inferior vena cava appeared normal and decreased > 50% with respiration (RAP 5-10 mmHg) The inferior vena cava was not well visualized There is no pericardial effusion. MMode/2D Measurements & Calculations RVDd: 3.4 cm LVIDd: 5.2 cm FS: 22.9 % Ao root diam: 3.8 cm IVSd: 0.84 cm LVIDs: 4.0 cm EDV(Teich): 127.6 ml Ao root area: 11.1 cm2 LVPWd: 0.82 cm ESV(Teich): 69.3 ml LA dimension: 3.3 cm EF(Teich): 45.7 % Doppler Measurements & Calculations MV E max isidra: MV P1/2t max isidra: Ao V2 max: LV V1 max P.9 cm/sec 72.0 cm/sec 92.6 cm/sec 2.8 mmHg MV P1/2t: 60.1 msec Ao max PG: LV V1 max: MVA(P1/2t): 3.7 cm2 3.4 mmHg 83.0 cm/sec MV dec slope: 350.8 cm/sec2 MV dec time: 0.20 sec PA V2 max: PI end-d isidra: TR max isidra: MV P1/2t-pr_phl: 53.5 cm/sec 59.7 cm/sec 245.7 cm/sec 60.1 msec PA max PG: TR max P.1 mmHg 24.1 mmHg Left Ventricle The left ventricle is normal in size. There is normal left ventricular wall thickness. LV EF is 45%. Left ventricular systolic function is moderately reduced. LV diastolic function could not be adequately assessed due to atrial fibrilation. There is moderate global hypokinesis of the left ventricle. There is an area of the apical inferior wall which is dyskinetic. Right Ventricle The right ventricle is not well visualized secondary to technical limitations. There is a pacemaker lead in the right ventricle. Atria Right atrium not well visualized secondary to technical limitations. The left atrial size is normal. Cannot assess ASD ,VSD , or PFO. Mitral Valve There is no evidence of mitral valve prolapse. There is no vegetation seen on the mitral valve. There is no mitral valve stenosis. There is a trace amount of mitral regurgitation. Aortic Valve There is no aortic valvular vegetation. There is no aortic valve stenosis. No aortic regurgitation is present. Tricuspid Valve There is no tricuspid stenosis. There is a trace to mild amount of tricuspid regurgitation. There is mild pulmonary hypertension by echo. RVSP is 34 mm of Hg , with RA mean of 10. Pulmonic Valve There is no pulmonic valvular stenosis. There is a trace amount of pulmonic regurgitation. Great Vessels The aortic root is mildly dilated. The inferior vena cava appeared normal and decreased > 50% with respiration (RAP 5-10 mmHg). The inferior vena cava was not well visualized. Effusions There is no pericardial effusion. : CAYETANO RAY Lakshmi
[2019-06-14] MEDS: ATORVASTATIN CALCIUM 40 MG TABLET PO SCH (21:19)
--- NOTE | 2019-06-14 21:40 | PDOC PROGRESS REPORT ---
Subjective Progress Note for:: 06/14/19 Subjective:: Patient is a double amputee, short of breath, 2D echo, EF 45%, blood pressure fluctuating, not safe for discharge home Reason For Visit: TANA Physical Exam Vital Signs: Temp Pulse Resp BP Pulse Ox 98.3 F 60 16 107/70 95 06/14/19 20:03 06/14/19 20:03 06/14/19 20:03 06/14/19 20:03 06/14/19 20:03 Intake & Output 06/13/19 06/14/19 06/15/19 06:59 06:59 06:59 Intake Total 2617 1859 345 Output Total 550 650 1 Balance 2067 1209 344 Weight 75.4 kg 76.6 kg General appearance: PRESENT: mild distress Eye exam: PRESENT: PERRLA Respiratory exam: PRESENT: rhonchi Cardiovascular exam: PRESENT: +S1, +S2, systolic murmur GI/Abdominal exam: PRESENT: soft Extremities exam: PRESENT: left AKA, right AKA Results Laboratory Results: 06/14/19 09:15 06/14/19 09:15 06/13/19 06/13/19 06/14/19 22:07 22:07 09:15 WBC 8.2 RBC 5.12 Hgb 13.9 Hct 42.7 MCV 84 MCH 27.1 MCHC 32.4 RDW 15.1 H Plt Count 164 Seg Neutrophils % 69.1 Sodium 141.0 140.7 Potassium 4.2 4.0 Chloride 111 H 111 H Carbon Dioxide 20 L 21 L Anion Gap 10 9 BUN 27 H 25 H Creatinine 1.57 H 1.56 H Est GFR ( Amer) 52 L 52 L Glucose 88 112 H Calcium 8.8 8.7 Total Bilirubin 0.6 0.4 AST 68 H 59 Alkaline Phosphatase 86 70 Total Protein 7.2 6.2 L Albumin 3.7 3.1 L 06/14/19 09:15 WBC 6.0 RBC 4.76 Hgb 12.8 L Hct 39.7 MCV 83 MCH 26.9 L MCHC 32.3 RDW 15.5 H Plt Count 140 L Seg Neutrophils % 71.8 Sodium Potassium Chloride Carbon Dioxide Anion Gap BUN Creatinine Est GFR ( Amer) Glucose Calcium Total Bilirubin AST Alkaline Phosphatase Total Protein Albumin Impressions: Chest X-Ray 06/12/19 00:00 IMPRESSION: No acute disease. Assessment & Plan - Diagnosis (1) Acute kidney injury Is this a current diagnosis for this admission?: Yes (2) Chronic atrial fibrillation Is this a current diagnosis for this admission?: Yes (3) Chronic combined systolic and diastolic CHF (congestive heart failure) Is this a current diagnosis for this admission?: Yes (4) Hypotension Qualifiers: Hypotension type: unspecified hypotension type Qualified Code(s): I95.9 - Hypotension, unspecified Is this a current diagnosis for this admission?: Yes Plan: He has a background cardiomyopathy the blood pressure is low, could not get the anti-ischemic drug including beta-justo, Entresto, the medications were held, no safe for discharge in this condition, clearly a recipe for readmission very quickly
[2019-06-15] MEDS: PANTOPRAZOLE SODIUM 40 MG TABLET.DR PO SCH (05:10)
[2019-06-15 09:23] LABS: ABSOLUTE BASOPHILS # (AUTO) 0.1 10^3/uL (0.0-0.2); ABSOLUTE EOSINOPHILS # (AUTO) 0.1 10^3/uL (0.0-0.6); ABSOLUTE MONOCYTES (AUTO) 0.9 10^3/uL (0.1-1.4); ABSOLUTE NEUT (AUTO) 4.9 10^3/uL (1.7-8.2); EOSINOPHILS % (AUTO) 1.9 % (0-6); HEMATOCRIT 41.2 % (37.9-51.0); HEMOGLOBIN 13.3 g/dL (13.5-17.0); LYMPHOCYTES % (AUTO) 14.6 % (13-45); MEAN CORPUSCULAR HEMOGLOBIN 26.8 pg (27.0-33.4); MEAN CORPUSCULAR HGB CONC 32.2 g/dL (32.0-36.0); MEAN CORPUSCULAR VOLUME 83 fl (80-97); MONOCYTES % (AUTO) 12.5 % (3-13); PLATELET COUNT 150 10^3/uL (150-450); RED BLOOD COUNT 4.96 10^6/uL (4.35-5.55); RED CELL DISTRIBUTION WIDTH 15.3 % (11.5-14.0); TOTAL CELLS COUNTED % (AUTO) 100 %; WHITE BLOOD COUNT 6.9 10^3/uL (4.0-10.5)
[2019-06-15 09:40] LABS: ALBUMIN 3.2 g/dL (3.5-5.0); ALKALINE PHOSPHATASE 78 U/L (38-126); ANION GAP 7 (5-19); ASPARTATE AMINO TRANSFERASE 65 U/L (17-59); BILIRUBIN,DIRECT 0.2 mg/dL (0.0-0.4); BILIRUBIN,TOTAL 0.6 mg/dL (0.2-1.3); BLOOD UREA NITROGEN 21 mg/dL (7-20); CARBON DIOXIDE 23 mmol/L (22-30); CHLORIDE 110 mmol/L (98-107); GLUCOSE 88 mg/dL (75-110); POTASSIUM 4.5 mmol/L (3.6-5.0); TOTAL PROTEIN 6.5 g/dL (6.3-8.2)
--- NOTE | 2019-06-15 11:20 | PDOC PROGRESS REPORT ---
Subjective Progress Note for:: 06/15/19 Subjective:: Patient is currently doing fair Patient was admitted for the renal failure hypertension's Currently all getting better Patient's blood pressure is better Patient echocardiogram shows EF is 45%'s Patient's denied any chest pain to than any shortness of the breath Reason For Visit: TANA Physical Exam Vital Signs: Temp Pulse Resp BP Pulse Ox 98.2 F 60 17 131/75 H 100 06/15/19 08:00 06/15/19 08:00 06/15/19 08:00 06/15/19 08:00 06/15/19 08:00 Intake & Output 06/14/19 06/15/19 06/16/19 06:59 06:59 06:59 Intake Total 1859 463 Output Total 650 1 Balance 1209 462 Weight 76.6 kg 79.1 kg General appearance: PRESENT: no acute distress, well-developed, well-nourished Head exam: PRESENT: atraumatic, normocephalic Eye exam: PRESENT: conjunctiva pink, EOMI, PERRLA. ABSENT: scleral icterus Ear exam: PRESENT: normal external ear exam Mouth exam: PRESENT: moist, tongue midline Neck exam: PRESENT: full ROM. ABSENT: carotid bruit, JVD, lymphadenopathy, thyromegaly Respiratory exam: PRESENT: clear to auscultation srikanth Cardiovascular exam: PRESENT: RRR. ABSENT: diastolic murmur, rubs, systolic murmur Vascular exam: PRESENT: normal capillary refill GI/Abdominal exam: PRESENT: normal bowel sounds, soft. ABSENT: distended, guarding, mass, organolmegaly, rebound, tenderness Rectal exam: PRESENT: deferred Additional comments: Bilateral amputations Neurological exam: PRESENT: alert, awake, oriented to person, oriented to place. ABSENT: motor sensory deficit Psychiatric exam: PRESENT: appropriate affect, normal mood. ABSENT: homicidal ideation, suicidal ideation Skin exam: PRESENT: dry, intact, warm. ABSENT: cyanosis, rash Results Laboratory Results: 06/15/19 08:56 06/15/19 08:56 06/15/19 06/15/19 08:56 08:56 WBC 6.9 RBC 4.96 Hgb 13.3 L Hct 41.2 MCV 83 MCH 26.8 L MCHC 32.2 RDW 15.3 H Plt Count 150 Seg Neutrophils % 70.0 Sodium 140.0 Potassium 4.5 Chloride 110 H Carbon Dioxide 23 Anion Gap 7 BUN 21 H Creatinine 1.39 H Est GFR ( Amer) > 60 Glucose 88 Calcium 9.0 Total Bilirubin 0.6 AST 65 H Alkaline Phosphatase 78 Total Protein 6.5 Albumin 3.2 L Impressions: Chest X-Ray 06/12/19 00:00 IMPRESSION: No acute disease. Assessment & Plan - Diagnosis (1) Acute kidney injury Is this a current diagnosis for this admission?: Yes (2) Chronic atrial fibrillation Is this a current diagnosis for this admission?: Yes (3) Chronic combined systolic and diastolic CHF (congestive heart failure) Is this a current diagnosis for this admission?: Yes (4) Anemia Qualifiers: Anemia type: unspecified type Qualified Code(s): D64.9 - Anemia, unspecified Is this a current diagnosis for this admission?: Yes (5) Cardiomyopathy Qualifiers: Cardiomyopathy type: unspecified Qualified Code(s): I42.9 - Cardiomyopathy, unspecified Is this a current diagnosis for this admission?: Yes - Time Time Spent with patient: 15-24 minutes Medications reviewed and adjusted accordingly: Yes Anticipated discharge: SNF Within: Other - Plan Summary Plan Summary: Patient is currently stable All blood work is stable Blood pressure is all improving Continues to current medications
[2019-06-15] MEDS: FUROSEMIDE 40 MG TABLET PO SCH (12:14)
[2019-06-15] MEDS: POTASSIUM CHLORIDE 10 MEQ CAPSULE.ER PO SCH (12:14)
[2019-06-15] MEDS: AMIODARONE HCL 200 MG TABLET PO SCH ×2 (12:15→17:20)
[2019-06-15] MEDS: SACUBITRIL/VALSARTAN 97 MG/103 MG TABLET PO SCH ×2 (12:15→17:16)
[2019-06-15] MEDS: ISOSORB DINIT/HYDRALAZINE HCL 20-37.5 MG TABLET PO SCH ×3 (12:15→17:15)
[2019-06-15] MEDS: APIXABAN 5 MG TABLET PO SCH ×2 (12:15→21:21)
[2019-06-15] MEDS: ASPIRIN 81 MG TABLET, CHEWABLE PO SCH (12:15)
[2019-06-15] MEDS: CARVEDILOL 12.5 MG TABLET PO SCH ×2 (12:15→22:49)
[2019-06-15] MEDS: TAMSULOSIN HCL 0.4 MG CAP.SR.24H PO SCH (17:20)
[2019-06-15] MEDS ORDERED: NORMAL SALINE 1000 ML 1,000 ML IV PRN (19:45)
[2019-06-15] MEDS: ATORVASTATIN CALCIUM 40 MG TABLET PO SCH (21:21)
[2019-06-16] MEDS: PANTOPRAZOLE SODIUM 40 MG TABLET.DR PO SCH (05:21)
[2019-06-16 09:38] LABS: ABSOLUTE BASOPHILS # (AUTO) 0.1 10^3/uL (0.0-0.2); ABSOLUTE EOSINOPHILS # (AUTO) 0.1 10^3/uL (0.0-0.6); ABSOLUTE MONOCYTES (AUTO) 0.9 10^3/uL (0.1-1.4); ABSOLUTE NEUT (AUTO) 5.5 10^3/uL (1.7-8.2); BASOPHILS % (AUTO) 0.7 % (0-2); EOSINOPHILS % (AUTO) 1.3 % (0-6); HEMATOCRIT 41.6 % (37.9-51.0); HEMOGLOBIN 13.5 g/dL (13.5-17.0); LYMPHOCYTES % (AUTO) 12.8 % (13-45); MEAN CORPUSCULAR HEMOGLOBIN 27.1 pg (27.0-33.4); MEAN CORPUSCULAR HGB CONC 32.4 g/dL (32.0-36.0); MEAN CORPUSCULAR VOLUME 83 fl (80-97); MONOCYTES % (AUTO) 12.2 % (3-13); PLATELET COUNT 142 10^3/uL (150-450); RED BLOOD COUNT 4.98 10^6/uL (4.35-5.55); TOTAL CELLS COUNTED % (AUTO) 100 %; WHITE BLOOD COUNT 7.6 10^3/uL (4.0-10.5)
[2019-06-16 09:57] LABS: ALBUMIN 3.3 g/dL (3.5-5.0); ALKALINE PHOSPHATASE 76 U/L (38-126); ANION GAP 10 (5-19); ASPARTATE AMINO TRANSFERASE 72 U/L (17-59); BILIRUBIN,DIRECT 0.2 mg/dL (0.0-0.4); BILIRUBIN,TOTAL 0.6 mg/dL (0.2-1.3); BLOOD UREA NITROGEN 22 mg/dL (7-20); CALCIUM 8.7 mg/dL (8.4-10.2); CARBON DIOXIDE 22 mmol/L (22-30); CHLORIDE 107 mmol/L (98-107); GLUCOSE 108 mg/dL (75-110); POTASSIUM 4.1 mmol/L (3.6-5.0); TOTAL PROTEIN 6.8 g/dL (6.3-8.2)
--- NOTE | 2019-06-16 10:12 | PDOC PROGRESS REPORT ---
Subjective Progress Note for:: 06/16/19 Subjective:: Patient is currently doing well Patient's blood pressure is still running low Try to cut down the Coreg dose and Entresto dose Hold the hydralazine right now Reason For Visit: TANA Physical Exam Vital Signs: Temp Pulse Resp BP Pulse Ox 98.2 F 59 L 14 130/85 H 98 06/16/19 08:05 06/16/19 08:05 06/16/19 08:05 06/16/19 08:05 06/16/19 08:05 Intake & Output 06/15/19 06/16/19 06/17/19 06:59 06:59 06:59 Intake Total 463 986 Output Total 1 200 Balance 462 786 Weight 79.1 kg 79 kg General appearance: PRESENT: no acute distress, well-developed, well-nourished Head exam: PRESENT: atraumatic, normocephalic Eye exam: PRESENT: conjunctiva pink, EOMI, PERRLA. ABSENT: scleral icterus Ear exam: PRESENT: normal external ear exam Mouth exam: PRESENT: moist, tongue midline Neck exam: PRESENT: full ROM. ABSENT: carotid bruit, JVD, lymphadenopathy, thyromegaly Respiratory exam: PRESENT: clear to auscultation srikanth Cardiovascular exam: PRESENT: RRR. ABSENT: diastolic murmur, rubs, systolic murmur Pulses: PRESENT: normal dorsalis pedis pul, +2 pedal pulses bilateral Vascular exam: PRESENT: normal capillary refill GI/Abdominal exam: PRESENT: normal bowel sounds, soft. ABSENT: distended, guarding, mass, organolmegaly, rebound, tenderness Rectal exam: PRESENT: deferred Neurological exam: PRESENT: alert, awake, oriented to person, oriented to place, oriented to time. ABSENT: motor sensory deficit Psychiatric exam: PRESENT: appropriate affect, normal mood. ABSENT: homicidal ideation, suicidal ideation Skin exam: PRESENT: dry, intact, warm. ABSENT: cyanosis, rash Results Laboratory Results: 06/16/19 09:18 06/16/19 09:18 06/16/19 06/16/19 09:18 09:18 WBC 7.6 RBC 4.98 Hgb 13.5 Hct 41.6 MCV 83 MCH 27.1 MCHC 32.4 RDW 15.0 H Plt Count 142 L Seg Neutrophils % 73.0 Sodium 139.3 Potassium 4.1 Chloride 107 Carbon Dioxide 22 Anion Gap 10 BUN 22 H Creatinine 1.51 H Est GFR ( Amer) 54 L Glucose 108 Calcium 8.7 Total Bilirubin 0.6 AST 72 H Alkaline Phosphatase 76 Total Protein 6.8 Albumin 3.3 L Impressions: Chest X-Ray 06/12/19 00:00 IMPRESSION: No acute disease. Assessment & Plan - Diagnosis (1) Acute kidney injury Is this a current diagnosis for this admission?: Yes (2) Chronic atrial fibrillation Is this a current diagnosis for this admission?: Yes (3) Chronic combined systolic and diastolic CHF (congestive heart failure) Is this a current diagnosis for this admission?: Yes (4) Anemia Qualifiers: Anemia type: unspecified type Qualified Code(s): D64.9 - Anemia, unspecified Is this a current diagnosis for this admission?: Yes (5) Cardiomyopathy Qualifiers: Cardiomyopathy type: unspecified Qualified Code(s): I42.9 - Cardiomyopathy, unspecified Is this a current diagnosis for this admission?: Yes - Time Time Spent with patient: 15-24 minutes Medications reviewed and adjusted accordingly: Yes Within: Other - Plan Summary Plan Summary: Try to readjust the dose of the medications Currently hold the hydralazine I think is a big challenge about the patient's blood pressure at this points but patient is currently asymptomatic
[2019-06-16] MEDS: AMIODARONE HCL 200 MG TABLET PO SCH ×2 (10:32→18:06)
[2019-06-16] MEDS: APIXABAN 5 MG TABLET PO SCH ×2 (10:32→21:19)
[2019-06-16] MEDS: ASPIRIN 81 MG TABLET, CHEWABLE PO SCH (10:32)
[2019-06-16] MEDS: POTASSIUM CHLORIDE 10 MEQ CAPSULE.ER PO SCH (10:32)
[2019-06-16] MEDS: ISOSORB DINIT/HYDRALAZINE HCL 20-37.5 MG TABLET PO SCH ×3 (11:14→18:06)
[2019-06-16] MEDS: FUROSEMIDE 40 MG TABLET PO SCH (11:15)
[2019-06-16] MEDS: CARVEDILOL 12.5 MG TABLET PO SCH ×2 (11:33→21:18)
[2019-06-16] MEDS: SACUBITRIL/VALSARTAN 97 MG/103 MG TABLET PO SCH (11:33)
[2019-06-16] MEDS: TAMSULOSIN HCL 0.4 MG CAP.SR.24H PO SCH (18:05)
[2019-06-16] MEDS: SACUBITRIL/VALSARTAN 24 MG/26 MG TABLET PO SCH (18:06)
[2019-06-16] MEDS: ATORVASTATIN CALCIUM 40 MG TABLET PO SCH (21:19)
[2019-06-17] MEDS: PANTOPRAZOLE SODIUM 40 MG TABLET.DR PO SCH (06:22)
[2019-06-17 09:08] LABS: ABSOLUTE EOSINOPHILS # (AUTO) 0.1 10^3/uL (0.0-0.6); ABSOLUTE LYMPHOCYTES (AUTO) 0.9 10^3/uL (0.5-4.7); ABSOLUTE MONOCYTES (AUTO) 0.9 10^3/uL (0.1-1.4); ABSOLUTE NEUT (AUTO) 5.1 10^3/uL (1.7-8.2); BASOPHILS % (AUTO) 0.5 % (0-2); EOSINOPHILS % (AUTO) 1.9 % (0-6); HEMATOCRIT 40.5 % (37.9-51.0); HEMOGLOBIN 13.2 g/dL (13.5-17.0); LYMPHOCYTES % (AUTO) 12.9 % (13-45); MEAN CORPUSCULAR HGB CONC 32.5 g/dL (32.0-36.0); MEAN CORPUSCULAR VOLUME 83 fl (80-97); MONOCYTES % (AUTO) 13.1 % (3-13); PLATELET COUNT 137 10^3/uL (150-450); RED BLOOD COUNT 4.88 10^6/uL (4.35-5.55); RED CELL DISTRIBUTION WIDTH 15.2 % (11.5-14.0); SEGMENTED NEUTROPHILS % (AUTO) 71.6 % (42-78); TOTAL CELLS COUNTED % (AUTO) 100 %; WHITE BLOOD COUNT 7.1 10^3/uL (4.0-10.5)
[2019-06-17 09:30] LABS: ALBUMIN 3.1 g/dL (3.5-5.0); ALKALINE PHOSPHATASE 85 U/L (38-126); ANION GAP 8 (5-19); ASPARTATE AMINO TRANSFERASE 79 U/L (17-59); BILIRUBIN,DIRECT 0.2 mg/dL (0.0-0.4); BILIRUBIN,TOTAL 0.6 mg/dL (0.2-1.3); BLOOD UREA NITROGEN 19 mg/dL (7-20); CALCIUM 8.9 mg/dL (8.4-10.2); CARBON DIOXIDE 21 mmol/L (22-30); CHLORIDE 109 mmol/L (98-107); GLUCOSE 88 mg/dL (75-110); POTASSIUM 4.1 mmol/L (3.6-5.0); TOTAL PROTEIN 6.4 g/dL (6.3-8.2)
[2019-06-17] MEDS: ISOSORB DINIT/HYDRALAZINE HCL 20-37.5 MG TABLET PO SCH ×3 (11:30→18:10)
[2019-06-17] MEDS: AMIODARONE HCL 200 MG TABLET PO SCH ×2 (12:03→18:14)
[2019-06-17] MEDS: POTASSIUM CHLORIDE 10 MEQ CAPSULE.ER PO SCH (12:03)
[2019-06-17] MEDS: APIXABAN 5 MG TABLET PO SCH ×2 (12:04→21:24)
[2019-06-17] MEDS: FUROSEMIDE 40 MG TABLET PO SCH (12:04)
[2019-06-17] MEDS: ASPIRIN 81 MG TABLET, CHEWABLE PO SCH (12:04)
[2019-06-17] MEDS: CARVEDILOL 12.5 MG TABLET PO SCH ×2 (15:38→21:23)
[2019-06-17] MEDS: SACUBITRIL/VALSARTAN 24 MG/26 MG TABLET PO SCH ×2 (15:39→18:11)
[2019-06-17] MEDS: TAMSULOSIN HCL 0.4 MG CAP.SR.24H PO SCH (18:14)
[2019-06-17] MEDS: ATORVASTATIN CALCIUM 40 MG TABLET PO SCH (21:24)
--- NOTE | 2019-06-17 22:14 | PDOC PROGRESS REPORT ---
Subjective Progress Note for:: 06/17/19 Subjective:: Patient seen by the bedside, blood pressure fluctuating widely Reason For Visit: TANA Physical Exam Vital Signs: Temp Pulse Resp BP Pulse Ox 98.1 F 60 18 92/66 L 100 06/17/19 15:14 06/17/19 19:00 06/17/19 15:14 06/17/19 15:14 06/17/19 15:14 Intake & Output 06/16/19 06/17/19 06/18/19 06:59 06:59 06:59 Intake Total 986 825 475 Output Total 200 120 250 Balance 786 705 225 Weight 79 kg 79.7 kg General appearance: PRESENT: no acute distress Eye exam: PRESENT: PERRLA Respiratory exam: PRESENT: clear to auscultation srikanth Cardiovascular exam: PRESENT: +S1, +S2 GI/Abdominal exam: PRESENT: soft Results Laboratory Results: 06/17/19 08:21 06/17/19 08:21 06/17/19 06/17/19 08:21 08:21 WBC 7.1 RBC 4.88 Hgb 13.2 L Hct 40.5 MCV 83 MCH 27.0 MCHC 32.5 RDW 15.2 H Plt Count 137 L Seg Neutrophils % 71.6 Sodium 138.0 Potassium 4.1 Chloride 109 H Carbon Dioxide 21 L Anion Gap 8 BUN 19 Creatinine 1.35 H Est GFR ( Amer) > 60 Glucose 88 Calcium 8.9 Total Bilirubin 0.6 AST 79 H Alkaline Phosphatase 85 Total Protein 6.4 Albumin 3.1 L Impressions: Chest X-Ray 06/12/19 00:00 IMPRESSION: No acute disease. Assessment & Plan - Diagnosis (1) Acute kidney injury Is this a current diagnosis for this admission?: Yes (2) Chronic atrial fibrillation Is this a current diagnosis for this admission?: Yes (3) Chronic combined systolic and diastolic CHF (congestive heart failure) Is this a current diagnosis for this admission?: Yes (4) Hypotension Qualifiers: Hypotension type: unspecified hypotension type Qualified Code(s): I95.9 - Hypotension, unspecified Is this a current diagnosis for this admission?: Yes
[2019-06-18] MEDS: PANTOPRAZOLE SODIUM 40 MG TABLET.DR PO SCH (06:20)
[2019-06-18 09:58] LABS: ABSOLUTE BASOPHILS # (AUTO) 0.1 10^3/uL (0.0-0.2); ABSOLUTE EOSINOPHILS # (AUTO) 0.1 10^3/uL (0.0-0.6); ABSOLUTE MONOCYTES (AUTO) 0.9 10^3/uL (0.1-1.4); ABSOLUTE NEUT (AUTO) 4.7 10^3/uL (1.7-8.2); BASOPHILS % (AUTO) 1.1 % (0-2); EOSINOPHILS % (AUTO) 1.7 % (0-6); HEMATOCRIT 40.3 % (37.9-51.0); HEMOGLOBIN 13.2 g/dL (13.5-17.0); LYMPHOCYTES % (AUTO) 14.4 % (13-45); MEAN CORPUSCULAR HEMOGLOBIN 26.8 pg (27.0-33.4); MEAN CORPUSCULAR HGB CONC 32.7 g/dL (32.0-36.0); MEAN CORPUSCULAR VOLUME 82 fl (80-97); MONOCYTES % (AUTO) 13.6 % (3-13); PLATELET COUNT 127 10^3/uL (150-450); RED BLOOD COUNT 4.92 10^6/uL (4.35-5.55); RED CELL DISTRIBUTION WIDTH 15.1 % (11.5-14.0); SEGMENTED NEUTROPHILS % (AUTO) 69.2 % (42-78); TOTAL CELLS COUNTED % (AUTO) 100 %; WHITE BLOOD COUNT 6.9 10^3/uL (4.0-10.5)
[2019-06-18 10:24] LABS: ALBUMIN 3.4 g/dL (3.5-5.0); ALKALINE PHOSPHATASE 91 U/L (38-126); ANION GAP 11 (5-19); ASPARTATE AMINO TRANSFERASE 129 U/L (17-59); BILIRUBIN,DIRECT 0.3 mg/dL (0.0-0.4); BILIRUBIN,TOTAL 0.7 mg/dL (0.2-1.3); BLOOD UREA NITROGEN 22 mg/dL (7-20); CALCIUM 8.8 mg/dL (8.4-10.2); CARBON DIOXIDE 23 mmol/L (22-30); CHLORIDE 105 mmol/L (98-107); GLUCOSE 85 mg/dL (75-110); POTASSIUM 4.4 mmol/L (3.6-5.0); TOTAL PROTEIN 7.1 g/dL (6.3-8.2)
[2019-06-18] MEDS: FUROSEMIDE 40 MG TABLET PO SCH (10:48)
[2019-06-18] MEDS: CARVEDILOL 12.5 MG TABLET PO SCH ×2 (10:48→21:21)
[2019-06-18] MEDS: APIXABAN 5 MG TABLET PO SCH ×2 (10:49→21:22)
[2019-06-18] MEDS: POTASSIUM CHLORIDE 10 MEQ CAPSULE.ER PO SCH (10:49)
[2019-06-18] MEDS: ASPIRIN 81 MG TABLET, CHEWABLE PO SCH (10:49)
[2019-06-18] MEDS: ISOSORB DINIT/HYDRALAZINE HCL 20-37.5 MG TABLET PO SCH ×3 (11:52→17:06)
[2019-06-18] MEDS: SACUBITRIL/VALSARTAN 24 MG/26 MG TABLET PO SCH ×2 (11:52→17:48)
[2019-06-18] MEDS: AMIODARONE HCL 200 MG TABLET PO SCH ×2 (11:52→17:12)
[2019-06-18] MEDS: TAMSULOSIN HCL 0.4 MG CAP.SR.24H PO SCH (17:12)
--- NOTE | 2019-06-18 21:15 | PDOC PROGRESS REPORT ---
Subjective Progress Note for:: 06/18/19 Subjective:: Patient seen, blood pressure is low, medication adjusted , Reason For Visit: TANA Physical Exam Vital Signs: Temp Pulse Resp BP Pulse Ox 98.8 F 59 L 14 97/65 L 92 06/18/19 16:29 06/18/19 16:29 06/18/19 07:54 06/18/19 16:29 06/18/19 16:29 Intake & Output 06/17/19 06/18/19 06/19/19 06:59 06:59 06:59 Intake Total 825 595 440 Output Total 120 450 350 Balance 705 145 90 Weight 79.7 kg 77.2 kg General appearance: PRESENT: no acute distress Eye exam: PRESENT: PERRLA Respiratory exam: PRESENT: clear to auscultation srikanth Cardiovascular exam: PRESENT: +S1, +S2 GI/Abdominal exam: PRESENT: soft Neurological exam: PRESENT: alert Results Laboratory Results: 06/18/19 09:20 06/18/19 09:20 06/18/19 06/18/19 09:20 09:20 WBC 6.9 RBC 4.92 Hgb 13.2 L Hct 40.3 MCV 82 MCH 26.8 L MCHC 32.7 RDW 15.1 H Plt Count 127 L Seg Neutrophils % 69.2 Sodium 138.5 Potassium 4.4 Chloride 105 Carbon Dioxide 23 Anion Gap 11 BUN 22 H Creatinine 1.43 H Est GFR ( Amer) 58 L Glucose 85 Calcium 8.8 Total Bilirubin 0.7 AST 129 H Alkaline Phosphatase 91 Total Protein 7.1 Albumin 3.4 L Impressions: Chest X-Ray 06/12/19 00:00 IMPRESSION: No acute disease. Assessment & Plan - Diagnosis (1) Acute kidney injury Is this a current diagnosis for this admission?: Yes (2) Chronic atrial fibrillation Is this a current diagnosis for this admission?: Yes (3) Chronic combined systolic and diastolic CHF (congestive heart failure) Is this a current diagnosis for this admission?: Yes (4) Hypotension Qualifiers: Hypotension type: unspecified hypotension type Qualified Code(s): I95.9 - Hypotension, unspecified Is this a current diagnosis for this admission?: Yes Plan: Discontinue BiDil
[2019-06-18] MEDS: ATORVASTATIN CALCIUM 40 MG TABLET PO SCH (21:21)
[2019-06-19] MEDS: PANTOPRAZOLE SODIUM 40 MG TABLET.DR PO SCH (06:21)
[2019-06-19 08:55] LABS: ABSOLUTE EOSINOPHILS # (AUTO) 0.1 10^3/uL (0.0-0.6); ABSOLUTE MONOCYTES (AUTO) 1.2 10^3/uL (0.1-1.4); ABSOLUTE NEUT (AUTO) 5.6 10^3/uL (1.7-8.2); BASOPHILS % (AUTO) 0.5 % (0-2); EOSINOPHILS % (AUTO) 1.5 % (0-6); HEMATOCRIT 41.9 % (37.9-51.0); HEMOGLOBIN 13.8 g/dL (13.5-17.0); MEAN CORPUSCULAR HEMOGLOBIN 27.1 pg (27.0-33.4); MEAN CORPUSCULAR VOLUME 82 fl (80-97); MONOCYTES % (AUTO) 15.1 % (3-13); PLATELET COUNT 154 10^3/uL (150-450); RED BLOOD COUNT 5.12 10^6/uL (4.35-5.55); RED CELL DISTRIBUTION WIDTH 15.2 % (11.5-14.0); SEGMENTED NEUTROPHILS % (AUTO) 69.9 % (42-78); TOTAL CELLS COUNTED % (AUTO) 100 %
[2019-06-19 08:59] LABS: ALBUMIN 3.5 g/dL (3.5-5.0); ALKALINE PHOSPHATASE 100 U/L (38-126); ANION GAP 9 (5-19); ASPARTATE AMINO TRANSFERASE 209 U/L (17-59); BILIRUBIN,DIRECT 0.3 mg/dL (0.0-0.4); BILIRUBIN,TOTAL 0.7 mg/dL (0.2-1.3); BLOOD UREA NITROGEN 29 mg/dL (7-20); CALCIUM 9.1 mg/dL (8.4-10.2); CARBON DIOXIDE 24 mmol/L (22-30); CHLORIDE 104 mmol/L (98-107); GLUCOSE 90 mg/dL (75-110); POTASSIUM 4.2 mmol/L (3.6-5.0)
[2019-06-19] MEDS: CARVEDILOL 12.5 MG TABLET PO SCH ×2 (09:26→21:02)
[2019-06-19] MEDS: APIXABAN 5 MG TABLET PO SCH ×2 (09:26→21:03)
[2019-06-19] MEDS: ASPIRIN 81 MG TABLET, CHEWABLE PO SCH (09:26)
[2019-06-19] MEDS: FUROSEMIDE 40 MG TABLET PO SCH (09:26)
[2019-06-19] MEDS: POTASSIUM CHLORIDE 10 MEQ CAPSULE.ER PO SCH (09:26)
[2019-06-19] MEDS: SACUBITRIL/VALSARTAN 24 MG/26 MG TABLET PO SCH ×2 (09:27→17:19)
[2019-06-19] MEDS: AMIODARONE HCL 200 MG TABLET PO SCH ×2 (09:27→17:19)
[2019-06-19] MEDS: TAMSULOSIN HCL 0.4 MG CAP.SR.24H PO SCH (17:18)
[2019-06-19] MEDS: ATORVASTATIN CALCIUM 40 MG TABLET PO SCH (21:03)
--- NOTE | 2019-06-19 21:07 | PDOC PROGRESS REPORT ---
Subjective Progress Note for:: 06/19/19 Subjective:: Patient is alert oriented, medication adjusted Reason For Visit: TANA Physical Exam Vital Signs: Temp Pulse Resp BP Pulse Ox 98.7 F 60 17 99/67 L 99 06/19/19 15:15 06/19/19 19:00 06/19/19 15:15 06/19/19 15:15 06/19/19 15:15 Intake & Output 06/18/19 06/19/19 06/20/19 06:59 06:59 06:59 Intake Total 595 440 444 Output Total 450 350 300 Balance 145 90 144 Weight 77.2 kg 77.2 kg General appearance: PRESENT: no acute distress Eye exam: PRESENT: PERRLA Respiratory exam: PRESENT: clear to auscultation srikanth Cardiovascular exam: PRESENT: +S1, +S2 GI/Abdominal exam: PRESENT: soft Neurological exam: PRESENT: alert Results Laboratory Results: 06/19/19 08:34 06/19/19 08:34 06/19/19 06/19/19 08:34 08:34 WBC 8.0 RBC 5.12 Hgb 13.8 Hct 41.9 MCV 82 MCH 27.1 MCHC 33.0 RDW 15.2 H Plt Count 154 Seg Neutrophils % 69.9 Sodium 137.4 Potassium 4.2 Chloride 104 Carbon Dioxide 24 Anion Gap 9 BUN 29 H Creatinine 1.63 H Est GFR ( Amer) 50 L Glucose 90 Calcium 9.1 Total Bilirubin 0.7 AST 209 H Alkaline Phosphatase 100 Total Protein 7.0 Albumin 3.5 Impressions: Chest X-Ray 06/12/19 00:00 IMPRESSION: No acute disease. Assessment & Plan - Diagnosis (1) Acute kidney injury Is this a current diagnosis for this admission?: Yes (2) Chronic atrial fibrillation Is this a current diagnosis for this admission?: Yes (3) Chronic combined systolic and diastolic CHF (congestive heart failure) Is this a current diagnosis for this admission?: Yes (4) Hypotension Qualifiers: Hypotension type: unspecified hypotension type Qualified Code(s): I95.9 - Hypotension, unspecified Is this a current diagnosis for this admission?: Yes
[2019-06-20] MEDS: CARVEDILOL 12.5 MG TABLET PO SCH ×3 (00:14→09:20)
[2019-06-20] MEDS: PANTOPRAZOLE SODIUM 40 MG TABLET.DR PO SCH (05:31)
[2019-06-20 09:13] LABS: ABSOLUTE BASOPHILS # (AUTO) 0.1 10^3/uL (0.0-0.2); ABSOLUTE EOSINOPHILS # (AUTO) 0.1 10^3/uL (0.0-0.6); ABSOLUTE MONOCYTES (AUTO) 1.2 10^3/uL (0.1-1.4); ABSOLUTE NEUT (AUTO) 6.2 10^3/uL (1.7-8.2); BASOPHILS % (AUTO) 0.7 % (0-2); EOSINOPHILS % (AUTO) 1.5 % (0-6); HEMOGLOBIN 14.6 g/dL (13.5-17.0); LYMPHOCYTES % (AUTO) 11.7 % (13-45); MEAN CORPUSCULAR HEMOGLOBIN 26.6 pg (27.0-33.4); MEAN CORPUSCULAR HGB CONC 32.5 g/dL (32.0-36.0); MEAN CORPUSCULAR VOLUME 82 fl (80-97); MONOCYTES % (AUTO) 13.6 % (3-13); PLATELET COUNT 160 10^3/uL (150-450); RED CELL DISTRIBUTION WIDTH 15.5 % (11.5-14.0); SEGMENTED NEUTROPHILS % (AUTO) 72.5 % (42-78); TOTAL CELLS COUNTED % (AUTO) 100 %; WHITE BLOOD COUNT 8.5 10^3/uL (4.0-10.5)
[2019-06-20] MEDS: SACUBITRIL/VALSARTAN 24 MG/26 MG TABLET PO SCH ×2 (09:18→17:03)
[2019-06-20] MEDS: APIXABAN 5 MG TABLET PO SCH ×2 (09:18→21:28)
[2019-06-20] MEDS: ASPIRIN 81 MG TABLET, CHEWABLE PO SCH (09:18)
[2019-06-20] MEDS: AMIODARONE HCL 200 MG TABLET PO SCH ×2 (09:18→17:03)
[2019-06-20] MEDS: FUROSEMIDE 40 MG TABLET PO SCH (09:18)
[2019-06-20] MEDS: POTASSIUM CHLORIDE 10 MEQ CAPSULE.ER PO SCH (09:18)
[2019-06-20 09:35] LABS: ALBUMIN 3.8 g/dL (3.5-5.0); ALKALINE PHOSPHATASE 106 U/L (38-126); ANION GAP 10 (5-19); ASPARTATE AMINO TRANSFERASE 726 U/L (17-59); BILIRUBIN,DIRECT 0.3 mg/dL (0.0-0.4); BILIRUBIN,TOTAL 0.9 mg/dL (0.2-1.3); BLOOD UREA NITROGEN 36 mg/dL (7-20); CALCIUM 9.6 mg/dL (8.4-10.2); CARBON DIOXIDE 26 mmol/L (22-30); CHLORIDE 102 mmol/L (98-107); GLUCOSE 100 mg/dL (75-110); POTASSIUM 4.6 mmol/L (3.6-5.0); TOTAL PROTEIN 7.6 g/dL (6.3-8.2)
[2019-06-20] MEDS: TAMSULOSIN HCL 0.4 MG CAP.SR.24H PO SCH (17:03)
--- NOTE | 2019-06-20 21:21 | PDOC PROGRESS REPORT ---
Subjective Progress Note for:: 06/20/19 Subjective:: Disposition is a problem in this patient, discharge planning is working on placement Reason For Visit: TANA Physical Exam Vital Signs: Temp Pulse Resp BP Pulse Ox 98.7 F 60 16 94/55 L 96 06/20/19 15:43 06/20/19 19:00 06/20/19 15:43 06/20/19 15:43 06/20/19 15:43 Intake & Output 06/19/19 06/20/19 06/21/19 06:59 06:59 06:59 Intake Total 440 888 444 Output Total 350 300 125 Balance 90 588 319 Weight 77.2 kg 74.7 kg General appearance: PRESENT: no acute distress Eye exam: PRESENT: PERRLA Respiratory exam: PRESENT: clear to auscultation srikanth Cardiovascular exam: PRESENT: +S1, +S2 GI/Abdominal exam: PRESENT: soft Neurological exam: PRESENT: alert Results Laboratory Results: 06/20/19 09:03 06/20/19 09:03 06/20/19 06/20/19 09:03 09:03 WBC 8.5 RBC 5.50 Hgb 14.6 Hct 45.0 MCV 82 MCH 26.6 L MCHC 32.5 RDW 15.5 H Plt Count 160 Seg Neutrophils % 72.5 Sodium 138.0 Potassium 4.6 Chloride 102 Carbon Dioxide 26 Anion Gap 10 BUN 36 H Creatinine 2.00 H Est GFR ( Amer) 39 L Glucose 100 Calcium 9.6 Total Bilirubin 0.9 AST 726 H Alkaline Phosphatase 106 Total Protein 7.6 Albumin 3.8 Impressions: Chest X-Ray 06/12/19 00:00 IMPRESSION: No acute disease. Assessment & Plan - Diagnosis (1) Acute kidney injury Is this a current diagnosis for this admission?: Yes (2) Chronic atrial fibrillation Is this a current diagnosis for this admission?: Yes (3) Chronic combined systolic and diastolic CHF (congestive heart failure) Is this a current diagnosis for this admission?: Yes (4) Hypotension Qualifiers: Hypotension type: unspecified hypotension type Qualified Code(s): I95.9 - Hypotension, unspecified Is this a current diagnosis for this admission?: Yes
[2019-06-20] MEDS: CARVEDILOL 3.125 MG TABLET PO SCH (21:26)
[2019-06-20] MEDS: ATORVASTATIN CALCIUM 40 MG TABLET PO SCH (21:29)
[2019-06-21] MEDS: PANTOPRAZOLE SODIUM 40 MG TABLET.DR PO SCH (05:40)
[2019-06-21] MEDS: POTASSIUM CHLORIDE 10 MEQ CAPSULE.ER PO SCH (09:30)
[2019-06-21] MEDS: APIXABAN 5 MG TABLET PO SCH ×2 (09:30→21:06)
[2019-06-21] MEDS: ASPIRIN 81 MG TABLET, CHEWABLE PO SCH (09:31)
[2019-06-21] MEDS: SACUBITRIL/VALSARTAN 24 MG/26 MG TABLET PO SCH ×2 (09:32→17:24)
[2019-06-21] MEDS: CARVEDILOL 3.125 MG TABLET PO SCH ×2 (09:32→21:02)
[2019-06-21] MEDS: FUROSEMIDE 40 MG TABLET PO SCH (09:32)
[2019-06-21] MEDS: AMIODARONE HCL 200 MG TABLET PO SCH ×2 (09:32→17:24)
[2019-06-21 09:48] LABS: ABSOLUTE BASOPHILS # (AUTO) 0.1 10^3/uL (0.0-0.2); ABSOLUTE EOSINOPHILS # (AUTO) 0.2 10^3/uL (0.0-0.6); ABSOLUTE LYMPHOCYTES (AUTO) 0.9 10^3/uL (0.5-4.7); ABSOLUTE MONOCYTES (AUTO) 1.3 10^3/uL (0.1-1.4); ABSOLUTE NEUT (AUTO) 6.5 10^3/uL (1.7-8.2); BASOPHILS % (AUTO) 0.7 % (0-2); EOSINOPHILS % (AUTO) 1.8 % (0-6); HEMATOCRIT 46.1 % (37.9-51.0); LYMPHOCYTES % (AUTO) 9.8 % (13-45); MEAN CORPUSCULAR HEMOGLOBIN 26.8 pg (27.0-33.4); MEAN CORPUSCULAR HGB CONC 32.6 g/dL (32.0-36.0); MEAN CORPUSCULAR VOLUME 82 fl (80-97); MONOCYTES % (AUTO) 14.8 % (3-13); PLATELET COUNT 173 10^3/uL (150-450); RED BLOOD COUNT 5.61 10^6/uL (4.35-5.55); RED CELL DISTRIBUTION WIDTH 15.6 % (11.5-14.0); SEGMENTED NEUTROPHILS % (AUTO) 72.9 % (42-78); TOTAL CELLS COUNTED % (AUTO) 100 %; WHITE BLOOD COUNT 8.9 10^3/uL (4.0-10.5)
[2019-06-21 10:10] LABS: ALKALINE PHOSPHATASE 120 U/L (38-126); ANION GAP 14 (5-19); BILIRUBIN,DIRECT 0.6 mg/dL (0.0-0.4); BLOOD UREA NITROGEN 52 mg/dL (7-20); CALCIUM 9.6 mg/dL (8.4-10.2); CARBON DIOXIDE 22 mmol/L (22-30); CHLORIDE 101 mmol/L (98-107); GLUCOSE 123 mg/dL (75-110); POTASSIUM 4.5 mmol/L (3.6-5.0); TOTAL PROTEIN 7.8 g/dL (6.3-8.2)
[2019-06-21 10:29] LABS: ASPARTATE AMINO TRANSFERASE 1312 U/L (17-59)
[2019-06-21] MEDS: TAMSULOSIN HCL 0.4 MG CAP.SR.24H PO SCH (17:29)
[2019-06-21] MEDS: ATORVASTATIN CALCIUM 40 MG TABLET PO SCH (21:06)
--- NOTE | 2019-06-21 22:13 | PDOC PROGRESS REPORT ---
Subjective Progress Note for:: 06/21/19 Subjective:: Patient seen by the bedside the blood pressure continues to fluctuate, awaiting placement Reason For Visit: TANA Physical Exam Vital Signs: Temp Pulse Resp BP Pulse Ox 98.2 F 60 16 84/51 L 96 06/21/19 20:02 06/21/19 20:02 06/21/19 20:02 06/21/19 20:02 06/21/19 20:02 Intake & Output 06/20/19 06/21/19 06/22/19 06:59 06:59 06:59 Intake Total 888 1238 960 Output Total 300 125 Balance 588 1113 960 Weight 74.7 kg 71.7 kg General appearance: PRESENT: no acute distress Eye exam: PRESENT: PERRLA Respiratory exam: PRESENT: clear to auscultation srikanth Cardiovascular exam: PRESENT: +S1, +S2 GI/Abdominal exam: PRESENT: soft Results Laboratory Results: 06/21/19 09:13 06/21/19 09:13 06/21/19 06/21/19 09:13 09:13 WBC 8.9 RBC 5.61 H Hgb 15.0 Hct 46.1 MCV 82 MCH 26.8 L MCHC 32.6 RDW 15.6 H Plt Count 173 Seg Neutrophils % 72.9 Sodium 136.9 L Potassium 4.5 Chloride 101 Carbon Dioxide 22 Anion Gap 14 BUN 52 H Creatinine 3.25 H Est GFR ( Amer) 22 L Glucose 123 H Calcium 9.6 Total Bilirubin 1.0 AST 1312 H Alkaline Phosphatase 120 Total Protein 7.8 Albumin 4.0 Impressions: Chest X-Ray 06/12/19 00:00 IMPRESSION: No acute disease. Assessment & Plan - Diagnosis (1) Acute kidney injury Is this a current diagnosis for this admission?: Yes (2) Chronic atrial fibrillation Is this a current diagnosis for this admission?: Yes (3) Chronic combined systolic and diastolic CHF (congestive heart failure) Is this a current diagnosis for this admission?: Yes (4) Hypotension Qualifiers: Hypotension type: unspecified hypotension type Qualified Code(s): I95.9 - Hypotension, unspecified Is this a current diagnosis for this admission?: Yes
[2019-06-22] MEDS: PANTOPRAZOLE SODIUM 40 MG TABLET.DR PO SCH (05:11)
[2019-06-22 09:20] LABS: ABSOLUTE EOSINOPHILS # (AUTO) 0.2 10^3/uL (0.0-0.6); ABSOLUTE LYMPHOCYTES (AUTO) 0.9 10^3/uL (0.5-4.7); ABSOLUTE MONOCYTES (AUTO) 1.1 10^3/uL (0.1-1.4); ABSOLUTE NEUT (AUTO) 5.9 10^3/uL (1.7-8.2); BASOPHILS % (AUTO) 0.4 % (0-2); HEMATOCRIT 43.3 % (37.9-51.0); HEMOGLOBIN 14.2 g/dL (13.5-17.0); MEAN CORPUSCULAR HGB CONC 32.7 g/dL (32.0-36.0); MEAN CORPUSCULAR VOLUME 82 fl (80-97); MONOCYTES % (AUTO) 13.5 % (3-13); PLATELET COUNT 153 10^3/uL (150-450); RED BLOOD COUNT 5.27 10^6/uL (4.35-5.55); RED CELL DISTRIBUTION WIDTH 15.7 % (11.5-14.0); SEGMENTED NEUTROPHILS % (AUTO) 73.1 % (42-78); TOTAL CELLS COUNTED % (AUTO) 100 %
[2019-06-22] MEDS: AMIODARONE HCL 200 MG TABLET PO SCH ×2 (09:31→17:13)
[2019-06-22] MEDS: APIXABAN 5 MG TABLET PO SCH ×2 (09:31→21:12)
[2019-06-22] MEDS: ASPIRIN 81 MG TABLET, CHEWABLE PO SCH (09:31)
[2019-06-22] MEDS: CARVEDILOL 3.125 MG TABLET PO SCH ×2 (09:32→21:10)
[2019-06-22] MEDS: POTASSIUM CHLORIDE 10 MEQ CAPSULE.ER PO SCH (09:32)
[2019-06-22] MEDS: SACUBITRIL/VALSARTAN 24 MG/26 MG TABLET PO SCH ×2 (09:32→17:14)
[2019-06-22] MEDS: FUROSEMIDE 40 MG TABLET PO SCH (09:32)
[2019-06-22 10:42] LABS: ALBUMIN 3.6 g/dL (3.5-5.0); ALKALINE PHOSPHATASE 119 U/L (38-126); ANION GAP 10 (5-19); BILIRUBIN,DIRECT 0.5 mg/dL (0.0-0.4); BILIRUBIN,TOTAL 0.9 mg/dL (0.2-1.3); BLOOD UREA NITROGEN 51 mg/dL (7-20); CALCIUM 9.1 mg/dL (8.4-10.2); CARBON DIOXIDE 24 mmol/L (22-30); CHLORIDE 104 mmol/L (98-107); GLUCOSE 144 mg/dL (75-110); POTASSIUM 4.4 mmol/L (3.6-5.0); TOTAL PROTEIN 7.8 g/dL (6.3-8.2)
[2019-06-22 10:50] LABS: ASPARTATE AMINO TRANSFERASE 1247 U/L (17-59)
--- NOTE | 2019-06-22 16:07 | PDOC PROGRESS REPORT ---
Subjective Progress Note for:: 06/22/19 Subjective:: Patient seen by the bedside no new complaints Reason For Visit: TANA Physical Exam Vital Signs: Temp Pulse Resp BP Pulse Ox 98.5 F 60 14 86/72 L 96 06/22/19 11:28 06/22/19 11:28 06/22/19 11:28 06/22/19 11:28 06/22/19 11:28 Intake & Output 06/21/19 06/22/19 06/23/19 06:59 06:59 06:59 Intake Total 1238 1078 240 Output Total 125 Balance 1113 1078 240 Weight 71.7 kg 72.2 kg General appearance: PRESENT: no acute distress Eye exam: PRESENT: PERRLA Respiratory exam: PRESENT: clear to auscultation srikanth Cardiovascular exam: PRESENT: +S1, +S2 GI/Abdominal exam: PRESENT: soft Neurological exam: PRESENT: alert Results Laboratory Results: 06/22/19 09:01 06/22/19 10:03 06/22/19 06/22/19 06/22/19 09:01 09:01 10:03 WBC 8.0 RBC 5.27 Hgb 14.2 Hct 43.3 MCV 82 MCH 27.0 MCHC 32.7 RDW 15.7 H Plt Count 153 Seg Neutrophils % 73.1 Sodium Cancelled 137.5 Potassium Cancelled 4.4 Chloride Cancelled 104 Carbon Dioxide Cancelled 24 Anion Gap Cancelled 10 BUN Cancelled 51 H Creatinine Cancelled 2.75 H Est GFR ( Amer) Cancelled 27 L Est GFR (Non-Af Amer) Cancelled Glucose Cancelled 144 H Calcium Cancelled 9.1 Total Bilirubin Cancelled 0.9 AST Cancelled 1247 H Alkaline Phosphatase Cancelled 119 Total Protein Cancelled 7.8 Albumin Cancelled 3.6 Impressions: Chest X-Ray 06/12/19 00:00 IMPRESSION: No acute disease. Assessment & Plan - Diagnosis (1) Acute kidney injury Is this a current diagnosis for this admission?: Yes (2) Chronic atrial fibrillation Is this a current diagnosis for this admission?: Yes (3) Chronic combined systolic and diastolic CHF (congestive heart failure) Is this a current diagnosis for this admission?: Yes (4) Hypotension Qualifiers: Hypotension type: unspecified hypotension type Qualified Code(s): I95.9 - Hypotension, unspecified Is this a current diagnosis for this admission?: Yes
[2019-06-22] MEDS: TAMSULOSIN HCL 0.4 MG CAP.SR.24H PO SCH (17:18)
[2019-06-22] MEDS: ATORVASTATIN CALCIUM 40 MG TABLET PO SCH (21:12)
[2019-06-23] MEDS: PANTOPRAZOLE SODIUM 40 MG TABLET.DR PO SCH (05:34)
[2019-06-23 09:16] LABS: ABSOLUTE BASOPHILS # (AUTO) 0.1 10^3/uL (0.0-0.2); ABSOLUTE EOSINOPHILS # (AUTO) 0.1 10^3/uL (0.0-0.6); ABSOLUTE LYMPHOCYTES (AUTO) 1.1 10^3/uL (0.5-4.7); ABSOLUTE MONOCYTES (AUTO) 1.5 10^3/uL (0.1-1.4); ABSOLUTE NEUT (AUTO) 5.7 10^3/uL (1.7-8.2); BASOPHILS % (AUTO) 0.8 % (0-2); EOSINOPHILS % (AUTO) 1.7 % (0-6); HEMATOCRIT 43.5 % (37.9-51.0); HEMOGLOBIN 14.1 g/dL (13.5-17.0); LYMPHOCYTES % (AUTO) 12.8 % (13-45); MEAN CORPUSCULAR HEMOGLOBIN 26.7 pg (27.0-33.4); MEAN CORPUSCULAR HGB CONC 32.4 g/dL (32.0-36.0); MEAN CORPUSCULAR VOLUME 82 fl (80-97); MONOCYTES % (AUTO) 17.8 % (3-13); PLATELET COUNT 152 10^3/uL (150-450); RED BLOOD COUNT 5.28 10^6/uL (4.35-5.55); RED CELL DISTRIBUTION WIDTH 15.4 % (11.5-14.0); SEGMENTED NEUTROPHILS % (AUTO) 66.9 % (42-78); TOTAL CELLS COUNTED % (AUTO) 100 %; WHITE BLOOD COUNT 8.5 10^3/uL (4.0-10.5)
[2019-06-23] MEDS: AMIODARONE HCL 200 MG TABLET PO SCH ×2 (09:24→17:05)
[2019-06-23] MEDS: POTASSIUM CHLORIDE 10 MEQ CAPSULE.ER PO SCH (09:24)
[2019-06-23] MEDS: CARVEDILOL 3.125 MG TABLET PO SCH ×2 (09:24→21:50)
[2019-06-23] MEDS: SACUBITRIL/VALSARTAN 24 MG/26 MG TABLET PO SCH ×2 (09:24→17:05)
[2019-06-23] MEDS: ASPIRIN 81 MG TABLET, CHEWABLE PO SCH (09:29)
[2019-06-23] MEDS: FUROSEMIDE 40 MG TABLET PO SCH (09:29)
[2019-06-23] MEDS: APIXABAN 5 MG TABLET PO SCH ×2 (09:29→22:03)
[2019-06-23 09:33] LABS: ALBUMIN 3.4 g/dL (3.5-5.0); ALKALINE PHOSPHATASE 124 U/L (38-126); ANION GAP 8 (5-19); BILIRUBIN,DIRECT 0.6 mg/dL (0.0-0.4); BILIRUBIN,TOTAL 0.9 mg/dL (0.2-1.3); BLOOD UREA NITROGEN 46 mg/dL (7-20); CALCIUM 9.2 mg/dL (8.4-10.2); CARBON DIOXIDE 25 mmol/L (22-30); CHLORIDE 105 mmol/L (98-107); GLUCOSE 104 mg/dL (75-110); POTASSIUM 4.9 mmol/L (3.6-5.0)
[2019-06-23 09:48] LABS: ASPARTATE AMINO TRANSFERASE 1138 U/L (17-59)
--- NOTE | 2019-06-23 14:48 | PDOC PROGRESS REPORT ---
Subjective Progress Note for:: 06/23/19 Subjective:: Patient seen by the bedside no new complaints Reason For Visit: TANA Physical Exam Vital Signs: Temp Pulse Resp BP Pulse Ox 97.7 F 60 12 113/75 98 06/23/19 11:26 06/23/19 14:00 06/23/19 11:26 06/23/19 11:26 06/23/19 11:26 Intake & Output 06/22/19 06/23/19 06/24/19 06:59 06:59 06:59 Intake Total 1078 480 236 Balance 1078 480 236 Weight 72.2 kg 72.2 kg General appearance: PRESENT: no acute distress Eye exam: PRESENT: PERRLA Respiratory exam: PRESENT: clear to auscultation srikanth Cardiovascular exam: PRESENT: +S1, +S2 GI/Abdominal exam: PRESENT: soft Neurological exam: PRESENT: alert, CN II-XII grossly intact Results Laboratory Results: 06/23/19 09:00 06/23/19 09:00 06/23/19 06/23/19 09:00 09:00 WBC 8.5 RBC 5.28 Hgb 14.1 Hct 43.5 MCV 82 MCH 26.7 L MCHC 32.4 RDW 15.4 H Plt Count 152 Seg Neutrophils % 66.9 Sodium 137.6 Potassium 4.9 Chloride 105 Carbon Dioxide 25 Anion Gap 8 BUN 46 H Creatinine 2.10 H Est GFR ( Amer) 37 L Glucose 104 Calcium 9.2 Total Bilirubin 0.9 AST 1138 H Alkaline Phosphatase 124 Total Protein 7.0 Albumin 3.4 L Impressions: Chest X-Ray 06/12/19 00:00 IMPRESSION: No acute disease. Assessment & Plan - Diagnosis (1) Acute kidney injury Is this a current diagnosis for this admission?: Yes (2) Chronic atrial fibrillation Is this a current diagnosis for this admission?: Yes (3) Chronic combined systolic and diastolic CHF (congestive heart failure) Is this a current diagnosis for this admission?: Yes (4) Hypotension Qualifiers: Hypotension type: unspecified hypotension type Qualified Code(s): I95.9 - H ypotension, unspecified Is this a current diagnosis for this admission?: Yes
[2019-06-23] MEDS: TAMSULOSIN HCL 0.4 MG CAP.SR.24H PO SCH (17:05)
[2019-06-23] MEDS: ATORVASTATIN CALCIUM 40 MG TABLET PO SCH (22:03)
[2019-06-24] MEDS ORDERED: NORMAL SALINE 250 ML IV ONE (00:45)
[2019-06-24] MEDS: PANTOPRAZOLE SODIUM 40 MG TABLET.DR PO SCH (05:50)
[2019-06-24 08:13] LABS: ABSOLUTE BASOPHILS # (AUTO) 0.1 10^3/uL (0.0-0.2); ABSOLUTE EOSINOPHILS # (AUTO) 0.2 10^3/uL (0.0-0.6); ABSOLUTE LYMPHOCYTES (AUTO) 1.1 10^3/uL (0.5-4.7); ABSOLUTE MONOCYTES (AUTO) 1.4 10^3/uL (0.1-1.4); ABSOLUTE NEUT (AUTO) 5.1 10^3/uL (1.7-8.2); BASOPHILS % (AUTO) 0.7 % (0-2); EOSINOPHILS % (AUTO) 1.9 % (0-6); HEMATOCRIT 43.9 % (37.9-51.0); HEMOGLOBIN 14.4 g/dL (13.5-17.0); LYMPHOCYTES % (AUTO) 14.5 % (13-45); MEAN CORPUSCULAR HGB CONC 32.8 g/dL (32.0-36.0); MEAN CORPUSCULAR VOLUME 83 fl (80-97); MONOCYTES % (AUTO) 17.4 % (3-13); PLATELET COUNT 161 10^3/uL (150-450); RED BLOOD COUNT 5.32 10^6/uL (4.35-5.55); RED CELL DISTRIBUTION WIDTH 15.7 % (11.5-14.0); SEGMENTED NEUTROPHILS % (AUTO) 65.5 % (42-78); TOTAL CELLS COUNTED % (AUTO) 100 %; WHITE BLOOD COUNT 7.8 10^3/uL (4.0-10.5)
[2019-06-24 08:32] LABS: ALBUMIN 3.4 g/dL (3.5-5.0); ALKALINE PHOSPHATASE 143 U/L (38-126); ANION GAP 8 (5-19); BILIRUBIN,DIRECT 0.6 mg/dL (0.0-0.4); BILIRUBIN,TOTAL 0.9 mg/dL (0.2-1.3); BLOOD UREA NITROGEN 41 mg/dL (7-20); CALCIUM 9.4 mg/dL (8.4-10.2); CARBON DIOXIDE 24 mmol/L (22-30); CHLORIDE 106 mmol/L (98-107); GLUCOSE 108 mg/dL (75-110); POTASSIUM 4.7 mmol/L (3.6-5.0); TOTAL PROTEIN 7.3 g/dL (6.3-8.2)
[2019-06-24 08:43] LABS: ASPARTATE AMINO TRANSFERASE 1014 U/L (17-59)
[2019-06-24] MEDS: SACUBITRIL/VALSARTAN 24 MG/26 MG TABLET PO SCH ×2 (09:37→17:20)
[2019-06-24] MEDS: AMIODARONE HCL 200 MG TABLET PO SCH ×2 (09:37→17:20)
[2019-06-24] MEDS: CARVEDILOL 3.125 MG TABLET PO SCH ×2 (09:37→21:24)
[2019-06-24] MEDS: POTASSIUM CHLORIDE 10 MEQ CAPSULE.ER PO SCH (09:38)
[2019-06-24] MEDS: FUROSEMIDE 40 MG TABLET PO SCH (09:41)
[2019-06-24] MEDS: ASPIRIN 81 MG TABLET, CHEWABLE PO SCH (09:41)
[2019-06-24] MEDS: APIXABAN 5 MG TABLET PO SCH ×2 (09:41→21:25)
[2019-06-24] MEDS: TAMSULOSIN HCL 0.4 MG CAP.SR.24H PO SCH (17:29)
--- NOTE | 2019-06-24 18:40 | PDOC PROGRESS REPORT ---
Subjective Progress Note for:: 06/24/19 Subjective:: Seen by the bedside, discharge planning making arrangement for placement Reason For Visit: TANA Physical Exam Vital Signs: Temp Pulse Resp BP Pulse Ox 98.8 F 60 16 70/45 L 93 06/24/19 15:12 06/24/19 15:12 06/24/19 15:12 06/24/19 15:12 06/24/19 15:12 Intake & Output 06/23/19 06/24/19 06/25/19 06:59 06:59 06:59 Intake Total 480 486 360 Balance 480 486 360 Weight 72.2 kg 72.7 kg General appearance: PRESENT: no acute distress Eye exam: PRESENT: PERRLA Respiratory exam: PRESENT: clear to auscultation srikanth Cardiovascular exam: PRESENT: +S1, +S2 GI/Abdominal exam: PRESENT: soft Results Laboratory Results: 06/24/19 07:56 06/24/19 07:56 06/24/19 06/24/19 07:56 07:56 WBC 7.8 RBC 5.32 Hgb 14.4 Hct 43.9 MCV 83 MCH 27.0 MCHC 32.8 RDW 15.7 H Plt Count 161 Seg Neutrophils % 65.5 Sodium 138.4 Potassium 4.7 Chloride 106 Carbon Dioxide 24 Anion Gap 8 BUN 41 H Creatinine 1.82 H Est GFR ( Amer) 44 L Glucose 108 Calcium 9.4 Total Bilirubin 0.9 AST 1014 H Alkaline Phosphatase 143 H Total Protein 7.3 Albumin 3.4 L Impressions: Chest X-Ray 06/12/19 00:00 IMPRESSION: No acute disease. Assessment & Plan - Diagnosis (1) Acute kidney injury Is this a current diagnosis for this admission?: Yes (2) Chronic atrial fibrillation Is this a current diagnosis for this admission?: Yes (3) Chronic combined systolic and diastolic CHF (congestive heart failure) Is this a current diagnosis for this admission?: Yes (4) Hypotension Qualifiers: Hypotension type: unspecified hypotension type Qualified Code(s): I95.9 - Hypotension, unspecified Is this a current diagnosis for this admission?: Yes
[2019-06-24] MEDS: ATORVASTATIN CALCIUM 40 MG TABLET PO SCH (21:25)
[2019-06-25] MEDS: PANTOPRAZOLE SODIUM 40 MG TABLET.DR PO SCH (06:00)
[2019-06-25] MEDS: ASPIRIN 81 MG TABLET, CHEWABLE PO SCH (09:21)
[2019-06-25] MEDS: APIXABAN 5 MG TABLET PO SCH ×2 (09:21→21:22)
[2019-06-25] MEDS: AMIODARONE HCL 200 MG TABLET PO SCH ×2 (09:49→17:05)
[2019-06-25] MEDS: POTASSIUM CHLORIDE 10 MEQ CAPSULE.ER PO SCH (09:49)
[2019-06-25] MEDS: SACUBITRIL/VALSARTAN 24 MG/26 MG TABLET PO SCH ×2 (09:49→17:06)
[2019-06-25] MEDS: CARVEDILOL 3.125 MG TABLET PO SCH ×2 (09:49→21:27)
[2019-06-25] MEDS: FUROSEMIDE 40 MG TABLET PO SCH (09:50)
[2019-06-25 10:37] LABS: ABSOLUTE BASOPHILS # (AUTO) 0.1 10^3/uL (0.0-0.2); ABSOLUTE EOSINOPHILS # (AUTO) 0.2 10^3/uL (0.0-0.6); ABSOLUTE MONOCYTES (AUTO) 1.3 10^3/uL (0.1-1.4); ABSOLUTE NEUT (AUTO) 5.2 10^3/uL (1.7-8.2); BASOPHILS % (AUTO) 0.9 % (0-2); EOSINOPHILS % (AUTO) 1.9 % (0-6); HEMATOCRIT 43.8 % (37.9-51.0); HEMOGLOBIN 14.5 g/dL (13.5-17.0); LYMPHOCYTES % (AUTO) 13.4 % (13-45); MEAN CORPUSCULAR HEMOGLOBIN 27.1 pg (27.0-33.4); MEAN CORPUSCULAR VOLUME 82 fl (80-97); MONOCYTES % (AUTO) 16.9 % (3-13); PLATELET COUNT 168 10^3/uL (150-450); RED BLOOD COUNT 5.33 10^6/uL (4.35-5.55); RED CELL DISTRIBUTION WIDTH 15.5 % (11.5-14.0); SEGMENTED NEUTROPHILS % (AUTO) 66.9 % (42-78); TOTAL CELLS COUNTED % (AUTO) 100 %; WHITE BLOOD COUNT 7.8 10^3/uL (4.0-10.5)
[2019-06-25 10:55] LABS: ALBUMIN 3.6 g/dL (3.5-5.0); ALKALINE PHOSPHATASE 137 U/L (38-126); ANION GAP 9 (5-19); ASPARTATE AMINO TRANSFERASE 628 U/L (17-59); BILIRUBIN,DIRECT 0.4 mg/dL (0.0-0.4); BILIRUBIN,TOTAL 0.9 mg/dL (0.2-1.3); BLOOD UREA NITROGEN 27 mg/dL (7-20); CALCIUM 9.4 mg/dL (8.4-10.2); CARBON DIOXIDE 23 mmol/L (22-30); CHLORIDE 105 mmol/L (98-107); GLUCOSE 110 mg/dL (75-110); POTASSIUM 4.8 mmol/L (3.6-5.0); TOTAL PROTEIN 7.6 g/dL (6.3-8.2)
[2019-06-25] MEDS: TAMSULOSIN HCL 0.4 MG CAP.SR.24H PO SCH (17:08)
--- NOTE | 2019-06-25 18:54 | PDOC PROGRESS REPORT ---
Subjective Progress Note for:: 06/25/19 Subjective:: Discharge planning having difficulty getting placement Reason For Visit: TANA Physical Exam Vital Signs: Temp Pulse Resp BP Pulse Ox 98.4 F 60 16 94/43 L 96 06/25/19 15:02 06/25/19 15:02 06/25/19 15:02 06/25/19 15:02 06/25/19 15:02 Intake & Output 06/24/19 06/25/19 06/26/19 06:59 06:59 06:59 Intake Total 486 600 240 Balance 486 600 240 Weight 72.7 kg 72.2 kg General appearance: PRESENT: no acute distress Eye exam: PRESENT: PERRLA Respiratory exam: PRESENT: clear to auscultation srikanth Cardiovascular exam: PRESENT: +S1, +S2 GI/Abdominal exam: PRESENT: soft Neurological exam: PRESENT: alert Results Laboratory Results: 06/25/19 10:05 06/25/19 10:05 06/25/19 06/25/19 10:05 10:05 WBC 7.8 RBC 5.33 Hgb 14.5 Hct 43.8 MCV 82 MCH 27.1 MCHC 33.0 RDW 15.5 H Plt Count 168 Seg Neutrophils % 66.9 Sodium 136.6 L Potassium 4.8 Chloride 105 Carbon Dioxide 23 Anion Gap 9 BUN 27 H Creatinine 1.53 H Est GFR ( Amer) 54 L Glucose 110 Calcium 9.4 Total Bilirubin 0.9 AST 628 H Alkaline Phosphatase 137 H Total Protein 7.6 Albumin 3.6 Impressions: Chest X-Ray 06/12/19 00:00 IMPRESSION: No acute disease. Assessment & Plan - Diagnosis (1) Acute kidney injury Is this a current diagnosis for this admission?: Yes (2) Chronic atrial fibrillation Is this a current diagnosis for this admission?: Yes (3) Chronic combined systolic and diastolic CHF (congestive heart failure) Is this a current diagnosis for this admission?: Yes (4) Hypotension Qualifiers: Hypotension type: unspecified hypotension type Qualified Code(s): I95.9 - Hypotension, unspecified Is this a current diagnosis for this admission?: Yes
[2019-06-25] MEDS: ATORVASTATIN CALCIUM 40 MG TABLET PO SCH (21:22)
[2019-06-26] MEDS: PANTOPRAZOLE SODIUM 40 MG TABLET.DR PO SCH (06:06)
[2019-06-26 09:19] LABS: ABSOLUTE BASOPHILS # (AUTO) 0.1 10^3/uL (0.0-0.2); ABSOLUTE EOSINOPHILS # (AUTO) 0.1 10^3/uL (0.0-0.6); ABSOLUTE LYMPHOCYTES (AUTO) 1.1 10^3/uL (0.5-4.7); ABSOLUTE MONOCYTES (AUTO) 1.2 10^3/uL (0.1-1.4); ABSOLUTE NEUT (AUTO) 5.6 10^3/uL (1.7-8.2); BASOPHILS % (AUTO) 0.8 % (0-2); EOSINOPHILS % (AUTO) 1.8 % (0-6); HEMATOCRIT 43.4 % (37.9-51.0); HEMOGLOBIN 14.1 g/dL (13.5-17.0); LYMPHOCYTES % (AUTO) 13.4 % (13-45); MEAN CORPUSCULAR HEMOGLOBIN 26.7 pg (27.0-33.4); MEAN CORPUSCULAR HGB CONC 32.5 g/dL (32.0-36.0); MEAN CORPUSCULAR VOLUME 82 fl (80-97); MONOCYTES % (AUTO) 15.2 % (3-13); PLATELET COUNT 147 10^3/uL (150-450); RED BLOOD COUNT 5.29 10^6/uL (4.35-5.55); RED CELL DISTRIBUTION WIDTH 15.6 % (11.5-14.0); SEGMENTED NEUTROPHILS % (AUTO) 68.8 % (42-78); TOTAL CELLS COUNTED % (AUTO) 100 %; WHITE BLOOD COUNT 8.1 10^3/uL (4.0-10.5)
[2019-06-26] MEDS: AMIODARONE HCL 200 MG TABLET PO SCH ×2 (09:31→17:20)
[2019-06-26] MEDS: CARVEDILOL 3.125 MG TABLET PO SCH ×2 (09:31→21:34)
[2019-06-26] MEDS: FUROSEMIDE 40 MG TABLET PO SCH (09:32)
[2019-06-26] MEDS: SACUBITRIL/VALSARTAN 24 MG/26 MG TABLET PO SCH ×2 (09:32→17:21)
[2019-06-26] MEDS: POTASSIUM CHLORIDE 10 MEQ CAPSULE.ER PO SCH (09:32)
[2019-06-26 09:39] LABS: ALBUMIN 3.4 g/dL (3.5-5.0); ALKALINE PHOSPHATASE 130 U/L (38-126); ANION GAP 8 (5-19); ASPARTATE AMINO TRANSFERASE 295 U/L (17-59); BILIRUBIN,DIRECT 0.4 mg/dL (0.0-0.4); BILIRUBIN,TOTAL 0.8 mg/dL (0.2-1.3); BLOOD UREA NITROGEN 23 mg/dL (7-20); CALCIUM 9.4 mg/dL (8.4-10.2); CARBON DIOXIDE 24 mmol/L (22-30); CHLORIDE 104 mmol/L (98-107); GLUCOSE 115 mg/dL (75-110); POTASSIUM 4.8 mmol/L (3.6-5.0); TOTAL PROTEIN 7.4 g/dL (6.3-8.2)
[2019-06-26] MEDS: APIXABAN 5 MG TABLET PO SCH ×2 (09:44→21:31)
[2019-06-26] MEDS: ASPIRIN 81 MG TABLET, CHEWABLE PO SCH (09:44)
--- NOTE | 2019-06-26 17:14 | PDOC PROGRESS REPORT ---
Subjective Progress Note for:: 06/26/19 Subjective:: Discharge planning having difficulty getting placement Reason For Visit: TANA Physical Exam Vital Signs: Temp Pulse Resp BP Pulse Ox 98.2 F 60 11 L 94/63 L 97 06/26/19 11:37 06/26/19 14:00 06/26/19 11:37 06/26/19 11:37 06/26/19 11:37 Intake & Output 06/25/19 06/26/19 06/27/19 06:59 06:59 06:59 Intake Total 600 240 225 Balance 600 240 225 Weight 72.2 kg 72.2 kg General appearance: PRESENT: no acute distress Eye exam: PRESENT: PERRLA Respiratory exam: PRESENT: clear to auscultation srikanth Cardiovascular exam: PRESENT: +S1, +S2 GI/Abdominal exam: PRESENT: soft Results Laboratory Results: 06/26/19 09:02 06/26/19 09:02 06/26/19 06/26/19 09:02 09:02 WBC 8.1 RBC 5.29 Hgb 14.1 Hct 43.4 MCV 82 MCH 26.7 L MCHC 32.5 RDW 15.6 H Plt Count 147 L Seg Neutrophils % 68.8 Sodium 135.7 L Potassium 4.8 Chloride 104 Carbon Dioxide 24 Anion Gap 8 BUN 23 H Creatinine 1.34 H Est GFR ( Amer) > 60 Glucose 115 H Calcium 9.4 Total Bilirubin 0.8 AST 295 H Alkaline Phosphatase 130 H Total Protein 7.4 Albumin 3.4 L Impressions: Chest X-Ray 06/12/19 00:00 IMPRESSION: No acute disease. Assessment & Plan - Diagnosis (1) Acute kidney injury Is this a current diagnosis for this admission?: Yes (2) Chronic atrial fibrillation Is this a current diagnosis for this admission?: Yes (3) Chronic combined systolic and diastolic CHF (congestive heart failure) Is this a current diagnosis for this admission?: Yes (4) Hypotension Qualifiers: Hypotension type: unspecified hypotension type Qualified Code(s): I95.9 - Hypotension, unspecified Is this a current diagnosis for this admission?: Yes
[2019-06-26] MEDS: TAMSULOSIN HCL 0.4 MG CAP.SR.24H PO SCH (17:20)
[2019-06-26] MEDS: ATORVASTATIN CALCIUM 40 MG TABLET PO SCH (21:31)
[2019-06-27] MEDS: PANTOPRAZOLE SODIUM 40 MG TABLET.DR PO SCH (06:33)
[2019-06-27 08:18] LABS: ABSOLUTE EOSINOPHILS # (AUTO) 0.1 10^3/uL (0.0-0.6); ABSOLUTE LYMPHOCYTES (AUTO) 1.2 10^3/uL (0.5-4.7); ABSOLUTE MONOCYTES (AUTO) 1.1 10^3/uL (0.1-1.4); ABSOLUTE NEUT (AUTO) 5.1 10^3/uL (1.7-8.2); BASOPHILS % (AUTO) 0.6 % (0-2); HEMATOCRIT 42.2 % (37.9-51.0); HEMOGLOBIN 13.8 g/dL (13.5-17.0); LYMPHOCYTES % (AUTO) 16.1 % (13-45); MEAN CORPUSCULAR HEMOGLOBIN 26.6 pg (27.0-33.4); MEAN CORPUSCULAR HGB CONC 32.6 g/dL (32.0-36.0); MEAN CORPUSCULAR VOLUME 82 fl (80-97); MONOCYTES % (AUTO) 14.5 % (3-13); PLATELET COUNT 144 10^3/uL (150-450); RED BLOOD COUNT 5.17 10^6/uL (4.35-5.55); RED CELL DISTRIBUTION WIDTH 15.1 % (11.5-14.0); SEGMENTED NEUTROPHILS % (AUTO) 66.8 % (42-78); TOTAL CELLS COUNTED % (AUTO) 100 %; WHITE BLOOD COUNT 7.6 10^3/uL (4.0-10.5)
[2019-06-27 08:41] LABS: ALBUMIN 3.3 g/dL (3.5-5.0); ALKALINE PHOSPHATASE 114 U/L (38-126); ANION GAP 8 (5-19); ASPARTATE AMINO TRANSFERASE 163 U/L (17-59); BILIRUBIN,DIRECT 0.4 mg/dL (0.0-0.4); BILIRUBIN,TOTAL 0.8 mg/dL (0.2-1.3); BLOOD UREA NITROGEN 22 mg/dL (7-20); CALCIUM 9.1 mg/dL (8.4-10.2); CARBON DIOXIDE 23 mmol/L (22-30); CHLORIDE 105 mmol/L (98-107); GLUCOSE 95 mg/dL (75-110); POTASSIUM 4.7 mmol/L (3.6-5.0)
[2019-06-27] MEDS: ASPIRIN 81 MG TABLET, CHEWABLE PO SCH (09:15)
[2019-06-27] MEDS: APIXABAN 5 MG TABLET PO SCH ×2 (09:15→21:17)
[2019-06-27] MEDS: AMIODARONE HCL 200 MG TABLET PO SCH ×2 (09:18→17:32)
[2019-06-27] MEDS: SACUBITRIL/VALSARTAN 24 MG/26 MG TABLET PO SCH ×2 (09:18→17:32)
[2019-06-27] MEDS: POTASSIUM CHLORIDE 10 MEQ CAPSULE.ER PO SCH (09:18)
[2019-06-27] MEDS: CARVEDILOL 3.125 MG TABLET PO SCH ×2 (09:18→21:16)
[2019-06-27] MEDS: FUROSEMIDE 40 MG TABLET PO SCH (09:19)
[2019-06-27] MEDS: TAMSULOSIN HCL 0.4 MG CAP.SR.24H PO SCH (17:32)
--- NOTE | 2019-06-27 19:56 | PDOC PROGRESS REPORT ---
Subjective Progress Note for:: 06/27/19 Subjective:: Discharge planning having difficulty getting placement Reason For Visit: TANA Physical Exam Vital Signs: Temp Pulse Resp BP Pulse Ox 98.3 F 60 13 90/60 L 98 06/27/19 15:53 06/27/19 15:53 06/27/19 11:37 06/27/19 15:53 06/27/19 15:53 Intake & Output 06/26/19 06/27/19 06/28/19 06:59 06:59 06:59 Intake Total 240 462 477 Balance 240 462 477 Weight 72.2 kg 74.2 kg General appearance: PRESENT: no acute distress Eye exam: PRESENT: PERRLA Respiratory exam: PRESENT: clear to auscultation srikanth Cardiovascular exam: PRESENT: +S1, +S2 GI/Abdominal exam: PRESENT: soft Neurological exam: PRESENT: alert Results Laboratory Results: 06/27/19 08:05 06/27/19 08:05 06/27/19 06/27/19 08:05 08:05 WBC 7.6 RBC 5.17 Hgb 13.8 Hct 42.2 MCV 82 MCH 26.6 L MCHC 32.6 RDW 15.1 H Plt Count 144 L Seg Neutrophils % 66.8 Sodium 135.6 L Potassium 4.7 Chloride 105 Carbon Dioxide 23 Anion Gap 8 BUN 22 H Creatinine 1.37 H Est GFR ( Amer) > 60 Glucose 95 Calcium 9.1 Total Bilirubin 0.8 AST 163 H Alkaline Phosphatase 114 Total Protein 7.0 Albumin 3.3 L Impressions: Chest X-Ray 06/12/19 00:00 IMPRESSION: No acute disease. Assessment & Plan - Diagnosis (1) Acute kidney injury Is this a current diagnosis for this admission?: Yes (2) Chronic atrial fibrillation Is this a current diagnosis for this admission?: Yes (3) Chronic combined systolic and diastolic CHF (congestive heart failure) Is this a current diagnosis for this admission?: Yes (4) Hypotension Qualifiers: Hypotension type: unspecified hypotension type Qualified Code(s): I95.9 - Hypotension, unspecified Is this a current diagnosis for this admission?: Yes - Time Time Spent with patient: 25-34 minutes
[2019-06-27] MEDS: ATORVASTATIN CALCIUM 40 MG TABLET PO SCH (21:17)
[2019-06-28] MEDS: PANTOPRAZOLE SODIUM 40 MG TABLET.DR PO SCH (05:22)
[2019-06-28 10:43] LABS: ABSOLUTE BASOPHILS # (AUTO) 0.1 10^3/uL (0.0-0.2); ABSOLUTE EOSINOPHILS # (AUTO) 0.2 10^3/uL (0.0-0.6); ABSOLUTE LYMPHOCYTES (AUTO) 1.2 10^3/uL (0.5-4.7); ABSOLUTE NEUT (AUTO) 5.4 10^3/uL (1.7-8.2); BASOPHILS % (AUTO) 1.1 % (0-2); EOSINOPHILS % (AUTO) 2.2 % (0-6); HEMATOCRIT 43.7 % (37.9-51.0); HEMOGLOBIN 14.3 g/dL (13.5-17.0); LYMPHOCYTES % (AUTO) 15.1 % (13-45); MEAN CORPUSCULAR HGB CONC 32.8 g/dL (32.0-36.0); MEAN CORPUSCULAR VOLUME 82 fl (80-97); MONOCYTES % (AUTO) 13.3 % (3-13); PLATELET COUNT 159 10^3/uL (150-450); RED CELL DISTRIBUTION WIDTH 15.7 % (11.5-14.0); SEGMENTED NEUTROPHILS % (AUTO) 68.3 % (42-78); TOTAL CELLS COUNTED % (AUTO) 100 %; WHITE BLOOD COUNT 7.8 10^3/uL (4.0-10.5)
[2019-06-28 11:07] LABS: ALBUMIN 3.4 g/dL (3.5-5.0); ALKALINE PHOSPHATASE 112 U/L (38-126); ANION GAP 10 (5-19); ASPARTATE AMINO TRANSFERASE 107 U/L (17-59); BILIRUBIN,DIRECT 0.4 mg/dL (0.0-0.4); BLOOD UREA NITROGEN 21 mg/dL (7-20); CALCIUM 9.4 mg/dL (8.4-10.2); CARBON DIOXIDE 23 mmol/L (22-30); CHLORIDE 105 mmol/L (98-107); GLUCOSE 95 mg/dL (75-110); POTASSIUM 4.6 mmol/L (3.6-5.0); TOTAL PROTEIN 7.2 g/dL (6.3-8.2)
[2019-06-28] MEDS: CARVEDILOL 3.125 MG TABLET PO SCH ×2 (11:08→21:10)
[2019-06-28] MEDS: AMIODARONE HCL 200 MG TABLET PO SCH ×2 (11:09→18:04)
[2019-06-28] MEDS: FUROSEMIDE 40 MG TABLET PO SCH (11:18)
[2019-06-28] MEDS: ASPIRIN 81 MG TABLET, CHEWABLE PO SCH (11:19)
[2019-06-28] MEDS: POTASSIUM CHLORIDE 10 MEQ CAPSULE.ER PO SCH (11:19)
[2019-06-28] MEDS: APIXABAN 5 MG TABLET PO SCH ×2 (11:19→21:13)
[2019-06-28] MEDS: SACUBITRIL/VALSARTAN 24 MG/26 MG TABLET PO SCH ×2 (11:24→18:09)
[2019-06-28] MEDS: TAMSULOSIN HCL 0.4 MG CAP.SR.24H PO SCH (18:09)
[2019-06-28] MEDS: ATORVASTATIN CALCIUM 40 MG TABLET PO SCH (21:13)
--- NOTE | 2019-06-28 21:13 | PDOC PROGRESS REPORT ---
Subjective Progress Note for:: 06/28/19 Subjective:: Discharge planning having difficulty getting placement Reason For Visit: TANA Physical Exam Vital Signs: Temp Pulse Resp BP Pulse Ox 98.5 F 62 17 106/66 100 06/28/19 20:07 06/28/19 20:07 06/28/19 20:07 06/28/19 20:07 06/28/19 20:07 Intake & Output 06/27/19 06/28/19 06/29/19 06:59 06:59 06:59 Intake Total 462 477 626 Balance 462 477 626 Weight 74.2 kg 71.7 kg General appearance: PRESENT: no acute distress Eye exam: PRESENT: PERRLA Respiratory exam: PRESENT: clear to auscultation srikanth Cardiovascular exam: PRESENT: +S1, +S2 GI/Abdominal exam: PRESENT: soft Results Laboratory Results: 06/28/19 10:00 06/28/19 10:00 06/28/19 06/28/19 10:00 10:00 WBC 7.8 RBC 5.30 Hgb 14.3 Hct 43.7 MCV 82 MCH 27.0 MCHC 32.8 RDW 15.7 H Plt Count 159 Seg Neutrophils % 68.3 Sodium 137.8 Potassium 4.6 Chloride 105 Carbon Dioxide 23 Anion Gap 10 BUN 21 H Creatinine 1.36 H Est GFR ( Amer) > 60 Glucose 95 Calcium 9.4 Total Bilirubin 1.0 AST 107 H Alkaline Phosphatase 112 Total Protein 7.2 Albumin 3.4 L Impressions: Chest X-Ray 06/12/19 00:00 IMPRESSION: No acute disease. Assessment & Plan - Diagnosis (1) Acute kidney injury Is this a current diagnosis for this admission?: Yes Plan: There is acute kidney injury, probably prerenal, will slowly hydrate patient follow kidney function (2) Chronic atrial fibrillation Is this a current diagnosis for this admission?: Yes (3) Chronic combined systolic and diastolic CHF (congestive heart failure) Is this a current diagnosis for this admission?: Yes (4) Hypotension Qualifiers: Hypotension type: unspecified hypotension type Qualified Code(s): I95.9 - Hypotension, unspecified Is this a current diagnosis for this admission?: Yes Plan: Discontinue BiDil - Time Time Spent with patient: 25-34 minutes
[2019-06-29] MEDS: PANTOPRAZOLE SODIUM 40 MG TABLET.DR PO SCH (05:33)
[2019-06-29] MEDS: AMIODARONE HCL 200 MG TABLET PO SCH ×2 (09:39→17:26)
[2019-06-29] MEDS: CARVEDILOL 3.125 MG TABLET PO SCH ×2 (09:39→22:23)
[2019-06-29] MEDS: SACUBITRIL/VALSARTAN 24 MG/26 MG TABLET PO SCH ×2 (09:45→17:33)
[2019-06-29] MEDS: FUROSEMIDE 40 MG TABLET PO SCH (09:46)
[2019-06-29] MEDS: POTASSIUM CHLORIDE 10 MEQ CAPSULE.ER PO SCH (09:46)
[2019-06-29] MEDS: APIXABAN 5 MG TABLET PO SCH ×2 (09:46→22:54)
[2019-06-29] MEDS: ASPIRIN 81 MG TABLET, CHEWABLE PO SCH (09:46)
[2019-06-29 10:04] LABS: ABSOLUTE EOSINOPHILS # (AUTO) 0.2 10^3/uL (0.0-0.6); ABSOLUTE LYMPHOCYTES (AUTO) 1.1 10^3/uL (0.5-4.7); ABSOLUTE MONOCYTES (AUTO) 1.2 10^3/uL (0.1-1.4); ABSOLUTE NEUT (AUTO) 6.2 10^3/uL (1.7-8.2); BASOPHILS % (AUTO) 0.5 % (0-2); EOSINOPHILS % (AUTO) 2.1 % (0-6); HEMATOCRIT 44.3 % (37.9-51.0); HEMOGLOBIN 14.5 g/dL (13.5-17.0); LYMPHOCYTES % (AUTO) 12.6 % (13-45); MEAN CORPUSCULAR HEMOGLOBIN 26.8 pg (27.0-33.4); MEAN CORPUSCULAR HGB CONC 32.7 g/dL (32.0-36.0); MEAN CORPUSCULAR VOLUME 82 fl (80-97); MONOCYTES % (AUTO) 13.9 % (3-13); PLATELET COUNT 181 10^3/uL (150-450); RED BLOOD COUNT 5.42 10^6/uL (4.35-5.55); RED CELL DISTRIBUTION WIDTH 16.1 % (11.5-14.0); SEGMENTED NEUTROPHILS % (AUTO) 70.9 % (42-78); TOTAL CELLS COUNTED % (AUTO) 100 %; WHITE BLOOD COUNT 8.7 10^3/uL (4.0-10.5)
[2019-06-29 10:20] LABS: ALBUMIN 3.4 g/dL (3.5-5.0); ALKALINE PHOSPHATASE 116 U/L (38-126); ANION GAP 12 (5-19); ASPARTATE AMINO TRANSFERASE 72 U/L (17-59); BILIRUBIN,DIRECT 0.4 mg/dL (0.0-0.4); BILIRUBIN,TOTAL 0.7 mg/dL (0.2-1.3); BLOOD UREA NITROGEN 23 mg/dL (7-20); CALCIUM 9.3 mg/dL (8.4-10.2); CARBON DIOXIDE 21 mmol/L (22-30); CHLORIDE 104 mmol/L (98-107); GLUCOSE 141 mg/dL (75-110); POTASSIUM 4.2 mmol/L (3.6-5.0); TOTAL PROTEIN 7.1 g/dL (6.3-8.2)
--- NOTE | 2019-06-29 13:26 | PDOC PROGRESS REPORT ---
Subjective Progress Note for:: 06/29/19 Subjective:: Patient denied chest pain or difficulty with breathing. Nursing staff reported persistent episodes of hypotension with need for medication holding. Reason For Visit: TANA Physical Exam Vital Signs: Temp Pulse Resp BP Pulse Ox 98.3 F 60 18 84/63 L 100 06/29/19 11:42 06/29/19 11:42 06/29/19 11:42 06/29/19 11:42 06/29/19 11:42 Intake & Output 06/28/19 06/29/19 06/30/19 06:59 06:59 06:59 Intake Total 477 626 Balance 477 626 Weight 71.7 kg 72.1 kg General appearance: PRESENT: no acute distress, well-developed, well-nourished Head exam: PRESENT: atraumatic, normocephalic Eye exam: PRESENT: conjunctiva pink. ABSENT: scleral icterus Ear exam: PRESENT: normal external ear exam Mouth exam: PRESENT: moist Respiratory exam: PRESENT: clear to auscultation srikanth Cardiovascular exam: PRESENT: RRR. ABSENT: diastolic murmur, rubs, systolic murmur Vascular exam: ABSENT: pallor GI/Abdominal exam: PRESENT: normal bowel sounds, soft. ABSENT: distended, guarding, mass, organolmegaly, rebound, tenderness Extremities exam: PRESENT: left AKA, right AKA Neurological exam: PRESENT: alert, awake Psychiatric exam: PRESENT: appropriate affect, normal mood. ABSENT: homicidal ideation, suicidal ideation Skin exam: PRESENT: dry, warm Results Laboratory Results: 06/29/19 09:35 06/29/19 09:35 06/29/19 06/29/19 09:35 09:35 WBC 8.7 RBC 5.42 Hgb 14.5 Hct 44.3 MCV 82 MCH 26.8 L MCHC 32.7 RDW 16.1 H Plt Count 181 Seg Neutrophils % 70.9 Sodium 136.9 L Potassium 4.2 Chloride 104 Carbon Dioxide 21 L Anion Gap 12 BUN 23 H Creatinine 1.49 H Est GFR ( Amer) 55 L Glucose 141 H Calcium 9.3 Total Bilirubin 0.7 AST 72 H Alkaline Phosphatase 116 Total Protein 7.1 Albumin 3.4 L Impressions: Chest X-Ray 06/12/19 00:00 IMPRESSION: No acute disease. Assessment & Plan - Diagnosis (1) Hypotension Qualifiers: Hypotension type: unspecified hypotension type Qualified Code(s): I95.9 - Hypotension, unspecified Is this a current diagnosis for this admission?: Yes Plan: Decrease Lasix to 20 mg p.o daily. Hold IV fluid infusion due to his CHF status. Monitor blood pressure to allow administration of his other medication. (2) Acute kidney injury Is this a current diagnosis for this admission?: Yes Plan: Continue current medical management. (3) Chronic atrial fibrillation Is this a current diagnosis for this admission?: Yes Plan: Continue current medical management. (4) Chronic combined systolic and diastolic CHF (congestive heart failure) Is this a current diagnosis for this admission?: Yes Plan: Continue current medical management. - Time Time Spent with patient: 25-34 minutes Medications reviewed and adjusted accordingly: Yes Anticipated discharge: SNF Within: Other - Inpatient Certification Based on my medical assessment, after consideration of the patient's comorbidities, presenting symptoms, or acuity I expect that the services needed warrant INPATIENT care.: Yes I certify that my determination is in accordance with my understanding of Medicare's requirements for reasonable and necessary INPATIENT services [42 CFR 412.3e].: Yes Medical Necessity: Significant Comorbidiites Make Outpatient Treatment Too Risky, Need Close Monitoring Due to Risk of Patient Decompensation, Need For Continuous Telemetry Monitoring, Risk of Complication if Not Cared For in Hospital, Risk of Diagnosis Which Will Require Inpatient Eval/Care/Monitoring Post Hospital Care: D/C or Transfer Summary - Plan Summary Plan Summary: Continue current medical management with adjustment in his Lasix dosage.
[2019-06-29] MEDS: TAMSULOSIN HCL 0.4 MG CAP.SR.24H PO SCH (17:32)
[2019-06-29] MEDS: ATORVASTATIN CALCIUM 40 MG TABLET PO SCH (22:54)
[2019-06-30] MEDS: PANTOPRAZOLE SODIUM 40 MG TABLET.DR PO SCH (07:39)
[2019-06-30 09:03] LABS: ABSOLUTE EOSINOPHILS # (AUTO) 0.2 10^3/uL (0.0-0.6); ABSOLUTE LYMPHOCYTES (AUTO) 1.2 10^3/uL (0.5-4.7); BASOPHILS % (AUTO) 0.4 % (0-2); EOSINOPHILS % (AUTO) 2.3 % (0-6); HEMATOCRIT 44.8 % (37.9-51.0); HEMOGLOBIN 14.5 g/dL (13.5-17.0); LYMPHOCYTES % (AUTO) 12.6 % (13-45); MEAN CORPUSCULAR HEMOGLOBIN 26.8 pg (27.0-33.4); MEAN CORPUSCULAR HGB CONC 32.4 g/dL (32.0-36.0); MEAN CORPUSCULAR VOLUME 83 fl (80-97); MONOCYTES % (AUTO) 10.5 % (3-13); PLATELET COUNT 189 10^3/uL (150-450); RED BLOOD COUNT 5.41 10^6/uL (4.35-5.55); RED CELL DISTRIBUTION WIDTH 15.5 % (11.5-14.0); SEGMENTED NEUTROPHILS % (AUTO) 74.2 % (42-78); TOTAL CELLS COUNTED % (AUTO) 100 %; WHITE BLOOD COUNT 9.4 10^3/uL (4.0-10.5)
[2019-06-30] MEDS: CARVEDILOL 3.125 MG TABLET PO SCH ×2 (09:27→22:02)
[2019-06-30] MEDS: AMIODARONE HCL 200 MG TABLET PO SCH ×2 (09:27→18:18)
[2019-06-30] MEDS: SACUBITRIL/VALSARTAN 24 MG/26 MG TABLET PO SCH ×2 (09:28→18:18)
[2019-06-30] MEDS: ASPIRIN 81 MG TABLET, CHEWABLE PO SCH (09:35)
[2019-06-30] MEDS: POTASSIUM CHLORIDE 10 MEQ CAPSULE.ER PO SCH (09:35)
[2019-06-30] MEDS: APIXABAN 5 MG TABLET PO SCH ×2 (09:35→22:05)
[2019-06-30 09:44] LABS: ALBUMIN 3.5 g/dL (3.5-5.0); ALKALINE PHOSPHATASE 110 U/L (38-126); ANION GAP 13 (5-19); ASPARTATE AMINO TRANSFERASE 57 U/L (17-59); BILIRUBIN,DIRECT 0.4 mg/dL (0.0-0.4); BILIRUBIN,TOTAL 0.7 mg/dL (0.2-1.3); BLOOD UREA NITROGEN 28 mg/dL (7-20); CALCIUM 9.3 mg/dL (8.4-10.2); CARBON DIOXIDE 22 mmol/L (22-30); CHLORIDE 103 mmol/L (98-107); GLUCOSE 147 mg/dL (75-110); POTASSIUM 4.5 mmol/L (3.6-5.0); TOTAL PROTEIN 7.1 g/dL (6.3-8.2)
[2019-06-30] MEDS ORDERED: FUROSEMIDE 20 MG TABLET PO SCH (10:00)
[2019-06-30] MEDS ORDERED: FUROSEMIDE 40 MG TABLET PO SCH (10:00)
[2019-06-30] MEDS: TAMSULOSIN HCL 0.4 MG CAP.SR.24H PO SCH (18:23)
--- NOTE | 2019-06-30 18:23 | PDOC PROGRESS REPORT ---
Subjective Progress Note for:: 06/30/19 Subjective:: Patient had another episode of hypotension. His Carvedilol, Entresto and Amiodarone are currently on hold. Patient did received Lasix at 20mg p.o x 1 dose so far today. He denied ay chest pain or difficulty with breathing. No nausea, vomiting, or abdominal pain. Reason For Visit: TANA Physical Exam Vital Signs: Temp Pulse Resp BP Pulse Ox 98.0 F 60 18 90/64 L 100 06/30/19 15:46 06/30/19 14:00 06/30/19 15:46 06/30/19 15:46 06/30/19 11:36 Intake & Output 06/29/19 06/30/19 07/01/19 06:59 06:59 06:59 Intake Total 626 946 200 Balance 626 946 200 Weight 72.1 kg 71.5 kg Physical Exam: General appearance: PRESENT: no acute distress, well-developed, well-nourished Head exam: PRESENT: atraumatic, normocephalic Eye exam: PRESENT: conjunctiva pink. ABSENT: pallor, scleral icterus Ear exam: PRESENT: normal external ear exam Mouth exam: PRESENT: moist Respiratory exam: PRESENT: clear to auscultation srikanth Cardiovascular exam: PRESENT: RRR. ABSENT: diastolic murmur, rubs, systolic murmur GI/Abdominal exam: PRESENT: normal bowel sounds, soft. ABSENT: distended, guarding, mass, organomegaly, rebound, tenderness Extremities exam: PRESENT: left AKA, right AKA Neurological exam: PRESENT: alert, awake Psychiatric exam: PRESENT: appropriate affect, normal mood. ABSENT: homicidal ideation, suicidal ideation Skin exam: PRESENT: dry, warm Results Laboratory Results: 06/30/19 08:48 06/30/19 08:48 06/30/19 06/30/19 08:48 08:48 WBC 9.4 RBC 5.41 Hgb 14.5 Hct 44.8 MCV 83 MCH 26.8 L MCHC 32.4 RDW 15.5 H Plt Count 189 Seg Neutrophils % 74.2 Sodium 137.8 Potassium 4.5 Chloride 103 Carbon Dioxide 22 Anion Gap 13 BUN 28 H Creatinine 1.61 H Est GFR ( Amer) 50 L Glucose 147 H Calcium 9.3 Total Bilirubin 0.7 AST 57 Alkaline Phosphatase 110 Total Protein 7.1 Albumin 3.5 Impressions: Chest X-Ray 06/12/19 00:00 IMPRESSION: No acute disease. Assessment & Plan - Diagnosis (1) Hypotension Qualifiers: Hypotension type: unspecified hypotension type Qualified Code(s): I95.9 - Hypotension, unspecified Is this a current diagnosis for this admission?: Yes (2) Acute kidney injury Is this a current diagnosis for this admission?: Yes (3) Chronic atrial fibrillation Is this a current diagnosis for this admission?: Yes (4) Chronic combined systolic and diastolic CHF (congestive heart failure) Is this a current diagnosis for this admission?: Yes - Time Time Spent with patient: 25-34 minutes Medications reviewed and adjusted accordingly: Yes Anticipated discharge: SNF Within: Other - Inpatient Certification Based on my medical assessment, after consideration of the patient's comorbidities, presenting symptoms, or acuity I expect that the services needed warrant INPATIENT care.: Yes I certify that my determination is in accordance with my understanding of Medicare's requirements for reasonable and necessary INPATIENT services [42 CFR 412.3e].: Yes Medical Necessity: Significant Comorbidiites Make Outpatient Treatment Too Risky, Need Close Monitoring Due to Risk of Patient Decompensation, Need For Continuous Telemetry Monitoring, Risk of Complication if Not Cared For in Hospital, Risk of Diagnosis Which Will Require Inpatient Eval/Care/Monitoring Post Hospital Care: D/C or Transfer Summary - Plan Summary Plan Summary: D/C Lasix in view of lack of clinical fluid overload and elevated BUN and creatinine. This may allow for administration of his anti CHF and arrhythmia medication administration. Continue all other current medication management. Obtain BMP in am.
[2019-06-30] MEDS: ATORVASTATIN CALCIUM 40 MG TABLET PO SCH (22:05)
[2019-07-01] MEDS: PANTOPRAZOLE SODIUM 40 MG TABLET.DR PO SCH (06:02)
[2019-07-01] MEDS: ASPIRIN 81 MG TABLET, CHEWABLE PO SCH (09:44)
[2019-07-01] MEDS: POTASSIUM CHLORIDE 10 MEQ CAPSULE.ER PO SCH (09:44)
[2019-07-01] MEDS: CARVEDILOL 3.125 MG TABLET PO SCH ×2 (09:44→21:23)
[2019-07-01] MEDS: APIXABAN 5 MG TABLET PO SCH ×2 (09:44→21:29)
[2019-07-01] MEDS: SACUBITRIL/VALSARTAN 24 MG/26 MG TABLET PO SCH ×2 (09:45→17:19)
[2019-07-01] MEDS: AMIODARONE HCL 200 MG TABLET PO SCH ×2 (09:45→17:19)
[2019-07-01 09:58] LABS: ABSOLUTE BASOPHILS # (AUTO) 0.1 10^3/uL (0.0-0.2); ABSOLUTE EOSINOPHILS # (AUTO) 0.2 10^3/uL (0.0-0.6); ABSOLUTE LYMPHOCYTES (AUTO) 1.3 10^3/uL (0.5-4.7); ABSOLUTE MONOCYTES (AUTO) 1.3 10^3/uL (0.1-1.4); ABSOLUTE NEUT (AUTO) 6.8 10^3/uL (1.7-8.2); BASOPHILS % (AUTO) 0.6 % (0-2); EOSINOPHILS % (AUTO) 1.9 % (0-6); HEMATOCRIT 43.5 % (37.9-51.0); HEMOGLOBIN 14.4 g/dL (13.5-17.0); LYMPHOCYTES % (AUTO) 13.5 % (13-45); MEAN CORPUSCULAR HEMOGLOBIN 26.9 pg (27.0-33.4); MEAN CORPUSCULAR VOLUME 82 fl (80-97); MONOCYTES % (AUTO) 13.9 % (3-13); PLATELET COUNT 212 10^3/uL (150-450); RED BLOOD COUNT 5.34 10^6/uL (4.35-5.55); RED CELL DISTRIBUTION WIDTH 15.6 % (11.5-14.0); SEGMENTED NEUTROPHILS % (AUTO) 70.1 % (42-78); TOTAL CELLS COUNTED % (AUTO) 100 %; WHITE BLOOD COUNT 9.7 10^3/uL (4.0-10.5)
[2019-07-01 10:45] LABS: ALBUMIN 3.6 g/dL (3.5-5.0); ALKALINE PHOSPHATASE 116 U/L (38-126); ANION GAP 10 (5-19); ASPARTATE AMINO TRANSFERASE 53 U/L (17-59); BILIRUBIN,DIRECT 0.4 mg/dL (0.0-0.4); BILIRUBIN,TOTAL 0.9 mg/dL (0.2-1.3); BLOOD UREA NITROGEN 30 mg/dL (7-20); CALCIUM 9.4 mg/dL (8.4-10.2); CARBON DIOXIDE 24 mmol/L (22-30); CHLORIDE 104 mmol/L (98-107); GLUCOSE 99 mg/dL (75-110); POTASSIUM 5.1 mmol/L (3.6-5.0); TOTAL PROTEIN 7.4 g/dL (6.3-8.2)
[2019-07-01] MEDS: TAMSULOSIN HCL 0.4 MG CAP.SR.24H PO SCH (17:23)
--- NOTE | 2019-07-01 19:34 | PDOC TRANSFER SUMMARY ---
Impression - Admit/DC Date/PCP Admission Date/Primary Care Provider: 06/17/19 10:13 CAYETANO RAY MD Discharge Date: 07/02/19 - Discharge Diagnosis (1) Acute kidney injury Is this a current diagnosis for this admission?: Yes (2) Chronic atrial fibrillation Is this a current diagnosis for this admission?: Yes (3) Chronic combined systolic and diastolic CHF (congestive heart failure) Is this a current diagnosis for this admission?: Yes (4) Hypotension Is this a current diagnosis for this admission?: Yes - Additional Information Referrals: [facility] [Outside] Prescriptions: Acetaminophen 500 mg PO Q6H #081087 tablet Carvedilol [Coreg 3.125 mg Tablet] 3.125 mg PO Q12 #[id number] tablet Home Medications: Amiodarone HCl [Cordarone 200 mg Tablet] 200 mg PO BID 06/11/19 Apixaban [Eliquis 5 mg Tablet] 5 mg PO Q12 06/11/19 Atorvastatin Calcium [Lipitor 40 mg Tablet] 40 mg PO QHS 06/11/19 Lansoprazole [Prevacid] 30 mg PO DAILY 06/11/19 Tamsulosin HCl [Flomax 0.4 mg Cap.sr] 0.4 mg PO QPM 06/11/19 Acetaminophen 500 mg PO Q6H #[id number] tablet 07/01/19 Carvedilol [Coreg 3.125 mg Tablet] 3.125 mg PO Q12 #[id number] tablet 07/01/19 Sacubitril/Valsartan [Entresto 24 mg/26 mg Tablet] 1 tab PO BID tablet 07/01/19 History of Present Illiness History of Present Illness: MOHAN BALLESTEROS JR is a 78 year old male, He has multiple comorbid conditions including 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 He was brought to the office by his son because of concern that it seems he is acutely ill, he has altered mental status, confusion, burning sensation on urination. He has multiple comorbid conditions essentially wheelchair-bound, he was admitted into the hospital for further evaluation of the symptoms.The initial dipstick urinalysis was negative but he has significant azotemia with serum creatinine of 1.98 suggesting acute kidney injury his baseline serum creatinine is about 1.3- 1.4 Hospital Course Hospital Course: Patient with multiple comorbid conditions he was admitted for the management of acute kidney injury with a background of chronic systolic diastolic heart failure. The blood pressure was quite low, it was very challenging to maintain patient on present pharmacotherapy including bidil, Entresto, furosemide. The acute kidney injury was felt to be due to hemodynamic factors, bidil was discontinued, he was also taken of furosemide. Patient discharge was delayed because of disposition problem, patient needed to be transferred to a group home home but the insurance was in the way, it took quite a while to resolve this problem.A 2D echocardiogram was obtained, it demonstrated an ejection fraction of left ventricle, 46% Physical Exam Vital Signs: Temp Pulse Resp BP Pulse Ox 98.2 F 61 18 82/60 L 99 07/01/19 15:14 07/01/19 15:14 07/01/19 15:14 07/01/19 15:14 07/01/19 15:14 Intake & Output 06/30/19 07/01/19 07/02/19 06:59 06:59 06:59 Intake Total 946 637 720 Output Total 1 Balance 946 636 720 Weight 71.5 kg 71.3 kg General appearance: PRESENT: no acute distress Eye exam: PRESENT: PERRLA Respiratory exam: PRESENT: clear to auscultation srikanth Cardiovascular exam: PRESENT: +S1, +S2 GI/Abdominal exam: PRESENT: soft Extremities exam: PRESENT: other - Bilateral above-knee amputation of both lower extremities Neurological exam: PRESENT: alert Results Laboratory Results: WBC 9.7 10^3/uL (4.0-10.5) 07/01/19 09:30 RBC 5.34 10^6/uL (4.35-5.55) 07/01/19 09:30 Hgb 14.4 g/dL (13.5-17.0) 07/01/19 09:30 Hct 43.5 % (37.9-51.0) 07/01/19 09:30 MCV 82 fl (80-97) 07/01/19 09:30 MCH 26.9 pg (27.0-33.4) L 07/01/19 09:30 MCHC 33.0 g/dL (32.0-36.0) 07/01/19 09:30 RDW 15.6 % (11.5-14.0) H 07/01/19 09:30 Plt Count 212 10^3/uL (150-450) 07/01/19 09:30 Lymph % (Auto) 13.5 % (13-45) 07/01/19 09:30 Blaine % (Auto) 13.9 % (3-13) H 07/01/19 09:30 Eos % (Auto) 1.9 % (0-6) 07/01/19 09:30 Baso % (Auto) 0.6 % (0-2) 07/01/19 09:30 Absolute Neuts (auto) 6.8 10^3/uL (1.7-8.2) 07/01/19 09:30 Absolute Lymphs (auto) 1.3 10^3/uL (0.5-4.7) 07/01/19 09:30 Absolute Monos (auto) 1.3 10^3/uL (0.1-1.4) 07/01/19 09:30 Absolute Eos (auto) 0.2 10^3/uL (0.0-0.6) 07/01/19 09:30 Absolute Basos (auto) 0.1 10^3/uL (0.0-0.2) 07/01/19 09:30 Seg Neutrophils % 70.1 % (42-78) 07/01/19 09:30 Sodium 138.1 mmol/L (137-145) 07/01/19 09:30 Potassium 5.1 mmol/L (3.6-5.0) H 07/01/19 09:30 Chloride 104 mmol/L (98-107) 07/01/19 09:30 Carbon Dioxide 24 mmol/L (22-30) 07/01/19 09:30 Anion Gap 10 (5-19) 07/01/19 09:30 BUN 30 mg/dL (7-20) H 07/01/19 09:30 Creatinine 1.60 mg/dL (0.52-1.25) H 07/01/19 09:30 Est GFR ( Amer) 51 (>60) L 07/01/19 09:30 Est GFR (Non-Af Amer) Cancelled 06/22/19 09:01 Est GFR (MDRD) Non-Af 42 (>60) L 07/01/19 09:30 Glucose 99 mg/dL (75-110) 07/01/19 09:30 Calcium 9.4 mg/dL (8.4-10.2) 07/01/19 09:30 Total Bilirubin 0.9 mg/dL (0.2-1.3) 07/01/19 09:30 Direct Bilirubin 0.4 mg/dL (0.0-0.4) 07/01/19 09:30 Neonat Total Bilirubin Not Reportable 07/01/19 09:30 Neonat Direct Bilirubin Not Reportable 07/01/19 09:30 Neonat Indirect Bili Not Reportable 07/01/19 09:30 AST 53 U/L (17-59) 07/01/19 09:30 ALT 225 U/L (<50) 07/01/19 09:30 Alkaline Phosphatase 116 U/L (38-126) 07/01/19 09:30 Total Protein 7.4 g/dL (6.3-8.2) 07/01/19 09:30 Albumin 3.6 g/dL (3.5-5.0) 07/01/19 09:30 EGFR Cancelled 06/22/19 09:01 Urine Color YELLOW 06/11/19 20:40 Urine Appearance CLEAR 06/11/19 20:40 Urine pH 5.0 (5.0-9.0) 06/11/19 20:40 Ur Specific Gregory 1.013 06/11/19 20:40 Urine Protein NEGATIVE mg/dL (NEGATIVE) 06/11/19 20:40 Urine Glucose (UA) NEGATIVE mg/dL (NEGATIVE) 06/11/19 20:40 Urine Ketones NEGATIVE mg/dL (NEGATIVE) 06/11/19 20:40 Urine Blood NEGATIVE (NEGATIVE) 06/11/19 20:40 Urine Nitrite NEGATIVE (NEGATIVE) 06/11/19 20:40 Urine Bilirubin NEGATIVE (NEGATIVE) 06/11/19 20:40 Urine Urobilinogen NEGATIVE mg/dL (<2.0) 06/11/19 20:40 Ur Leukocyte Esterase NEGATIVE (NEGATIVE) 06/11/19 20:40 Urine WBC (Auto) 0 /HPF 06/11/19 20:40 Urine RBC (Auto) 1 /HPF 06/11/19 20:40 U Hyaline Cast (Auto) 7 /LPF 06/11/19 20:40 Urine Mucus (Auto) RARE /LPF 06/11/19 20:40 Urine Ascorbic Acid NEGATIVE (NEGATIVE) 06/11/19 20:40 Urine Opiates Screen NEGATIVE 06/11/19 20:40 Urine Methadone Screen NEGATIVE 06/11/19 20:40 Ur Barbiturates Screen NEGATIVE 06/11/19 20:40 Ur Phencyclidine Scrn NEGATIVE 06/11/19 20:40 Ur Amphetamines Screen NEGATIVE 06/11/19 20:40 U Benzodiazepines Scrn NEGATIVE 06/11/19 20:40 Urine Cocaine Screen NEGATIVE 06/11/19 20:40 U Marijuana (THC) Screen UNCONFIRMED POSITIVE 06/11/19 20:40 Impressions: Chest X-Ray 06/12/19 00:00 IMPRESSION: No acute disease. Stroke Is this a Stroke Patient?: No Stroke Pt being discharged on Anti-thrombolytic therapy?: No Reason(s) for not prescribing Anti-thrombolytic therapy:: Not indicated Stroke Pt being discharged on Anti-coagulation therapy?: No Reason(s) for not prescribing Anti-coagulation therapy:: Not indicated Stroke Pt being discharged on Statins?: No Reason(s) for not prescribing Statins therapy:: Not indicated Acute Heart Failure - Is this a Heart Failure Patient?: Yes Documentation of LVEF assessment?: Yes LVEF < 40%?: No- if no continue to question #3 3. Anticoagulant therapy for permanect/persistent/paraoxysmal Afib or Aflutter: Yes Follow-up Appointment scheduled within 7 days?: Yes
--- NOTE | 2019-07-01 19:36 | PDOC PROGRESS REPORT ---
Subjective Progress Note for:: 07/01/19 Subjective:: Patient have a bed offer at [facility] Reason For Visit: TANA Physical Exam Vital Signs: Temp Pulse Resp BP Pulse Ox 98.2 F 61 18 82/60 L 99 07/01/19 15:14 07/01/19 15:14 07/01/19 15:14 07/01/19 15:14 07/01/19 15:14 Intake & Output 06/30/19 07/01/19 07/02/19 06:59 06:59 06:59 Intake Total 946 637 720 Output Total 1 Balance 946 636 720 Weight 71.5 kg 71.3 kg General appearance: PRESENT: no acute distress Eye exam: PRESENT: PERRLA Respiratory exam: PRESENT: clear to auscultation srikanth Cardiovascular exam: PRESENT: +S1, +S2 GI/Abdominal exam: PRESENT: soft Results Laboratory Results: 07/01/19 09:30 07/01/19 09:30 07/01/19 07/01/19 09:30 09:30 WBC 9.7 RBC 5.34 Hgb 14.4 Hct 43.5 MCV 82 MCH 26.9 L MCHC 33.0 RDW 15.6 H Plt Count 212 Seg Neutrophils % 70.1 Sodium 138.1 Potassium 5.1 H Chloride 104 Carbon Dioxide 24 Anion Gap 10 BUN 30 H Creatinine 1.60 H Est GFR ( Amer) 51 L Glucose 99 Calcium 9.4 Total Bilirubin 0.9 AST 53 Alkaline Phosphatase 116 Total Protein 7.4 Albumin 3.6 Impressions: Chest X-Ray 06/12/19 00:00 IMPRESSION: No acute disease. Assessment & Plan - Diagnosis (1) Acute kidney injury Is this a current diagnosis for this admission?: Yes (2) Chronic atrial fibrillation Is this a current diagnosis for this admission?: Yes (3) Chronic combined systolic and diastolic CHF (congestive heart failure) Is this a current diagnosis for this admission?: Yes (4) Hypotension Qualifiers: Hypotension type: unspecified hypotension type Qualified Code(s): I95.9 - Hypotension, unspecified Is this a current diagnosis for this admission?: Yes - Time Time Spent with patient: 15-24 minutes
[2019-07-01] MEDS: ATORVASTATIN CALCIUM 40 MG TABLET PO SCH (21:29)
[2019-07-02] MEDS: PANTOPRAZOLE SODIUM 40 MG TABLET.DR PO SCH (05:06)
[2019-07-02 07:37] VITALS: BP 90/57
[2019-07-02] MEDS ORDERED: INFLUENZA QUAD (6MOS+) 2019-20 VAC 0.5 ML SYR IM ONE ×2 (08:00→10:11)
[2019-07-02 09:02] LABS: ABSOLUTE EOSINOPHILS # (AUTO) 0.2 10^3/uL (0.0-0.6); ABSOLUTE LYMPHOCYTES (AUTO) 1.4 10^3/uL (0.5-4.7); ABSOLUTE MONOCYTES (AUTO) 1.3 10^3/uL (0.1-1.4); ABSOLUTE NEUT (AUTO) 5.7 10^3/uL (1.7-8.2); BASOPHILS % (AUTO) 0.5 % (0-2); EOSINOPHILS % (AUTO) 2.1 % (0-6); HEMATOCRIT 42.5 % (37.9-51.0); HEMOGLOBIN 13.8 g/dL (13.5-17.0); LYMPHOCYTES % (AUTO) 16.2 % (13-45); MEAN CORPUSCULAR HEMOGLOBIN 26.5 pg (27.0-33.4); MEAN CORPUSCULAR HGB CONC 32.4 g/dL (32.0-36.0); MEAN CORPUSCULAR VOLUME 82 fl (80-97); MONOCYTES % (AUTO) 15.1 % (3-13); PLATELET COUNT 201 10^3/uL (150-450); RED CELL DISTRIBUTION WIDTH 15.5 % (11.5-14.0); SEGMENTED NEUTROPHILS % (AUTO) 66.1 % (42-78); TOTAL CELLS COUNTED % (AUTO) 100 %; WHITE BLOOD COUNT 8.6 10^3/uL (4.0-10.5)
[2019-07-02] MEDS: ASPIRIN 81 MG TABLET, CHEWABLE PO SCH (09:20)
[2019-07-02] MEDS: APIXABAN 5 MG TABLET PO SCH (09:20)
[2019-07-02 09:23] LABS: ALBUMIN 3.4 g/dL (3.5-5.0); ALKALINE PHOSPHATASE 109 U/L (38-126); ANION GAP 9 (5-19); ASPARTATE AMINO TRANSFERASE 51 U/L (17-59); BILIRUBIN,DIRECT 0.4 mg/dL (0.0-0.4); BILIRUBIN,TOTAL 0.9 mg/dL (0.2-1.3); BLOOD UREA NITROGEN 31 mg/dL (7-20); CALCIUM 9.3 mg/dL (8.4-10.2); CARBON DIOXIDE 24 mmol/L (22-30); CHLORIDE 105 mmol/L (98-107); GLUCOSE 97 mg/dL (75-110); TOTAL PROTEIN 7.1 g/dL (6.3-8.2)
[2019-07-02] MEDS: CARVEDILOL 3.125 MG TABLET PO SCH (09:35)
[2019-07-02] MEDS: AMIODARONE HCL 200 MG TABLET PO SCH (09:35)
[2019-07-02] MEDS: SACUBITRIL/VALSARTAN 24 MG/26 MG TABLET PO SCH (09:36)
[2019-07-02] MEDS: POTASSIUM CHLORIDE 10 MEQ CAPSULE.ER PO SCH (09:36)
[2019-07-03] MEDS ORDERED: INFLUENZA QUAD (6MOS+) 2019-20 VAC 0.5 ML SYR IM ONE (08:00)
== END 2019-07-02 10:59 | DRG 683 ==
LOC: 4S 12:38 → INTOOBSV 12:38 → OBSVTOIN 06-17 10:13
PROVIDERS: ADMIT Internal Medicine; ATTEND Internal Medicine
DX: N17.9 Acute kidney failure, unspecified (principal); I48.20 Chronic atrial fibrillation, unspecified; I42.9 Cardiomyopathy, unspecified; I50.42 Chronic combined systolic (congestive) and diastolic (congestive) heart failure; I11.0 Hypertensive heart disease with heart failure; Z75.1 Person awaiting admission to adequate facility elsewhere; T46.5X5A Adverse effect of other antihypertensive drugs, initial encounter; T50.1X5A Adverse effect of loop [high-ceiling] diuretics, initial encounter; I25.9 Chronic ischemic heart disease, unspecified; E78.5 Hyperlipidemia, unspecified; I73.9 Peripheral vascular disease, unspecified; F31.9 Bipolar disorder, unspecified; F17.200 Nicotine dependence, unspecified, uncomplicated; N40.0 Benign prostatic hyperplasia without lower urinary tract symptoms; Z79.02 Long term (current) use of antithrombotics/antiplatelets; D64.9 Anemia, unspecified; I95.9 Hypotension, unspecified; Z23 Encounter for immunization; Z82.49 Family history of ischemic heart disease and other diseases of the circulatory system; Z79.82 Long term (current) use of aspirin; Z99.3 Dependence on wheelchair; Z89.612 Acquired absence of left leg above knee; I25.2 Old myocardial infarction; Z89.611 Acquired absence of right leg above knee; Z79.899 Other long term (current) drug therapy
CPT/HCPCS: 36415; 71046; 80048; 80053; 80076; 80307; 81001; 85025; 85027; 87040; 87086; 90686; 93306; G0378; J0744; J3490; J7030; J7040; J7050

== ENCOUNTER 2019-12-25 07:22 | Emergency (ER) | payer MEDICARE, MEDICAID ==
--- NOTE | 2019-12-25 07:54 | ER Document Report ---
ED General - General Chief Complaint: Chest Pain Stated Complaint: CHEST PAIN Time Seen by Provider: 12/25/19 07:53 Primary Care Provider: CAYETANO RAY MD [Primary Care Provider] - Follow up as needed Information source: Patient TRAVEL OUTSIDE OF THE [place] IN LAST 30 DAYS: No - HPI Onset: Yesterday Onset/Duration: Gradual, Intermittent Quality of pain: Throbbing Severity: Mild Context: Patient is a 79-year-old male presenting to the emergency department chief complaint of chest pain. Patient states that it began last evening and has intensified worse with movement or deep breathing or cough. Patient denies travel history trauma history any known sick contacts however patient is in a shelter. Patient is a very poor historian. Patient does present to the ER with DO NOT RESUSCITATE orders at the bedside. Associated symptoms: None Exacerbated by: Movement, Deep breathing Relieved by: Denies Similar symptoms previously: No Recently seen / treated by doctor: No - Related Data Allergies/Adverse Reactions: No Known Allergies Allergy (Verified 08/27/18 16:37) Past Medical History - General Information source: Patient, [facility] Records - Social History Smoking Status: Unknown if Ever Smoked Chew tobacco use (# tins/day): No Frequency of alcohol use: None Drug Abuse: None Lives with: Alf Family History: CAD, Hypertension Patient has suicidal ideation: No Patient has homicidal ideation: No - Past Medical History Cardiac Medical History: Reports: Hx Atrial Fibrillation, Hx Congestive Heart Failure, Hx Heart Attack, Hx Hypercholesterolemia, Hx Hypertension, Hx Peripheral Vascular Disease Renal/ Medical History: Denies: Hx Peritoneal Dialysis Psychiatric Medical History: Reports: Hx Depression Past Surgical History: Reports: Hx Cardiac Catheterization, Hx Cardiac Surgery - defib, CABGx3, Hx Coronary Artery Bypass Graft, Hx Vascular Surgery - Left AKA, Other - Status post amputation left lower extremity. Review of Systems - Review of Systems Notes: Review of systems is questionable secondary to patient being a very poor historian. Constitutional: No symptoms reported EENT: No symptoms reported Cardiovascular: See HPI Respiratory: No symptoms reported Gastrointestinal: No symptoms reported Genitourinary: No symptoms reported Male Genitourinary: No symptoms reported Musculoskeletal: No symptoms reported Skin: No symptoms reported Hematologic/Lymphatic: No symptoms reported Neurological/Psychological: No symptoms reported -: Yes All other systems reviewed and negative Physical Exam - Vital signs Vitals: Resp 17 12/25/19 07:31 - Notes Notes: PHYSICAL EXAMINATION: GENERAL: Well-appearing, well-nourished and in no acute distress. HEAD: Atraumatic, normocephalic. EYES: Pupils equal round and reactive to light, extraocular movements intact, sclera anicteric, conjunctiva are normal. ENT: nares patent, oropharynx clear without exudates. Moist mucous membranes. NECK: Normal range of motion, supple without lymphadenopathy, no appreciable JVD LUNGS: Lungs clear to auscultation bilaterally and equal. No wheezes rales or rhonchi. HEART: Regular rate and rhythm without murmurs ABDOMEN: Soft, nontender, normal bowel sounds. No guarding, no rebound. No masses appreciated. EXTREMITIES: Bilateral AKA NEUROLOGICAL: No focal neurological deficits. Moves all extremities spontaneously and on command. SKIN: Warm, Dry, and intact. Normal turgor, no rashes or lesions noted. Course - Re-evaluation Re-evalutation: 12/25/19 09:58 Patient has been maintained in the emergency department on a manager monitoring while present. Patient has been reevaluated several times while in the emergency department and no signs of decompensation have been noted. After evaluation of laboratory EKG and radiologic studies I see no signs of pneumonia, pneumothorax, acute myocardial infarction, unstable angina dissection or pulmonary embolism, there are no signs of rib fractures, no signs of acute coronary syndrome and at this time feel the patient is stable for discharge. I have discussed these results with the patient answered all questions and patient is agreeable with discharge at this time. Patient should follow-up with her primary care provider in the next several days for continued monitoring. Patient should immediately return to the emergency department for worsening symptoms to include severe chest pain/tightness or discomfort, worsening shortness of breath, fever greater than 101 or other concerning signs or symptoms. - Vital Signs Vital signs: Temp Pulse Resp BP Pulse Ox 98.2 F 16 142/89 H 98 12/25/19 08:01 12/25/19 09:01 12/25/19 09:00 12/25/19 09:01 - Laboratory Result Diagrams: 12/25/19 07:45 12/25/19 07:45 Laboratory results interpreted by me: 12/25/19 12/25/19 12/25/19 07:45 07:45 07:45 RDW 16.6 H Pickett % (Auto) 13.2 H PT ALT 70 H Creatine Kinase 40 L NT-Pro-B Natriuret Pep Albumin 3.1 L 12/25/19 12/25/19 07:45 07:45 RDW [place]ett % (Auto) PT 17.1 H ALT Creatine Kinase NT-Pro-B Natriuret Pep 451 H Albumin - Diagnostic Test Radiology reviewed: Reports reviewed - EKG Interpretation by Me Rate: Normal Rhythm: NSR [place]/QRS: Left axis deviation When compared to previous EKG there are: No significant change Discharge - Discharge Clinical Impression: Chest pain Qualifiers: Chest pain type: unspecified Qualified Code(s): R07.9 - Chest pain, unspecified Condition: Stable Disposition: SNF-Other Instructions: Chest Pain of Unclear Cause ([facility]) Referrals: CAYETANO RAY MD [Primary Care Provider] - Follow up as needed
[2019-12-25 08:00] LABS: ABSOLUTE EOSINOPHILS # (AUTO) 0.2 10^3/uL (0.0-0.6); ABSOLUTE LYMPHOCYTES (AUTO) 1.2 10^3/uL (0.5-4.7); ABSOLUTE MONOCYTES (AUTO) 1.1 10^3/uL (0.1-1.4); ABSOLUTE NEUT (AUTO) 6.1 10^3/uL (1.7-8.2); BASOPHILS % (AUTO) 0.6 % (0-2); EOSINOPHILS % (AUTO) 1.8 % (0-6); HEMATOCRIT 44.6 % (37.9-51.0); HEMOGLOBIN 14.5 g/dL (13.5-17.0); LYMPHOCYTES % (AUTO) 13.8 % (13-45); MEAN CORPUSCULAR HEMOGLOBIN 27.4 pg (27.0-33.4); MEAN CORPUSCULAR HGB CONC 32.5 g/dL (32.0-36.0); MEAN CORPUSCULAR VOLUME 84 fl (80-97); MONOCYTES % (AUTO) 13.2 % (3-13); PLATELET COUNT 196 10^3/uL (150-450); RED CELL DISTRIBUTION WIDTH 16.6 % (11.5-14.0); SEGMENTED NEUTROPHILS % (AUTO) 70.6 % (42-78); TOTAL CELLS COUNTED % (AUTO) 100 %; WHITE BLOOD COUNT 8.7 10^3/uL (4.0-10.5)
[2019-12-25 08:14] LABS: INTERNATIONAL RATION (INR) 1.38
[2019-12-25 08:15] LABS: ALBUMIN 3.1 g/dL (3.5-5.0); ALKALINE PHOSPHATASE 104 U/L (38-126); ANION GAP 8 (5-19); ASPARTATE AMINO TRANSFERASE 55 U/L (17-59); BILIRUBIN,DIRECT 0.3 mg/dL (0.0-0.4); BILIRUBIN,TOTAL 0.7 mg/dL (0.2-1.3); BLOOD UREA NITROGEN 16 mg/dL (7-20); CALCIUM 8.6 mg/dL (8.4-10.2); CARBON DIOXIDE 23 mmol/L (22-30); CHLORIDE 107 mmol/L (98-107); GLUCOSE 108 mg/dL (75-110); POTASSIUM 4.1 mmol/L (3.6-5.0); TOTAL PROTEIN 7.1 g/dL (6.3-8.2)
--- NOTE | 2019-12-25 08:18 | EKG REPORT ---
SEVERITY:- ABNORMAL ECG - ATRIAL-PACED RHYTHM BORDERLINE LEFT AXIS DEVIATION PROBABLE ANTEROSEPTAL INFARCT, AGE INDETERM BORDERLINE PROLONGED QT INTERVAL : Confirmed by: Wilder Rizzo 25-Dec-2019 08:17:52
[2019-12-25 08:19] LABS: PROTHROMBIN TIME 17.1 SEC (11.4-15.4)
--- NOTE | 2019-12-25 08:38 | RADIOLOGY REPORT (SQ) ---
EXAM DESCRIPTION: CHEST SINGLE VIEW IMAGES COMPLETED DATE/TIME: 12/25/2019 8:07 am REASON FOR STUDY: chest pain COMPARISON: 06/12/2019 EXAM PARAMETERS: NUMBER OF VIEWS: One view. TECHNIQUE: Single frontal radiographic view of the chest acquired. RADIATION DOSE: NA LIMITATIONS: None. FINDINGS: LUNGS AND PLEURA: No opacities, masses or pneumothorax. No pleural effusion. MEDIASTINUM AND HILAR STRUCTURES: Widening of the paratracheal stripe, likely vascular HEART AND VASCULAR STRUCTURES: Normal in size. Unfolded thoracic aorta. Coronary stent. BONES: No acute findings. HARDWARE: Coronary stent. Left-sided cardiac pacer/defibrillator with leads overlying right atrium a nd right ventricle. OTHER: No other significant finding. IMPRESSION: No evidence of acute cardiopulmonary process. TECHNICAL DOCUMENTATION: JOB ID: [id number] 2010 [employer]- All Rights Reserved Reading location - IP/workstation name: [email or web address]
[2019-12-25 11:23] VITALS: BP 118/78
== END 2019-12-25 11:30 ==
LOC: ER 07:22
DX: R07.9 Chest pain, unspecified (principal); I10 Essential (primary) hypertension; I25.2 Old myocardial infarction; Z95.810 Presence of automatic (implantable) cardiac defibrillator; Z95.1 Presence of aortocoronary bypass graft; Z66 Do not resuscitate; Z89.612 Acquired absence of left leg above knee; Z89.611 Acquired absence of right leg above knee
CPT/HCPCS: 36415; 71045; 80053; 82550; 83690; 83880; 84484; 85025; 85610; 93005; 93010; 99285

== ENCOUNTER 2020-02-18 04:04 | Inpatient (IN) | payer MEDICARE, MEDICAID ==
--- NOTE | 2020-02-18 06:44 | RADIOLOGY REPORT (SQ) ---
AP Portable chest: 02/18/2020 5:42 AM CDT History: 79-year old patient with hypotension. Comparison: Chest radiograph performed 12/25/2019. Findings: The cardiomediastinal silhouette is normal in size. No pneumothorax is seen. No acute airspace opacities are seen. No discrete pleural effusion is apparent. A dual-lead left-sided pacemaker/AICD is seen. Impression: No acute airspace opacities are seen.
[2020-02-18 07:05] LABS: APPEARANCE,URINE CLEAR; BILIRUBIN,URINE NEGATIVE (NEGATIVE); COLOR,URINE YELLOW; GLUCOSE, URINE NEGATIVE (NEGATIVE); KETONES,URINE NEGATIVE (NEGATIVE); LEUKOCYTE ESTERASE,URINE NEGATIVE (NEGATIVE); NITRITE,URINE NEGATIVE (NEGATIVE); PROTEIN,URINE NEGATIVE (NEGATIVE); UROBILINOGEN,URINE NEGATIVE mg/dL (<2.0)
[2020-02-18 07:19] LABS: URINE AMPHETAMINES SCREEN NEGATIVE; URINE BARBITURATES SCREEN NEGATIVE; URINE BENZODIAZEPINES SCREEN NEGATIVE; URINE COCAINE SCREEN NEGATIVE; URINE MARIJUANA (THC) SCREEN NEGATIVE; URINE METHADONE SCREEN NEGATIVE; URINE PHENCYCLIDINE SCREEN NEGATIVE
--- NOTE | 2020-02-18 07:22 | EKG REPORT ---
SEVERITY:- ABNORMAL ECG - PACEMAKER SPIKES OR ARTIFACTS LEFT BUNDLE BRANCH BLOCK DUE TO V-PACING : Confirmed by: Alex Hurtado MD 18-Feb-2020 07:21:02
--- NOTE | 2020-02-18 07:25 | ER Document Report ---
ED General <LEONIE MALDONADO - Last Filed: 02/18/20 13:30> - General TRAVEL OUTSIDE OF THE [place] IN LAST 30 DAYS: No <REGULO VILLALBA - Last Filed: 02/21/20 02:35> - General Chief Complaint: Urinary Problem Stated Complaint: URINARY ISSUES - HPI Notes: 79-year-old male history of dementia, CKD, CHF, PVD, bilateral AKA's, A. fib on Eliquis referred from [facility] for severely decreased urine output for the past few days. IRAM Shelton spoke to Danay Rodriguez who said that patient was not hypotensive at their facility. Patient unable to give additional history but denies any complaints. (REGULO VILLALBA) - Related Data Allergies/Adverse Reactions: No Known Allergies Allergy (Verified 12/25/19 11:23) Past Medical History - Social History Frequency of alcohol use: None Drug Abuse: None <LOENIE MALDONADO Anna - Last Filed: 02/18/20 13:30> - General Information source: Outside Facility Records Cannot obtain history due to: Dementia - Social History Smoking Status: Former Smoker Frequency of alcohol use: None Drug Abuse: None Family History: CAD, Hypertension Patient has homicidal ideation: No - Past Medical History Cardiac Medical History: Reports: Hx Atrial Fibrillation, Hx Congestive Heart Failure, Hx Heart Attack, Hx Hypercholesterolemia, Hx Hypertension, Hx Peripheral Vascular Disease Renal/ Medical History: Denies: Hx Peritoneal Dialysis Psychiatric Medical History: Reports: Hx Depression Past Surgical History: Reports: Hx Cardiac Catheterization, Hx Cardiac Surgery - defib, CABGx3, Hx Coronary Artery Bypass Graft, Hx Vascular Surgery - Left AKA, Other - Status post amputation left lower extremity. <REGLUO VILLALBA - Last Filed: 02/21/20 02:35> Review of Systems - Review of Systems -: Yes ROS unobtainable due to patient's medical condition <REGULO VILLALBA - Last Filed: 02/21/20 02:35> Physical Exam <REGULO VILLALBA - Last Filed: 02/21/20 02:35> - Vital signs Vitals: Temp 98.4 F 02/18/20 04:05 - Notes Notes: PHYSICAL EXAMINATION: GENERAL: Awake alert chronically ill-appearing elderly man lying in stretcher in no acute distress HEAD: Atraumatic, normocephalic. EYES: Pupils equal round and appropriate constriction, sclera anicteric, conjunctiva are normal. ENT: nares patent, moist mucous membranes. NECK: Normal range of motion, supple without lymphadenopathy, no JVD LUNGS: Breath sounds clear to auscultation bilaterally and equal. No wheezes rales or rhonchi. Normal work of breathing HEART: Regular rate and rhythm without murmurs ABDOMEN: Soft, nontender, no guarding, no masses, no CVAT. Wearing diaper, normal external genitalia. BACK: No C/T/L/spinal tenderness, no decubitus ulcers EXTREMITIES: Lateral healed AKAs with skin intact, normal range of motion, no pitting or edema. No cyanosis. NEUROLOGICAL: Awake, alert, conversing appropriately for history of dementia, moves all extremities spontaneously. PSYCH: Normal mood, normal affect. SKIN: Warm, Dry, normal turgor, no rashes or lesions noted. (REGULO VILLALBA) Course - Laboratory Result Diagrams: 02/18/20 07:33 02/18/20 07:33 <LEONIE MALDONADO - Last Filed: 02/18/20 13:30> - Laboratory Result Diagrams: 02/20/20 05:11 02/20/20 05:11 <REGULO VILLALBA - Last Filed: 02/21/20 02:35> - Re-evaluation Re-evalutation: 02/18/20 07:28 Patient sent for oliguria, found to be hypotensive and the rate by EMS. Patient appears to be at his baseline on exam, no obvious sources of sepsis, patient without any visible signs of discomfort and denies any symptoms. Rule out se psis, COVID, ACS, hyperkalemia/electrolyte abnormalities, acute renal failure. Patient turned over to Dr. Maldonado. (REGULO VILLALBA) - Vital Signs Vital signs: Temp Pulse Resp BP Pulse Ox 98.9 F 68 22 H 110/60 92 02/20/20 23:42 02/20/20 23:42 02/20/20 23:42 02/20/20 23:42 02/20/20 23:42 - Laboratory Laboratory results interpreted by me: 02/18/20 02/18/20 02/18/20 05:30 07:33 07:33 WBC 10.6 H RDW 17.4 H Lymph % (Auto) 6.5 L Absolute Neuts (auto) 9.1 H Seg Neutrophils % 85.4 H PT APTT VBG pH VBG HCO3 Sodium 130.1 L Potassium 6.3 H* Chloride 97 L Carbon Dioxide 15 L BUN 87 H Creatinine 11.95 H Est GFR ( Amer) 5 L Est GFR (MDRD) Non-Af 4 L Calcium 7.5 L Magnesium 2.9 H Total Bilirubin 2.2 H Direct Bilirubin 1.9 H AST 155 H ALT 86 H Creatine Kinase 187 H NT-Pro-B Natriuret Pep Albumin 3.2 L TSH Free T4 Urine Blood LARGE H 02/18/20 02/18/20 02/18/20 07:33 07:33 07:33 WBC RDW Lymph % (Auto) Absolute Neuts (auto) Seg Neutrophils % PT 23.4 H APTT 39.1 H VBG pH 7.23 L VBG HCO3 17.2 L Sodium Potassium Chloride Carbon Dioxide BUN Creatinine Est GFR ( Amer) Est GFR (MDRD) Non-Af Calcium Magnesium Total Bilirubin Direct Bilirubin AST ALT Creatine Kinase NT-Pro-B Natriuret Pep Albumin TSH < 0.01 L Free T4 Urine Blood 02/18/20 02/18/20 07:33 07:33 WBC RDW Lymph % (Auto) Absolute Neuts (auto) Seg Neutrophils % PT APTT VBG pH VBG HCO3 Sodium Potassium Chloride Carbon Dioxide BUN Creatinine Est GFR ( Amer) Est GFR (MDRD) Non-Af Calcium Magnesium Total Bilirubin Direct Bilirubin AST ALT Creatine Kinase NT-Pro-B Natriuret Pep 2760 H Albumin TSH < 0.01 L Free T4 5.66 H Urine Blood - EKG Interpretation by Me Additional EKG results interpreted by me: 02/18/20 05:00 HR 139, pacer spiked present, regular tachycardia, QTc 526 (REGULO VILLALBA) Critical Care Note - Critical Care Note Total time excluding time spent on procedures (mins): 32 <LEONIE MALDONADO - Last Filed: 02/18/20 13:30> - Critical Care Note Comments: The above patient is critically ill. Not including procedures, but including direct re-evaluations, speaking with patient and/or consultants, interpreting results, and documenting, I spent the total amount of minute listed listed above on critical care time (LEONIE MALDONADO) Discharge <LEONIE MALDONADO - Last Filed: 02/18/20 13:30> <REGULO VILLALBA - Last Filed: 02/21/20 02:35> - Discharge Clinical Impression: Hyperkalemia Condition: Critical Disposition: ADMITTED INPATIENT
[2020-02-18 07:45] LABS: ABSOLUTE LYMPHOCYTES (AUTO) 0.7 10^3/uL (0.5-4.7); ABSOLUTE MONOCYTES (AUTO) 0.8 10^3/uL (0.1-1.4); ABSOLUTE NEUT (AUTO) 9.1 10^3/uL (1.7-8.2); BASOPHILS % (AUTO) 0.2 % (0-2); EOSINOPHILS % (AUTO) 0.2 % (0-6); HEMATOCRIT 44.9 % (37.9-51.0); HEMOGLOBIN 15.3 g/dL (13.5-17.0); LYMPHOCYTES % (AUTO) 6.5 % (13-45); MEAN CORPUSCULAR HEMOGLOBIN 27.5 pg (27.0-33.4); MEAN CORPUSCULAR VOLUME 81 fl (80-97); MONOCYTES % (AUTO) 7.7 % (3-13); PLATELET COUNT 190 10^3/uL (150-450); RED BLOOD COUNT 5.54 10^6/uL (4.35-5.55); RED CELL DISTRIBUTION WIDTH 17.4 % (11.5-14.0); SEGMENTED NEUTROPHILS % (AUTO) 85.4 % (42-78); TOTAL CELLS COUNTED % (AUTO) 100 %; WHITE BLOOD COUNT 10.6 10^3/uL (4.0-10.5)
[2020-02-18 07:54] LABS: VENOUS BLOOD BASE EXCESS -9.8 mmol/L; VENOUS BLOOD HCO3 17.2 mmol/L (20-32); VENOUS BLOOD PCO2 41.6 mmHg (35-63); VENOUS BLOOD PH 7.23 (7.30-7.42)
[2020-02-18 07:59] LABS: INTERNATIONAL RATION (INR) 2.04; PROTHROMBIN TIME 23.4 SEC (11.4-15.4)
[2020-02-18 08:00] LABS: PARTIAL THROMBOPLASTIN TIME 39.1 SEC (23.5-35.8)
[2020-02-18 08:05] LABS: ALBUMIN 3.2 g/dL (3.5-5.0); ALKALINE PHOSPHATASE 124 U/L (38-126); ANION GAP 18 (5-19); ASPARTATE AMINO TRANSFERASE 155 U/L (17-59); BILIRUBIN,DIRECT 1.9 mg/dL (0.0-0.4); BILIRUBIN,TOTAL 2.2 mg/dL (0.2-1.3); BLOOD UREA NITROGEN 87 mg/dL (7-20); CALCIUM 7.5 mg/dL (8.4-10.2); CARBON DIOXIDE 15 mmol/L (22-30); CHLORIDE 97 mmol/L (98-107); CREATINE KINASE 187 U/L (55-170); GLUCOSE 98 mg/dL (75-110); TOTAL PROTEIN 7.2 g/dL (6.3-8.2)
[2020-02-18 08:09] LABS: POTASSIUM 6.3 mmol/L (3.6-5.0)
[2020-02-18] MEDS ORDERED: INSULIN REG, HUMAN 100 UNIT/ML 3 ML VIAL (PYX) IV ONE (08:11)
[2020-02-18] MEDS ORDERED: SODIUM BICARBONATE 8.4% INJ 50 MEQ/50 ML DISP.SYRIN IV ONE (08:11)
[2020-02-18] MEDS ORDERED: FUROSEMIDE INJ/PF 40 MG/4 ML SDV IV ONE (08:11)
[2020-02-18] MEDS ORDERED: DEXTROSE 50%-WATER 25 GM/50 ML DISP.SYRIN IV ONE (08:11)
[2020-02-18] MEDS ORDERED: ALBUTEROL SULFATE 0.083% NEB 2.5 MG/3 ML AMPUL NEB ONE (08:11)
--- NOTE | 2020-02-18 09:09 | ER Document Report ---
ED General - General Chief Complaint: Urinary Problem Stated Complaint: URINARY ISSUES Notes: 79-year-old male with a history of TANA. Patient is DNR. Patient presents with decreased urine output and altered mental status. No other info is available Labs were started by previous physician. The patient complains of being cold only to me and has no other complaints. He is quite frail. Pineda was inserted prior to my evaluation and 10 cc of urine came out. Perhaps 20. TRAVEL OUTSIDE OF THE [place] IN LAST 30 DAYS: No - Related Data Allergies/Adverse Reactions: No Known Allergies Allergy (Verified 12/25/19 11:23) Past Medical History - General Information source: Outside Facility Records - Social History Smoking Status: Former Smoker Frequency of alcohol use: None Drug Abuse: None Family History: CAD, Hypertension Patient has homicidal ideation: No - Past Medical History Cardiac Medical History: Reports: Hx Atrial Fibrillation, Hx Congestive Heart Failure, Hx Heart Attack, Hx Hypercholesterolemia, Hx Hypertension, Hx Peripheral Vascular Disease Renal/ Medical History: Denies: Hx Peritoneal Dialysis Psychiatric Medical History: Reports: Hx Depression Past Surgical History: Reports: Hx Cardiac Catheterization, Hx Cardiac Surgery - defib, CABGx3, Hx Coronary Artery Bypass Graft, Hx Vascular Surgery - Left AKA, Other - Status post amputation left lower extremity. Review of Systems - Review of Systems Notes: REVIEW OF SYSTEMS PHYSICAL EXAMINATION General: No acute distress, well-nourished Head: Atraumatic, normocephalic ENT: Mouth normal, oropharynx moist, no exudates or tonsillar enlargement Eyes: Conjunctiva normal, pupils equal, lids normal Neck: No JVD, supple, no guarding CVS: Normal rate, regular rhythm, no murmurs Resp: No resp distress, equal and normal breath sounds bilaterally GI: Nondistended, soft, no tenderness to palpation, no rebound or guarding Ext: No deformities, no edema, normal range of motion in upper and lower ext Back: No CVA or midline TTP Skin: No rash, warm Lymphatic: No lymphadeopathy noted Neuro: Awake, alert. Face symmetric. GCS 15. -: Yes ROS unobtainable due to patient's medical condition Physical Exam - Vital signs Vitals: Temp 98.4 F 02/18/20 04:05 Course - Re-evaluation Re-evalutation: 02/18/20 09:37 Patient presents with acute kidney injury and uremia Unlikely postobstructive although there was no post void residual done the Pineda put out less than 50 cc. He has some signs of dehydration. His potassium is critically elevated. EKG is a paced rhythm difficult to tell if there is ST changes. Initially wrote for insulin glucose Lasix sodium bicarb and albuterol. Attended to call Dr. Molina 3 times. Bumped it up to charge nurse she was finally able to get a hold of him in around 9:15 AM. He accepted the admission, I had already spoken with Dr. Hall who agreed to dialyze the patient if needed. I was called to the bedside at 930 as the patient became hypotensive. He has no complaints. He was initially slightly hypothermic but did not meet Sirs criteria with his low temperature, and has no source of infection based on physical examination or lab evaluation. I am going to treat his potassium slightly more aggressively with calcium and give him a fluid bolus and see how he does. Change bed to IM. Will contact Tracy again. 02/18/20 13:30 Hypotension resolved. - Vital Signs Vital signs: Temp Pulse Resp BP Pulse Ox 97.2 F 16 105/79 97 02/18/20 13:12 02/18/20 12:42 02/18/20 12:42 02/18/20 13:12 - Laboratory Result Diagrams: 02/18/20 07:33 02/18/20 07:33 Laboratory results interpreted by me: 02/18/20 02/18/20 02/18/20 05:30 07:33 07:33 WBC 10.6 H RDW 17.4 H Lymph % (Auto) 6.5 L Absolute Neuts (auto) 9.1 H Seg Neutrophils % 85.4 H PT APTT VBG pH VBG HCO3 Sodium 130.1 L Potassium 6.3 H* Chloride 97 L Carbon Dioxide 15 L BUN 87 H Creatinine 11.95 H Est GFR ( Amer) 5 L Est GFR (MDRD) Non-Af 4 L Calcium 7.5 L Magnesium 2.9 H Total Bilirubin 2.2 H Direct Bilirubin 1.9 H AST 155 H ALT 86 H Creatine Kinase 187 H NT-Pro-B Natriuret Pep Albumin 3.2 L TSH Urine Blood LARGE H 02/18/20 02/18/20 02/18/20 07:33 07:33 07:33 WBC RDW Lymph % (Auto) Absolute Neuts (auto) Seg Neutrophils % PT 23.4 H APTT 39.1 H VBG pH 7.23 L VBG HCO3 17.2 L Sodium Potassium Chloride Carbon Dioxide BUN Creatinine Est GFR ( Amer) Est GFR (MDRD) Non-Af Calcium Magnesium Total Bilirubin Direct Bilirubin AST ALT Creatine Kinase NT-Pro-B Natriuret Pep Albumin TSH < 0.01 L Urine Blood 02/18/20 07:33 WBC RDW Lymph % (Auto) Absolute Neuts (auto) Seg Neutrophils % PT APTT VBG pH VBG HCO3 Sodium Potassium Chloride Carbon Dioxide BUN Creatinine Est GFR ( Amer) Est GFR (MDRD) Non-Af Calcium Magnesium Total Bilirubin Direct Bilirubin AST ALT Creatine Kinase NT-Pro-B Natriuret Pep 2760 H Albumin TSH Urine Blood - Diagnostic Test Radiology reviewed: Image reviewed, Reports reviewed - EKG Interpretation by Me EKG shows normal: Sinus rhythm Rate: Normal - Paced Critical Care Note - Critical Care Note Total time excluding time spent on procedures (mins): 71 Comments: The above patient is critically ill. Not including procedures, but including direct re-evaluations, speaking with patient and/or consultants, interpreting results, and documenting, I spent the total amount of minute listed listed above on critical care time Discharge - Discharge Clinical Impression: Hyperkalemia Condition: Critical Disposition: ADMITTED INPATIENT Admitting Provider: [facility] Admitted: [facility]
[2020-02-18] MEDS ORDERED: CALCIUM GLUCONATE 1000 MG/10 ML INJ IV ONE ×2 (09:19→09:27)
[2020-02-18] MEDS ORDERED: NORMAL SALINE 1000 ML 1,000 ML IV ONE (09:26)
[2020-02-18] MEDS ORDERED: SODIUM POLYSTYRENE SULFONATE 15 GM/60 ML PO ONE (09:35)
--- NOTE | 2020-02-18 11:25 | PDOC CONSULTATION ---
Consultation Consult Date: 02/18/20 Provider Consulted: Jennifer ARCHIBALD Consult reason:: TANA History of Present Illness Admission Date/PCP: 02/18/20 09:27 CAYETANO RAY MD History of Present Illness: MOHAN BALLESTEROS JR is a 79 year old male with a history of dementia, CKD, PVD, bilateral above the knee amputations, and a-fib on elquis with a pacemaker was transferred to the ER from a SNF. He was sent for decreased urination over the past few days. In the ER he was found to be hypotensive, he had a slight hypothemia. Labs were drawn that showed a creatinine of 11.95, potassium of 6.3, bicarb of 15, calcium of 7.5, mag of 2.9, and a slight white count of 10.6. He was give 1L of normal saline, calcium gluconate, sodium bicarb, insulin w/d50 and furosemide. He was worked up for possible sepsis for which he did not meet the criteria and no source of an infection could be found. A cortez was placed with little to almost no urine output. Unfortunately the patient was not able to help much with his history. According to him he has been drinking water some but not eating much. He has had a decreased appetite that he claims has been going on for one week. He denies any n/v/d/c. He denies fevers or chills. In fact he claims to actually feel cold. Once again history from him was questionable due to some confusion during our conversation. Past Medical History Cardiac Medical History: Reports: Atrial Fibrillation, Hyperlipidemia, Myocardia l Infarction, Peripheral Vascular Disease Psychiatric Medical History: Reports: Depression Past Surgical History Past Surgical History: Reports: Cardiac Catheterization, Coronary Artery Bypass Graft, Vascular Surgery - Left AKA, Other - Status post amputation left lower extremity. Social History Smoking Status: Former Smoker Frequency of Alcohol Use: Occasional Hx Recreational Drug Use: Yes Drugs: Marijuana Hx Prescription Drug Abuse: No Family History Parental Family History Reviewed: No Children Family History Reviewed: Unknown Sibling(s) Family History Reviewed.: Unknown Medication/Allergy Home Medications: Amiodarone HCl [Cordarone 200 mg Tablet] 200 mg PO BID 06/11/19 Apixaban [Eliquis 5 mg Tablet] 5 mg PO Q12 06/11/19 Atorvastatin Calcium [Lipitor 40 mg Tablet] 40 mg PO QHS 06/11/19 Lansoprazole [Prevacid] 30 mg PO DAILY 06/11/19 Tamsulosin HCl [Flomax 0.4 mg Cap.sr] 0.4 mg PO QPM 06/11/19 Acetaminophen 500 mg PO Q6H #[id number] tablet 07/01/19 Carvedilol [Coreg 3.125 mg Tablet] 3.125 mg PO Q12 #[id number] tablet 07/01/19 Sacubitril/Valsartan [Entresto 24 mg/26 mg Tablet] 1 tab PO BID tablet 07/01/19 Allergies/Adverse Reactions: No Known Allergies Allergy (Verified 12/25/19 11:23) Review of Systems Constitutional: PRESENT: chills. ABSENT: fatigue, fever(s), weakness Eyes: ABSENT: visual disturbances Cardiovascular: ABSENT: chest pain, dyspnea on exertion, edema, orthropnea Gastrointestinal: ABSENT: abdominal pain, constipation, diarrhea, nausea, vomiting Genitourinary: PRESENT: difficulty urinating, other - -decreased urine output. ABSENT: dysuria Musculoskeletal: ABSENT: muscle weakness Neurological: PRESENT: confusion, numbness. ABSENT: dizziness, weakness Physical Exam Vital Signs: Temp Pulse Resp BP Pulse Ox 96.9 F L 16 88/57 L 100 02/18/20 09:23 02/18/20 08:41 02/18/20 09:23 02/18/20 09:23 Intake & Output 02/17/20 02/18/20 02/19/20 06:59 06:59 06:59 Weight 66 kg General appearance: PRESENT: no acute distress, well-developed, well-nourished Mouth exam: PRESENT: dry mucosa, neck supple. ABSENT: moist Neck exam: ABSENT: JVD, tracheal deviation Respiratory exam: PRESENT: clear to auscultation srikanth. ABSENT: accessory muscle use, chest wall tenderness, crackles, rhonchi, wheezes Cardiovascular exam: PRESENT: +S1, +S2 GI/Abdominal exam: PRESENT: soft. ABSENT: tenderness Extremities exam: PRESENT: other - -bilaterial AKA. ABSENT: pedal edema, +1 edema, +2 edema Musculoskeletal exam: PRESENT: deformity - -bilaterial AKA. ABSENT: normal inspection Neurological exam: PRESENT: alert, awake, oriented to person, oriented to place Psychiatric exam: PRESENT: appropriate affect, normal mood Skin exam: PRESENT: dry, intact, warm. ABSENT: cyanosis Results Laboratory Results: 02/18/20 07:33 02/18/20 07:33 02/18/20 02/18/20 02/18/20 05:30 07:33 07:33 WBC 10.6 H RBC 5.54 Hgb 15.3 Hct 44.9 MCV 81 MCH 27.5 MCHC 34.0 RDW 17.4 H Plt Count 190 Seg Neutrophils % 85.4 H VBG pH VBG pCO2 VBG HCO3 VBG Base Excess Sodium 130.1 L Potassium 6.3 H* Chloride 97 L Carbon Dioxide 15 L Anion Gap 18 BUN 87 H Creatinine 11.95 H Est GFR ( Amer) 5 L Glucose 98 Lactic Acid Calcium 7.5 L Magnesium 2.9 H Total Bilirubin 2.2 H AST 155 H Alkaline Phosphatase 124 Total Protein 7.2 Albumin 3.2 L TSH Urine Color YELLOW Urine Appearance CLEAR Urine pH 5.0 Ur Specific [place] 1.010 Urine Protein NEGATIVE Urine Glucose (UA) NEGATIVE Urine Ketones NEGATIVE Urine Blood LARGE H Urine Nitrite NEGATIVE Ur Leukocyte Esterase NEGATIVE Urine WBC (Auto) 5 Urine RBC (Auto) >182 Blood Type Antibody Screen 02/18/20 02/18/20 02/18/20 07:33 07:33 07:33 WBC RBC Hgb Hct MCV MCH MCHC RDW Plt Count Seg Neutrophils % VBG pH 7.23 L VBG pCO2 41.6 VBG HCO3 17.2 L VBG Base Excess -9.8 Sodium Potassium Chloride Carbon Dioxide Anion Gap BUN Creatinine Est GFR ( Amer) Glucose Lactic Acid 0.9 Calcium Magnesium Total Bilirubin AST Alkaline Phosphatase Total Protein Albumin TSH < 0.01 L Urine Color Urine Appearance Urine pH Ur Specific [place] Urine Protein Urine Glucose (UA) Urine Ketones Urine Blood Urine Nitrite Ur Leukocyte Esterase Urine WBC (Auto) Urine RBC (Auto) Blood Type Antibody Screen 02/18/20 07:53 WBC RBC Hgb Hct MCV MCH MCHC RDW Plt Count Seg Neutrophils % VBG pH VBG pCO2 VBG HCO3 VBG Base Excess Sodium Potassium Chloride Carbon Dioxide Anion Gap BUN Creatinine Est GFR ( Amer) Glucose Lactic Acid Calcium Magnesium Total Bilirubin AST Alkaline Phosphatase Total Protein Albumin TSH Urine Color Urine Appearance Urine pH Ur Specific [place] Urine Protein Urine Glucose (UA) Urine Ketones Urine Blood Urine Nitrite Ur Leukocyte Esterase Urine WBC (Auto) Urine RBC (Auto) Blood Type O POSITIVE Antibody Screen NEGATIVE 02/18/20 02/18/20 07:33 07:33 Creatine Kinase 187 H Troponin I 0.032 Assessment & Plan - Diagnosis (1) Acute kidney injury Plan: Currently oliguric, looks to be due to dehydration and hypotension. He looks to be very clinically dry. Continue with the cortez catheter at this time. Starting normal saline at 150mL an hour, starting PO sodium bicarb, placing on a renal diet. Will look to get a renal ultrasound. Will follow up with labs. At this time no indication for [employer]. Has slight uremia with the decreased appetite. No asterixis was seen or pericardial friction rub heard. Will reassess potassium today. (2) Hyperkalemia Plan: No EKG changes seem. Elevated potassium is likely due to dehydration and TANA. Will look to start on normal saline at 150mL an hour and give a dose of kayex elate with how high the potassium is. Follow up around 1400 to retest the potassium. Patient will need to be on a renal diet. (3) Hypotension Qualifiers: Hypotension type: unspecified hypotension type Qualified Code(s): I95.9 - H ypotension, unspecified Plan: likely due to dehydration. Less likely sepsis as he only had a slight white count. Lactic acid was WNL, he has no fever, heart rate is normal, respirations are normal and there does not appear to be a source of infection. Started on normal saline at 150mL an hour. He needs to have all bp medications held and no diuretics. (4) Hypocalcemia Plan: Albumin is low at 3.2, likely lower once he has been rehydrated. Will get a ionized calcium to confirm where his calcium level is. He has already received 1g of calcium gluconated. (5) Metabolic acidosis Plan: Patient already received and amp of bicarb. Will start him on PO bicarb and follow up with labs. (6) Congestive heart failure Qualifiers: Heart failure type: unspecified Heart failure chronicity: unspecified Qualified Code(s): I50.9 - Heart failure, unspecified Plan: stable (7) Hypertension Qualifiers: Hypertension type: essential hypertension Qualified Code(s): I10 - Essential (primary) hypertension Plan: all bp medications to be held.
--- NOTE | 2020-02-18 11:58 | RADIOLOGY REPORT (SQ) ---
EXAM DESCRIPTION: U/S RETROPERITON (RENAL/AORTA) IMAGES COMPLETED DATE/TIME: 02/18/2020 11:45 am REASON FOR STUDY: TANA COMPARISON: CT of the abdomen and pelvis with contrast from 12/12/2018. TECHNIQUE: Dynamic and static grayscale images acquired of the kidneys and bladder and recorded on P ACS. Additional selected color Doppler and spectral images recorded. LIMITATIONS: None. FINDINGS: RIGHT KIDNEY: The right kidney measures 11 cm in length. The corticomedullary differentia tion is preserved. There is no hydronephrosis, calcification or mass. LEFT KIDNEY: The left kidney measures 8.9 cm in length. The corticomedullary differentiation is pre served. There are several renal cyst that measure up to 4.5 x 4.5 x 3.8 cm BLADDER: The urinary bladder is contracted and there is a Pineda catheter in place. OTHER FINDINGS: No other finding. IMPRESSION: 1. No hydronephrosis. 2. Left-sided renal cysts that measure up to 4.5 x 4.5 x 3.8 cm. 3. Pineda catheter within the contracted urinary bladder. TECHNICAL DOCUMENTATION: JOB ID: [id number] 2010 [employer]- All Rights Reserved Reading location - IP/workstation name: [email or web address]
[2020-02-18 13:26] LABS: FREE T4 (FREE THYROXINE) 5.66 ng/dL (0.78-2.19)
[2020-02-18 13:42] LABS: THYROID STIMULATING HORMONE < 0.01 uIU/mL (0.47-4.68)
[2020-02-18 14:31] LABS: HEMATOCRIT 41.5 % (37.9-51.0); HEMOGLOBIN 13.8 g/dL (13.5-17.0); MEAN CORPUSCULAR HEMOGLOBIN 26.7 pg (27.0-33.4); MEAN CORPUSCULAR HGB CONC 33.3 g/dL (32.0-36.0); MEAN CORPUSCULAR VOLUME 80 fl (80-97); PLATELET COUNT 175 10^3/uL (150-450); RED BLOOD COUNT 5.19 10^6/uL (4.35-5.55); RED CELL DISTRIBUTION WIDTH 17.3 % (11.5-14.0); WHITE BLOOD COUNT 11.1 10^3/uL (4.0-10.5)
[2020-02-18 15:03] LABS: ARTERIAL BLOOD BASE EXCESS -7.7 mmol/L; ARTERIAL BLOOD FIO2 21%; ARTERIAL BLOOD H2CO3 0.94 mmol/L (1.05-1.35); ARTERIAL BLOOD HCO3 16.7 mmol/L (20-24); ARTERIAL BLOOD O2 SATURATION 93.6 % (94-98); ARTERIAL BLOOD PCO2 31.2 mmHg (35-45); ARTERIAL BLOOD PH 7.35 (7.35-7.45); ARTERIAL BLOOD PO2 70.6 mmHg (80-100); ARTERIAL BLOOD TOTAL CO2 17.6 mmol/L (23-27)
[2020-02-18 15:03] LABS: APPEARANCE,URINE SLIGHTLY-CLOUDY; BILIRUBIN,URINE NEGATIVE (NEGATIVE); COLOR,URINE YELLOW; GLUCOSE, URINE NEGATIVE (NEGATIVE); KETONES,URINE NEGATIVE (NEGATIVE); LEUKOCYTE ESTERASE,URINE TRACE (NEGATIVE); NITRITE,URINE NEGATIVE (NEGATIVE); PROTEIN,URINE 30 mg/dL (NEGATIVE); URINE SPECIFIC GRAVITY 1.009; UROBILINOGEN,URINE NEGATIVE mg/dL (<2.0)
[2020-02-18 15:08] LABS: CREATINE KINASE MB 1.63 ng/mL (<4.55); TROPONIN I 0.028 ng/mL
[2020-02-18] MEDS: NORMAL SALINE 1000 ML 1,000 ML IV PRN ×2 (15:10→22:02)
[2020-02-18] MEDS: DEXTROSE 5%-WATER 1000 ML 1,000 ML with SODIUM BICARBONATE 150 MEQ IV PRN ×2 (15:11)
[2020-02-18] MEDS: AMPICILLIN SODIUM/SULBACTAM NA 1.5 GM in NORMAL SALINE 50 ML IV SCH (15:11)
[2020-02-18 15:21] LABS: URINE AMPHETAMINES SCREEN NEGATIVE; URINE BARBITURATES SCREEN NEGATIVE; URINE BENZODIAZEPINES SCREEN NEGATIVE; URINE COCAINE SCREEN NEGATIVE; URINE MARIJUANA (THC) SCREEN NEGATIVE; URINE METHADONE SCREEN NEGATIVE; URINE PHENCYCLIDINE SCREEN NEGATIVE
[2020-02-18 15:29] LABS: ANION GAP 17 (5-19); BLOOD UREA NITROGEN 88 mg/dL (7-20); CALCIUM 7.3 mg/dL (8.4-10.2); CARBON DIOXIDE 16 mmol/L (22-30); CHLORIDE 98 mmol/L (98-107); GLUCOSE 96 mg/dL (75-110)
[2020-02-18 15:33] LABS: POTASSIUM 6.6 mmol/L (3.6-5.0)
[2020-02-18 18:24] LABS: ANION GAP 13 (5-19); BLOOD UREA NITROGEN 87 mg/dL (7-20); CALCIUM 7.2 mg/dL (8.4-10.2); CARBON DIOXIDE 20 mmol/L (22-30); CHLORIDE 101 mmol/L (98-107); GLUCOSE 114 mg/dL (75-110)
[2020-02-18 18:42] LABS: POTASSIUM 5.1 mmol/L (3.6-5.0)
--- NOTE | 2020-02-18 21:27 | PDOC H&P ---
History of Present Illness Admission Date/PCP: 02/18/20 09:27 CAYETANO RAY MD History of Present Illness: MOHAN BALLESTEROS JR is a 79 year old male, He has a history of chronic systolic and diastolic heart failure, chronic kidney disease stage III, peripheral vascular disease status post bilateral [id number] amputation, a DNR status resident of the long-term he was transferred from the long-term to the hospital for evaluation because of altered mental status and diminished urinary output. The blood work done in the ER revealed acute kidney injury, BUN was 87, creatinine 11.9, bicarbonate is 15, no history could be obtained from patient. Past Medical History Cardiac Medical History: Reports: Atrial Fibrillation, Congestive Heart Failure, Myocardial Infarction, Hyperlipidema, Hypertension, Peripheral Vascular Disease Psychiatric Medical History: Reports: Depression Past Surgical History Past Surgical History: Reports: Cardiac Catheterization, Coronary Artery Bypass Graft, Vascular Surgery - Left AKA, Other - Status post amputation left lower extremity. Social History Smoking Status: Former Smoker Electronic Cigarette use?: No Frequency of Alcohol Use: None Hx Recreational Drug Use: No Drugs: None Hx Prescription Drug Abuse: No - Advance Directive Resuscitation Status: Do Not Resuscitate Family History Family History: CAD, Hypertension Parental Family History Reviewed: Yes Children Family History Reviewed: Yes Sibling(s) Family History Reviewed.: Yes Medication/Allergy Home Medications: Amiodarone HCl [Cordarone 200 mg Tablet] 200 mg PO BID 06/11/19 Apixaban [Eliquis 5 mg Tablet] 5 mg PO Q12 06/11/19 Atorvastatin Calcium [Lipitor 40 mg Tablet] 40 mg PO QHS 06/11/19 Lansoprazole [Prevacid] 30 mg PO DAILY 06/11/19 Tamsulosin HCl [Flomax 0.4 mg Cap.sr] 0.4 mg PO QPM 06/11/19 Carvedilol [Coreg 3.125 mg Tablet] 3.125 mg PO Q12 #[id number] tablet 07/01/19 Sacubitril/Valsartan [Entresto 24 mg/26 mg Tablet] 1 tab PO BID tablet 07/01/19 Acetaminophen 500 mg PO Q6HP PRN 02/18/20 Bisacodyl [Dulcolax 10 mg Supp.rect] 10 mg IA Q36H PRN 02/18/20 Carboxymethylcellulose Sodium [Refresh Tears] 1 drop OP QID 02/18/20 Magnesium Hydroxide [Milk of Magnesia 30 ml Udcup] 30 ml PO Q36H PRN 02/18/20 Nitroglycerin [Nitrostat 0.4 mg (1/150 Gr) Tabs 25/Bottle] 1 tab SL Q5MP PRN 02/18/20 Promethazine HCl [Phenergan Inj 25 mg/1 ml Vial] 25 mg IM Q4HP PRN 02/18/20 Sennosides/Docusate Sodium [Senna-S 8.6-50 mg Tablet] 1 each PO QHS 02/18/20 Tramadol HCl [Ultram 50 mg Tablet] 50 mg PO Q8HP PRN 02/18/20 Allergies/Adverse Reactions: No Known Allergies Allergy (Verified 12/25/19 11:23) Review of Systems ROS unobtainable: Due to mental status, Other - confused Physical Exam Vital Signs: Temp Pulse Resp BP Pulse Ox 97.2 F 60 18 95/55 L 99 02/18/20 13:53 02/18/20 14:05 02/18/20 13:53 02/18/20 13:53 02/18/20 13:53 Intake & Output 02/17/20 02/18/20 02/19/20 06:59 06:59 06:59 Intake Total 1050 Balance 1050 Weight 66 kg General appearance: PRESENT: no acute distress Head exam: PRESENT: atraumatic, normocephalic Eye exam: PRESENT: PERRLA Mouth exam: PRESENT: moist, tongue midline Respiratory exam: PRESENT: clear to auscultation srikanth Cardiovascular exam: PRESENT: RRR, +S1, +S2 Pulses: PRESENT: normal dorsalis pedis pul, +2 pedal pulses bilateral Vascular exam: PRESENT: normal capillary refill GI/Abdominal exam: PRESENT: normal bowel sounds, soft Rectal exam: PRESENT: deferred Extremities exam: PRESENT: left AKA, right BKA Neurological exam: PRESENT: alert, CN II-XII grossly intact Psychiatric exam: PRESENT: appropriate affect, normal mood Skin exam: PRESENT: dry, intact, warm Results Laboratory Results: 02/18/20 14:19 02/18/20 17:27 02/18/20 02/18/20 02/18/20 05:30 07:33 07:33 WBC 10.6 H RBC 5.54 Hgb 15.3 Hct 44.9 MCV 81 MCH 27.5 MCHC 34.0 RDW 17.4 H Plt Count 190 Seg Neutrophils % 85.4 H Carbonic Acid HCO3/H2CO3 Ratio ABG pH ABG pCO2 ABG pO2 ABG HCO3 ABG O2 Saturation ABG Base Excess VBG pH VBG pCO2 VBG HCO3 VBG Base Excess FiO2 Sodium 130.1 L Potassium 6.3 H* Chloride 97 L Carbon Dioxide 15 L Anion Gap 18 BUN 87 H Creatinine 11.95 H Est GFR ( Amer) 5 L Glucose 98 Lactic Acid Calcium 7.5 L Ionized Calcium Janie Magnesium 2.9 H Total Bilirubin 2.2 H AST 155 H Alkaline Phosphatase 124 Ammonia Total Protein 7.2 Albumin 3.2 L Amylase Lipase TSH Free T4 Urine Color YELLOW Urine Appearance CLEAR Urine pH 5.0 Ur Specific [place] 1.010 Urine Protein NEGATIVE Urine Glucose (UA) NEGATIVE Urine Ketones NEGATIVE Urine Blood LARGE H Urine Nitrite NEGATIVE Ur Leukocyte Esterase NEGATIVE Urine WBC (Auto) 5 Urine RBC (Auto) >182 Blood Type Antibody Screen 02/18/20 02/18/20 02/18/20 07:33 07:33 07:33 WBC RBC Hgb Hct MCV MCH MCHC RDW Plt Count Seg Neutrophils % Carbonic Acid HCO3/H2CO3 Ratio ABG pH ABG pCO2 ABG pO2 ABG HCO3 ABG O2 Saturation ABG Base Excess VBG pH 7.23 L VBG pCO2 41.6 VBG HCO3 17.2 L VBG Base Excess -9.8 FiO2 Sodium Potassium Chloride Carbon Dioxide Anion Gap BUN Creatinine Est GFR ( Amer) Glucose Lactic Acid 0.9 Calcium Ionized Calcium Janie Magnesium Total Bilirubin AST Alkaline Phosphatase Ammonia Total Protein Albumin Amylase Lipase TSH < 0.01 L Free T4 Urine Color Urine Appearance Urine pH Ur Specific [place] Urine Protein Urine Glucose (UA) Urine Ketones Urine Blood Urine Nitrite Ur Leukocyte Esterase Urine WBC (Auto) Urine RBC (Auto) Blood Type Antibody Screen 02/18/20 02/18/20 02/18/20 07:33 07:33 07:53 WBC RBC Hgb Hct MCV MCH MCHC RDW Plt Count Seg Neutrophils % Carbonic Acid HCO3/H2CO3 Ratio ABG pH ABG pCO2 ABG pO2 ABG HCO3 ABG O2 Saturation ABG Base Excess VBG pH VBG pCO2 VBG HCO3 VBG Base Excess FiO2 Sodium Potassium Chloride Carbon Dioxide Anion Gap BUN Creatinine Est GFR ( Amer) Glucose Lactic Acid Calcium Ionized Calcium Janie Magnesium Cancelled Total Bilirubin AST Alkaline Phosphatase Ammonia Total Protein Albumin Amylase 84 Lipase 110.5 TSH < 0.01 L Free T4 5.66 H Urine Color Urine Appearance Urine pH Ur Specific [place] Urine Protein Urine Glucose (UA) Urine Ketones Urine Blood Urine Nitrite Ur Leukocyte Esterase Urine WBC (Auto) Urine RBC (Auto) Blood Type O POSITIVE Antibody Screen NEGATIVE 02/18/20 02/18/20 02/18/20 11:44 14:19 14:19 WBC RBC Hgb Hct MCV MCH MCHC RDW Plt Count Seg Neutrophils % Carbonic Acid HCO3/H2CO3 Ratio ABG pH ABG pCO2 ABG pO2 ABG HCO3 ABG O2 Saturation ABG Base Excess VBG pH VBG pCO2 VBG HCO3 VBG Base Excess FiO2 Sodium 130.9 L Potassium 6.6 H* Chloride 98 Carbon Dioxide 16 L Anion Gap 17 BUN 88 H Creatinine 12.01 H Est GFR ( Amer) 5 L Glucose 96 Lactic Acid 1.2 1.6 Calcium 7.3 L Ionized Calcium Janie Magnesium Total Bilirubin AST Alkaline Phosphatase Ammonia Total Protein Albumin Amylase Lipase TSH Free T4 Urine Color Urine Appearance Urine pH Ur Specific [place] Urine Protein Urine Glucose (UA) Urine Ketones Urine Blood Urine Nitrite Ur Leukocyte Esterase Urine WBC (Auto) Urine RBC (Auto) Blood Type Antibody Screen 02/18/20 02/18/20 02/18/20 14:19 14:19 14:19 WBC 11.1 H RBC 5.19 Hgb 13.8 Hct 41.5 MCV 80 MCH 26.7 L MCHC 33.3 RDW 17.3 H Plt Count 175 Seg Neutrophils % Carbonic Acid HCO3/H2CO3 Ratio ABG pH ABG pCO2 ABG pO2 ABG HCO3 ABG O2 Saturation ABG Base Excess VBG pH VBG pCO2 VBG HCO3 VBG Base Excess FiO2 Sodium Potassium Chloride Carbon Dioxide Anion Gap BUN Creatinine Est GFR ( Amer) Glucose Lactic Acid Calcium Ionized Calcium Janie 0.99 L Magnesium Total Bilirubin AST Alkaline Phosphatase Ammonia < 8.7 L Total Protein Albumin Amylase Lipase TSH Free T4 Urine Color Urine Appearance Urine pH Ur Specific [place] Urine Protein Urine Glucose (UA) Urine Ketones Urine Blood Urine Nitrite Ur Leukocyte Esterase Urine WBC (Auto) Urine RBC (Auto) Blood Type Antibody Screen 02/18/20 02/18/20 02/18/20 14:19 14:24 14:44 WBC RBC Hgb Hct MCV MCH MCHC RDW Plt Count Seg Neutrophils % Carbonic Acid 0.94 L HCO3/H2CO3 Ratio 17:1 ABG pH 7.35 ABG pCO2 31.2 L ABG pO2 70.6 L ABG HCO3 16.7 L ABG O2 Saturation 93.6 L ABG Base Excess -7.7 VBG pH VBG pCO2 VBG HCO3 VBG Base Excess FiO2 21% Sodium Potassium Chloride Carbon Dioxide Anion Gap BUN Creatinine Est GFR ( Amer) Glucose Lactic Acid Calcium Ionized Calcium Janie Magnesium 2.9 H Total Bilirubin AST Alkaline Phosphatase Ammonia Total Protein Albumin Amylase Lipase TSH Free T4 Urine Color YELLOW Urine Appearance SLIGHTLY-CLOUDY Urine pH 5.0 Ur Specific [place] 1.009 Urine Protein 30 H Urine Glucose (UA) NEGATIVE Urine Ketones NEGATIVE Urine Blood LARGE H Urine Nitrite NEGATIVE Ur Leukocyte Esterase TRACE H Urine WBC (Auto) 10 Urine RBC (Auto) >182 Blood Type Antibody Screen 02/18/20 17:27 WBC RBC Hgb Hct MCV MCH MCHC RDW Plt Count Seg Neutrophils % Carbonic Acid HCO3/H2CO3 Ratio ABG pH ABG pCO2 ABG pO2 ABG HCO3 ABG O2 Saturation ABG Base Excess VBG pH VBG pCO2 VBG HCO3 VBG Base Excess FiO2 Sodium 133.9 L Potassium 5.1 H D Chloride 101 Carbon Dioxide 20 L Anion Gap 13 BUN 87 H Creatinine 11.77 H Est GFR ( Amer) 5 L Glucose 114 H Lactic Acid Calcium 7.2 L Ionized Calcium Janie Magnesium Total Bilirubin AST Alkaline Phosphatase Ammonia Total Protein Albumin Amylase Lipase TSH Free T4 Urine Color Urine Appearance Urine pH Ur Specific [place] Urine Protein Urine Glucose (UA) Urine Ketones Urine Blood Urine Nitrite Ur Leukocyte Esterase Urine WBC (Auto) Urine RBC (Auto) Blood Type Antibody Screen 02/18/20 02/18/20 02/18/20 07:33 07:33 07:33 Creatine Kinase 187 H CK-MB (CK-2) Troponin I 0.032 NT-Pro-B Natriuret Pep 2760 H 02/18/20 02/18/20 14:19 14:19 Creatine Kinase 163 CK-MB (CK-2) 1.63 Troponin I 0.028 NT-Pro-B Natriuret Pep Impressions: Renal Ultrasound 02/18/20 09:10 IMPRESSION: 1. No hydronephrosis. 2. Left-sided renal cysts that measure up to 4.5 x 4.5 x 3.8 cm. 3. Pineda catheter within the contracted urinary bladder. Assessment & Plan - Diagnosis (1) Acute kidney injury Is this a current diagnosis for this admission?: Yes Plan: Patient presents with acute kidney injury with metabolic acidosis hyperkalemia, potential etiology, cardiorenal syndrome, sepsis, ATN with a background of low blood pressure, give Kayexalate start bicarbonate infusion Kidney ultrasound showed no hydronephrosis, there are several renal cysts in the left kidney (2) Chronic combined systolic and diastolic heart failure Is this a current diagnosis for this admission?: Yes Plan: Obtain 2D echo for evaluation (3) Hyperkalemia Is this a current diagnosis for this admission?: Yes (4) Metabolic acidosis Is this a current diagnosis for this admission?: Yes (5) Hypotension Qualifiers: Hypotension type: unspecified hypotension type Qualified Code(s): I95.9 - Hypotension, unspecified Is this a current diagnosis for this admission?: Yes Plan: Patient with a history of low blood pressure in the past, cannot complete rule out sepsis, blood culture urine culture start antibiotic empirically with Unasyn
[2020-02-18 21:48] LABS: CREATINE KINASE MB 1.48 ng/mL (<4.55); TROPONIN I 0.033 ng/mL
[2020-02-18] MEDS: SODIUM BICARBONATE 650 MG TABLET PO SCH (21:57)
[2020-02-19] MEDS: DEXTROSE 5%-WATER 1000 ML 1,000 ML with SODIUM BICARBONATE 150 MEQ IV PRN ×2 (00:53)
[2020-02-19 01:22] LABS: CREATINE KINASE MB 1.26 ng/mL (<4.55); TROPONIN I 0.029 ng/mL
[2020-02-19] MEDS: NORMAL SALINE 1000 ML 1,000 ML IV PRN ×3 (05:29→19:52)
[2020-02-19 06:55] LABS: HEMATOCRIT 36.1 % (37.9-51.0); HEMOGLOBIN 12.2 g/dL (13.5-17.0); MEAN CORPUSCULAR HEMOGLOBIN 26.9 pg (27.0-33.4); MEAN CORPUSCULAR HGB CONC 33.9 g/dL (32.0-36.0); MEAN CORPUSCULAR VOLUME 79 fl (80-97); PLATELET COUNT 138 10^3/uL (150-450); RED BLOOD COUNT 4.54 10^6/uL (4.35-5.55); WHITE BLOOD COUNT 9.7 10^3/uL (4.0-10.5)
[2020-02-19 07:10] LABS: ALBUMIN 1.9 g/dL (3.5-5.0); ALKALINE PHOSPHATASE 75 U/L (38-126); ANION GAP 11 (5-19); ASPARTATE AMINO TRANSFERASE 97 U/L (17-59); BILIRUBIN,DIRECT 0.8 mg/dL (0.0-0.4); BILIRUBIN,TOTAL 1.1 mg/dL (0.2-1.3); BLOOD UREA NITROGEN 79 mg/dL (7-20); CARBON DIOXIDE 23 mmol/L (22-30); CHLORIDE 102 mmol/L (98-107); CHOLESTEROL 50.56 mg/dL (0-200); GLUCOSE 131 mg/dL (75-110); PHOSPHORUS 5.7 mg/dL (2.5-4.5); TOTAL PROTEIN 4.7 g/dL (6.3-8.2); TRIGLYCERIDES 63 mg/dL (<150)
[2020-02-19 07:24] LABS: POTASSIUM 3.7 mmol/L (3.6-5.0)
[2020-02-19 07:34] LABS: DIRECT LDL < 30 mg/dL (<100)
[2020-02-19] MEDS: SODIUM BICARBONATE 650 MG TABLET PO SCH (09:02)
--- NOTE | 2020-02-19 11:16 | PDOC PROGRESS REPORT ---
Subjective Progress Note for:: 02/19/20 Reason For Visit: Patient seen today. Apparently he is more awake and responsive to questions and he answers without any evidences of confusion or disorientation. Discussions were done with the treating nurse Paris as well. He is awake and responsive to questions. He is aware of the fact that he is in the hospital. He mentions he has had diarrhea since being in the hospital and Paris mentions it was most likely from his Kayexalate given to him at the ER. He denies any history of chest pain or shortness of breath. No abdominal pains. Appetite is still poor but he is drinking some fluids. Labs and medications were reviewed. He has a background history of dementia, CKD, PVD, bilateral above the knee amputations, and a-fib on elquis with a pacemaker was transferred to the ER from a SNF. He was sent for decreased urination over the past few days. In the ER he was found to be hypotensive, he had a slight hypothemia. Labs were drawn that showed a creatinine of 11.95, potassium of 6.3, bicarb of 15, calcium of 7.5, mag of 2.9, and a slight white count of 10.6. He was give 1L of normal saline, calcium gluconate, sodium bicarb, insulin w/d50 and furosemide. Physical Exam Vital Signs: Temp Pulse Resp BP Pulse Ox 98.1 F 60 18 82/43 L 94 02/19/20 08:10 02/19/20 08:10 02/19/20 08:10 02/19/20 08:10 02/19/20 08:10 Intake & Output 02/18/20 02/19/20 02/20/20 06:59 06:59 06:59 Intake Total 4050 Output Total 100 Balance 3950 Weight 66 kg 66.4 kg 66.4 kg General appearance: PRESENT: no acute distress, thin Exam: He is aware of the fact that he is in the hospital. He has asterixis. He is rather emaciated and dehydrated. Eye exam: PRESENT: EOMI, PERRLA. ABSENT: scleral icterus Mouth exam: PRESENT: neck supple. ABSENT: moist Neck exam: ABSENT: meningismus, tenderness, thyromegaly, tracheal deviation Respiratory exam: PRESENT: clear to auscultation srikanth, decreased breath sounds. ABSENT: crackles Cardiovascular exam: PRESENT: +S1, +S2 GI/Abdominal exam: PRESENT: normal bowel sounds, soft. ABSENT: organomegaly, tenderness Extremities exam: ABSENT: pedal edema Neurological exam: PRESENT: alert, awake, oriented to place Psychiatric exam: PRESENT: appropriate affect Skin exam: PRESENT: dry. ABSENT: erythema, rash Results Laboratory Results: 02/19/20 06:36 02/19/20 06:36 02/18/20 02/18/20 02/18/20 07:33 07:33 11:44 WBC RBC Hgb Hct MCV MCH MCHC RDW Plt Count Carbonic Acid HCO3/H2CO3 Ratio ABG pH ABG pCO2 ABG pO2 ABG HCO3 ABG O2 Saturation ABG Base Excess FiO2 Sodium Potassium Chloride Carbon Dioxide Anion Gap BUN Creatinine Est GFR ( Amer) Glucose Lactic Acid 1.2 Calcium Ionized Calcium Janie Phosphorus Magnesium Cancelled Total Bilirubin AST Alkaline Phosphatase Ammonia Total Protein Albumin Triglycerides Cholesterol LDL Cholesterol Direct VLDL Cholesterol HDL Cholesterol Amylase 84 Lipase 110.5 TSH < 0.01 L Free T4 5.66 H Urine Color Urine Appearance Urine pH Ur Specific [place] Urine Protein Urine Glucose (UA) Urine Ketones Urine Blood Urine Nitrite Ur Leukocyte Esterase Urine WBC (Auto) Urine RBC (Auto) 02/18/20 02/18/20 02/18/20 14:19 14:19 14:19 WBC 11.1 H RBC 5.19 Hgb 13.8 Hct 41.5 MCV 80 MCH 26.7 L MCHC 33.3 RDW 17.3 H Plt Count 175 Carbonic Acid HCO3/H2CO3 Ratio ABG pH ABG pCO2 ABG pO2 ABG HCO3 ABG O2 Saturation ABG Base Excess FiO2 Sodium 130.9 L Potassium 6.6 H* Chloride 98 Carbon Dioxide 16 L Anion Gap 17 BUN 88 H Creatinine 12.01 H Est GFR ( Amer) 5 L Glucose 96 Lactic Acid 1.6 Calcium 7.3 L Ionized Calcium Janie Phosphorus Magnesium Total Bilirubin AST Alkaline Phosphatase Ammonia Total Protein Albumin Triglycerides Cholesterol LDL Cholesterol Direct VLDL Cholesterol HDL Cholesterol Amylase Lipase TSH Free T4 Urine Color Urine Appearance Urine pH Ur Specific [place] Urine Protein Urine Glucose (UA) Urine Ketones Urine Blood Urine Nitrite Ur Leukocyte Esterase Urine WBC (Auto) Urine RBC (Auto) 02/18/20 02/18/20 02/18/20 14:19 14:19 14:19 WBC RBC Hgb Hct MCV MCH MCHC RDW Plt Count Carbonic Acid HCO3/H2CO3 Ratio ABG pH ABG pCO2 ABG pO2 ABG HCO3 ABG O2 Saturation ABG Base Excess FiO2 Sodium Potassium Chloride Carbon Dioxide Anion Gap BUN Creatinine Est GFR ( Amer) Glucose Lactic Acid Calcium Ionized Calcium Janie 0.99 L Phosphorus Magnesium 2.9 H Total Bilirubin AST Alkaline Phosphatase Ammonia < 8.7 L Total Protein Albumin Triglycerides Cholesterol LDL Cholesterol Direct VLDL Cholesterol HDL Cholesterol Amylase Lipase TSH Free T4 Urine Color Urine Appearance Urine pH Ur Specific [place] Urine Protein Urine Glucose (UA) Urine Ketones Urine Blood Urine Nitrite Ur Leukocyte Esterase Urine WBC (Auto) Urine RBC (Auto) 02/18/20 02/18/20 02/18/20 14:24 14:44 17:27 WBC RBC Hgb Hct MCV MCH MCHC RDW Plt Count Carbonic Acid 0.94 L HCO3/H2CO3 Ratio 17:1 ABG pH 7.35 ABG pCO2 31.2 L ABG pO2 70.6 L ABG HCO3 16.7 L ABG O2 Saturation 93.6 L ABG Base Excess -7.7 FiO2 21% Sodium 133.9 L Potassium 5.1 H D Chloride 101 Carbon Dioxide 20 L Anion Gap 13 BUN 87 H Creatinine 11.77 H Est GFR ( Amer) 5 L Glucose 114 H Lactic Acid Calcium 7.2 L Ionized Calcium Janie Phosphorus Magnesium Total Bilirubin AST Alkaline Phosphatase Ammonia Total Protein Albumin Triglycerides Cholesterol LDL Cholesterol Direct VLDL Cholesterol HDL Cholesterol Amylase Lipase TSH Free T4 Urine Color YELLOW Urine Appearance SLIGHTLY-CLOUDY Urine pH 5.0 Ur Specific [place] 1.009 Urine Protein 30 H Urine Glucose (UA) NEGATIVE Urine Ketones NEGATIVE Urine Blood LARGE H Urine Nitrite NEGATIVE Ur Leukocyte Esterase TRACE H Urine WBC (Auto) 10 Urine RBC (Auto) >182 02/19/20 02/19/20 06:36 06:36 WBC 9.7 RBC 4.54 Hgb 12.2 L Hct 36.1 L MCV 79 L MCH 26.9 L MCHC 33.9 RDW 17.0 H Plt Count 138 L Carbonic Acid HCO3/H2CO3 Ratio ABG pH ABG pCO2 ABG pO2 ABG HCO3 ABG O2 Saturation ABG Base Excess FiO2 Sodium 135.6 L Potassium 3.7 D Chloride 102 Carbon Dioxide 23 Anion Gap 11 BUN 79 H Creatinine 10.27 H Est GFR ( Amer) 6 L Glucose 131 H Lactic Acid Calcium 6.0 L* Ionized Calcium Janie Phosphorus 5.7 H Magnesium Total Bilirubin 1.1 AST 97 H Alkaline Phosphatase 75 Ammonia Total Protein 4.7 L Albumin 1.9 L Triglycerides 63 Cholesterol 50.56 LDL Cholesterol Direct < 30 VLDL Cholesterol 13.0 HDL Cholesterol 11 L Amylase Lipase TSH Free T4 Urine Color Urine Appearance Urine pH Ur Specific [place] Urine Protein Urine Glucose (UA) Urine Ketones Urine Blood Urine Nitrite Ur Leukocyte Esterase Urine WBC (Auto) Urine RBC (Auto) 02/18/20 02/18/20 02/18/20 07:33 07:33 07:33 Creatine Kinase 187 H CK-MB (CK-2) Troponin I 0.032 NT-Pro-B Natriuret Pep 2760 H 02/18/20 02/18/20 02/18/20 14:19 14:19 17:27 Creatine Kinase 163 186 H CK-MB (CK-2) 1.63 Troponin I 0.028 NT-Pro-B Natriuret Pep 02/18/20 02/19/20 02/19/20 17:27 00:46 00:46 Creatine Kinase 154 CK-MB (CK-2) 1.48 1.26 Troponin I 0.033 0.029 NT-Pro-B Natriuret Pep Impressions: Renal Ultrasound 02/18/20 09:10 IMPRESSION: 1. No hydronephrosis. 2. Left-sided renal cysts that measure up to 4.5 x 4.5 x 3.8 cm. 3. Pineda catheter within the contracted urinary bladder. Assessment & Plan - Diagnosis (1) Acute kidney injury Is this a current diagnosis for this admission?: Yes Plan: Anuric. Patient clinically still quite dehydrated.I am going to increase his normal saline to 200 cc/h and stop his IV sodium bicarbonate and p.o. replacements given the fact that his acidosis is markedly improved. He is got asterixis which could be a combination from his TANA as well as possible hepatic failure but those enzymes are improving. Right now I would like to see the response to fluid replacements and not going to initiate renal replacements at the moment even though his renal numbers are still not markedly improved. Continue to monitor closely. Discussions were done with the treating nurse Paris. (2) Metabolic acidosis Is this a current diagnosis for this admission?: Yes Plan: Markedly improved. DC IV and p.o. replacements. (3) Hyperkalemia Is this a current diagnosis for this admission?: Yes Plan: Resolved and now normal and in fact low normal. (4) Hypocalcemia Plan: Being replaced. Check ionized calcium since his albumin is pretty low at 1.9. (5) Chronic atrial fibrillation Plan: Background of combined heart failure. Presently rate controlled. Was on amiodarone. (6) Hypotension Qualifiers: Hypotension type: unspecified hypotension type Qualified Code(s): I95.9 - Hypotension, unspecified Is this a current diagnosis for this admission?: Yes Plan: Differential diagnosis includes severe dehydration/combined heart failure/ iatrogenic/[place]/septic. No gayle evidences of sepsis though. See response to fluid replacements. Order cortisol levels in the morning. 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 Possibly multifactorial that includes possibly iatrogenic given the fact that he was on amiodarone/Lipitor. However needs to rule out possibility of hepatitis as well and will order serologies. No previous history of cirrhosis of the liver or previous hepatitis infections. Also given his altered mental status will also check ammonia levels.
[2020-02-19] MEDS: AMPICILLIN SODIUM/SULBACTAM NA 1.5 GM in NORMAL SALINE 50 ML IV SCH (14:41)
[2020-02-19 16:41] LABS: ANION GAP 10 (5-19); BLOOD UREA NITROGEN 77 mg/dL (7-20); CARBON DIOXIDE 24 mmol/L (22-30); CHLORIDE 101 mmol/L (98-107); GLUCOSE 95 mg/dL (75-110); POTASSIUM 3.7 mmol/L (3.6-5.0)
--- NOTE | 2020-02-19 20:00 | PDOC PROGRESS REPORT ---
Subjective Progress Note for:: 02/19/20 Subjective:: Patient is more responsive today, he was seen by nephrology earlier today, is asking for his legs though is bilateral AKA Reason For Visit: ACUTE KIDNEY INJURY,HYPOTENSION,SHOCK LIVER,SEPSIS Physical Exam Vital Signs: Temp Pulse Resp BP Pulse Ox 98.8 F 59 L 16 71/40 L 97 02/19/20 14:57 02/19/20 14:57 02/19/20 14:57 02/19/20 14:57 02/19/20 14:57 Intake & Output 02/18/20 02/19/20 02/20/20 06:59 06:59 06:59 Intake Total 4050 0 Output Total 100 115 Balance 3950 -115 Weight 66 kg 66.4 kg 66.4 kg General appearance: PRESENT: no acute distress Eye exam: PRESENT: PERRLA Respiratory exam: PRESENT: clear to auscultation srikanth Cardiovascular exam: PRESENT: +S1, +S2 GI/Abdominal exam: PRESENT: soft Neurological exam: PRESENT: alert Results Laboratory Results: 02/19/20 06:36 02/19/20 16:03 02/19/20 02/19/20 02/19/20 06:36 06:36 16:03 WBC 9.7 RBC 4.54 Hgb 12.2 L Hct 36.1 L MCV 79 L MCH 26.9 L MCHC 33.9 RDW 17.0 H Plt Count 138 L Sodium 135.6 L 134.7 L Potassium 3.7 D 3.7 Chloride 102 101 Carbon Dioxide 23 24 Anion Gap 11 10 BUN 79 H 77 H Creatinine 10.27 H 10.10 H Est GFR ( Amer) 6 L 6 L Glucose 131 H 95 Calcium 6.0 L* 6.0 L* Ionized Calcium Janie Phosphorus 5.7 H Total Bilirubin 1.1 AST 97 H Alkaline Phosphatase 75 Total Protein 4.7 L Albumin 1.9 L Triglycerides 63 Cholesterol 50.56 LDL Cholesterol Direct < 30 VLDL Cholesterol 13.0 HDL Cholesterol 11 L PTH Intact 02/19/20 02/19/20 16:03 16:03 WBC RBC Hgb Hct MCV MCH MCHC RDW Plt Count Sodium Potassium Chloride Carbon Dioxide Anion Gap BUN Creatinine Est GFR ( Amer) Glucose Calcium Ionized Calcium Ajnie 0.85 L Phosphorus Total Bilirubin AST Alkaline Phosphatase Total Protein Albumin Triglycerides Cholesterol LDL Cholesterol Direct VLDL Cholesterol HDL Cholesterol PTH Intact 561.6 H 02/18/20 02/18/20 02/18/20 07:33 07:33 07:33 Creatine Kinase 187 H CK-MB (CK-2) Troponin I 0.032 NT-Pro-B Natriuret Pep 2760 H 02/18/20 02/18/20 02/18/20 14:19 14:19 17:27 Creatine Kinase 163 186 H CK-MB (CK-2) 1.63 Troponin I 0.028 NT-Pro-B Natriuret Pep 02/18/20 02/19/20 02/19/20 17:27 00:46 00:46 Creatine Kinase 154 CK-MB (CK-2) 1.48 1.26 Troponin I 0.033 0.029 NT-Pro-B Natriuret Pep Impressions: Renal Ultrasound 02/18/20 09:10 IMPRESSION: 1. No hydronephrosis. 2. Left-sided renal cysts that measure up to 4.5 x 4.5 x 3.8 cm. 3. Pineda catheter within the contracted urinary bladder. Assessment & Plan - Diagnosis (1) Acute kidney injury Is this a current diagnosis for this admission?: Yes (2) Chronic combined systolic and diastolic heart failure Is this a current diagnosis for this admission?: Yes (3) Hyperkalemia Is this a current diagnosis for this admission?: Yes Plan: Resolved (4) Metabolic acidosis Is this a current diagnosis for this admission?: Yes Plan: Resolved (5) Hypotension Qualifiers: Hypotension type: unspecified hypotension type Qualified Code(s): I95.9 - Hypotension, unspecified Is this a current diagnosis for this admission?: Yes - Time Time Spent with patient: 25-34 minutes Level of Care: IMCU
--- NOTE | 2020-02-20 00:21 | XCELERA REPORT ---
[address] [address] Transthoracic Echocardiogram Report Name: MOHAN BALLESTEROS JR Age: 79 yrs Gender: Male : 1940 Patient Status: Inpatient Patient Location: [address] [place] [address] Study Date: 02/18/2020 05:52 PM Height: 60 in Weight: 145 lb BSA: 1.6 m2 Procedure: A two-dimensional transthoracic echocardiogram with color flow and Doppler was performed. Study Quality: Technically suboptimal. The study was technically difficult with many images being suboptimal in quality. Images were not obtained from all of the standard acoustic windows due to the limited scope of the study. Reason For Study: acute systolic heart failure History: acute systolic heart failure. Ordering Physician: CAYETANO RAY Performed By: Stephanie Ballesteros Interpretation Summary Probably no MS and trace MR,No or AR,Probably tace TR with mild Pulmonary hypertension.RVSP is 37 mm of Hg , with RA mean of 10.NNNNProbably no pericardial rffusion. The left ventricle is grossly normal size. Probably no LVH.Due to limited views and poor endocardial visualisation cannot comment on wall motion or LVEF.ecommend MUGA for LVEF. Right atrium not well visualized secondary to technical limitations Probably normal LA size. Probably no MS and trace MR,No or AR,Probably tace TR with mild Pulmonary hypertension.RVSP is 37 mm of Hg , with RA mean of 10.NNNNProbably no pericardial rffusion. MMode/2D Measurements & Calculations RVDd: 3.1 cm LVIDd: 4.6 cm FS: 42.0 % Ao root diam: 3.3 cm IVSd: 1.1 cm LVIDs: 2.7 cm EDV(Teich): 96.0 ml Ao root area: 8.3 cm2 LVPWd: 1.1 cm ESV(Teich): 25.9 ml LA dimension: 3.0 cm EF(Teich): 73.0 % Doppler Measurements & Calculations MV E max isidra: MV dec slope: Ao V2 max: PA V2 max: 57.8 cm/sec 193.0 cm/sec2 80.1 cm/sec 75.5 cm/sec MV A max isidra: MV dec time: 0.30 sec Ao max PG: PA max P.0 cm/sec 2.6 mmHg 2.3 mmHg MV E/A: 1.2 TR max isidra: 257.9 cm/sec TR max P.6 mmHg Left Ventricle The left ventricle is grossly normal size. Probably no LVH.Due to limited views and poor endocardial visualisation cannot comment on wall motion or LVEF.ecommend MUGA for LVEF. Right Ventricle The right ventricle is not well visualized secondary to technical limitations. Atria Right atrium not well visualized secondary to technical limitations. Probably normal LA size. : CAYETANO RAY Lakshmi
[2020-02-20] MEDS: NORMAL SALINE 1000 ML 1,000 ML IV PRN ×4 (00:44→23:20)
[2020-02-20 05:32] LABS: HEMATOCRIT 36.2 % (37.9-51.0); HEMOGLOBIN 12.3 g/dL (13.5-17.0); MEAN CORPUSCULAR HEMOGLOBIN 27.1 pg (27.0-33.4); MEAN CORPUSCULAR HGB CONC 33.9 g/dL (32.0-36.0); MEAN CORPUSCULAR VOLUME 80 fl (80-97); PLATELET COUNT 130 10^3/uL (150-450); RED BLOOD COUNT 4.52 10^6/uL (4.35-5.55); RED CELL DISTRIBUTION WIDTH 16.8 % (11.5-14.0); WHITE BLOOD COUNT 13.5 10^3/uL (4.0-10.5)
[2020-02-20 05:54] LABS: ALBUMIN 2.1 g/dL (3.5-5.0); ALKALINE PHOSPHATASE 82 U/L (38-126); ANION GAP 10 (5-19); ASPARTATE AMINO TRANSFERASE 168 U/L (17-59); BILIRUBIN,DIRECT 1.3 mg/dL (0.0-0.4); BILIRUBIN,TOTAL 1.8 mg/dL (0.2-1.3); BLOOD UREA NITROGEN 71 mg/dL (7-20); CARBON DIOXIDE 22 mmol/L (22-30); CHLORIDE 104 mmol/L (98-107); GLUCOSE 88 mg/dL (75-110); PHOSPHORUS 5.9 mg/dL (2.5-4.5); POTASSIUM 3.5 mmol/L (3.6-5.0); TOTAL PROTEIN 5.4 g/dL (6.3-8.2)
[2020-02-20 06:31] LABS: CALCIUM 6.2 mg/dL (8.4-10.2)
[2020-02-20] MEDS: AMPICILLIN SODIUM/SULBACTAM NA 1.5 GM in NORMAL SALINE 50 ML IV SCH (14:36)
--- NOTE | 2020-02-20 15:21 | PDOC PROGRESS REPORT ---
Subjective Progress Note for:: 02/20/20 Subjective:: Patient was seen laying in his bed at the time of examination. He is answering questions correctly. According to the nurse in charge of his care he remains fixed on needing use the restroom or trying to get his cellphone that he does not own. Patients urine output remains poor. Appetite has improved. He denies chest pain, SOB, n/v. Reason For Visit: ACUTE KIDNEY INJURY,HYPOTENSION,SHOCK LIVER,SEPSIS Physical Exam Vital Signs: Temp Pulse Resp BP Pulse Ox 97.7 F 60 18 110/56 L 94 02/20/20 07:19 02/20/20 14:00 02/20/20 07:19 02/20/20 07:19 02/20/20 07:19 Intake & Output 02/19/20 02/20/20 02/21/20 06:59 06:59 06:59 Intake Total 4050 3240 1000 Output Total 100 215 Balance 3950 3025 1000 Weight 66.4 kg 66.7 kg General appearance: PRESENT: no acute distress, well-developed, well-nourished Mouth exam: PRESENT: dry mucosa, neck supple Neck exam: ABSENT: JVD, tracheal deviation Respiratory exam: PRESENT: clear to auscultation srikanth. ABSENT: crackles, rales, rhonchi, wheezes Cardiovascular exam: PRESENT: +S1, +S2 GI/Abdominal exam: PRESENT: normal bowel sounds, soft. ABSENT: organomegaly, tenderness Extremities exam: ABSENT: tenderness, +1 edema, +2 edema Musculoskeletal exam: PRESENT: deformity - -bilaterial AKA.. ABSENT: normal inspection Neurological exam: PRESENT: altered, awake, oriented to person, oriented to place. ABSENT: oriented to time, oriented to situation Skin exam: PRESENT: dry, intact, warm. ABSENT: cyanosis Results Laboratory Results: 02/20/20 05:11 02/20/20 05:11 02/19/20 02/19/20 02/19/20 16:03 16:03 16:03 WBC RBC Hgb Hct MCV MCH MCHC RDW Plt Count Sodium 134.7 L Potassium 3.7 Chloride 101 Carbon Dioxide 24 Anion Gap 10 BUN 77 H Creatinine 10.10 H Est GFR ( Amer) 6 L Glucose 95 Calcium 6.0 L* Ionized Calcium Janie 0.85 L Phosphorus Total Bilirubin AST Alkaline Phosphatase Ammonia Total Protein Albumin PTH Intact 561.6 H 02/19/20 02/20/20 02/20/20 17:54 05:11 05:11 WBC 13.5 H RBC 4.52 Hgb 12.3 L Hct 36.2 L MCV 80 MCH 27.1 MCHC 33.9 RDW 16.8 H Plt Count 130 L Sodium 135.8 L Potassium 3.5 L Chloride 104 Carbon Dioxide 22 Anion Gap 10 BUN 71 H Creatinine 10.09 H Est GFR ( Amer) 6 L Glucose 88 Calcium 6.2 L* Ionized Calcium Janie Phosphorus 5.9 H Total Bilirubin 1.8 H AST 168 H Alkaline Phosphatase 82 Ammonia < 8.7 L Total Protein 5.4 L Albumin 2.1 L PTH Intact 02/18/20 05:30 Catheterized Urine Urine Culture - Final Enterococcus Faecalis(Group D) Escherichia Coli 02/18/20 02/18/20 02/18/20 07:33 07:33 07:33 Creatine Kinase 187 H CK-MB (CK-2) Troponin I 0.032 NT-Pro-B Natriuret Pep 2760 H 02/18/20 02/18/20 02/18/20 14:19 14:19 17:27 Creatine Kinase 163 186 H CK-MB (CK-2) 1.63 Troponin I 0.028 NT-Pro-B Natriuret Pep 02/18/20 02/19/20 02/19/20 17:27 00:46 00:46 Creatine Kinase 154 CK-MB (CK-2) 1.48 1.26 Troponin I 0.033 0.029 NT-Pro-B Natriuret Pep Impressions: Renal Ultrasound 02/18/20 09:10 IMPRESSION: 1. No hydronephrosis. 2. Left-sided renal cysts that measure up to 4.5 x 4.5 x 3.8 cm. 3. Pineda catheter within the contracted urinary bladder. Assessment & Plan - Diagnosis (1) Acute kidney injury Is this a current diagnosis for this admission?: Yes Plan: oliguric, continuing with the normal saline for now. He looks to possibly need dialysis tomorrow if his urine output does not increase overnight. At this time surgery has been consulted to place a CVC. Plan is to dialyze him tomorrow if urine output is still poor. (2) Hypotension Qualifiers: Hypotension type: unspecified hypotension type Qualified Code(s): I95.9 - Hypotension, unspecified Is this a current diagnosis for this admission?: Yes Plan: improving with normal saline (3) Hypokalemia Plan: will look to give a 20mEQ supplement of klor con. (4) Hypocalcemia Plan: will look to give him 2g of calcium gluconate and start him on PO calcium along with calcitriol (5) Metabolic acidosis Is this a current diagnosis for this admission?: Yes Plan: resolved (6) Congestive heart failure Qualifiers: Heart failure type: unspecified Heart failure chronicity: unspecified Qualified Code(s): I50.9 - Heart failure, unspecified Plan: stable (7) Hypertension Qualifiers: Hypertension type: essential hypertension Qualified Code(s): I10 - Essential (primary) hypertension Plan: off all bp meds (10) Hepatitis Plan: waiting on hep panels. all hepatotoxic medications have been stopped. Ammonia levels were normal (11) UTI (urinary tract infection) Plan: Culture shows two bacteria with the E. Coli being resistant to ampicillin. With only 10,000 colonies it is less likely to be the offending bacteria.
[2020-02-20] MEDS ORDERED: POTASSIUM CHLORIDE 10 MEQ TABLET.ER PO ONE ×2 (15:24→17:29)
[2020-02-20] MEDS ORDERED: CALCIUM GLUCONATE 1 GM/NS 50 ML RTU IV ONE (15:30)
[2020-02-20] MEDS ORDERED: CALCITRIOL 0.25 MCG CAPSULE PO SCH (15:30)
[2020-02-20] MEDS ORDERED: CALCIUM GLUCONATE 1000 MG/10 ML INJ IV SCH (15:30)
--- NOTE | 2020-02-20 17:59 | Operative Report ---
Nonrecallable Operative Report DATE OF SURGERY: 02/20/20 PREOPERATIVE DIAGNOSIS: acute renal failure POSTOPERATIVE DIAGNOSIS: acute renal failure OPERATION: trialysis catheter placement SURGEON: NIKKY WHEELER ANESTHESIA: Local TISSUE REMOVED OR ALTERED: none COMPLICATIONS: none ESTIMATED BLOOD LOSS: 10cc INTRAOPERATIVE FINDINGS: see note PROCEDURE: Dialysis catheter placement right groin. The procedure was performed while the patient in his hospital bed After appropriate timeout site verification procedure commenced. The right groin was prepped and draped in usual sterile fashion. Using 1% lidocaine plain 80 skin wheal was made directly over the femoral vein in the right groin crease. Using an 16-gauge needle the right femoral vein was accessed. The J-wire was placed through the needle and the needle removed. Then using a 11 blade the skin alen was made at this point of the wire insertion. The serial dilators were placed over the wire and removed. The trialysis catheter was then placed over the wire and then fixed in place with 3-0 nylon suture. All 3 lm were irrigated and withdrew easily with normal saline. A sterile dressing was applied which completed the procedure. Estimated blood loss was less than 10 cc. No complications.
[2020-02-20] MEDS: CALCITRIOL 0.25 MCG CAPSULE PO SCH (18:10)
[2020-02-20] MEDS: CALCIUM CARBONATE 600 MG TABLET PO SCH (18:10)
--- NOTE | 2020-02-20 21:40 | PDOC PROGRESS REPORT ---
Subjective Progress Note for:: 02/20/20 Subjective:: Patient seen by the bedside, urinary output is minimal, probable dialysis, nephrology following, 2D echo was done, results reviewed Reason For Visit: ACUTE KIDNEY INJURY,HYPOTENSION,SHOCK LIVER,SEPSIS Physical Exam Vital Signs: Temp Pulse Resp BP Pulse Ox 99.2 F 67 20 106/55 L 97 02/20/20 19:28 02/20/20 19:28 02/20/20 19:28 02/20/20 19:28 02/20/20 19:28 Intake & Output 02/19/20 02/20/20 02/21/20 06:59 06:59 06:59 Intake Total 4050 3240 1150 Output Total 100 215 75 Balance 3950 3025 1075 Weight 66.4 kg 66.7 kg General appearance: PRESENT: no acute distress Eye exam: PRESENT: PERRLA Respiratory exam: PRESENT: clear to auscultation srikanth Cardiovascular exam: PRESENT: +S1, +S2 GI/Abdominal exam: PRESENT: soft Neurological exam: PRESENT: alert Results Laboratory Results: 02/20/20 05:11 02/20/20 05:11 02/20/20 02/20/20 05:11 05:11 WBC 13.5 H RBC 4.52 Hgb 12.3 L Hct 36.2 L MCV 80 MCH 27.1 MCHC 33.9 RDW 16.8 H Plt Count 130 L Sodium 135.8 L Potassium 3.5 L Chloride 104 Carbon Dioxide 22 Anion Gap 10 BUN 71 H Creatinine 10.09 H Est GFR ( Amer) 6 L Glucose 88 Calcium 6.2 L* Phosphorus 5.9 H Total Bilirubin 1.8 H AST 168 H Alkaline Phosphatase 82 Total Protein 5.4 L Albumin 2.1 L 02/18/20 05:30 Catheterized Urine Urine Culture - Final Enterococcus Faecalis(Group D) Escherichia Coli 02/18/20 02/18/20 02/18/20 07:33 07:33 07:33 Creatine Kinase 187 H CK-MB (CK-2) Troponin I 0.032 NT-Pro-B Natriuret Pep 2760 H 02/18/20 02/18/20 02/18/20 14:19 14:19 17:27 Creatine Kinase 163 186 H CK-MB (CK-2) 1.63 Troponin I 0.028 NT-Pro-B Natriuret Pep 02/18/20 02/19/20 02/19/20 17:27 00:46 00:46 Creatine Kinase 154 CK-MB (CK-2) 1.48 1.26 Troponin I 0.033 0.029 NT-Pro-B Natriuret Pep Impressions: Renal Ultrasound 02/18/20 09:10 IMPRESSION: 1. No hydronephrosis. 2. Left-sided renal cysts that measure up to 4.5 x 4.5 x 3.8 cm. 3. Pineda catheter within the contracted urinary bladder. Assessment & Plan - Diagnosis (1) Acute kidney injury Is this a current diagnosis for this admission?: Yes Plan: Improved (2) Chronic combined systolic and diastolic heart failure Is this a current diagnosis for this admission?: Yes (3) Hyperkalemia Is this a current diagnosis for this admission?: Yes Plan: Resolved (4) Metabolic acidosis Is this a current diagnosis for this admission?: Yes (5) Hypotension Qualifiers: Hypotension type: unspecified hypotension type Qualified Code(s): I95.9 - Hypotension, unspecified Is this a current diagnosis for this admission?: Yes - Time Time Spent with patient: 25-34 minutes Level of Care: IMCU
[2020-02-21] MEDS: NORMAL SALINE 1000 ML 1,000 ML IV PRN (04:25)
[2020-02-21 04:54] LABS: HEMATOCRIT 35.1 % (37.9-51.0); HEMOGLOBIN 11.2 g/dL (13.5-17.0); MEAN CORPUSCULAR HEMOGLOBIN 26.6 pg (27.0-33.4); MEAN CORPUSCULAR VOLUME 83 fl (80-97); PLATELET COUNT 124 10^3/uL (150-450); RED BLOOD COUNT 4.23 10^6/uL (4.35-5.55); RED CELL DISTRIBUTION WIDTH 17.5 % (11.5-14.0); WHITE BLOOD COUNT 17.6 10^3/uL (4.0-10.5)
[2020-02-21 05:03] LABS: ALBUMIN 1.8 g/dL (3.5-5.0); ALKALINE PHOSPHATASE 82 U/L (38-126); ANION GAP 10 (5-19); ASPARTATE AMINO TRANSFERASE 243 U/L (17-59); BILIRUBIN,DIRECT 2.3 mg/dL (0.0-0.4); BILIRUBIN,TOTAL 2.7 mg/dL (0.2-1.3); BLOOD UREA NITROGEN 67 mg/dL (7-20); CARBON DIOXIDE 18 mmol/L (22-30); CHLORIDE 107 mmol/L (98-107); PHOSPHORUS 6.3 mg/dL (2.5-4.5); POTASSIUM 3.8 mmol/L (3.6-5.0); TOTAL PROTEIN 4.7 g/dL (6.3-8.2)
[2020-02-21 05:13] LABS: CALCIUM 6.8 mg/dL (8.4-10.2); GLUCOSE 61 mg/dL (75-110)
[2020-02-21 06:37] LABS: HEPATITS B SURFACE ANTIGEN Negative (Negative)
[2020-02-21] MEDS ORDERED: HEPARIN SOD (PORCINE) 1,000 UNIT/ML 10 ML VIAL IV PRN (06:47)
[2020-02-21 08:35] LABS: HEPATITIS B CORE AB TOT Positive (Negative)
[2020-02-21] MEDS: CALCITRIOL 0.25 MCG CAPSULE PO SCH (09:49)
[2020-02-21] MEDS: CALCIUM CARBONATE 600 MG TABLET PO SCH ×2 (09:49→17:23)
--- NOTE | 2020-02-21 14:06 | PDOC PROGRESS REPORT ---
Subjective Progress Note for:: 02/21/20 Reason For Visit: Patient seen today on dialysis. He has got temporary dialysis catheter. Patient undergoing dialysis without any issues. He denies history of chest pain shortness of breath. Patient mental status still not at baseline as he is still a bit disoriented. Labs and medications were reviewed. Unfortunately still remains rather oliguric. Dialysis orders were reviewed with the treating dialysis nurse. Physical Exam Vital Signs: Temp Pulse Resp BP Pulse Ox 98.6 F 84 18 149/83 H 90 L 02/21/20 11:49 02/21/20 11:49 02/21/20 11:49 02/21/20 11:49 02/21/20 11:58 Intake & Output 02/20/20 02/21/20 02/22/20 06:59 06:59 06:59 Intake Total 3240 3647 100 Output Total 215 350 50 Balance 3025 3297 50 Weight 66.7 kg General appearance: PRESENT: no acute distress Respiratory exam: PRESENT: clear to auscultation srikanth. ABSENT: crackles Cardiovascular exam: PRESENT: +S1, +S2 GI/Abdominal exam: PRESENT: normal bowel sounds, soft. ABSENT: organomegaly, tenderness Extremities exam: ABSENT: pedal edema Neurological exam: PRESENT: alert, awake, oriented to person. ABSENT: oriented to place, oriented to time Skin exam: ABSENT: cyanosis, erythema, mottled Results Laboratory Results: 02/21/20 04:38 02/21/20 04:38 02/21/20 02/21/20 02/21/20 04:38 04:38 04:38 WBC 17.6 H RBC 4.23 L Hgb 11.2 L Hct 35.1 L MCV 83 MCH 26.6 L MCHC 32.0 RDW 17.5 H Plt Count 124 L Sodium 135.3 L Potassium 3.8 Chloride 107 Carbon Dioxide 18 L Anion Gap 10 BUN 67 H Creatinine 9.72 H Est GFR ( Amer) 6 L Glucose 61 L Calcium 6.8 L* Ionized Calcium Janie 0.96 L Phosphorus 6.3 H Total Bilirubin 2.7 H AST 243 H Alkaline Phosphatase 82 Total Protein 4.7 L Albumin 1.8 L 02/18/20 02/18/20 02/18/20 07:33 07:33 07:33 Creatine Kinase 187 H CK-MB (CK-2) Troponin I 0.032 NT-Pro-B Natriuret Pep 2760 H 02/18/20 02/18/20 02/18/20 14:19 14:19 17:27 Creatine Kinase 163 186 H CK-MB (CK-2) 1.63 Troponin I 0.028 NT-Pro-B Natriuret Pep 02/18/20 02/19/20 02/19/20 17:27 00:46 00:46 Creatine Kinase 154 CK-MB (CK-2) 1.48 1.26 Troponin I 0.033 0.029 NT-Pro-B Natriuret Pep Impressions: Renal Ultrasound 02/18/20 09:10 IMPRESSION: 1. No hydronephrosis. 2. Left-sided renal cysts that measure up to 4.5 x 4.5 x 3.8 cm. 3. Pineda catheter within the contracted urinary bladder. Assessment & Plan - Diagnosis (1) Acute kidney injury Is this a current diagnosis for this admission?: Yes Plan: Anuric. Unfortunately patient remains oliguric with hardly any improvement in his renal numbers and remains acidotic. Therefore patient has had temporary dialysis catheter placed and currently undergoing dialysis which is being supervised to ensure safe and smooth procedure. Vital signs are stable. Plan to remove less than 500 cc of fluid. See how his uremia response to dialysis and hopefully he will make renal recovery.. (2) Metabolic acidosis Is this a current diagnosis for this admission?: Yes Plan: See response to dialysis. (3) Hyperkalemia Is this a current diagnosis for this admission?: Yes Plan: Resolved and now normal and in fact low normal. (4) Hypocalcemia Plan: Being replaced. Patient has been begun on calcium as well as vitamin D3 (5) Chronic atrial fibrillation Plan: Background of combined heart failure. Presently rate controlled. Was on amiodarone. (6) Hypotension Qualifiers: Hypotension type: unspecified hypotension type Qualified Code(s): I95.9 - Hypotension, unspecified Is this a current diagnosis for this admission?: Yes Plan: Blood pressure still in the 90s systolics. Patient asymptomatic. Echocardiogram does not reveal any evidences of effusion or tamponade. Normal cortisol levels. IV fluids going in gently and will see the response. If not consider Midodrin. 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 Possibly multifactorial that includes possibly iatrogenic given the fact that he was on amiodarone/Lipitor. However needs to rule out possibility of hepatitis as well and will order serologies. No previous history of cirrhosis of the liver or previous hepatitis infections.
[2020-02-21] MEDS: AMPICILLIN SODIUM/SULBACTAM NA 1.5 GM in NORMAL SALINE 50 ML IV SCH (14:10)
--- NOTE | 2020-02-21 19:12 | PDOC PROGRESS REPORT ---
Subjective Progress Note for:: 02/21/20 Subjective:: Patient was hemodialyzed today, About 500 cc of fluid was removed,he has LUE swelling Reason For Visit: ACUTE KIDNEY INJURY,HYPOTENSION,SHOCK LIVER,SEPSIS Physical Exam Vital Signs: Temp Pulse Resp BP Pulse Ox 97.8 F 90 18 137/73 H 94 02/21/20 15:44 02/21/20 15:44 02/21/20 15:44 02/21/20 15:44 02/21/20 15:44 Intake & Output 02/20/20 02/21/20 02/22/20 06:59 06:59 06:59 Intake Total 3240 3647 200 Output Total 215 350 650 Balance 3025 3297 -450 Weight 66.7 kg General appearance: PRESENT: no acute distress Eye exam: PRESENT: PERRLA Respiratory exam: PRESENT: clear to auscultation srikanth Cardiovascular exam: PRESENT: +S1, +S2 GI/Abdominal exam: PRESENT: soft Neurological exam: PRESENT: alert Results Laboratory Results: 02/21/20 04:38 02/21/20 04:38 02/21/20 02/21/20 02/21/20 04:38 04:38 04:38 WBC 17.6 H RBC 4.23 L Hgb 11.2 L Hct 35.1 L MCV 83 MCH 26.6 L MCHC 32.0 RDW 17.5 H Plt Count 124 L Sodium 135.3 L Potassium 3.8 Chloride 107 Carbon Dioxide 18 L Anion Gap 10 BUN 67 H Creatinine 9.72 H Est GFR ( Amer) 6 L Glucose 61 L Calcium 6.8 L* Ionized Calcium Janie 0.96 L Phosphorus 6.3 H Total Bilirubin 2.7 H AST 243 H Alkaline Phosphatase 82 Total Protein 4.7 L Albumin 1.8 L 02/18/20 02/18/20 02/18/20 07:33 07:33 07:33 Creatine Kinase 187 H CK-MB (CK-2) Troponin I 0.032 NT-Pro-B Natriuret Pep 2760 H 02/18/20 02/18/20 02/18/20 14:19 14:19 17:27 Creatine Kinase 163 186 H CK-MB (CK-2) 1.63 Troponin I 0.028 NT-Pro-B Natriuret Pep 02/18/20 02/19/20 02/19/20 17:27 00:46 00:46 Creatine Kinase 154 CK-MB (CK-2) 1.48 1.26 Troponin I 0.033 0.029 NT-Pro-B Natriuret Pep Impressions: Renal Ultrasound 02/18/20 09:10 IMPRESSION: 1. No hydronephrosis. 2. Left-sided renal cysts that measure up to 4.5 x 4.5 x 3.8 cm. 3. Pineda catheter within the contracted urinary bladder. Assessment & Plan - Diagnosis (1) Acute kidney injury Is this a current diagnosis for this admission?: Yes Plan: Patient required hemodialysis (2) Chronic combined systolic and diastolic heart failure Is this a current diagnosis for this admission?: Yes (3) Hyperkalemia Is this a current diagnosis for this admission?: Yes (4) Metabolic acidosis Is this a current diagnosis for this admission?: Yes (5) Hypotension Qualifiers: Hypotension type: unspecified hypotension type Qualified Code(s): I95.9 - Hypotension, unspecified Is this a current diagnosis for this admission?: Yes Plan: The blood pressure is improved (6) Left upper extremity swelling Is this a current diagnosis for this admission?: Yes Plan: order venous doppler - Time Time Spent with patient: 15-24 minutes Level of Care: CU
[2020-02-22 01:36] LABS: ARTERIAL BLOOD BASE EXCESS -6.8 mmol/L; ARTERIAL BLOOD FIO2 15L; ARTERIAL BLOOD H2CO3 0.77 mmol/L (1.05-1.35); ARTERIAL BLOOD HCO3 16.1 mmol/L (20-24); ARTERIAL BLOOD PCO2 25.5 mmHg (35-45); ARTERIAL BLOOD PH 7.42 (7.35-7.45); ARTERIAL BLOOD PO2 87.9 mmHg (80-100); ARTERIAL BLOOD TOTAL CO2 16.8 mmol/L (23-27)
[2020-02-22] MEDS: CALCIUM CARBONATE 600 MG TABLET PO SCH ×2 (11:13→18:58)
[2020-02-22] MEDS: CALCITRIOL 0.25 MCG CAPSULE PO SCH (11:13)
--- NOTE | 2020-02-22 12:50 | RADIOLOGY REPORT (SQ) ---
EXAM DESCRIPTION: CHEST SINGLE VIEW IMAGES COMPLETED DATE/TIME: 02/22/2020 11:24 am REASON FOR STUDY: HYPOXEMIA COMPARISON: 02/18/2020 EXAM PARAMETERS: NUMBER OF VIEWS: One view. TECHNIQUE: Single frontal radiographic view of the chest acquired. RADIATION DOSE: NA LIMITATIONS: None. FINDINGS: LUNGS AND PLEURA: Interval development of diffuse patchy alveolar opacities and confluent consolidation in both lungs, basilar predominant. Small bilateral pleural effusions. No pneumothora x. MEDIASTINUM AND HILAR STRUCTURES: No masses. Contour normal. HEART AND VASCULAR STRUCTURES: Heart normal in size. Normal vasculature. BONES: No acute findings. HARDWARE: Left infraclavicular AICD with intact lead wires unchanged. OTHER: No other significant finding. IMPRESSION: Interval development of diffuse patchy areas of consolidation in both lungs which may re present pulmonary edema. Superimposed infectious/ inflammatory process including viral pneumonitis i s not excluded. TECHNICAL DOCUMENTATION: JOB ID: [id number] 2010 [employer]- All Rights Reserved Reading location - IP/workstation name: [email or web address]
[2020-02-22 13:05] LABS: HEMATOCRIT 38.2 % (37.9-51.0); HEMOGLOBIN 12.5 g/dL (13.5-17.0); MEAN CORPUSCULAR HGB CONC 32.7 g/dL (32.0-36.0); MEAN CORPUSCULAR VOLUME 80 fl (80-97); PLATELET COUNT 109 10^3/uL (150-450); RED CELL DISTRIBUTION WIDTH 16.8 % (11.5-14.0); WHITE BLOOD COUNT 21.8 10^3/uL (4.0-10.5)
[2020-02-22 13:21] LABS: ABSOLUTE LYMPHOCYTES# (MANUAL) 0.4 10^3/uL (0.5-4.7); ABSOLUTE MONOCYTES # (MANUAL) 0.7 10^3/uL (0.1-1.4); BASOPHILS % (MANUAL) 0 % (0-2); EOSINOPHILS % (MANUAL) 0 % (0-6); LYMPHOCYTES % (MANUAL) 2 % (13-45); MONOCYTES % (MANUAL) 3 % (3-13); SEGMENTED NEUTROPHILS % (MAN) 95 % (42-78); TOTAL CELLS COUNTED 100
[2020-02-22 13:23] LABS: ANISOCYTOSIS 1+; BURR CELLS 2+; HYPOCHROMASIA SLIGHT; OVALOCYTES 1+; PLATELET COMMENT DECREASED; POIKILOCYTOSIS 2+
[2020-02-22] MEDS: AMPICILLIN SODIUM/SULBACTAM NA 1.5 GM in NORMAL SALINE 50 ML IV SCH (15:46)
[2020-02-22] MEDS ORDERED: NORMAL SALINE 250 ML with FUROSEMIDE 250 MG IV PRN ×2 (16:32)
--- NOTE | 2020-02-22 16:43 | PDOC PROGRESS REPORT ---
Subjective Progress Note for:: 02/22/20 Subjective:: Patient requires high volume oxygen, he developed acute kidney failure requiring acute hemodialysis, minimal amount of fluid was removed, he also enlarged left upper extremity? DVT. A stat chest x-ray showed interval development of diffuse patchy alveolar opacities and confluent oxidation in both lungs no pneumothorax, this could represent pulmonary edema, superimposed infection cannot rule out Reason For Visit: ACUTE KIDNEY INJURY,HYPOTENSION,SHOCK LIVER,SEPSIS Physical Exam Vital Signs: Temp Pulse Resp BP Pulse Ox 98.2 F 86 26 H 112/76 94 02/22/20 11:15 02/22/20 11:15 02/22/20 12:30 02/22/20 11:15 02/22/20 12:30 Intake & Output 02/21/20 02/22/20 02/23/20 06:59 06:59 06:59 Intake Total 3647 200 Output Total 350 760 Balance 3297 -560 Weight 74.9 kg Head exam: PRESENT: other - alert Respiratory exam: PRESENT: crackles Cardiovascular exam: PRESENT: +S1, +S2 GI/Abdominal exam: PRESENT: soft Results Laboratory Results: 02/22/20 12:53 02/21/20 04:38 02/22/20 02/22/20 00:10 12:53 WBC 21.8 H RBC 4.80 Hgb 12.5 L Hct 38.2 MCV 80 MCH 26.0 L MCHC 32.7 RDW 16.8 H Plt Count 109 L Seg Neutrophils % Not Reportable Carbonic Acid 0.77 L HCO3/H2CO3 Ratio 20:1 ABG pH 7.42 ABG pCO2 25.5 L ABG pO2 87.9 ABG HCO3 16.1 L ABG O2 Saturation 97.0 ABG Base Excess -6.8 FiO2 15L 02/18/20 02/18/20 02/18/20 07:33 07:33 07:33 Creatine Kinase 187 H CK-MB (CK-2) Troponin I 0.032 NT-Pro-B Natriuret Pep 2760 H 02/18/20 02/18/20 02/18/20 14:19 14:19 17:27 Creatine Kinase 163 186 H CK-MB (CK-2) 1.63 Troponin I 0.028 NT-Pro-B Natriuret Pep 02/18/20 02/19/20 02/19/20 17:27 00:46 00:46 Creatine Kinase 154 CK-MB (CK-2) 1.48 1.26 Troponin I 0.033 0.029 NT-Pro-B Natriuret Pep Impressions: Renal Ultrasound 02/18/20 09:10 IMPRESSION: 1. No hydronephrosis. 2. Left-sided renal cysts that measure up to 4.5 x 4.5 x 3.8 cm. 3. Pineda catheter within the contracted urinary bladder. Chest X-Ray 02/22/20 00:00 IMPRESSION: Interval development of diffuse patchy areas of consolidation in both lungs which may represent pulmonary edema. Superimposed infectious/ inflammatory process including viral pneumonitis is not excluded. Assessment & Plan - Diagnosis (1) Acute kidney injury Is this a current diagnosis for this admission?: Yes Plan: He has oliguric acute kidney injury, patient on Lasix infusion to initiate diuresis (2) Chronic combined systolic and diastolic heart failure Is this a current diagnosis for this admission?: Yes (3) Hyperkalemia Is this a current diagnosis for this admission?: Yes (4) Metabolic acidosis Is this a current diagnosis for this admission?: Yes (5) Hypotension Qualifiers: Hypotension type: unspecified hypotension type Qualified Code(s): I95.9 - Hypotension, unspecified Is this a current diagnosis for this admission?: Yes (6) Acute hypoxemic respiratory failure Is this a current diagnosis for this admission?: Yes Plan: Acute hypoxemic respiratory failure, differential diagnosis include acute pulmon jermaine edema, pneumonia, volume overload, plan start Lasix infusion, patient already on ampicillin, there is leukocytosis suggesting this could be infection, patient required noninvasive positive pressure ventilation with BiPAP (7) Pneumonia Qualifiers: Pneumonia type: due to unspecified organism Lung location: unspecified part of lung Is this a current diagnosis for this admission?: Yes Plan: Start Zyvox to cover MRSA, continue Unasyn,Rule out COVID-19 - Time Time Spent with patient: 35 or more minutes Level of Care: IMCU Medications reviewed and adjusted accordingly: Yes
--- NOTE | 2020-02-22 17:10 | RADIOLOGY REPORT (SQ) ---
EXAM DESCRIPTION: VENOUS UNILATERAL UPPER IMAGES COMPLETED DATE/TIME: 02/22/2020 4:52 pm REASON FOR STUDY: LUE Edema COMPARISON: None. TECHNIQUE: Dynamic and static nunez scale and color images acquired of the left arm venous system. Se lected spectral images acquired with additional compression and augmentation maneuvers. The contralat eral subclavian vein and internal jugular vein were also imaged. Images stored on PACS. LIMITATIONS: None. FINDINGS: INTERNAL JUGULAR VEIN: Normal phasicity, compression, augmentation. No visualized echogeni c material on nunez scale. No defects on color images. Comparison opposite side normal. SUBCLAVIAN VEIN: Normal compression, augmentation. No visualized echogenic material on nunez scale. No defects on color images. AXILLARY VEIN: Normal compression, augmentation. No visualized echogenic material on nunez scale. No d efects on color images. BRACHIAL VEIN: Normal compression, augmentation. No visualized echogenic material on nunez scale. No d efects on color images. BASILIC VEIN: Acute/ subacute DVT. Antecubital fossa. CEPHALIC VEIN: Acute/ subacute DVT. Wrist to the antecubital fossa. OTHER: No other significant finding. CONTRALATERAL SUBCLAVIAN VEIN AND INTERNAL JUGULAR VEIN: Not performed IMPRESSION: No acute DVT. Acute/subacute SVT of the cephalic and basilic veins. TECHNICAL DOCUMENTATION: JOB ID: [id number] 2010 [employer]- All Rights Reserved Reading location - IP/workstation name: [email or web address]
[2020-02-22] MEDS ORDERED: AMPICILLIN SOD/SULBACTAM 1.5 GM VIAL IV PRN (17:14)
[2020-02-22] MEDS ORDERED: FUROSEMIDE INJ/PF 100 MG/10 ML SDV ONE (18:19)
[2020-02-22] MEDS: LINEZOLID 600 MG/300 ML RTUPB IV SCH (19:28)
[2020-02-22] MEDS ORDERED: LINEZOLID IV ONE (19:31)
[2020-02-22] MEDS: HEPARIN SOD (PORCINE) 5,000 UNIT/ML 1 ML VIAL SUBCUT SCH (21:38)
[2020-02-23] MEDS: AMPICILLIN SODIUM/SULBACTAM NA 1.5 GM in NORMAL SALINE 50 ML IV SCH ×5 (00:17→20:49)
[2020-02-23 00:23] LABS: ALBUMIN 1.8 g/dL (3.5-5.0); ALKALINE PHOSPHATASE 75 U/L (38-126); ANION GAP 11 (5-19); ASPARTATE AMINO TRANSFERASE 170 U/L (17-59); BILIRUBIN,DIRECT 2.5 mg/dL (0.0-0.4); BILIRUBIN,TOTAL 3.2 mg/dL (0.2-1.3); BLOOD UREA NITROGEN 61 mg/dL (7-20); CALCIUM 7.5 mg/dL (8.4-10.2); CARBON DIOXIDE 19 mmol/L (22-30); CHLORIDE 105 mmol/L (98-107); GLUCOSE 104 mg/dL (75-110); POTASSIUM 3.8 mmol/L (3.6-5.0); TOTAL PROTEIN 4.9 g/dL (6.3-8.2)
[2020-02-23] MEDS: LINEZOLID 600 MG/300 ML RTUPB IV SCH ×2 (06:02→18:47)
[2020-02-23] MEDS: HEPARIN SOD (PORCINE) 5,000 UNIT/ML 1 ML VIAL SUBCUT SCH ×3 (06:05→22:11)
[2020-02-23] MEDS: CALCIUM CARBONATE 600 MG TABLET PO SCH ×2 (11:39→18:47)
[2020-02-23] MEDS: CALCITRIOL 0.25 MCG CAPSULE PO SCH (11:39)
[2020-02-23] MEDS: IPRATROPIUM/ALBUTEROL 0.5-2.5 MG/3 ML AMPUL NEB PRN (12:45)
--- NOTE | 2020-02-23 18:53 | PDOC PROGRESS REPORT ---
Subjective Progress Note for:: 02/23/20 Subjective:: Patient seen by the bedside, he continues to require noninvasive positive pressure ventilation, BiPAP, on Lasix infusion, The urinary output is minimal, scheduled for dialysis tomorrow, and acute hemodialysis was started on Monday. Reason For Visit: ACUTE KIDNEY INJURY,HYPOTENSION,SHOCK LIVER,SEPSIS Physical Exam Vital Signs: Temp Pulse Resp BP Pulse Ox 98.3 F 81 25 H 95/63 L 91 L 02/23/20 14:56 02/23/20 16:03 02/23/20 16:03 02/23/20 14:56 02/23/20 16:03 Intake & Output 02/22/20 02/23/20 02/24/20 06:59 06:59 06:59 Intake Total 200 400 350 Output Total 760 250 125 Balance -560 150 225 Weight 74.9 kg 72.3 kg General appearance: PRESENT: other - Patient is alert on BiPAP Eye exam: PRESENT: PERRLA Respiratory exam: PRESENT: rhonchi, wheezes Cardiovascular exam: PRESENT: +S1, +S2, systolic murmur GI/Abdominal exam: PRESENT: soft Extremities exam: PRESENT: other - Left upper extremity swelling Results Laboratory Results: 02/22/20 12:53 02/22/20 23:35 02/22/20 23:35 Sodium 134.7 L Potassium 3.8 Chloride 105 Carbon Dioxide 19 L Anion Gap 11 BUN 61 H Creatinine 8.46 H Est GFR ( Amer) 7 L Glucose 104 Calcium 7.5 L Total Bilirubin 3.2 H AST 170 H Alkaline Phosphatase 75 Total Protein 4.9 L Albumin 1.8 L 02/18/20 15:25 Blood Blood Culture - Final NO GROWTH IN 5 DAYS 02/18/20 15:59 Blood Blood Culture - Final NO GROWTH IN 5 DAYS 02/18/20 07:53 Blood Blood Culture - Final NO GROWTH IN 5 DAYS 02/18/20 07:33 Blood Blood Culture - Final NO GROWTH IN 5 DAYS 02/18/20 02/18/20 02/18/20 07:33 07:33 07:33 Creatine Kinase 187 H CK-MB (CK-2) Troponin I 0.032 NT-Pro-B Natriuret Pep 2760 H 02/18/20 02/18/20 02/18/20 14:19 14:19 17:27 Creatine Kinase 163 186 H CK-MB (CK-2) 1.63 Troponin I 0.028 NT-Pro-B Natriuret Pep 02/18/20 02/19/20 02/19/20 17:27 00:46 00:46 Creatine Kinase 154 CK-MB (CK-2) 1.48 1.26 Troponin I 0.033 0.029 NT-Pro-B Natriuret Pep Impressions: Renal Ultrasound 02/18/20 09:10 IMPRESSION: 1. No hydronephrosis. 2. Left-sided renal cysts that measure up to 4.5 x 4.5 x 3.8 cm. 3. Pineda catheter within the contracted urinary bladder. Chest X-Ray 02/22/20 00:00 IMPRESSION: Interval development of diffuse patchy areas of consolidation in both lungs which may represent pulmonary edema. Superimposed infectious/ inflammatory process including viral pneumonitis is not excluded. Venous Doppler Study 02/22/20 00:00 IMPRESSION: No acute DVT. Acute/subacute SVT of the cephalic and basilic veins. Assessment & Plan - Diagnosis (1) Acute kidney injury Is this a current diagnosis for this admission?: Yes (2) Chronic combined systolic and diastolic heart failure Is this a current diagnosis for this admission?: Yes (3) Hyperkalemia Is this a current diagnosis for this admission?: Yes (4) Metabolic acidosis Is this a current diagnosis for this admission?: Yes (5) Hypotension Qualifiers: Hypotension type: unspecified hypotension type Qualified Code(s): I95.9 - Hypotension, unspecified Is this a current diagnosis for this admission?: Yes (6) Acute hypoxemic respiratory failure Is this a current diagnosis for this admission?: Yes Plan: This is probably volume versus pneumonia, minimal urinary output, continue BiPAP, scheduled for dialysis tomorrow, continue Lasix drip increase infusion rate, Patient is a DNR does not want mechanical ventilation (7) Pneumonia Qualifiers: Pneumonia type: due to unspecified organism Lung location: unspecified part of lung Is this a current diagnosis for this admission?: Yes (8) Acute embolism from left basilic vein Is this a current diagnosis for this admission?: Yes Plan: Continue subcu heparin - Time Time Spent with patient: 35 or more minutes Level of Care: IMCU
[2020-02-23] MEDS: NORMAL SALINE 250 ML with FUROSEMIDE 250 MG IV PRN ×2 (19:21)
[2020-02-23] MEDS: MORPHINE SULFATE 10 MG/ML INJ IV PRN (23:52)
[2020-02-24] MEDS: MORPHINE SULFATE 10 MG/ML INJ IV PRN (03:41)
[2020-02-24] MEDS: AMPICILLIN SODIUM/SULBACTAM NA 1.5 GM in NORMAL SALINE 50 ML IV SCH ×2 (03:44→10:45)
[2020-02-24] MEDS: HEPARIN SOD (PORCINE) 5,000 UNIT/ML 1 ML VIAL SUBCUT SCH ×3 (05:23→21:29)
[2020-02-24] MEDS: LINEZOLID 600 MG/300 ML RTUPB IV SCH ×2 (05:37→17:03)
[2020-02-24 05:49] LABS: HEMATOCRIT 31.7 % (37.9-51.0); HEMOGLOBIN 10.9 g/dL (13.5-17.0); MEAN CORPUSCULAR HGB CONC 34.4 g/dL (32.0-36.0); MEAN CORPUSCULAR VOLUME 79 fl (80-97); PLATELET COUNT 103 10^3/uL (150-450); RED BLOOD COUNT 4.04 10^6/uL (4.35-5.55); RED CELL DISTRIBUTION WIDTH 16.1 % (11.5-14.0); WHITE BLOOD COUNT 8.9 10^3/uL (4.0-10.5)
[2020-02-24 06:07] LABS: ANION GAP 11 (5-19); BLOOD UREA NITROGEN 70 mg/dL (7-20); CALCIUM 7.4 mg/dL (8.4-10.2); CARBON DIOXIDE 19 mmol/L (22-30); CHLORIDE 107 mmol/L (98-107); POTASSIUM 4.1 mmol/L (3.6-5.0)
[2020-02-24 06:33] LABS: ABSOLUTE MONOCYTES # (MANUAL) 0.5 10^3/uL (0.1-1.4); BASOPHILS % (MANUAL) 0 % (0-2); EOSINOPHILS % (MANUAL) 0 % (0-6); LYMPHOCYTES % (MANUAL) 0 % (13-45); MONOCYTES % (MANUAL) 6 % (3-13); SEGMENTED NEUTROPHILS % (MAN) 94 % (42-78); TOTAL CELLS COUNTED 100
[2020-02-24 06:34] LABS: ANISOCYTOSIS 2+; OVALOCYTES SLIGHT; PLATELET COMMENT DECREASED; POIKILOCYTOSIS 1+; TARGET CELLS 1+
[2020-02-24 06:46] LABS: GLUCOSE 43 mg/dL (75-110)
[2020-02-24] MEDS: IPRATROPIUM/ALBUTEROL 0.5-2.5 MG/3 ML AMPUL NEB PRN ×2 (08:31→20:03)
[2020-02-24] MEDS ORDERED: HEPARIN SOD (PORCINE) 1,000 UNIT/ML 10 ML VIAL IV PRN (10:39)
[2020-02-24] MEDS ORDERED: NORMAL SALINE 1000 ML 1,000 ML IV PRN (10:39)
[2020-02-24] MEDS: CALCIUM CARBONATE 600 MG TABLET PO SCH ×2 (10:45→17:11)
[2020-02-24] MEDS: CALCITRIOL 0.25 MCG CAPSULE PO SCH (10:45)
[2020-02-24] MEDS: ALBUMIN HUMAN 12.5 GM/50 ML RTUINJ IV SCH ×4 (11:34→13:47)
--- NOTE | 2020-02-24 15:37 | CRITICAL CARE ADMISSION REPORT ---
HPI Date:: 02/24/20 Time:: 14:28 Reason for ICU Reason:: Hypotension; hemodialysis HPI: This 79-year-old -[place] male reformed smoker is seen in consultation at the request of Dr. Molina for recommendations on further evaluation and management of hypotension. The patient is transferred to the ICU for hemodialysis. He was hospitalized on 02/18/2020 with altered mental status and decreased urinary output. Initial ER evaluation revealed acute (on CKD stage III) kidney injury, BUN 87, creatinine 11.9. He is known to have congestive heart failure and was admitted for treatment of CHF exacerbation. 2D echo (02/18/2020) was a technically suboptimal study, offering very little information for interpretation. The time of clinical interview, the patient has been placed on BiPAP 08/05, FiO2 100%. SPO2 100%. He is noted to be hypotensive at the beginning of his hemodialysis session. I was contacted by Dr. Molina with concerns about hypotension and feasibility of his hemodialysis run. History obtained from:: Patient; Dr. Molina - Diagnosis/Plan (1) Acute hypoxemic respiratory failure Is this a current diagnosis for this admission?: Yes Plan: CPAP 6. Wean FiO2 as tolerated to maintain SpO2 93+% (2) Acute kidney injury superimposed on CKD Is this a current diagnosis for this admission?: Yes (3) Hypotension Qualifiers: Hypotension type: unspecified hypotension type Qualified Code(s): I95.9 - Hypotension, unspecified Is this a current diagnosis for this admission?: Yes Plan: This appears to actually be improving as the hemodialysis session progresses. Also, the patient demonstrates no need for ventilatory assistance. Consequently, BiPAP is not indicated. CPAP would be better tolerated. (4) Microcytic anemia Is this a current diagnosis for this admission?: Yes (5) Thrombocytopenia Is this a current diagnosis for this admission?: Yes (6) Chronic combined systolic and diastolic heart failure Is this a current diagnosis for this admission?: Yes (7) Elevated liver enzymes Is this a current diagnosis for this admission?: Yes Plan: HBsAg negative. atnti-HBs antibody low. anti-HBc POSITIVE. (8) COVID-19 ruled out by laboratory testing Is this a current diagnosis for this admission?: Yes Plan Summary: Monitor hemodynamics closely. Stop BiPAP. CPAP 6. Titrate FiO2 as tolerated to maintain SpO2 93+%. Will initiate vasopressor support, if needed. Not needed at this time. If the patient does not need vasopressor support, there is no indication to keep this patient in the ICU at the conclusion of his hemodialysis session. Past Medical History Cardiac Medical History: Reports: Atrial Fibrillation, Congestive Heart Failure, Myocardial Infarction, Hyperlipidema, Hypertension, Peripheral Vascular Disease Psychiatric Medical History: Reports: Depression Past Surgical History Past Surgical History: Reports: Cardiac Catheterization, Coronary Artery Bypass Graft, Vascular Surgery - Left AKA, Other - Status post amputation left lower extremity. Social/Family History - Social History Smoking Status: Former Smoker Frequency of Alcohol Use: None Hx Recreational Drug Use: No Drugs: None Hx Prescription Drug Abuse: No - Medication/Allergies Home Medications: Amiodarone HCl [Cordarone 200 mg Tablet] 200 mg PO BID 06/11/19 Apixaban [Eliquis 5 mg Tablet] 5 mg PO Q12 06/11/19 Atorvastatin Calcium [Lipitor 40 mg Tablet] 40 mg PO QHS 06/11/19 Lansoprazole [Prevacid] 30 mg PO DAILY 06/11/19 Tamsulosin HCl [Flomax 0.4 mg Cap.sr] 0.4 mg PO QPM 06/11/19 Carvedilol [Coreg 3.125 mg Tablet] 3.125 mg PO Q12 #[id number] tablet 07/01/19 Sacubitril/Valsartan [Entresto 24 mg/26 mg Tablet] 1 tab PO BID tablet 07/01/19 Acetaminophen 500 mg PO Q6HP PRN 02/18/20 Bisacodyl [Dulcolax 10 mg Supp.rect] 10 mg MT Q36H PRN 02/18/20 Carboxymethylcellulose Sodium [Refresh Tears] 1 drop OP QID 02/18/20 Magnesium Hydroxide [Milk of Magnesia 30 ml Udcup] 30 ml PO Q36H PRN 02/18/20 Nitroglycerin [Nitrostat 0.4 mg (1/150 Gr) Tabs 25/Bottle] 1 tab SL Q5MP PRN 02/18/20 Promethazine HCl [Phenergan Inj 25 mg/1 ml Vial] 25 mg IM Q4HP PRN 02/18/20 Sennosides/Docusate Sodium [Senna-S 8.6-50 mg Tablet] 1 each PO QHS 02/18/20 Tramadol HCl [Ultram 50 mg Tablet] 50 mg PO Q8HP PRN 02/18/20 Allergies/Adverse Reactions: No Known Allergies Allergy (Verified 12/25/19 11:23) Review of Systems Constitutional: ABSENT: chills, fever(s), headache(s), weight gain, weight loss Eyes: ABSENT: visual disturbances Cardiovascular: ABSENT: chest pain, dyspnea on exertion, edema, orthropnea, palpitations Respiratory: ABSENT: cough, hemoptysis Gastrointestinal: ABSENT: abdominal pain, constipation, diarrhea, hematemesis, hematochezia, nausea, vomiting Musculoskeletal: ABSENT: joint swelling Neurological: ABSENT: abnormal gait, abnormal speech, confusion, dizziness, focal weakness, syncope Psychiatric: ABSENT: anxiety, depression, homidical ideation, suicidal ideation Physical Exam Vital Signs: Temp Pulse Resp BP Pulse Ox 98.2 F 80 30 H 93/61 L 100 02/24/20 14:22 02/24/20 14:22 02/24/20 14:22 02/24/20 14:22 02/24/20 14:22 Intake & Output 02/23/20 02/24/20 02/25/20 06:59 06:59 06:59 Intake Total 400 1150 657 Output Total 250 775 250 Balance 150 375 407 Weight 72.3 kg 72.1 kg Weight/Height Weight 72.1 kg Height 1.52 m General appearance: PRESENT: no acute distress, well-developed, well-nourished Head exam: PRESENT: atraumatic, normocephalic Eye exam: PRESENT: conjunctiva pink, EOMI, PERRLA. ABSENT: scleral icterus Mouth exam: PRESENT: moist, tongue midline Neck exam: ABSENT: carotid bruit, JVD, lymphadenopathy, thyromegaly Respiratory exam: PRESENT: crackles. ABSENT: rales, rhonchi, wheezes Cardiovascular exam: PRESENT: RRR. ABSENT: diastolic murmur, rubs, systolic murmur Pulses: PRESENT: normal dorsalis pedis pul GI/Abdominal exam: PRESENT: normal bowel sounds, soft. ABSENT: distended, guarding, mass, organolmegaly, rebound, tenderness Extremities exam: PRESENT: full ROM, pedal edema, +2 edema. ABSENT: calf tenderness, clubbing Neurological exam: PRESENT: alert, awake, oriented to person, oriented to place, oriented to time, oriented to situation, CN II-XII grossly intact. ABSENT: motor sensory deficit Skin exam: PRESENT: dry, intact, warm. ABSENT: cyanosis, rash Tubes/Lines: PRESENT: Dialysis catheter Laboratory/Radiographs Laboratory Results: 02/24/20 04:53 02/24/20 04:53 02/24/20 02/24/20 04:53 04:53 WBC 8.9 RBC 4.04 L Hgb 10.9 L Hct 31.7 L MCV 79 L MCH 27.0 MCHC 34.4 RDW 16.1 H Plt Count 103 L Seg Neutrophils % Not Reportable Sodium 136.8 L Potassium 4.1 Chloride 107 Carbon Dioxide 19 L Anion Gap 11 BUN 70 H Creatinine 8.74 H Est GFR ( Amer) 7 L Glucose 43 L Calcium 7.4 L 02/18/20 15:25 Blood Blood Culture - Final NO GROWTH IN 5 DAYS 02/18/20 15:59 Blood Blood Culture - Final NO GROWTH IN 5 DAYS 02/18/20 02/18/20 02/18/20 07:33 07:33 07:33 Creatine Kinase 187 H CK-MB (CK-2) Troponin I 0.032 NT-Pro-B Natriuret Pep 2760 H 02/18/20 02/18/20 02/18/20 14:19 14:19 17:27 Creatine Kinase 163 186 H CK-MB (CK-2) 1.63 Troponin I 0.028 NT-Pro-B Natriuret Pep 02/18/20 02/19/20 02/19/20 17:27 00:46 00:46 Creatine Kinase 154 CK-MB (CK-2) 1.48 1.26 Troponin I 0.033 0.029 NT-Pro-B Natriuret Pep Impressions: Renal Ultrasound 02/18/20 09:10 IMPRESSION: 1. No hydronephrosis. 2. Left-sided renal cysts that measure up to 4.5 x 4.5 x 3.8 cm. 3. Pineda catheter within the contracted urinary bladder. Chest X-Ray 02/22/20 00:00 IMPRESSION: Interval development of diffuse patchy areas of consolidation in both lungs which may represent pulmonary edema. Superimposed infectious/ inflammatory process including viral pneumonitis is not excluded. Venous Doppler Study 02/22/20 00:00 IMPRESSION: No acute DVT. Acute/subacute SVT of the cephalic and basilic v eins. All labs, radiographs, diagnostic studies and EKGs were personally reviewed: Yes In addition, reports of radiographic and diagnostic studies were read: Yes Critical Time Critical Time (minutes): 45 -: The care of a critically ill patient is dynamic. This note represents a static moment in the admission process. Orders and treatments may be given simultaneously and urgently, and time is not business process representative of the treatment process. This patient requires Critical Care secondary to life threatening organ or limb dysfunction. Without Critical Care services, the patient is at risk for increased mortality and morbidity.
[2020-02-24] MEDS: NORMAL SALINE 250 ML with FUROSEMIDE 250 MG IV PRN ×2 (17:03)
[2020-02-24] MEDS: PHARMACY COMMUNICATION ORDER MC SCH (17:11)
--- NOTE | 2020-02-24 19:03 | PDOC PROGRESS REPORT ---
Subjective Progress Note for:: 02/24/20 Subjective:: Records reviewed. Patient has history of chronic kidney disease baseline stage III with baseline creatinine of 1.5-1.6 and EGFR under 56, peripheral vascular disease with bilateral above-knee amputations, combined systolic and diastolic congestive heart failure, atrial fibrillation with pacemaker on Eliquis. Patient was admitted for hypotension and hypothermia. He came in with creatinine of 11.95 associated with elevated potassium of 6.3, low bicarbonate of 15 and low calcium of 7.5. Patient was subsequently found to have urinary tract infection secondary to Enterococcus faecalis and E. coli. He was initially given IV fluids but did not respond. His echocardiogram was very limited showing mild pulmonary hypertension only. His initial renal ultrasound did not show hydronephrosis with the right kidney at 11 cm and left kidney at around 8.9 cm with left renal cysts. After failing to respond to IV fluid hydration with persistent oligo-anuria patient was initiated on intermittent hemodialysis last Monday via a trialysis catheter. Over the weekend the patient's respiratory status declined and he now requires BiPAP. When I saw him he is on 100% FiO2 on BiPAP. He is DNR and does not want mechanical ventilation. When I saw him this morning he was responding to questioning. He seems to be comfortable on the BiPAP this morning. He was also started on Lasix drip yesterday due to worsening pulmonary congestion on chest x-ray. He has made about 775 mL of urine output for the past 24 hours which is improved from around 200+ mL of urine output since admission. However his blood pressures been running a low around 85/49 when I saw him in the morning. His kidney function is not significantly improve aside from the effect of 1 dialysis treatment last Monday. I told the patient this morning that he is going to need dialysis treatment again but it needs to be done in the ICU since he is on BiPAP and is relatively hypotensive. Patient agreed to to undergo hemodialysis treatment. I saw the patient in the initiation of hemodialysis at around 1:16 PM this afternoon again. Patient remains to be awake and currently on BiPAP. His blood pressure is still low at 81/65 and ultrafiltration is been initially turned off due to that. I am even giving IV albumin to hopefully help also we can have some ultrafiltration but it does not seem to be working. I then talked to Dr. Molina to discuss the possibility of patient requiring pressor which would mean the patient would need to be in the ICU. Dr. Molina did talk to our headwaitress Dr. Peralta to evaluate the patient. Reason For Visit: ACUTE KIDNEY INJURY,HYPOTENSION,SHOCK LIVER,SEPSIS Physical Exam Vital Signs: Temp Pulse Resp BP Pulse Ox 97.4 F 85 31 H 85/49 L 77 L 02/24/20 08:03 02/24/20 08:34 02/24/20 08:34 02/24/20 08:03 02/24/20 08:34 Intake & Output 02/23/20 02/24/20 02/25/20 06:59 06:59 06:59 Intake Total 400 1150 Output Total 250 775 Balance 150 375 Weight 72.3 kg 72.1 kg Vitals during dialysis: Blood pressure 81/65, heart rate of 81, blood flow rate of 250 mL/min and dialysate flow rate of 600 mL/min. Exam: General appearance: PRESENT: Currently on BiPAP but awake and responding to simple questions. Head exam: PRESENT: atraumatic, normocephalic Eye exam: PRESENT: conjunctiva pale, PERRLA. ABSENT: scleral icterus Neck exam: ABSENT: JVD Respiratory exam: PRESENT: Diminished breath sounds. Positive expiratory wheezes and basal crackles Cardiovascular exam: PRESENT: Regular rate rhythm -+S1, +S2. ABSENT: diastolic murmur, systolic murmur GI/Abdominal exam: PRESENT: normal bowel sounds, soft. ABSENT: guarding, mass, tenderness Extremities exam: Left upper extremity edema and bilateral stump edema Neurological exam: PRESENT: Orientation unable to determine today with patient on BiPAP. Skin exam: PRESENT: dry, warm, Cardiovascular exam: PRESENT: +S1, +S2 GI/Abdominal exam: PRESENT: normal bowel sounds, soft. ABSENT: organomegaly, tenderness Results Laboratory Results: 02/24/20 04:53 02/24/20 04:53 02/24/20 02/24/20 04:53 04:53 WBC 8.9 RBC 4.04 L Hgb 10.9 L Hct 31.7 L MCV 79 L MCH 27.0 MCHC 34.4 RDW 16.1 H Plt Count 103 L Seg Neutrophils % Not Reportable Sodium 136.8 L Potassium 4.1 Chloride 107 Carbon Dioxide 19 L Anion Gap 11 BUN 70 H Creatinine 8.74 H Est GFR ( Amer) 7 L Glucose 43 L Calcium 7.4 L 02/18/20 15:25 Blood Blood Culture - Final NO GROWTH IN 5 DAYS 02/18/20 15:59 Blood Blood Culture - Final NO GROWTH IN 5 DAYS 02/18/20 07:53 Blood Blood Culture - Final NO GROWTH IN 5 DAYS 02/18/20 07:33 Blood Blood Culture - Final NO GROWTH IN 5 DAYS 02/18/20 02/18/20 02/18/20 07:33 07:33 07:33 Creatine Kinase 187 H CK-MB (CK-2) Troponin I 0.032 NT-Pro-B Natriuret Pep 2760 H 02/18/20 02/18/20 02/18/20 14:19 14:19 17:27 Creatine Kinase 163 186 H CK-MB (CK-2) 1.63 Troponin I 0.028 NT-Pro-B Natriuret Pep 02/18/20 02/19/20 02/19/20 17:27 00:46 00:46 Creatine Kinase 154 CK-MB (CK-2) 1.48 1.26 Troponin I 0.033 0.029 NT-Pro-B Natriuret Pep Impressions: Renal Ultrasound 02/18/20 09:10 IMPRESSION: 1. No hydronephrosis. 2. Left-sided renal cysts that measure up to 4.5 x 4.5 x 3.8 cm. 3. Pineda catheter within the contracted urinary bladder. Chest X-Ray 02/22/20 00:00 IMPRESSION: Interval development of diffuse patchy areas of consolidation in both lungs which may represent pulmonary edema. Superimposed infectious/ inflammatory process including viral pneumonitis is not excluded. Venous Doppler Study 02/22/20 00:00 IMPRESSION: No acute DVT. Acute/subacute SVT of the cephalic and basilic veins. Assessment & Plan - Diagnosis (1) Acute kidney injury superimposed on CKD Is this a current diagnosis for this admission?: Yes Plan: It is most likely secondary to acute onset of hypotension and possibly impending sepsis possibly causing ATN versus cardiorenal syndrome. By history the patient has combined systolic and diastolic congestive heart failure but not substantiated by current little very limited echocardiogram. CHF could also be a contributory factor. All the patient's urine output is slightly better with the Lasix drip, he continues to have elevated BUN and creatinine and clinical worsening pulmonary vascular congestion. The patient will need to have hemodialysis today. Patient consented to it. We will continue Lasix drip. We will do dialysis today for 2.5 hours, using the patient's trialysis catheter, with 3 potassium bath, blood flow rate of 250 mL per minute, dialysate flow rate of 600 mL per minute, ultrafiltration ~2.5 L if tolerated, no heparin and no Retacrit. Patient will be given IV albumin to help with ultrafiltration. Patient is being monitored very closely to see if he can do ultrafiltration. Price Accuracy Supervisor has been consulted to see what can be done to improve the blood pressure so that we can do ultrafiltration. (2) Acute hypoxemic respiratory failure Is this a current diagnosis for this admission?: Yes Plan: Patient is currently on BiPAP with maximum FiO2 of 100%. Patient opted not to be intubated. (3) Hypotension Qualifiers: Hypotension type: unspecified hypotension type Qualified Code(s): I95.9 - Hypotension, unspecified Is this a current diagnosis for this admission?: Yes Plan: Suspicious for developing sepsis possibly due to UTI with contributory effect of congestive heart failure. (4) UTI (urinary tract infection) due to Enterococcus Is this a current diagnosis for this admission?: Yes Plan: Also with E. coli. Currently on IV Unasyn and Zyvox. (5) Metabolic acidosis Is this a current diagnosis for this admission?: Yes Plan: Dialysis today. (6) Hypoalbuminemia Is this a current diagnosis for this admission?: Yes Plan: Moderate to severe. We will give IV albumin today prior to and during dialysis (7) Anemia Qualifiers: Anemia type: unspecified type Qualified Code(s): D64.9 - Anemia, unspecified Is this a current diagnosis for this admission?: Yes (8) Elevated liver enzymes Is this a current diagnosis for this admission?: Yes Plan: Patient was on amiodarone and atorvastatin upon presentation. He does not seem to have active hepatitis with only positive hepatitis B core antibody and negative hepatitis B surface antigen/antibody and hepatitis C virus antibody. Consider effect of hypotension. 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 Echocardiogram on February 17 was very limited. (10) Left upper extremity swelling Is this a current diagnosis for this admission?: Yes (11) Chronic atrial fibrillation Is this a current diagnosis for this admission?: Yes - Time Time with patient: 15-25 minutes
--- NOTE | 2020-02-24 20:53 | PDOC PROGRESS REPORT ---
Subjective Progress Note for:: 02/24/20 Subjective:: Patient seen by the bedside, he had hemodialysis today in the intensive care unit he had a low blood pressure, he required vasopressor, he was managed in ICU, I spoke with the seismology technical officer. Patient is a DNR status, presently requiring BiPAP to support his breathing, he has sepsis with pneumonia overall prognosis is guarded to poor Reason For Visit: ACUTE KIDNEY INJURY,HYPOTENSION,SHOCK LIVER,SEPSIS Physical Exam Vital Signs: Temp Pulse Resp BP Pulse Ox 98.0 F 91 33 H 104/66 100 02/24/20 19:44 02/24/20 19:44 02/24/20 19:44 02/24/20 19:44 02/24/20 19:44 Intake & Output 02/23/20 02/24/20 02/25/20 06:59 06:59 06:59 Intake Total 400 1150 1007 Output Total 114 464 4806 Balance 150 375 -2243 Weight 72.3 kg 72.1 kg General appearance: PRESENT: mild distress Eye exam: PRESENT: PERRLA Respiratory exam: PRESENT: decreased breath sounds Cardiovascular exam: PRESENT: +S1, +S2 GI/Abdominal exam: PRESENT: soft Neurological exam: PRESENT: alert Results Laboratory Results: 02/24/20 04:53 02/24/20 04:53 02/24/20 02/24/20 04:53 04:53 WBC 8.9 RBC 4.04 L Hgb 10.9 L Hct 31.7 L MCV 79 L MCH 27.0 MCHC 34.4 RDW 16.1 H Plt Count 103 L Seg Neutrophils % Not Reportable Sodium 136.8 L Potassium 4.1 Chloride 107 Carbon Dioxide 19 L Anion Gap 11 BUN 70 H Creatinine 8.74 H Est GFR ( Amer) 7 L Glucose 43 L Calcium 7.4 L 02/18/20 02/18/20 02/18/20 07:33 07:33 07:33 Creatine Kinase 187 H CK-MB (CK-2) Troponin I 0.032 NT-Pro-B Natriuret Pep 2760 H 02/18/20 02/18/20 02/18/20 14:19 14:19 17:27 Creatine Kinase 163 186 H CK-MB (CK-2) 1.63 Troponin I 0.028 NT-Pro-B Natriuret Pep 02/18/20 02/19/2020 17:27 00:46 00:46 Creatine Kinase 154 CK-MB (CK-2) 1.48 1.26 Troponin I 0.033 0.029 NT-Pro-B Natriuret Pep Impressions: Renal Ultrasound 02/18/20 09:10 IMPRESSION: 1. No hydronephrosis. 2. Left-sided renal cysts that measure up to 4.5 x 4.5 x 3.8 cm. 3. Pineda catheter within the contracted urinary bladder. Chest X-Ray 02/22/20 00:00 IMPRESSION: Interval development of diffuse patchy areas of consolidation in both lungs which may represent pulmonary edema. Superimposed infectious/ inflammatory process including viral pneumonitis is not excluded. Venous Doppler Study 02/22/20 00:00 IMPRESSION: No acute DVT. Acute/subacute SVT of the cephalic and basilic veins. Assessment & Plan - Diagnosis (1) Acute kidney injury Is this a current diagnosis for this admission?: Yes Plan: Patient on hemodialysis acutely the acute kidney injury is most likely from ATN due to sepsis low blood pressure. Continue Lasix drip (2) Chronic combined systolic and diastolic heart failure Is this a current diagnosis for this admission?: Yes Plan: Blood pressure is low, the Entresto beta-justo on hold (3) Hyperkalemia Is this a current diagnosis for this admission?: Yes (4) Metabolic acidosis Is this a current diagnosis for this admission?: Yes (5) Hypotension Qualifiers: Hypotension type: unspecified hypotension type Qualified Code(s): I95.9 - Hypotension, unspecified Is this a current diagnosis for this admission?: Yes (6) Acute hypoxemic respiratory failure Is this a current diagnosis for this admission?: Yes Plan: Continue BiPAP (7) Pneumonia Qualifiers: Pneumonia type: due to unspecified organism Lung location: unspecified part of lung Is this a current diagnosis for this admission?: Yes (8) Acute embolism from left basilic vein Is this a current diagnosis for this admission?: Yes - Time Time Spent with patient: 25-34 minutes Level of Care: [facility]
[2020-02-25] MEDS: MORPHINE SULFATE 10 MG/ML INJ IV PRN (00:40)
[2020-02-25] MEDS: LINEZOLID 600 MG/300 ML RTUPB IV SCH ×2 (05:15→18:15)
[2020-02-25] MEDS: HEPARIN SOD (PORCINE) 5,000 UNIT/ML 1 ML VIAL SUBCUT SCH ×3 (05:53→23:47)
[2020-02-25 06:15] LABS: ANION GAP 14 (5-19); BLOOD UREA NITROGEN 52 mg/dL (7-20); CARBON DIOXIDE 22 mmol/L (22-30); CHLORIDE 103 mmol/L (98-107); PHOSPHORUS 4.4 mg/dL (2.5-4.5)
[2020-02-25 06:19] LABS: GLUCOSE 49 mg/dL (75-110)
--- NOTE | 2020-02-25 09:15 | PDOC PROGRESS REPORT ---
Subjective Progress Note for:: 02/25/20 Subjective:: Records reviewed. Patient has history of chronic kidney disease baseline stage III with baseline creatinine of 1.5-1.6 and EGFR 56, peripheral vascular disease with bilateral above-knee amputations, combined systolic and diastolic congestive heart failure, atrial fibrillation with pacemaker on Eliquis. Patient was admitted for hypotension and hypothermia. He came in with creatinine of 11.95 associated with elevated potassium of 6.3, low bicarbonate of 15 and low calcium of 7.5. Patient was subsequently found to have urinary tract infection secondary to Enterococcus faecalis and E. coli. He was initially given IV fluids but did not respond. His echocardiogram was very limited showing mild pulmonary hypertension only. His initial renal ultrasound did not show hydronephrosis with the right kidney at 11 cm and left kidney at around 8.9 cm with left renal cysts. After failing to respond to IV fluid hydration with persistent oligo-anuria patient was initiated on intermittent hemodialysis last Monday, 02/20 via a trialysis catheter. Over the weekend the patient's respiratory status declined and he now requires BiPAP. He is DNR and does not want mechanical ventilation. Yesterday we took him down to ICU to do dialysis. Initially his blood pressure has been really low with systolic on the upper 70s to low 80s. After discussing with Dr. Molina we asked the oil well logging engineer, Dr. Peralta to evaluate the patient. He was changed from BiPAP to CPAP and the blood pressure actually improved without any pressor. We were able to get ultrafiltration of 2.6 L with acceptable blood pressure. Patient continues to be in CPAP and was transferred back here in [facility]. This morning the patient is lying comfortably on his bed. He denies any complaints. His blood pressure remains low but nothing below systolic blood pressure of 80. He is making some urine with urine output of 800 mL for the past 24 hours on Lasix drip. Reason For Visit: ACUTE KIDNEY INJURY,HYPOTENSION,SHOCK LIVER,SEPSIS Physical Exam Vital Signs: Temp Pulse Resp BP Pulse Ox 97.6 F 72 24 H 87/51 L 98 02/25/20 08:01 02/25/20 08:01 02/25/20 08:51 02/25/20 08:44 02/25/20 08:51 Intake & Output 02/24/20 02/25/20 02/26/20 06:59 06:59 06:59 Intake Total 1150 1307 Output Total 775 3400 Balance 375 -2093 Weight 72.1 kg 68.3 kg Exam: General appearance: PRESENT: On CPAP but awake and responding by nodding Head exam: PRESENT: atraumatic, normocephalic Eye exam: PRESENT: conjunctiva slightly pale, PERRLA. ABSENT: scleral icterus Neck exam: ABSENT: JVD Respiratory exam: PRESENT: Slightly coarse breath sounds. ABSENT: crackles, rales, rhonchi, unlabored, wheezes Cardiovascular exam: PRESENT: Regular rate rhythm -+S1, +S2. ABSENT: diastolic murmur, systolic murmur GI/Abdominal exam: PRESENT: normal bowel sounds, soft. ABSENT: guarding, mass, tenderness Extremities exam: Slightly better left upper extremity edema with grade 1 bilateral stump edema, bilateral AKA Neurological exam: PRESENT: alert, awake, limited response to questions. Skin exam: PRESENT: dry, warm, Cardiovascular exam: PRESENT: +S1, +S2 GI/Abdominal exam: PRESENT: normal bowel sounds, soft. ABSENT: organomegaly, tenderness Results Laboratory Results: 02/24/20 04:53 02/25/20 05:48 02/25/20 05:48 Sodium 138.5 Potassium 4.0 Chloride 103 Carbon Dioxide 22 Anion Gap 14 BUN 52 H Creatinine 6.36 H Est GFR ( Amer) 10 L Glucose 49 L Calcium 8.0 L Phosphorus 4.4 Magnesium 2.0 02/18/20 02/18/20 02/18/20 07:33 07:33 07:33 Creatine Kinase 187 H CK-MB (CK-2) Troponin I 0.032 NT-Pro-B Natriuret Pep 2760 H 02/18/20 02/18/20 02/18/20 14:19 14:19 17:27 Creatine Kinase 163 186 H CK-MB (CK-2) 1.63 Troponin I 0.028 NT-Pro-B Natriuret Pep 02/18/20 02/19/20 02/19/20 17:27 00:46 00:46 Creatine Kinase 154 CK-MB (CK-2) 1.48 1.26 Troponin I 0.033 0.029 NT-Pro-B Natriuret Pep Impressions: Renal Ultrasound 02/18/20 09:10 IMPRESSION: 1. No hydronephrosis. 2. Left-sided renal cysts that measure up to 4.5 x 4.5 x 3.8 cm. 3. Pineda catheter within the contracted urinary bladder. Chest X-Ray 02/22/20 00:00 IMPRESSION: Interval development of diffuse patchy areas of consolidation in both lungs which may represent pulmonary edema. Superimposed infectious/ inflammatory process including viral pneumonitis is not excluded. Venous Doppler Study 02/22/20 00:00 IMPRESSION: No acute DVT. Acute/subacute SVT of the cephalic and basilic veins. Assessment & Plan - Diagnosis (1) Acute kidney injury superimposed on CKD Is this a current diagnosis for this admission?: Yes Plan: It is most likely secondary to acute onset of hypotension and possibly impending sepsis possibly causing ATN versus cardiorenal syndrome. By history the patient has combined systolic and diastolic congestive heart failure but not substantiated by current little very limited echocardiogram. CHF could also be a contributory factor. All the patient's urine output is slightly better with the Lasix drip, he continues to have elevated BUN and creatinine and clinical worsening pulmonary vascular congestion. His clinical feature is very much consistent with advanced chronic kidney disease no although his baseline is just around stage III in 2019. We will continue Lasix drip. No indication for dialysis today. I will reevaluate again tomorrow. (2) Acute hypoxemic respiratory failure Is this a current diagnosis for this admission?: Yes Plan: Patient is currently on CPAP with maximum FiO2 of 100%. Patient opted not to be intubated. Patient had pulmonary vascular congestion on last chest x-ray on February 21. I will repeat chest x-ray portable today. (3) Hypotension Qualifiers: Hypotension type: unspecified hypotension type Qualified Code(s): I95.9 - Hypotension, unspecified Is this a current diagnosis for this admission?: Yes Plan: Suspicious for developing sepsis possibly due to UTI with contributory effect of congestive heart failure. Dr. Molina is starting the patient on dopamine drip which is a good idea. (4) UTI (urinary tract infection) due to Enterococcus Is this a current diagnosis for this admission?: Yes Plan: Also with E. coli. Currently on IV Unasyn and Zyvox. (5) Metabolic acidosis Is this a current diagnosis for this admission?: Yes Plan: Improved with dialysis. (6) Hypoalbuminemia Is this a current diagnosis for this admission?: Yes Plan: Given 50 g of IV albumin yesterday. (7) Anemia Qualifiers: Anemia type: unspecified type Qualified Code(s): D64.9 - Anemia, unspecified Is this a current diagnosis for this admission?: Yes (8) Elevated liver enzymes Is this a current diagnosis for this admission?: Yes Plan: Patient was on amiodarone and atorvastatin upon presentation. He does not seem to have active hepatitis with only positive hepatitis B core antibody and negative hepatitis B surface antigen/antibody and hepatitis C virus antibody. Consider effect of hypotension. 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 Echocardiogram on February 17 was very limited. (10) Superficial venous thrombosis of left arm Is this a current diagnosis for this admission?: Yes Plan: Not on any anticoagulation with current thrombocytopenia. (11) Chronic atrial fibrillation Is this a current diagnosis for this admission?: Yes - Time Time with patient: 15-25 minutes
[2020-02-25] MEDS ORDERED: DOPAMINE HCL/DEXTROSE 5%-WATER 800 MG/250 ML RTUINJ IV PRN (09:23)
[2020-02-25] MEDS: CALCIUM CARBONATE 600 MG TABLET PO SCH ×2 (09:35→18:03)
[2020-02-25] MEDS: CALCITRIOL 0.25 MCG CAPSULE PO SCH (09:35)
--- NOTE | 2020-02-25 10:27 | RADIOLOGY REPORT (SQ) ---
EXAM DESCRIPTION: CHEST SINGLE VIEW IMAGES COMPLETED DATE/TIME: 02/25/2020 10:01 am REASON FOR STUDY: SOB COMPARISON: 02/22/2020. EXAM PARAMETERS: NUMBER OF VIEWS: One view. TECHNIQUE: Single frontal radiographic view of the chest acquired. RADIATION DOSE: NA LIMITATIONS: None. FINDINGS: LUNGS AND PLEURA: Diffuse airspace disease throughout both lungs. 2 cm left apical pneumo thorax. MEDIASTINUM AND HILAR STRUCTURES: No masses. Contour normal. HEART AND VASCULAR STRUCTURES: Cardiomegaly. BONES: No acute findings. HARDWARE: Defibrillator. OTHER: No other significant finding. IMPRESSION: CARDIOMEGALY AND DIFFUSE AIRSPACE DISEASE THROUGHOUT BOTH LUNGS, UNCHANGED. INTERVAL DE VELOPMENT OF A LEFT APICAL PNEUMOTHORAX. TECHNICAL DOCUMENTATION: JOB ID: [id number] 2010 [employer]- All Rights Reserved Reading location - IP/workstation name: [email or web address]
--- NOTE | 2020-02-25 15:24 | RADIOLOGY REPORT (SQ) ---
EXAM DESCRIPTION: CHEST 2 VIEWS IMAGES COMPLETED DATE/TIME: 02/25/2020 2:40 pm REASON FOR STUDY: pneumothorax COMPARISON: 02/25/2020. EXAM PARAMETERS: NUMBER OF VIEWS: two views TECHNIQUE: Digital Frontal and Lateral radiographic views of the chest acquired. RADIATION DOSE: NA LIMITATIONS: none FINDINGS: LUNGS AND PLEURA: Diffuse airspace disease unchanged. Left apical pneumothorax unchanged. MEDIASTINUM AND HILAR STRUCTURES: No masses or contour abnormalities. HEART AND VASCULAR STRUCTURES: Cardiomegaly. BONES: No acute findings. HARDWARE: Defibrillator. OTHER: No other significant finding. IMPRESSION: NO SIGNIFICANT INTERVAL CHANGE. NO CHANGE IN THE LEFT APICAL PNEUMOTHORAX. NO CHANGE I N DIFFUSE BILATERAL AIRSPACE DISEASE. TECHNICAL DOCUMENTATION: JOB ID: [id number] 2010 [employer]- All Rights Reserved Reading location - IP/workstation name: [email or web address]
[2020-02-25 15:26] LABS: HEMATOCRIT 29.7 % (37.9-51.0); HEMOGLOBIN 9.9 g/dL (13.5-17.0); MEAN CORPUSCULAR HEMOGLOBIN 26.9 pg (27.0-33.4); MEAN CORPUSCULAR HGB CONC 33.4 g/dL (32.0-36.0); MEAN CORPUSCULAR VOLUME 81 fl (80-97); RED BLOOD COUNT 3.69 10^6/uL (4.35-5.55); RED CELL DISTRIBUTION WIDTH 16.3 % (11.5-14.0); WHITE BLOOD COUNT 9.1 10^3/uL (4.0-10.5)
[2020-02-25 15:40] LABS: ALBUMIN 2.3 g/dL (3.5-5.0); ALKALINE PHOSPHATASE 54 U/L (38-126); ANION GAP 16 (5-19); ASPARTATE AMINO TRANSFERASE 105 U/L (17-59); BILIRUBIN,DIRECT 4.3 mg/dL (0.0-0.4); BILIRUBIN,TOTAL 5.1 mg/dL (0.2-1.3); BLOOD UREA NITROGEN 56 mg/dL (7-20); CALCIUM 8.2 mg/dL (8.4-10.2); CARBON DIOXIDE 19 mmol/L (22-30); CHLORIDE 104 mmol/L (98-107); POTASSIUM 4.1 mmol/L (3.6-5.0); TOTAL PROTEIN 5.4 g/dL (6.3-8.2)
[2020-02-25 15:52] LABS: GLUCOSE 34 mg/dL (75-110)
[2020-02-25] MEDS ORDERED: DEXTROSE 50%-WATER 25 GM/50 ML DISP.SYRIN IV ONE (15:59)
[2020-02-25 16:26] LABS: PLATELET COUNT 92 10^3/uL (150-450)
[2020-02-25 16:27] LABS: ABSOLUTE LYMPHOCYTES# (MANUAL) 1.2 10^3/uL (0.5-4.7); ABSOLUTE MONOCYTES # (MANUAL) 0.2 10^3/uL (0.1-1.4); ANISOCYTOSIS 1+; BASOPHILS % (MANUAL) 0 % (0-2); BURR CELLS SLIGHT; EOSINOPHILS % (MANUAL) 1 % (0-6); HYPOCHROMASIA SLIGHT; LYMPHOCYTES % (MANUAL) 13 % (13-45); METAMYELOCYTES % (MANUAL) 1 % (0-1); MONOCYTES % (MANUAL) 2 % (3-13); PLATELET CLUMPS PRESENT; PLATELET COMMENT DECREASED; PLATELET LARGE PRESENT; SCHISTOCYTES SLIGHT; SEGMENTED NEUTROPHILS % (MAN) 83 % (42-78); TARGET CELLS 1+; TOTAL CELLS COUNTED 100; TOXIC VACUOLATION PRESENT
[2020-02-25 16:28] LABS: POIKILOCYTOSIS 1+
[2020-02-25] MEDS: PHARMACY COMMUNICATION ORDER MC SCH ×2 (18:10→18:14)
[2020-02-25] MEDS: NORMAL SALINE 250 ML with FUROSEMIDE 250 MG IV PRN ×2 (18:14)
--- NOTE | 2020-02-25 20:56 | PDOC PROGRESS REPORT ---
Subjective Progress Note for:: 02/25/20 Subjective:: Patient seen by the bedside, he continues to depend on noninvasive positive pressure ventilation, he made Over 700 cc of urine since last night, blood pressure is low, dopamine started, he has hypoglycemia, he has not been eating, whenever the CPAP is taken off patient desaturate very quickly Reason For Visit: ACUTE KIDNEY INJURY,HYPOTENSION,SHOCK LIVER,SEPSIS Physical Exam Vital Signs: Temp Pulse Resp BP Pulse Ox 97.9 F 90 27 H 151/97 H 95 02/25/20 16:42 02/25/20 16:42 02/25/20 20:25 02/25/20 18:00 02/25/20 20:25 Intake & Output 02/24/20 02/25/20 02/26/20 06:59 06:59 06:59 Intake Total 1150 1307 550 Output Total 775 3400 450 Balance 375 -2093 100 Weight 72.1 kg 68.3 kg 68.3 kg General appearance: PRESENT: other - Patient with CPAP in place Respiratory exam: PRESENT: crackles, rhonchi Cardiovascular exam: PRESENT: +S1, +S2 GI/Abdominal exam: PRESENT: soft Results Laboratory Results: 02/25/20 15:07 02/25/20 15:07 02/25/20 02/25/20 02/25/20 05:48 15:07 15:07 WBC 9.1 RBC 3.69 L Hgb 9.9 L Hct 29.7 L MCV 81 MCH 26.9 L MCHC 33.4 RDW 16.3 H Plt Count 92 L Seg Neutrophils % Not Reportable Sodium 138.5 139.3 Potassium 4.0 4.1 Chloride 103 104 Carbon Dioxide 22 19 L Anion Gap 14 16 BUN 52 H 56 H Creatinine 6.36 H 6.77 H Est GFR ( Amer) 10 L 10 L Glucose 49 L 34 L* Calcium 8.0 L 8.2 L Phosphorus 4.4 Magnesium 2.0 Total Bilirubin 5.1 H AST 105 H Alkaline Phosphatase 54 Total Protein 5.4 L Albumin 2.3 L 02/18/20 02/18/20 02/18/20 07:33 07:33 07:33 Creatine Kinase 187 H CK-MB (CK-2) Troponin I 0.032 NT-Pro-B Natriuret Pep 2760 H 02/18/20 02/18/20 02/18/20 14:19 14:19 17:27 Creatine Kinase 163 186 H CK-MB (CK-2) 1.63 Troponin I 0.028 NT-Pro-B Natriuret Pep 02/18/20 02/19/20 02/19/20 17:27 00:46 00:46 Creatine Kinase 154 CK-MB (CK-2) 1.48 1.26 Troponin I 0.033 0.029 NT-Pro-B Natriuret Pep Impressions: Renal Ultrasound 02/18/20 09:10 IMPRESSION: 1. No hydronephrosis. 2. Left-sided renal cysts that measure up to 4.5 x 4.5 x 3.8 cm. 3. Pineda catheter within the contracted urinary bladder. Venous Doppler Study 02/22/20 00:00 IMPRESSION: No acute DVT. Acute/subacute SVT of the cephalic and basilic veins. Chest X-Ray 02/25/20 13:59 IMPRESSION: NO SIGNIFICANT INTERVAL CHANGE. NO CHANGE IN THE LEFT APICAL PNEUMOTHORAX. NO CHANGE IN DIFFUSE BILATERAL AIRSPACE DISEASE. Assessment & Plan - Diagnosis (1) Acute kidney injury Is this a current diagnosis for this admission?: Yes Plan: Patient with oliguric acute kidney injury,on Lasix drip. He was dialyzed yesterday, nephrology is following as well (2) Chronic combined systolic and diastolic heart failure Is this a current diagnosis for this admission?: Yes (3) Hyperkalemia Is this a current diagnosis for this admission?: Yes (4) Metabolic acidosis Is this a current diagnosis for this admission?: Yes (5) Hypotension Qualifiers: Hypotension type: unspecified hypotension type Qualified Code(s): I95.9 - Hypotension, unspecified Is this a current diagnosis for this admission?: Yes Plan: Start dopamine (6) Acute hypoxemic respiratory failure Is this a current diagnosis for this admission?: Yes Plan: Continue noninvasive positive pressure ventilation, CPAP (7) Pneumonia Qualifiers: Pneumonia type: due to unspecified organism Lung location: unspecified part of lung Is this a current diagnosis for this admission?: Yes (8) Acute embolism from left basilic vein Is this a current diagnosis for this admission?: Yes (9) Sepsis Qualifiers: Sepsis type: sepsis due to unspecified organism Sepsis acute organ dysfunction status: with acute organ dysfunction Severe sepsis acute organ dysfunction type: acute renal failure Acute renal failure type: with acute tubular necrosis Severe sepsis shock status: with septic shock Qualified Code(s): A41.9 - Sepsis, unspecified organism; R65.21 - Severe sepsis with sept ic shock; N17.0 - Acute kidney failure with tubular necrosis Is this a current diagnosis for this admission?: Yes Plan: Continue Zyvox and Unasyn (10) UTI (urinary tract infection) due to Enterococcus Is this a current diagnosis for this admission?: Yes (11) Hypoglycemia Is this a current diagnosis for this admission?: Yes Plan: This is due to multiple factors including sepsis, inadequate intake this portend poor prognosis, patient is a DNR status - Time Time Spent with patient: 25-34 minutes Level of Care: IMCU
[2020-02-25] MEDS ORDERED: DEXTROSE 40% GEL 15 GM TUBE X 2 PO PRN (21:00)
[2020-02-25] MEDS ORDERED: DEXTROSE 40% GEL 15 GM TUBE PO PRN (21:00)
[2020-02-25] MEDS ORDERED: GLUCAGON,HUMAN RECOMB 1 MG INJ IM PRN (21:00)
[2020-02-25] MEDS: AMPICILLIN SODIUM/SULBACTAM NA 1.5 GM in NORMAL SALINE 50 ML IV SCH (23:49)
[2020-02-26] MEDS ORDERED: ALBUMIN HUMAN 12.5 GM/50 ML RTUINJ IV PRN (05:00)
[2020-02-26] MEDS ORDERED: NORMAL SALINE 1000 ML 1,000 ML IV PRN (05:00)
[2020-02-26] MEDS ORDERED: HEPARIN SOD (PORCINE) 1,000 UNIT/ML 10 ML VIAL IV PRN (05:00)
[2020-02-26] MEDS: LINEZOLID 600 MG/300 ML RTUPB IV SCH ×2 (05:15→17:27)
[2020-02-26] MEDS: HEPARIN SOD (PORCINE) 5,000 UNIT/ML 1 ML VIAL SUBCUT SCH ×3 (05:58→21:34)
[2020-02-26 06:14] LABS: HEMATOCRIT 31.7 % (37.9-51.0); HEMOGLOBIN 10.7 g/dL (13.5-17.0); MEAN CORPUSCULAR HEMOGLOBIN 26.9 pg (27.0-33.4); MEAN CORPUSCULAR HGB CONC 33.9 g/dL (32.0-36.0); MEAN CORPUSCULAR VOLUME 79 fl (80-97); RED CELL DISTRIBUTION WIDTH 16.1 % (11.5-14.0); WHITE BLOOD COUNT 10.5 10^3/uL (4.0-10.5)
[2020-02-26 06:29] LABS: PLATELET COUNT 66 10^3/uL (150-450)
[2020-02-26 06:31] LABS: ANION GAP 16 (5-19); BLOOD UREA NITROGEN 63 mg/dL (7-20); CALCIUM 8.1 mg/dL (8.4-10.2); CARBON DIOXIDE 21 mmol/L (22-30); CHLORIDE 104 mmol/L (98-107); POTASSIUM 3.7 mmol/L (3.6-5.0)
[2020-02-26 06:32] LABS: ABSOLUTE LYMPHOCYTES# (MANUAL) 0.8 10^3/uL (0.5-4.7); ABSOLUTE MONOCYTES # (MANUAL) 0.3 10^3/uL (0.1-1.4); BASOPHILS % (MANUAL) 0 % (0-2); EOSINOPHILS % (MANUAL) 0 % (0-6); GLUCOSE 46 mg/dL (75-110); LYMPHOCYTES % (MANUAL) 6 % (13-45); MONOCYTES % (MANUAL) 3 % (3-13); SEGMENTED NEUTROPHILS % (MAN) 89 % (42-78); TOTAL CELLS COUNTED 100
[2020-02-26 06:37] LABS: ANISOCYTOSIS SLIGHT; HYPOCHROMASIA SLIGHT; POLYCHROMASIA SLIGHT; TOXIC GRANULATION SLIGHT
[2020-02-26 06:38] LABS: PLATELET COMMENT DECREASED; PLATELET LARGE PRESENT; TARGET CELLS 1+
[2020-02-26] MEDS: IPRATROPIUM/ALBUTEROL 0.5-2.5 MG/3 ML AMPUL NEB PRN (09:10)
[2020-02-26 10:37] LABS: HEPATITIS C QUANTITATION HCV Not Detected IU/mL (.)
[2020-02-26] MEDS: CALCITRIOL 0.25 MCG CAPSULE PO SCH ×2 (15:25→15:39)
[2020-02-26] MEDS: CALCIUM CARBONATE 600 MG TABLET PO SCH ×3 (15:25→17:35)
[2020-02-26] MEDS: NORMAL SALINE 250 ML with FUROSEMIDE 250 MG IV PRN ×2 (17:27)
[2020-02-26] MEDS: PHARMACY COMMUNICATION ORDER MC SCH ×2 (17:36)
--- NOTE | 2020-02-26 18:58 | PDOC PROGRESS REPORT ---
Subjective Progress Note for:: 02/26/20 Subjective:: Patient is alert he was dialyzed today Reason For Visit: ACUTE KIDNEY INJURY,HYPOTENSION,SHOCK LIVER,SEPSIS Physical Exam Vital Signs: Temp Pulse Resp BP Pulse Ox 98.1 F 86 31 H 136/76 H 98 02/26/20 10:54 02/26/20 18:24 02/26/20 16:37 02/26/20 18:24 02/26/20 16:37 Intake & Output 02/25/20 02/26/20 02/27/20 06:59 06:59 06:59 Intake Total 6112 406 8417 Output Total 3400 1100 3323 Balance -3586 -244 -3608 Weight 68.3 kg 75.2 kg General appearance: PRESENT: no acute distress Eye exam: PRESENT: PERRLA Respiratory exam: PRESENT: clear to auscultation srikanth Cardiovascular exam: PRESENT: +S1, +S2 GI/Abdominal exam: PRESENT: soft Neurological exam: PRESENT: alert Results Laboratory Results: 02/26/20 05:24 02/26/20 05:24 02/26/20 02/26/20 05:24 05:24 WBC 10.5 RBC 4.00 L Hgb 10.7 L Hct 31.7 L MCV 79 L MCH 26.9 L MCHC 33.9 RDW 16.1 H Plt Count 66 L Seg Neutrophils % Not Reportable Sodium 140.6 Potassium 3.7 Chloride 104 Carbon Dioxide 21 L Anion Gap 16 BUN 63 H Creatinine 6.96 H Est GFR ( Amer) 9 L Glucose 46 L Calcium 8.1 L 02/21/20 14:30 Blood Blood Culture - Final NO GROWTH IN 5 DAYS 02/21/20 14:30 Blood Blood Culture - Final NO GROWTH IN 5 DAYS 02/23/20 01:36 Throat Throat Culture - Final C.albicans/C.dubliniensis Normal Cintia Absent 02/18/20 02/18/20 02/18/20 07:33 07:33 07:33 Creatine Kinase 187 H CK-MB (CK-2) Troponin I 0.032 NT-Pro-B Natriuret Pep 2760 H 02/18/20 02/18/20 02/18/20 14:19 14:19 17:27 Creatine Kinase 163 186 H CK-MB (CK-2) 1.63 Troponin I 0.028 NT-Pro-B Natriuret Pep 02/18/20 02/19/20 02/19/20 17:27 00:46 00:46 Creatine Kinase 154 CK-MB (CK-2) 1.48 1.26 Troponin I 0.033 0.029 NT-Pro-B Natriuret Pep Impressions: Renal Ultrasound 02/18/20 09:10 IMPRESSION: 1. No hydronephrosis. 2. Left-sided renal cysts that measure up to 4.5 x 4.5 x 3.8 cm. 3. Pineda catheter within the contracted urinary bladder. Venous Doppler Study 02/22/20 00:00 IMPRESSION: No acute DVT. Acute/subacute SVT of the cephalic and basilic veins. Chest X-Ray 02/25/20 13:59 IMPRESSION: NO SIGNIFICANT INTERVAL CHANGE. NO CHANGE IN THE LEFT APICAL PNEUMOTHORAX. NO CHANGE IN DIFFUSE BILATERAL AIRSPACE DISEASE. Assessment & Plan - Diagnosis (1) Acute kidney injury Is this a current diagnosis for this admission?: Yes Plan: Patient had dialysis today (2) Chronic combined systolic and diastolic heart failure Is this a current diagnosis for this admission?: Yes (3) Hyperkalemia Is this a current diagnosis for this admission?: Yes (4) Metabolic acidosis Is this a current diagnosis for this admission?: Yes (5) Hypotension Qualifiers: Hypotension type: unspecified hypotension type Qualified Code(s): I95.9 - Hypotension, unspecified Is this a current diagnosis for this admission?: Yes Plan: He continues to require dopamine to support blood pressure (6) Acute hypoxemic respiratory failure Is this a current diagnosis for this admission?: Yes Plan: He continues to require noninvasive positive pressure ventilation (7) Pneumonia Qualifiers: Pneumonia type: due to unspecified organism Lung location: unspecified part of lung Is this a current diagnosis for this admission?: Yes (8) Acute embolism from left basilic vein Is this a current diagnosis for this admission?: Yes (9) Sepsis Qualifiers: Sepsis type: sepsis due to unspecified organism Sepsis acute organ dysfu nction status: with acute organ dysfunction Severe sepsis acute organ dys function type: acute renal failure Acute renal failure type: with acute tubular necrosis Severe sepsis shock status: with septic shock Qualified Code(s): A41.9 - Sepsis, unspecified organism; R65.21 - Severe sepsis with septic shock; N17.0 - Acute kidney failure with tubular necrosis Is this a current diagnosis for this admission?: Yes (10) UTI (urinary tract infection) due to Enterococcus Is this a current diagnosis for this admission?: Yes (11) Hypoglycemia Is this a current diagnosis for this admission?: Yes - Time Time Spent with patient: 15-24 minutes Level of Care: IMCU
[2020-02-26] MEDS: AMPICILLIN SODIUM/SULBACTAM NA 1.5 GM in NORMAL SALINE 50 ML IV SCH (21:41)
[2020-02-26] MEDS: DEXTROSE 50%-WATER SYRINGE 25 GM/50 ML DOSE IV PRN (21:41)
--- NOTE | 2020-02-26 21:50 | PDOC PROGRESS REPORT ---
Subjective Progress Note for:: 02/26/20 Subjective:: Patient continues to be on noninvasive pressure ventilation. He was on CPAP previously after dialysis on Monday but then yesterday nurse told me that patient desaturated so he was placed back on BiPAP. He is still requiring high FiO2. He also continues to be on low-dose dopamine drip. He is still on Lasix drip as well. His urine output was 1100 mL for the past 24 hours. Patient remains to be awake and answering few questions. When asked the patient really does not have any complaints. I am seeing the patient during dialysis this afternoon. We need to bring the patient to the ICU for dialysis due to the dopamine drip and being on BiPAP. At the initiation of dialysis the patient's blood pressure went down with systolic blood pressure as low as 78-80s so I increased the dopamine drip to 5 mcg/min while on dialysis. The blood pressure slowly improved. So I instructed her dialysis nurse to slowly try to get some ultrafiltration during dialysis but follow the patient very closely. Reason For Visit: ACUTE KIDNEY INJURY,HYPOTENSION,SHOCK LIVER,SEPSIS Physical Exam Vital Signs: Temp Pulse Resp BP Pulse Ox 97.8 F 86 28 H 107/64 94 02/26/20 07:59 02/26/20 10:00 02/26/20 11:29 02/26/20 10:00 02/26/20 11:29 Intake & Output 02/25/20 02/26/20 02/27/20 06:59 06:59 06:59 Intake Total 1307 600 300 Output Total 3400 1100 Balance -2093 -500 300 Weight 68.3 kg 75.2 kg Vitals during dialysis: Initial blood pressure 78/62 improving to 87/63 after initiation of increase of dopamine drip; heart rate of 84, oxygen saturation 96%, blood flow rate of 250 mL/min and dialysate flow rate of 600 mL/min. Exam: General appearance: PRESENT: Patient currently on BiPAP, awake and answers limited questions by nodding Head exam: PRESENT: atraumatic, normocephalic Eye exam: PRESENT: conjunctiva slightly pale, PERRLA. ABSENT: scleral icterus Neck exam: ABSENT: JVD Respiratory exam: PRESENT: Coarse breath sounds. Positive bibasilar crackles ABSENT: Rhonchi, unlabored, wheezes Cardiovascular exam: PRESENT: Regular rate rhythm -+S1, +S2. ABSENT: diastolic murmur, systolic murmur GI/Abdominal exam: PRESENT: normal bowel sounds, soft. ABSENT: guarding, mass, tenderness Extremities exam: Bilateral grade 1 bilateral stump edema Neurological exam: PRESENT: alert, awake. Skin exam: PRESENT: dry, warm, Cardiovascular exam: PRESENT: +S1, +S2 GI/Abdominal exam: PRESENT: normal bowel sounds, soft. ABSENT: organomegaly, tenderness Results Laboratory Results: 02/26/20 05:24 02/26/20 05:24 02/25/20 02/25/20 02/26/20 15:07 15:07 05:24 WBC 9.1 10.5 RBC 3.69 L 4.00 L Hgb 9.9 L 10.7 L Hct 29.7 L 31.7 L MCV 81 79 L MCH 26.9 L 26.9 L MCHC 33.4 33.9 RDW 16.3 H 16.1 H Plt Count 92 L 66 L Seg Neutrophils % Not Reportable Not Reportable Sodium 139.3 Potassium 4.1 Chloride 104 Carbon Dioxide 19 L Anion Gap 16 BUN 56 H Creatinine 6.77 H Est GFR ( Amer) 10 L Glucose 34 L* Calcium 8.2 L Total Bilirubin 5.1 H AST 105 H Alkaline Phosphatase 54 Total Protein 5.4 L Albumin 2.3 L 02/26/20 05:24 WBC RBC Hgb Hct MCV MCH MCHC RDW Plt Count Seg Neutrophils % Sodium 140.6 Potassium 3.7 Chloride 104 Carbon Dioxide 21 L Anion Gap 16 BUN 63 H Creatinine 6.96 H Est GFR ( Amer) 9 L Glucose 46 L Calcium 8.1 L Total Bilirubin AST Alkaline Phosphatase Total Protein Albumin 02/23/20 01:36 Throat Throat Culture - Final C.albicans/C.dubliniensis Normal Cintia Absent 02/18/20 02/18/20 02/18/20 07:33 07:33 07:33 Creatine Kinase 187 H CK-MB (CK-2) Troponin I 0.032 NT-Pro-B Natriuret Pep 2760 H 02/18/20 02/18/20 02/18/20 14:19 14:19 17:27 Creatine Kinase 163 186 H CK-MB (CK-2) 1.63 Troponin I 0.028 NT-Pro-B Natriuret Pep 02/18/20 02/19/20 02/19/20 17:27 00:46 00:46 Creatine Kinase 154 CK-MB (CK-2) 1.48 1.26 Troponin I 0.033 0.029 NT-Pro-B Natriuret Pep Impressions: Renal Ultrasound 02/18/20 09:10 IMPRESSION: 1. No hydronephrosis. 2. Left-sided renal cysts that measure up to 4.5 x 4.5 x 3.8 cm. 3. Pineda catheter within the contracted urinary bladder. Venous Doppler Study 02/22/20 00:00 IMPRESSION: No acute DVT. Acute/subacute SVT of the cephalic and basilic veins. Chest X-Ray 02/25/20 13:59 IMPRESSION: NO SIGNIFICANT INTERVAL CHANGE. NO CHANGE IN THE LEFT APICAL PNEUMOTHORAX. NO CHANGE IN DIFFUSE BILATERAL AIRSPACE DISEASE. Assessment & Plan - Diagnosis (1) Acute kidney injury superimposed on CKD Is this a current diagnosis for this admission?: Yes Plan: It is most likely secondary to acute onset of hypotension and possibly impending sepsis possibly causing ATN versus cardiorenal syndrome. By history the patient has combined systolic and diastolic congestive heart failure but not substantiat ed by current little very limited echocardiogram. CHF could also be a contributory factor. All the patient's urine output is slightly better with the Lasix drip, he continues to have elevated BUN and creatinine and clinical worsening pulmonary vascular congestion. The dopamine drip seems to slightly improve the urine output as well for the past 24 hours. His clinical feature is very much consistent with advanced chronic kidney disease, although his baseline is just around stage III in 2019. We will continue Lasix drip. We will do dialysis today for 2.5 hours, using the patient's dialysis catheter, with 3 potassium bath, blood flow rate of 250 mL per minute, dialysate flow rate of 600 mL per minute, ultrafiltration goal of 2.5 L as tolerated, no heparin and no Procrit. Patient's ultrafiltration will be adjusted accordingly depending on the blood pressure while on dopamine drip. Patient being monitored very closely here in the ICU dialysis. (2) Acute hypoxemic respiratory failure Is this a current diagnosis for this admission?: Yes Plan: Patient is currently on BiPAP. Patient opted not to be intubated. Patient has persistent pulmonary vascular congestion on chest x-ray. Will try ultrafiltration. Continue Lasix drip. (3) Hypotension Qualifiers: Hypotension type: unspecified hypotension type Qualified Code(s): I95.9 - Hypotension, unspecified Is this a current diagnosis for this admission?: Yes Plan: Suspicious for developing sepsis possibly due to UTI with contributory effect of congestive heart failure. On dopamine drip. (4) UTI (urinary tract infection) due to Enterococcus Is this a current diagnosis for this admission?: Yes Plan: Also with E. coli. Currently on IV Unasyn and Zyvox. (5) Metabolic acidosis Is this a current diagnosis for this admission?: Yes Plan: Improved with dialysis. (6) Hypoalbuminemia Is this a current diagnosis for this admission?: Yes (7) Anemia Qualifiers: Anemia type: unspecified type Qualified Code(s): D64.9 - Anemia, unspecified Is this a current diagnosis for this admission?: Yes (8) Elevated liver enzymes Is this a current diagnosis for this admission?: Yes Plan: Patient was on amiodarone and atorvastatin upon presentation. He does not seem to have active hepatitis with only positive hepatitis B core antibody and negative hepatitis B surface antigen/antibody and hepatitis C virus antibody. Consider effect of hypotension. 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 Echocardiogram on February 17 was very limited. (10) Chronic kidney disease-mineral and bone disorder Is this a current diagnosis for this admission?: Yes Plan: PTH is 561.6. Patient on calcitriol. (11) Superficial venous thrombosis of left arm Is this a current diagnosis for this admission?: Yes Plan: Not on any anticoagulation with current thrombocytopenia. (12) Chronic atrial fibrillation Is this a current diagnosis for this admission?: Yes - Notes Notes: Patient is clinically not improving. I think plan of care needs to be discussed with the family. If the patient's respiratory status does not improve with noninvasive ventilation, there may not be any other good option for this patient. - Time Time with patient: 15-25 minutes
[2020-02-27] MEDS: HEPARIN SOD (PORCINE) 5,000 UNIT/ML 1 ML VIAL SUBCUT SCH ×3 (05:34→21:25)
[2020-02-27] MEDS: LINEZOLID 600 MG/300 ML RTUPB IV SCH ×2 (05:35→17:36)
[2020-02-27] MEDS: IPRATROPIUM/ALBUTEROL 0.5-2.5 MG/3 ML AMPUL NEB PRN (10:07)
--- NOTE | 2020-02-27 10:15 | PDOC PROGRESS REPORT ---
Subjective Progress Note for:: 02/27/20 Subjective:: The patient continues to be requiring BiPAP now with FiO2 of 55%. He continues to be in dopamine drip now at 5 mics per minute and Lasix drip. Is encouraging to note of the patient made about 1600 mL of urine output yesterday on top of the hemodialysis ultrafiltration of 2500. Patient's mentation is unchanged. Blood pressure is maintained for as long as he is on dopamine drip. Reason For Visit: ACUTE KIDNEY INJURY,HYPOTENSION,SHOCK LIVER,SEPSIS Physical Exam Vital Signs: Temp Pulse Resp BP Pulse Ox 98.6 F 85 30 H 129/73 H 94 02/27/20 06:50 02/27/20 07:00 02/27/20 06:50 02/27/20 06:50 02/27/20 06:50 Intake & Output 02/26/20 02/27/20 02/28/20 06:59 06:59 06:59 Intake Total 600 1780 Output Total 1100 4100 Balance -500 -2320 Weight 75.2 kg 73.9 kg Exam: General appearance: PRESENT: On BiPAP and seems to be resting comfortably Head exam: PRESENT: atraumatic, normocephalic Eye exam: PRESENT: conjunctiva pale, PERRLA. ABSENT: scleral icterus Neck exam: ABSENT: JVD Respiratory exam: PRESENT: Diminished breath sounds. ABSENT: crackles, rales, rhonchi, unlabored, wheezes Cardiovascular exam: PRESENT: Regular rate rhythm -+S1, +S2. ABSENT: diastolic murmur, systolic murmur GI/Abdominal exam: PRESENT: normal bowel sounds, soft. ABSENT: guarding, mass, tenderness Extremities exam: Possibly slightly improved grade 1 bilateral lower AKA stump edema Neurological exam: PRESENT: Awake, follows limited commands with not much verbal output. Skin exam: PRESENT: dry, warm, Cardiovascular exam: PRESENT: +S1, +S2 GI/Abdominal exam: PRESENT: normal bowel sounds, soft. ABSENT: organomegaly, tenderness Results Laboratory Results: 02/26/20 05:24 02/27/20 07:38 02/27/20 07:38 Sodium Cancelled Potassium Cancelled Chloride Cancelled Carbon Dioxide Cancelled Anion Gap Cancelled BUN Cancelled Creatinine Cancelled Est GFR ( Amer) Cancelled Est GFR (Non-Af Amer) Cancelled Glucose Cancelled Calcium Cancelled 02/21/20 14:30 Blood Blood Culture - Final NO GROWTH IN 5 DAYS 02/21/20 14:30 Blood Blood Culture - Final NO GROWTH IN 5 DAYS 02/23/20 01:36 Throat Throat Culture - Final C.albicans/C.dubliniensis Normal Cintia Absent 02/18/20 02/18/20 02/18/20 07:33 07:33 07:33 Creatine Kinase 187 H CK-MB (CK-2) Troponin I 0.032 NT-Pro-B Natriuret Pep 2760 H 02/18/20 02/18/20 02/18/20 14:19 14:19 17:27 Creatine Kinase 163 186 H CK-MB (CK-2) 1.63 Troponin I 0.028 NT-Pro-B Natriuret Pep 02/18/20 02/19/20 02/19/20 17:27 00:46 00:46 Creatine Kinase 154 CK-MB (CK-2) 1.48 1.26 Troponin I 0.033 0.029 NT-Pro-B Natriuret Pep Impressions: Renal Ultrasound 02/18/20 09:10 IMPRESSION: 1. No hydronephrosis. 2. Left-sided renal cysts that measure up to 4.5 x 4.5 x 3.8 cm. 3. Pineda catheter within the contracted urinary bladder. Venous Doppler Study 02/22/20 00:00 IMPRESSION: No acute DVT. Acute/subacute SVT of the cephalic and basilic veins. Chest X-Ray 02/25/20 13:59 IMPRESSION: NO SIGNIFICANT INTERVAL CHANGE. NO CHANGE IN THE LEFT APICAL PNEUMOTHORAX. NO CHANGE IN DIFFUSE BILATERAL AIRSPACE DISEASE. Assessment & Plan - Diagnosis (1) Acute kidney injury superimposed on CKD Is this a current diagnosis for this admission?: Yes Plan: It is most likely secondary to acute onset of hypotension and possibly impending sepsis possibly causing ATN versus cardiorenal syndrome. By history the patient has combined systolic and diastolic congestive heart failure but not substantiated by current little very limited echocardiogram. CHF could also be a contributory factor. His urine output is peaking up with current Lasix drip and dopamine drip. His labs today will be redrawn. I will re-evaluate him tomorrow if he needs any further renal replacement therapy. Realistically the patient is not a very good candidate for any chronic dialysis treatment given his overall comorbid conditions including dementia and current respiratory status. I would not really recommend any chronic dialysis treatment for this patient. Furthermore if his respiratory status does not improve from here, I think the best option wi ll be hospice care. I was told by the nurse that Dr. Molina will talk to the patient's son regarding plan of care. (2) Acute hypoxemic respiratory failure Is this a current diagnosis for this admission?: Yes Plan: Patient is currently on BiPAP. Patient opted not to be intubated. Patient has persistent pulmonary vascular congestion on chest x-ray. Continue Lasix drip. We have gotten a good ultrafiltration yesterday on dialysis and the patient's urine output is improving. (3) Hypotension Qualifiers: Hypotension type: unspecified hypotension type Qualified Code(s): I95.9 - Hypotension, unspecified Is this a current diagnosis for this admission?: Yes Plan: On dopamine drip. I initially thought this is due to impending sepsis but with several blood cultures being negative, is very possible that the patient's hypotension could be due to poor cardiac function. I will try to start the patient on midodrine to see if it will help taper down the dopamine drip if patient can take oral meds. (4) UTI (urinary tract infection) due to Enterococcus Is this a current diagnosis for this admission?: Yes Plan: Also with E. coli. Currently on IV Unasyn and Zyvox. (5) Metabolic acidosis Is this a current diagnosis for this admission?: Yes Plan: Improved with dialysis. (6) Hypoalbuminemia Is this a current diagnosis for this admission?: Yes Plan: Given IV albumin few days ago. (7) Anemia Qualifiers: Anemia type: unspecified type Qualified Code(s): D64.9 - Anemia, unspecified Is this a current diagnosis for this admission?: Yes (8) Elevated liver enzymes Is this a current diagnosis for this admission?: Yes Plan: Patient was on amiodarone and atorvastatin upon presentation. He does not seem to have active hepatitis with only positive hepatitis B core antibody and negative hepatitis B surface antigen/antibody and hepatitis C virus antibody. Consider effect of hypotension. 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 Echocardiogram on February 17 was very limited. (10) Chronic kidney disease-mineral and bone disorder Is this a current diagnosis for this admission?: Yes Plan: PTH is 561.6. Patient on calcitriol. (11) Superficial venous thrombosis of left arm Is this a current diagnosis for this admission?: Yes Plan: Not on any anticoagulation with current thrombocytopenia. (12) Chronic atrial fibrillation Is this a current diagnosis for this admission?: Yes - Time Time with patient: 15-25 minutes
[2020-02-27 10:32] LABS: ANION GAP 15 (5-19); BLOOD UREA NITROGEN 51 mg/dL (7-20); CALCIUM 8.3 mg/dL (8.4-10.2); CARBON DIOXIDE 23 mmol/L (22-30); CHLORIDE 101 mmol/L (98-107); POTASSIUM 3.8 mmol/L (3.6-5.0)
[2020-02-27 10:38] LABS: GLUCOSE 53 mg/dL (75-110)
[2020-02-27] MEDS: DEXTROSE 50%-WATER SYRINGE 12.5 GM/25 ML DOSE IV PRN ×2 (10:43→17:25)
[2020-02-27] MEDS: CALCIUM CARBONATE 600 MG TABLET PO SCH ×2 (10:51→18:14)
[2020-02-27] MEDS: CALCITRIOL 0.25 MCG CAPSULE PO SCH (10:52)
[2020-02-27] MEDS: DOPAMINE HCL 800 MG/D5W 250 ML IV PRN (11:04)
[2020-02-27] MEDS: DEXTROSE 50%-WATER SYRINGE 25 GM/50 ML DOSE IV PRN (17:43)
[2020-02-27] MEDS: PHARMACY COMMUNICATION ORDER MC SCH ×2 (18:14→21:25)
[2020-02-27] MEDS: NORMAL SALINE 250 ML with FUROSEMIDE 250 MG IV PRN ×2 (20:27)
--- NOTE | 2020-02-27 21:25 | PDOC PROGRESS REPORT ---
Subjective Progress Note for:: 02/27/20 Subjective:: Patient condition very poor, I had a long discussion with patient's son about prognosis, blood pressure is maintained as long as he is on dopamine, patient continued to require BiPAP to support breathing, overall prognosis is very poor. I advised patient son to come and see his father because prognosis is very poor. Reason For Visit: ACUTE KIDNEY INJURY,HYPOTENSION,SHOCK LIVER,SEPSIS Physical Exam Vital Signs: Temp Pulse Resp BP Pulse Ox 99.9 F 92 30 H 109/70 97 02/27/20 19:38 02/27/20 19:38 02/27/20 20:22 02/27/20 19:38 02/27/20 20:22 Intake & Output 02/26/20 02/27/20 02/28/20 06:59 06:59 06:59 Intake Total 600 2080 250 Output Total 1100 4100 950 Balance - -2019 - Weight 75.2 kg 73.9 kg Eye exam: PRESENT: PERRLA Respiratory exam: PRESENT: rhonchi Cardiovascular exam: PRESENT: +S1, +S2 GI/Abdominal exam: PRESENT: soft Neurological exam: PRESENT: alert Results Laboratory Results: 02/26/20 05:24 02/27/20 10:02 02/27/20 02/27/20 07:38 10:02 Sodium Cancelled 138.9 Potassium Cancelled 3.8 Chloride Cancelled 101 Carbon Dioxide Cancelled 23 Anion Gap Cancelled 15 BUN Cancelled 51 H Creatinine Cancelled 4.74 H Est GFR ( Amer) Cancelled 14 L Est GFR (Non-Af Amer) Cancelled Glucose Cancelled 53 L Calcium Cancelled 8.3 L 02/18/20 02/18/20 02/18/20 07:33 07:33 07:33 Creatine Kinase 187 H CK-MB (CK-2) Troponin I 0.032 NT-Pro-B Natriuret Pep 2760 H 02/18/20 02/18/20 02/18/20 14:19 14:19 17:27 Creatine Kinase 163 186 H CK-MB (CK-2) 1.63 Troponin I 0.028 NT-Pro-B Natriuret Pep 02/18/20 02/19/20 02/19/20 17:27 00:46 00:46 Creatine Kinase 154 CK-MB (CK-2) 1.48 1.26 Troponin I 0.033 0.029 NT-Pro-B Natriuret Pep Impressions: Renal Ultrasound 02/18/20 09:10 IMPRESSION: 1. No hydronephrosis. 2. Left-sided renal cysts that measure up to 4.5 x 4.5 x 3.8 cm. 3. Pineda catheter within the contracted urinary bladder. Venous Doppler Study 02/22/20 00:00 IMPRESSION: No acute DVT. Acute/subacute SVT of the cephalic and basilic veins. Chest X-Ray 02/25/20 13:59 IMPRESSION: NO SIGNIFICANT INTERVAL CHANGE. NO CHANGE IN THE LEFT APICAL PNEUMOTHORAX. NO CHANGE IN DIFFUSE BILATERAL AIRSPACE DISEASE. Assessment & Plan - Diagnosis (1) Acute kidney injury Is this a current diagnosis for this admission?: Yes Plan: Patient making urine, the acute kidney injury is most likely from sepsis, low blood pressure (2) Chronic combined systolic and diastolic heart failure Is this a current diagnosis for this admission?: Yes (3) Hyperkalemia Is this a current diagnosis for this admission?: Yes Plan: Resolved (4) Metabolic acidosis Is this a current diagnosis for this admission?: Yes (5) Hypotension Qualifiers: Hypotension type: unspecified hypotension type Qualified Code(s): I95.9 - Hypotension, unspecified Is this a current diagnosis for this admission?: Yes Plan: Patient continues to require dopamine to maintain blood pressure (6) Acute hypoxemic respiratory failure Is this a current diagnosis for this admission?: Yes Plan: Patient continues to depend on BiPAP (7) Pneumonia Qualifiers: Pneumonia type: due to unspecified organism Lung location: unspecified part of lung Is this a current diagnosis for this admission?: Yes (8) Acute embolism from left basilic vein Is this a current diagnosis for this admission?: Yes (9) Sepsis Qualifiers: Sepsis type: sepsis due to unspecified organism Sepsis acute organ dysfunction status: with acute organ dysfunction Severe sepsis acute organ dysfunction type: acute renal failure Acute renal failure type: with acute tubular necrosis Severe sepsis shock status: with septic shock Qualified Code(s): A41.9 - Sepsis, unspecified organism; R65.21 - Severe sepsis with septic shock; N17.0 - Acute kidney failure with tubular necrosis Is this a current diagnosis for this admission?: Yes (10) UTI (urinary tract infection) due to Enterococcus Is this a current diagnosis for this admission?: Yes (11) Hypoglycemia Is this a current diagnosis for this admission?: Yes - Time Time Spent with patient: 35 or more minutes Level of Care: IMCU
[2020-02-27] MEDS: AMPICILLIN SODIUM/SULBACTAM NA 1.5 GM in NORMAL SALINE 50 ML IV SCH (21:28)
[2020-02-28] MEDS: DEXTROSE 50%-WATER SYRINGE 25 GM/50 ML DOSE IV PRN (00:52)
[2020-02-28] MEDS: HEPARIN SOD (PORCINE) 5,000 UNIT/ML 1 ML VIAL SUBCUT SCH ×3 (05:08→22:02)
[2020-02-28] MEDS: LINEZOLID 600 MG/300 ML RTUPB IV SCH ×2 (05:16→17:12)
[2020-02-28] MEDS: DOPAMINE HCL 800 MG/D5W 250 ML IV PRN ×2 (05:29→23:39)
[2020-02-28 06:55] LABS: BLOOD UREA NITROGEN 62 mg/dL (7-20); CALCIUM 8.4 mg/dL (8.4-10.2); CARBON DIOXIDE 20 mmol/L (22-30); CHLORIDE 100 mmol/L (98-107); GLUCOSE 75 mg/dL (75-110); POTASSIUM 3.7 mmol/L (3.6-5.0)
[2020-02-28 07:08] LABS: ANION GAP 21 (5-19)
[2020-02-28] MEDS: CALCIUM CARBONATE 600 MG TABLET PO SCH ×2 (09:24→17:12)
[2020-02-28] MEDS: CALCITRIOL 0.25 MCG CAPSULE PO SCH (09:24)
[2020-02-28 09:27] LABS: MEAN CORPUSCULAR HEMOGLOBIN 26.6 pg (27.0-33.4); MEAN CORPUSCULAR HGB CONC 33.6 g/dL (32.0-36.0); MEAN CORPUSCULAR VOLUME 79 fl (80-97); RED BLOOD COUNT 4.92 10^6/uL (4.35-5.55); RED CELL DISTRIBUTION WIDTH 15.7 % (11.5-14.0)
[2020-02-28 10:19] LABS: HEMOGLOBIN 13.1 g/dL (13.5-17.0)
[2020-02-28 10:22] LABS: PLATELET COUNT 24 10^3/uL (150-450)
[2020-02-28 10:24] LABS: ABSOLUTE LYMPHOCYTES# (MANUAL) 0.9 10^3/uL (0.5-4.7); ABSOLUTE MONOCYTES # (MANUAL) 0.5 10^3/uL (0.1-1.4); BAND NEUTROPHILS % (MANUAL) 1 % (3-5); BASOPHILS % (MANUAL) 0 % (0-2); EOSINOPHILS % (MANUAL) 0 % (0-6); LYMPHOCYTES % (MANUAL) 6 % (13-45); MONOCYTES % (MANUAL) 4 % (3-13); SEGMENTED NEUTROPHILS % (MAN) 88 % (42-78); TOTAL CELLS COUNTED 100
[2020-02-28 10:25] LABS: POLYCHROMASIA SLIGHT; TOXIC GRANULATION 1+; TOXIC VACUOLATION PRESENT
[2020-02-28 10:26] LABS: ANISOCYTOSIS 1+; PLATELET COMMENT DECREASED; PLATELET LARGE PRESENT; POIKILOCYTOSIS SLIGHT; SCHISTOCYTES SLIGHT; TARGET CELLS 2+
[2020-02-28] MEDS: NORMAL SALINE 250 ML with FUROSEMIDE 250 MG IV PRN ×6 (10:33→17:05)
[2020-02-28] MEDS: PHARMACY COMMUNICATION ORDER MC SCH ×2 (17:06)
[2020-02-28] MEDS: DEXTROSE 50%-WATER SYRINGE 12.5 GM/25 ML DOSE IV PRN (18:00)
[2020-02-28] MEDS ORDERED: MORPHINE SULFATE 10 MG/ML INJ ONE (18:28)
[2020-02-28] MEDS: MORPHINE SULFATE 10 MG/ML INJ IV PRN ×2 (18:31→23:39)
--- NOTE | 2020-02-28 20:34 | PDOC PROGRESS REPORT ---
Subjective Progress Note for:: 02/28/20 Subjective:: Patient remains to be on BiPAP. His nurse told me that whenever they try to decrease the FiO2 the patient's oxygenation drops down significantly in few minutes. He is also dependent on dopamine to maintain an acceptable blood pressure with a higher drip rate. Just like his oxygenation, his blood pressure also drops immediately if dopamine drip is decreased. On the other hand the patient's urine output has actually improved. He made 1850 mL of urine output yesterday along with an ultrafiltration during dialysis. Patient appears to be more lethargic today. He is unable to verbalize any complaints. The son is expected to come by and visit the patient in the hospital per Dr. Molina. Reason For Visit: ACUTE KIDNEY INJURY,HYPOTENSION,SHOCK LIVER,SEPSIS Physical Exam Vital Signs: Temp Pulse Resp BP Pulse Ox 99.0 F 89 31 H 100/63 97 02/28/20 06:53 02/28/20 06:53 02/28/20 08:37 02/28/20 06:53 02/28/20 08:37 Intake & Output 02/27/20 02/28/20 02/29/20 06:59 06:59 06:59 Intake Total 2080 718 Output Total 4100 1850 Weight 73.9 kg 71.8 kg Exam: General appearance: PRESENT: Currently requiring BiPAP, lethargic but arousable without much verbal response. Head exam: PRESENT: atraumatic, normocephalic Eye exam: PRESENT: conjunctiva pale, PERRLA. ABSENT: scleral icterus Neck exam: ABSENT: JVD Respiratory exam: PRESENT: Slightly coarse breath sounds. ABSENT: crackles, rales, rhonchi, unlabored, wheezes Cardiovascular exam: PRESENT: Regular rate rhythm -+S1, +S2. ABSENT: diastolic murmur, systolic murmur GI/Abdominal exam: PRESENT: normal bowel sounds, soft. 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 Skin exam: PRESENT: dry, warm, Cardiovascular exam: PRESENT: +S1, +S2 GI/Abdominal exam: PRESENT: normal bowel sounds, soft. ABSENT: organomegaly, tenderness Results Laboratory Results: 02/28/20 06:32 02/27/20 02/28/20 02/28/20 10:02 06:32 06:32 WBC Cancelled RBC Cancelled Hgb Cancelled Hct Cancelled MCV Cancelled MCH Cancelled MCHC Cancelled RDW Cancelled Plt Count Cancelled Seg Neutrophils % Cancelled Sodium 138.9 141.0 Potassium 3.8 3.7 Chloride 101 100 Carbon Dioxide 23 20 L Anion Gap 15 21 H BUN 51 H 62 H Creatinine 4.74 H 5.36 H Est GFR ( Amer) 14 L 13 L Glucose 53 L 75 Calcium 8.3 L 8.4 02/18/20 02/18/20 02/18/20 07:33 07:33 07:33 Creatine Kinase 187 H CK-MB (CK-2) Troponin I 0.032 NT-Pro-B Natriuret Pep 2760 H 02/18/20 02/18/20 02/18/20 14:19 14:19 17:27 Creatine Kinase 163 186 H CK-MB (CK-2) 1.63 Troponin I 0.028 NT-Pro-B Natriuret Pep 02/18/20 02/19/20 02/19/20 17:27 00:46 00:46 Creatine Kinase 154 CK-MB (CK-2) 1.48 1.26 Troponin I 0.033 0.029 NT-Pro-B Natriuret Pep Impressions: Renal Ultrasound 02/18/20 09:10 IMPRESSION: 1. No hydronephrosis. 2. Left-sided renal cysts that measure up to 4.5 x 4.5 x 3.8 cm. 3. Pineda catheter within the contracted urinary bladder. Venous Doppler Study 02/22/20 00:00 IMPRESSION: No acute DVT. Acute/subacute SVT of the cephalic and basilic veins. Chest X-Ray 02/25/20 13:59 IMPRESSION: NO SIGNIFICANT INTERVAL CHANGE. NO CHANGE IN THE LEFT APICAL PNEUMOTHORAX. NO CHANGE IN DIFFUSE BILATERAL AIRSPACE DISEASE. Assessment & Plan - Diagnosis (1) Acute kidney injury superimposed on CKD Is this a current diagnosis for this admission?: Yes Plan: It is most likely secondary to acute onset of hypotension and possibly impending sepsis possibly causing ATN versus cardiorenal syndrome. By history the patient has combined systolic and diastolic congestive heart failure but not substantiated by current little very limited echocardiogram. CHF could also be a contributory factor. His urine output is peaking up with current Lasix drip and dopamine drip. Realistically the patient is not a very good candidate for any chronic dialysis treatment given his overall comorbid conditions including dementia and current respiratory status. I would not really recommend any chronic dialysis treatment for this patient. Furthermore if his respiratory status does not improve from here, I think the best option will be hospice care. Dr. Molina has discussed the patient condition with the son who is expected here today. At this point, there is no indication for dialysis today since the patient's urine output is starting to improve and his electrolytes are within acceptable limits. Continue current management with dopamine and Lasix drip unless the son decides comfort care. Overall prognosis is very poor. (2) Acute hypoxemic respiratory failure Is this a current diagnosis for this admission?: Yes Plan: Patient is currently on BiPAP. Patient opted not to be intubated. Patient has persistent pulmonary vascular congestion on chest x-ray. Continue Lasix drip. (3) Hypotension Qualifiers: Hypotension type: unspecified hypotension type Qualified Code(s): I95.9 - Hypotension, unspecified Is this a current diagnosis for this admission?: Yes Plan: On dopamine drip. I initially thought this is due to impending sepsis but with several blood cultures being negative, is very possible that the patient's hypotension could be due to poor cardiac function. Patient is too lethargic to take oral medication including midodrine. (4) UTI (urinary tract infection) due to Enterococcus Is this a current diagnosis for this admission?: Yes Plan: Also with E. coli. Currently on IV Unasyn and Zyvox. (5) Metabolic acidosis Is this a current diagnosis for this admission?: Yes Plan: Improved with dialysis. (6) Hypoalbuminemia Is this a current diagnosis for this admission?: Yes Plan: Given IV albumin few days ago. (7) Anemia Qualifiers: Anemia type: unspecified type Qualified Code(s): D64.9 - Anemia, unspecified Is this a current diagnosis for this admission?: Yes (8) Elevated liver enzymes Is this a current diagnosis for this admission?: Yes Plan: Patient was on amiodarone and atorvastatin upon presentation. He does not seem to have active hepatitis with only positive hepatitis B core antibody and negative hepatitis B surface antigen/antibody and hepatitis C virus antibody. Consider effect of hypotension. 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 Echocardiogram on February 17 was very limited. (10) Chronic kidney disease-mineral and bone disorder Is this a current diagnosis for this admission?: Yes Plan: PTH is 561.6. Patient on calcitriol but unable to take oral medications at this time. (11) Superficial venous thrombosis of left arm Is this a current diagnosis for this admission?: Yes Plan: Not on any anticoagulation with current thrombocytopenia. (12) Chronic atrial fibrillation Is this a current diagnosis for this admission?: Yes - Notes Notes: Overall prognosis is very poor. I recommend comfort care and hospice. - Time Time with patient: 15-25 minutes
[2020-02-28] MEDS: AMPICILLIN SODIUM/SULBACTAM NA 1.5 GM in NORMAL SALINE 50 ML IV SCH (22:03)
--- NOTE | 2020-02-28 22:21 | PDOC PROGRESS REPORT ---
Subjective Progress Note for:: 02/28/20 Subjective:: Patient stable loss critically ill probably of DIC, platelet count extremely low, order PT/PTT, fibrinogen level, d-dimer,Patient is comfort/hospice appropriate, family yet to come to see patient, still DNR. Patient not expected to do well, continue to require noninvasive positive pressure ventilation Reason For Visit: ACUTE KIDNEY INJURY,HYPOTENSION,SHOCK LIVER,SEPSIS Physical Exam Vital Signs: Temp Pulse Resp BP Pulse Ox 99.1 F 84 30 H 93/64 L 100 02/28/20 19:29 02/28/20 19:29 02/28/20 20:29 02/28/20 19:29 02/28/20 20:29 Intake & Output 02/27/20 02/28/20 02/29/20 06:59 06:59 06:59 Intake Total 2080 1018 481 Output Total 4100 1850 775 Balance -2020 -832 -294 Weight 73.9 kg 71.8 kg 71.8 kg General appearance: PRESENT: mild distress Eye exam: PRESENT: PERRLA Respiratory exam: PRESENT: rhonchi Cardiovascular exam: PRESENT: +S1, +S2 GI/Abdominal exam: PRESENT: soft Results Laboratory Results: 02/28/20 09:11 02/28/20 06:32 02/28/20 02/28/20 02/28/20 06:32 06:32 09:11 WBC Cancelled 13.0 H RBC Cancelled 4.92 Hgb Cancelled 13.1 L D Hct Cancelled 39.0 MCV Cancelled 79 L MCH Cancelled 26.6 L MCHC Cancelled 33.6 RDW Cancelled 15.7 H Plt Count Cancelled 24 L* Seg Neutrophils % Cancelled Not Reportable Sodium 141.0 Potassium 3.7 Chloride 100 Carbon Dioxide 20 L Anion Gap 21 H BUN 62 H Creatinine 5.36 H Est GFR ( Amer) 13 L Glucose 75 Calcium 8.4 02/18/20 02/18/20 02/18/20 07:33 07:33 07:33 Creatine Kinase 187 H CK-MB (CK-2) Troponin I 0.032 NT-Pro-B Natriuret Pep 2760 H 02/18/20 02/18/20 02/18/20 14:19 14:19 17:27 Creatine Kinase 163 186 H CK-MB (CK-2) 1.63 Troponin I 0.028 NT-Pro-B Natriuret Pep 02/18/20 02/19/20 02/19/20 17:27 00:46 00:46 Creatine Kinase 154 CK-MB (CK-2) 1.48 1.26 Troponin I 0.033 0.029 NT-Pro-B Natriuret Pep Impressions: Renal Ultrasound 02/18/20 09:10 IMPRESSION: 1. No hydronephrosis. 2. Left-sided renal cysts that measure up to 4.5 x 4.5 x 3.8 cm. 3. Pineda catheter within the contracted urinary bladder. Venous Doppler Study 02/22/20 00:00 IMPRESSION: No acute DVT. Acute/subacute SVT of the cephalic and basilic veins. Chest X-Ray 02/25/20 13:59 IMPRESSION: NO SIGNIFICANT INTERVAL CHANGE. NO CHANGE IN THE LEFT APICAL PNEUMOTHORAX. NO CHANGE IN DIFFUSE BILATERAL AIRSPACE DISEASE. Assessment & Plan - Diagnosis (1) Acute kidney injury Is this a current diagnosis for this admission?: Yes Plan: Patient did not require hemodialysis today (2) Chronic combined systolic and diastolic heart failure Is this a current diagnosis for this admission?: Yes (3) Hyperkalemia Is this a current diagnosis for this admission?: Yes (4) Metabolic acidosis Is this a current diagnosis for this admission?: Yes (5) Hypotension Qualifiers: Hypotension type: unspecified hypotension type Qualified Code(s): I95.9 - Hypotension, unspecified Is this a current diagnosis for this admission?: Yes (6) Acute hypoxemic respiratory failure Is this a current diagnosis for this admission?: Yes Plan: Patient continues to require BiPAP (7) Pneumonia Qualifiers: Pneumonia type: due to unspecified organism Lung location: unspecified part of lung Is this a current diagnosis for this admission?: Yes (8) Acute embolism from left basilic vein Is this a current diagnosis for this admission?: Yes (9) Sepsis Qualifiers: Sepsis type: sepsis due to unspecified organism Sepsis acute organ dysfunction status: with acute organ dysfunction Severe sepsis acute organ dysfunction type: acute renal failure Acute renal failure type: with acute tubular necrosis Severe sepsis shock status: with septic shock Qualified C ode(s): A41.9 - Sepsis, unspecified organism; R65.21 - Severe sepsis with septic shock; N17.0 - Acute kidney failure with tubular necrosis Is this a current diagnosis for this admission?: Yes (10) UTI (urinary tract infection) due to Enterococcus Is this a current diagnosis for this admission?: Yes (11) Hypoglycemia Is this a current diagnosis for this admission?: Yes (12) Thrombocytopenia Is this a current diagnosis for this admission?: Yes Plan: Patient probably have DIC, platelet count extremely low, - Time Time Spent with patient: 35 or more minutes Level of Care: IMCU Medications reviewed and adjusted accordingly: Yes
[2020-02-28 23:12] LABS: INTERNATIONAL RATION (INR) 1.33; PROTHROMBIN TIME 16.6 SEC (11.4-15.4)
[2020-02-28 23:13] LABS: FIBRINOGEN 391 mg/dL (209-497)
[2020-02-28 23:41] LABS: D-DIMER 19.68 ug/mL (0.00-0.50)
[2020-02-29] MEDS: LINEZOLID 600 MG/300 ML RTUPB IV SCH (05:54)
[2020-02-29] MEDS: HEPARIN SOD (PORCINE) 5,000 UNIT/ML 1 ML VIAL SUBCUT SCH ×3 (05:55→21:01)
[2020-02-29] MEDS: CALCIUM CARBONATE 600 MG TABLET PO SCH ×2 (10:20→17:28)
[2020-02-29] MEDS: CALCITRIOL 0.25 MCG CAPSULE PO SCH (10:20)
[2020-02-29] MEDS: MORPHINE SULFATE 10 MG/ML INJ IV PRN ×2 (10:28→23:13)
[2020-02-29] MEDS: DEXTROSE 50%-WATER SYRINGE 12.5 GM/25 ML DOSE IV PRN (12:11)
[2020-02-29] MEDS: NORMAL SALINE 250 ML with FUROSEMIDE 250 MG IV PRN ×2 (17:28)
[2020-02-29] MEDS: PHARMACY COMMUNICATION ORDER MC SCH (17:30)
[2020-02-29] MEDS: DOPAMINE HCL 800 MG/D5W 250 ML IV PRN (17:45)
--- NOTE | 2020-02-29 18:15 | PDOC PROGRESS REPORT ---
Subjective Progress Note for:: 02/29/20 Subjective:: Patient remain lethargic. Maintain on IV Lasix and Dopamine infusion. Awaiting family decision regarding hospice/palliative care placement. Continued intermittent episodes of asymptomatic hypotension. Reason For Visit: ACUTE KIDNEY INJURY,HYPOTENSION,SHOCK LIVER,SEPSIS Physical Exam Vital Signs: Temp Pulse Resp BP Pulse Ox 98.2 F 86 24 H 100/85 100 02/29/20 15:15 02/29/20 17:00 02/29/20 16:30 02/29/20 17:00 02/29/20 15:15 Intake & Output 02/28/20 02/29/20 03/01/20 06:59 06:59 06:59 Intake Total 1018 701 366 Output Total 1850 1375 Balance -832 -674 366 Weight 71.8 kg 69.2 kg General appearance: PRESENT: severe distress - on BiPAP support Head exam: PRESENT: atraumatic, normocephalic Eye exam: PRESENT: conjunctiva pink. ABSENT: scleral icterus Mouth exam: PRESENT: dry mucosa Cardiovascular exam: PRESENT: RRR, +S1, +S2. ABSENT: diastolic murmur, rubs, systolic murmur Vascular exam: ABSENT: pallor GI/Abdominal exam: PRESENT: normal bowel sounds, soft. ABSENT: distended, guarding, mass, organolmegaly, rebound, tenderness Extremities exam: PRESENT: left AKA, right AKA, pedal edema Neurological exam: PRESENT: altered Skin exam: PRESENT: dry, warm Results Laboratory Results: 02/28/20 09:11 02/28/20 06:32 02/18/20 02/18/20 02/18/20 07:33 07:33 07:33 Creatine Kinase 187 H CK-MB (CK-2) Troponin I 0.032 NT-Pro-B Natriuret Pep 2760 H 02/18/20 02/18/20 02/18/20 14:19 14:19 17:27 Creatine Kinase 163 186 H CK-MB (CK-2) 1.63 Troponin I 0.028 NT-Pro-B Natriuret Pep 02/18/20 02/19/20 02/19/20 17:27 00:46 00:46 Creatine Kinase 154 CK-MB (CK-2) 1.48 1.26 Troponin I 0.033 0.029 NT-Pro-B Natriuret Pep Impressions: Renal Ultrasound 02/18/20 09:10 IMPRESSION: 1. No hydronephrosis. 2. Left-sided renal cysts that measure up to 4.5 x 4.5 x 3.8 cm. 3. Pineda catheter within the contracted urinary bladder. Venous Doppler Study 02/22/20 00:00 IMPRESSION: No acute DVT. Acute/subacute SVT of the cephalic and basilic veins. Chest X-Ray 02/25/20 13:59 IMPRESSION: NO SIGNIFICANT INTERVAL CHANGE. NO CHANGE IN THE LEFT APICAL PNEUMOTHORAX. NO CHANGE IN DIFFUSE BILATERAL AIRSPACE DISEASE. Assessment & Plan - Diagnosis (1) Acute respiratory failure with hypercapnia Is this a current diagnosis for this admission?: Yes Plan: Continue current supportive care management. (2) Acute kidney injury Is this a current diagnosis for this admission?: Yes Plan: Continue current with IV Lasix and Dopamine infusion as well as supportive care management. (3) Thrombocytopenia Is this a current diagnosis for this admission?: Yes Plan: Multi-factorial in view of his multiple medical problems. Continue supportive care at this time. (4) Chronic combined systolic and diastolic CHF (congestive heart failure) Is this a current diagnosis for this admission?: Yes Plan: Continue current medication management. Overall prognosis very poor. (5) Hypotension Qualifiers: Hypotension type: unspecified hypotension type Qualified Code(s): I95.9 - Hypotension, unspecified Is this a current diagnosis for this admission?: Yes Plan: Continue current medication management. Overall prognosis very poor. - Time Time Spent with patient: 25-34 minutes Level of Care: IMCU Medications reviewed and adjusted accordingly: Yes Anticipated discharge: Hospice Within: Other - Inpatient Certification Based on my medical assessment, after consideration of the patient's comorbid ities, presenting symptoms, or acuity I expect that the services needed warrant INPATIENT care.: Yes I certify that my determination is in accordance with my understanding of Medicare's requirements for reasonable and necessary INPATIENT services [42 CFR 412.3e].: Yes Medical Necessity: Significant Comorbidiites Make Outpatient Treatment Too Risky, Need Close Monitoring Due to Risk of Patient Decompensation, Need For Continuous Telemetry Monitoring, Need for IV Antibiotics, Risk of Complication if Not Cared For in Hospital, Risk of Diagnosis Which Will Require Inpatient Eval/Care/Monitoring Post Hospital Care: D/C or Transfer Summary - Plan Summary Plan Summary: Continue current medication management. Overall prognosis very poor. Awaiting family decision regarding hospice placement.
[2020-02-29] MEDS: DEXTROSE 50%-WATER SYRINGE 25 GM/50 ML DOSE IV PRN ×2 (18:40→21:26)
[2020-02-29] MEDS ORDERED: ACETAMINOPHEN 325 MG SUPP.RECT PR PRN (20:43)
[2020-02-29] MEDS: AMPICILLIN SODIUM/SULBACTAM NA 1.5 GM in NORMAL SALINE 50 ML IV SCH ×2 (21:03→21:26)
[2020-02-29 23:04] VITALS: BP 66/46
[2020-02-29] MEDS ORDERED: MORPHINE SULFATE 10 MG/ML INJ IV PRN (23:11)
--- NOTE | 2020-03-02 08:42 | Death Summary ---
Summary Date : 03/01/20 Autopsy: No - Final Diagnosis (1) Sepsis Is this a current diagnosis for this admission?: Yes (2) Acute kidney injury Is this a current diagnosis for this admission?: Yes (3) Chronic combined systolic and diastolic heart failure Is this a current diagnosis for this admission?: Yes (4) Hyperkalemia Is this a current diagnosis for this admission?: Yes (5) Metabolic acidosis Is this a current diagnosis for this admission?: Yes (6) Hypotension Is this a current diagnosis for this admission?: Yes (7) Acute hypoxemic respiratory failure Is this a current diagnosis for this admission?: Yes (8) Pneumonia Is this a current diagnosis for this admission?: Yes (9) Acute embolism from left basilic vein Is this a current diagnosis for this admission?: Yes (10) UTI (urinary tract infection) due to Enterococcus Is this a current diagnosis for this admission?: Yes (11) Hypoglycemia Is this a current diagnosis for this admission?: Yes (12) Thrombocytopenia Is this a current diagnosis for this admission?: Yes (13) Disseminated intravascular coagulopathy Is this a current diagnosis for this admission?: Yes Hospital Course:: Patient was admitted for the management of sepsis, and shock state, he developed acute kidney injury due to ATN. He underwent a hemodialysis. Patient required noninvasive positive pressure ventilation, BiPAP, he was a DNR status. Hospital course was eventful, he was treated with IV antibiotic Unasyn and Zyvox this cover potential pathogens including MRSA, gram-negative organisms.He also developed episode of hypoglycemia, it was difficult for patient to eat, Whenever the BiPAP is off patient the oxygen saturation would drop, patient could not tolerate to breathe without BiPAP machine continuously. The urine culture grew Enterococcus faecalis, E. coli
[2020-03-02 14:14] LABS: PATH REVIEW PATHOLOGIST REVIEWED
== END 2020-03-01 05:14 | DRG 871 ==
LOC: ER 04:04 → EH 09:27 → 3W 13:40
PROVIDERS: ADMIT Internal Medicine; ATTEND Internal Medicine
PROC: 06HM33Z Insertion of Infusion Device into Right Femoral Vein, Percutaneous Approach (ICD-10-PCS; 2020-02-20)
PROC: 5A1D70Z Performance of Urinary Filtration, Intermittent, Less than 6 Hours Per Day (ICD-10-PCS; 2020-02-21)
PROC: 5A09557 Assistance with Respiratory Ventilation, Greater than 96 Consecutive Hours, Continuous Positive Airway Pressure (ICD-10-PCS; principal; 2020-02-22)
DX: A41.9 Sepsis, unspecified organism (principal); J96.01 Acute respiratory failure with hypoxia; J18.9 Pneumonia, unspecified organism; N17.0 Acute kidney failure with tubular necrosis; D65 Disseminated intravascular coagulation [defibrination syndrome]; R65.21 Severe sepsis with septic shock; I50.42 Chronic combined systolic (congestive) and diastolic (congestive) heart failure; E87.2 Acidosis; N39.0 Urinary tract infection, site not specified; I82.612 Acute embolism and thrombosis of superficial veins of left upper extremity; I13.0 Hypertensive heart and chronic kidney disease with heart failure and stage 1 through stage 4 chronic kidney disease, or unspecified chronic kidney disease; Q61.02 Congenital multiple renal cysts; R64 Cachexia; I48.20 Chronic atrial fibrillation, unspecified; B95.2 Enterococcus as the cause of diseases classified elsewhere; E16.2 Hypoglycemia, unspecified; E87.5 Hyperkalemia; B96.20 Unspecified Escherichia coli [E. coli] as the cause of diseases classified elsewhere; F03.90 Unspecified dementia, unspecified severity, without behavioral disturbance, psychotic disturbance, mood disturbance, and anxiety; I48.91 Unspecified atrial fibrillation; F32.9 Major depressive disorder, single episode, unspecified; I95.9 Hypotension, unspecified; E86.0 Dehydration; E83.51 Hypocalcemia; Z66 Do not resuscitate; N18.3 Chronic kidney disease, stage 3 (moderate); D63.1 Anemia in chronic kidney disease; I73.9 Peripheral vascular disease, unspecified; E78.5 Hyperlipidemia, unspecified; E83.89 Other disorders of mineral metabolism; R27.8 Other lack of coordination; K75.9 Inflammatory liver disease, unspecified; I25.2 Old myocardial infarction; Z78.1 Physical restraint status; Z99.2 Dependence on renal dialysis; Z89.612 Acquired absence of left leg above knee; Z89.611 Acquired absence of right leg above knee; Z95.0 Presence of cardiac pacemaker; Z95.1 Presence of aortocoronary bypass graft; Z79.899 Other long term (current) drug therapy; Z79.01 Long term (current) use of anticoagulants; Z03.818 Encounter for observation for suspected exposure to other biological agents ruled out; Z87.891 Personal history of nicotine dependence; Z79.4 Long term (current) use of insulin; Z82.49 Family history of ischemic heart disease and other diseases of the circulatory system
CPT/HCPCS: 36415; 36600; 71045; 71046; 76770; 80048; 80053; 80061; 80307; 81001; 82140; 82150; 82330; 82533; 82550; 82553; 82803; 82962; 83036; 83605; 83690; 83735; 83880; 83970; 84100; 84439; 84443; 84484; 85025; 85027; 85379; 85384; 85610; 85730; 86317; 86704; 86850; 86900; 86901; 87040; 87070; 87086; 87088; 87186; 87340; 87522; 87635; 87880; 93005; 93010; 93306; 93971; 94640; 94660; 96374; 96375; 99285; J0610; C9803; J0295; J1265; J1610; J1644; J1815; J1940; J2020; J2270; J3490; J7030; J7050; J7060; J7620; P9047